=== PATIENT | female | born 2005 | race African-American/Black ===

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

== ENCOUNTER 2023-10-01 14:29 | Outpatient (CLI) | payer OTHER, SELFPAY ==
[2023-10-01] VITALS (8 sets, daily range): BP systolic 134–146; BP diastolic 90–102; PULSE 78–90; BMI 23.1
[2023-10-01 15:22] LABS: Basophils Percent Auto 0.6 % (0.2-1.2); Eosinophils Absolute Auto 0.1 K/mm3 (0-0.3); Eosinophils Percent Auto 1.9 % (0-4.4); Hematocrit 27.9 % (37.0-47.0); Hemoglobin 9.2 g/dL (12.0-15.0); Immature Granulocyte Absolute 0.07 K/mm3 (0.00-0.031); Immature Granulocyte Percent A 1.4 % (0-0.5); Lymphocytes Absolute Auto 1.04 K/mm3 (0.9-3.2); Lymphocytes Percent Auto 20.2 % (18.3-44.2); Mean Corpuscular Hemoglobin 26.6 pg (26-34); Mean Corpuscular Volume 80.6 fl (80-100); Mean Platelet Volume 9.7 fl (7.4-10.4); Monocytes Absolute Auto 0.5 K/mm3 (0.1-0.6); Monocytes Percent Auto 8.9 % (2.6-8.5); Neutrophils Absolute Auto 3.5 K/mm3 (1.3-6.7); Platelet Count Result 217 k/mm3 (150-375); Red Blood Count 3.46 M/mm3 (4.2-5.4); Red Cell Distribution Width 14.4 % (11.5-14.5); White Blood Count 5.2 K/mm3 (4.5-10.0)
[2023-10-01 15:35] LABS: Alanine Aminotransferase 11 U/L (6-35); Albumin Level 3.5 g/dL (3.5-5.1); Alkaline Phosphatase 189 U/L (38-126); Anion Gap 7 mmol/L (8-16); Aspartate Amino Transferase 24 U/L (14-36); Bilirubin,Total 1.3 mg/dL (0.2-1.3); Blood Urea Nitrogen 3 mg/dL (7-17); Calcium 8.6 mg/dL (8.4-10.2); Carbon Dioxide 22 mmol/L (22-30); Chloride 105 mmol/L (98-107); Estimated CRCL calculation 110 ml/min; Estimated Glomerular Filt Rate > 60; Glucose 77 mg/dL (65-110); Potassium 3.3 mmol/L (3.4-5.0); Sodium 134 mmol/L (137-145); Uric Acid 4.2 mg/dL (2.5-7.5)
[2023-10-01 15:42] LABS: Appearance Urine Cloudy (Clear); Bacteria Urine Rare /hpf; Bilirubin Urine Negative (Negative); Blood Urine Negative (Negative); Color Urine Yellow (Yellow); Glucose Urine UA Negative (Negative); Ketones Urine Negative (Negative); Leukocyte Esterase Ur Trace LEU/UL (Negative); Need Manual Microscopic Reviewed; Nitrate Urine Negative (Negative); Non Pathogenic Casts 0-2; Protein Urine Negative (Negative); RBC Urine 0-2 /hpf (0-2); Specific Grav Ur 1.003 (1.001-1.035); Squamous Epithelial Cell Urine Few /hpf (Few); WBC Urine 0-5 /hpf
[2023-10-01 15:46] LABS: Add Urine Microscopic? YES
[2023-10-01 15:59] LABS: Creatinine Urine 24.3 mg/dL; Total Protein Urine Random 15 mg/dL; Ur Ttl Prot Creatinine Ratio 0.62 mg/mg (0-0.20)
--- NOTE | 2023-10-01 16:17 | PC.NURSE ---
1604 called Servando Tavera to give labs and BP updates. Servando Tavera to talk to Dr Perez and call back. 1609 Liang called back pt to follow up in office friday, pt will receive call from office also one time pill 20mEq potassium tab then Ok to DC pt home
[2023-10-01] MEDS: POTASSIUM CHLORIDE 20 MEQ ER TABLET PO (16:46)
== END 2023-10-01 16:51 | disposition home or self-care (01) ==
LOC: ANHOBOP 14:34 → ANHOBPP 14:46
PROVIDERS: Visit Provider Obstetrics & Gynecology
DX: O13.9 Gestational [pregnancy-induced] hypertension without significant proteinuria, unspecified trimester (principal); Z3A.00 Weeks of gestation of pregnancy not specified
CPT/HCPCS: 36415; 59025; 80053; 81001; 82570; 84156; 84550; 85025; 99199; A9270

== ENCOUNTER 2023-10-03 15:21 | Outpatient (RCR) | payer OTHER, SELFPAY ==
[2023-10-03 15:46] VITALS: BP 140/88; PULSE 90
[2023-10-03 15:54] VITALS: BP 140/88; PULSE 88
== END 2024-01-01 23:59 | disposition home or self-care (01) ==
LOC: ANHLDR 15:21
PROVIDERS: Visit Provider Obstetrics & Gynecology
DX: O16.3 Unspecified maternal hypertension, third trimester (principal); Z3A.36 36 weeks gestation of pregnancy
CPT/HCPCS: 59025

== ENCOUNTER 2025-05-26 15:37 | Observation (INO) | payer MEDICAID, SELFPAY ==
[2025-05-26] VITALS (11 sets, daily range): BP systolic 108–124; BP diastolic 58–74; PULSE 78–107; BMI 23.9
[2025-05-26 16:33] LABS: Add Urine Microscopic? YES; Appearance Urine Clear (Clear); Glucose Urine UA Negative (Negative); Leukocyte Esterase Ur Trace LEU/UL (Negative); Nitrate Urine Negative (Negative); Non Pathogenic Casts 0-2; Specific Grav Ur 1.019 (1.001-1.035)
[2025-05-26] MEDS: ACETAMINOPHEN 500 MG TABLET 1000 MG PO (17:40)
[2025-05-26] MEDS: CAFFEINE 200 MG TABLET PO (17:42)
--- NOTE | 2025-05-26 18:54 | OBADM ---
This patient, Gisela Bates, admitted to the OB room OB Post 115 at 1537 for observation. Patient/family oriented to hospital policies and general routines including ID bracelet, bed and alarms, visiting hours, pain management, procedures, bathroom and other care routines, personal items, smoking policy, room service/diet, and visiting hours. Patient/Family are encouraged to report perceived risks to care and to ask questions if they do not understand what they are told or what they should do.
[2025-05-26] MEDS: METOCLOPRAMIDE HCL 10 MG TABLET PO (20:22)
[2025-05-26] MEDS: diphenhydrAMINE HCl CAP 25 MG CAPSULE PO (20:22)
--- NOTE | 2025-05-26 22:36 | PC.NURSE ---
Provider, Dr. Le, notified at 2134 regarding patient status. Provider notified that patient is complaining of a headache of 7/10 and back pain as a 10/10. Provider updated of medications given during stay. Per Dr. Le, do a cervical exam to check for any dilation. If no signs of labor, patient to discharge home and to follow up with him in the office. Patient updated on discharge plan. Patient notes does not have a ride but will call to see if someone can order an Uber. Verified plan with patient and found patient teary eyed and states that headache pain is a 10/10 and back pain is a 10/10. This RN updated Dr. Le at 0. Updated Dr. Le of hx of Pre-eclampsia with previous . Due to blood pressures within normal range, orders to discharge home and follow up in the office on 05/27/2025. Patient updated on plan and voiced understanding and will call an Uber for discharge.
--- NOTE | 2025-06-15 22:14 | PM.OBTRLD ---
OB - Triage/Final Diagnosis Visit Information Comments/Additional reasons for admission: I have assessed the risk for this patient, Gisela Bates, and determined that she would benefit from observation care. Evaluation Laboratory results: Laboratory Tests 05/26/25 16:11 Urine Color Yellow Urine Appearance Clear Urine pH 7.5 Ur Specific [place] 1.019 Urine Protein Negative Urine Glucose (UA) Negative Urine Ketones Negative Ur Blood (Man) Negative Urine Nitrate Negative Urine Bilirubin Negative Urine Urobilinogen 4.0 H Leukocyte Esterase Rfl Trace H Urine RBC 3-5 H Urine WBC 0-5 Ur Squamous Epith Cells Occasional Urine Bacteria None seen Urine Casts 0-2 Final Diagnosis (1) Back pain affecting : Code(s): O99.891 - Other specified diseases and conditions complicating ; M54.9 - Dorsalgia, unspecified Status: Acute
== END 2025-05-26 23:00 | disposition home or self-care (01) ==
PROVIDERS: Admitting Provider Obstetrics & Gynecology; Visit Provider Obstetrics & Gynecology
DX: O99.891 Other specified diseases and conditions complicating pregnancy (principal); M54.9 Dorsalgia, unspecified; Z3A.33 33 weeks gestation of pregnancy
CPT/HCPCS: 81001; A9270; G0378; G0379

== ENCOUNTER 2025-06-07 08:41 | Outpatient (CLI) | payer MEDICAID, SELFPAY ==
[2025-06-07] VITALS (12 sets, daily range): BP systolic 111–125; BP diastolic 62–77; PULSE 78–91
[2025-06-07 10:08] LABS: Add Urine Microscopic? YES; Appearance Urine Clear (Clear); Glucose Urine UA Negative (Negative); Leukocyte Esterase Ur Trace LEU/UL (Negative); Nitrate Urine Negative (Negative); Non Pathogenic Casts 0-2; Specific Grav Ur 1.006 (1.001-1.035)
--- NOTE | 2025-06-07 11:38 | PC.NURSE ---
Spoke to Dr. Perez (operations intelligence for Dr. Le) Discused pt. came in for leaking and back pain. UA insignificant, contractions were 2-7 minutes apart but have become uterine irritability with PO hydration. Pt. has had recurring HAs and back pain given tylenol and Flexeril in the past without relief. Orders received to send pt. home and pt. can have tylenol if needed and needs to continue with PO hydration.
--- NOTE | 2025-06-07 11:56 | LDADM ---
This patient, Gisela Bates, was admitted to OB Post 116 on at 08:41. Plans for labor, pain management and were discussed with patient. Patient/family oriented to hospital policies and general routines including ID bracelet, bed and alarms, visiting hours, pain management, procedures, bathroom and other care routines, personal items, smoking policy, room service/diet and guest tray routines, security routines, and visiting hours. Patient/Family are encouraged to report perceived risks to care and to ask questions if they do not understand what they are told or what they should do. See [facility] for further documentation.
[2025-06-07 12:03] LABS: OBXCEM ROM Plus Negative (Negative)
== END 2025-06-07 13:32 | disposition home or self-care (01) ==
LOC: ANHOBOP 08:46 → ANHOBPP 08:46
PROVIDERS: Visit Provider Obstetrics & Gynecology
DX: O42.90 Premature rupture of membranes, unspecified as to length of time between rupture and onset of labor, unspecified weeks of gestation (principal); Z3A.00 Weeks of gestation of pregnancy not specified
CPT/HCPCS: 81001; 84112; 99199

== ENCOUNTER 2025-07-01 06:11 | Inpatient (IN) | payer MEDICAID, SELFPAY ==
[2025-07-01] VITALS (152 sets, daily range): BP systolic 95–135; BP diastolic 42–108; PULSE 36–153; RESP 17–20; TEMP 36.1–37.3; O2SAT 90–100
--- OUTSIDE RECORDS SUMMARY | 2025-07-01 06:17 | XMS_ITS | Continuity of Care Document ---
Author Organization [facility] Address [address] [place] [address] Assessment No assessment recorded. Plan of Treatment Reminders Order Date Submit Date Provider Last Modified By Organization Details Last Modified Time Details Appointments INDUCTI ON 2024 06:30A Alondra LE MD Not available Not available Not available U/S OB BPP 2024 09:30A M ULTRASOUND Not available Not available Not available NST 2024 10:00A M NST SCHEDULE Not available Not available Not available OB ROUTINE 2024 10:30A M Vincent LE MD Not available Not available Not available Lab None recorde d. Referral None recorde d. Procedures None recorde d. Surgeries None recorde d. Imaging None recorde d. Medication Orders cyclobe nzaprin e 5 mg tablet [address] [place] [address] [id number], [address] [facility], [place], [place], [id number], 05/27/2025 09:39:42 Patient TargetsNo targets recorded. Patient InstructionsNo instructions recorded. Reason for Referral None Reported. Results Created Date Observation Date Name Description Value Unit Range Abnormal Flag Note LastModifiedBy Organization Detail LastModifiedTime 03/17/2003/17/2025 CULTU RE: URINE result report SEE RESULT S BELOW Test: Cultu re: Urine Speci men Sourc e: Urine Voide d Speci men Type: Urine Speci men Date: 2024 1305 Resul t Date: 025 0618 Resul t Statu s: Final resul t Abnor mal: No Ivonne negreteg Lab: [facility] [address] [facility] [address] Tel: CULTU RE ----- ----- ----- --- No growt h in 1 day (dete ction level of 10,00 0 colon ies / ml.) Not Available [facility] (Lab) [address] [facility], [place], [address], 03/19/2025 07:23:20 03/17/2003/17/2025 CBC W/DIF F WBC 5.0 10'3/ uL 3.5-10 .5 Not Available [facility] (Lab) [address] [facility], [place], [address], 03/21/2025 14:27:06 03/17/20 25 03/17/2025 CBC W/DIF F RBC 3.57 10'6/ uL (based on docume nted legal sex) 3.80-5 .20 low Not Available [facility] (Lab) [address] [place], [address], 03/21/2025 14:27:06 03/17/20 25 03/17/2025 CBC W/DIF F HGB 10.5 g/dL (based on docume nted legal sex) 11.6-1 5.4 low Not Available [facility] (Lab) [address] [place], [address], 03/21/2025 14:27:06 03/17/20 25 03/17/2025 CBC W/DIF F HCT 30.2 % (based on docume nted legal sex) 34.0-4 5.0 low Not Available [facility] (Lab) [address] [place], [address], 03/21/2025 14:27:06 03/17/20 25 03/17/2025 CBC W/DIF F MCV 84.6 fL 80.0-9 9.0 Not Available [facility] (Lab) [address] [facility], [place], [address], 03/21/2025 14:27:06 03/17/20 25 03/17/2025 CBC W/DIF F MCH 29.4 pg 27.0-3 4.0 Not Available [facility] (Lab) [address] [facility], [place], [address], 03/21/2025 14:27:06 03/17/20 25 03/17/2025 CBC W/DIF F MCHC 34.8 g/dL 32.0-3 5.5 Not Available [facility] (Lab) [address] [facility], [place], [address], 03/21/2025 14:27:06 03/17/20 25 03/17/2025 CBC W/DIF F RDW 13.3 % 11.0-1 5.0 Not Available [facility] (Lab) [address] [facility], [place], [address], 03/21/2025 14:27:06 03/17/20 25 03/17/2025 CBC W/DIF F plt 235 10'3/ uL 150-40 0 Not Available [facility] (Lab) [address] [facility], [place], [address], 03/21/2025 14:27:06 03/17/20 25 03/17/2025 CBC W/DIF F MPV 10.4 fL 8.8-12 .1 Not Available [facility] (Lab) [address] [facility], [place], [address], 03/21/2025 14:27:06 03/17/20 25 03/17/2025 CBC W/DIF F NRBC's 0.0 % 0.0 Not Available [facility] (Lab) [address] [facility], [place], [address], 03/21/2025 14:27:06 03/17/20 25 03/17/2025 CBC W/DIF F absolute NRBCs 0.0 10'3/ uL no refere nce range establ ished Not Available [facility] (Lab) [address] [facility], [place], [address], 03/21/2025 14:27:06 03/17/20 25 03/17/2025 CBC W/DIF F neutrophils 72.4 % 34.0-7 3.0 Not Available [facility] (Lab) [address] [facility], [place], [address], 03/21/2025 14:27:06 03/17/20 25 03/17/2025 CBC W/DIF F lymphocytes 14.4 % 15.0-5 0.0 low Not Available [facility] (Lab) [address] [facility], [place], [address], 03/21/2025 14:27:06 03/17/20 25 03/17/2025 CBC W/DIF F monocytes 6.6 % 1.0-15 .0 Not Available [facility] (Lab) [address] [facility], [place], [address], 03/21/2025 14:27:06 03/17/20 25 03/17/2025 CBC W/DIF F eosinophils 5.2 % 0.0-8. 0 Not Available [facility] (Lab) [address] [facility], [place], [address], 03/21/2025 14:27:06 03/17/20 25 03/17/2025 CBC W/DIF F basophils 0.4 % 0.0-2. 0 Not Available [facility] (Lab) [address] [facility], [place], [address], 03/21/2025 14:27:06 03/17/20 25 03/17/2025 CBC W/DIF F immature granulocytes 1.0 % no define d refere nce range Immat ure Granu locyt es (IG) repre sents autom ated enume ratio n of Metam yeloc ytes, Myelo cytes and Promy elocy freda when IG is < 5%. Blast s are not inclu ded in IG and repor jluis separ ately if prese nt. Not Available [facility] (Lab) [address] [facility], [place], [address], 03/21/2025 14:27:06 03/17/20 25 03/17/2025 CBC W/DIF F absolute neutrophils 3.6 10'3/ uL 1.5-8. 0 Not Available [facility] (Lab) [address] [facility], [place], [address], 03/21/2025 14:27:06 03/17/20 25 03/17/2025 CBC W/DIF F absolute lymphocytes 0.7 10'3/ uL 1.0-4. 0 low Not Available [facility] (Lab) [address] [facility], [place], [address], 03/21/2025 14:27:06 03/17/20 25 03/17/2025 CBC W/DIF F absolute monocytes 0.3 10'3/ uL 0.2-1. 0 Not Available [facility] (Lab) [address] [facility], [place], [address], 03/21/2025 14:27:06 03/17/20 25 03/17/2025 CBC W/DIF F absolute eosinophils 0.3 10'3/ uL 0.0-0. 6 Not Available [facility] (Lab) [address] [facility], [place], [address], 03/21/2025 14:27:06 03/17/20 25 03/17/2025 CBC W/DIF F absolute basophils 0.0 10'3/ uL 0.0-0. 3 Not Available [facility] (Lab) [address] [facility], [place], [address], 03/21/2025 14:27:06 03/17/20 25 03/17/2025 CBC W/DIF F absolute immature granulocytes 0.1 10'3/ uL 0.00-0 .10 Refer ence range s for nonbi nary/ inter sex or unspe cifie d gende r patie nts have not been estab lishe d. Ivet espinosa refer to the omar wing table for range s estab lishe d for cisge nder patie nts and evalu ate in the clini smita ronaldo xt of the indiv idual patie nt: https ://la bhand book. nm.or g/gen derx Not Available [facility] (Lab) [address], [place], [address], 03/21/2025 14:27:06 03/17/20 25 03/17/2025 HIV 1/2 ANTIG EN/AN TIBOD Y, REFLE X CONFI RMATI ON HIV antigen/anti body Nonrea ctive nonrea ctive HIV-1 antig en and HIV-1 /HIV- 2 antib odies were not detec jluis. No labor atory evide nce of HIV infec tion. Not Available [facility] (Lab) [address], [place], [address], 03/21/2025 14:27:06 03/17/2003/17/2025 HEPAT ITIS B SURFA CE ANTIG EN hepatitis B surface antigen Non-re active non-re active This assay was perfo rmed using [employer] ratio n reage nts and test kits. Value s obtai gayla with other assay metho ds or kits canno t be used inter lee eably . Not Available [facility] (Lab) [address], [place], [address], 03/21/2025 14:27:07 03/17/20 25 03/17/2025 HEPAT ITIS C ANTIB ELOISE SCREE N, REFLE X TO CONFI RMATI ON hepatitis C antibody Non-re active non-re active Antib odies to HCV Not Detec jluis, does not exclu de the possi bilit y of expos ure to HCV. Not Available [facility] (Lab) [address], [place], [address], 03/21/2025 14:27:07 03/17/20 25 03/17/2025 RUBEL LA IGG ANTIB ELOISE, QUANT rubella antibodies, IgG Reacti ve reacti ve Not Available [facility] (Lab) [address] [facility], [place], [address], 03/21/2025 14:27:08 03/17/20 25 03/17/2025 RUBEL LA IGG ANTIB ELOISE, QUANT rubella antibodies, IgG quant 14.2 IU/mL >=10 Non-r eacti ve (Non- Immun e) <10 IU/mL React reyna (Immu ne) > or = 10 IU/mL Not Available [facility] (Lab) [address] [facility], [place], [address], 03/21/2025 14:27:08 03/17/20 25 03/17/2025 TYPE/ RH/SC REEN ABO/Rh type B POS Not Available [facility] (Lab) [address] [facility], [place], [address], 03/21/2025 14:27:08 03/17/20 25 03/17/2025 TYPE/ RH/SC REEN antibody screen NEG Not Available [facility] (Lab) [address] [facility], [place], [address], 03/21/2025 14:27:08 03/17/20 25 03/17/2025 TYPE/ RH/SC REEN exp date 2024 23:59 Not Available [facility] (Lab) [address] [facility], [place], [address], 03/21/2025 14:27:08 03/17/20 25 03/17/2025 HEMOG LOBIN A1C hemoglobin A1C 4.5 % 4.0-5. 6 The Ameri can [employer] freda [employer] iatio n recom mends that a prima ry goal of thera bairon waldrop d be a HBA1C of < 7% and that physi cians yeceniaul d reeva luate the treat ment regim en in patie nts with HBA1C value s consi stent ly > 8%. <5.7% Evie l 5.7 - 6.4% Incre ased risk for diabe freda >=6.5 % Diagn ostic of diabe freda <7.0% Goal of thera py >8.0% Actio n sugge sted Not Available [facility] (Lab) [address] [facility], [place], [address], 03/21/2025 14:27:09 03/17/20 25 03/17/2025 RPR SCREE N, REFLE X TITER /CONF IRMAT ION RPR qualitative Reacti ve nonrea ctive abnormal A react reyna RPR resul t alone does not confi rm the prese nce of anti- Trepo nemal antib odies and shoul d be inter prete d with cauti on. This sampl e will be sent to a refer ence labor charity for Trepo nema palli dum Parti marcelo Agglu tinat ion (TP-P A) testi ng. Not Available [facility] (Lab) [address] [facility], [place], [address], 03/21/2025 14:27:09 03/17/20 25 03/17/2025 RPR SCREE N, REFLE X TITER /CONF IRMAT ION RPR titer 1:8 . none high Not Available [facility] (Lab) [address] [facility], [place], [address], 03/21/2025 14:27:09 03/17/20 25 03/17/2025 SYPHI LIS ANTIB ELOISE, TREPO NEMA PALLI DUM PARTI MARCELO AGGLU TINAT ION, SERUM syphilis Ab by TP-Pa, S Positi ve negati ve abnormal Resul t sugge sts infec tion with T. palli dum at some time in the past, but does not disti nguis h betwe en treat ed and untre ated syphi lis as trepo nemal antib odies can remai n eleva jluis despi te prope r treat ment. RPR testi ng is recom loren d to disti nguis h betwe en treat ed and untre ated syphi lis. For addit ional infor matio n on inter preta tion of the syphi lis rever se algor ithm and resul ts, see: https ://ganesh sena [employer] / it-mm files /Syph ilis_ Serol ogy_A lgori thm.p df ----- ----- ----- ----A DDITI ONAL INFOR VANNA N---- ----- ----- ----- This test is inten ded to be used as a confi rmato ry test on sampl es that have been teste d by [facility] syphi lis test. Test Perfo rmed by: [facility] [place] [address], [place] [address] Lab Direc tor: Jay Manzano nn Ph.D. ; CLIA# [id number] Not Available [facility] (Lab) [address] [facility], [place], [address], 03/21/2025 14:27:10 03/29/2003/29/2025 CT/GC AND TRICH OMONA S VAGIN SILVA (RRNA ), URINE chlamydia trachomatis, PCR Negati ve negati ve Not Available [facility] (Lab) [address] [facility], [place], [address], 03/30/2025 14:21:33 03/29/2003/29/2025 CT/GC AND TRICH OMONA S VAGIN SILVA (RRNA ), URINE neisseria gonorrhoeae, PCR Negati ve negati ve Not Available [facility] (Lab) [address] [facility], [place], [address], 03/30/2025 14:21:33 03/29/2003/29/2025 CT/GC AND TRICH OMONA S VAGIN SILVA (RRNA ), URINE trichomonas vaginalis ribosomal RNA (rrna) Negati ve negati ve Not Available [facility] (Lab) [address] [facility], [place], [address], 03/30/2025 14:21:33 04/20/20 25 04/20/2025 HEMAT OCRIT (HCT) HCT 29.1 % (based on docume nted legal sex) 34.0-4 5.0 low Not Available [facility] (Lab) [address] [facility], [place], [address], 04/23/2025 15:25:44 04/20/20 25 04/20/2025 HEMOG LOBIN (HGB) HGB 9.3 g/dL (based on docume nted legal sex) 11.6-1 5.4 low Not Available [facility] (Lab) [address] [facility], [place], [address], 04/23/2025 15:25:45 04/20/20 25 04/20/2025 HIV 1/2 ANTIG EN/AN TIBOD Y, REFLE X CONFI RMATI ON HIV antigen/anti body Nonrea ctive nonrea ctive HIV-1 antig en and HIV-1 /HIV- 2 antib odies were not detec jluis. No labor atory evide nce of HIV infec tion. Not Available [facility] (Lab) [address] [facility], [place], [address], 04/23/2025 15:25:45 04/20/20 25 04/20/2025 RPR SCREE N, REFLE X TITER /CONF IRMAT ION RPR qualitative Reacti ve nonrea ctive abnormal A react reyna RPR resul t alone does not confi rm the prese nce of anti- Trepo nemal antib odies and shoul d be inter prete d with cauti on. This sampl e will be sent to a refer ence labor atory for Trepo nema palli dum Parti marcelo Agglu tinat ion (TP-P A) testi ng. Not Available [facility] (Lab) [address] [facility], [place], [address], 04/23/2025 15:25:46 04/20/20 25 04/20/2025 RPR SCREE N, REFLE X TITER /CONF IRMAT ION RPR titer 1:8 . none high Not Available [facility] (Lab) [address], [place], [address], 04/23/2025 15:25:46 04/20/20 25 04/20/2025 SYPHI LIS ANTIB ELOISE, TREPO NEMA PALLI DUM PARTI MARCELO AGGLU TINAT ION, SERUM syphilis Ab by TP-Pa, S Positi ve negati ve abnormal Resul t sugge sts infec tion with T. palli dum at some time in the past, but does not disti nguis h betwe en treat ed and untre ated syphi lis as trepo nemal antib odies can remai n eleva jluis despi te prope r treat ment. RPR testcedric fonseca is recom loren d to disti nguis h betwe en treat ed and untre ated syphi lis. For addit ional infor vanna n on inter preta tion of the syphi lis rever se algor ithm and resul ts, see: https ://ganesh sena [employer] / it-mm files /Syph ilis_ Serol ogy_A lgori thm.p df ----- ----- ----- ----A DDITI ONAL INFOR MATNOHEMY N---- ----- ----- ----- This test is inten ded to be used as a confi rmato ry test on sampl es that have been teste d by [facility] syphi lis test. Test Perfo rmed by: [facility] [place] [address], [place] [address] Lab Direc tor: Jay Manzano nn Ph.D. ; CLIA# [id number] Not Available [facility] (Lab) [address] [facility], [place], [address], 04/23/2025 15:25:46 05/27/20 25 05/27/2025 PROTE IN/CR EATIN INE RATIO , URINE creatinine, urine 123.0 mg/dL R-No refer ence range estab lishe d for this assay Not Available [facility] (Lab) [address] [facility], [place], [address], 05/28/2025 10:30:45 05/27/20 25 05/27/2025 PROTE IN/CR EATIN INE RATIO , URINE protein, urine 22 mg/dL R-No refer ence range estab lishe d for this assay Not Available [facility] (Lab) [address] [facility], [place], [address], 05/28/2025 10:30:45 05/27/20 25 05/27/2025 PROTE IN/CR EATIN INE RATIO , URINE protein/crea tinine ratio, urine 0.18 . No Refer ence Range avail able for Rando m Urine s. A prote in to creat inine ratio of >=0.1 9 is a good predi ctor of signi fican t prote inuri a. A level of <0.14 can rule out signi fican t prote inuri a. Not Available [facility] (Lab) [address] [facility], [place], [address], 05/28/2025 10:30:45 03/17/20 25 03/17/2025 US, obste tric, 2nd or 3rd trime ster No observ ation record ed. [email or web address] [address], [place], [address], 03/17/2025 15:45:06 03/17/20 25 03/17/2025 US, obste tric, 2nd or 3rd trime ster No observ ation record ed. [email or web address] [place] [address], [place], [address], 03/17/2025 12:51:02 03/17/20 25 03/17/2025 US, obste tric, 2nd or 3rd trime ster No observ ation record ed. [email or web address] [facility] [address], [place], [address], 04/07/2025 21:57:11 03/17/20 25 03/17/2025 US, obste tric, 2nd or 3rd trime ster No observ ation record ed. [email or web address] [facility] [address], [place], [address], 03/17/2025 23:04:51 03/17/20 25 03/17/2025 US, obste tric, 2nd or 3rd trime ster No observ ation record ed. [email or web address] [facility] [address], [place], [address], 03/17/2025 15:45:46 03/17/20 25 03/17/2025 US, obste tric, 2nd or 3rd trime ster No observ ation record ed. [email or web address] [facility] [address], [place], [address], 03/18/2025 17:16:02 05/18/2005/18/2025 , obste tric, follo w-up No observ ation record ed. [facility] [address], [place], [address], 05/18/2025 18:23:17 05/18/2005/18/2025 US, obste tric, follo w-up No observ ation record ed. [email or web address] [address] [address], [place], [address], 05/20/2025 13:20:22 05/25/2005/25/2025 , obste tric, bioph ysica l profi le + non-s tress test No observ ation record ed. [facility] [address], [place], [address], 05/25/2025 17:34:34 05/25/20 25 05/25/2025 US, obste tric, follo w-up No observ ation record ed. [email or web address] [facility] [address], [place], [address], 05/26/2025 14:44:53 05/25/2005/25/2025 non-s tress test No observ ation record ed. [email or web address] [place] [address], [place], [address], 05/25/2025 18:39:52 05/25/20 non-s tress test No observ ation record ed. [email or web address] [place] [address], [place], [address], 05/25/2025 17:32:07 05/30/2005/30/2025 US, obste tric, bioph ysica l profi le + non-s tress test No observ ation record ed. [email or web address] [place] [address], [place], [address], 05/30/2025 12:42:17 05/30/2005/30/2025 US, obste tric, bioph ysica l profi le + non-s tress test No observ ation record ed. [email or web address] [address] [address], [place], [address], 05/30/2025 17:35:43 05/30/2005/30/2025 non-s tress test No observ ation record ed. [email or web address] [place] [address], [place], [address], 05/30/2025 13:00:42 05/30/20 non-s tress test No observ ation record ed. [email or web address] [place] [address], [place], [address], 05/30/2025 13:02:59 06/06/2006/06/2025 US, obste tric, bioph ysica l profi le + non-s tress test No observ ation record ed. [email or web address] [place] [address], [place], [address], 06/06/2025 14:28:11 06/06/2006/06/2025 US, obstjesús tric, bioph ysica l profi le + non-s tress test No observ ation record ed. [email or web address] [address] [address], [place], [address], 06/06/2025 15:10:23 06/07/2006/07/2025 non-s tress test No observ ation record ed. [email or web address] [place] [address], [place], [address], 2025 20:27:42 06/07/20 non-s tress test No observ ation record ed. [email or web address] Not Available 2024 15:33:58 06/13/2006/13/2025 US, obste tric, follo w-up No observ ation record ed. [email or web address] [facility] [address], [place], [address], 06/14/2025 10:34:08 06/13/2006/13/2025 non-s tress test No observ ation record ed. [email or web address] [place] [address], [place], [address], 06/19/2025 18:04:34 06/13/20 non-s tress test No observ ation record ed. [email or web address] [place] [address], [place], [address], 06/13/2025 18:04:44 06/13/20 25 06/14/2025 US, obste tric, follo w-up No observ ation record ed. [email or web address] [place] [address], [place], [address], 06/14/2025 13:38:03 06/13/20 25 06/14/2025 US, obste tric, bioph ysica l profi le + non-s tress test No observ ation record ed. [email or web address] [place] [address], [place], [address], 06/14/2025 13:38:17 06/15/20 25 2025 non-s tress test No observ ation record ed. [facility] [address], [place], [address], 06/17/2025 09:42:27 06/20/2006/20/2025 US, obste tric, bioph ysica l profi le + non-s tress test No observ ation record ed. [email or web address] [place] [address], [place], [address], 06/20/2025 13:28:54 06/20/20 25 06/20/2025 US, obste tric, follo w-up No observ ation record ed. [email or web address] [facility] [address], [place], [address], 06/20/2025 16:32:26 06/20/20 25 06/20/2025 non-s tress test No observ ation record ed. [email or web address] [place] [address], [place], [address], 06/20/2025 18:00:22 06/20/20 non-s tress test No observ ation record ed. [place] [address], [place], [address], 06/20/2025 17:57:42 06/27/20 25 06/27/2025 US, obste tric, bioph ysica l profi le No observ ation record ed. [email or web address] [facility] [address], [place], [address], 06/28/2025 11:16:29 06/27/2006/27/2025 US, obste tric, bioph ysica l profi le + non-s tress test No observ ation record ed. [facility] [address], [place], [address], 06/27/2025 18:49:37 06/27/2006/27/2025 non-s tress test No observ ation record ed. [facility] [address], [place], [address], 06/27/2025 18:50:27 06/27/20 non-s tress test No observ ation record ed. [email or web address] [place] [address], [place], [address], 06/27/2025 12:29:10 Result Notes None recorded. Problems Name Problem SNOMED Code Status Onset Date Resolution Date Notes Provider Name and Address Organization Details Recorded Time Anemia 259554539 Completed Trino serrano, [facility] 4 13:00:34 Pre-ecla mpsia 237333412 Completed 37w Delivery , 2x/wk antenata l testing Trino Moulton [facility] 4 13:00:34 Group B Streptoc occus carrier [id number] 103 Completed AMP in labor Trino serrano [facility] 4 13:00:33 Pregnanc y 42025348 Completed 202210/27/2023 Jazz serrano [facility] 5 12:31:25 Syphilis 16399932 Completed 2022 no s/s, +fta abs- tx schedule d 06/05,, 2 Trino Moulton [facility], [facility] 4 13:00:34 Infectio n by Analia hidalgo [id number] Completed 2022 2/2 positive - tinidazo le tx 2/5 - RONEN in 4wks Trino Moulton [facility] 4 13:00:34 Gonorrhe a [id number] Completed 2022 PA sent 08/20 for Ceftriax one - RONEN NEGATIVE rTino Moulton [facility] 4 13:00:34 Pregnanc y [id number] Active 2024 Jazz Yonis [facility], [facility] 5 12:31:25 Past pregnanc y history of pre-ecla mpsia [id number] Active 2024 recommen ded ASA previous delivery PTL 36w6d 10/08/23 EDC 10/30/23 antenata l testing Juaan Warner [facility] 5 11:26:48 History of syphilis [id number] Active 2024 treated in previous pregnanc y titers 05/2023 1:32 decrease d to 1:8 03/17 Juana Warner [facility] 5 11:51:07 History of chlamydi al infectio n [id number] Active 2024 Isidro Le MD [address], [place], [address], [facility] 5 12:53:43 Iron deficien cy anemia 42079539 Active 2024 hgg decrease d 03-17 to 9-3 Iron infusion order faxed 05/04 _ pending insuranc e) Juana Timmy serrano [facility] 5 11:03:51 Finding of arrangem ent of fetus 12470227 Active 2024 Transver se Isidro Le MD [address], [place], [address], [facility] 17:33:30 Problem Notes None recorded. Medical Equipment None Reported. Allergies No known drug allergies Medications Name Sig Start Date Stop Date Status Note LastModified by Organization Details LastModified Time fluconazo le 150 mg tablet TAKE 1 TABLET BY MOUTH DAILY AT ONSET OF INFECTIO N FOR 3 DAYS. MAY REPEAT 1 TIME EVERY 3 DAYS 12/10 completed Not Available Not Available Not Available metronida zole 500 mg tablet TAKE 1 TABLET BY MOUTH TWICE DAILY 12/10 completed Not Available Not Available Not Available clotrimaz ole-betam ethasone 1 %-0.05 % topical cream APPLY TOPICALL Y TO THE AFFECTED AND SURROUND ING AREAS TWICE DAILY IN THE MORNING AND IN THE EVENING FOR 2 WEEKS 09/16 completed Not Available Not Available Not Available promethaz ine 25 mg tablet Take 1 tablet every 4 hours by oral route. 05/27 completed Not Available Not Available Not Available Bicillin L-A 2,400,000 unit/4 mL intramusc ular syringe Inject 2.4 million units IM weekly for 3 weeks 09/16 completed Not Available Not Available Not Available clindamyc in 2 % vaginal cream INSERT ONE APPLICAT ORFUL VAGINALL Y AT BEDTIME FOR 7 DAYS 12/10 completed Not Available Not Available Not Available ceftriaxo ne 500 mg solution for injection 500 mg single dose injectio n 09/16 completed Not Available Not Available Not Available Bicillin L-A 1,200,000 unit/2 mL intramusc ular syringe Inject 2.4 million units by intramus cular route. 09/16 completed INJECTIO NS GIVEN IN RIGHT AND LEFT HIP. Not Available Not Available Not Available azithromy jigna 500 mg tablet TAKE 2 TABLETS BY MOUTH 1 TIME 12/10 completed Not Available Not Available Not Available cyclobenz aprine 5 mg tablet TAKE 1 TABLET BY MOUTH THREE TIMES DAILY active Not Available Not Available No t Available tinidazol e 500 mg tablet Take 4 tablets by mouth once. 12/10 completed Not Available Not Available Not Available Tylenol 12/10 completed Not Available Not Available Not Available Slow Release Iron 142 mg (45 mg iron) tablet,ex tended release Take 1 tablet 3 times a day by oral route. 12/10 completed Not Available Not Available Not Available Vitals Date Recorded Body height Body mass index (BMI) Body weight Systolic And Diastolic Provider Name and Address Organization Details Last Updated DateTime 05/27/2025 165.1 cm 23 kg/m2 80321.75 g 120/78 mm[Hg] Jazz Somers [facility] 05/27/2025 09:42:01 Social History Question Answer Notes LastModified by Organizat ion Details LastModified Time Tobacco Smoking Status Never Smoker Jacqueline Eunice serrano, [facility] 03/07/2023 14:21:17 Are You Blind Or Do You Have Difficulty Seeing? No [email or web address] Information n ot available 10/01/2023 What Is Your Level Of Caffeine Consumption? Occasional [email or web address] Information not available 10/01/2023 How Much Tobacco Do You Chew? None [email or web address] Information not available 10/01/2023 In The 14 Days Before Symptom Onset, Have You Had Close Contact With A Laboratory-confirm ed COVID-19 While That Case Was Ill? No Information n ot available 10/01/2023 In The 14 Days Before Symptom Onset, Have You Had Close Contact With A Person Who Is Under Investigation For COVID-19 While That Person Was Ill? No Information not available 10/01/2023 Have You Been To An Area Known To Be High Risk For COVID-19? No [email or web address] Information not available 10/01/2023 Are You Deaf Or Do You Have Serious Difficulty Hearing? No [email or web address] Information not available 10/01/2023 What Type Of Diet Are You Following? REGULAR Information n ot available 10/01/2023 What Is The Highest Grade Or Level Of School You Have Completed Or The Highest Degree You Have Received? [id number] [email or web address] Information not available 10/01/2023 Are There Any Guns Present In Your Home? No [email or web address] Information not available 10/01/2023 Do You Use Protection During Sex? Usually [email or web address] Information not available 10/01/2023 Do You Use Your Seat Belt Or Car Seat Routinely? Yes [email or web address] Information not available 10/01/2023 Do You Have Smoke And Carbon Monoxide Detectors In Your Home? No [email or web address] Information not available 10/01/2023 How Much Tobacco Do You Smoke? No [email or web address] Information not available 10/01/2023 Do You Use Sunscreen Routinely? No [email or web address] Information not available 10/01/2023 Have You Used IV Drugs? No [email or web address] Information not available 10/01/2023 Do You Have Difficulty Walking Or Climbing Stairs? No [email or web address] Information not available 10/01/2023 Sex: Unknown Functional Status Question Answer Note LastModified by Organizat ion Details LastModified Time Do you use any illicit or recreational drugs? No [email or web address] Information not available 10/01/2023 What is your level of alcohol consumption? None [email or web address] Information not available 10/01/2023 Are you able to walk independently without assistance or assistive devices? YESWOREST [email or web address] Information not available 10/01/2023 Are you able to care for yourself independently? Yes [email or web address] Information not available 10/01/2023 Do you have difficulty dressing, bathing, grooming, or toileting? No [email or web address] Information not available 10/01/2023 What is your exercise level? Moderate [email or web address] Information not available 10/01/2023 Mental Status Question Answer Note LastModified by Organization D etails LastModified Time Do you feel stressed (tense, restless, nervous, or anxious, or unable to sleep at night)? [id number] [email or web address] Information not available 10/01/2023 Family History Relationship Description Onset Age of this Age Resolved Age Notes LastModified by Organization Details LastModified Time Father No current problems or disability [email or web address] Not available 12/10 15:37:19 Mother No current problems or disability [email or web address] Not available 04/25 /2025 15:37:19 Medical History Condition Response Allergies (Food, seasonal, environmental ) N Other N Drug/Latex Allergies/Reactions N Blood Transfusion N Breast Cancer N Dermatologic Disorders N Lung Disease N Defects or Inherited Disease N Breast Problem N Gestational Diabetes N Hematologic disorders N Anesthesia Complications N History of STI Y Deep Vein Thrombosis N Polycystic ovary syndrome N Anxiety Disorder N Autoimmune disease N Arthritis N Polyps N Infertility N Acid Reflux (GERD) N History of abnormal pap N Cancer N Varicosities N Stroke N Neurologic/Epilepsy N Endometriosis N High Cholesterol N Fibromyalgia N Headaches N Kidney Disease N Heart Problems N Thyroid Problems N Kidney or Bladder Problems N GI Problems N Eating Disorder N Anemia N Art (IVF or FET) N Psychiatric Illness N Ovarian Cancer N Diabetes N Pulmonary (TB, Asthma) N Hepatitis/Liver Disease N No Past Medical History N Eczema N Urinary Tract Infection N Abuse/Domestic Violence N Asthma N Trauma/Violence N Depression/ depression N Heart Disease N Pre-Eclampsia N Hypertension N Osteoporosis N Thrombophilias N Gynecological History Statement/Question Response Flow Moderate Date of Last Mammogram Date of LMP 10/06/2024 Was last menstrual period normal Y STIs/STDs Yes HPV Vaccine N Duration of Flow (days) 4 Current Control Method Are cycles usually normal Y Frequency of Cycle (Q days) 28 Sexually Active? Y Menses Monthly Y Date of DEXA bone scan Age of first menstrual cycle 14 Date of Last Pap Smear Sexual Problems? N LMP Definite Obstetrics History GPAL:G 2 P 1 0 0 1 Type Value Full Term 1 Living 1 Total 2 Past Encounters Encounter ID Performer Location Encounter Start Date Encounter Closed Date Diagnosis/Indication Diagnosis SNOMED-CT Code Diagnosis ICD10 Code Diagnosis IMO Codes Diagnosis Note [id number] Isidro Le MD [place] [address],[facility] [place] [address] 05/05/2025 16:07:26 05/05/2025 17:26:18 care status 880034187 Z34.83 [id number] MD Clay Aragon [address],[facility] [place] [address] 05/18/2025 15:16:07 05/18/2025 15:56:40 care: obstetric risk [id number] O09.293 Z3A.32 [id number] Isidro Le MD [place] [address],[place] [address] 05/18/2025 15:17:46 05/18/2025 16:51:15 care status 696139016 Z34.83 [id number] Isidro Le MD [place] [address],[place] [address] 05/25/2025 15:01:48 05/25/2025 15:34:08 care: obstetric risk 472810761 O09.293 O09.299 Z3A.33 [id number] Isidro Le MD [place] [address],[place] [address] 05/25/2025 15:07:02 05/25/2025 17:32:49 Past history of pre-eclampsia [id number] 36709 Z87.59 [id number] Isidro eL MD [place] [address],[place] [address] 05/25/2025 15:07:21 05/25/2025 17:10:12 care status 163411993 Z34.83 [id number] Mita Tavera CNM [place] [address],[place] [address] 05/27/2025 09:25:56 05/27/2025 09:44:43 Backache 576069917 M54.9 [id number] Acute headache 164674821 R51.9 [id number] call this afternoon if no relief will try imitrex Health Concerns Section Related Observation LastModified by Organization Detai ls LastModified Time None Recorded Concern Status LastModified by Organization Details LastModified Time None Recorded Payers Encounter Date Sequence Insurance Name Policy Number Policy Vital Covered Member ID Vital Member ID Guarantor Name 05/27/2025 1 [place] [facility] Gisela Bates [id number] Gisela Bates Notes Date Note Type Note Provider Name and Address Organization Details Recorded Time 05/27/2025 text/html OB ProblemReport ed by Patient [address], [place], [address], [place] [facility] 05/27/2025 09:44:23 OBGyn Episode Ob Episode Information Episode Created Date Number of Fetuses Patient Bloodtype Patient rh Status Prepregnancy Weight lbs Domestic Partner Domestic Partner Phone Father Name Single Pointed Operator Status 03/17/20 25 1 B Positive OPEN Fetus Data First Name Last Name Admitted to NICU Weight (g) Sex Living Outcome Pediatric Complications Fetus ID Race Codes Race Delivery Type [id number] Problems Problem Notes + RPR tx spoke with [facility] confirmed pt tx previous RPR 06/05/23, 06/12, & 06/19/23 titter 1:32 decreased to 1:8 per Pat antibody can be + but titer decreasing no tx unless pt sx's rash, lesions sx's rec tx if pt sx's schedule appt for evaluation. RPT labs @ 28wks , fax all labs to health dept [phone] . 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,[employer] [employer] 03/31 pt denies sx's JGBilateral double renal artery Problem Name Start Date End Date Resolution Snomed Code Not e History of syphilis 03/17/2025 [id number] treated in previous pregnancytiters 05/2023 1:32 decreased to 1:8 03/17 Iron deficiency anemia 05/04/2025 [id number] hgg decreased - to 9-3 Iron infusion order faxed 05/04 _ pending insurance) History of chlamydial infection 03/17/2025 [id number] Past history of pre-eclampsia 03/17/2025 [id number] recommended ASAprevious delivery PTL 36w6d 10/08/23 EDC 10/30/23 testing Finding of arrangement of fetus 06/13/2025 [id number] Transverse Jerome Calculation Initial Jerome Date Initial Exam Date Initial Exam Provider Initial Ultrasound Date Last Menstrual Period Date Ultra Sound Weeks Gestation 03/17/2025 12/10/2024 10/06/2024 10 Eighteen To Twenty Week Jerome Update Ultra Sound Date Fundal Height At Umbil Quickening Date Ultra Sound Latest Weeks Gestation Final Jerome Confirmed By Final Jerome Confirmed Date Final Jerome Date Ultra Sound Latest Days Gestation 0 07/08/20 25 0 Pre- Flowsheet Flowsheet Date 03/17/2025 Solorzano Score Blood Edema Fundus Height Fundus Units Glucose Ketones Leukocytes Nitrite Labor Signs Protein Cervic Dilation Cervic Effacement Cervic Station Type Weight in lbs Pre/Post Dialysis Refused Weight 131.024673808737 BP Diastolic BP Location Tested BP Systolic BP Type 71 L arm 103 sitting Fetus Heart Rate Present A 145 Fetus Movement A Yes Comments this patient is a 19-year-ol d multiparous female at 12 weeks' gestation who presents for initial care. She has a history of term vaginal births. She has a history of preeclampsia in her previous as well as a gonorrhea/ chlamydia and syphilis infection. Her medical, surgical history is unremarkable. She was given precautions recommendations for . We talked about vaccines in . Talked about care in detail. She is having genetic testing. She had a normal 12 week ultrasound. To begin routine care. Flowsheet Date 03/29/2025 Solorzano Score Blood Edema Fundus Height Fundus Units Glucose Ketones Leukocytes Nitrite Labor Signs Protein Cervic Dilation Cervic Effacement Cervic Station Type Weight in lbs Pre/Post Dialysis Refused Weight 131.560239918013 BP Diastolic BP Location Tested BP Systolic BP Type 66 L arm 98 sitting Fetus Heart Rate Present A 148 Present Fetus Movement A Yes Comments no complaints, no problems, routine care, no contractions, no vaginal bleeding, no loss of fluid, no cramping Flowsheet Date 04/20/2025 Solorzano Score Blood Edema Fundus Height Fundus Units Glucose Ketones Leukocytes Nitrite Labor Signs Protein Cervic Dilation Cervic Effacement Cervic Station Type Weight in lbs Pre/Post Dialysis Refused 133.957829125185 BP Diastolic BP Location Tested BP Systolic BP Type 65 L arm 102 sitting Fetus Heart Rate Present A 149 Present Fetus Movement A Yes Comments no complaints, no problems, routine care, no contractions, no vaginal bleeding, no loss of fluid, no cramping negative test of cure at last visit for gonorrhea chlamydia Trichomonas, repeat RPR today along with diabetes screening. Flowsheet Date 05/05/2025 Solorzano Score Blood Edema Fundus Height Fundus Units Glucose Ketones Leukocytes Nitrite Labor Signs Protein Cervic Dilation Cervic Effacement Cervic Station Type Weight in lbs Pre/Post Dialysis Refused 135.15698329568 BP Diastolic BP Location Tested BP Systolic BP Type 74 L arm 116 sitting Fetus Heart Rate Present A 138 Present Fetus Movement A Yes Comments complaining of pelvic pain a nd low back pain. To fit for support belt. Patient to get iron infusions. They are going to contact her shortly. stable titers for syphilis Flowsheet Date 05/18/2025 Solorzano Score Blood Edema Fundus Height Fundus Units Glucose Ketones Leukocytes Nitrite Labor Signs Protein Cervic Dilation Cervic Effacement Cervic Station Type Weight in lbs Pre/Post Dialysis Refused BP Diastolic BP Location Tested BP Systolic BP Type Fetus Heart Rate Present Fetus Movement Comments Flowsheet Date 05/18/2025 Solorzano Score Blood Edema Fundus Height Fundus Units Glucose Ketones Leukocytes Nitrite Labor Signs Protein Cervic Dilation Cervic Effacement Cervic Station Type Weight in lbs Pre/Post Dialysis Refused 135.18441906438 BP Diastolic BP Location Tested BP Systolic BP Type 74 L arm 115 sitting Fetus Heart Rate Present A 136 Present Fetus Movement A Yes Comments To start testing f or preeclampsia history. No complaints today. To arrange iron infusion now. Insurance concerns. Flowsheet Date 05/25/2025 Solorzano Score Blood Edema Fundus Height Fundus Units Glucose Ketones Leukocytes Nitrite Labor Signs Protein Cervic Dilation Cervic Effacement Cervic Station Type Weight in lbs Pre/Post Dialysis Refused BP Diastolic BP Location Tested BP Systolic BP Type Fetus Heart Rate Present Fetus Movement Comments Flowsheet Date 05/25/2025 Solorzano Score Blood Edema Fundus Height Fundus Units Glucose Ketones Leukocytes Nitrite Labor Signs Protein Cervic Dilation Cervic Effacement Cervic Station Type Weight in lbs Pre/Post Dialysis Refused Weight 139.86392891736 BP Diastolic BP Location Tested BP Systolic BP Type 76 L arm 112 sitting Fetus Heart Rate Present Fetus Movement A Yes Comments Flowsheet Date 05/25/2025 Solorzano Score Blood Edema Fundus Height Fundus Units Glucose Ketones Leukocytes Nitrite Labor Signs Protein Cervic Dilation Cervic Effacement Cervic Station Type Weight in lbs Pre/Post Dialysis Refused Weight 149.12085117868 BP Diastolic BP Location Tested BP Systolic BP Type 70 L arm 124 sitting Fetus Heart Rate Present A 137 Fetus Movement A Yes Comments no complaints, no problems, routine care, no contractions, no vaginal bleeding, no loss of fluid, no cramping Flowsheet Date 05/27/2025 Solorzano Score Blood Edema Fundus Height Fundus Units Glucose Ketones Leukocytes Nitrite Labor Signs Protein Cervic Dilation Cervic Effacement Cervic Station Type Weight in lbs Pre/Post Dialysis Refused Weight 138.028733300558 BP Diastolic BP Location Tested BP Systolic BP Type 78 L arm 120 sitting Fetus Heart Rate Present A 139 Fetus Movement A Yes Comments was at [facility] yesterday wi th ruiz and back pain sent home with ruiz, rates it a 6, also low back pain, check on maternity support belt. will try flexeril to call this afternoon, would like to readmit but pt has limited transportation+FM, no other sxs, bp normotensive Flowsheet Date 05/30/2025 Solorzano Score Blood Edema Fundus Height Fundus Units Glucose Ketones Leukocytes Nitrite Labor Signs Protein Cervic Dilation Cervic Effacement Cervic Station Type Weight in lbs Pre/Post Dialysis Refused BP Diastolic BP Location Tested BP Systolic BP Type Fetus Heart Rate Present Fetus Movement Comments Flowsheet Date 05/30/2025 Solorzano Score Blood Edema Fundus Height Fundus Units Glucose Ketones Leukocytes Nitrite Labor Signs Protein Cervic Dilation Cervic Effacement Cervic Station Type Weight in lbs Pre/Post Dialysis Refused 139.928200717190 BP Diastolic BP Location Tested BP Systolic BP Type 74 L arm 119 sitting Fetus Heart Rate Present Fetus Movement A Yes Comments Flowsheet Date 05/30/2025 Solorzano Score Blood Edema Fundus Height Fundus Units Glucose Ketones Leukocytes Nitrite Labor Signs Protein Cervic Dilation Cervic Effacement Cervic Station Type Weight in lbs Pre/Post Dialysis Refused 139.758500974691 BP Diastolic BP Location Tested BP Systolic BP Type 74 L arm 119 sitting Fetus Heart Rate Present A 145 Fetus Movement A Yes Comments no complaints, no problems, routine care, no contractions, no vaginal bleeding, no loss of fluid, no cramping Flowsheet Date 06/06/2025 Solorzano Score Blood Edema Fundus Height Fundus Units Glucose Ketones Leukocytes Nitrite Labor Signs Protein Cervic Dilation Cervic Effacement Cervic Station Type Weight in lbs Pre/Post Dialysis Refused BP Diastolic BP Location Tested BP Systolic BP Type Fetus Heart Rate Present Fetus Movement Comments Flowsheet Date 06/06/2025 Solorzano Score Blood Edema Fundus Height Fundus Units Glucose Ketones Leukocytes Nitrite Labor Signs Protein Cervic Dilation Cervic Effacement Cervic Station Type Weight in lbs Pre/Post Dialysis Refused BP Diastolic BP Location Tested BP Systolic BP Type Fetus Heart Rate Present Fetus Movement Comments Flowsheet Date 06/06/2025 Solorzano Score Blood Edema Fundus Height Fundus Units Glucose Ketones Leukocytes Nitrite Labor Signs Protein Cervic Dilation Cervic Effacement Cervic Station Type Weight in lbs Pre/Post Dialysis Refused 142.038070536069 BP Diastolic BP Location Tested BP Systolic BP Type 69 L arm 109 sitting Fetus Heart Rate Present A 144 Fetus Movement A Yes Comments no complaints, no problems, routine care, no contractions, no vaginal bleeding, no loss of fluid, no cramping Flowsheet Date 06/13/2025 Solorzano Score Blood Edema Fundus Height Fundus Units Glucose Ketones Leukocytes Nitrite Labor Signs Protein Cervic Dilation Cervic Effacement Cervic Station Type Weight in lbs Pre/Post Dialysis Refused BP Diastolic BP Location Tested BP Systolic BP Type Fetus Heart Rate Present Fetus Movement Comments Flowsheet Date 06/13/2025 Solorzano Score Blood Edema Fundus Height Fundus Units Glucose Ketones Leukocytes Nitrite Labor Signs Protein Cervic Dilation Cervic Effacement Cervic Station Type Weight in lbs Pre/Post Dialysis Refused 144.492317512522 BP Diastolic BP Location Tested BP Systolic BP Type 65 L arm 98 sitting Fetus Heart Rate Present Fetus Movement A Yes Comments Flowsheet Date 06/13/2025 Solorzano Score Blood Edema Fundus Height Fundus Units Glucose Ketones Leukocytes Nitrite Labor Signs Protein Cervic Dilation Cervic Effacement Cervic Station Type Weight in lbs Pre/Post Dialysis Refused 144.462183105407 BP Diastolic BP Location Tested BP Systolic BP Type 65 L arm 98 sitting Fetus Heart Rate Present Fetus Movement A Yes Comments no complaints, no problems, routine care, no contractions, no vaginal bleeding, no loss of fluid, no cramping Flowsheet Date 06/20/2025 Solorzano Score Blood Edema Fundus Height Fundus Units Glucose Ketones Leukocytes Nitrite Labor Signs Protein Cervic Dilation Cervic Effacement Cervic Station Type Weight in lbs Pre/Post Dialysis Refused BP Diastolic BP Location Tested BP Systolic BP Type Fetus Heart Rate Present Fetus Movement Comments Flowsheet Date 06/20/2025 Solorzano Score Blood Edema Fundus Height Fundus Units Glucose Ketones Leukocytes Nitrite Labor Signs Protein Cervic Dilation Cervic Effacement Cervic Station Type Weight in lbs Pre/Post Dialysis Refused Weight 144.91324361770 BP Diastolic BP Location Tested BP Systolic BP Type 64 L arm 104 sitting Fetus Heart Rate Present Fetus Movement A Yes Comments Flowsheet Date 06/20/2025 Solorzano Score Blood Edema Fundus Height Fundus Units Glucose Ketones Leukocytes Nitrite Labor Signs Protein Cervic Dilation Cervic Effacement Cervic Station Type Weight in lbs Pre/Post Dialysis Refused 144.111648733978 BP Diastolic BP Location Tested BP Systolic BP Type 64 L arm 104 sitting Fetus Heart Rate Present A 145 Fetus Movement A Yes Comments no complaints, no problems, routine care, no contractions, no vaginal bleeding, no loss of fluid, no cramping Flowsheet Date 06/27/2025 Solorzano Score Blood Edema Fundus Height Fundus Units Glucose Ketones Leukocytes Nitrite Labor Signs Protein Cervic Dilation Cervic Effacement Cervic Station Type Weight in lbs Pre/Post Dialysis Refused BP Diastolic BP Location Tested BP Systolic BP Type Fetus Heart Rate Present Fetus Movement Comments Flowsheet Date 06/27/2025 Solorzano Score Blood Edema Fundus Height Fundus Units Glucose Ketones Leukocytes Nitrite Labor Signs Protein Cervic Dilation Cervic Effacement Cervic Station Type Weight in lbs Pre/Post Dialysis Refused 147.518545606172 BP Diastolic BP Location Tested BP Systolic BP Type 70 L arm 104 sitting Fetus Heart Rate Present Fetus Movement A Yes Comments Flowsheet Date 06/27/2025 Solorzano Score Blood Edema Fundus Height Fundus Units Glucose Ketones Leukocytes Nitrite Labor Signs Protein Cervic Dilation Cervic Effacement Cervic Station Type Weight in lbs Pre/Post Dialysis Refused 147.318971620825 BP Diastolic BP Location Tested BP Systolic BP Type 70 L arm 104 sitting Fetus Heart Rate Present A 145 Fetus Movement A Yes Comments no complaints, no problems, routine care, no contractions, no vaginal bleeding, no loss of fluid, no cramping Menstrual History Last Menstrual Date Menses Monthly On Bcp Conception Prior Menses Frequency Hcg Plus Date Menarche Onset Age 0210/06/2024 true Delivery Information Delivery Date Delivery Type Labor Anesthesia Weeks Gestation Incision Type Labor Labor Length Hrs Delivered By Post Complications Tubal Sterilization Discharge Date Comments Discharge Information Feeding Method Contraceptive Method Maternal HG B and HCT Levels
--- OUTSIDE RECORDS SUMMARY | 2025-07-01 06:17 | XMS_ITS | Continuity of Care Document ---
Author Organization [facility] Address [address] [place] [address] Assessment Encounter Date Assessment Date Assessment LastModified by Organization Details LastModified Time 04/20/2025 04/20/2025 Patient is ___weeks . Discussed plan. [email or web address] Not available 04/20/2025 14:38:46 Plan of Treatment Reminders Order Date Submit Date Provider Last Modified By Organization Details Last Modified Time Details Appointments INDUCTI ON 2024 06:30A M Vincent LE MD Not available Not [...] d. Imaging None recorde d. Medication Orders None recorde d. Patient TargetsNo targets recorded. Patient InstructionsNo instructions [...] s: Final resul t Abnor mal: No Resul penelopeg Lab: [facility] [address] [facility] [address] Tel: CULTU RE ----- ----- ----- --- No growt h in 1 day (dete ction level of 10,00 0 colon ies / ml.) Not Available [facility] (Lab) [address] [facility], [place], [address], 03/19/2025 07:23:20 03/17/20 25 03/17/2025 CBC W/DIF F WBC 5.0 10'3/ uL 3.5-10 .5 Not Available [facility] (Lab) [address] [facility], [place], [address], 03/21/2025 14:27:06 03/17/20 25 03/17/2025 CBC W/DIF F RBC 3.57 10'6/ uL (based on docume nted legal sex) 3.80-5 .20 low Not Available [facility] (Lab) [address] [facility], [place], [address], 03/21/2025 14:27:06 03/17/20 25 03/17/2025 CBC W/DIF F HGB 10.5 g/dL (based on docume nted legal sex) 11.6-1 5.4 low Not Available [facility] (Lab) [address] [facility], [place], [address], 03/21/2025 14:27:06 03/17/20 25 03/17/2025 CBC W/DIF F HCT 30.2 % (based on docume nted legal sex) 34.0-4 5.0 low Not Available [facility] (Lab) [address] [facility], [place], [address], 03/21/2025 14:27:06 03/17/20 25 03/17/2025 CBC W/DIF F MCV 84.6 fL 80.0-9 9.0 Not Available [facility] (Lab) [address] [facility], [place], [address], 03/21/2025 14:27:06 03/17/20 25 03/17/2025 CBC W/DIF F MCH 29.4 pg 27.0-3 4.0 Not Available [facility] (Lab) [address] [facility], [place], [address], 03/21/2025 14:27:06 03/17/20 25 03/17/2025 CBC W/DIF F MCHC 34.8 g/dL 32.0-3 5.5 Not Available [facility] (Lab) [address] [facility], [place], [address], 03/21/2025 14:27:06 03/17/20 25 03/17/2025 CBC W/DIF F RDW 13.3 % 11.0-1 5.0 Not Available [facility] (Lab) [address] [facility], [place], [address], 03/21/2025 14:27:06 03/17/20 25 03/17/2025 CBC W/DIF F plt 235 10'3/ uL 150-40 0 Not Available [facility] (Lab) [address] [facility], [place], [address], 03/21/2025 14:27:06 03/17/20 25 03/17/2025 CBC W/DIF F MPV 10.4 fL 8.8-12 .1 Not Available [facility] (Lab) [address] [facility], [place], [address], 03/21/2025 14:27:06 03/17/20 25 03/17/2025 CBC W/DIF F NRBC's 0.0 % 0.0 Not Available [facility] (Lab) [address] [facility], [place], [address], 03/21/2025 14:27:06 03/17/20 25 03/17/2025 CBC W/DIF F absolute NRBCs 0.0 10'3/ uL no refere nce range establ ished Not Available [facility] (Lab) [address] [facility], [place], [address], 03/21/2025 14:27:06 03/17/20 25 03/17/2025 CBC W/DIF F neutrophils 72.4 % 34.0-7 3.0 Not Available [facility] (Lab) [address] [facility], [place], [address], 03/21/2025 14:27:06 03/17/20 25 03/17/2025 CBC W/DIF F lymphocytes 14.4 % 15.0-5 0.0 low Not Available [facility] (Lab) [address] [facility], [place], [address], 03/21/2025 14:27:06 03/17/20 25 03/17/2025 CBC W/DIF F monocytes 6.6 % 1.0-15 .0 Not Available [facility] (Lab) [address] [facility], [place], [address], 03/21/2025 14:27:06 03/17/20 25 03/17/2025 CBC W/DIF F eosinophils 5.2 % 0.0-8. 0 Not Available [facility] (Lab) [address] [facility], [place], [address], 03/21/2025 14:27:06 03/17/20 25 03/17/2025 CBC W/DIF F basophils 0.4 % 0.0-2. 0 Not Available [facility] (Lab) [address] [facility], [place], [address], 03/21/2025 14:27:06 03/17/2003/17/2025 CBC W/DIF F immature granulocytes 1.0 % no define d refere nce range Immat ure Granu locyt es (IG) repre sents autom ated enume ratio n of Metam yeloc ytes, Myelo cytes and Promy elocy freda when IG is < 5%. Blast s are not inclu ded in IG and repor jluis separ ately if prese nt. Not Available [facility] (Lab) [address] [facility], [place], [address], 03/21/2025 14:27:06 03/17/20 25 03/17/2025 CBC W/DIF F absolute neutrophils 3.6 10'3/ uL 1.5-8. 0 Not Available [facility] (Lab) [address] [facility], [place], [address], 03/21/2025 14:27:06 03/17/20 25 03/17/2025 CBC W/DIF F absolute lymphocytes 0.7 10'3/ uL 1.0-4. 0 low Not Available [facility] (Lab) [address] [facility], [place], [address], 03/21/2025 14:27:06 03/17/20 25 03/17/2025 CBC W/DIF F absolute monocytes 0.3 10'3/ uL 0.2-1. 0 Not Available [facility] (Lab) [address] [facility], [place], [address], 03/21/2025 14:27:06 03/17/20 25 03/17/2025 CBC W/DIF F absolute eosinophils 0.3 10'3/ uL 0.0-0. 6 Not Available [facility] (Lab) [address] [facility], [place], [address], 03/21/2025 14:27:06 03/17/20 25 03/17/2025 CBC W/DIF F absolute basophils 0.0 10'3/ uL 0.0-0. 3 Not Available [facility] (Lab) [address] [facility], [place], [address], 03/21/2025 14:27:06 03/17/20 25 03/17/2025 CBC W/DIF F absolute immature granulocytes 0.1 10'3/ uL 0.00-0 .10 Refer ence range s for nonbi nary/ inter sex or unspe cifie d gende r patie nts have not been estab lishe d. Pleas e refer to the follo wing table for range s estab lishe d for cisge nder patie nts and evalu ate in the clini smita ronaldo xt of the indiv idual patie nt: https ://alexi grover book. nm.or g/gen derx Not Available [facility] (Lab) [address], [place], [address], 03/21/2025 14:27:06 03/17/2003/17/2025 HIV 1/2 ANTIG EN/AN TIBOD Y, REFLE X CONFI RMATI ON HIV antigen/anti body Nonrea ctive nonrea ctive HIV-1 antig en and HIV-1 /HIV- 2 antib odies were not detec jluis. No labor atory evide nce of HIV infec tion. Not Available [facility] (Lab) [address], [place], [address], 03/21/2025 14:27:06 03/17/2003/17/2025 HEPAT ITIS B SURFA CE ANTIG EN hepatitis B surface antigen Non-re active non-re active This assay was perfo rmed using [facility] [employer] [facility] [employer] ratio n reage nts and test kits. Value s obtai gayla with other assay metho ds or kits canno t be used inter lee eably . Not Available [facility] (Lab) [address], [place], [address], 03/21/2025 14:27:07 03/17/20 25 03/17/2025 HEPAT ITIS C ANTIB ELOISE SCREE N, REFLE X TO CONFI RMATI ON hepatitis C antibody Non-re active non-re active Antib odies to HCV Not Detec jluis, does not exclu de the possi bilit y of expos ure to HCV. Not Available [facility] (Lab) [address], [place], [address], 03/21/2025 14:27:07 03/17/20 25 03/17/2025 RUBEL LA IGG ANTIB ELOISE, QUANT rubella antibodies, IgG Reacti ve reacti ve Not Available [facility] (Lab) [address], [place], [address], 03/21/2025 14:27:08 03/17/20 25 03/17/2025 RUBEL LA IGG ANTIB ELOISE, QUANT rubella antibodies, IgG quant 14.2 IU/mL >=10 Non-r eacti ve (Non- Immun e) <10 IU/mL React reyna (Immu ne) > or = 10 IU/mL Not Available [facility] (Lab) [address] [facility], [place], [address], 03/21/2025 14:27:08 03/17/20 25 03/17/2025 TYPE/ RH/SC REEN ABO/Rh type B POS Not Available [facility] (Lab) [address] [facility], [place], [address], 03/21/2025 14:27:08 03/17/20 25 03/17/2025 TYPE/ RH/SC REEN antibody screen NEG Not Available [facility] (Lab) [address] [facility], [place], [address], 03/21/2025 14:27:08 03/17/20 25 03/17/2025 TYPE/ RH/SC REEN exp date 2024 23:59 Not Available [facility] (Lab) [address] [facility], [place], [address], 03/21/2025 14:27:08 03/17/20 25 03/17/2025 HEMOG LOBIN A1C hemoglobin A1C 4.5 % 4.0-5. 6 The Ameri can Diabe freda [employer] iatio n recom mends that a prima ry goal of thera bairon waldrop d be a HBA1C of < 7% and that physi cians shoul d reeva luate the treat ment regim en in patie nts with HBA1C value s consi stent ly > 8%. <5.7% Evie l 5.7 - 6.4% Incre ased risk for diabe freda >=6.5 % Diagn ostic of diabe freda <7.0% Goal of thera py >8.0% Actio n sugge sted Not Available [facility] (Lab) [address] [facility], [place], [address], 03/21/2025 14:27:09 03/17/20 25 03/17/2025 RPR SCREE N, REFLE X TITER /CONF IRMAT ION RPR qualitative Reacti ve nonrea ctive abnormal A react reyna RPR resul t alone does not confi rm the prese nce of anti- Trepo nemal antib odies and shoul d be inter prete d with cauti on. This sampl e will be sent to a refer ence rosana nash for Trepo nema palli dum Parti marcelo Agglu tinat ion (TP-P A) testi ng. Not Available [facility] (Lab) [address] [facility], [place], [address], 03/21/2025 14:27:09 03/17/20 25 03/17/2025 RPR SCREE N, REFLE X TITER /CONF IRMAT ION RPR titer 1:8 . none high Not Available [facility] (Lab) [address] [facility], [place], [address], 03/21/2025 14:27:09 03/17/20 25 03/17/2025 SYPHI LIS [...] and resul ts, see: https ://ganesh sena Baifendian iclab sCookBritecom / it-mm files /Syph ilis_ Serol ogy_A lgori thm.p df ----- ----- ----- ----A DDITI ONAL INFOR SHAJI N---- ----- ----- ----- This test is inten ded to be used as a confi rmato ry test on sampl es that have been teste d by [employer] [facility] syphi lis test. Test Perfo rmed by: [facility] [place] [address], [place] [address] Lab Direc tor: Jay Manzano nn Ph.D. ; CLIA# [id number] Not Available [facility] (Lab) [address] [facility], [place], [address], 03/21/2025 14:27:10 03/29/2003/29/2025 CT/GC AND TRICH OMONA S VAGIN SILVA (RRNA ), URINE chlamydia trachomatis, PCR Negati ve negati ve Not Available [facility] (Lab) [address] [facility], [place], [address], 03/30/2025 14:21:33 03/29/20 25 03/29/2025 CT/GC AND TRICH OMONA S VAGIN SILVA (RRNA ), URINE neisseria gonorrhoeae, PCR Negati ve negati ve Not Available [facility] (Lab) [address] [facility], [place], [address], 03/30/2025 14:21:33 03/29/20 25 03/29/2025 CT/GC AND TRICH OMONA S VAGIN SILVA (RRNA ), URINE trichomonas vaginalis ribosomal RNA (rrna) Negati ve negati ve Not Available [facility] (Lab) [address] [facility], [place], [address], 03/30/2025 14:21:33 04/20/20 25 04/20/2025 HEMAT OCRIT (HCT) HCT 29.1 % (based on docume nted legal sex) 34.0-4 5.0 low Not Available [facility] (Lab) [address] [facility], [place], [address], 04/23/2025 15:25:44 04/20/20 25 04/20/2025 HEMOG LOBIN (HGB) HGB 9.3 g/dL (based on docume nted legal sex) 11.6-1 5.4 low Not Available [facility] (Lab) [address] [facility], [place], [address], 04/23/2025 15:25:45 04/20/2004/20/2025 HIV 1/2 ANTIG EN/AN TIBOD Y, REFLE X CONFI RMATI ON HIV antigen/anti body Nonrea ctive nonrea ctive HIV-1 antig en and HIV-1 /HIV- 2 antib odies were not detec jluis. No labor atory evide nce of HIV infec tion. Not Available [facility] (Lab) [address] [facility], [place], [address], 04/23/2025 15:25:45 04/20/20 25 04/20/2025 RPR SCREE [...] ion (TP-P A) testi ng. Not Available [facility] (Lab) [address] [facility], [place], [address], 04/23/2025 15:25:46 04/20/20 25 04/20/2025 RPR SCREE N, REFLE X TITER /CONF IRMAT ION RPR titer 1:8 . none high Not Available [facility] (Lab) [address] [place], [address], 04/23/2025 15:25:46 04/20/20 25 04/20/2025 SYPHI LIS [...] ated syphi lis. For addit ional infor matsuellen n on inter preta tion of the syphi lis rever se algor ithm and resul ts, see: https ://ganesh sena [employer] / it-mm files /Syph ilis_ Serol ogy_A lgori thm.p df ----- ----- ----- ----A DDITI ONAL INFOR MATSUELLEN N---- ----- ----- ----- This test is inten ded to be used as a confi rmato ry test on sampl es that have been teste d by [employer] [employer] [facility] syphi lis test. Test Perfo rmed by: [facility] [place] [address] [facility] [place] [address] Lab Direc tor: Jay Manzano nn Ph.D. ; CLIA# [id number] Not Available [facility] (Lab) [address] [facility], [place], [address], 04/23/2025 15:25:46 03/17/2003/17/2025 US, obste tric, 2nd or 3rd trime ster No observ ation record ed. [email or web address] [address], [place], [address], 03/17/2025 15:45:06 03/17/20 25 03/17/2025 US, obste tric, 2nd or 3rd trime ster No observ ation record ed. [email or web address] [place] [address], [place], [address], 03/17/2025 12:51:02 03/17/20 25 03/17/2025 US, obste tric, 2nd or 3rd trime ster No observ ation record ed. [email or web address] St[address] [facility] [address] [address], [place], [address], 04/07/2025 21:57:11 03/17/20 25 03/17/2025 US, obste tric, 2nd or 3rd trime ster No observ ation record ed. Staci [address] [facility] [address], [place], [address], 03/17/2025 23:04:51 03/17/20 25 03/17/2025 US, obste tric, 2nd or 3rd trime ster No observ ation record ed. [email or web address] [facility] [address], [place], [address], 03/17/2025 15:45:46 03/17/20 25 03/17/2025 US, obste tric, 2nd or 3rd trime ster No observ ation record ed. [email or web address] [facility] [address], [place], [address], 03/18/2025 17:16:02 05/18/20 25 05/18/2025 US, obste tric, follo w-up No observ ation record ed. [email or web address] [place] [address], [place], [address], 05/18/2025 18:23:17 05/18/20 25 05/18/2025 US, obste tric, follo w-up No observ ation record ed. [email or web address] [facility] [address], [place], [address], 05/20/2025 13:20:22 05/25/2005/25/2025 US, obste tric, bioph ysica l profi le + non-s tress test No observ ation record ed. [email or web address] [place] [address], [place], [address], 05/25/2025 17:34:34 05/25/2005/25/2025 US, obste tric, follo w-up No observ ation record ed. [email or web address] [facility] [address], [place], [address], 05/26/2025 14:44:53 05/25/2005/25/2025 non-s tress test No observ ation record ed. [email or web address] [place] [address], [place], [address], 05/25/2025 18:39:52 05/25/20 non-s tress test No observ ation record ed. [place] [address], [place], [address], 05/25/2025 17:32:07 05/30/2005/30/2025 US, obste tric, bioph ysica l profi le + non-s tress test No observ ation record ed. [email or web address] [place] [address], [place], [address], 05/30/2025 12:42:17 05/30/2005/30/2025 US, obste tric, bioph ysica l profi le + non-s tress test No observ ation record ed. [email or web address] [facility] [address], [place], [address], 05/30/2025 17:35:43 05/30/2005/30/2025 non-s tress test No observ ation record ed. [email or web address] [place] [address], [place], [address], 05/30/2025 13:00:42 05/30/20 non-s tress test No observ ation record ed. [email or web address] [place] [address], [place], [address], 05/30/2025 13:02:59 06/06/2006/06/2025 US, obste tric, bioph ysica l profi le + non-s tress test No observ ation record ed. [email or web address] [place] [address], [place], [address], 06/06/2025 14:28:11 06/06/2006/06/2025 US, obste tric, bioph ysica l profi le + non-s tress test No observ ation record ed. [email or web address] [address], [place], [address], 06/06/2025 15:10:23 06/07/2006/07/2025 non-s tress test No observ ation record ed. [email or web address] [place] [address], [place], [address], 2025 20:27:42 06/07/20 non-s tress test No observ ation record ed. [email or web address] Not Available 2024 15:33:58 06/13/2006/13/2025 US, obste tric, follo w-up No observ ation record ed. [email or web address] [facility] [address], [place], [address], 06/14/2025 10:34:08 06/13/20 25 06/13/2025 non-s tress test No observ ation record ed. [email or web address] [place] [address], [place], [address], 06/19/2025 18:04:34 06/13/20 non-s tress test No observ ation record ed. [email or web address] [place] [address], [place], [address], 06/13/2025 18:04:44 06/13/2006/14/2025 US, obstjesús tric, follo w-up No observ ation record ed. [facility] [address], [place], [address], 06/14/2025 13:38:03 06/13/2006/14/2025 US, obstjesús tric, bioph ysica l profi le + non-s tress test No observ ation record ed. [facility] [address], [place], [address], 06/14/2025 13:38:17 06/15/2006/07/2025 non-s tress test No observ ation record ed. [facility] [address], [place], [address], 06/17/2025 09:42:27 06/20/2006/20/2025 US, lucretia dimas, bioph ysica l profi le + non-s tress test No observ ation record ed. [email or web address] [place] [address], [place], [address], 06/20/2025 13:28:54 06/20/2006/20/2025 US, obste tric, follo w-up No observ ation record ed. [email or web address] [facility] [address] [place] [address] [address], [place], [address], 06/20/2025 16:32:26 06/20/20 25 06/20/2025 non-s tress test No observ ation record ed. [email or web address] [place] [address], [place], [address], 06/20/2025 18:00:22 06/20/20 25 non-s tress test No observ ation record ed. [address], [place], [address], 06/20/2025 17:57:42 06/27/20 25 06/27/2025 US, obste tric, bioph ysica l profi le No observ ation record ed. [email or web address] [facility] [address], [place], [address], 06/28/2025 11:16:29 06/27/20 25 06/27/2025 US, obste tric, bioph ysica l profi le + non-s tress test No observ ation record ed. [facility] [address], [place], [address], 06/27/2025 18:49:37 06/27/20 25 06/27/2025 non-s tress test No observ ation record ed. [facility] [address], [place], [address], 06/27/2025 18:50:27 06/27/20 25 non-s tress test No observ ation record ed. [address], [place], [address], 06/27/2025 12:29:10 Result Notes None recorded. Problems Name Problem SNOMED Code Status Onset Date Resolution Date Notes Provider Name and Address Organization Details Recorded Time Anemia 497745778 Completed Trino serrano, [facility] 13:00:34 Pre-ecla mpsia 736712870 Completed 37w Delivery , 2x/wk antenata l testing Trino Moulton [facility] 4 13:00:34 Group B Streptoc occus carrier 4538228088 103 Completed AMP in labor Trino Moulton [facility] 4 13:00:33 Pregnanc y 24923520 Completed 202210/27/2023 Jazz Somers [facility] 5 12:31:25 Syphilis 13503123 Completed 2022 no s/s, +fta abs- tx schedule d 06/05,, 2 Trino Moulton [facility] 4 13:00:34 Infectio n by Trichomo gwen [id number] Completed 2022 2/2 positive - tinidazo le tx 2/5 - [facility] 4 13:00:34 Gonorrhe a 88848864 Completed 2022 PA sent 08/20 for Ceftriax one - [facility] 4 13:00:34 Pregnanc y 13528888 Active 2024 Jazz Somers [facility] 5 12:31:25 Past pregnanc y history of pre-ecla mpsia 1375504840 17560 Active 2024 recommen ded ASA previous delivery PTL 36w6d 10/08/23 EDC 10/30/23 antenata l testing Juana Warner [facility] 5 11:26:48 History of syphilis 9036909519 021558 Active 2024 treated in previous pregnanc y titers 05/2023 1:32 decrease d to 1:8 03/17 Juana Warner null, [facility] 5 11:51:07 History of chlamydi al infectio n 105861759 Active 2024 Isidro Le MD [address], [place], [address], [facility] 5 12:53:43 Iron deficien cy anemia 14153011 Active 2024 hgg decrease d 731 to 9-3 Iron infusion order faxed 05/04 _ pending insuranc e) Juaan Timmy serrano, [facility] 5 11:03:51 Finding of arrangem ent of fetus 24609373 Active 2024 Transver se Isidro Le MD [address], [place], [address], [facility] 5 17:33:30 Problem Notes None recorded. Medical Equipment [...] Available Not Available Vitals Date Recorded Body weight Body mass index (BMI) Body height Systolic And Diastolic Provider Name and Address Organization Details Last Updated DateTime 04/20/2025 27804.785 21 g 22.1 kg/m2 165.1 cm 102/65 mm[Hg] Jazz Somers [facility] 04/20/2025 14:39:33 Social History Question Answer Notes LastModified by Organizat ion Details LastModified Time Tobacco Smoking Status Never Smoker Jacqueline Eunice serrano, [facility] 03/07/2023 14:21:17 Are You Blind Or Do You Have Difficulty Seeing? No [email or web address] Information n ot available 10/01/2023 What Is Your Level Of Caffeine Consumption? Occasional [email or web address] Information not available 10/01/2023 How Much Tobacco Do You Chew? None [email or web address] Information not available 10/01/2023 In The 14 Days Before Symptom Onset, Have You Had Close Contact With A Laboratory-confirm ed COVID-19 While That Case Was Ill? No [email or web address] Information n ot available 10/01/2023 In The 14 Days Before Symptom Onset, Have You Had Close Contact With A Person Who Is Under Investigation For COVID-19 While That Person Was Ill? No [email or web address] Information not available 10/01/2023 Have You Been To An Area Known To Be High Risk For COVID-19? No [email or web address] Information not available 10/01/2023 Are You Deaf Or Do You Have Serious Difficulty Hearing? No [email or web address] Information not available 10/01/2023 What Type Of Diet Are You Following? REGULAR [email or web address] Information n ot available 10/01/2023 What Is The Highest Grade Or Level Of School You Have Completed Or The Highest Degree You Have Received? BH01043-5 [email or web address] Information not available 10/01/2023 Are There Any Guns Present In Your Home? No [email or web address] Information not available 10/01/2023 Do You Use Protection During Sex? Usually [email or web address] Information not available 10/01/2023 Do You Use Your Seat Belt Or Car Seat Routinely? Yes [email or web address] Information not available 10/01/2023 Do You Have Smoke And Carbon Monoxide Detectors In Your Home? No [email or web address] Information not available 10/01/2023 How Much Tobacco Do You Smoke? No [email or web address] Information not available 10/01/2023 Do You Use Sunscreen Routinely? No [email or web address] Information not available 10/01/2023 Have You Used IV Drugs? No Information not available 10/01/2023 Do You Have Difficulty Walking Or Climbing Stairs? No [email or web address] Information not available 10/01/2023 Sex: Unknown Functional Status Question Answer Note LastModified by Organizat ion Details LastModified Time Do you use any illicit or recreational drugs? No Information not available 10/01/2023 What is your level of alcohol consumption? None [email or web address] Information not available 10/01/2023 Are you able to walk independently without assistance or assistive devices? YESWOREST [email or web address] Information not available 10/01/2023 Are you able to care for yourself independently? Yes [email or web address] Information not available 10/01/2023 Do you have difficulty dressing, bathing, grooming, or toileting? No [email or web address] Information not available 10/01/2023 What is your exercise level? Moderate [email or web address] Information not available 10/01/2023 Mental Status Question Answer Note LastModified by Organization D etails LastModified Time Do you feel stressed (tense, restless, nervous, or anxious, or unable to sleep at night)? [id number] [email or web address] Information not available 10/01/2023 Family History Relationship Description Onset Age of this Age Resolved Age Notes LastModified by Organization Details LastModified Time Father No current problems or disability [email or web address] Not available 12/10 15:37:19 Mother No current problems or disability [email or web address] Not available 12/10 15:37:19 Medical History Condition Response Allergies (Food, seasonal, environmental ) N Other N Drug/Latex Allergies/Reactions N Breast Cancer N Blood Transfusion N Dermatologic Disorders N Lung Disease N [...] ICD10 Code Diagnosis IMO Codes Diagnosis Note [id number] Isidro Le MD [place] [address] [address] 03/29/2025 10:42:45 03/29/2025 12:17:53 care status [id number] Z34.82 [id number] Isidro Le MD [place] [address] [address] 04/20/2025 14:14:57 04/20/2025 15:23:54 care status [id number] Z34.83 [id number] Health Concerns Section Related Observation LastModified by Organization Detai ls LastModified Time None Recorded Concern Status LastModified by Organization Details LastModified Time None Recorded Payers Encounter Date Sequence Insurance Name Policy Number Policy Vital Covered Member ID Vital Member ID Guarantor Name 04/20/2025 1 [facility] (MEDICAID HMO) [id number] Gisela Bates [id number] Gisela Bates Notes Date Note Type Note Provider Name and Address Organization Details Recorded Time 04/20/2025 text/html Generic HPI TemplateReported by Patient Isidro Le MD [address], [place], [address], [facility] 04/20/2025 15:22:28 OBGyn Episode Ob Episode Information Episode Created Date Number of Fetuses Patient Bloodtype Patient rh Status Prepregnancy Weight lbs Domestic Partner Domestic Partner Phone Father Name Convict Guard Status 03/17/20 25 1 B Positive OPEN Fetus Data First Name Last Name Admitted to NICU Weight (g) Sex Living Outcome Pediatric Complications Fetus ID Race Codes Race Delivery Type [id number] Problems Problem Notes + RPR tx spoke [...] , fax all labs to health dept [phone] . 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 for OB visit 03/29 HARRIS Nazario 03/31 pt denies sx's JGBilateral double renal artery Problem Name Start Date End Date Resolution Snomed Code Not e History of syphilis 03/17/2025 [id number] treated in previous pregnancytiters 05/2023 1:32 decreased to 1:8 03/17 Iron deficiency anemia 05/04/2025 [id number] hgg decreased to 9-3 Iron infusion order faxed 05/04 _ pending insurance) History of chlamydial infection 03/17/2025 [id number] Past history of pre-eclampsia 03/17/2025 [id number] recommended ASAprevious delivery PTL 36w6d 10/08/23 EDC 10/30/23 testing Finding of arrangement of fetus 06/13/2025 [id number] Transverse Jerome Calculation Initial Jerome Date Initial [...] Weight in lbs Pre/Post Dialysis Refused Weight 131.946215864365 BP Diastolic BP Location Tested BP Systolic [...] Weight in lbs Pre/Post Dialysis Refused Weight 131.461536234249 BP Diastolic BP Location Tested BP Systolic [...] Type Weight in lbs Pre/Post Dialysis Refused 133.002442021645 BP Diastolic BP Location Tested BP Systolic [...] Type Weight in lbs Pre/Post Dialysis Refused 135.43006333485 BP Diastolic BP Location Tested BP Systolic [...] Type Weight in lbs Pre/Post Dialysis Refused 135.78459945264 BP Diastolic BP Location Tested BP Systolic [...] Weight in lbs Pre/Post Dialysis Refused Weight 139.69895109855 BP Diastolic BP Location Tested BP Systolic BP Type 76 L arm 112 sitting Fetus Heart Rate Present Fetus Movement A Yes Comments Flowsheet Date 05/25/2025 Solorzano Score Blood Edema Fundus Height Fundus Units Glucose Ketones Leukocytes Nitrite Labor Signs Protein Cervic Dilation Cervic Effacement Cervic Station Type Weight in lbs Pre/Post Dialysis Refused Weight 149.60477206555 BP Diastolic BP Location Tested BP Systolic [...] Weight in lbs Pre/Post Dialysis Refused Weight 138.058132320509 BP Diastolic BP Location Tested BP Systolic BP Type 78 L arm 120 sitting Fetus Heart Rate Present A 139 Fetus Movement A Yes Comments was at [place] yesterday wi th ruiz and back pain [...] Type Weight in lbs Pre/Post Dialysis Refused 139.304554247729 BP Diastolic BP Location Tested BP Systolic BP Type 74 L arm 119 sitting Fetus Heart Rate Present Fetus Movement A Yes Comments Flowsheet Date 05/30/2025 Solorzano Score Blood Edema Fundus Height Fundus Units Glucose Ketones Leukocytes Nitrite Labor Signs Protein Cervic Dilation Cervic Effacement Cervic Station Type Weight in lbs Pre/Post Dialysis Refused 139.100639170964 BP Diastolic BP Location Tested BP Systolic [...] Type Weight in lbs Pre/Post Dialysis Refused 142.355397856933 BP Diastolic BP Location Tested BP Systolic [...] Type Weight in lbs Pre/Post Dialysis Refused 144.477916792293 BP Diastolic BP Location Tested BP Systolic BP Type 65 L arm 98 sitting Fetus Heart Rate Present Fetus Movement A Yes Comments Flowsheet Date 06/13/2025 Solorzano Score Blood Edema Fundus Height Fundus Units Glucose Ketones Leukocytes Nitrite Labor Signs Protein Cervic Dilation Cervic Effacement Cervic Station Type Weight in lbs Pre/Post Dialysis Refused 144.143352153905 BP Diastolic BP Location Tested BP Systolic [...] Weight in lbs Pre/Post Dialysis Refused Weight 144.56205521919 BP Diastolic BP Location Tested BP Systolic BP Type 64 L arm 104 sitting Fetus Heart Rate Present Fetus Movement A Yes Comments Flowsheet Date 06/20/2025 Solorzano Score Blood Edema Fundus Height Fundus Units Glucose Ketones Leukocytes Nitrite Labor Signs Protein Cervic Dilation Cervic Effacement Cervic Station Type Weight in lbs Pre/Post Dialysis Refused 144.538595498530 BP Diastolic BP Location Tested BP Systolic [...] Type Weight in lbs Pre/Post Dialysis Refused 147.892485243800 BP Diastolic BP Location Tested BP Systolic BP Type 70 L arm 104 sitting Fetus Heart Rate Present Fetus Movement A Yes Comments Flowsheet Date 06/27/2025 Solorzano Score Blood Edema Fundus Height Fundus Units Glucose Ketones Leukocytes Nitrite Labor Signs Protein Cervic Dilation Cervic Effacement Cervic Station Type Weight in lbs Pre/Post Dialysis Refused 147.228508616071 BP Diastolic BP Location Tested BP Systolic [...]
--- OUTSIDE RECORDS SUMMARY | 2025-07-01 06:18 | XMS_ITS | Continuity of Care Document ---
Author Organization [facility], [facility] Address [address] [place] [address] [address] Assessment No assessment recorded. Plan of Treatment [...] recorde d. Surgeries None recorde d. Imaging non-str ess test 2024 025 [email or web address] [address], [address], [place], [address], 05/30/2025 13:02:53 Medication Orders None recorde d. Patient TargetsNo [...] Final resul t Abnor mal: No Resul ting Lab: [facility] [address] [facility] [address] [facility] [address] Tel: CULTU RE ----- ----- ----- --- No growt h in 1 day (dete ction level of 10,00 0 colon ies / ml.) Not Available [facility] (Lab) [address] [facility], [place], [address], 03/19/2025 07:23:20 03/17/20 25 03/17/2025 CBC W/DIF F WBC 5.0 10'3/ uL 3.5-10 .5 Not Available [facility] (Lab) [address] [facility], [place], [address], 03/21/2025 14:27:06 03/17/20 25 03/17/2025 CBC W/DIF F RBC 3.57 10'6/ uL (based on docume nted legal sex) 3.80-5 .20 low Not Available [facility] (Lab) [address] [facility], [place], [address], 03/21/2025 14:27:06 03/17/20 25 03/17/2025 CBC W/DIF F HGB 10.5 g/dL (based on docume nted legal sex) 11.6-1 5.4 low Not Available [facility] (Lab) [address] [facility], [place], [address], 03/21/2025 14:27:06 03/17/20 25 03/17/2025 CBC W/DIF F HCT 30.2 % (based on docume nted legal sex) 34.0-4 5.0 low Not Available [facility] (Lab) [address] [facility], [place], [address], 03/21/2025 14:27:06 03/17/20 25 03/17/2025 CBC W/DIF F MCV 84.6 fL 80.0-9 9.0 Not Available [facility] (Lab) [address] [facility], [place], [address], 03/21/2025 14:27:06 03/17/20 25 03/17/2025 CBC W/DIF F MCH 29.4 pg 27.0-3 4.0 Not Available [facility] (Lab) [address] [facility], [place], [address], 03/21/2025 14:27:06 03/17/20 25 03/17/2025 CBC W/DIF F MCHC 34.8 g/dL 32.0-3 5.5 Not Available [facility] (Lab) [address] [facility], [place], [address], 03/21/2025 14:27:06 03/17/20 25 03/17/2025 CBC W/DIF F RDW 13.3 % 11.0-1 5.0 Not Available [facility] (Lab) [address] [facility], [place], [address], 03/21/2025 14:27:06 03/17/20 25 03/17/2025 CBC W/DIF F plt 235 10'3/ uL 150-40 0 Not Available [facility] (Lab) [address] [facility], [place], [address], 03/21/2025 14:27:06 03/17/20 25 03/17/2025 CBC W/DIF F MPV 10.4 fL 8.8-12 .1 Not Available [facility] (Lab) [address] [facility], [place], [address], 03/21/2025 14:27:06 03/17/20 25 03/17/2025 CBC W/DIF F NRBC's 0.0 % 0.0 Not Available [facility] (Lab) [address] [facility], [place], [address], 03/21/2025 14:27:06 03/17/20 25 03/17/2025 CBC W/DIF F absolute NRBCs 0.0 10'3/ uL no refere nce range establ ished Not Available [facility] (Lab) [address] [facility], [place], [address], 03/21/2025 14:27:06 03/17/20 25 03/17/2025 CBC W/DIF F neutrophils 72.4 % 34.0-7 3.0 Not Available [facility] (Lab) [address] [place], [address], 03/21/2025 14:27:06 03/17/20 25 03/17/2025 CBC W/DIF F lymphocytes 14.4 % 15.0-5 0.0 low Not Available [facility] (Lab) [address] [facility], [place], [address], 03/21/2025 14:27:06 03/17/20 25 03/17/2025 CBC W/DIF F monocytes 6.6 % 1.0-15 .0 Not Available [facility] (Lab) [address] [facility], [place], [address], 03/21/2025 14:27:06 03/17/20 25 03/17/2025 CBC W/DIF F eosinophils 5.2 % 0.0-8. 0 Not Available [facility] (Lab) [address] [place], [address], 03/21/2025 14:27:06 03/17/20 25 03/17/2025 CBC W/DIF F basophils 0.4 % 0.0-2. 0 Not Available [facility] (Lab) [address] [place], [address], 03/21/2025 14:27:06 03/17/20 25 03/17/2025 CBC W/DIF [...] separ ately if prese nt. Not Available [facility] (Lab) [address] [facility], [place], [address], 03/21/2025 14:27:06 03/17/20 25 03/17/2025 CBC W/DIF F absolute neutrophils 3.6 10'3/ uL 1.5-8. 0 Not Available [facility] (Lab) [address] [facility], [place], [address], 03/21/2025 14:27:06 03/17/20 25 03/17/2025 CBC W/DIF F absolute lymphocytes 0.7 10'3/ uL 1.0-4. 0 low Not Available [facility] (Lab) [address] [facility], [place], [address], 03/21/2025 14:27:06 03/17/20 25 03/17/2025 CBC W/DIF F absolute monocytes 0.3 10'3/ uL 0.2-1. 0 Not Available [facility] (Lab) [address] [facility], [place], [address], 03/21/2025 14:27:06 03/17/20 25 03/17/2025 CBC W/DIF F absolute eosinophils 0.3 10'3/ uL 0.0-0. 6 Not Available [facility] (Lab) [address] [facility], [place], [address], 03/21/2025 14:27:06 03/17/20 25 03/17/2025 CBC W/DIF F absolute basophils 0.0 10'3/ uL 0.0-0. 3 Not Available [facility] (Lab) [address] [facility], [place], [address], 03/21/2025 14:27:06 03/17/20 25 03/17/2025 CBC W/DIF F absolute immature granulocytes 0.1 10'3/ uL 0.00-0 .10 Refer ence range s for nonbi nary/ inter sex or unspe cifie d gende r patie nts have not been estab lishe d. Ivet e refer to the omar wing table for range s estab lishe d for cisge nder patie nts and evalu ate in the clini smita ronaldo xt of the indiv idual patie nt: https ://la bhand book. nm.or g/gen derx Not Available [facility] (Lab) [address], [place], [address], 03/21/2025 14:27:06 03/17/20 25 03/17/2025 HIV 1/2 ANTIG EN/AN TIBOD Y, REFLE X CONFI RMATI ON HIV antigen/anti body Nonrea ctive nonrea ctive HIV-1 antig en and HIV-1 /HIV- 2 antib odies were not detec jluis. No labor atory evide nce of HIV infec tion. Not Available [facility] (Lab) [address], [place], [address], 03/21/2025 14:27:06 03/17/20 25 03/17/2025 HEPAT ITIS B SURFA CE ANTIG EN hepatitis B surface antigen Non-re active non-re active This assay was perfo rmed using [facility] [employer] ratio n reage nts and test kits. Value s obtai gayla with other assay metho ds or kits canno t be used inter lee eably . Not Available [facility] (Lab) [address], [place], [address], 03/21/2025 14:27:07 03/17/20 25 03/17/2025 HEPAT ITIS C ANTIB ELOISE SCREE N, REFLE X TO CONFI RMATI ON hepatitis C antibody Non-re active non-re active Antib odies to HCV Not Detec jluis, does not exclu de the possi bilit y of expos ure to HCV. Not Available [facility] (Lab) [address] [place], [address], 03/21/2025 14:27:07 03/17/20 25 03/17/2025 RUBEL LA IGG ANTIB ELOISE, QUANT rubella antibodies, IgG Reacti ve reacti ve Not Available [facility] (Lab) [address] [facility], [place], [address], 03/21/2025 14:27:08 03/17/20 25 03/17/2025 RUBEL LA IGG ANTIB ELOISE, QUANT rubella antibodies, IgG quant 14.2 IU/mL >=10 Non-r eacti ve (Non- Immun e) <10 IU/mL React reyna (Immu ne) > or = 10 IU/mL Not Available [facility] (Lab) [address] [facility], [place], [address], 03/21/2025 14:27:08 03/17/20 25 03/17/2025 TYPE/ RH/SC REEN ABO/Rh type B POS Not Available [facility] (Lab) [address] [facility], [place], [address], 03/21/2025 14:27:08 03/17/20 25 03/17/2025 TYPE/ RH/SC REEN antibody screen NEG Not Available [facility] (Lab) [address] [facility], [place], [address], 03/21/2025 14:27:08 03/17/20 25 03/17/2025 TYPE/ RH/SC REEN exp date 2024 23:59 Not Available [facility] (Lab) [address] [facility], [place], [address], 03/21/2025 14:27:08 03/17/20 25 03/17/2025 HEMOG LOBIN [...] >8.0% Actio n sugge sted Not Available [facility] (Lab) [address] [place], [address], 03/21/2025 14:27:09 03/17/20 25 03/17/2025 RPR SCREE [...] ion (TP-P A) testi ng. Not Available [facility] (Lab) [address] [facility], [place], [address], 03/21/2025 14:27:09 03/17/20 25 03/17/2025 RPR SCREE N, REFLE X TITER /CONF IRMAT ION RPR titer 1:8 . none high Not Available [facility] (Lab) [address] [facility], [place], [address], 03/21/2025 14:27:09 03/17/20 25 03/17/2025 SYPHI LIS [...] of the [facility]phi lis rever [facility] and [facility], see: https :[email or web address] [email or web address] AdoTube / it-mm files /Syph ilis_ Serol ogy_A lgori thm.p df ----- ----- ----- ----A DDITI ONAL INFOR MATNOHEMY N---- ----- ----- ----- This test is inten ded to be used as a confi rmato ry test on sampl es that have been teste d by [facility] syphi lis test. Test Perfo rmed by: [facility] [place] [address], [place] [address] Lab Direc tor: Jay Manzano nn Ph.D. ; CLIA# [id number] Not Available [facility] (Lab) [address] [facility], [place], [address], 03/21/2025 14:27:10 03/29/2003/29/2025 CT/GC AND TRICH OMONA S VAGIN SILVA (RRNA ), URINE chlamydia trachomatis, PCR Negati ve negati ve Not Available [facility] (Lab) [address] [place], [address], 03/30/2025 14:21:33 03/29/20 25 03/29/2025 CT/GC AND TRICH OMONA S VAGIN SILVA (RRNA ), URINE neisseria gonorrhoeae, PCR Negati ve negati ve Not Available [facility] (Lab) [address] [facility], [place], [address], 03/30/2025 14:21:33 03/29/20 25 03/29/2025 CT/GC AND TRICH OMONA S VAGIN SILVA (RRNA ), URINE trichomonas vaginalis ribosomal RNA (rrna) Negati ve negati ve Not Available [facility] (Lab) [address] [place], [address], 03/30/2025 14:21:33 04/20/20 25 04/20/2025 HEMAT OCRIT (HCT) HCT 29.1 % (based on docume nted legal sex) 34.0-4 5.0 low Not Available [facility] (Lab) [address] [facility], [place], [address], 04/23/2025 15:25:44 04/20/20 25 04/20/2025 HEMOG LOBIN (HGB) HGB 9.3 g/dL (based on docume nted legal sex) 11.6-1 5.4 low Not Available [facility] (Lab) [address] [facility], [place], [address], 04/23/2025 15:25:45 04/20/20 25 04/20/2025 HIV 1/2 ANTIG EN/AN TIBOD Y, REFLE X CONFI RMATI ON HIV antigen/anti body Nonrea ctive nonrea ctive HIV-1 antig en and HIV-1 /HIV- 2 antib odies were not detec jluis. No labor atory evide nce of HIV infec tion. Not Available [facility] (Lab) [address] [facility], [place], [address], 04/23/2025 15:25:45 04/20/20 25 04/20/2025 RPR SCREE [...] ion (TP-P A) testi ng. Not Available [facility] (Lab) [address] [facility], [place], [address], 04/23/2025 15:25:46 04/20/20 25 04/20/2025 RPR SCREE N, REFLE X TITER /CONF IRMAT ION RPR titer 1:8 . none high Not Available [facility] (Lab) [address], [place], [address], 04/23/2025 15:25:46 04/20/20 25 04/20/2025 SYPHI LIS [...] syphi lis. For addit ional infor vanna quiroz on inter preta tion of the syphi lis rever [facility], see: https ://ganesh sena AdoTube / it-mm files /Syph ilis_ Serol ogy_A lgori m.p df ----- ----- ----- ----A DDITI ONAL INFOR VANNA N---- ----- ----- ----- This test is inten ded to be used as a confi rmato ry test on sampl es that have been teste d by [facility] syphi lis test. Test Perfo rmed by: [facility] [place] [address] , [place] [address] Lab Direc tor: Jay Manzano nn Ph.D. ; CLIA# [id number] Not Available [facility] (Lab) [address], [place], [address], 04/23/2025 15:25:46 05/27/20 25 05/27/2025 PROTE IN/CR EATIN INE RATIO , URINE creatinine, urine 123.0 mg/dL R-No refer ence range estab lishe d for this assay Not Available [facility] (Lab) [address] [facility], [place], [address], 05/28/2025 10:30:45 05/27/20 25 05/27/2025 PROTE IN/CR EATIN INE RATIO , URINE protein, urine 22 mg/dL R-No refer ence range estab lishe d for this assay Not Available [facility] (Lab) [address] [facility], [place], [address], 05/28/2025 10:30:45 05/27/20 25 05/27/2025 PROTE IN/CR [...] fican t prote inuri a. Not Available [facility] (Lab) [address] [facility], [place], [address], 05/28/2025 10:30:45 03/17/20 25 03/17/2025 US, obste tric, 2nd or 3rd trime ster No observ ation record ed. [email or web address] [address], [place], [address], 03/17/2025 15:45:06 03/17/20 25 03/17/2025 US, obste tric, 2nd or 3rd trime ster No observ ation record ed. [email or web address] [address], [place], [address], 03/17/2025 12:51:02 03/17/20 25 03/17/2025 US, obste tric, 2nd or 3rd trime ster No observ ation record ed. [email or web address] [address], [place], [address], 04/07/2025 21:57:11 03/17/20 25 03/17/2025 US, obste tric, 2nd or 3rd trime ster No observ ation record ed. [email or web address] [address], [place], [address], 03/17/2025 23:04:51 03/17/20 25 03/17/2025 US, obste tric, 2nd or 3rd trime ster No observ ation record ed. [email or web address] [address], [place], [address], 03/17/2025 15:45:46 03/17/20 25 03/17/2025 US, obste tric, 2nd or 3rd trime ster No observ ation record ed. [email or web address] [address], [place], [address], 03/18/2025 17:16:02 05/18/2005/18/2025 , obste tric, follo w-up No observ ation record ed. [facility] [address], [place], [address], 05/18/2025 18:23:17 05/18/2005/18/2025 US, obste tric, follo w-up No observ ation record ed. [email or web address] [address], [place], [address], 05/20/2025 13:20:22 05/25/2005/25/2025 , obste tric, bioph ysica l profi le + non-s tress test No observ ation record ed. [facility] [address], [place], [address], 05/25/2025 17:34:34 05/25/20 25 05/25/2025 US, obste tric, follo w-up No observ ation record ed. [address], [place], [address], 05/26/2025 14:44:53 05/25/2005/25/2025 non-s tress test No observ ation record ed. [email or web address] [address], [place], [address], 05/25/2025 18:39:52 05/25/20 non-s tress test No observ ation record ed. [address], [place], [address], 05/25/2025 17:32:07 05/30/2005/30/2025 US, obste tric, bioph ysica l profi le + non-s tress test No observ ation record ed. [email or web address] [address], [place], [address], 05/30/2025 12:42:17 05/30/2005/30/2025 US, obste tric, bioph ysica l profi le + non-s tress test No observ ation record ed. [email or web address] [address], [place], [address], 05/30/2025 17:35:43 05/30/2005/30/2025 non-s tress test No observ ation record ed. [email or web address] [address], [place], [address], 05/30/2025 13:00:42 05/30/20 non-s tress test No observ ation record ed. [email or web address] [address], [place], [address], 05/30/2025 13:02:59 06/06/2006/06/2025 US, obste tric, bioph ysica l profi le + non-s tress test No observ ation record ed. [email or web address] [address], [place], [address], 06/06/2025 14:28:11 06/06/2006/06/2025 US, lucretia tric, bioph ysica l profi le + non-s tress test No observ ation record ed. [email or web address] [address], [place], [address], 06/06/2025 15:10:23 06/07/2006/07/2025 non-s tress test No observ ation record ed. [email or web address] [address], [place], [address], 2025 20:27:42 06/07/20 non-s tress test No observ ation record ed. [email or web address] Not Available 2024 15:33:58 06/13/2006/13/2025 , obste tric, follo w-up No observ ation record ed. [email or web address] [address], [place], [address], 06/14/2025 10:34:08 06/13/2006/13/2025 non-s tress test No observ ation record ed. PATRICIA [address], [place], [address], 06/19/2025 18:04:34 06/13/20 non-s tress test No observ ation record ed. [email or web address] [address], [place], [address], 06/13/2025 18:04:44 06/13/2006/14/2025 US, obste tric, follo w-up No observ ation record ed. [email or web address] [address], [place], [address], 06/14/2025 13:38:03 06/13/20 25 06/14/2025 US, obste tric, bioph ysica l profi le + non-s tress test No observ ation record ed. [email or web address] [address], [place], [address], 06/14/2025 13:38:17 06/15/20 25 2025 non-s tress test No observ ation record ed. [facility] [address], [place], [address], 06/17/2025 09:42:27 06/20/2006/20/2025 US, obste tric, bioph ysica l profi le + non-s tress test No observ ation record ed. [email or web address] [address], [place], [address], 06/20/2025 13:28:54 06/20/20 25 06/20/2025 US, obste tric, follo w-up No observ ation record ed. [email or web address] [address], [place], [address], 06/20/2025 16:32:26 06/20/20 25 06/20/2025 non-s tress test No observ ation record ed. [email or web address] [address], [place], [address], 06/20/2025 18:00:22 06/20/20 non-s tress test No observ ation record ed. [email or web address] [address], [place], [address], 06/20/2025 17:57:42 06/27/20 25 06/27/2025 US, obste tric, bioph ysica l profi le No observ ation record ed. [email or web address] [address], [place], [address], 06/28/2025 11:16:29 06/27/2006/27/2025 US, obste tric, bioph ysica l profi le + non-s tress test No observ ation record ed. [facility] [address], [place], [address], 06/27/2025 18:49:37 06/27/2006/27/2025 non-s tress test No observ ation record ed. [facility] [address], [place], [address], 06/27/2025 18:50:27 06/27/20 non-s tress test No observ ation record ed. [email or web address] [address], [place], [address], 06/27/2025 12:29:10 Result Notes None recorded. Problems Name Problem SNOMED Code Status Onset Date Resolution Date Notes Provider Name and Address Organization Details Recorded Time Anemia 703964701 Completed Trino serrano, [facility] 4 13:00:34 Pre-ecla mpsia 720491321 Completed 37w Delivery , 2x/wk antenata l testing Trino Moulton [facility] 4 13:00:34 Group B Streptoc occus carrier [id number] 103 Completed AMP in labor Trino serrano [facility] 4 13:00:33 Pregnanc y 14186273 Completed 202210/27/2023 Jazz serrano, [facility] 5 12:31:25 Syphilis 98930881 Completed 2022 no s/s, +fta abs- tx schedule d 06/05,, 2 Trino Moulton [facility] 4 13:00:34 Infectio n by Analia hidalgo [id number] Completed 2022 2/2 positive - tinidazo le tx 2/5 - RONEN in 4wks Trino Moulton [facility] 4 13:00:34 Gonorrhe a 40329790 Completed 2022 PA sent 08/20 for Ceftriax one - RONEN NEGATIVE Trino Moulton [facility] 4 13:00:34 Pregnanc y 09855517 Active 2024 Jazz Yonis [facility] 5 12:31:25 Past pregnanc y history of pre-ecla mpsia 5993890755 41159 Active 2024 recommen ded ASA previous delivery PTL 36w6d 10/08/23 EDC 10/30/23 antenata l testing Juana Warner [facility], [facility] 5 11:26:48 History of syphilis [id number] 551557 Active 2024 treated in previous pregnanc y titers 05/2023 1:32 decrease d to 1:8 03/17 Juana Warner [facility] 5 11:51:07 History of chlamydi al infectio n 774615589 Active 2024 Isidro Le MD [address], [place], [address], [facility] 5 12:53:43 Iron deficien cy anemia 85984015 Active 2024 hgg decrease d 03-17 to 9-3 Iron infusion order faxed 05/04 _ pending insuranc e) Juana Timmy [facility], [facility] 5 11:03:51 Finding of arrangem ent of fetus 49979413 Active 2024 Transver se Isidro Le MD [address], [place], [address], [facility] 17:33:30 Problem Notes None recorded. Medical [...] Available Vitals Date Recorded Body weight Body weight Systolic And Diastolic Systolic And Diastolic Provider Name and Address Organization Details Last Updated DateTime 05/30/2025 28843.339 43 g 90060.339 43 g 119/74 mm[Hg] 119/74 mm[Hg] Jazz Somers [facility] 05/30/2025 12:59:27 Social History Question Answer Notes LastModified by Organizat ion Details LastModified Time Tobacco Smoking Status Never Smoker Jacqueline Dawson maggie, [facility] 03/07/2023 14:21:17 Are You Blind Or Do You Have Difficulty Seeing? No [email or web address] Information n ot available 10/01/2023 What Is Your Level Of Caffeine Consumption? Occasional Information not available 10/01/2023 How Much Tobacco Do You Chew? None [email or web address] Information not available 10/01/2023 In The 14 Days Before Symptom Onset, Have You Had Close Contact With A Laboratory-confirm ed COVID-19 While That Case Was Ill? No [email or web address] Information n ot available 10/01/2023 In The 14 Days Before Symptom Onset, Have You Had Close Contact With A Person Who Is Under Investigation For COVID-19 While That Person Was Ill? No [email or web address] Information not available 10/01/2023 Have You Been To An Area Known To Be High Risk For COVID-19? No [email or web address] Information not available 10/01/2023 Are You Deaf Or Do You Have Serious Difficulty Hearing? No [email or web address] Information not available 10/01/2023 What Type Of Diet Are You Following? REGULAR Information n ot available 10/01/2023 What Is The Highest Grade Or Level Of School You Have Completed Or The Highest Degree You Have Received? [id number] Information not available 10/01/2023 Are There Any Guns Present In Your Home? No [email or web address] Information not available 10/01/2023 Do You Use Protection During Sex? Usually [email or web address] Information not available 10/01/2023 Do You Use Your Seat Belt Or Car Seat Routinely? Yes [email or web address] Information not available 10/01/2023 Do You Have Smoke And Carbon Monoxide Detectors In Your Home? No [email or web address] Information not available 10/01/2023 How Much Tobacco Do You Smoke? No [email or web address] Information not available 10/01/2023 Do You Use Sunscreen Routinely? No [email or web address] Information not available 10/01/2023 Have You Used IV Drugs? No [email or web address] Information not available 10/01/2023 Do You Have Difficulty Walking Or Climbing Stairs? No [email or web address] Information not available 10/01/2023 Sex: Unknown Functional Status Question Answer Note LastModified by Organizat ion Details LastModified Time Do you use any illicit or recreational drugs? No [email or web address] Information not available 10/01/2023 What is your level of alcohol consumption? None [email or web address] Information not available 10/01/2023 Are you able to walk independently without assistance or assistive devices? YESWOREST [email or web address] Information not available 10/01/2023 Are you able to care for yourself independently? Yes Information not available 10/01/2023 Do you have difficulty dressing, bathing, grooming, or toileting? No [email or web address] Information not available 10/01/2023 What is your exercise level? Moderate [email or web address] Information not available 10/01/2023 Mental Status Question Answer Note LastModified by Organization D etails LastModified Time Do you feel stressed (tense, restless, nervous, or anxious, or unable to sleep at night)? [id number] [email or web address] Information not available 10/01/2023 Family History Relationship [...] ICD10 Code Diagnosis IMO Codes Diagnosis Note [id number] Isidro Le MD [facility] [address],[place] [address] 05/05/2025 16:07:26 05/05/2025 17:26:18 care status 515782384 Z34.83 [id number] Isidro Le MD [facility] [address],[facility] [place] [address] 05/18/2025 15:16:07 05/18/2025 15:56:40 care: obstetric risk [id number] O09.293 Z3A.32 8482492 [id number] Isidro Le MD [facility] [address] [place] [address] 05/18/2025 15:17:46 05/18/2025 16:51:15 care status 073208233 Z34.83 [id number] Isidro Le MD [facility] [address],[place] [address] 05/25/2025 15:01:48 05/25/2025 15:34:08 care: obstetric risk 676226692 O09.293 O09.299 Z3A.33 1590203 [id number] Isidro Le MD [facility] [address],[place] [address] 05/25/2025 15:07:02 05/25/2025 17:32:49 Past history of pre-eclampsia [id number] 84046 Z87.59 139071 [id number] Isidro Le MD [facility] [address],[place] [address] 05/25/2025 15:07:21 05/25/2025 17:10:12 care status 904649614 Z34.83 14688942 [id number] Mita Tavera [facility] [address],[place] [address] 05/27/2025 09:25:56 05/27/2025 09:44:43 Backache 684770384 M54.9 [id number] Acute headache 548957788 R51.9 [id number] call this afternoon if no relief will try imitrex [id number] Isidro Le MD [facility] [address],[place] [address] 05/30/2025 11:35:55 05/30/2025 12:10:04 care: obstetric risk 007429192 O09.293 Z3A.34 6641436 [id number] Isidro Le MD [facility] [address],[place] [address] 05/30/2025 11:36:32 05/30/2025 13:02:53 Pre-eclampsia 038989401 O14.90 494998 [id number] Isidro Le MD [facility] [address] [address] 05/30/2025 11:36:55 05/30/2025 13:17:39 care status 345763076 Z34.83 [id number] Health Concerns Section Related Observation LastModified by Organization Detai ls LastModified Time None Recorded Concern Status LastModified by Organization Details LastModified Time None Recorded Payers Encounter Date Sequence Insurance Name Policy Number Policy Vital Covered Member ID Vital Member ID Guarantor Name 05/30/2025 1 MEDICAID-[place]: [facility] [place] [facility] PUBLIC AID Gisela Bates [id number] Gisela Bates Notes Date Note Type Note Provider Name and Address Organization Details Recorded Time 05/30/2025 text/html Generic HPI TemplateReported by Patient Isidro Le MD [address], [place], [address], [facility] 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 RPT labs @ 28wks , fax all labs to health dept [phone] . 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 03/31 pt denies sx's JGBilateral double renal artery Problem Name Start Date End Date Resolution Snomed Code Not e History of syphilis 03/17/2025 [id number] treated in previous pregnancytiters 05/2023 1:32 decreased to 1:8 03/17 Iron deficiency anemia 05/04/2025 61811591 hgg decreased to 9-3 Iron infusion order faxed 05/04 _ pending insurance) History of chlamydial infection 03/17/2025 [id number] Past history of pre-eclampsia 03/17/2025 [id number] recommended ASAprevious delivery PTL 36w6d 10/08/23 EDC 10/30/23 testing Finding of arrangement of fetus 06/13/2025 [id number] Transverse Jerome Calculation Initial Jerome Date Initial [...] Weight in lbs Pre/Post Dialysis Refused Weight 131.786540957616 BP Diastolic BP Location Tested BP Systolic [...] Weight in lbs Pre/Post Dialysis Refused Weight 131.818750541443 BP Diastolic BP Location Tested BP Systolic [...] Type Weight in lbs Pre/Post Dialysis Refused 133.800940436819 BP Diastolic BP Location Tested BP Systolic [...] Type Weight in lbs Pre/Post Dialysis Refused 135.80570055164 BP Diastolic BP Location Tested BP Systolic [...] Type Weight in lbs Pre/Post Dialysis Refused 135.35431447615 BP Diastolic BP Location Tested BP Systolic [...] Weight in lbs Pre/Post Dialysis Refused Weight 139.53232804602 BP Diastolic BP Location Tested BP Systolic BP Type 76 L arm 112 sitting Fetus Heart Rate Present Fetus Movement A Yes Comments Flowsheet Date 05/25/2025 Solorzano Score Blood Edema Fundus Height Fundus Units Glucose Ketones Leukocytes Nitrite Labor Signs Protein Cervic Dilation Cervic Effacement Cervic Station Type Weight in lbs Pre/Post Dialysis Refused Weight 149.68684806272 BP Diastolic BP Location Tested BP Systolic [...] Weight in lbs Pre/Post Dialysis Refused Weight 138.366360968542 BP Diastolic BP Location Tested BP Systolic BP Type 78 L arm 120 sitting Fetus Heart Rate Present A 139 Fetus Movement A Yes Comments was at [place] yesterday wi th ruiz and back pain [...] Type Weight in lbs Pre/Post Dialysis Refused 139.324404936434 BP Diastolic BP Location Tested BP Systolic BP Type 74 L arm 119 sitting Fetus Heart Rate Present Fetus Movement A Yes Comments Flowsheet Date 05/30/2025 Solorzano Score Blood Edema Fundus Height Fundus Units Glucose Ketones Leukocytes Nitrite Labor Signs Protein Cervic Dilation Cervic Effacement Cervic Station Type Weight in lbs Pre/Post Dialysis Refused 139.799367175251 BP Diastolic BP Location Tested BP Systolic [...] Type Weight in lbs Pre/Post Dialysis Refused 142.565881769457 BP Diastolic BP Location Tested BP Systolic [...] Type Weight in lbs Pre/Post Dialysis Refused 144.932607675163 BP Diastolic BP Location Tested BP Systolic BP Type 65 L arm 98 sitting Fetus Heart Rate Present Fetus Movement A Yes Comments Flowsheet Date 06/13/2025 Solorzano Score Blood Edema Fundus Height Fundus Units Glucose Ketones Leukocytes Nitrite Labor Signs Protein Cervic Dilation Cervic Effacement Cervic Station Type Weight in lbs Pre/Post Dialysis Refused 144.137880213050 BP Diastolic BP Location Tested BP Systolic [...] Weight in lbs Pre/Post Dialysis Refused Weight 144.30869978168 BP Diastolic BP Location Tested BP Systolic BP Type 64 L arm 104 sitting Fetus Heart Rate Present Fetus Movement A Yes Comments Flowsheet Date 06/20/2025 Solorzano Score Blood Edema Fundus Height Fundus Units Glucose Ketones Leukocytes Nitrite Labor Signs Protein Cervic Dilation Cervic Effacement Cervic Station Type Weight in lbs Pre/Post Dialysis Refused 144.945347376139 BP Diastolic BP Location Tested BP Systolic [...] Type Weight in lbs Pre/Post Dialysis Refused 147.024441450396 BP Diastolic BP Location Tested BP Systolic BP Type 70 L arm 104 sitting Fetus Heart Rate Present Fetus Movement A Yes Comments Flowsheet Date 06/27/2025 Solorzano Score Blood Edema Fundus Height Fundus Units Glucose Ketones Leukocytes Nitrite Labor Signs Protein Cervic Dilation Cervic Effacement Cervic Station Type Weight in lbs Pre/Post Dialysis Refused 147.517580785414 BP Diastolic BP Location Tested BP Systolic [...]
--- OUTSIDE RECORDS SUMMARY | 2025-07-01 06:18 | XMS_ITS | Continuity of Care Document ---
[facility] Address [address] [place] [address] Assessment Encounter Date Assessment Date Assessment LastModified by Organization Details LastModified Time 05/25/2025 05/25/2025 Patient is ___weeks . Discussed plan. [email or web address] Not available 05/25/2025 16:10:21 Plan of Treatment Reminders Order Date Submit [...] Resul ting Lab: [facility] [address] [facility] [address] Tel: CULTU RE ----- ----- ----- --- No growt h in 1 day (dete ction level of 10,00 0 colon ies / ml.) Not Available [facility] (Lab) [address] [facility], [place], [address], 03/19/2025 07:23:20 03/17/20 25 03/17/2025 CBC W/DIF F WBC 5.0 10'3/ uL 3.5-10 .5 Not Available [facility] (Lab) [address] [facility] [address] [facility], [place], [address], 03/21/2025 14:27:06 03/17/20 25 03/17/2025 CBC W/DIF F RBC 3.57 10'6/ uL (based on docume nted legal sex) 3.80-5 .20 low Not Available [facility] (Lab) [address] [facility] [facility], [place], [address], 03/21/2025 14:27:06 03/17/20 25 03/17/2025 CBC W/DIF F HGB 10.5 g/dL (based on docume nted legal sex) 11.6-1 5.4 low Not Available [facility] (Lab) [address] [place], [address], 03/21/2025 14:27:06 03/17/20 25 03/17/2025 CBC W/DIF F HCT 30.2 % (based on docume nted legal sex) 34.0-4 5.0 low Not Available [facility] (Lab) [address] [facility] [facility], [place], [address], 03/21/2025 14:27:06 03/17/20 25 03/17/2025 CBC W/DIF F MCV 84.6 fL 80.0-9 9.0 Not Available [facility] (Lab) [address] [facility], [place], [address], 03/21/2025 14:27:06 03/17/20 25 03/17/2025 CBC W/DIF F MCH 29.4 pg 27.0-3 4.0 Not Available [facility] (Lab) [address] [facility] [address] [facility], [place], [address], 03/21/2025 14:27:06 03/17/20 25 03/17/2025 CBC W/DIF F MCHC 34.8 g/dL 32.0-3 5.5 Not Available [facility] (Lab) [address] [facility] [facility], [place], [address], 03/21/2025 14:27:06 03/17/20 25 03/17/2025 CBC W/DIF F RDW 13.3 % 11.0-1 5.0 Not Available [facility] (Lab) [address] [facility] [facility], [place], [address], 03/21/2025 14:27:06 03/17/20 25 03/17/2025 CBC W/DIF F plt 235 10'3/ uL 150-40 0 Not Available [facility] (Lab) [address] [facility], [place], [address], 03/21/2025 14:27:06 03/17/20 25 03/17/2025 CBC W/DIF F MPV 10.4 fL 8.8-12 .1 Not Available [facility] (Lab) [address] [facility], [place], [address], 03/21/2025 14:27:06 03/17/20 25 03/17/2025 CBC W/DIF F NRBC's 0.0 % 0.0 Not Available [facility] (Lab) [address] [facility] [address] [facility], [place], [address], 03/21/2025 14:27:06 03/17/20 25 03/17/2025 CBC W/DIF F absolute NRBCs 0.0 10'3/ uL no refere nce range establ ished Not Available [facility] (Lab) [address] [facility] [address] [facility], [place], [address], 03/21/2025 14:27:06 03/17/20 25 03/17/2025 CBC W/DIF F neutrophils 72.4 % 34.0-7 3.0 Not Available [facility] (Lab) [address] [facility] [facility], [place], [address], 03/21/2025 14:27:06 03/17/20 25 03/17/2025 CBC W/DIF F lymphocytes 14.4 % 15.0-5 0.0 low Not Available [facility] (Lab) [address] [facility] [address] [facility], [place], [address], 03/21/2025 14:27:06 03/17/20 25 03/17/2025 CBC W/DIF F monocytes 6.6 % 1.0-15 .0 Not Available [facility] (Lab) [address] [facility], [place], [address], 03/21/2025 14:27:06 03/17/20 25 03/17/2025 CBC W/DIF F eosinophils 5.2 % 0.0-8. 0 Not Available [facility] (Lab) [address] [place], [address], 03/21/2025 14:27:06 03/17/20 25 03/17/2025 CBC W/DIF F basophils 0.4 % 0.0-2. 0 Not Available [facility] (Lab) [address] [facility], [place], [address], 03/21/2025 14:27:06 03/17/20 25 03/17/2025 CBC W/DIF [...] separ ately if prese nt. Not Available [facility] (Lab) [address] [facility] [address] [facility], [place], [address], 03/21/2025 14:27:06 03/17/20 25 03/17/2025 CBC W/DIF F absolute neutrophils 3.6 10'3/ uL 1.5-8. 0 Not Available [facility] (Lab) [address] [facility] [address] [facility], [place], [address], 03/21/2025 14:27:06 03/17/20 25 03/17/2025 CBC W/DIF F absolute lymphocytes 0.7 10'3/ uL 1.0-4. 0 low Not Available [facility] (Lab) [address] [facility] [facility], [place], [address], 03/21/2025 14:27:06 03/17/20 25 03/17/2025 CBC W/DIF F absolute monocytes 0.3 10'3/ uL 0.2-1. 0 Not Available [facility] (Lab) [address] [facility] [facility], [place], [address], 03/21/2025 14:27:06 03/17/20 25 03/17/2025 CBC W/DIF F absolute eosinophils 0.3 10'3/ uL 0.0-0. 6 Not Available [facility] (Lab) [address] [facility] [facility], [place], [address], 03/21/2025 14:27:06 03/17/20 25 03/17/2025 CBC W/DIF F absolute basophils 0.0 10'3/ uL 0.0-0. 3 Not Available [facility] (Lab) [address] [facility] [address] [facility], [place], [address], 03/21/2025 14:27:06 03/17/20 25 03/17/2025 CBC W/DIF F absolute immature granulocytes 0.1 10'3/ uL 0.00-0 .10 Refer ence range s for nonbi nary/ inter sex or unspe cifie d gende r patie nts have not been estab lishe d. Pleas e refer to the davido wing table for range s estab lishe d for cisge nder patie nts and evalu ate in the clini smita ronaldo xt of the indiv idual patie nt: https ://alexi urenaand book. nm.or g/gen derx Not Available [facility] (Lab) [address], [place], [address], 03/21/2025 14:27:06 03/17/2003/17/2025 HIV 1/2 ANTIG EN/AN TIBOD Y, REFLE X CONFI RMATI ON HIV antigen/anti body Nonrea ctive nonrea ctive HIV-1 antig en and HIV-1 /HIV- 2 antib odies were not detec jluis. No labor atory evide nce of HIV infec tion. Not Available [facility] (Lab) [address], [place], [address], 03/21/2025 14:27:06 03/17/2003/17/2025 HEPAT ITIS B SURFA CE ANTIG EN hepatitis B surface antigen Non-re active non-re active This assay was perfo rmed using [facility] [employer] [facility] [employer] ratio n reage nts and test kits. Value s obtai gayla with other assay metho ds or kits canno t be used inter ele eably . Not Available [facility] (Lab) [address], [place], [address], 03/21/2025 14:27:07 03/17/20 25 03/17/2025 HEPAT ITIS C ANTIB ELOISE SCREE N, REFLE X TO CONFI RMATI ON hepatitis C antibody Non-re active non-re active Antib odies to HCV Not Detec jluis, does not exclu de the possi bilit y of expos ure to HCV. Not Available [facility] (Lab) [address], [place], [address], 03/21/2025 14:27:07 03/17/20 25 03/17/2025 RUBEL LA IGG ANTIB ELOISE, QUANT rubella antibodies, IgG Reacti ve reacti ve Not Available [facility] (Lab) [address] , [place], [address], 03/21/2025 14:27:08 03/17/20 25 03/17/2025 RUBEL LA IGG ANTIB ELOISE, QUANT rubella antibodies, IgG quant 14.2 IU/mL >=10 Non-r eacti ve (Non- Immun e) <10 IU/mL React reyna (Immu ne) > or = 10 IU/mL Not Available [facility] (Lab) [address], [place], [address], 03/21/2025 14:27:08 03/17/20 25 03/17/2025 TYPE/ RH/SC REEN ABO/Rh type B POS Not Available [facility] (Lab) [address], [place], [address], 03/21/2025 14:27:08 03/17/20 25 03/17/2025 TYPE/ RH/SC REEN antibody screen NEG Not Available [facility] (Lab) [address], [place], [address], 03/21/2025 14:27:08 03/17/20 25 03/17/2025 TYPE/ RH/SC REEN exp date 2024 23:59 Not Available [facility] (Lab) [address] [facility] [address] [facility], [place], [address], 03/21/2025 14:27:08 03/17/20 25 03/17/2025 HEMOG LOBIN [...] >8.0% Actio n sugge sted Not Available [facility] (Lab) [address], [place], [address], 03/21/2025 14:27:09 03/17/20 25 03/17/2025 RPR SCREE [...] ion (TP-P A) testi ng. Not Available [facility] (Lab) [address], [place], [address], 03/21/2025 14:27:09 03/17/20 25 03/17/2025 RPR SCREE N, REFLE X TITER /CONF IRMAT ION RPR titer 1:8 . none high Not Available [facility] (Lab) [address], [place], [address], 03/21/2025 14:27:09 03/17/20 25 03/17/2025 SYPHI LIS [...] and resul ts, see: https ://ganesh sena [employer] iclab [employer] / it-mm files /Syph ilis_ Serol ogy_A lgori thm.p df ----- ----- ----- ----A DDITI ONAL INFOR SHAJI N---- ----- ----- ----- This test is inten ded to be used as a confi rmato ry test on sampl es that have been teste d by [facility] syphi lis test. Test Perfo rmed by: [facility] [place] [address], [place] [address] Lab Direc tor: Jay Manzano nn Ph.D. ; CLIA# [id number] Not Available [facility] (Lab) [address], [place], [address], 03/21/2025 14:27:10 03/29/2003/29/2025 CT/GC AND TRICH OMONA S VAGIN SILVA (RRNA ), URINE chlamydia trachomatis, PCR Negati ve negati ve Not Available [facility] (Lab) [address], [place], [address], 03/30/2025 14:21:33 03/29/20 25 03/29/2025 CT/GC AND TRICH OMONA S VAGIN SILVA (RRNA ), URINE neisseria gonorrhoeae, PCR Negati ve negati ve Not Available [facility] (Lab) [address] [facility], [place], [address], 03/30/2025 14:21:33 03/29/20 25 03/29/2025 CT/GC AND TRICH OMONA S VAGIN SILVA (RRNA ), URINE trichomonas vaginalis ribosomal RNA (rrna) Negati ve negati ve Not Available [facility] (Lab) [address], [place], [address], 03/30/2025 14:21:33 04/20/20 25 04/20/2025 HEMAT OCRIT (HCT) HCT 29.1 % (based on docume nted legal sex) 34.0-4 5.0 low Not Available [facility] (Lab) [address] [facility], [place], [address], 04/23/2025 15:25:44 04/20/2004/20/2025 HEMOG LOBIN (HGB) HGB 9.3 g/dL (based on docume nted legal sex) 11.6-1 5.4 low Not Available [facility] (Lab) [address], [place], [address], 04/23/2025 15:25:45 04/20/2004/20/2025 HIV 1/2 ANTIG EN/AN TIBOD Y, REFLE X CONFI RMATI ON HIV antigen/anti body Nonrea ctive nonrea ctive HIV-1 antig en and HIV-1 /HIV- 2 antib odies were not detec jluis. No labor atory evide nce of HIV infec tion. Not Available [facility] (Lab) [address], [place], [address], 04/23/2025 15:25:45 04/20/2004/20/2025 RPR SCREE N, REFLE X TITER /CONF [...] ion (TP-P A) testi ng. Not Available [facility] (Lab) [address], [place], [address], 04/23/2025 15:25:46 04/20/20 25 04/20/2025 RPR SCREE N, REFLE X TITER /CONF IRMAT ION RPR titer 1:8 . none high Not Available [facility] (Lab) [address], [place], [address], 04/23/2025 15:25:46 04/20/20 25 04/20/2025 SYPHI LIS [...] and resul ts, see: https ://ganesh sena [employer] / it-mm files /Syph ilis_ Serol ogy_A lgori thm.p df ----- ----- ----- ----A DDITI ONAL INFOR MATSUELLEN N---- ----- ----- ----- This test is inten ded to be used as a confi rmato ry test on sampl es that have been teste d by [facility] syphi lis test. Test Perfo rmed by: [facility] [place] [address] , [place] [address] Lab Direc tor: Jay Manzano nn Ph.D. ; CLIA# [id number] Not Available [facility] (Lab) [address], [place], [address], 04/23/2025 15:25:46 03/17/2003/17/2025 US, obste tric, 2nd or 3rd trime ster No observ ation record ed. [email or web address] [address], [place], [address], 03/17/2025 15:45:06 03/17/20 25 03/17/2025 US, obste tric, 2nd or 3rd trime ster No observ ation record ed. [email or web address] [facility] [address], [place], [address], 03/17/2025 12:51:02 03/17/20 25 03/17/2025 US, obste tric, 2nd or 3rd trime ster No observ ation record ed. [email or web address] [facility] [address] [address], [place], [address], 04/07/2025 21:57:11 03/17/20 25 03/17/2025 US, obste tric, 2nd or 3rd trime ster No observ ation record ed. [facility] [address], [place], [address], 03/17/2025 23:04:51 03/17/20 25 03/17/2025 US, obste tric, 2nd or 3rd trime ster No observ ation record ed. [email or web address] [facility] [address], [place], [address], 03/17/2025 15:45:46 03/17/20 25 03/17/2025 US, obste tric, 2nd or 3rd trime ster No observ ation record ed. [email or web address] [facility] [address], [place], [address], 03/18/2025 17:16:02 05/18/20 25 05/18/2025 US, obste tric, follo w-up No observ ation record ed. [email or web address] [facility] [address], [place], [address], 05/18/2025 18:23:17 05/18/20 25 05/18/2025 US, obste tric, follo w-up No observ ation record ed. [email or web address] [facility] [address], [place], [address], 05/20/2025 13:20:22 05/25/2005/25/2025 US, obste tric, bioph ysica l profi le + non-s tress test No observ ation record ed. [email or web address] [facility] [address], [place], [address], 05/25/2025 17:34:34 05/25/2005/25/2025 US, obste tric, follo w-up No observ ation record ed. [email or web address] [facility] [address], [place], [address], 05/26/2025 14:44:53 05/25/2005/25/2025 non-s tress test No observ ation record ed. [email or web address] [facility] [address], [place], [address], 05/25/2025 18:39:52 05/25/20 non-s tress test No observ ation record ed. [facility] [address], [place], [address], 05/25/2025 17:32:07 05/30/2005/30/2025 US, obste tric, bioph ysica l profi le + non-s tress test No observ ation record ed. [email or web address] [facility] [address], [place], [address], 05/30/2025 12:42:17 05/30/2005/30/2025 US, obste tric, bioph ysica l profi le + non-s tress test No observ ation record ed. [email or web address] [facility] [address], [place], [address], 05/30/2025 17:35:43 05/30/2005/30/2025 non-s tress test No observ ation record ed. [email or web address] [facility] [address], [place], [address], 05/30/2025 13:00:42 05/30/20 non-s tress test No observ ation record ed. [email or web address] [facility] [address], [place], [address], 05/30/2025 13:02:59 06/06/2006/06/2025 US, obste tric, bioph ysica l profi le + non-s tress test No observ ation record ed. [email or web address] [address], [place], [address], 06/06/2025 14:28:11 06/06/2006/06/2025 US, obste tric, bioph ysica l profi le + non-s tress test No observ ation record ed. [email or web address] [facility] [address], [place], [address], 06/06/2025 15:10:23 06/07/20 25 2025 non-s tress test No observ ation record ed. [email or web address] [facility] [address], [place], [address], 2025 20:27:42 06/07/20 non-s tress test No observ ation record ed. [email or web address] Not Available 2024 15:33:58 06/13/2006/13/2025 US, obste tric, follo w-up No observ ation record ed. [email or web address] [facility] [address], [place], [address], 06/14/2025 10:34:08 06/13/20 25 06/13/2025 non-s tress test No observ ation record ed. [email or web address] [facility] [address], [place], [address], 06/19/2025 18:04:34 06/13/20 non-s tress test No observ ation record ed. [email or web address] [facility] [address], [place], [address], 06/13/2025 18:04:44 06/13/2006/14/2025 US, obste tric, follo w-up No observ ation record ed. [facility] [address], [place], [address], 06/14/2025 13:38:03 06/13/2006/14/2025 US, obste tric, bioph ysica l profi le + non-s tress test No observ ation record ed. [facility] [address], [place], [address], 06/14/2025 13:38:17 06/15/2006/07/2025 non-s tress test No observ ation record ed. [facility] [address], [place], [address], 06/17/2025 09:42:27 06/20/2006/20/2025 US, obstjesús tric, bioph ysica l profi le + non-s tress test No observ ation record ed. [email or web address] [address], [place], [address], 06/20/2025 13:28:54 06/20/2006/20/2025 US, obste tric, follo w-up No observ ation record ed. [email or web address] [facility] [address] [place] [address] [address], [place], [address], 06/20/2025 16:32:26 11/03/06/20/2025 non-s tress test No observ ation record ed. [email or web address] [facility] [address], [place], [address], 06/20/2025 18:00:22 06/20/20 25 non-s tress test No observ ation record ed. [address], [place], [address], 06/20/2025 17:57:42 06/27/20 25 06/27/2025 US, obste tric, bioph ysica l profi le No observ ation record ed. [email or web address] [facility] [address], [place], [address], 06/28/2025 11:16:29 06/27/20 25 06/27/2025 US, obste tric, bioph ysica l profi le + non-s tress test No observ ation record ed. [facility] [address], [place], [address], 06/27/2025 18:49:37 06/27/20 25 06/27/2025 non-s tress test No observ ation record ed. [facility] [address], [place], [address], 06/27/2025 18:50:27 06/27/20 25 non-s tress test No observ ation record ed. [address], [place], [address], 06/27/2025 12:29:10 Result Notes None recorded. Problems Name Problem SNOMED Code Status Onset Date Resolution Date Notes Provider Name and Address Organization Details Recorded Time Anemia 868335888 Completed Trino serrano, [facility] 13:00:34 Pre-ecla mpsia 427041487 Completed 37w Delivery , 2x/wk antenata l testing Trino [facility] 4 13:00:34 Group B Streptoc occus carrier [id number] 103 Completed AMP in labor Trino Moulton [facility] 4 13:00:33 Pregnanc y 99904731 Completed 202210/27/2023 Jazz Somers [facility] 5 12:31:25 Syphilis 37150426 Completed 2022 no s/s, +fta abs- tx schedule d 06/05,, 2 Trino Moulton [facility] 4 13:00:34 Infectio n by Trichomo gwen [id number] Completed 2022 2/2 positive - tinidazo le tx 2/5 - [facility] 4 13:00:34 Gonorrhe a 73354988 Completed 2022 PA sent 08/20 for Ceftriax one - [facility] 13:00:34 Pregnanc y 24157874 Active 2024 Jazz Somers [facility] 5 12:31:25 Past pregnanc y history of pre-ecla mpsia 5047499652 67290 Active 2024 recommen ded ASA previous delivery PTL 36w6d 10/08/23 EDC 10/30/23 antenata l testing Juana Warner [facility] 5 11:26:48 History of syphilis 9664919879 328677 Active 2024 treated in previous pregnanc y titers 05/2023 1:32 decrease d to 1:8 03/17 Juana Green null, [facility] 5 11:51:07 History of chlamydi al infectio n 904257615 Active 2024 Isidro Le MD [address], [place], [address], [facility] 5 12:53:43 Iron deficien cy anemia 87843837 Active 2024 hgg decrease d 731 to 9-3 Iron infusion order faxed 05/04 _ pending insuranc e) Juana serrano, [facility] 5 11:03:51 Finding of arrangem ent of fetus 43039466 Active 2024 Transver se Isidro Le MD [address], [place], [address], [facility] 5 17:33:30 Problem Notes None recorded. [...] height Body mass index (BMI) Body weight Body height Body weight Systolic And Diastolic Systolic And Diastolic Provider Name and Address Organization Details Last Updated DateTime 165.1 cm 24.8 kg/m2 33932.2 6 g 165.1 cm 12865.3 4 g 124/70 mm[Hg] 112/76 mm[Hg] Christine Lamb [facility] 17:29:22 Social History Question Answer Notes LastModified by Organizat ion Details LastModified Time Tobacco Smoking Status Never Smoker Jacqueline Eunice serrano [facility] 03/07/2023 14:21:17 Are You Blind Or Do You Have Difficulty Seeing? No [email or web address] Information n ot available 10/01/2023 What Is Your Level Of Caffeine Consumption? Occasional [email or web address] Information not available 10/01/2023 How Much Tobacco Do You Chew? None [email or web address] Information not available 10/01/2023 In The 14 Days Before Symptom Onset, Have You Had Close Contact With A Laboratory-confirm ed COVID-19 While That Case Was Ill? No [email or web address] Information n ot available 10/01/2023 In The 14 Days Before Symptom Onset, Have You Had Close Contact With A Person Who Is Under Investigation For COVID-19 While That Person Was Ill? No [email or web address] Information not available 10/01/2023 Have You Been To An Area Known To Be High Risk For COVID-19? No Information not available 10/01/2023 Are You Deaf Or Do You Have Serious Difficulty Hearing? No [email or web address] Information not available 10/01/2023 What Type Of Diet Are You Following? REGULAR [email or web address] Information n ot available 10/01/2023 What Is The Highest Grade Or Level Of School You Have Completed Or The Highest Degree You Have Received? [id number] [email or web address] Information not available 10/01/2023 Are There Any Guns Present In Your Home? No [email or web address] Information not available 10/01/2023 Do You Use Protection During Sex? Usually [email or web address] Information not available 10/01/2023 Do You Use Your Seat Belt Or Car Seat Routinely? Yes [email or web address] Information not available 10/01/2023 Do You Have Smoke And Carbon Monoxide Detectors In Your Home? No Information not available 10/01/2023 How Much Tobacco Do You Smoke? No [email or web address] Information not available 10/01/2023 Do You Use Sunscreen Routinely? No [email or web address] Information not available 10/01/2023 Have You Used IV Drugs? No [email or web address] Information not available 10/01/2023 Do You Have Difficulty Walking Or Climbing Stairs? No [email or web address] Information not available 10/01/2023 Sex: Unknown Functional Status Question Answer Note LastModified by Organizat ion Details LastModified Time Do you use any illicit or recreational drugs? No [email or web address] Information not available 10/01/2023 What is your level of alcohol consumption? None Information not available 10/01/2023 Are you able to walk independently without assistance or assistive devices? YESWOREST [email or web address] Information not available 10/01/2023 Are you able to care for yourself independently? Yes [email or web address] Information not available 10/01/2023 Do you have difficulty dressing, bathing, grooming, or toileting? No Information not available 10/01/2023 What is your exercise level? Moderate [email or web address] Information not available 10/01/2023 Mental Status Question Answer Note LastModified by Organization D etails LastModified Time Do you feel stressed (tense, restless, nervous, or anxious, or unable to sleep at night)? [id number] [email or web address] Information not available 10/01/2023 Family History Relationship Description Onset Age of this Age Resolved Age Notes LastModified by Organization Details LastModified Time Father No current problems or disability [email or web address] Not available 12/10 15:37:19 Mother No current problems or disability [email or web address] Not available 12/10 15:37:19 Medical History Condition Response Allergies (Food, seasonal, environmental ) N Other N Breast Cancer N Drug/Latex Allergies/Reactions N Blood Transfusion N Dermatologic Disorders N Lung Disease N Defects or Inherited Disease N Breast Problem N Gestational Diabetes N Hematologic disorders N Anesthesia Complications N History of STI Y Deep Vein Thrombosis N Polycystic ovary syndrome N Anxiety Disorder N Autoimmune disease N Arthritis N Infertility N Polyps N Acid Reflux (GERD) N History of abnormal pap N Cancer N Stroke N Varicosities N Neurologic/Epilepsy N Endometriosis N High Cholesterol N Headaches N Fibromyalgia N Kidney Disease N Heart Problems N Kidney or Bladder Problems N Thyroid Problems N GI Problems N Eating Disorder [...] ICD10 Code Diagnosis IMO Codes Diagnosis Note [id number] MD Clay Aragon [address],[place] [address] 05/05/2025 16:07:26 05/05/2025 17:26:18 care status [id number] Z34.83 [id number] MD Clay Aragon [address],[place] [address] 05/18/2025 15:16:07 05/18/2025 15:56:40 care: obstetric risk [id number] O09.293 Z3A.32 [id number] MD Clay Aragon [address],[place] [address] 05/18/2025 15:17:46 05/18/2025 16:51:15 care status [id number] Z34.83 [id number] MD Clay Aragon [address],[place] [address] 05/25/2025 15:01:48 05/25/2025 15:34:08 care: obstetric risk [id number] O09.293 O09.299 Z3A.33 [id number] MD Clay Aragon [address],[place] [address] 05/25/2025 15:07:02 05/25/2025 17:32:49 Past history of pre-eclampsia [id number] Z87.59 [id number] MD Clay Aragon 2015 [address],[place] [address] 05/25/2025 15:07:21 05/25/2025 17:10:12 care status [id number] Z34.83 [id number] Health Concerns Section Related Observation LastModified by Organization Detai ls LastModified Time None Recorded Concern Status LastModified by Organization Details LastModified Time None Recorded Payers Encounter Date Sequence Insurance Name Policy Number Policy Vital Covered Member ID Vital Member ID Guarantor Name 05/25/2025 1 [place]: [employer] Gisela Fitzgeraldver [id number] Gisela Bates Notes Date Note Type Note Provider Name and Address Organization Details Recorded Time 05/25/2025 text/html Generic HPI TemplateReported by Patient Isidro Le MD [address], [place], [address], [facility] 05/25/2025 17:09:10 OBGyn Episode Ob Episode Information Episode Created Date Number of Fetuses Patient Bloodtype Patient rh Status Prepregnancy Weight lbs Domestic Partner Domestic Partner Phone Father Name Plc Engineer Status 03/17/20 25 1 B Positive OPEN Fetus Data First Name Last Name Admitted to NICU Weight (g) Sex Living Outcome Pediatric Complications Fetus ID Race Codes Race Delivery Type [id number] Problems Problem Notes + RPR tx spoke [...] , fax all labs to health dept [phone] . 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 Problem Name Start Date End Date Resolution Snomed Code Not e History of syphilis 03/17/2025 [id number] treated in previous pregnancytiters 05/2023 1:32 decreased to 1:8 03/17 Iron deficiency anemia 05/04/2025 [id number] hgg decreased to 9-3 Iron infusion order faxed 05/04 _ pending insurance) History of chlamydial infection 03/17/2025 [id number] Past history of pre-eclampsia 03/17/2025 [id number] recommended ASAprevious delivery PTL 36w6d 10/08/23 EDC 10/30/23 testing Finding of arrangement of fetus 06/13/2025 [id number] Transverse Jerome Calculation Initial Jerome Date Initial [...] Latest Days Gestation 0 07/08/20 25 0 Pre-froilan Flowsheet Flowsheet Date 03/17/2025 Solorzano Score Blood Edema Fundus Height Fundus Units Glucose Ketones Leukocytes Nitrite Labor Signs Protein Cervic Dilation Cervic Effacement Cervic Station Type Weight in lbs Pre/Post Dialysis Refused Weight 131.885007998808 BP Diastolic BP Location Tested BP Systolic [...] Weight in lbs Pre/Post Dialysis Refused Weight 131.598762073966 BP Diastolic BP Location Tested BP Systolic [...] Type Weight in lbs Pre/Post Dialysis Refused 133.125326928327 BP Diastolic BP Location Tested BP Systolic [...] Type Weight in lbs Pre/Post Dialysis Refused 135.27355387515 BP Diastolic BP Location Tested BP Systolic [...] Type Weight in lbs Pre/Post Dialysis Refused 135.72999028821 BP Diastolic BP Location Tested BP Systolic [...] Weight in lbs Pre/Post Dialysis Refused Weight 139.59096376152 BP Diastolic BP Location Tested BP Systolic BP Type 76 L arm 112 sitting Fetus Heart Rate Present Fetus Movement A Yes Comments Flowsheet Date 05/25/2025 Solorzano Score Blood Edema Fundus Height Fundus Units Glucose Ketones Leukocytes Nitrite Labor Signs Protein Cervic Dilation Cervic Effacement Cervic Station Type Weight in lbs Pre/Post Dialysis Refused Weight 149.86145670853 BP Diastolic BP Location Tested BP Systolic [...] Weight in lbs Pre/Post Dialysis Refused Weight 138.652985424563 BP Diastolic BP Location Tested BP Systolic BP Type 78 L arm 120 sitting Fetus Heart Rate Present A 139 Fetus Movement A Yes Comments was at [place] yesterday wi th ruiz and back pain [...] Type Weight in lbs Pre/Post Dialysis Refused 139.884591056958 BP Diastolic BP Location Tested BP Systolic BP Type 74 L arm 119 sitting Fetus Heart Rate Present Fetus Movement A Yes Comments Flowsheet Date 05/30/2025 Solorzano Score Blood Edema Fundus Height Fundus Units Glucose Ketones Leukocytes Nitrite Labor Signs Protein Cervic Dilation Cervic Effacement Cervic Station Type Weight in lbs Pre/Post Dialysis Refused 139.233697008299 BP Diastolic BP Location Tested BP Systolic [...] Type Weight in lbs Pre/Post Dialysis Refused 142.743035264418 BP Diastolic BP Location Tested BP Systolic [...] Type Weight in lbs Pre/Post Dialysis Refused 144.396315046109 BP Diastolic BP Location Tested BP Systolic BP Type 65 L arm 98 sitting Fetus Heart Rate Present Fetus Movement A Yes Comments Flowsheet Date 06/13/2025 Solorzano Score Blood Edema Fundus Height Fundus Units Glucose Ketones Leukocytes Nitrite Labor Signs Protein Cervic Dilation Cervic Effacement Cervic Station Type Weight in lbs Pre/Post Dialysis Refused 144.434836171016 BP Diastolic BP Location Tested BP Systolic [...] Weight in lbs Pre/Post Dialysis Refused Weight 144.22793561765 BP Diastolic BP Location Tested BP Systolic BP Type 64 L arm 104 sitting Fetus Heart Rate Present Fetus Movement A Yes Comments Flowsheet Date 06/20/2025 Solorzano Score Blood Edema Fundus Height Fundus Units Glucose Ketones Leukocytes Nitrite Labor Signs Protein Cervic Dilation Cervic Effacement Cervic Station Type Weight in lbs Pre/Post Dialysis Refused 144.183984365657 BP Diastolic BP Location Tested BP Systolic [...] Type Weight in lbs Pre/Post Dialysis Refused 147.054495267705 BP Diastolic BP Location Tested BP Systolic BP Type 70 L arm 104 sitting Fetus Heart Rate Present Fetus Movement A Yes Comments Flowsheet Date 06/27/2025 Solorzano Score Blood Edema Fundus Height Fundus Units Glucose Ketones Leukocytes Nitrite Labor Signs Protein Cervic Dilation Cervic Effacement Cervic Station Type Weight in lbs Pre/Post Dialysis Refused 147.338123530869 BP Diastolic BP Location Tested BP Systolic [...]
--- OUTSIDE RECORDS SUMMARY | 2025-07-01 06:18 | XMS_ITS | Continuity of Care Document ---
Author Organization [facility], [facility] Address [address] [place] [address] Assessment Encounter Date Assessment Date Assessment LastModified by Organization Details LastModified Time 06/06/2025 06/06/2025 Patient is ___weeks . Discussed plan. [email or web address] Not available 06/06/2025 15:13:13 Plan of Treatment Reminders Order Date Submit [...] LAB [address] [facility] [address] Tel: CULTU RE ----- ----- ----- --- No growt h in 1 day (dete ction level of 10,00 0 colon ies / ml.) Not Available [facility] (Lab) [address] [facility], [place], [address], 03/19/2025 07:23:20 03/17/20 25 03/17/2025 CBC W/DIF F WBC 5.0 10'3/ uL 3.5-10 .5 Not Available [facility] (Lab) [address] [facility], [place], [address], 03/21/2025 14:27:06 03/17/20 25 03/17/2025 CBC W/DIF F RBC 3.57 10'6/ uL (based on docume nted legal sex) 3.80-5 .20 low Not Available [facility] (Lab) [address] [facility], [place], [address], 03/21/2025 14:27:06 03/17/20 25 03/17/2025 CBC W/DIF F HGB 10.5 g/dL (based on docume nted legal sex) 11.6-1 5.4 low Not Available [facility] (Lab) [address] [facility], [place], [address], 03/21/2025 14:27:06 03/17/20 25 03/17/2025 CBC W/DIF F HCT 30.2 % (based on docume nted legal sex) 34.0-4 5.0 low Not Available [facility] (Lab) [address] [facility], [place], [address], 03/21/2025 14:27:06 03/17/20 25 03/17/2025 CBC W/DIF F MCV 84.6 fL 80.0-9 9.0 Not Available [facility] (Lab) [address] [facility], [place], [address], 03/21/2025 14:27:06 03/17/20 25 03/17/2025 CBC W/DIF F MCH 29.4 pg 27.0-3 4.0 Not Available [facility] (Lab) [address] [facility], [place], [address], 03/21/2025 14:27:06 03/17/20 25 03/17/2025 CBC W/DIF F MCHC 34.8 g/dL 32.0-3 5.5 Not Available [facility] (Lab) [address] [facility], [place], [address], 03/21/2025 14:27:06 03/17/20 25 03/17/2025 CBC W/DIF F RDW 13.3 % 11.0-1 5.0 Not Available [facility] (Lab) [address] [facility], [place], [address], 03/21/2025 14:27:06 03/17/20 25 03/17/2025 CBC W/DIF F plt 235 10'3/ uL 150-40 0 Not Available [facility] (Lab) [address] [facility], [place], [address], 03/21/2025 14:27:06 03/17/20 25 03/17/2025 CBC W/DIF F MPV 10.4 fL 8.8-12 .1 Not Available [facility] (Lab) [address] [facility], [place], [address], 03/21/2025 14:27:06 03/17/20 25 03/17/2025 CBC W/DIF F NRBC's 0.0 % 0.0 Not Available [facility] (Lab) [address] [facility], [place], [address], 03/21/2025 14:27:06 03/17/20 25 03/17/2025 CBC W/DIF F absolute NRBCs 0.0 10'3/ uL no refere nce range establ ished Not Available [facility] (Lab) [address] [facility], [place], [address], 03/21/2025 14:27:06 03/17/20 25 03/17/2025 CBC W/DIF F neutrophils 72.4 % 34.0-7 3.0 Not Available [facility] (Lab) [address] [facility], [place], [address], 03/21/2025 14:27:06 03/17/20 25 03/17/2025 CBC W/DIF F lymphocytes 14.4 % 15.0-5 0.0 low Not Available [facility] (Lab) [address] [facility], [place], [address], 03/21/2025 14:27:06 03/17/20 25 03/17/2025 CBC W/DIF F monocytes 6.6 % 1.0-15 .0 Not Available [facility] (Lab) [address] [facility], [place], [address], 03/21/2025 14:27:06 03/17/20 25 03/17/2025 CBC W/DIF F eosinophils 5.2 % 0.0-8. 0 Not Available [facility] (Lab) [address] [facility], [place], [address], 03/21/2025 14:27:06 03/17/20 25 03/17/2025 CBC W/DIF F basophils 0.4 % 0.0-2. 0 Not Available [facility] (Lab) [address] [facility], [place], [address], 03/21/2025 14:27:06 03/17/2003/17/2025 CBC W/DIF F immature granulocytes 1.0 % no define d refere nce range Immat ure Granu locyt es (IG) repre sents autom ated enume ratio n of Metam yeloc ytes, Myelo cytes and Promy elocy freda when IG is < 5%. Blast s are not inclu ded in IG and repor jluis separ ately if prese nt. Not Available [facility] (Lab) [address] [facility], [place], [address], 03/21/2025 14:27:06 03/17/20 25 03/17/2025 CBC W/DIF F absolute neutrophils 3.6 10'3/ uL 1.5-8. 0 Not Available [facility] (Lab) [address] [facility], [place], [address], 03/21/2025 14:27:06 03/17/20 25 03/17/2025 CBC W/DIF F absolute lymphocytes 0.7 10'3/ uL 1.0-4. 0 low Not Available [facility] (Lab) [address] [facility], [place], [address], 03/21/2025 14:27:06 03/17/20 25 03/17/2025 CBC W/DIF F absolute monocytes 0.3 10'3/ uL 0.2-1. 0 Not Available [facility] (Lab) [address] [facility], [place], [address], 03/21/2025 14:27:06 03/17/20 25 03/17/2025 CBC W/DIF F absolute eosinophils 0.3 10'3/ uL 0.0-0. 6 Not Available [facility] (Lab) [address] [facility], [place], [address], 03/21/2025 14:27:06 03/17/20 25 03/17/2025 CBC W/DIF F absolute basophils 0.0 10'3/ uL 0.0-0. 3 Not Available [facility] (Lab) [address] [facility], [place], [address], 03/21/2025 14:27:06 03/17/20 25 03/17/2025 CBC W/DIF [...] grover book. nm.or g/gen derx Not Available [facility] (Lab) [address], [place], [address], 03/21/2025 14:27:06 03/17/2003/17/2025 HIV 1/2 ANTIG EN/AN TIBOD Y, REFLE X CONFI RMATI ON HIV antigen/anti body Nonrea ctive nonrea ctive HIV-1 antig en and HIV-1 /HIV- 2 antib odies were not detec jluis. No labor atory evide nce of HIV infec tion. Not Available [facility] (Lab) [address], [place], [address], 03/21/2025 14:27:06 03/17/2003/17/2025 HEPAT ITIS B SURFA CE ANTIG EN hepatitis B surface antigen Non-re active non-re active This assay was perfo rmed using [facility] [employer] ratio n reage nts and test kits. Value s obtai gayla with other assay metho ds or kits canno t be used inter lee eably . Not Available [facility] (Lab) [address], [place], [address], 03/21/2025 14:27:07 03/17/20 25 03/17/2025 HEPAT ITIS C ANTIB ELOISE SCREE N, REFLE X TO CONFI RMATI ON hepatitis C antibody Non-re active non-re active Antib odies to HCV Not Detec jluis, does not exclu de the possi bilit y of expos ure to HCV. Not Available [facility] (Lab) [address], [place], [address], 03/21/2025 14:27:07 03/17/20 25 03/17/2025 RUBEL LA IGG ANTIB ELOISE, QUANT rubella antibodies, IgG Reacti ve reacti ve Not Available [facility] (Lab) [address], [place], [address], 03/21/2025 14:27:08 03/17/20 25 03/17/2025 RUBEL LA IGG ANTIB ELOISE, QUANT rubella antibodies, IgG quant 14.2 IU/mL >=10 Non-r eacti ve (Non- Immun e) <10 IU/mL React reyna (Immu ne) > or = 10 IU/mL Not Available [facility] (Lab) [address] [facility], [place], [address], 03/21/2025 14:27:08 03/17/20 25 03/17/2025 TYPE/ RH/SC REEN ABO/Rh type B POS Not Available [facility] (Lab) [address] [facility], [place], [address], 03/21/2025 14:27:08 03/17/20 25 03/17/2025 TYPE/ RH/SC REEN antibody screen NEG Not Available [facility] (Lab) [address] [facility], [place], [address], 03/21/2025 14:27:08 03/17/20 25 03/17/2025 TYPE/ RH/SC REEN exp date 2024 23:59 Not Available [facility] (Lab) [address] [facility], [place], [address], 03/21/2025 14:27:08 03/17/20 25 03/17/2025 HEMOG LOBIN [...] >8.0% Actio n sugge sted Not Available [facility] (Lab) [address] [facility], [place], [address], 03/21/2025 14:27:09 03/17/20 25 03/17/2025 RPR SCREE [...] ion (TP-P A) testi ng. Not Available [facility] (Lab) [address] [facility], [place], [address], 03/21/2025 14:27:09 03/17/20 25 03/17/2025 RPR SCREE N, REFLE X TITER /CONF IRMAT ION RPR titer 1:8 . none high Not Available [facility] (Lab) [address] [facility], [place], [address], 03/21/2025 14:27:09 03/17/20 25 03/17/2025 SYPHI LIS [...] and resul ts, see: https ://ganesh sena [employer] iclab sThe [employer] / it-mm files /Syph ilis_ Serol ogy_A lgori thm.p df ----- ----- ----- ----A DDITI ONAL INFOR SHAJI N---- ----- ----- ----- This test is inten ded to be used as a confi rmato ry test on sampl es that have been teste d by [facility] syphi lis test. Test Perfo rmed by: [facility] [place] [address], [place] [address] Lab Direc tor: Jay Manzano nn Ph.D. ; CLIA# [id number] Not Available [facility] (Lab) [address] [facility], [place], [address], 03/21/2025 14:27:10 03/29/2003/29/2025 CT/GC AND TRICH OMONA S VAGIN SILVA (RRNA ), URINE chlamydia trachomatis, PCR Negati ve negati ve Not Available [facility] (Lab) [address] [facility], [place], [address], 03/30/2025 14:21:33 03/29/20 25 03/29/2025 CT/GC AND TRICH OMONA S VAGIN SILVA (RRNA ), URINE neisseria gonorrhoeae, PCR Negati ve negati ve Not Available [facility] (Lab) [address] [facility], [place], [address], 03/30/2025 14:21:33 03/29/20 25 03/29/2025 CT/GC AND TRICH OMONA S VAGIN SILVA (RRNA ), URINE trichomonas vaginalis ribosomal RNA (rrna) Negati ve negati ve Not Available [facility] (Lab) [address] [facility], [place], [address], 03/30/2025 14:21:33 04/20/20 25 04/20/2025 HEMAT OCRIT (HCT) HCT 29.1 % (based on docume nted legal sex) 34.0-4 5.0 low Not Available [facility] (Lab) [address] [facility], [place], [address], 04/23/2025 15:25:44 04/20/20 25 04/20/2025 HEMOG LOBIN (HGB) HGB 9.3 g/dL (based on docume nted legal sex) 11.6-1 5.4 low Not Available [facility] (Lab) [address] [facility], [place], [address], 04/23/2025 15:25:45 04/20/2004/20/2025 HIV 1/2 ANTIG EN/AN TIBOD Y, REFLE X CONFI RMATI ON HIV antigen/anti body Nonrea ctive nonrea ctive HIV-1 antig en and HIV-1 /HIV- 2 antib odies were not detec jluis. No labor atory evide nce of HIV infec tion. Not Available [facility] (Lab) [address] [facility], [place], [address], 04/23/2025 15:25:45 04/20/20 25 04/20/2025 RPR SCREE [...] ion (TP-P A) testi ng. Not Available [facility] (Lab) [address] [facility], [place], [address], 04/23/2025 15:25:46 04/20/20 25 04/20/2025 RPR SCREE N, REFLE X TITER /CONF IRMAT ION RPR titer 1:8 . none high Not Available [facility] (Lab) [address] [place], [address], 04/23/2025 15:25:46 04/20/20 25 04/20/2025 SYPHI LIS [...] and resul ts, see: https ://ganesh sena [employer] / it-mm files /Syph ilis_ Serol ogy_A lgori thm.p df ----- ----- ----- ----A DDITI ONAL INFOR MATNOHEMY N---- ----- ----- ----- This test is inten ded to be used as a confi rmato ry test on sampl es that have been teste d by [facility] syphi lis test. Test Perfo rmed by: [facility] [place] [address] [place] [address] Lab Direc tor: Jay Manzano nn Ph.D. ; CLIA# [id number] Not Available [facility] (Lab) [address] [facility], [place], [address], 04/23/2025 15:25:46 05/27/20 25 05/27/2025 PROTE IN/CR EATIN INE RATIO , URINE creatinine, urine 123.0 mg/dL R-No refer ence range estab lishe d for this assay Not Available [facility] (Lab) [address], [place], [address], 05/28/2025 10:30:45 05/27/20 25 05/27/2025 PROTE IN/CR EATIN INE RATIO , URINE protein, urine 22 mg/dL R-No refer ence range estab lishe d for this assay Not Available [facility] (Lab) [address] [facility], [place], [address], 05/28/2025 10:30:45 05/27/20 25 05/27/2025 PROTE IN/CR [...] fican t prote inuri a. Not Available [facility] (Lab) [address] [facility], [place], [address], 05/28/2025 10:30:45 06/06/20 25 06/06/2025 CT/GC AND TRICH OMONA S VAGIN SILVA (RRNA ), URINE chlamydia trachomatis, PCR Negati ve negati ve Not Available [facility] (Lab) [address] [facility], [place], [address], 06/09/2025 16:13:50 06/06/20 25 06/06/2025 CT/GC AND TRICH OMONA S VAGIN SILVA (RRNA ), URINE neisseria gonorrhoeae, PCR Negati ve negati ve Not Available [facility] (Lab) [address] [facility], [place], [address], 06/09/2025 16:13:50 06/06/20 25 06/06/2025 CT/GC AND TRICH OMONA S VAGIN SILVA (RRNA ), URINE trichomonas vaginalis ribosomal RNA (rrna) Negati ve negati ve Not Available [facility] (Lab) [address] [facility], [place], [address], 06/09/2025 16:13:50 06/06/20 25 06/06/2025 CULTU RE: GROUP B STREP SCREE N, REFLE X SUSCE PTIBI LITY result report SEE RESULT S BELOW Test: Cultu re: Group B Strep , Refle x Susce ptibi lity ([facility]/ [facility] ) Speci men Sourc e: Vagin a/Rec brannon Speci men Type: Vagin al/Re ctal Speci men Date: 06/06 1619 Resul t Date: 06/09 1508 Resul t Statu s: Final resul t Abnor mal: No Resul ting Lab: [facility] [address] [facility] [address] Tel: CULTU RE ----- ----- ----- --- No Group B strep isola jluis at 2 days (shelia ctive broth enhan cemen t) Not Available [facility] (Lab) [address], [place], [address], 06/09/2025 16:13:50 03/17/20 25 03/17/2025 US, obste tric, 2nd or 3rd trime ster No observ ation record ed. [email or web address] [address], [place], [address], 03/17/2025 15:45:06 03/17/20 25 03/17/2025 US, obste tric, 2nd or 3rd trime ster No observ ation record ed. [email or web address] [facility] [address], [place], [address], 03/17/2025 12:51:02 03/17/20 25 03/17/2025 US, obste tric, 2nd or 3rd trime ster No observ ation record ed. [email or web address] [facility] [address], [place], [address], 04/07/2025 21:57:11 03/17/20 25 03/17/2025 US, obste tric, 2nd or 3rd trime ster No observ ation record ed. [email or web address] [facility] [address], [place], [address], 03/17/2025 23:04:51 03/17/20 25 03/17/2025 US, obste tric, 2nd or 3rd trime ster No observ ation record ed. [email or web address] [facility] [address], [place], [address], 03/17/2025 15:45:46 03/17/20 25 03/17/2025 US, obste tric, 2nd or 3rd trime ster No observ ation record ed. [email or web address] [facility] [address], [place], [address], 03/18/2025 17:16:02 05/18/2005/18/2025 US, obste tric, follo w-up No observ ation record ed. [facility] [address], [place], [address], 05/18/2025 18:23:17 05/18/2005/18/2025 US, obste tric, follo w-up No observ ation record ed. [email or web address] [facility] [address], [place], [address], 05/20/2025 13:20:22 05/25/2005/25/2025 , obste tric, bioph ysica l profi le + non-s tress test No observ ation record ed. [facility] [address], [place], [address], 05/25/2025 17:34:34 05/25/20 25 05/25/2025 US, obste tric, follo w-up No observ ation record ed. [email or web address] [facility] [address], [place], [address], 05/26/2025 14:44:53 05/25/2005/25/2025 non-s tress test No observ ation record ed. [email or web address] [facility] [address], [place], [address], 05/25/2025 18:39:52 05/25/20 non-s tress test No observ ation record ed. [facility] [address], [place], [address], 05/25/2025 17:32:07 05/30/2005/30/2025 US, obste tric, bioph ysica l profi le + non-s tress test No observ ation record ed. [email or web address] [facility] [address], [place], [address], 05/30/2025 12:42:17 05/30/2005/30/2025 US, obste tric, bioph ysica l profi le + non-s tress test No observ ation record ed. [email or web address] [facility] [address], [place], [address], 05/30/2025 17:35:43 05/30/2005/30/2025 non-s tress test No observ ation record ed. [email or web address] [facility] [address], [place], [address], 05/30/2025 13:00:42 05/30/20 non-s tress test No observ ation record ed. [email or web address] [facility] [address], [place], [address], 05/30/2025 13:02:59 06/06/2006/06/2025 US, obste tric, bioph ysica l profi le + non-s tress test No observ ation record ed. [email or web address] [facility] [address], [place], [address], 06/06/2025 14:28:11 06/06/2006/06/2025 , lucretia dimas, bioph ysica l profi le + non-s tress test No observ ation record ed. [email or web address] [facility] [address], [place], [address], 06/06/2025 15:10:23 06/07/2006/07/2025 non-s tress test No observ ation record ed. [email or web address] [facility] [address], [place], [address], 2025 20:27:42 06/07/20 non-s tress test No observ ation record ed. [email or web address] Not Available 2024 15:33:58 06/13/2006/13/2025 , obste tric, follo w-up No observ ation record ed. [email or web address] [facility] [address], [place], [address], 06/14/2025 10:34:08 06/13/2006/13/2025 non-s tress test No observ ation record ed. PATRICIA [facility] [address], [place], [address], 06/19/2025 18:04:34 06/13/20 non-s tress test No observ ation record ed. [email or web address] [facility] [address], [place], [address], 06/13/2025 18:04:44 06/13/2006/14/2025 US, obste tric, follo w-up No observ ation record ed. [email or web address] [facility] [address], [place], [address], 06/14/2025 13:38:03 06/13/20 25 06/14/2025 US, obste tric, bioph ysica l profi le + non-s tress test No observ ation record ed. [email or web address] [facility] [address], [place], [address], 06/14/2025 13:38:17 06/15/20 25 2025 non-s tress test No observ ation record ed. [facility] [address], [place], [address], 06/17/2025 09:42:27 06/20/2006/20/2025 US, lucretia tric, bioph ysica l profi le + non-s tress test No observ ation record ed. [email or web address] [facility] [address], [place], [address], 06/20/2025 13:28:54 06/20/20 25 06/20/2025 US, obstjesús tric, follo w-up No observ ation record ed. [facility] [address], [place], [address], 06/20/2025 16:32:26 06/20/20 25 06/20/2025 non-s tress test No observ ation record ed. [email or web address] [facility] [address], [place], [address], 06/20/2025 18:00:22 06/20/20 non-s tress test No observ ation record ed. [facility] [address], [place], [address], 06/20/2025 17:57:42 06/27/20 25 06/27/2025 US, obste tric, bioph ysica l profi le No observ ation record ed. [email or web address] [facility] [address], [place], [address], 06/28/2025 11:16:29 06/27/2006/27/2025 US, obste tric, bioph ysica l profi le + non-s tress test No observ ation record ed. [facility] [address], [place], [address], 06/27/2025 18:49:37 06/27/20 25 06/27/2025 non-s tress test No observ ation record ed. [facility] [address], [place], [address], 06/27/2025 18:50:27 06/27/20 non-s tress test No observ ation record ed. [email or web address] [facility] [address], [place], [address], 06/27/2025 12:29:10 Result Notes None recorded. Problems Name Problem SNOMED Code Status Onset Date Resolution Date Notes Provider Name and Address Organization Details Recorded Time Anemia 312245610 Completed Trino serrano, [facility] 4 13:00:34 Pre-ecla mpsia 722040913 Completed 37w Delivery , 2x/wk antenata l testing Trino serrano, [facility] 4 13:00:34 Group B Streptoc occus carrier [id number] 103 Completed AMP in labor Trino serrano, [facility] 4 13:00:33 Pregnanc y 34831694 Completed 202210/27/2023 Jazz serrano, [facility] 5 12:31:25 Syphilis 09970713 Completed 2022 no s/s, +fta abs- tx schedule d 06/05,, 2 Britaney Saige [facility] 4 13:00:34 Infectio n by Analia hidalgo [id number] Completed 2022 2/2 positive - tinidazo le tx 2/5 - RONEN in 4wks Trino Moulton [facility] 4 13:00:34 Gonorrhe a 91939665 Completed 2022 PA sent 08/20 for Ceftriax one - RONEN NEGATIVE Trino Moulton [facility] 4 13:00:34 Pregnanc y 40765866 Active 2024 Jazz Yonis [facility] 5 12:31:25 Past pregnanc y history of pre-ecla mpsia 2937867198 44255 Active 2024 recommen ded ASA previous delivery PTL 36w6d 10/08/23 EDC 10/30/23 antenata l testing Juana Warner [facility] 5 11:26:48 History of syphilis [id number] 994741 Active 2024 treated in previous pregnanc y titers 05/2023 1:32 decrease d to 1:8 03/17 [facility] 11:51:07 History of chlamydi al infectio n 978496270 Active 2024 Isidro Le MD [address], [place], [address], [place] [facility] 5 12:53:43 Iron deficien cy anemia 23734940 Active 2024 hgg decrease d 03-17 to 9-3 Iron infusion order faxed 05/04 _ pending insuranc e) Juana Warner [facility], [facility] 5 11:03:51 Finding of arrangem ent of fetus 61424435 Active 2024 Transver se Isidro Le MD [address], [place], [address], [facility] 17:33:30 Problem Notes None recorded. Medical [...] Not Available Vitals Date Recorded Body weight Systolic And Diastolic Provider Name and Address Organization Details Last Updated DateTime 06/06/2025 01761.75315 g 109/69 mm[Hg] Jzaz Somers [facility] 06/06/2025 15:13:54 Social History Question Answer Notes LastModified by Organizat ion Details LastModified Time Tobacco Smoking Status Never Smoker Jacqueline Eunice serrano, [facility] 03/07/2023 14:21:17 Are You Blind Or Do You Have Difficulty Seeing? No [email or web address] Information n ot available 10/01/2023 What Is Your Level Of Caffeine Consumption? Occasional [email or web address] Information not available 10/01/2023 How Much Tobacco Do You Chew? None [email or web address] Information not available 10/01/2023 In The 14 Days Before Symptom Onset, Have You Had Close Contact With A Laboratory-confirm ed COVID-19 While That Case Was Ill? No [email or web address] Information n ot available 10/01/2023 In The 14 Days Before Symptom Onset, Have You Had Close Contact With A Person Who Is Under Investigation For COVID-19 While That Person Was Ill? No Information not available 10/01/2023 Have You Been To An Area Known To Be High Risk For COVID-19? No [email or web address] Information not available 10/01/2023 Are You Deaf Or Do You Have Serious Difficulty Hearing? No [email or web address] Information not available 10/01/2023 What Type Of Diet Are You Following? REGULAR [email or web address] Information n ot available 10/01/2023 What Is The Highest Grade Or Level Of School You Have Completed Or The Highest Degree You Have Received? [id number] [email or web address] Information not available 10/01/2023 Are There Any Guns Present In Your Home? No [email or web address] Information not available 10/01/2023 Do You Use Protection During Sex? Usually [email or web address] Information not available 10/01/2023 Do You Use Your Seat Belt Or Car Seat Routinely? Yes [email or web address] Information not available 10/01/2023 Do You Have Smoke And Carbon Monoxide Detectors In Your Home? No [email or web address] Information not available 10/01/2023 How Much Tobacco Do You Smoke? No Information not available 10/01/2023 Do You Use Sunscreen Routinely? No [email or web address] Information not available 10/01/2023 Have You Used IV Drugs? No [email or web address] Information not available 10/01/2023 Do You Have Difficulty Walking Or Climbing Stairs? No [email or web address] Information not available 10/01/2023 Sex: Unknown Functional Status Question Answer Note LastModified by Organizat ion Details LastModified Time Do you use any illicit or recreational drugs? No Information not available 10/01/2023 What is your level of alcohol consumption? None [email or web address] Information not available 10/01/2023 Are you able to walk independently without assistance or assistive devices? YESWOREST [email or web address] Information not available 10/01/2023 Are you able to care for yourself independently? Yes [email or web address] Information not available 10/01/2023 Do you have difficulty dressing, bathing, grooming, or toileting? No Information not available 10/01/2023 What is your exercise level? Moderate Information not available 10/01/2023 Mental Status Question Answer Note LastModified by Organization D etails LastModified Time Do you feel stressed (tense, restless, nervous, or anxious, or unable to sleep at night)? [id number] [email or web address] Information not available 10/01/2023 Family History Relationship [...] ICD10 Code Diagnosis IMO Codes Diagnosis Note [id number] Isidro Le MD [place] [address],[facility] [place] [address] 05/18/2025 15:16:07 05/18/2025 15:56:40 care: obstetric risk 064029904 O09.293 Z3A.32 [id number] MD Clay Aragon [address] [place] [address] 05/18/2025 15:17:46 05/18/2025 16:51:15 care status 343197432 Z34.83 [id number] MD Clay Aragon [address] [place] [address] 05/25/2025 15:01:48 05/25/2025 15:34:08 care: obstetric risk 660465778 O09.293 O09.299 Z3A.33 [id number] [id number] Isidro Le MD [place] [address],[place] [address] 05/25/2025 15:07:02 05/25/2025 17:32:49 Past history of pre-eclampsia 1099470123 53081 Z87.59 [id number] Isidro Le MD [place] [address],[place] [address] 05/25/2025 15:07:21 05/25/2025 17:10:12 care status 549213111 Z34.83 [id number] Mita Tavera [facility] [address],[place] [address] 05/27/2025 09:25:56 05/27/2025 09:44:43 Backache 349136936 M54.9 [id number] Acute headache 245876060 R51.9 [id number] call this afternoon if no relief will try imitrex [id number] Isidro Le MD [place] [address] 05/30/2025 11:35:55 05/30/2025 12:10:04 care: obstetric risk 885835342 O09.293 Z3A.34 6488797 [id number] Isidro Le MD [place] [address],[place] [address] 05/30/2025 11:36:32 05/30/2025 13:02:53 Pre-eclampsia 730883745 O14.90 399554 [id number] Isidro Le MD [place] [address],[place] [address] 05/30/2025 11:36:55 05/30/2025 13:17:39 care status 904940606 Z34.83 [id number] MD Clay Aragon [address],[facility] [place] [address] 06/06/2025 13:30:49 06/06/2025 14:28:09 care: obstetric risk 997760345 O09.293 Z3A.35 9735095 [id number] Isidro Le MD [place] [address],[place] [address] 06/06/2025 13:31:14 2025 10:42:54 Past history of pre-eclampsia 3841874644 88399 Z87.59 [id number] [id number] Isidro Le MD [place] [address],[place] [address] 06/06/2025 13:31:30 06/06/2025 15:34:03 care status 497732439 Z34.83 [id number] Health Concerns Section Related Observation LastModified by Organization Detai ls LastModified Time None Recorded Concern Status LastModified by Organization Details LastModified Time None Recorded Payers Encounter Date Sequence Insurance Name Policy Number Policy Vital Covered Member ID Vital Member ID Guarantor Name 06/06/2025 1 [place] [facility] [employer] Gisela Bates [id number] Gisela Bates Notes Date Note Type Note Provider Name and Address Organization Details Recorded Time 06/06/2025 text/html Generic HPI TemplateReported by Patient Isidro Le MD [address], [place], [address], [facility] 06/06/2025 15:32:26 OBGyn Episode Ob Episode Information Episode Created Date Number of Fetuses Patient Bloodtype Patient rh Status Prepregnancy Weight lbs Domestic Partner Domestic Partner Phone Father Name Abrasive Sawyer Status 03/17/20 25 1 B Positive OPEN Fetus Data First Name Last Name Admitted to NICU Weight (g) Sex Living Outcome Pediatric Complications Fetus ID Race Codes Race Delivery Type [id number] Problems Problem Notes + RPR tx spoke with [facility] Dept confirmed pt tx previous RPR 06/05/23, 06/12, & 06/19/23 titter 1:32 decreased to 1:8 per Noami antibody can be + but titer decreasing no tx unless pt sx's rash, lesions sx's rec tx if pt sx's schedule appt for evaluation. RPT labs @ 28wks , [phone] . 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 03/31 pt denies sx's JGBilateral double renal artery Problem Name Start Date End Date Resolution Snomed Code Not e History of syphilis 03/17/2025 [id number] treated in previous pregnancytiters 05/2023 1:32 decreased to 1:8 03/17 Iron deficiency anemia 05/04/2025 51324305 hgg decreased to 9-3 Iron infusion order faxed 05/04 _ pending insurance) History of chlamydial infection 03/17/2025 [id number] Past history of pre-eclampsia 03/17/2025 [id number] recommended ASAprevious delivery PTL 36w6d 10/08/23 EDC 10/30/23 testing Finding of arrangement of fetus 06/13/2025 [id number] Transverse Jerome Calculation Initial Jerome Date Initial [...] Weight in lbs Pre/Post Dialysis Refused Weight 131.477440512377 BP Diastolic BP Location Tested BP Systolic [...] Weight in lbs Pre/Post Dialysis Refused Weight 131.524567550230 BP Diastolic BP Location Tested BP Systolic [...] Type Weight in lbs Pre/Post Dialysis Refused 133.099173093355 BP Diastolic BP Location Tested BP Systolic [...] Type Weight in lbs Pre/Post Dialysis Refused 135.50959290520 BP Diastolic BP Location Tested BP Systolic [...] Type Weight in lbs Pre/Post Dialysis Refused 135.64652962527 BP Diastolic BP Location Tested BP Systolic [...] Weight in lbs Pre/Post Dialysis Refused Weight 139.10444145105 BP Diastolic BP Location Tested BP Systolic BP Type 76 L arm 112 sitting Fetus Heart Rate Present Fetus Movement A Yes Comments Flowsheet Date 05/25/2025 Solorzano Score Blood Edema Fundus Height Fundus Units Glucose Ketones Leukocytes Nitrite Labor Signs Protein Cervic Dilation Cervic Effacement Cervic Station Type Weight in lbs Pre/Post Dialysis Refused Weight 149.81231546452 BP Diastolic BP Location Tested BP Systolic [...] Weight in lbs Pre/Post Dialysis Refused Weight 138.533744572177 BP Diastolic BP Location Tested BP Systolic BP Type 78 L arm 120 sitting Fetus Heart Rate Present A 139 Fetus Movement A Yes Comments was at [facility] yesterday wi th ruiz and back pain [...] Type Weight in lbs Pre/Post Dialysis Refused 139.280263049268 BP Diastolic BP Location Tested BP Systolic BP Type 74 L arm 119 sitting Fetus Heart Rate Present Fetus Movement A Yes Comments Flowsheet Date 05/30/2025 Solorzano Score Blood Edema Fundus Height Fundus Units Glucose Ketones Leukocytes Nitrite Labor Signs Protein Cervic Dilation Cervic Effacement Cervic Station Type Weight in lbs Pre/Post Dialysis Refused 139.400164607529 BP Diastolic BP Location Tested BP Systolic [...] Type Weight in lbs Pre/Post Dialysis Refused 142.756613067810 BP Diastolic BP Location Tested BP Systolic [...] Type Weight in lbs Pre/Post Dialysis Refused 144.425812909706 BP Diastolic BP Location Tested BP Systolic BP Type 65 L arm 98 sitting Fetus Heart Rate Present Fetus Movement A Yes Comments Flowsheet Date 06/13/2025 Solorzano Score Blood Edema Fundus Height Fundus Units Glucose Ketones Leukocytes Nitrite Labor Signs Protein Cervic Dilation Cervic Effacement Cervic Station Type Weight in lbs Pre/Post Dialysis Refused 144.280976634039 BP Diastolic BP Location Tested BP Systolic [...] Weight in lbs Pre/Post Dialysis Refused Weight 144.20174364937 BP Diastolic BP Location Tested BP Systolic BP Type 64 L arm 104 sitting Fetus Heart Rate Present Fetus Movement A Yes Comments Flowsheet Date 06/20/2025 Solorzano Score Blood Edema Fundus Height Fundus Units Glucose Ketones Leukocytes Nitrite Labor Signs Protein Cervic Dilation Cervic Effacement Cervic Station Type Weight in lbs Pre/Post Dialysis Refused 144.548430621168 BP Diastolic BP Location Tested BP Systolic [...] Type Weight in lbs Pre/Post Dialysis Refused 147.729123193887 BP Diastolic BP Location Tested BP Systolic BP Type 70 L arm 104 sitting Fetus Heart Rate Present Fetus Movement A Yes Comments Flowsheet Date 06/27/2025 Solorzano Score Blood Edema Fundus Height Fundus Units Glucose Ketones Leukocytes Nitrite Labor Signs Protein Cervic Dilation Cervic Effacement Cervic Station Type Weight in lbs Pre/Post Dialysis Refused 147.461629290849 BP Diastolic BP Location Tested BP Systolic [...]
--- OUTSIDE RECORDS SUMMARY | 2025-07-01 06:18 | XMS_ITS | Continuity of Care Document ---
Author Organization [facility] [place] [facility] Address [address] [place] [address] Assessment Encounter Date Assessment Date Assessment LastModified by Organization Details LastModified Time 06/27/2025 06/27/2025 Patient is ___weeks . Discussed plan. [email or web address] Not available 06/27/2025 11:34:27 Plan of Treatment Reminders Order Date Submit [...] Resul penelopeg Lab: [facility] [address] [facility] [address] Tel: CULTU RE ----- ----- ----- --- No growt h in 1 day (dete ction level of 10,00 0 colon ies / ml.) Not Available [facility] (Lab) [address], [place], [address], 03/19/2025 07:23:20 03/17/20 25 03/17/2025 CBC W/DIF F WBC 5.0 10'3/ uL 3.5-[address] [facility] (Lab) [address], [place], [address], 03/21/2025 14:27:06 03/17/20 25 03/17/2025 CBC W/DIF F RBC 3.57 10'6/ uL (based on docume nted legal sex) 3.80-5 [address] [facility] (Lab) [address], [place], [address], 03/21/2025 14:27:06 03/17/20 25 03/17/2025 CBC W/DIF F HGB 10.5 g/dL (based on docume nted legal sex) 11.6-1 [address] [facility] (Lab) [address], [place], [address], 03/21/2025 14:27:06 03/17/20 25 03/17/2025 CBC W/DIF F HCT 30.2 % (based on docume nted legal sex) 34.0-[address] [facility] (Lab) [address], [place], [address], 03/21/2025 14:27:06 03/17/20 25 03/17/2025 CBC W/DIF F MCV 84.6 fL 80.0-[address] [facility] (Lab) [address] [facility] [address], [place], [address], 03/21/2025 14:27:06 03/17/20 25 03/17/2025 CBC W/DIF F MCH 29.4 pg 27.0-[address] [facility] (Lab) [address], [place], [address], 03/21/2025 14:27:06 03/17/20 25 03/17/2025 CBC W/DIF F MCHC 34.8 g/dL 32.0-[address] [facility] (Lab) [address], [place], [address], 03/21/2025 14:27:06 03/17/20 25 03/17/2025 CBC W/DIF F RDW 13.3 % 11.0-[address] [facility] (Lab) [address] [facility] [address] [facility], [place], [address], 03/21/2025 14:27:06 03/17/20 25 03/17/2025 CBC W/DIF F plt 235 10'3/ uL 150-[address] [facility] (Lab) [address], [place], [address], 03/21/2025 14:27:06 03/17/20 25 03/17/2025 CBC W/DIF F MPV 10.4 fL 8.8-[address] [facility] (Lab) [address], [place], [address], 03/21/2025 14:27:06 03/17/20 25 03/17/2025 CBC W/DIF F NRBC's 0.0 % 0.[address] [facility] (Lab) [address], [place], [address], 03/21/2025 14:27:06 03/17/20 25 03/17/2025 CBC W/DIF F absolute NRBCs 0.0 10'3/ uL no refere nce range establ ished Not Available [facility] (Lab) [address] [facility] [address] [facility], [place], [address], 03/21/2025 14:27:06 03/17/20 25 03/17/2025 CBC W/DIF F neutrophils 72.4 % 34.0-[address] [facility] (Lab) [address] [facility] [address] [facility], [place], [address], 03/21/2025 14:27:06 03/17/20 25 03/17/2025 CBC W/DIF F lymphocytes 14.4 % 15.0-5 0[address] [facility] (Lab) [address], [place], [address], 03/21/2025 14:27:06 03/17/20 25 03/17/2025 CBC W/DIF F monocytes 6.6 % 1.0-[address] [facility] (Lab) [address] [facility] [address], [place], [address], 03/21/2025 14:27:06 03/17/20 25 03/17/2025 CBC W/DIF F eosinophils 5.2 % 0.0-8. [address] [facility] (Lab) [address], [place], [address], 03/21/2025 14:27:06 03/17/20 25 03/17/2025 CBC W/DIF F basophils 0.4 % 0.0-2. [address] [facility] (Lab) [address] [facility] [address] [facility], [place], [address], 03/21/2025 14:27:06 03/17/2003/17/2025 CBC W/DIF F immature granulocytes 1.0 % no define d refere nce range Immat ure Granu locyt es (IG) repre sents autom ated enume ratio n of Metam yeloc ytes, Myelo cytes and Promy elocy freda when IG is < 5%. Blast s are not inclu ded in IG and repor jluis separ ately if prese nt. Not Available [facility] (Lab) [address], [place], [address], 03/21/2025 14:27:06 03/17/20 25 03/17/2025 CBC W/DIF F absolute neutrophils 3.6 10'3/ uL 1.5-8. [address] [facility] (Lab) [address] [facility] [address] [facility], [place], [address], 03/21/2025 14:27:06 03/17/20 25 03/17/2025 CBC W/DIF F absolute lymphocytes 0.7 10'3/ uL 1.0-4. [address] [facility] (Lab) [address] [facility], [place], [address], 03/21/2025 14:27:06 03/17/20 25 03/17/2025 CBC W/DIF F absolute monocytes 0.3 10'3/ uL 0.2-1. [address] [facility] (Lab) [address] [facility] [address] [facility], [place], [address], 03/21/2025 14:27:06 03/17/20 25 03/17/2025 CBC W/DIF F absolute eosinophils 0.3 10'3/ uL 0.0-0. [address] [facility] (Lab) [address] [facility] [address], [place], [address], 03/21/2025 14:27:06 03/17/20 25 03/17/2025 CBC W/DIF F absolute basophils 0.0 10'3/ uL 0.0-0. [address] [facility] (Lab) [address], [place], [address], 03/21/2025 14:27:06 03/17/20 25 03/17/2025 CBC W/DIF [...] grover book. nm.or g/gen derx Not Available [facility] (Lab) [address], [place], [address], 03/21/2025 14:27:06 03/17/2003/17/2025 HIV 1/2 ANTIG EN/AN TIBOD Y, REFLE X CONFI RMATI ON HIV antigen/anti body Nonrea ctive nonrea ctive HIV-1 antig en and HIV-1 /HIV- 2 antib odies were not detec jluis. No labor atory evide nce of HIV infec tion. Not Available [facility] (Lab) [address], [place], [address], 03/21/2025 14:27:06 03/17/2003/17/2025 HEPAT ITIS B SURFA CE ANTIG EN hepatitis B surface antigen Non-re active non-re active This assay was perfo rmed using [facility] [employer] [facility] [facility] [employer] ratio n reage nts and test kits. Value s obtai gayla with other assay metho ds or kits canno t be used inter lee eably . Not Available [facility] (Lab) [address], [place], [address], 03/21/2025 14:27:07 03/17/20 25 03/17/2025 HEPAT ITIS C ANTIB ELOISE SCREE N, REFLE X TO CONFI RMATI ON hepatitis C antibody Non-re active non-re active Antib odies to HCV Not Detec jluis, does not exclu de the possi bilit y of expos ure to HCV. Not Available [facility] (Lab) [address], [place], [address], 03/21/2025 14:27:07 03/17/20 25 03/17/2025 RUBEL LA IGG ANTIB ELOISE, QUANT rubella antibodies, IgG Reacti ve reacti ve Not Available [facility] (Lab) [address], [place], [address], 03/21/2025 14:27:08 03/17/20 25 03/17/2025 RUBEL LA IGG ANTIB ELOISE, QUANT rubella antibodies, IgG quant 14.2 IU/mL >=10 Non-r eacti ve (Non- Immun e) <10 IU/mL React reyna (Immu ne) > or = 10 IU/mL Not Available [facility] (Lab) [address], [place], [address], 03/21/2025 14:27:08 03/17/20 25 03/17/2025 TYPE/ RH/SC REEN ABO/Rh type B POS Not Available [facility] (Lab) [address], [place], [address], 03/21/2025 14:27:08 03/17/20 25 03/17/2025 TYPE/ RH/SC REEN antibody screen NEG Not Available [facility] (Lab) [address], [place], [address], 03/21/2025 14:27:08 03/17/20 25 03/17/2025 TYPE/ RH/SC REEN exp date 2024 23:[address] [facility] (Lab) [address], [place], [address], 03/21/2025 14:27:08 03/17/20 25 03/17/2025 HEMOG LOBIN [...] s consi stent ly > 8%. <5.7% Evei l 5.7 - 6.4% Incre ased risk for diabe freda >=6.5 % Diagn ostic of diabe freda <7.0% Goal of thera py >8.0% Actio n sugge sted Not Available [facility] (Lab) [address], [place], [address], 03/21/2025 14:27:09 03/17/20 25 03/17/2025 RPR SCREE [...] ion (TP-P A) testi ng. Not Available [facility] (Lab) [address], [place], [address], 03/21/2025 14:27:09 03/17/20 25 03/17/2025 RPR SCREE N, REFLE X TITER /CONF IRMAT ION RPR titer 1:8 . none high Not Available [facility] (Lab) [address], [place], [address], 03/21/2025 14:27:09 03/17/20 25 03/17/2025 SYPHI LIS [...] nemal antib odies can remai n eleva jlius despi te prope r treat ment. RPR testi ng is recom loren d to disti nguis h betwe en treat ed and untre ated syphi lis. For addit ional infor matio n on inter preta tion of the syphi lis rever se algor ithm and resul ts, see: https ://ganesh sena [facility] s[employer]medxcom / it-mm files /Syph ilis_ Serol ogy_A lgori thm.p df ----- ----- ----- ----A DDITI ONAL INFOR SHAJI N---- ----- ----- ----- This test is inten ded to be used as a confi rmato ry test on sampl es that have been teste d by [facility] syphi lis test. Test Perfo rmed by: [facility] [place] [address], [place] [address] Lab Direc tor: Jay Manzano nn Ph.D. ; CLIA# [id number] [facility] (Lab) [address], [place], [address], 03/21/2025 14:27:10 03/29/2003/29/2025 CT/GC AND TRICH OMONA S VAGIN SILVA (RRNA ), URINE chlamydia trachomatis, PCR Negati ve negati ve Not Available [facility] (Lab) [address], [place], [address], 03/30/2025 14:21:33 03/29/20 25 03/29/2025 CT/GC AND TRICH OMONA S VAGIN SILVA (RRNA ), URINE neisseria gonorrhoeae, PCR Negati ve negati ve Not Available [facility] (Lab) [address], [place], [address], 03/30/2025 14:21:33 03/29/20 25 03/29/2025 CT/GC AND TRICH OMONA S VAGIN SILVA (RRNA ), URINE trichomonas vaginalis ribosomal RNA (rrna) Negati ve negati ve Not Available [facility] (Lab) [address], [place], [address], 03/30/2025 14:21:33 04/20/20 25 04/20/2025 HEMAT OCRIT (HCT) HCT 29.1 % (based on docume nted legal sex) 34.0-[address] [facility] (Lab) [address], [place], [address], 04/23/2025 15:25:44 04/20/20 25 04/20/2025 HEMOG LOBIN (HGB) HGB 9.3 g/dL (based on docume nted legal sex) 11.6-1 [address] [facility] (Lab) [address], [place], [address], 04/23/2025 15:25:45 04/20/2004/20/2025 HIV 1/2 ANTIG EN/AN TIBOD Y, REFLE X CONFI RMATI ON HIV antigen/anti body Nonrea ctive nonrea ctive HIV-1 antig en and HIV-1 /HIV- 2 antib odies were not detec jluis. No labor atory evide nce of HIV infec tion. Not Available [facility] (Lab) [address], [place], [address], 04/23/2025 15:25:45 04/20/20 25 04/20/2025 RPR SCREE [...] ion (TP-P A) testi ng. Not Available [facility] (Lab) [address], [place], [address], 04/23/2025 15:25:46 04/20/20 25 04/20/2025 RPR SCREE N, REFLE X TITER /CONF IRMAT ION RPR titer 1:8 . none high Not Available [facility] ([facility] [address] [facility] [place], [address], 04/23/2025 15:25:46 04/20/20 25 04/20/2025 SYPHI LIS [...] and resul ts, see: https ://ganesh sena [employer] / it-mm files /Syph ilis_ Serol ogy_A lgori thm.p df ----- ----- ----- ----A DDITI ONAL INFOR MATNOHEMY N---- ----- ----- ----- This test is inten ded to be used as a confi rmato ry test on sampl es that have been teste d by [facility] syphi lis test. Test Perfo rmed by: [facility] [place] [address] [place] [address] Lab Direc tor: Jay Manzano nn Ph.D. ; CLIA# [id number] [facility] (Lab) [address], [place], [address], 04/23/2025 15:25:46 05/27/20 25 05/27/2025 PROTE IN/CR EATIN INE RATIO , URINE creatinine, urine 123.0 mg/dL R-No refer ence range estab lishe d for this assay Not Available [facility] (Lab) [address], [place], [address], 05/28/2025 10:30:45 05/27/20 25 05/27/2025 PROTE IN/CR EATIN INE RATIO , URINE protein, urine 22 mg/dL R-No refer ence range estab lishe d for this assay Not Available [facility] (Lab) [address], [place], [address], 05/28/2025 10:30:45 05/27/20 25 05/27/2025 PROTE IN/CR [...] fican t prote inuri a. Not Available [facility] (Lab) [address], [place], [address], 05/28/2025 10:30:45 06/06/20 25 06/06/2025 CT/GC AND TRICH OMONA S VAGIN SILVA (RRNA ), URINE chlamydia trachomatis, PCR Negati ve negati ve Not Available [facility] (Lab) [address] [facility], [place], [address], 06/09/2025 16:13:50 06/06/20 25 06/06/2025 CT/GC AND TRICH OMONA S VAGIN SILVA (RRNA ), URINE neisseria gonorrhoeae, PCR Negati ve negati ve Not Available [facility] (Lab) [address], [place], [address], 06/09/2025 16:13:50 06/06/20 25 06/06/2025 CT/GC AND TRICH OMONA S VAGIN SILVA (RRNA ), URINE trichomonas vaginalis ribosomal RNA (rrna) Negati ve negati ve Not Available [facility] (Lab) [address] [facility], [place], [address], 06/09/2025 16:13:50 06/06/20 25 06/06/2025 CULTU RE: [...] t Abnor mal: No Resul ting Lab: [facility] [address] [facility] [address] Tel: CULTU RE ----- ----- ----- --- No Group B strep isola jluis at 2 days (shelia ctive broth enhan cemen t) Not Available [facility] (Lab) [address], [place], [address], 06/09/2025 16:13:50 03/17/20 25 03/17/2025 US, obste tric, 2nd or 3rd trime ster No observ ation record ed. [email or web address] [facility] [address], [place], [address], 03/17/2025 15:45:06 03/17/20 25 03/17/2025 US, obste tric, 2nd or 3rd trime ster No observ ation record ed. [email or web address] [place] [address], [place], [address], 03/17/2025 12:51:02 03/17/20 25 03/17/2025 US, obste tric, 2nd or 3rd trime ster No observ ation record ed. [email or web address] [facility] [address], [place], [address], 04/07/2025 21:57:11 03/17/20 25 03/17/2025 US, obste tric, 2nd or 3rd trime ster No observ ation record ed. [email or web address] [facility] [address], [place], [address], 03/17/2025 23:04:51 03/17/20 25 03/17/2025 US, obste tric, 2nd or 3rd trime ster No observ ation record ed. [email or web address] [facility] [address], [place], [address], 03/17/2025 15:45:46 03/17/20 25 03/17/2025 US, obste tric, 2nd or 3rd trime ster No observ ation record ed. [email or web address] [facility] [address], [place], [address], 03/18/2025 17:16:02 05/18/2005/18/2025 US, obste tric, follo w-up No observ ation record ed. [facility] [address], [place], [address], 05/18/2025 18:23:17 05/18/2005/18/2025 US, obste tric, follo w-up No observ ation record ed. [email or web address] [facility] [address], [place], [address], 05/20/2025 13:20:22 05/25/2005/25/2025 , obste tric, bioph ysica l profi le + non-s tress test No observ ation record ed. [facility] [address], [place], [address], 05/25/2025 17:34:34 05/25/20 25 05/25/2025 US, obste tric, follo w-up No observ ation record ed. [email or web address] [facility] [address], [place], [address], 05/26/2025 14:44:53 05/25/2005/25/2025 non-s tress test No observ ation record ed. [email or web address] [place] [address], [place], [address], 05/25/2025 18:39:52 05/25/20 non-s tress test No observ ation record ed. [email or web address] [facility] [address], [place], [address], 05/25/2025 17:32:07 05/30/2005/30/2025 US, obste tric, bioph ysica l profi le + non-s tress test No observ ation record ed. [email or web address] [facility] [address], [place], [address], 05/30/2025 12:42:17 05/30/2005/30/2025 US, obste tric, bioph ysica l profi le + non-s tress test No observ ation record ed. [email or web address] [facility] [address], [place], [address], 05/30/2025 17:35:43 05/30/2005/30/2025 non-s tress test No observ ation record ed. [email or web address] [facility] [address], [place], [address], 05/30/2025 13:00:42 05/30/20 non-s tress test No observ ation record ed. [email or web address] [facility] [address], [place], [address], 05/30/2025 13:02:59 06/06/2006/06/2025 US, obste tric, bioph ysica l profi le + non-s tress test No observ ation record ed. [email or web address] [place] [address], [place], [address], 06/06/2025 14:28:11 06/06/2006/06/2025 , lucretia dimas, bioph ysica l profi le + non-s tress test No observ ation record ed. [email or web address] [facility] [address], [place], [address], 06/06/2025 15:10:23 06/07/2006/07/2025 non-s tress test No observ ation record ed. [email or web address] [place] [address], [place], [address], 2025 20:27:42 06/07/20 non-s tress test No observ ation record ed. [email or web address] Not Available 2024 15:33:58 06/13/2006/13/2025 , obste tric, follo w-up No observ ation record ed. [email or web address] [facility] [address], [place], [address], 06/14/2025 10:34:08 06/13/2006/13/2025 non-s tress test No observ ation record ed. PATRICIA [place] [address], [place], [address], 06/19/2025 18:04:34 06/13/20 non-s tress test No observ ation record ed. [email or web address] [place] [address], [place], [address], 06/13/2025 18:04:44 06/13/2006/14/2025 US, obste tric, follo w-up No observ ation record ed. [email or web address] [place] [address], [place], [address], 06/14/2025 13:38:03 06/13/20 25 06/14/2025 US, obste tric, bioph ysica l profi le + non-s tress test No observ ation record ed. [email or web address] [place] [address], [place], [address], 06/14/2025 13:38:17 06/15/20 25 2025 non-s tress test No observ ation record ed. [facility] [address], [place], [address], 06/17/2025 09:42:27 06/20/2006/20/2025 US, lucretia tric, bioph ysica l profi le + non-s tress test No observ ation record ed. [email or web address] [place] [address], [place], [address], 06/20/2025 13:28:54 06/20/20 25 06/20/2025 US, obstjesús tric, follo w-up No observ ation record ed. [facility] [address], [place], [address], 06/20/2025 16:32:26 06/20/20 25 06/20/2025 non-s tress test No observ ation record ed. [email or web address] [place] [address], [place], [address], 06/20/2025 18:00:22 06/20/20 non-s tress test No observ ation record ed. [email or web address] [place] [address], [place], [address], 06/20/2025 17:57:42 06/27/20 25 06/27/2025 US, obste tric, bioph ysica l profi le No observ ation record ed. [email or web address] [facility] [address], [place], [address], 06/28/2025 11:16:29 06/27/2006/27/2025 US, obste tric, bioph ysica l profi le + non-s tress test No observ ation record ed. [facility] [address], [place], [address], 06/27/2025 18:49:37 06/27/20 25 06/27/2025 non-s tress test No observ ation record ed. [facility] [address], [place], [address], 06/27/2025 18:50:27 06/27/20 non-s tress test No observ ation record ed. [email or web address] [place] [address], [place], [address], 06/27/2025 12:29:10 Result Notes None recorded. Problems Name Problem SNOMED Code Status Onset Date Resolution Date Notes Provider Name and Address Organization Details Recorded Time Anemia 828056550 Completed Trino serrano, [facility] 4 13:00:34 Pre-ecla mpsia 685946384 Completed 37w Delivery , 2x/wk antenata l testing Trino serrano, [facility] 4 13:00:34 Group B Streptoc occus carrier [id number] 103 Completed AMP in labor Trino serrano, [facility] 4 13:00:33 Pregnanc y 39706787 Completed 202210/27/2023 Jazz serrano, [facility] 5 12:31:25 Syphilis 85650532 Completed 2022 no s/s, +fta abs- tx schedule d 06/05,, [address] [facility] 4 13:00:34 Infectio n by Analia hidalgo [id number] Completed 2022 2/2 positive - tinidazo le tx 2/5 - RONEN in 4wks Trino M[place]ton [facility] 4 13:00:34 Gonorrhe a 92138783 Completed 2022 PA sent 08/20 for Ceftriax one - RONEN NEGATIVE Trino [place] [facility] 4 13:00:34 Pregnanc y 13541469 Active [address] [facility] 5 12:31:25 Past pregnanc y history of pre-ecla mpsia 4696169837 96313 Active 2024 recommen ded ASA previous delivery PTL 36w6d 10/08/23 EDC 10/30/23 antenata l testing Juana [place] [facility] 5 11:26:48 History of syphilis [id number] 386580 Active 2024 treated in previous pregnanc y titers 05/2023 1:32 decrease d to 1:8 03/17 [facility] 11:51:07 History of chlamydi al infectio n 414764133 Active 2024 Isidro Le MD [address], [place], [address], [place] [facility] 5 12:53:43 Iron deficien cy anemia 99177409 Active 2024 hgg decrease d 03-17 to 9-3 Iron infusion order faxed 05/04 _ pending insuranc e) Juana Warner [facility], [facility] 5 11:03:51 Finding of arrangem ent of fetus 88795240 Active 2024 Transver se Isidro Le MD [address], [place], [address], [facility] 17:33:30 Problem Notes None recorded. [...] and Address Organization Details Last Updated DateTime 06/27/2025 17783.21577 g 104/70 mm[Hg] Jazz Somers [facility] 06/27/2025 11:35:18 Date Recorded Body weight Systolic And Diastolic Provider Name and Address Organization Details Last Updated DateTime 06/27/2025 70774.49567 g 104/70 mm[Hg] Christine Hickmanjagjit [facility] 06/27/2025 12:27:23 Social History Question Answer Notes LastModified by Organizat ion Details LastModified Time Tobacco Smoking Status Never Smoker [facility] 14:21:17 Are You Blind Or Do You Have Difficulty Seeing? No [email or web address] Information n ot available 10/01/2023 What Is Your Level Of Caffeine Consumption? Occasional [email or web address] Information not available 10/01/2023 How Much Tobacco Do You Chew? None Information not available 10/01/2023 In The 14 Days Before Symptom Onset, Have You Had Close Contact With A Laboratory-confirm ed COVID-19 While That Case Was Ill? No [email or web address] Information n ot available 10/01/2023 In The [...] Do You Have Serious Difficulty Hearing? No [email or web address] Information not available 10/01/2023 What Type Of Diet Are You Following? REGULAR [email or web address] Information n ot available 10/01/2023 What Is The Highest Grade Or Level Of School You Have Completed Or The Highest Degree You Have Received? SD33599-2 [email or web address] Information not available 10/01/2023 Are There Any Guns Present In Your Home? No Information not available 10/01/2023 Do You Use Protection During Sex? Usually [email or web address] Information not available 10/01/2023 Do You Use Your Seat Belt Or Car Seat Routinely? Yes [email or web address] Information not available 10/01/2023 Do You Have Smoke And Carbon Monoxide Detectors In Your Home? No [email or web address] Information not available 10/01/2023 How Much Tobacco Do You Smoke? No [email or web address] Information not available 10/01/2023 Do You Use Sunscreen Routinely? No [email or web address] Information not available 10/01/2023 Have You Used IV Drugs? No [email or web address] Information not available 10/01/2023 Do You Have Difficulty Walking Or Climbing Stairs? No [email or web address] Information not available 10/01/2023 Sex: Unknown Functional Status Question Answer Note LastModified by Organizat ion Details LastModified Time Do you use any illicit or recreational drugs? No [email or web address] Information not available 10/01/2023 What is your level of alcohol consumption? None [email or web address] Information not available 10/01/2023 Are you able to walk independently without assistance or assistive devices? YESWOREST [email or web address] Information not available 10/01/2023 Are you able to care for yourself independently? Yes [email or web address] Information not available 10/01/2023 Do you have difficulty dressing, bathing, grooming, or toileting? No [email or web address] Information not available 10/01/2023 What is your exercise level? Moderate [email or web address] Information not available 10/01/2023 Mental Status Question Answer Note LastModified by Organization D etails LastModified Time Do you feel stressed (tense, restless, nervous, or anxious, or unable to sleep at night)? [id number] [email or web address] Information not available 10/01/2023 Family History Relationship [...] ICD10 Code Diagnosis IMO Codes Diagnosis Note [id number] Mita Tavera CNM [place] [address] [address] 05/27/2025 09:25:56 05/27/2025 09:44:43 Backache 436498964 M54.9 [id number] Acute headache 148757465 R51.9 [id number] call this afternoon if no relief will try imitrex [id number] Isidro Le MD [place] [address],[place] [address] 05/30/2025 11:35:55 05/30/2025 12:10:04 care: obstetric risk 175330133 O09.293 Z3A.34 3578086 [id number] MD Clay Aragon [address],[place] [address] 05/30/2025 11:36:32 05/30/2025 13:02:53 Pre-eclampsia 400388191 O14.90 777875 [id number] MD Clay Aragon [address],[place] [address] 05/30/2025 11:36:55 05/30/2025 13:17:39 care status 585916557 Z34.83 72575325 [id number] Isidro Le MD [place] [address],[place] [address] 06/06/2025 13:30:49 06/06/2025 14:28:09 care: obstetric risk 431058073 O09.293 Z3A.35 7949064 [id number] MD Clay Aragon [address],[place] [address] 06/06/2025 13:31:14 2025 10:42:54 Past history of pre-eclampsia 4860257791 34450 Z87.59 877659 [id number] Isidro Le MD [place] [address],[place] [address] 06/06/2025 13:31:30 06/06/2025 15:34:03 care status 822999950 Z34.83 [id number] MD Clay Aragon [address],[place] [address] 06/13/2025 15:39:53 06/14/2025 09:09:52 care: obstetric risk 795746186 O09.293 Z3A.36 6735445 [id number] BLACK YUN MD [place] [address],[place] [address] 06/13/2025 15:40:02 06/14/2025 09:09:28 Past history of pre-eclampsia 9258907514 74716 Z87.59 199791 [id number] MD Clay Aragon [address],[place] [address] 06/13/2025 15:40:14 06/13/2025 17:38:16 care status 635545101 Z34.83 53003109 [id number] MD Clay Aragon [address],[place] [address] 06/20/2025 10:15:50 06/20/2025 11:10:24 care: obstetric risk 755669485 O09.293 Z3A.37 3054176 [id number] MD Clay Aragon [address],[place] [address] 06/20/2025 10:16:00 06/21/2025 08:20:28 Past history of pre-eclampsia 3920751700 10199 Z87.59 056977 [id number] MD Clay Aragon [address],[place] [address] 06/20/2025 10:16:11 06/20/2025 12:23:37 care status 254275581 Z34.83 02209710 [id number] MD Clay Aragon [address],[place] [address] 06/27/2025 09:52:18 06/27/2025 12:01:46 care: obstetric risk 418657400 O09.293 Z3A.38 8235811 [id number] Clay Mckeon [address],[place] [address] 06/27/2025 09:52:35 06/27/2025 12:29:08 Past history of pre-eclampsia 2840636193 84962 Z87.59 [id number] [id number] MD Clay Aragon [address] [address] 06/27/2025 09:52:44 06/27/2025 12:01:08 care status 464697285 Z34.83 [id number] Health Concerns Section Related Observation LastModified by Organization Detai ls LastModified Time None Recorded Concern Status LastModified by Organization Details LastModified Time None Recorded Payers Encounter Date Sequence Insurance Name Policy Number Policy Vital Covered Member ID Vital Member ID Guarantor Name 06/27/2025 1 [facility] (MEDICAID HMO) [id number] Gisela L S Bates [id number] Gisela L S Bates Notes Date Note Type Note Provider Name and Address Organization Details Recorded Time 06/27/2025 text/html Generic HPI TemplateReported by Patient Isidro Le MD [address], [place], [address], [facility] 06/27/2025 11:59:22 OBGyn Episode Ob Episode Information Episode Created Date Number of Fetuses Patient Bloodtype Patient rh Status Prepregnancy Weight lbs Domestic Partner Domestic Partner Phone Father Name Supervisor Ovens Status 03/17/20 25 1 B Positive OPEN Fetus Data First Name Last Name Admitted to NICU Weight (g) Sex Living Outcome Pediatric Complications Fetus ID Race Codes Race Delivery Type [id number] Problems Problem Notes + RPR tx spoke with [facility] confirmed pt tx previous RPR 06/05/23, 06/12, & 06/19/23 titter 1:32 decreased to 1:8 per Pat antibody can be + but titer decreasing no tx unless pt sx's rash, lesions sx's rec tx if pt sx's schedule appt for evaluation. RPT labs @ 28wks , fax all labs to health dept [phone] . 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 pt denies sx's JGBilateral double renal artery Problem Name Start Date End Date Resolution Snomed Code Not e History of syphilis 03/17/2025 [id number] treated in previous pregnancytiters 05/2023 1:32 decreased to 1:8 03/17 Iron deficiency anemia 05/04/2025 36374413 hgg decreased 7 -31 to 9-3 Iron infusion order faxed 05/04 _ pending insurance) History of chlamydial infection 03/17/2025 [id number] Past history of pre-eclampsia 03/17/2025 [id number] recommended ASAprevious delivery PTL 36w6d 10/08/23 EDC 10/30/23 testing Finding of arrangement of fetus 06/13/2025 [id number] Transverse Jerome Calculation Initial Jerome Date Initial [...] Weight in lbs Pre/Post Dialysis Refused Weight 131.971431904301 BP Diastolic BP Location Tested BP Systolic [...] Weight in lbs Pre/Post Dialysis Refused Weight 131.988575733470 BP Diastolic BP Location Tested BP Systolic [...] Type Weight in lbs Pre/Post Dialysis Refused 133.661720776835 BP Diastolic BP Location Tested BP Systolic [...] Type Weight in lbs Pre/Post Dialysis Refused 135.36217140244 BP Diastolic BP Location Tested BP Systolic [...] Type Weight in lbs Pre/Post Dialysis Refused 135.11727239327 BP Diastolic BP Location Tested BP Systolic [...] Weight in lbs Pre/Post Dialysis Refused Weight 139.62166300597 BP Diastolic BP Location Tested BP Systolic BP Type 76 L arm 112 sitting Fetus Heart Rate Present Fetus Movement A Yes Comments Flowsheet Date 05/25/2025 Solorzano Score Blood Edema Fundus Height Fundus Units Glucose Ketones Leukocytes Nitrite Labor Signs Protein Cervic Dilation Cervic Effacement Cervic Station Type Weight in lbs Pre/Post Dialysis Refused Weight 149.93930145732 BP Diastolic BP Location Tested BP Systolic [...] Weight in lbs Pre/Post Dialysis Refused Weight 138.503566284324 BP Diastolic BP Location Tested BP Systolic BP Type 78 L arm 120 sitting Fetus Heart Rate Present A 139 Fetus Movement A Yes Comments was at [place] yesterday wi th ruiz and back pain [...] Type Weight in lbs Pre/Post Dialysis Refused 139.524943740243 BP Diastolic BP Location Tested BP Systolic BP Type 74 L arm 119 sitting Fetus Heart Rate Present Fetus Movement A Yes Comments Flowsheet Date 05/30/2025 Solorzano Score Blood Edema Fundus Height Fundus Units Glucose Ketones Leukocytes Nitrite Labor Signs Protein Cervic Dilation Cervic Effacement Cervic Station Type Weight in lbs Pre/Post Dialysis Refused 139.912278875405 BP Diastolic BP Location Tested BP Systolic [...] Type Weight in lbs Pre/Post Dialysis Refused 142.421947460820 BP Diastolic BP Location Tested BP Systolic [...] Type Weight in lbs Pre/Post Dialysis Refused 144.183986791625 BP Diastolic BP Location Tested BP Systolic BP Type 65 L arm 98 sitting Fetus Heart Rate Present Fetus Movement A Yes Comments Flowsheet Date 06/13/2025 Solorzano Score Blood Edema Fundus Height Fundus Units Glucose Ketones Leukocytes Nitrite Labor Signs Protein Cervic Dilation Cervic Effacement Cervic Station Type Weight in lbs Pre/Post Dialysis Refused 144.686396784872 BP Diastolic BP Location Tested BP Systolic [...] Weight in lbs Pre/Post Dialysis Refused Weight 144.27920932180 BP Diastolic BP Location Tested BP Systolic BP Type 64 L arm 104 sitting Fetus Heart Rate Present Fetus Movement A Yes Comments Flowsheet Date 06/20/2025 Solorzano Score Blood Edema Fundus Height Fundus Units Glucose Ketones Leukocytes Nitrite Labor Signs Protein Cervic Dilation Cervic Effacement Cervic Station Type Weight in lbs Pre/Post Dialysis Refused 144.067121543451 BP Diastolic BP Location Tested BP Systolic [...] Type Weight in lbs Pre/Post Dialysis Refused 147.711452266902 BP Diastolic BP Location Tested BP Systolic BP Type 70 L arm 104 sitting Fetus Heart Rate Present Fetus Movement A Yes Comments Flowsheet Date 06/27/2025 Solorzano Score Blood Edema Fundus Height Fundus Units Glucose Ketones Leukocytes Nitrite Labor Signs Protein Cervic Dilation Cervic Effacement Cervic Station Type Weight in lbs Pre/Post Dialysis Refused 147.695766590969 BP Diastolic BP Location Tested BP Systolic [...]
--- OUTSIDE RECORDS SUMMARY | 2025-07-01 06:18 | XMS_ITS | Continuity of Care Document ---
Author Organization [facility], [facility] Address [address] [address] Assessment No assessment recorded. Plan of Treatment [...] d. Imaging non-str ess test 2024 025 [id number] [place], [address], [place], [address], 06/27/2025 12:29:08 Medication Orders None recorde d. Patient TargetsNo [...] Resul ting Lab: [facility] [address] [facility] [address] Tel: CULTU RE ----- ----- ----- --- No growt h in 1 day (dete ction level of 10,00 0 colon ies / ml.) Not Available [facility] (Lab) [address], [place], [address], 03/19/2025 07:23:20 03/17/20 25 03/17/2025 CBC W/DIF F WBC 5.0 10'3/ uL 3.5-10 .5 Not Available [facility] (Lab) [address], [place], [address], 03/21/2025 14:27:06 03/17/20 25 03/17/2025 CBC W/DIF F RBC 3.57 10'6/ uL (based on docume nted legal sex) 3.80-5 .20 low Not Available [facility] (Lab) [address], [place], [address], 03/21/2025 14:27:06 03/17/20 25 03/17/2025 CBC W/DIF F HGB 10.5 g/dL (based on docume nted legal sex) 11.6-1 5.4 low Not Available [facility] (Lab) [address], [place], [address], 03/21/2025 14:27:06 03/17/20 25 03/17/2025 CBC W/DIF F HCT 30.2 % (based on docume nted legal sex) 34.0-4 5.0 low Not Available [facility] (Lab) [address], [place], [address], 03/21/2025 14:27:06 03/17/20 25 03/17/2025 CBC W/DIF F MCV 84.6 fL 80.0-9 9.0 Not Available [facility] (Lab) [address], [place], [address], 03/21/2025 14:27:06 03/17/20 25 03/17/2025 CBC W/DIF F MCH 29.4 pg 27.0-3 4.0 Not Available [facility] (Lab) [address], [place], [address], 03/21/2025 14:27:06 03/17/20 25 03/17/2025 CBC W/DIF F MCHC 34.8 g/dL 32.0-3 5.5 Not Available [facility] (Lab) [address], [place], [address], 03/21/2025 14:27:06 03/17/20 25 03/17/2025 CBC W/DIF F RDW 13.3 % 11.0-1 5.0 Not Available [facility] (Lab) [address], [place], [address], 03/21/2025 14:27:06 03/17/20 25 03/17/2025 CBC W/DIF F plt 235 10'3/ uL 150-40 0 Not Available [facility] (Lab) [address], [place], [address], 03/21/2025 14:27:06 03/17/20 25 03/17/2025 CBC W/DIF F MPV 10.4 fL 8.8-12 .1 Not Available [facility] (Lab) [address], [place], [address], 03/21/2025 14:27:06 03/17/20 25 03/17/2025 CBC W/DIF F NRBC's 0.0 % 0.0 Not Available [facility] (Lab) [address], [place], [address], 03/21/2025 14:27:06 03/17/20 25 03/17/2025 CBC W/DIF F absolute NRBCs 0.0 10'3/ uL no refere nce range establ ished Not Available [facility] (Lab) [address], [place], [address], 03/21/2025 14:27:06 03/17/20 25 03/17/2025 CBC W/DIF F neutrophils 72.4 % 34.0-7 3.0 Not Available [facility] (Lab) [address] [place], [address], 03/21/2025 14:27:06 03/17/20 25 03/17/2025 CBC W/DIF F lymphocytes 14.4 % 15.0-5 0.0 low Not Available [facility] (Lab) [address], [place], [address], 03/21/2025 14:27:06 03/17/20 25 03/17/2025 CBC W/DIF F monocytes 6.6 % 1.0-15 .0 Not Available [facility] (Lab) [address], [place], [address], 03/21/2025 14:27:06 03/17/20 25 03/17/2025 CBC W/DIF F eosinophils 5.2 % 0.0-8. 0 Not Available [facility] (Lab) [address], [place], [address], 03/21/2025 14:27:06 03/17/20 25 03/17/2025 CBC W/DIF F basophils 0.4 % 0.0-2. 0 Not Available [facility] (Lab) [address], [place], [address], 03/21/2025 14:27:06 03/17/20 25 03/17/2025 CBC W/DIF [...] separ ately if prese nt. Not Available [facility] (Lab) [address], [place], [address], 03/21/2025 14:27:06 03/17/20 25 03/17/2025 CBC W/DIF F absolute neutrophils 3.6 10'3/ uL 1.5-8. 0 Not Available [facility] (Lab) [address], [place], [address], 03/21/2025 14:27:06 03/17/20 25 03/17/2025 CBC W/DIF F absolute lymphocytes 0.7 10'3/ uL 1.0-4. 0 low Not Available [facility] (Lab) [address], [place], [address], 03/21/2025 14:27:06 03/17/20 25 03/17/2025 CBC W/DIF F absolute monocytes 0.3 10'3/ uL 0.2-1. 0 Not Available [facility] (Lab) [address], [place], [address], 03/21/2025 14:27:06 03/17/20 25 03/17/2025 CBC W/DIF F absolute eosinophils 0.3 10'3/ uL 0.0-0. 6 Not Available [facility] (Lab) [address], [place], [address], 03/21/2025 14:27:06 03/17/20 25 03/17/2025 CBC W/DIF F absolute basophils 0.0 10'3/ uL 0.0-0. 3 Not Available [facility] (Lab) [address], [place], [address], 03/21/2025 14:27:06 03/17/20 25 03/17/2025 CBC W/DIF [...] bhand book. nm.or g/gen derx Not Available [facility] (Lab) [address], [place], [address], 03/21/2025 14:27:06 03/17/2003/17/2025 HIV 1/2 ANTIG EN/AN TIBOD Y, REFLE X CONFI RMATI ON HIV antigen/anti body Nonrea ctive nonrea ctive HIV-1 antig en and HIV-1 /HIV- 2 antib odies were not detec jluis. No labor atory evide nce of HIV infec tion. Not Available [facility] (Lab) [address], [place], [address], 03/21/2025 14:27:06 03/17/20 25 03/17/2025 HEPAT ITIS B SURFA CE ANTIG EN hepatitis B surface antigen Non-re active non-re active This assay was perfo rmed using [facility] [employer] ratio n reage nts and test kits. Value s obtai gayla with other assay metho ds or kits canno t be used inter lee eably . Not Available [facility] (Lab) [address], [place], [address], 03/21/2025 14:27:07 03/17/20 25 03/17/2025 HEPAT ITIS C ANTIB ELOISE SCREE N, REFLE X TO CONFI RMATI ON hepatitis C antibody Non-re active non-re active Antib odies to HCV Not Detec jluis, does not exclu de the possi bilit y of expos ure to HCV. Not Available [facility] (Lab) [address] [place], [address], 03/21/2025 14:27:07 03/17/20 25 03/17/2025 RUBEL LA IGG ANTIB ELOISE, QUANT rubella antibodies, IgG Reacti ve reacti ve Not Available [facility] (Lab) [address], [place], [address], 03/21/2025 14:27:08 03/17/20 25 03/17/2025 RUBEL LA IGG ANTIB ELOISE, QUANT rubella antibodies, IgG quant 14.2 IU/mL >=10 Non-r eacti ve (Non- Immun e) <10 IU/mL React reyna (Immu ne) > or = 10 IU/mL Not Available [facility] (Lab) [address], [place], [address], 03/21/2025 14:27:08 03/17/20 25 03/17/2025 TYPE/ RH/SC REEN ABO/Rh type B POS Not Available [facility] (Lab) [address], [place], [address], 03/21/2025 14:27:08 03/17/20 25 03/17/2025 TYPE/ RH/SC REEN antibody screen NEG Not Available [facility] (Lab) [address], [place], [address], 03/21/2025 14:27:08 03/17/20 25 03/17/2025 TYPE/ RH/SC REEN exp date 2024 23:59 Not Available [facility] (Lab) [address], [place], [address], 03/21/2025 14:27:08 03/17/20 25 03/17/2025 HEMOG LOBIN [...] >8.0% Actio n sugge sted Not Available [facility] (Lab) [address], [place], [address], 03/21/2025 14:27:09 03/17/20 25 03/17/2025 RPR SCREE [...] ion (TP-P A) testi ng. Not Available [facility] (Lab) [address], [place], [address], 03/21/2025 14:27:09 03/17/20 25 03/17/2025 RPR SCREE N, REFLE X TITER /CONF IRMAT ION RPR titer 1:8 . none high Not Available [facility] (Lab) [address], [place], [address], 03/21/2025 14:27:09 03/17/20 25 03/17/2025 SYPHI LIS [...] of the syphi lis rever se algor [facility] and resul ts, see: https ://ganesh sena [employer] / it-mm files /Syph ilis_ Serol ogy_A lgori thm.p df ----- ----- ----- ----A DDITI ONAL INFOR MATNOHEMY N---- ----- ----- ----- This test is inten ded to be used as a confi rmato ry test on sampl es that have been teste d by [facility] syphi lis test. Test Perfo rmed by: [facility] [place] [address], [place] [address] Lab Direc tor: Jay Manzano nn Ph.D. ; CLIA# [id number] Not Available [facility] (Lab) [address], [place], [address], 03/21/2025 14:27:10 03/29/2003/29/2025 CT/GC AND TRICH OMONA S VAGIN SILVA (RRNA ), URINE chlamydia trachomatis, PCR Negati ve negati ve Not Available [facility] (Lab) [address] [place], [address], 03/30/2025 14:21:33 03/29/2003/29/2025 CT/GC AND TRICH OMONA S VAGIN SILVA (RRNA ), URINE neisseria gonorrhoeae, PCR Negati ve negati ve Not Available [facility] (Lab) [address] [place], [address], 03/30/2025 14:21:33 03/29/20 25 03/29/2025 CT/GC AND TRICH OMONA S VAGIN SILVA (RRNA ), URINE trichomonas vaginalis ribosomal RNA (rrna) Negati ve negati ve Not Available [facility] (Lab) [address] [place], [address], 03/30/2025 14:21:33 04/20/2004/2004/20/2025 HEMAT OCRIT (HCT) HCT 29.1 % (based on docume nted legal sex) 34.0-4 5.0 low Not Available [facility] (Lab) [address], [place], [address], 04/23/2025 15:25:44 04/20/20 25 04/20/2025 HEMOG LOBIN (HGB) HGB 9.3 g/dL (based on docume nted legal sex) 11.6-1 5.4 low Not Available [facility] (Lab) [address], [place], [address], 04/23/2025 15:25:45 04/20/20 25 04/20/2025 HIV 1/2 ANTIG EN/AN TIBOD Y, REFLE X CONFI RMATI ON HIV antigen/anti body Nonrea ctive nonrea ctive HIV-1 antig en and HIV-1 /HIV- 2 antib odies were not detec jluis. No labor atory evide nce of HIV infec tion. Not Available [facility] (Lab) [address], [place], [address], 04/23/2025 15:25:45 04/20/20 25 04/20/2025 RPR SCREE [...] ion (TP-P A) testi ng. Not Available [facility] (Lab) [address], [place], [address], 04/23/2025 15:25:46 04/20/20 25 04/20/2025 RPR SCREE N, REFLE X TITER /CONF IRMAT ION RPR titer 1:8 . none high Not Available [facility] (Lab) [address], [place], [address], 04/23/2025 15:25:46 04/20/20 25 04/20/2025 SYPHI LIS [...] of the syphi lis rever se algor [facility] and resul ts, see: https ://ganesh sena [employer] / it-mm files /Syph ilis_ Serol ogy_A lgori thm.p df ----- ----- ----- ----A DDITI ONAL INFOR MATNOHEMY N---- ----- ----- ----- This test is inten ded to be used as a confi rmato ry test on sampl es that have been teste d by [facility] syphi lis test. Test Perfo rmed by: [facility] [place] [address] [place] [address] Lab Direc tor: Jay Manzano nn Ph.D. ; CLIA# [id number] Not Available [facility] (Lab) [address], [place], [address], 04/23/2025 15:25:46 05/27/2005/27/2025 PROTE IN/CR EATIN INE RATIO , URINE creatinine, urine 123.0 mg/dL R-No refer ence range estab lishe d for this assay Not Available [facility] (Lab) [address], [place], [address], 05/28/2025 10:30:45 05/27/20 25 05/27/2025 PROTE IN/CR EATIN INE RATIO , URINE protein, urine 22 mg/dL R-No refer ence range estab lishe d for this assay Not Available [facility] (Lab) [address], [place], [address], 05/28/2025 10:30:45 05/27/20 25 05/27/2025 PROTE IN/CR [...] fican t prote inuri a. Not Available [facility] (Lab) [address], [place], [address], 05/28/2025 10:30:45 06/06/20 25 06/06/2025 CT/GC AND TRICH OMONA S VAGIN SILVA (RRNA ), URINE chlamydia trachomatis, PCR Negati ve negati ve Not Available [facility] (Lab) [address], [place], [address], 06/09/2025 16:13:50 06/06/20 25 06/06/2025 CT/GC AND TRICH OMONA S VAGIN SILVA (RRNA ), URINE neisseria gonorrhoeae, PCR Negati ve negati ve Not Available [facility] (Lab) [address], [place], [address], 06/09/2025 16:13:50 06/06/20 25 06/06/2025 CT/GC AND TRICH OMONA S VAGIN SILVA (RRNA ), URINE trichomonas vaginalis ribosomal RNA (rrna) Negati ve negati ve Not Available [facility] (Lab) [address], [place], [address], 06/09/2025 16:13:50 06/06/20 25 06/06/2025 CULTU RE: [...] Resul ting Lab: [facility] [address] [facility] [address] Tel: CULTU RE ----- ----- ----- --- No Group B strep isola jluis at 2 days (shelia ctive broth enhan cemen t) Not Available [facility] (Lab) [address], [place], [address], 06/09/2025 16:13:50 03/17/20 25 03/17/2025 US, obste tric, 2nd or 3rd trime ster No observ ation record ed. [email or web address] [address], [place], [address], 03/17/2025 15:45:06 03/17/20 25 03/17/2025 US, obste tric, 2nd or 3rd trime ster No observ ation record ed. [email or web address] [place] [address], [place], [address], 03/17/2025 12:51:02 03/17/20 25 03/17/2025 US, obste tric, 2nd or 3rd trime ster No observ ation record ed. [email or web address] [address], [place], [address], 04/07/2025 21:57:11 03/17/20 25 03/17/2025 US, obste tric, 2nd or 3rd trime ster No observ ation record ed. [email or web address] [address], [place], [address], 03/17/2025 23:04:51 03/17/20 25 03/17/2025 US, obste tric, 2nd or 3rd trime ster No observ ation record ed. [email or web address] [address], [place], [address], 03/17/2025 15:45:46 03/17/20 25 03/17/2025 US, obste tric, 2nd or 3rd trime ster No observ ation record ed. [email or web address] [address], [place], [address], 03/18/2025 17:16:02 05/18/2005/18/2025 , obste tric, follo w-up No observ ation record ed. [facility] [address], [place], [address], 05/18/2025 18:23:17 05/18/2005/18/2025 US, obste tric, follo w-up No observ ation record ed. [email or web address] [address], [place], [address], 05/20/2025 13:20:22 05/25/2005/25/2025 , obste tric, bioph ysica l profi le + non-s tress test No observ ation record ed. [facility] [address], [place], [address], 05/25/2025 17:34:34 05/25/20 25 05/25/2025 US, obste tric, follo w-up No observ ation record ed. [email or web address] [address], [place], [address], 05/26/2025 14:44:53 05/25/2005/25/2025 non-s tress test No observ ation record ed. [email or web address] [place] [address], [place], [address], 05/25/2025 18:39:52 05/25/20 non-s tress test No observ ation record ed. [email or web address] [place] [address], [place], [address], 05/25/2025 17:32:07 05/30/2005/30/2025 US, obste tric, bioph ysica l profi le + non-s tress test No observ ation record ed. [email or web address] [place] [address], [place], [address], 05/30/2025 12:42:17 05/30/2005/30/2025 US, obste tric, bioph ysica l profi le + non-s tress test No observ ation record ed. [email or web address] [address] [place] [address] [address], [place], [address], 05/30/2025 17:35:43 05/30/2005/30/2025 non-s tress test No observ ation record ed. [email or web address] [place] [address], [place], [address], 05/30/2025 13:00:42 05/30/20 non-s tress test No observ ation record ed. [email or web address] [place] [address], [place], [address], 05/30/2025 13:02:59 06/06/2006/06/2025 US, obste tric, bioph ysica l profi le + non-s tress test No observ ation record ed. [email or web address] [place] [address], [place], [address], 06/06/2025 14:28:11 06/06/2006/06/2025 US, lucretia tric, bioph ysica l profi le + non-s tress test No observ ation record ed. [email or web address] [address], [place], [address], 06/06/2025 15:10:23 06/07/2006/07/2025 non-s tress test No observ ation record ed. [email or web address] [place] [address], [place], [address], 2025 20:27:42 06/07/20 non-s tress test No observ ation record ed. [email or web address] Not Available 2024 15:33:58 06/13/2006/13/2025 US, obste tric, follo w-up No observ ation record ed. [email or web address] [address], [place], [address], 06/14/2025 10:34:08 06/13/2006/13/2025 non-s tress test No observ ation record ed. [email or web address] [place] [address], [place], [address], 06/19/2025 18:04:34 06/13/20 non-s tress test No observ ation record ed. [email or web address] [place] [address], [place], [address], 06/13/2025 18:04:44 06/13/2006/14/2025 US, obste tric, follo w-up No observ ation record ed. [email or web address] [place] [address], [place], [address], 06/14/2025 13:38:03 06/13/20 25 06/14/2025 US, obste tric, bioph ysica l profi le + non-s tress test No observ ation record ed. [email or web address] [place] [address], [place], [address], 06/14/2025 13:38:17 06/15/20 25 2025 non-s tress test No observ ation record ed. [facility] [address], [place], [address], 06/17/2025 09:42:27 06/20/2006/20/2025 US, obste tric, bioph ysica l profi le + non-s tress test No observ ation record ed. [email or web address] [place] [address], [place], [address], 06/20/2025 13:28:54 06/20/20 25 06/20/2025 US, obste tric, follo w-up No observ ation record ed. [email or web address] [address], [place], [address], 06/20/2025 16:32:26 06/20/20 25 06/20/2025 non-s tress test No observ ation record ed. [email or web address] [place] [address], [place], [address], 06/20/2025 18:00:22 06/20/20 non-s tress test No observ ation record ed. [email or web address] [place] [address], [place], [address], 06/20/2025 17:57:42 06/27/20 25 06/27/2025 US, obste tric, bioph ysica l profi le No observ ation record ed. [email or web address] [address] [place] [address] [address], [place], [address], 06/28/2025 11:16:29 06/27/2006/27/2025 US, obste tric, bioph ysica l profi le + non-s tress test No observ ation record ed. [facility] [address], [place], [address], 06/27/2025 18:49:37 06/27/2006/27/2025 non-s tress test No observ ation record ed. [facility] [address], [place], [address], 06/27/2025 18:50:27 06/27/20 non-s tress test No observ ation record ed. [email or web address] [place] [address] [address], [place], [address], 06/27/2025 12:29:10 Result Notes None recorded. Problems Name Problem SNOMED Code Status Onset Date Resolution Date Notes Provider Name and Address Organization Details Recorded Time Anemia 400390242 Completed Trino serrano, [facility] 4 13:00:34 Pre-ecla mpsia 437286668 Completed 37w Delivery , 2x/wk antenata l testing Trino [facility] 4 13:00:34 Group B Streptoc occus carrier [id number] 103 Completed AMP in labor Trino serrano [facility] 4 13:00:33 Pregnanc y 12976305 Completed 202210/27/2023 Jazz serrano, [facility] 5 12:31:25 Syphilis 75155601 Completed 2022 no s/s, +fta abs- tx schedule d 06/05,, 2 Trino [facility], [facility] 4 13:00:34 Infectio n by Analia hidalgo [id number] Completed 2022 2/2 positive - tinidazo le tx 2/5 - RONEN in 4wks Trino M[place]ton [facility] 4 13:00:34 Gonorrhe a 80303187 Completed 2022 PA sent 08/20 for Ceftriax one - RONEN NEGATIVE Trino Moulton [facility] 4 13:00:34 Pregnanc y 71204713 Active 2024 Jazz Yonis [facility], [facility] 5 12:31:25 Past pregnanc y history of pre-ecla mpsia [id number] 06470 Active 2024 recommen ded ASA previous delivery PTL 36w6d 10/08/23 EDC 10/30/23 antenata l testing Juana Warner [facility] 5 11:26:48 History of syphilis 2033720025 826804 Active 2024 treated in previous pregnanc y titers 05/2023 1:32 decrease d to 1:8 03/17 [facility] 11:51:07 History of chlamydi al infectio n 946628894 Active 2024 Isidro Le MD [address], [place], [address], [facility] 5 12:53:43 Iron deficien cy anemia 01499778 Active 2024 hgg decrease d 03-17 to 9-3 Iron infusion order faxed 05/04 _ pending insuranc e) Juana Timmy serrano, [facility] 5 11:03:51 Finding of arrangem ent of fetus 10134997 Active 2024 Transver se Isidro Le MD [address], [place], [address], [facility] 17:33:30 Problem Notes None recorded. Medical [...] Address Organization Details Last Updated DateTime 06/27/2025 51890.50934 g 104/70 mm[Hg] Jazz Somers [facility] 06/27/2025 11:35:18 Date Recorded Body weight Systolic And Diastolic Provider Name and Address Organization Details Last Updated DateTime 06/27/2025 55870.05819 g 104/70 mm[Hg] Christine Hickmanjagjit [facility] 06/27/2025 12:27:23 Social History Question Answer Notes LastModified by Organizat ion Details LastModified Time Tobacco Smoking Status Never Smoker [facility]queline [facility] 03/07/2023 14:21:17 Are You Blind Or Do You Have Difficulty Seeing? No [email or web address] Information n ot available 10/01/2023 What Is Your Level Of Caffeine Consumption? Occasional [email or web address] Information not available 10/01/2023 How Much Tobacco Do You Chew? None [email or web address] Information not available 10/01/2023 In The 14 Days Before Symptom Onset, Have You Had Close Contact With A Laboratory-confirm ed COVID-19 While That Case Was Ill? No [email or web address] Information n ot available 10/01/2023 In The 14 Days Before Symptom Onset, Have You Had Close Contact With A Person Who Is Under Investigation For COVID-19 While That Person Was Ill? No [email or web address] Information not available 10/01/2023 Have You Been To An Area Known To Be High Risk For COVID-19? No [email or web address] Information not available 10/01/2023 Are You Deaf Or Do You Have Serious Difficulty Hearing? No Information not available 10/01/2023 What Type Of Diet Are You Following? REGULAR [email or web address] Information n ot available 10/01/2023 What Is The Highest Grade Or Level Of School You Have Completed Or The Highest Degree You Have Received? [id number] [email or web address] Information not available 10/01/2023 Are There Any Guns Present In Your Home? No [email or web address] Information not available 10/01/2023 Do You Use Protection During Sex? Usually [email or web address] Information not available 10/01/2023 Do You Use Your Seat Belt Or Car Seat Routinely? Yes [email or web address] Information not available 10/01/2023 Do You Have Smoke And Carbon Monoxide Detectors In Your Home? No [email or web address] Information not available 10/01/2023 How Much Tobacco Do You Smoke? No [email or web address] Information not available 10/01/2023 Do You Use Sunscreen Routinely? No [email or web address] Information not available 10/01/2023 Have You Used IV Drugs? No [email or web address] Information not available 10/01/2023 Do You Have Difficulty Walking Or Climbing Stairs? No [email or web address] Information not available 10/01/2023 Sex: Unknown Functional Status Question Answer Note LastModified by Organizat ion Details LastModified Time Do you use any illicit or recreational drugs? No [email or web address] Information not available 10/01/2023 What is your level of alcohol consumption? None Information not available 10/01/2023 Are you able to walk independently without assistance or assistive devices? YESWOREST [email or web address] Information not available 10/01/2023 Are you able to care for yourself independently? Yes [email or web address] Information not available 10/01/2023 Do you have difficulty dressing, bathing, grooming, or toileting? No [email or web address] Information not available 10/01/2023 What is your exercise level? Moderate [email or web address] Information not available 10/01/2023 Mental Status Question Answer Note LastModified by Organization D etails LastModified Time Do you feel stressed (tense, restless, nervous, or anxious, or unable to sleep at night)? [id number] [email or web address] Information not available 10/01/2023 Family History Relationship [...] ICD10 Code Diagnosis IMO Codes Diagnosis [facility] [id number] [facility] [address] [address] 05/27/2025 09:25:56 05/27/2025 09:44:43 Backache 581588384 M54.9 [id number] Acute headache 557237928 R51.9 [id number] call this afternoon if no relief will try imitrex [id number] MD Clay Aragon [address],[place] [address] 05/30/2025 11:35:55 05/30/2025 12:10:04 care: obstetric risk 624421988 O09.293 Z3A.34 6227667 [id number] MD Clay Aragon [address],[place] [address] 05/30/2025 11:36:32 05/30/2025 13:02:53 Pre-eclampsia 340107153 O14.90 [id number] MD Clay Aragon [address],[place] [address] 05/30/2025 11:36:55 05/30/2025 13:17:39 care status 494013372 Z34.83 93043304 [id number] MD Clay Aragon [address],[place] [address] 06/06/2025 13:30:49 06/06/2025 14:28:09 care: obstetric risk 963613741 O09.293 Z3A.35 1640806 [id number] MD Clay Aragon [address],[place] [address] 06/06/2025 13:31:14 2025 10:42:54 Past history of pre-eclampsia [id number] 87807 Z87.59 019669 [id number] MD Clay Aragon [address],[place] [address] 06/06/2025 13:31:30 06/06/2025 15:34:03 care status 619754110 Z34.83 94428581 [id number] MD Clay Aragon [address],[place] [address] 06/13/2025 15:39:53 06/14/2025 09:09:52 care: obstetric risk 459858136 O09.293 Z3A.36 [id number] BLACK YUN MD [place] [address],[place] [address] 06/13/2025 15:40:02 06/14/2025 09:09:28 Past history of pre-eclampsia 0071508492 45574 Z87.59 370224 [id number] MD Clay Aragon [address],[place] [address] 06/13/2025 15:40:14 06/13/2025 17:38:16 care status 177980223 Z34.83 [id number] MD Clay Aragon [address],[place] [address] 06/20/2025 10:15:50 06/20/2025 11:10:24 care: obstetric risk 596180701 O09.293 Z3A.37 6207408 [id number] MD Clay Aragon [address],[place] [address] 06/20/2025 10:16:00 06/21/2025 08:20:28 Past history of pre-eclampsia 9670891926 10932 Z87.59 560105 [id number] MD Clay Aragon [address],[place] [address] 06/20/2025 10:16:11 06/20/2025 12:23:37 care status 913215066 Z34.83 68861383 [id number] MD Clay Aragon [address],[place] [address] 06/27/2025 09:52:18 06/27/2025 12:01:46 care: obstetric risk 087768945 O09.293 Z3A.38 6018357 [id number] Clay Mckeon [address],[place] [address] 06/27/2025 09:52:35 06/27/2025 12:29:08 Past history of pre-eclampsia 7027871787 52727 Z87.59 [id number] [id number] MD Clay Aragon [address] [address] 06/27/2025 09:52:44 06/27/2025 12:01:08 care status 044775663 Z34.83 [id number] Health Concerns Section Related Observation LastModified by Organization Detai ls LastModified Time None Recorded Concern Status LastModified by Organization Details LastModified Time None Recorded Payers Encounter Date Sequence Insurance Name Policy Number Policy Vital Covered Member ID Vital Member ID Guarantor Name 06/27/2025 1 [facility] (MEDICAID HMO) [id number] Gisela L S Btaes [id number] Gisela L S Bates Notes Date Note Type Note Provider Name and Address Organization Details Recorded Time 06/27/2025 text/html Generic HPI TemplateReported by Patient Isidro Le MD [address], [place], [address], [facility] 06/27/2025 11:59:22 OBGyn Episode Ob Episode Information Episode Created Date Number of Fetuses Patient Bloodtype Patient rh Status Prepregnancy Weight lbs Domestic Partner Domestic Partner Phone Father Name Reed Polisher Status 03/17/20 25 1 B Positive OPEN Fetus Data First Name Last Name Admitted to NICU Weight (g) Sex Living Outcome Pediatric Complications Fetus ID Race Codes Race Delivery Type [id number] Problems Problem Notes + RPR tx spoke with [facility] confirmed pt tx previous RPR 06/05/23, 06/12, & 06/19/23 titter 1:32 decreased to 1:8 per Pat antibody can be + but titer decreasing no tx unless pt sx's rash, lesions sx's rec tx if pt sx's schedule appt for evaluation. RPT labs @ 28wks , fax all labs to health dept [phone] . 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 03/31 pt denies sx's JGBilateral double renal artery Problem Name Start Date End Date Resolution Snomed Code Not e History of syphilis 03/17/2025 [id number] treated in previous pregnancytiters 05/2023 1:32 decreased to 1:8 03/17 Iron deficiency anemia 05/04/2025 [id number] hgg decreased to 9-3 Iron infusion order faxed 05/04 _ pending insurance) History of chlamydial infection 03/17/2025 [id number] Past history of pre-eclampsia 03/17/2025 [id number] recommended ASAprevious delivery PTL 36w6d 10/08/23 EDC 10/30/23 testing Finding of arrangement of fetus 06/13/2025 [id number] Transverse Jerome Calculation Initial Jerome Date Initial [...] Weight in lbs Pre/Post Dialysis Refused Weight 131.307294105807 BP Diastolic BP Location Tested BP Systolic [...] Weight in lbs Pre/Post Dialysis Refused Weight 131.090856819003 BP Diastolic BP Location Tested BP Systolic [...] Type Weight in lbs Pre/Post Dialysis Refused 133.752871023695 BP Diastolic BP Location Tested BP Systolic [...] Type Weight in lbs Pre/Post Dialysis Refused 135.50590080283 BP Diastolic BP Location Tested BP Systolic [...] Type Weight in lbs Pre/Post Dialysis Refused 135.45639418673 BP Diastolic BP Location Tested BP Systolic [...] Weight in lbs Pre/Post Dialysis Refused Weight 139.03557716631 BP Diastolic BP Location Tested BP Systolic BP Type 76 L arm 112 sitting Fetus Heart Rate Present Fetus Movement A Yes Comments Flowsheet Date 05/25/2025 Solorzano Score Blood Edema Fundus Height Fundus Units Glucose Ketones Leukocytes Nitrite Labor Signs Protein Cervic Dilation Cervic Effacement Cervic Station Type Weight in lbs Pre/Post Dialysis Refused Weight 149.84421663733 BP Diastolic BP Location Tested BP Systolic [...] Weight in lbs Pre/Post Dialysis Refused Weight 138.846854843055 BP Diastolic BP Location Tested BP Systolic BP Type 78 L arm 120 sitting Fetus Heart Rate Present A 139 Fetus Movement A Yes Comments was at [place] yesterday wi th ruiz and back pain [...] Type Weight in lbs Pre/Post Dialysis Refused 139.165263608620 BP Diastolic BP Location Tested BP Systolic BP Type 74 L arm 119 sitting Fetus Heart Rate Present Fetus Movement A Yes Comments Flowsheet Date 05/30/2025 Solorzano Score Blood Edema Fundus Height Fundus Units Glucose Ketones Leukocytes Nitrite Labor Signs Protein Cervic Dilation Cervic Effacement Cervic Station Type Weight in lbs Pre/Post Dialysis Refused 139.233682300954 BP Diastolic BP Location Tested BP Systolic [...] Type Weight in lbs Pre/Post Dialysis Refused 142.394449879779 BP Diastolic BP Location Tested BP Systolic [...] Type Weight in lbs Pre/Post Dialysis Refused 144.766152053396 BP Diastolic BP Location Tested BP Systolic BP Type 65 L arm 98 sitting Fetus Heart Rate Present Fetus Movement A Yes Comments Flowsheet Date 06/13/2025 Solorzano Score Blood Edema Fundus Height Fundus Units Glucose Ketones Leukocytes Nitrite Labor Signs Protein Cervic Dilation Cervic Effacement Cervic Station Type Weight in lbs Pre/Post Dialysis Refused 144.787806511088 BP Diastolic BP Location Tested BP Systolic [...] Weight in lbs Pre/Post Dialysis Refused Weight 144.98842903666 BP Diastolic BP Location Tested BP Systolic BP Type 64 L arm 104 sitting Fetus Heart Rate Present Fetus Movement A Yes Comments Flowsheet Date 06/20/2025 Solorzano Score Blood Edema Fundus Height Fundus Units Glucose Ketones Leukocytes Nitrite Labor Signs Protein Cervic Dilation Cervic Effacement Cervic Station Type Weight in lbs Pre/Post Dialysis Refused 144.019758268645 BP Diastolic BP Location Tested BP Systolic [...] Type Weight in lbs Pre/Post Dialysis Refused 147.817608068482 BP Diastolic BP Location Tested BP Systolic BP Type 70 L arm 104 sitting Fetus Heart Rate Present Fetus Movement A Yes Comments Flowsheet Date 06/27/2025 Solorzano Score Blood Edema Fundus Height Fundus Units Glucose Ketones Leukocytes Nitrite Labor Signs Protein Cervic Dilation Cervic Effacement Cervic Station Type Weight in lbs Pre/Post Dialysis Refused 147.360722617897 BP Diastolic BP Location Tested BP Systolic [...]
--- OUTSIDE RECORDS SUMMARY | 2025-07-01 06:18 | XMS_ITS | Continuity of Care Document ---
Author Organization [facility] Address [address] [place] [address] Assessment Encounter Date Assessment Date Assessment LastModified by Organization Details LastModified Time 05/30/2025 05/30/2025 Patient is ___weeks . Discussed plan. [email or web address] Not available 05/30/2025 12:36:14 Plan of Treatment Reminders Order Date Submit [...] LAB [address] [facility] [place] [address] Tel: CULTU RE ----- ----- ----- --- No growt h in 1 day (dete ction level of 10,00 0 colon ies / ml.) Not Available [facility] (Lab) [address] [facility], [place], [address], 03/19/2025 07:23:20 03/17/20 25 03/17/2025 CBC W/DIF F WBC 5.0 10'3/ uL 3.5-10 .5 Not Available [facility] (Lab) [address] [facility], [place], [address], 03/21/2025 14:27:06 03/17/20 25 03/17/2025 CBC W/DIF F RBC 3.57 10'6/ uL (based on docume nted legal sex) 3.80-5 .20 low Not Available [facility] (Lab) [address] [facility], [place], [address], 03/21/2025 14:27:06 03/17/20 25 03/17/2025 CBC W/DIF F HGB 10.5 g/dL (based on docume nted legal sex) 11.6-1 5.4 low Not Available [facility] (Lab) [address] [facility], [place], [address], 03/21/2025 14:27:06 03/17/20 25 03/17/2025 CBC W/DIF F HCT 30.2 % (based on docume nted legal sex) 34.0-4 5.0 low Not Available [facility] (Lab) [address] [facility], [place], [address], 03/21/2025 14:27:06 03/17/20 25 03/17/2025 CBC W/DIF F MCV 84.6 fL 80.0-9 9.0 Not Available [facility] (Lab) [address] [facility], [place], [address], 03/21/2025 14:27:06 03/17/20 25 03/17/2025 CBC W/DIF F MCH 29.4 pg 27.0-3 4.0 Not Available [facility] (Lab) [address] [facility], [place], [address], 03/21/2025 14:27:06 03/17/20 25 03/17/2025 CBC W/DIF F MCHC 34.8 g/dL 32.0-3 5.5 Not Available [facility] (Lab) [address] [facility], [place], [address], 03/21/2025 14:27:06 03/17/20 25 03/17/2025 CBC W/DIF F RDW 13.3 % 11.0-1 5.0 Not Available [facility] (Lab) [address] [facility], [place], [address], 03/21/2025 14:27:06 03/17/20 25 03/17/2025 CBC W/DIF F plt 235 10'3/ uL 150-40 0 Not Available [facility] (Lab) [address] [facility], [place], [address], 03/21/2025 14:27:06 03/17/20 25 03/17/2025 CBC W/DIF F MPV 10.4 fL 8.8-12 .1 Not Available [facility] (Lab) [address] [facility], [place], [address], 03/21/2025 14:27:06 03/17/20 25 03/17/2025 CBC W/DIF F NRBC's 0.0 % 0.0 Not Available [facility] (Lab) [address] [facility], [place], [address], 03/21/2025 14:27:06 03/17/20 25 03/17/2025 CBC W/DIF F absolute NRBCs 0.0 10'3/ uL no refere nce range establ ished Not Available [facility] (Lab) [address] [facility], [place], [address], 03/21/2025 14:27:06 03/17/20 25 03/17/2025 CBC W/DIF F neutrophils 72.4 % 34.0-7 3.0 Not Available [facility] (Lab) [address] [facility], [place], [address], 03/21/2025 14:27:06 03/17/20 25 03/17/2025 CBC W/DIF F lymphocytes 14.4 % 15.0-5 0.0 low Not Available [facility] (Lab) [address] [facility], [place], [address], 03/21/2025 14:27:06 03/17/20 25 03/17/2025 CBC W/DIF F monocytes 6.6 % 1.0-15 .0 Not Available [facility] (Lab) [address] [facility], [place], [address], 03/21/2025 14:27:06 03/17/20 25 03/17/2025 CBC W/DIF F eosinophils 5.2 % 0.0-8. 0 Not Available [facility] (Lab) [address] [facility], [place], [address], 03/21/2025 14:27:06 03/17/20 25 03/17/2025 CBC W/DIF F basophils 0.4 % 0.0-2. 0 Not Available [facility] (Lab) [address] [facility], [place], [address], 03/21/2025 14:27:06 03/17/2003/17/2025 CBC W/DIF F immature granulocytes 1.0 % no define d refere nce range Immat ure Granu locyt es (IG) repre sents autom ated enume ratio n of Metam yeloc ytes, Myelo cytes and Promy elocy freda when IG is < 5%. Blast s are not inclu ded in IG and repor jluis separ ately if prese nt. Not Available [facility] (Lab) [address] [facility], [place], [address], 03/21/2025 14:27:06 03/17/20 25 03/17/2025 CBC W/DIF F absolute neutrophils 3.6 10'3/ uL 1.5-8. 0 Not Available [facility] (Lab) [address] [facility], [place], [address], 03/21/2025 14:27:06 03/17/20 25 03/17/2025 CBC W/DIF F absolute lymphocytes 0.7 10'3/ uL 1.0-4. 0 low Not Available [facility] (Lab) [address] [facility], [place], [address], 03/21/2025 14:27:06 03/17/20 25 03/17/2025 CBC W/DIF F absolute monocytes 0.3 10'3/ uL 0.2-1. 0 Not Available [facility] (Lab) [address] [facility], [place], [address], 03/21/2025 14:27:06 03/17/20 25 03/17/2025 CBC W/DIF F absolute eosinophils 0.3 10'3/ uL 0.0-0. 6 Not Available [facility] (Lab) [address] [facility], [place], [address], 03/21/2025 14:27:06 03/17/20 25 03/17/2025 CBC W/DIF F absolute basophils 0.0 10'3/ uL 0.0-0. 3 Not Available [facility] (Lab) [address] [facility], [place], [address], 03/21/2025 14:27:06 03/17/20 25 03/17/2025 CBC W/DIF [...] grover book. nm.or g/gen derx Not Available [facility] (Lab) [address], [place], [address], 03/21/2025 14:27:06 03/17/2003/17/2025 HIV 1/2 ANTIG EN/AN TIBOD Y, REFLE X CONFI RMATI ON HIV antigen/anti body Nonrea ctive nonrea ctive HIV-1 antig en and HIV-1 /HIV- 2 antib odies were not detec jluis. No labor atory evide nce of HIV infec tion. Not Available [facility] (Lab) [address], [place], [address], 03/21/2025 14:27:06 03/17/2003/17/2025 HEPAT ITIS B SURFA CE ANTIG EN hepatitis B surface antigen Non-re active non-re active This assay was perfo rmed using [facility] [employer] ratio n reage nts and test kits. Value s obtai gayla with other assay metho ds or kits canno t be used inter lee eably . Not Available [facility] (Lab) [address], [place], [address], 03/21/2025 14:27:07 03/17/20 25 03/17/2025 HEPAT ITIS C ANTIB ELOISE SCREE N, REFLE X TO CONFI RMATI ON hepatitis C antibody Non-re active non-re active Antib odies to HCV Not Detec jluis, does not exclu de the possi bilit y of expos ure to HCV. Not Available [facility] (Lab) [address], [place], [address], 03/21/2025 14:27:07 03/17/20 25 03/17/2025 RUBEL LA IGG ANTIB ELOISE, QUANT rubella antibodies, IgG Reacti ve reacti ve Not Available [facility] (Lab) [address], [place], [address], 03/21/2025 14:27:08 03/17/20 25 03/17/2025 RUBEL LA IGG ANTIB ELOISE, QUANT rubella antibodies, IgG quant 14.2 IU/mL >=10 Non-r eacti ve (Non- Immun e) <10 IU/mL React reyna (Immu ne) > or = 10 IU/mL Not Available [facility] (Lab) [address] [facility], [place], [address], 03/21/2025 14:27:08 03/17/20 25 03/17/2025 TYPE/ RH/SC REEN ABO/Rh type B POS Not Available [facility] (Lab) [address] [facility], [place], [address], 03/21/2025 14:27:08 03/17/20 25 03/17/2025 TYPE/ RH/SC REEN antibody screen NEG Not Available [facility] (Lab) [address] [facility], [place], [address], 03/21/2025 14:27:08 03/17/20 25 03/17/2025 TYPE/ RH/SC REEN exp date 2024 23:59 Not Available [facility] (Lab) [address] [facility], [place], [address], 03/21/2025 14:27:08 03/17/20 25 03/17/2025 HEMOG LOBIN [...] >8.0% Actio n sugge sted Not Available [facility] (Lab) [address] [facility], [place], [address], 03/21/2025 14:27:09 03/17/20 25 03/17/2025 RPR SCREE [...] ion (TP-P A) testi ng. Not Available [facility] (Lab) [address] [facility], [place], [address], 03/21/2025 14:27:09 03/17/20 25 03/17/2025 RPR SCREE N, REFLE X TITER /CONF IRMAT ION RPR titer 1:8 . none high Not Available [facility] (Lab) [address] [facility], [place], [address], 03/21/2025 14:27:09 03/17/20 25 03/17/2025 SYPHI LIS [...] and resul ts, see: https ://ganesh sena [email or web address] iclab sHeath Robinson Museumcom / it-mm files /Syph ilis_ Serol ogy_A lgori thm.p df ----- ----- ----- ----A DDITI ONAL INFOR SHAJI N---- ----- ----- ----- This test is inten ded to be used as a confi rmato ry test on sampl es that have been teste d by [facility] syphi lis test. Test Perfo rmed by: [facility] - [place] [address], [place] [address] Lab Direc tor: Jay Mnazano nn Ph.D. ; CLIA# [id number] Not Available [facility] (Lab) [address] [facility], [place], [address], 03/21/2025 14:27:10 03/29/2003/29/2025 CT/GC AND TRICH OMONA S VAGIN SILVA (RRNA ), URINE chlamydia trachomatis, PCR Negati ve negati ve Not Available [facility] (Lab) [address] [facility], [place], [address], 03/30/2025 14:21:33 03/29/20 25 03/29/2025 CT/GC AND TRICH OMONA S VAGIN SILVA (RRNA ), URINE neisseria gonorrhoeae, PCR Negati ve negati ve Not Available [facility] (Lab) [address] [facility], [place], [address], 03/30/2025 14:21:33 03/29/20 25 03/29/2025 CT/GC AND TRICH OMONA S VAGIN SILVA (RRNA ), URINE trichomonas vaginalis ribosomal RNA (rrna) Negati ve negati ve Not Available [facility] (Lab) [address] [facility], [place], [address], 03/30/2025 14:21:33 04/20/20 25 04/20/2025 HEMAT OCRIT (HCT) HCT 29.1 % (based on docume nted legal sex) 34.0-4 5.0 low Not Available [facility] (Lab) [address] [facility], [place], [address], 04/23/2025 15:25:44 04/20/20 25 04/20/2025 HEMOG LOBIN (HGB) HGB 9.3 g/dL (based on docume nted legal sex) 11.6-1 5.4 low Not Available [facility] (Lab) [address] [facility], [place], [address], 04/23/2025 15:25:45 04/20/2004/20/2025 HIV 1/2 ANTIG EN/AN TIBOD Y, REFLE X CONFI RMATI ON HIV antigen/anti body Nonrea ctive nonrea ctive HIV-1 antig en and HIV-1 /HIV- 2 antib odies were not detec jluis. No labor atory evide nce of HIV infec tion. Not Available [facility] (Lab) [address] [facility], [place], [address], 04/23/2025 15:25:45 04/20/20 25 04/20/2025 RPR SCREE [...] ion (TP-P A) testi ng. Not Available [facility] (Lab) [address] [facility], [place], [address], 04/23/2025 15:25:46 04/20/20 25 04/20/2025 RPR SCREE N, REFLE X TITER /CONF IRMAT ION RPR titer 1:8 . none high Not Available [facility] (Lab) [address] [place], [address], 04/23/2025 15:25:46 04/20/20 25 04/20/2025 SYPHI LIS [...] and resul ts, see: https ://ganesh sena [employer] / it-mm files /Syph ilis_ Serol ogy_A lgori thm.p df ----- ----- ----- ----A DDITI ONAL INFOR MATNOHEMY N---- ----- ----- ----- This test is inten ded to be used as a confi rmato ry test on sampl es that have been teste d by [facility] syphi lis test. Test Perfo rmed by: [facility] - [place] [address] [place] [address] Lab Direc tor: Jay Manzano nn Ph.D. ; CLIA# [id number] Not Available [facility] (Lab) [address] [facility], [place], [address], 04/23/2025 15:25:46 05/27/20 25 05/27/2025 PROTE IN/CR EATIN INE RATIO , URINE creatinine, urine 123.0 mg/dL R-No refer ence range estab lishe d for this assay Not Available [facility] (Lab) [address], [place], [address], 05/28/2025 10:30:45 05/27/20 25 05/27/2025 PROTE IN/CR EATIN INE RATIO , URINE protein, urine 22 mg/dL R-No refer ence range estab lishe d for this assay Not Available [facility] (Lab) [address] [facility], [place], [address], 05/28/2025 10:30:45 05/27/20 25 05/27/2025 PROTE IN/CR [...] fican t prote inuri a. Not Available [facility] (Lab) [address] [facility], [place], [address], 05/28/2025 10:30:45 03/17/20 25 03/17/2025 US, obste tric, 2nd or 3rd trime ster No observ ation record ed. [email or web address] [facility] [address], [place], [address], 03/17/2025 15:45:06 03/17/20 25 03/17/2025 US, obste tric, 2nd or 3rd trime ster No observ ation record ed. [email or web address] [place] [address], [place], [address], 03/17/2025 12:51:02 03/17/20 25 03/17/2025 US, obste tric, 2nd or 3rd trime ster No observ ation record ed. [email or web address] [facility] [address], [place], [address], 04/07/2025 21:57:11 03/17/20 25 03/17/2025 US, obste tric, 2nd or 3rd trime ster No observ ation record ed. [facility] [address], [place], [address], 03/17/2025 23:04:51 03/17/20 25 03/17/2025 US, obste tric, 2nd or 3rd trime ster No observ ation record ed. [email or web address] [facility] [address], [place], [address], 03/17/2025 15:45:46 03/17/20 25 03/17/2025 US, obste tric, 2nd or 3rd trime ster No observ ation record ed. [facility] [address], [place], [address], 03/18/2025 17:16:02 05/18/2005/18/2025 , obste tric, follo w-up No observ ation record ed. [facility] [address], [place], [address], 05/18/2025 18:23:17 05/18/2005/18/2025 , obste tric, follo w-up No observ ation record ed. [email or web address] [facility] [address], [place], [address], 05/20/2025 13:20:22 05/25/2005/25/2025 , obste tric, bioph ysica l profi le + non-s tress test No observ ation record ed. [facility] [address], [place], [address], 05/25/2025 17:34:34 05/25/2005/25/2025 US, obste tric, follo w-up No observ ation record ed. [email or web address] [facility] [address], [place], [address], 05/26/2025 14:44:53 05/25/2005/25/2025 non-s tress test No observ ation record ed. [email or web address] [facility] [address], [place], [address], 05/25/2025 18:39:52 05/25/20 non-s tress test No observ ation record ed. [email or web address] [facility] [address], [place], [address], 05/25/2025 17:32:07 05/30/2005/30/2025 US, obste tric, bioph ysica l profi le + non-s tress test No observ ation record ed. [email or web address] [facility] [address], [place], [address], 05/30/2025 12:42:17 05/30/2005/30/2025 US, obste tric, bioph ysica l profi le + non-s tress test No observ ation record ed. [email or web address] [facility] [address] [place] [address] [address], [place], [address], 05/30/2025 17:35:43 05/30/2005/30/2025 non-s tress test No observ ation record ed. [email or web address] [facility] [address], [place], [address], 05/30/2025 13:00:42 05/30/20 non-s tress test No observ ation record ed. [email or web address] [facility] [address], [place], [address], 05/30/2025 13:02:59 06/06/2006/06/2025 US, obste tric, bioph ysica l profi le + non-s tress test No observ ation record ed. [email or web address] [facility] [address], [place], [address], 06/06/2025 14:28:11 06/06/2006/06/2025 , lucretia dimas, bioph ysica l profi le + non-s tress test No observ ation record ed. [email or web address] [facility] [address], [place], [address], 06/06/2025 15:10:23 06/07/2006/07/2025 non-s tress test No observ ation record ed. [email or web address] [facility] [address], [place], [address], 2025 20:27:42 06/07/20 non-s tress test No observ ation record ed. [email or web address] Not Available 2024 15:33:58 06/13/2006/13/2025 , obste tric, follo w-up No observ ation record ed. [email or web address] [facility] [address], [place], [address], 06/14/2025 10:34:08 06/13/2006/13/2025 non-s tress test No observ ation record ed. PATRICIA [facility] [address], [place], [address], 06/19/2025 18:04:34 06/13/20 non-s tress test No observ ation record ed. [email or web address] [facility] [address], [place], [address], 06/13/2025 18:04:44 06/13/2006/14/2025 , obste tric, follo w-up No observ ation record ed. [email or web address] [facility] [address], [place], [address], 06/14/2025 13:38:03 06/13/20 25 06/14/2025 US, obste tric, bioph ysica l profi le + non-s tress test No observ ation record ed. [email or web address] [facility] [address], [place], [address], 06/14/2025 13:38:17 06/15/20 25 2025 non-s tress test No observ ation record ed. [facility] [address], [place], [address], 06/17/2025 09:42:27 06/20/2006/20/2025 US, obstjesús tric, bioph ysica l profi le + non-s tress test No observ ation record ed. [email or web address] [facility] [address], [place], [address], 06/20/2025 13:28:54 06/20/20 25 06/20/2025 US, obste tric, follo w-up No observ ation record ed. [email or web address] [facility] [address], [place], [address], 06/20/2025 16:32:26 06/20/20 25 06/20/2025 non-s tress test No observ ation record ed. [email or web address] [facility] [address], [place], [address], 06/20/2025 18:00:22 06/20/20 non-s tress test No observ ation record ed. [email or web address] [facility] [address], [place], [address], 06/20/2025 17:57:42 06/27/20 25 06/27/2025 US, obste tric, bioph ysica l profi le No observ ation record ed. [email or web address] [facility] [address], [place], [address], 06/28/2025 11:16:29 06/27/2006/27/2025 US, obste tric, bioph ysica l profi le + non-s tress test No observ ation record ed. [facility] [address], [place], [address], 06/27/2025 18:49:37 06/27/2006/27/2025 non-s tress test No observ ation record ed. [facility] [address], [place], [address], 06/27/2025 18:50:27 06/27/20 non-s tress test No observ ation record ed. [email or web address] [facility] [address], [place], [address], 06/27/2025 12:29:10 Result Notes None recorded. Problems Name Problem SNOMED Code Status Onset Date Resolution Date Notes Provider Name and Address Organization Details Recorded Time Anemia 095549849 Completed Trino Moulton [facility], [facility] 4 13:00:34 Pre-ecla mpsia 168518943 Completed 37w Delivery , 2x/wk antenata l testing Trino Moulton [facility] 4 13:00:34 Group B Streptoc occus carrier 6785676235 103 Completed AMP in labor Trino Moulton [facility] 4 13:00:33 Pregnanc y 16180670 Completed 202210/27/20[facility] 12:31:25 Syphilis 87326296 Completed 2022 no s/s, +fta abs- tx schedule d 06/05,, 2 Trino Moulton [facility] 4 13:00:34 Infectio n by Trichomo gwen [id number] Completed 2022 2/2 positive - tinidazo le tx 2/5 - RONEN in 4wks Trino Moulton [facility] 4 13:00:34 Gonorrhe a 95745929 Completed 2022 PA sent 08/20 for Ceftriax one - RONEN NEGATIVE Trino Moulton [facility] 4 13:00:34 Pregnanc y 64270464 Active 2024 Jazz Somers [facility] 5 12:31:25 Past pregnanc y history of pre-ecla mpsia 0059159202 57060 Active 2024 recommen ded ASA previous delivery PTL 36w6d 10/08/23 EDC 10/30/23 antenata l testing Juana Warner [facility] 5 11:26:48 History of syphilis 9607365161 100984 Active 2024 treated in previous pregnanc y titers 05/2023 1:32 decrease d to 1:8 03/17 Juana Warner [facility] 5 11:51:07 History of chlamydi al infectio n 937476700 Active 2024 Isidro Le MD [address], [place], [address], [place] [facility] 5 12:53:43 Iron deficien cy anemia 05279789 Active 2024 hgg decrease d 03-17 to 9-3 Iron infusion order faxed 05/04 _ pending insuranc e) Juana Warner [facility] 5 11:03:51 Finding of arrangem ent of fetus 39264797 Active 2024 Criss Le MD [address], [place], [address], [place] - [facility] 17:33:30 Problem Notes None recorded. Medical [...] Address Organization Details Last Updated DateTime 05/30/2025 91400.339 43 g 03329.339 43 g 119/74 mm[Hg] 119/74 mm[Hg] Jazz Somers [facility] 05/30/2025 12:59:27 Social History Question Answer Notes LastModified by Organizat ion Details LastModified Time Tobacco Smoking Status Never Smoker Jacqueline Dawson maggie, [facility] 03/07/2023 14:21:17 Are You Blind Or Do You Have Difficulty Seeing? No [email or web address] Information n ot available 10/01/2023 What Is Your Level Of Caffeine Consumption? Occasional [email or web address] Information not available 10/01/2023 How Much Tobacco Do You Chew? None [email or web address] Information not available 10/01/2023 In The 14 Days Before Symptom Onset, Have You Had Close Contact With A Laboratory-confirm ed COVID-19 While That Case Was Ill? No [email or web address] Information n ot available 10/01/2023 In The 14 Days Before Symptom Onset, Have You Had Close Contact With A Person Who Is Under Investigation For COVID-19 While That Person Was Ill? No [email or web address] Information not available 10/01/2023 Have You Been To An Area Known To Be High Risk For COVID-19? No [email or web address] Information not available 10/01/2023 Are You Deaf Or Do You Have Serious Difficulty Hearing? No [email or web address] Information not available 10/01/2023 What Type Of Diet Are You Following? REGULAR [email or web address] Information n ot available 10/01/2023 What Is The Highest Grade Or Level Of School You Have Completed Or The Highest Degree You Have Received? [id number] [email or web address] Information not available 10/01/2023 Are There Any Guns Present In Your Home? No [email or web address] Information not available 10/01/2023 Do You Use Protection During Sex? Usually [email or web address] Information not available 10/01/2023 Do You Use Your Seat Belt Or Car Seat Routinely? Yes [email or web address] Information not available 10/01/2023 Do You Have Smoke And Carbon Monoxide Detectors In Your Home? No [email or web address] Information not available 10/01/2023 How Much Tobacco Do You Smoke? No [email or web address] Information not available 10/01/2023 Do You Use Sunscreen Routinely? No [email or web address] Information not available 10/01/2023 Have You Used IV Drugs? No [email or web address] Information not available 10/01/2023 Do You Have Difficulty Walking Or Climbing Stairs? No [email or web address] Information not available 10/01/2023 Sex: Unknown Functional Status Question Answer Note LastModified by Organizat ion Details LastModified Time Do you use any illicit or recreational drugs? No [email or web address] Information not available 10/01/2023 What is your level of alcohol consumption? None [email or web address] Information not available 10/01/2023 Are you able to walk independently without assistance or assistive devices? YESWOREST [email or web address] Information not available 10/01/2023 Are you able to care for yourself independently? Yes [email or web address] Information not available 10/01/2023 Do you have difficulty dressing, bathing, grooming, or toileting? No [email or web address] Information not available 10/01/2023 What is your exercise level? Moderate [email or web address] Information not available 10/01/2023 Mental Status Question Answer Note LastModified by Organization D etails LastModified Time Do you feel stressed (tense, restless, nervous, or anxious, or unable to sleep at night)? [id number] [email or web address] Information not available 10/01/2023 Family History Relationship [...] ICD10 Code Diagnosis IMO Codes Diagnosis Note [id number] Isidro Le MD [facility] [address] [address] 05/05/2025 16:07:26 05/05/2025 17:26:18 care status [id number] Z34.83 [id number] Isidro Le MD [facility] [address],[place] [address] 05/18/2025 15:16:07 05/18/2025 15:56:40 care: obstetric risk [id number] O09.293 Z3A.32 [id number] Isidro Le MD [facility] [address],[place] [address] 05/18/2025 15:17:46 05/18/2025 16:51:15 care status [id number] Z34.83 [id number] Isidro Le MD [facility] [address],[place] [address] 05/25/2025 15:01:48 05/25/2025 15:34:08 care: obstetric risk [id number] O09.293 O09.299 Z3A.33 [id number] MD Clay Aragon [address],[place] [address] 05/25/2025 15:07:02 05/25/2025 17:32:49 Past history of pre-eclampsia [id number] Z87.59 [id number] Isidro Le MD [facility] [address],[place] [address] 05/25/2025 15:07:21 05/25/2025 17:10:12 care status [id number] Z34.83 [id number] Mita Tavera [facility] [address],[place] [address] 05/27/2025 09:25:56 05/27/2025 09:44:43 Backache [id number] M54.9 [id number] Acute headache 585708417 R51.9 [id number] call this afternoon if no relief will try imitrex [id number] Isidro Le MD [facility] [address],[place] [address] 05/30/2025 11:35:55 05/30/2025 12:10:04 care: obstetric risk [id number] O09.293 Z3A.34 [id number] MD Clay Aragon [address],[place] [address] 05/30/2025 11:36:32 05/30/2025 13:02:53 Pre-eclampsia [id number] O14.90 [id number] Isidro Le MD [facility] [address] [address] 05/30/2025 11:36:55 05/30/2025 13:17:39 care status [id number] Z34.83 [id number] Health Concerns Section Related Observation LastModified by Organization Detai ls LastModified Time None Recorded Concern Status LastModified by Organization Details LastModified Time None Recorded Payers Encounter Date Sequence Insurance Name Policy Number Policy Vital Covered Member ID Vital Member ID Guarantor Name 05/30/2025 1 [place] [facility] Gisela Fitzgeraldver [id number] Gisela Bates Notes Date Note Type Note Provider Name and Address Organization Details Recorded Time 05/30/2025 text/html Generic HPI TemplateReported by Patient Isidro Le MD [address], [place], [address], [facility] 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 RPT labs @ 28wks , fax all labs to health dept [phone] . 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 WE[employer]HER 03/31 pt denies sx's JGBilateral double renal artery Problem Name Start Date End Date Resolution Snomed Code Not e History of syphilis 03/17/2025 [id number] treated in previous pregnancytiters 05/2023 1:32 decreased to 1:8 03/17 Iron deficiency anemia 05/04/2025 [id number] hgg decreased 7 -31 to 9-3 Iron infusion order faxed 05/04 _ pending insurance) History of chlamydial infection 03/17/2025 [id number] Past history of pre-eclampsia 03/17/2025 [id number] recommended ASAprevious delivery PTL 36w6d 10/08/23 EDC 10/30/23 testing Finding of arrangement of fetus 06/13/2025 [id number] Transverse Jerome Calculation Initial Jerome Date Initial [...] Weight in lbs Pre/Post Dialysis Refused Weight 131.681351521106 BP Diastolic BP Location Tested BP Systolic [...] Weight in lbs Pre/Post Dialysis Refused Weight 131.428412743620 BP Diastolic BP Location Tested BP Systolic [...] Type Weight in lbs Pre/Post Dialysis Refused 133.627106140829 BP Diastolic BP Location Tested BP Systolic [...] Type Weight in lbs Pre/Post Dialysis Refused 135.87742298306 BP Diastolic BP Location Tested BP Systolic [...] Type Weight in lbs Pre/Post Dialysis Refused 135.47263314812 BP Diastolic BP Location Tested BP Systolic [...] Weight in lbs Pre/Post Dialysis Refused Weight 139.22437932842 BP Diastolic BP Location Tested BP Systolic BP Type 76 L arm 112 sitting Fetus Heart Rate Present Fetus Movement A Yes Comments Flowsheet Date 05/25/2025 Solorzano Score Blood Edema Fundus Height Fundus Units Glucose Ketones Leukocytes Nitrite Labor Signs Protein Cervic Dilation Cervic Effacement Cervic Station Type Weight in lbs Pre/Post Dialysis Refused Weight 149.43650836146 BP Diastolic BP Location Tested BP Systolic [...] Weight in lbs Pre/Post Dialysis Refused Weight 138.289368381688 BP Diastolic BP Location Tested BP Systolic BP Type 78 L arm 120 sitting Fetus Heart Rate Present A 139 Fetus Movement A Yes Comments was at [facility] yesterday wi th ruiz and back pain [...] Type Weight in lbs Pre/Post Dialysis Refused 139.503762386651 BP Diastolic BP Location Tested BP Systolic BP Type 74 L arm 119 sitting Fetus Heart Rate Present Fetus Movement A Yes Comments Flowsheet Date 05/30/2025 Solorzano Score Blood Edema Fundus Height Fundus Units Glucose Ketones Leukocytes Nitrite Labor Signs Protein Cervic Dilation Cervic Effacement Cervic Station Type Weight in lbs Pre/Post Dialysis Refused 139.467370872754 BP Diastolic BP Location Tested BP Systolic [...] Type Weight in lbs Pre/Post Dialysis Refused 142.197501187515 BP Diastolic BP Location Tested BP Systolic [...] Type Weight in lbs Pre/Post Dialysis Refused 144.962016639182 BP Diastolic BP Location Tested BP Systolic BP Type 65 L arm 98 sitting Fetus Heart Rate Present Fetus Movement A Yes Comments Flowsheet Date 06/13/2025 Solorzano Score Blood Edema Fundus Height Fundus Units Glucose Ketones Leukocytes Nitrite Labor Signs Protein Cervic Dilation Cervic Effacement Cervic Station Type Weight in lbs Pre/Post Dialysis Refused 144.896801684500 BP Diastolic BP Location Tested BP Systolic [...] Weight in lbs Pre/Post Dialysis Refused Weight 144.85607146370 BP Diastolic BP Location Tested BP Systolic BP Type 64 L arm 104 sitting Fetus Heart Rate Present Fetus Movement A Yes Comments Flowsheet Date 06/20/2025 Solorzano Score Blood Edema Fundus Height Fundus Units Glucose Ketones Leukocytes Nitrite Labor Signs Protein Cervic Dilation Cervic Effacement Cervic Station Type Weight in lbs Pre/Post Dialysis Refused 144.102383844863 BP Diastolic BP Location Tested BP Systolic [...] Type Weight in lbs Pre/Post Dialysis Refused 147.667273252802 BP Diastolic BP Location Tested BP Systolic BP Type 70 L arm 104 sitting Fetus Heart Rate Present Fetus Movement A Yes Comments Flowsheet Date 06/27/2025 Solorzano Score Blood Edema Fundus Height Fundus Units Glucose Ketones Leukocytes Nitrite Labor Signs Protein Cervic Dilation Cervic Effacement Cervic Station Type Weight in lbs Pre/Post Dialysis Refused 147.165434402512 BP Diastolic BP Location Tested BP Systolic [...]
--- OUTSIDE RECORDS SUMMARY | 2025-07-01 06:18 | XMS_ITS | Continuity of Care Document ---
Author Organization [facility] [place] [facility] Address [address] [place] [address] [place] [address] Assessment No assessment recorded. Plan of Treatment [...] recorde d. Surgeries None recorde d. Imaging US, obstetr ic, biophys ical profile + non-str ess test 2024 025 [email or web address] [facility] [address], [place], [address], 06/06/2025 15:21:42 Medication Orders None recorde d. Patient TargetsNo targets recorded. Patient InstructionsNo instructions recorded. Reason for Referral None Reported. Results Created Date Observation Date Name Description Value Unit Range Abnormal Flag Note LastModifiedBy Organization Detail LastModifiedTime 03/17/20 25 03/17/2025 CULTU RE: URINE result report SEE RESULT S BELOW Test: Cultu re: Urine Speci men Sourc e: Urine Voide d Speci men Type: Urine Speci men Date: 2024 1305 Resul t Date: 025 0618 Resul t Statu s: Final resul t Abnor mal: No Resul ting Lab: [facility] [address] [facility] [address] Tel: CULTU RE ----- ----- ----- --- No growt h in 1 day (dete ction level of 10,00 0 colon ies / ml.) Not Available [facility] (Lab) [address] [facility], [place], [address], 03/19/2025 07:23:20 03/17/2003/17/2025 CBC W/DIF F WBC 5.0 10'3/ uL 3.5-10 .5 Not Available [facility] (Lab) [address] [facility], [place], [address], 03/21/2025 14:27:06 03/17/20 25 03/17/2025 CBC W/DIF F RBC 3.57 10'6/ uL (based on docume nted legal sex) 3.80-5 .20 low Not Available [facility] (Lab) [address] [facility], [place], [address], 03/21/2025 14:27:06 03/17/20 25 03/17/2025 CBC W/DIF F HGB 10.5 g/dL (based on docume nted legal sex) 11.6-1 5.4 low Not Available [facility] (Lab) [address] [place], [address], 03/21/2025 14:27:06 03/17/20 25 03/17/2025 CBC W/DIF F HCT 30.2 % (based on docume nted legal sex) 34.0-4 5.0 low Not Available [facility] (Lab) [address] [facility], [place], [address], 03/21/2025 14:27:06 03/17/20 25 03/17/2025 CBC W/DIF F MCV 84.6 fL 80.0-9 9.0 Not Available [facility] (Lab) [address], [place], [address], 03/21/2025 14:27:06 03/17/20 25 03/17/2025 CBC W/DIF F MCH 29.4 pg 27.0-3 4.0 Not Available [facility] (Lab) [address], [place], [address], 03/21/2025 14:27:06 03/17/20 25 03/17/2025 CBC W/DIF F MCHC 34.8 g/dL 32.0-3 5.5 Not Available [facility] (Lab) [address], [place], [address], 03/21/2025 14:27:06 03/17/20 25 03/17/2025 CBC W/DIF F RDW 13.3 % 11.0-1 5.0 Not Available [facility] (Lab) [address], [place], [address], 03/21/2025 14:27:06 03/17/20 25 03/17/2025 CBC W/DIF F plt 235 10'3/ uL 150-40 0 Not Available [facility] (Lab) [address], [place], [address], 03/21/2025 14:27:06 03/17/20 25 03/17/2025 CBC W/DIF F MPV 10.4 fL 8.8-12 .1 Not Available [facility] (Lab) [address] [facility], [place], [address], 03/21/2025 14:27:06 03/17/20 25 03/17/2025 CBC W/DIF F NRBC's 0.0 % 0.0 Not Available [facility] (Lab) [address] [place], [address], 03/21/2025 14:27:06 03/17/20 25 03/17/2025 CBC W/DIF F absolute NRBCs 0.0 10'3/ uL no refere nce range establ ished Not Available [facility] (Lab) [address] [facility], [place], [address], 03/21/2025 14:27:06 03/17/20 25 03/17/2025 CBC W/DIF F neutrophils 72.4 % 34.0-7 3.0 Not Available [facility] (Lab) [address], [place], [address], 03/21/2025 14:27:06 03/17/20 25 03/17/2025 CBC W/DIF F lymphocytes 14.4 % 15.0-5 0.0 low Not Available [facility] (Lab) [address] [facility], [place], [address], 03/21/2025 14:27:06 03/17/20 25 03/17/2025 CBC W/DIF F monocytes 6.6 % 1.0-15 .0 Not Available [facility] (Lab) [address] [facility], [place], [address], 03/21/2025 14:27:06 03/17/20 25 03/17/2025 CBC W/DIF F eosinophils 5.2 % 0.0-8. 0 Not Available [facility] (Lab) [address] [place], [address], 03/21/2025 14:27:06 03/17/20 25 03/17/2025 CBC W/DIF F basophils 0.4 % 0.0-2. 0 Not Available [facility] (Lab) [address] [place], [address], 03/21/2025 14:27:06 03/17/20 25 03/17/2025 CBC W/DIF [...] separ ately if prese nt. Not Available [facility] (Lab) [address] [facility], [place], [address], 03/21/2025 14:27:06 03/17/20 25 03/17/2025 CBC W/DIF F absolute neutrophils 3.6 10'3/ uL 1.5-8. 0 Not Available [facility] (Lab) [address] [facility], [place], [address], 03/21/2025 14:27:06 03/17/20 25 03/17/2025 CBC W/DIF F absolute lymphocytes 0.7 10'3/ uL 1.0-4. 0 low Not Available [facility] (Lab) [address], [place], [address], 03/21/2025 14:27:06 03/17/20 25 03/17/2025 CBC W/DIF F absolute monocytes 0.3 10'3/ uL 0.2-1. 0 Not Available [facility] (Lab) [address], [place], [address], 03/21/2025 14:27:06 03/17/20 25 03/17/2025 CBC W/DIF F absolute eosinophils 0.3 10'3/ uL 0.0-0. 6 Not Available [facility] (Lab) [address], [place], [address], 03/21/2025 14:27:06 03/17/20 25 03/17/2025 CBC W/DIF F absolute basophils 0.0 10'3/ uL 0.0-0. 3 Not Available [facility] (Lab) [address] [facility], [place], [address], 03/21/2025 14:27:06 03/17/20 25 03/17/2025 CBC W/DIF [...] bhand book. nm.or g/gen derx Not Available [facility] (Lab) [address], [place], [address], 03/21/2025 14:27:06 03/17/20 25 03/17/2025 HIV 1/2 ANTIG EN/AN TIBOD Y, REFLE X CONFI RMATI ON HIV antigen/anti body Nonrea ctive nonrea ctive HIV-1 antig en and HIV-1 /HIV- 2 antib odies were not detec jluis. No labor atory evide nce of HIV infec tion. Not Available [facility] (Lab) [address], [place], [address], 03/21/2025 14:27:06 03/17/2003/17/2025 HEPAT ITIS B SURFA CE ANTIG EN hepatitis B surface antigen Non-re active non-re active This assay was perfo rmed using [facility] [employer] ratio n reage nts and test kits. Value s obtai gayla with other assay metho ds or kits canno t be used inter lee eably . Not Available [facility] (Lab) [address], [place], [address], 03/21/2025 14:27:07 03/17/20 25 03/17/2025 HEPAT ITIS C ANTIB ELOISE SCREE N, REFLE X TO CONFI RMATI ON hepatitis C antibody Non-re active non-re active Antib odies to HCV Not Detec jluis, does not exclu de the possi bilit y of expos ure to HCV. Not Available [facility] (Lab) [address], [place], [address], 03/21/2025 14:27:07 03/17/20 25 03/17/2025 RUBEL LA IGG ANTIB ELOISE, QUANT rubella antibodies, IgG Reacti ve reacti ve Not Available [facility] (Lab) [address] [facility], [place], [address], 03/21/2025 14:27:08 03/17/20 25 03/17/2025 RUBEL LA IGG ANTIB ELOISE, QUANT rubella antibodies, IgG quant 14.2 IU/mL >=10 Non-r eacti ve (Non- Immun e) <10 IU/mL React reyna (Immu ne) > or = 10 IU/mL Not Available [facility] (Lab) [address] [facility], [place], [address], 03/21/2025 14:27:08 03/17/20 25 03/17/2025 TYPE/ RH/SC REEN ABO/Rh type B POS Not Available [facility] (Lab) [address], [place], [address], 03/21/2025 14:27:08 03/17/20 25 03/17/2025 TYPE/ RH/SC REEN antibody screen NEG Not Available [facility] (Lab) [address] [facility], [place], [address], 03/21/2025 14:27:08 03/17/20 25 03/17/2025 TYPE/ RH/SC REEN exp date 2024 23:59 Not Available [facility] (Lab) [address] [facility], [place], [address], 03/21/2025 14:27:08 03/17/20 25 03/17/2025 HEMOG LOBIN A1C hemoglobin A1C 4.5 % 4.0-5. 6 The Ameri can [employer]abe freda [employer] iatio n recom mends that a prima ry goal of thera bairon waldrop d be a HBA1C of < 7% and that physi ciaamerico waldrop d reeva luate the treat ment regim en in patie nts with HBA1C value s consi stent ly > 8%. <5.7% Evie l 5.7 - 6.4% Incre ased risk for diabe freda >=6.5 % Diagn ostic of diabe freda <7.0% Goal of thera py >8.0% Actio n sugge sted Not Available [facility] (Lab) [address] [facility], [place], [address], 03/21/2025 14:27:09 03/17/20 25 03/17/2025 RPR SCREE [...] ion (TP-P A) testi ng. Not Available [facility] (Lab) [address] [facility], [place], [address], 03/21/2025 14:27:09 03/17/20 25 03/17/2025 RPR SCREE N, REFLE X TITER /CONF IRMAT ION RPR titer 1:8 . none high Not Available [facility] (Lab) [address] [facility], [place], [address], 03/21/2025 14:27:09 03/17/20 25 03/17/2025 SYPHI LIS [...] and resul ts, see: https ://ganesh sena Whois / it-mm files /Syph ilis_ Serol ogy_A lgori thm.p df ----- ----- ----- ----A DDITI ONAL INFOR MATIO N---- ----- ----- ----- This test is inten ded to be used as a confi rmato ry test on sampl es that have been teste d by [facility] syphi lis test. Test Perfo rmed by: [facility] [place] [address], [place] [address] Lab Direc tor: Jay Manzano nn Ph.D. ; CLIA# [id number] Not Available [facility] (Lab) [address] [facility], [place], [address], 03/21/2025 14:27:10 03/29/20 25 03/29/2025 CT/GC AND TRICH OMONA S VAGIN SILVA (RRNA ), URINE chlamydia trachomatis, PCR Negati ve negati ve Not Available [facility] (Lab) [address] [facility], [place], [address], 03/30/2025 14:21:33 03/29/20 25 03/29/2025 CT/GC AND TRICH OMONA S VAGIN SILVA (RRNA ), URINE neisseria gonorrhoeae, PCR Negati ve negati ve Not Available [facility] (Lab) [address] [facility], [place], [address], 03/30/2025 14:21:33 03/29/20 25 03/29/2025 CT/GC AND TRICH OMONA S VAGIN SILVA (RRNA ), URINE trichomonas vaginalis ribosomal RNA (rrna) Negati ve negati ve Not Available [facility] (Lab) [address] [place], [address], 03/30/2025 14:21:33 04/20/20 25 04/20/2025 HEMAT OCRIT (HCT) HCT 29.1 % (based on docume nted legal sex) 34.0-4 5.0 low Not Available [facility] (Lab) [address] [facility], [place], [address], 04/23/2025 15:25:44 04/20/20 25 04/20/2025 HEMOG LOBIN (HGB) HGB 9.3 g/dL (based on docume nted legal sex) 11.6-1 5.4 low Not Available [facility] (Lab) [address] [facility], [place], [address], 04/23/2025 15:25:45 04/20/20 25 04/20/2025 HIV 1/2 ANTIG EN/AN TIBOD Y, REFLE X CONFI RMATI ON HIV antigen/anti body Nonrea ctive nonrea ctive HIV-1 antig en and HIV-1 /HIV- 2 antib odies were not detec jluis. No labor atory evide nce of HIV infec tion. Not Available [facility] (Lab) [address] [facility], [place], [address], 04/23/2025 15:25:45 04/20/20 25 04/20/2025 RPR SCREE [...] ion (TP-P A) testi ng. Not Available [facility] (Lab) [address] [facility], [place], [address], 04/23/2025 15:25:46 04/20/20 25 04/20/2025 RPR SCREE N, REFLE X TITER /CONF IRMAT ION RPR titer 1:8 . none high Not Available [facility] (Lab) [address] [facility], [place], [address], 04/23/2025 15:25:46 04/20/20 25 04/20/2025 SYPHI LIS [...] tion of the syphi lis rever se [facility] and resul ts, see: https ://ganesh sena Whois / it-mm files /Syph ilis_ Serol ogy_A lgori thm.p df ----- ----- ----- ----A DDITI ONAL INFOR MATNOHEMY N---- ----- ----- ----- This test is inten ded to be used as a confi rmato ry test on sampl es that have been teste d by [facility] syphi lis test. Test Perfo rmed by: [facility] [place] [address] [place] [address] Lab Direc tor: Jay Manzano nn Ph.D. ; CLIA# [id number] Not Available [facility] (Lab) [address], [place], [address], 04/23/2025 15:25:46 05/27/20 25 05/27/2025 PROTE IN/CR EATIN INE RATIO , URINE creatinine, urine 123.0 mg/dL R-No refer ence range estab lishe d for this assay Not Available [facility] (Lab) [address], [place], [address], 05/28/2025 10:30:45 05/27/20 25 05/27/2025 PROTE IN/CR EATIN INE RATIO , URINE protein, urine 22 mg/dL R-No refer ence range estab lishe d for this assay Not Available [facility] (Lab) [address], [place], [address], 05/28/2025 10:30:45 05/27/20 25 05/27/2025 PROTE IN/CR [...] fican t prote inuri a. Not Available [facility] (Lab) [address], [place], [address], 05/28/2025 10:30:45 06/06/20 25 06/06/2025 CT/GC AND TRICH OMONA S VAGIN SILVA (RRNA ), URINE chlamydia trachomatis, PCR Negati ve negati ve Not Available [facility] (Lab) [address] [facility], [place], [address], 06/09/2025 16:13:50 06/06/20 25 06/06/2025 CT/GC AND TRICH OMONA S VAGIN SILVA (RRNA ), URINE neisseria gonorrhoeae, PCR Negati ve negati ve Not Available [facility] (Lab) [address], [place], [address], 06/09/2025 16:13:50 06/06/20 25 06/06/2025 CT/GC AND TRICH OMONA S VAGIN SILVA (RRNA ), URINE trichomonas vaginalis ribosomal RNA (rrna) Negati ve negati ve Not Available [facility] (Lab) [address] [facility], [place], [address], 06/09/2025 16:13:50 06/06/20 25 06/06/2025 CULTU RE: [...] Resul ting Lab: [facility] [address] [facility] [address] Tel: CULTU RE ----- ----- ----- --- No Group B strep isola jluis at 2 days (shelia ctive broth enhan cemen t) Not Available [facility] (Lab) [address], [place], [address], 06/09/2025 16:13:50 03/17/20 25 03/17/2025 US, obste tric, 2nd or 3rd trime ster No observ ation record ed. [email or web address] [address] [address], [place], [address], 03/17/2025 15:45:06 03/17/20 25 03/17/2025 US, obste tric, 2nd or 3rd trime ster No observ ation record ed. [email or web address] [facility] [address], [place], [address], 03/17/2025 12:51:02 03/17/20 25 03/17/2025 US, obste tric, 2nd or 3rd trime ster No observ ation record ed. [email or web address] [facility] [address], [place], [address], 04/07/2025 21:57:11 03/17/20 25 03/17/2025 US, obste tric, 2nd or 3rd trime ster No observ ation record ed. [email or web address] [facility] [address], [place], [address], 03/17/2025 23:04:51 03/17/20 25 03/17/2025 US, obste tric, 2nd or 3rd trime ster No observ ation record ed. [email or web address] [facility] [address], [place], [address], 03/17/2025 15:45:46 03/17/20 25 03/17/2025 US, obste tric, 2nd or 3rd trime ster No observ ation record ed. [email or web address] [facility] [address], [place], [address], 03/18/2025 17:16:02 05/18/2005/18/2025 US, obste tric, follo w-up No observ ation record ed. [facility] [address], [place], [address], 05/18/2025 18:23:17 05/18/2005/18/2025 US, obste tric, follo w-up No observ ation record ed. [email or web address] [facility] [address], [place], [address], 05/20/2025 13:20:22 05/25/2005/25/2025 US, obste tric, bioph ysica l profi le + non-s tress test No observ ation record ed. [facility] [address], [place], [address], 05/25/2025 17:34:34 05/25/20 25 05/25/2025 US, obste tric, follo w-up No observ ation record ed. [email or web address] [facility] [address], [place], [address], 05/26/2025 14:44:53 05/25/2005/25/2025 non-s tress test No observ ation record ed. [email or web address] [facility] [address], [place], [address], 05/25/2025 18:39:52 05/25/20 non-s tress test No observ ation record ed. [email or web address] [facility] [address], [place], [address], 05/25/2025 17:32:07 05/30/2005/30/2025 US, obste tric, bioph ysica l profi le + non-s tress test No observ ation record ed. [email or web address] [facility] [address], [place], [address], 05/30/2025 12:42:17 05/30/2005/30/2025 US, obste tric, bioph ysica l profi le + non-s tress test No observ ation record ed. [email or web address] [facility] [address], [place], [address], 05/30/2025 17:35:43 05/30/2005/30/2025 non-s tress test No observ ation record ed. [email or web address] [facility] [address], [place], [address], 05/30/2025 13:00:42 05/30/20 non-s tress test No observ ation record ed. [email or web address] [facility] [address], [place], [address], 05/30/2025 13:02:59 06/06/2006/06/2025 US, obste tric, bioph ysica l profi le + non-s tress test No observ ation record ed. [email or web address] [facility] [address], [place], [address], 06/06/2025 14:28:11 06/06/2006/06/2025 US, obste tric, bioph ysica l profi le + non-s tress test No observ ation record ed. [email or web address] [facility] [address], [place], [address], 06/06/2025 15:10:23 06/07/2006/07/2025 non-s tress test No observ ation record ed. [email or web address] [facility] [address], [place], [address], 2025 20:27:42 06/07/20 non-s tress test No observ ation record ed. [email or web address] Not Available 2024 15:33:58 06/13/2006/13/2025 US, obste tric, follo w-up No observ ation record ed. [email or web address] [facility] [address], [place], [address], 06/14/2025 10:34:08 06/13/2006/13/2025 non-s tress test No observ ation record ed. PATRICIA [facility] [address], [place], [address], 06/19/2025 18:04:34 06/13/20 non-s tress test No observ ation record ed. [email or web address] [facility] [address], [place], [address], 06/13/2025 18:04:44 06/13/20 25 06/14/2025 US, obste tric, follo w-up No observ ation record ed. [email or web address] [facility] [address], [place], [address], 06/14/2025 13:38:03 06/13/20 25 06/14/2025 US, lucretia dimas, bioph ysica l profi le + non-s tress test No observ ation record ed. [email or web address] [facility] [address], [place], [address], 06/14/2025 13:38:17 06/15/20 25 2025 non-s tress test No observ ation record ed. [facility] [address], [place], [address], 06/17/2025 09:42:27 06/20/2006/20/2025 US, lucretia dimas, bioph ysica l profi le + non-s tress test No observ ation record ed. [email or web address] [facility] [address], [place], [address], 06/20/2025 13:28:54 06/20/20 25 06/20/2025 US, lucretia dimas, follo w-up No observ ation record ed. [email or web address] [facility] [address], [place], [address], 06/20/2025 16:32:26 06/20/20 25 06/20/2025 non-s tress test No observ ation record ed. [email or web address] [facility] [address], [place], [address], 06/20/2025 18:00:22 06/20/20 non-s tress test No observ ation record ed. [facility] [address], [place], [address], 06/20/2025 17:57:42 06/27/20 25 06/27/2025 US, lucretia dimas, bioph ysica l profi le No observ ation record ed. [email or web address] [facility] [address], [place], [address], 06/28/2025 11:16:29 06/27/2006/27/2025 US, obste tric, bioph ysica l profi le + non-s tress test No observ ation record ed. [facility] [address], [place], [address], 06/27/2025 18:49:37 06/27/2006/27/2025 non-s tress test No observ ation record ed. [facility] [address], [place], [address], 06/27/2025 18:50:27 06/27/20 non-s tress test No observ ation record ed. [email or web address] [facility] [address], [place], [address], 06/27/2025 12:29:10 Result Notes None recorded. Problems Name Problem SNOMED Code Status Onset Date Resolution Date Notes Provider Name and Address Organization Details Recorded Time Anemia 478356253 Completed Trino serrano, [facility] 4 13:00:34 Pre-ecla mpsia 420766545 Completed 37w Delivery , 2x/wk antenata l testing Trino [facility] 4 13:00:34 Group B Streptoc occus carrier 7956052030 103 Completed AMP in labor Trino serrano [facility] 4 13:00:33 Pregnanc y 07272770 Completed 202210/27/2023 Jazz serrano [facility] 5 12:31:25 Syphilis 02696173 Completed 2022 no s/s, +fta abs- tx schedule d 06/05,,0 2 Trino Moulton [facility], [facility] 4 13:00:34 Infectio n by Analia hidalgo [id number] Completed 2022 2/2 positive - tinidazo le tx 2/5 - RONEN in 4wks Trino [facility] 4 13:00:34 Gonorrhe a 76529904 Completed 2022 PA sent 08/20 for Ceftriax one - [facility] 4 13:00:34 Pregnanc y 43176685 Active 2024 Jazz Yonis [facility], [facility] 5 12:31:25 Past pregnanc y history of pre-ecla mpsia 1025260380 05344 Active 2024 recommen ded ASA previous delivery PTL 36w6d 10/08/23 EDC 10/30/23 antenata l testing Juana Timmy [facility] 5 11:26:48 History of syphilis 2011182413 504418 Active 2024 treated in previous pregnanc y titers 05/2023 1:32 decrease d to 1:8 03/17 Juana serrano [facility] 5 11:51:07 History of chlamydi al infectio n 880712620 Active 2024 Isidro Le MD [address], [place], [address], [place] [facility] 5 12:53:43 Iron deficien cy anemia 52332837 Active 2024 hgg decrease d 03-17 to 9-3 Iron infusion order faxed 05/04 _ pending insuranc e) Juana serrano, [facility] 11:03:51 Finding of arrangem ent of fetus 65907429 Active 2024 Transver se Isidro Le MD [address], [place], [address], [facility] 17:33:30 Problem Notes None recorded. Medical [...] Address Organization Details Last Updated DateTime 06/06/2025 76202.07504 g 109/69 mm[Hg] Jazz Somers [facility] 06/06/2025 15:13:54 Social History Question Answer Notes LastModified by Organizat ion Details LastModified Time Tobacco Smoking Status Never Smoker Jacqueline Dawson maggie, [facility] 03/07/2023 14:21:17 Are You Blind Or Do You Have Difficulty Seeing? No [email or web address] Information n ot available 10/01/2023 What Is Your Level Of Caffeine Consumption? Occasional [email or web address] Information not available 10/01/2023 How Much Tobacco Do You Chew? None [email or web address] Information not available 10/01/2023 In The 14 Days Before Symptom Onset, Have You Had Close Contact With A Laboratory-confirm ed COVID-19 While That Case Was Ill? No [email or web address] Information n ot available 10/01/2023 In The 14 Days Before Symptom Onset, Have You Had Close Contact With A Person Who Is Under Investigation For COVID-19 While That Person Was Ill? No [email or web address] Information not available 10/01/2023 Have You Been To An Area Known To Be High Risk For COVID-19? No [email or web address] Information not available 10/01/2023 Are You Deaf Or Do You Have Serious Difficulty Hearing? No Information not available 10/01/2023 What Type Of Diet Are You Following? REGULAR [email or web address] Information n ot available 10/01/2023 What Is The Highest Grade Or Level Of School You Have Completed Or The Highest Degree You Have Received? [id number] [email or web address] Information not available 10/01/2023 Are There Any Guns Present In Your Home? No [email or web address] Information not available 10/01/2023 Do You Use Protection During Sex? Usually [email or web address] Information not available 10/01/2023 Do You Use Your Seat Belt Or Car Seat Routinely? Yes [email or web address] Information not available 10/01/2023 Do You Have Smoke And Carbon Monoxide Detectors In Your Home? No [email or web address] Information not available 10/01/2023 How Much Tobacco Do You Smoke? No [email or web address] Information not available 10/01/2023 Do You Use Sunscreen Routinely? No [email or web address] Information not available 10/01/2023 Have You Used IV Drugs? No [email or web address] Information not available 10/01/2023 Do You Have Difficulty Walking Or Climbing Stairs? No [email or web address] Information not available 10/01/2023 Sex: Unknown Functional Status Question Answer Note LastModified by Organizat ion Details LastModified Time Do you use any illicit or recreational drugs? No [email or web address] Information not available 10/01/2023 What is your level of alcohol consumption? None [email or web address] Information not available 10/01/2023 Are you able to walk independently without assistance or assistive devices? YESWOREST [email or web address] Information not available 10/01/2023 Are you able to care for yourself independently? Yes [email or web address] Information not available 10/01/2023 Do you have difficulty dressing, bathing, grooming, or toileting? No [email or web address] Information not available 10/01/2023 What is your exercise level? Moderate [email or web address] Information not available 10/01/2023 Mental Status Question Answer Note LastModified by Organization D etails LastModified Time Do you feel stressed (tense, restless, nervous, or anxious, or unable to sleep at night)? [id number] [email or web address] Information not available 10/01/2023 Family History Relationship Description Onset Age of this Age Resolved Age Notes LastModified by Organization Details LastModified Time Father No current problems or disability [email or web address] Not available 12/10 15:37:19 Mother No current problems or disability [email or web address] Not available 12/10 15:37:19 Medical History Condition Response Other N Blood Transfusion N Dermatologic Disorders N Gestational Diabetes N Anxiety Disorder N Autoimmune disease N Arthritis N Polyps N Infertility N Acid Reflux (GERD) N Cancer N Varicosities N Stroke N Neurologic/Epilepsy N Fibromyalgia N Headaches N Kidney Disease N Heart Problems N Kidney or Bladder Problems N Eating Disorder N Art (IVF or FET) N Hepatitis/Liver Disease N No Past Medical History N Urinary Tract Infection N Asthma N Trauma/Violence N Thrombophilias N Allergies (Food, seasonal, environmental ) N Breast Cancer N Drug/Latex Allergies/Reactions N Lung Disease N Defects or Inherited Disease N Breast Problem N Hematologic disorders N Anesthesia Complications N History of STI Y Deep Vein Thrombosis N Polycystic ovary syndrome N History of abnormal pap N Endometriosis N High Cholesterol N Thyroid Problems N GI Problems N Anemia N Psychiatric Illness N Ovarian Cancer N Diabetes N Pulmonary (TB, Asthma) N Eczema N Abuse/Domestic Violence N Depression/ depression N Heart Disease N Pre-Eclampsia N Hypertension N Osteoporosis N Gynecological History Statement/Question Response Flow Moderate [...] ICD10 Code Diagnosis IMO Codes Diagnosis Note [id number] Isidro Le MD [facility] [address],[facility] [place] [address] 05/18/2025 15:16:07 05/18/2025 15:56:40 care: obstetric risk [id number] O09.293 Z3A.32 [id number] [id number] Isidro Le MD [facility] [address],[facility] [place] [address] 05/18/2025 15:17:46 05/18/2025 16:51:15 care status 011056775 Z34.83 [id number] Isidro Le MD [facility] [address] [place] [address] 05/25/2025 15:01:48 05/25/2025 15:34:08 care: obstetric risk [id number] O09.293 O09.299 Z3A.33 [id number] Isidro Le MD [facility] [address],[place] [address] 05/25/2025 15:07:02 05/25/2025 17:32:49 Past history of pre-eclampsia [id number] Z87.59 [id number] Isidro Le MD [facility] [address],[place] [address] 05/25/2025 15:07:21 05/25/2025 17:10:12 care status 092047299 Z34.83 [id number] [facility] [address],[place] [address] 05/27/2025 09:25:56 05/27/2025 09:44:43 Backache 213635068 M54.9 [id number] Acute headache 090230250 R51.9 [id number] call this afternoon if no relief will try imitrex [id number] Isidro Le MD [facility] [address],[place] [address] 05/30/2025 11:35:55 05/30/2025 12:10:04 care: obstetric risk [id number] O09.293 Z3A.34 [id number] MD Clay Aragon [address],[place] [address] 05/30/2025 11:36:32 05/30/2025 13:02:53 Pre-eclampsia 889013281 O14.90 353653 [id number] Isidro Le MD [facility] [address],[place] [address] 05/30/2025 11:36:55 05/30/2025 13:17:39 care status 960028913 Z34.83 [id number] Isidro Le MD [facility] [address],[place] [address] 06/06/2025 13:30:49 06/06/2025 14:28:09 care: obstetric risk 493148893 O09.293 Z3A.35 2818435 [id number] Isidro Le MD [facility] [address],[place] [address] 06/06/2025 13:31:14 2025 10:42:54 Past history of pre-eclampsia 0135687382 95317 Z87.59 [id number] Isidro Le MD [facility] [address],[place] [address] 06/06/2025 13:31:30 06/06/2025 15:34:03 care status 631300497 Z34.83 [id number] Health Concerns Section Related Observation LastModified by Organization Detai ls LastModified Time None Recorded Concern Status LastModified by Organization Details LastModified Time None Recorded Payers Encounter Date Sequence Insurance Name Policy Number Policy Vital Covered Member ID Vital Member ID Guarantor Name 06/06/2025 1 [place] [employer] Gisela Bates [id number] Gisela Batse Notes Date Note Type Note Provider Name and Address Organization Details Recorded Time 06/06/2025 text/html Generic HPI TemplateReported by Patient Isidro Le MD [address], [place], [address], [facility] 06/06/2025 15:32:26 OBGyn Episode Ob Episode Information Episode Created Date Number of Fetuses Patient Bloodtype Patient rh Status Prepregnancy Weight lbs Domestic Partner Domestic Partner Phone Father Name Cardroom Manager Status 03/17/20 25 1 B Positive OPEN Fetus Data First Name Last Name Admitted to NICU Weight (g) Sex Living Outcome Pediatric Complications Fetus ID Race Codes Race Delivery Type [id number] Problems Problem Notes + RPR tx spoke with Sh[facility] confirmed pt tx previous RPR 06/05/23, 06/12, & 06/19/23 titter 1:32 decreased to 1:8 per Noami antibody can be + but titer decreasing no tx unless pt sx's rash, lesions sx's rec tx if pt sx's schedule appt for evaluation. RPT labs @ 28wks , fax all labs to health dept [phone] . 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,[employer] 03/31 pt denies sx's JGBilateral double renal artery Problem Name Start Date End Date Resolution Snomed Code Not e History of syphilis 03/17/2025 [id number] treated in previous pregnancytiters 05/2023 1:32 decreased to 1:8 03/17 Iron deficiency anemia 05/04/2025 [id number] hgg decreased to 9-3 Iron infusion order faxed 05/04 _ pending insurance) History of chlamydial infection 03/17/2025 [id number] Past history of pre-eclampsia 03/17/2025 [id number] recommended ASAprevious delivery PTL 36w6d 10/08/23 EDC 10/30/23 testing Finding of arrangement of fetus 06/13/2025 [id number] Transverse Jerome Calculation Initial Jerome Date Initial [...] Weight in lbs Pre/Post Dialysis Refused Weight 131.063227100876 BP Diastolic BP Location Tested BP Systolic [...] Weight in lbs Pre/Post Dialysis Refused Weight 131.174274327879 BP Diastolic BP Location Tested BP Systolic [...] Type Weight in lbs Pre/Post Dialysis Refused 133.399716992856 BP Diastolic BP Location Tested BP Systolic [...] Type Weight in lbs Pre/Post Dialysis Refused 135.48728781108 BP Diastolic BP Location Tested BP Systolic [...] Type Weight in lbs Pre/Post Dialysis Refused 135.56974777794 BP Diastolic BP Location Tested BP Systolic [...] Weight in lbs Pre/Post Dialysis Refused Weight 139.81618808715 BP Diastolic BP Location Tested BP Systolic BP Type 76 L arm 112 sitting Fetus Heart Rate Present Fetus Movement A Yes Comments Flowsheet Date 05/25/2025 Solorzano Score Blood Edema Fundus Height Fundus Units Glucose Ketones Leukocytes Nitrite Labor Signs Protein Cervic Dilation Cervic Effacement Cervic Station Type Weight in lbs Pre/Post Dialysis Refused Weight 149.95773812906 BP Diastolic BP Location Tested BP Systolic [...] Weight in lbs Pre/Post Dialysis Refused Weight 138.090031384354 BP Diastolic BP Location Tested BP Systolic BP Type 78 L arm 120 sitting Fetus Heart Rate Present A 139 Fetus Movement A Yes Comments was at [facility] yesterday wi th ruiz and back pain [...] Type Weight in lbs Pre/Post Dialysis Refused 139.945181443461 BP Diastolic BP Location Tested BP Systolic BP Type 74 L arm 119 sitting Fetus Heart Rate Present Fetus Movement A Yes Comments Flowsheet Date 05/30/2025 Solorzano Score Blood Edema Fundus Height Fundus Units Glucose Ketones Leukocytes Nitrite Labor Signs Protein Cervic Dilation Cervic Effacement Cervic Station Type Weight in lbs Pre/Post Dialysis Refused 139.747270278603 BP Diastolic BP Location Tested BP Systolic [...] Type Weight in lbs Pre/Post Dialysis Refused 142.119914159297 BP Diastolic BP Location Tested BP Systolic [...] Type Weight in lbs Pre/Post Dialysis Refused 144.068151301604 BP Diastolic BP Location Tested BP Systolic BP Type 65 L arm 98 sitting Fetus Heart Rate Present Fetus Movement A Yes Comments Flowsheet Date 06/13/2025 Solorzano Score Blood Edema Fundus Height Fundus Units Glucose Ketones Leukocytes Nitrite Labor Signs Protein Cervic Dilation Cervic Effacement Cervic Station Type Weight in lbs Pre/Post Dialysis Refused 144.438537208407 BP Diastolic BP Location Tested BP Systolic [...] Weight in lbs Pre/Post Dialysis Refused Weight 144.38485751540 BP Diastolic BP Location Tested BP Systolic BP Type 64 L arm 104 sitting Fetus Heart Rate Present Fetus Movement A Yes Comments Flowsheet Date 06/20/2025 Solorzano Score Blood Edema Fundus Height Fundus Units Glucose Ketones Leukocytes Nitrite Labor Signs Protein Cervic Dilation Cervic Effacement Cervic Station Type Weight in lbs Pre/Post Dialysis Refused 144.105839023820 BP Diastolic BP Location Tested BP Systolic [...] Type Weight in lbs Pre/Post Dialysis Refused 147.120217300354 BP Diastolic BP Location Tested BP Systolic BP Type 70 L arm 104 sitting Fetus Heart Rate Present Fetus Movement A Yes Comments Flowsheet Date 06/27/2025 Solorzano Score Blood Edema Fundus Height Fundus Units Glucose Ketones Leukocytes Nitrite Labor Signs Protein Cervic Dilation Cervic Effacement Cervic Station Type Weight in lbs Pre/Post Dialysis Refused 147.670053538941 BP Diastolic BP Location Tested BP Systolic [...]
--- OUTSIDE RECORDS SUMMARY | 2025-07-01 06:18 | XMS_ITS | Continuity of Care Document ---
Author Organization [facility] Address [address] [place] [address] Assessment Encounter Date Assessment Date Assessment LastModified by Organization Details LastModified Time 05/05/2025 05/05/2025 Patient is ___weeks . Discussed plan. [email or web address] Not available 05/05/2025 16:49:24 Plan of Treatment Reminders Order Date Submit [...] Resul penelopeg Lab: [facility] [address] [facility] [address] Tel: CULTU RE ----- ----- ----- --- No growt h in 1 day (dete ction level of 10,00 0 colon ies / ml.) Not Available [facility] (Lab) [address], [place], [address], 03/19/2025 07:23:20 03/17/20 25 03/17/2025 CBC W/DIF F WBC 5.0 10'3/ uL 3.5-10 .5 Not Available [facility] (Lab) [address], [place], [address], 03/21/2025 14:27:06 03/17/20 25 03/17/2025 CBC W/DIF F RBC 3.57 10'6/ uL (based on docume nted legal sex) 3.80-5 .20 low Not Available [facility] (Lab) [address], [place], [address], 03/21/2025 14:27:06 03/17/20 25 03/17/2025 CBC W/DIF F HGB 10.5 g/dL (based on docume nted legal sex) 11.6-1 5.4 low Not Available [facility] (Lab) [address], [place], [address], 03/21/2025 14:27:06 03/17/20 25 03/17/2025 CBC W/DIF F HCT 30.2 % (based on docume nted legal sex) 34.0-4 5.0 low Not Available [facility] (Lab) [address], [place], [address], 03/21/2025 14:27:06 03/17/20 25 03/17/2025 CBC W/DIF F MCV 84.6 fL 80.0-9 9.0 Not Available [facility] (Lab) [address], [place], [address], 03/21/2025 14:27:06 03/17/20 25 03/17/2025 CBC W/DIF F MCH 29.4 pg 27.0-3 4.0 Not Available [facility] (Lab) [address], [place], [address], 03/21/2025 14:27:06 03/17/20 25 03/17/2025 CBC W/DIF F MCHC 34.8 g/dL 32.0-3 5.5 Not Available [facility] (Lab) [address], [place], [address], 03/21/2025 14:27:06 03/17/20 25 03/17/2025 CBC W/DIF F RDW 13.3 % 11.0-1 5.0 Not Available [facility] (Lab) [address], [place], [address], 03/21/2025 14:27:06 03/17/20 25 03/17/2025 CBC W/DIF F plt 235 10'3/ uL 150-40 0 Not Available [facility] (Lab) [address], [place], [address], 03/21/2025 14:27:06 03/17/20 25 03/17/2025 CBC W/DIF F MPV 10.4 fL 8.8-12 .1 Not Available [facility] (Lab) [address], [place], [address], 03/21/2025 14:27:06 03/17/20 25 03/17/2025 CBC W/DIF F NRBC's 0.0 % 0.0 Not Available [facility] (Lab) [address], [place], [address], 03/21/2025 14:27:06 03/17/20 25 03/17/2025 CBC W/DIF F absolute NRBCs 0.0 10'3/ uL no refere nce range establ ished Not Available [facility] (Lab) [address], [place], [address], 03/21/2025 14:27:06 03/17/20 25 03/17/2025 CBC W/DIF F neutrophils 72.4 % 34.0-7 3.0 Not Available [facility] (Lab) [address], [place], [address], 03/21/2025 14:27:06 03/17/20 25 03/17/2025 CBC W/DIF F lymphocytes 14.4 % 15.0-5 0.0 low Not Available [facility] (Lab) [address], [place], [address], 03/21/2025 14:27:06 03/17/20 25 03/17/2025 CBC W/DIF F monocytes 6.6 % 1.0-15 .0 Not Available [facility] (Lab) [address], [place], [address], 03/21/2025 14:27:06 03/17/20 25 03/17/2025 CBC W/DIF F eosinophils 5.2 % 0.0-8. 0 Not Available [facility] (Lab) [address], [place], [address], 03/21/2025 14:27:06 03/17/20 25 03/17/2025 CBC W/DIF F basophils 0.4 % 0.0-2. 0 Not Available [facility] (Lab) [address], [place], [address], 03/21/2025 14:27:06 03/17/2003/17/2025 CBC W/DIF F immature granulocytes 1.0 % no define d refere nce range Immat ure Granu locyt es (IG) repre sents autom ated enume ratio n of Metam yeloc ytes, Myelo cytes and Promy elocy freda when IG is < 5%. Blast s are not inclu ded in IG and repor jluis separ ately if prese nt. Not Available [facility] (Lab) [address], [place], [address], 03/21/2025 14:27:06 03/17/20 25 03/17/2025 CBC W/DIF F absolute neutrophils 3.6 10'3/ uL 1.5-8. 0 Not Available [facility] (Lab) [address], [place], [address], 03/21/2025 14:27:06 03/17/20 25 03/17/2025 CBC W/DIF F absolute lymphocytes 0.7 10'3/ uL 1.0-4. 0 low Not Available [facility] (Lab) [address], [place], [address], 03/21/2025 14:27:06 03/17/20 25 03/17/2025 CBC W/DIF F absolute monocytes 0.3 10'3/ uL 0.2-1. 0 Not Available [facility] (Lab) [address], [place], [address], 03/21/2025 14:27:06 03/17/20 25 03/17/2025 CBC W/DIF F absolute eosinophils 0.3 10'3/ uL 0.0-0. 6 Not Available [facility] (Lab) [address], [place], [address], 03/21/2025 14:27:06 03/17/20 25 03/17/2025 CBC W/DIF F absolute basophils 0.0 10'3/ uL 0.0-0. 3 Not Available [facility] (Lab) [address], [place], [address], 03/21/2025 14:27:06 03/17/20 25 03/17/2025 CBC W/DIF [...] grover book. nm.or g/gen derx Not Available [facility] (Lab) [address], [place], [address], 03/21/2025 14:27:06 03/17/2003/17/2025 HIV 1/2 ANTIG EN/AN TIBOD Y, REFLE X CONFI RMATI ON HIV antigen/anti body Nonrea ctive nonrea ctive HIV-1 antig en and HIV-1 /HIV- 2 antib odies were not detec jluis. No labor atory evide nce of HIV infec tion. Not Available [facility] (Lab) [address], [place], [address], 03/21/2025 14:27:06 03/17/2003/17/2025 HEPAT ITIS B SURFA CE ANTIG EN hepatitis B surface antigen Non-re active non-re active This assay was perfo rmed using [facility] [employer] ratio n reage nts and test kits. Value s obtai gayla with other assay metho ds or kits canno t be used inter lee eably . Not Available [facility] (Lab) [address], [place], [address], 03/21/2025 14:27:07 03/17/20 25 03/17/2025 HEPAT ITIS C ANTIB ELOISE SCREE N, REFLE X TO CONFI RMATI ON hepatitis C antibody Non-re active non-re active Antib odies to HCV Not Detec jluis, does not exclu de the possi bilit y of expos ure to HCV. Not Available [facility] (Lab) [address], [place], [address], 03/21/2025 14:27:07 03/17/20 25 03/17/2025 RUBEL LA IGG ANTIB ELOISE, QUANT rubella antibodies, IgG Reacti ve reacti ve Not Available [facility] (Lab) [address], [place], [address], 03/21/2025 14:27:08 03/17/20 25 03/17/2025 RUBEL LA IGG ANTIB ELOISE, QUANT rubella antibodies, IgG quant 14.2 IU/mL >=10 Non-r eacti ve (Non- Immun e) <10 IU/mL React reyna (Immu ne) > or = 10 IU/mL Not Available [facility] (Lab) [address], [place], [address], 03/21/2025 14:27:08 03/17/20 25 03/17/2025 TYPE/ RH/SC REEN ABO/Rh type B POS Not Available [facility] (Lab) [address], [place], [address], 03/21/2025 14:27:08 03/17/20 25 03/17/2025 TYPE/ RH/SC REEN antibody screen NEG Not Available [facility] (Lab) [address], [place], [address], 03/21/2025 14:27:08 03/17/20 25 03/17/2025 TYPE/ RH/SC REEN exp date 2024 23:59 Not Available [facility] (Lab) [address], [place], [address], 03/21/2025 14:27:08 03/17/20 25 03/17/2025 HEMOG LOBIN [...] >8.0% Actio n sugge sted Not Available [facility] (Lab) [address], [place], [address], 03/21/2025 14:27:09 03/17/20 25 03/17/2025 RPR SCREE [...] ion (TP-P A) testi ng. Not Available [facility] (Lab) [address], [place], [address], 03/21/2025 14:27:09 03/17/20 25 03/17/2025 RPR SCREE N, REFLE X TITER /CONF IRMAT ION RPR titer 1:8 . none high Not Available [facility] (Lab) [address], [place], [address], 03/21/2025 14:27:09 03/17/20 25 03/17/2025 SYPHI LIS [...] and resul ts, see: https ://ganesh sena [employer] / it-mm files /Syph ilis_ Serol ogy_A lgori thm.p df ----- ----- ----- ----A DDITI ONAL INFOR SHAJI N---- ----- ----- ----- This test is inten ded to be used as a confi rmato ry test on sampl es that have been teste d by [facility] syphi lis test. Test Perfo rmed by: [facility] - [place] [address], [place] [address] Lab Direc tor: Jay Manzano nn Ph.D. ; CLIA# [id number] Not Available [facility] (Lab) [address], [place], [address], 03/21/2025 14:27:10 03/29/2003/29/2025 CT/GC AND TRICH OMONA S VAGIN SILVA (RRNA ), URINE chlamydia trachomatis, PCR Negati ve negati ve Not Available [facility] (Lab) [address], [place], [address], 03/30/2025 14:21:33 03/29/20 25 03/29/2025 CT/GC AND TRICH OMONA S VAGIN SILVA (RRNA ), URINE neisseria gonorrhoeae, PCR Negati ve negati ve Not Available [facility] (Lab) [address], [place], [address], 03/30/2025 14:21:33 03/29/20 25 03/29/2025 CT/GC AND TRICH OMONA S VAGIN SILVA (RRNA ), URINE trichomonas vaginalis ribosomal RNA (rrna) Negati ve negati ve Not Available [facility] (Lab) [address], [place], [address], 03/30/2025 14:21:33 04/20/20 25 04/20/2025 HEMAT OCRIT (HCT) HCT 29.1 % (based on docume nted legal sex) 34.0-4 5.0 low Not Available [facility] (Lab) [address], [place], [address], 04/23/2025 15:25:44 04/20/20 25 04/20/2025 HEMOG LOBIN (HGB) HGB 9.3 g/dL (based on docume nted legal sex) 11.6-1 5.4 low Not Available [facility] (Lab) [address], [place], [address], 04/23/2025 15:25:45 04/20/2004/20/2025 HIV 1/2 ANTIG EN/AN TIBOD Y, REFLE X CONFI RMATI ON HIV antigen/anti body Nonrea ctive nonrea ctive HIV-1 antig en and HIV-1 /HIV- 2 antib odies were not detec jluis. No labor atory evide nce of HIV infec tion. Not Available [facility] (Lab) [address], [place], [address], 04/23/2025 15:25:45 04/20/20 25 04/20/2025 RPR SCREE [...] ion (TP-P A) testi ng. Not Available [facility] (Lab) [address], [place], [address], 04/23/2025 15:25:46 04/20/20 25 04/20/2025 RPR SCREE N, REFLE X TITER /CONF IRMAT ION RPR titer 1:8 . none high Not Available [facility] (Lab) [address] [place], [address], 04/23/2025 15:25:46 04/20/20 25 04/20/2025 SYPHI LIS [...] and resul ts, see: https ://ganesh sena [employer] / it-mm files /Syph ilis_ Serol ogy_A lgori thm.p df ----- ----- ----- ----A DDITI ONAL INFOR MATSUELLEN N---- ----- ----- ----- This test is inten ded to be used as a confi rmato ry test on sampl es that have been teste d by [facility] syphi lis test. Test Perfo rmed by: [facility] - [place] [address] [facility] [place] [address] Lab Direc tor: Jay Manzano nn Ph.D. ; CLIA# [id number] Not Available [facility] (Lab) [address], [place], [address], 04/23/2025 15:25:46 03/17/2003/17/2025 US, obste tric, 2nd or 3rd trime ster No observ ation record ed. [email or web address] [address], [place], [address], 03/17/2025 15:45:06 03/17/20 25 03/17/2025 US, obste tric, 2nd or 3rd trime ster No observ ation record ed. [email or web address] [address] [facility] [address], [place], [address], 03/17/2025 12:51:02 03/17/20 25 03/17/2025 US, obste tric, 2nd or 3rd trime ster No observ ation record ed. [email or web address] [facility] [address], [place], [address], 04/07/2025 21:57:11 03/17/20 25 03/17/2025 US, obste tric, 2nd or 3rd trime ster No observ ation record ed. Staci [address], [place], [address], 03/17/2025 23:04:51 03/17/20 25 03/17/2025 US, obste tric, 2nd or 3rd trime ster No observ ation record ed. [email or web address] [facility] [address], [place], [address], 03/17/2025 15:45:46 03/17/20 25 03/17/2025 US, obste tric, 2nd or 3rd trime ster No observ ation record ed. [email or web address] [facility] [address], [place], [address], 03/18/2025 17:16:02 05/18/20 25 05/18/2025 US, obste tric, follo w-up No observ ation record ed. [email or web address] [facility] [address], [place], [address], 05/18/2025 18:23:17 05/18/20 25 05/18/2025 US, obste tric, follo w-up No observ ation record ed. [email or web address] [facility] [address], [place], [address], 05/20/2025 13:20:22 05/25/2005/25/2025 US, obste tric, bioph ysica l profi le + non-s tress test No observ ation record ed. [email or web address] [facility] [address], [place], [address], 05/25/2025 17:34:34 05/25/2005/25/2025 US, obste tric, follo w-up No observ ation record ed. [email or web address] [address], [place], [address], 05/26/2025 14:44:53 05/25/2005/25/2025 non-s tress test No observ ation record ed. [email or web address] [facility] [address], [place], [address], 05/25/2025 18:39:52 05/25/20 non-s tress test No observ ation record ed. [facility] [address], [place], [address], 05/25/2025 17:32:07 05/30/2005/30/2025 US, obste tric, bioph ysica l profi le + non-s tress test No observ ation record ed. [email or web address] [facility] [address], [place], [address], 05/30/2025 12:42:17 05/30/2005/30/2025 US, obste tric, bioph ysica l profi le + non-s tress test No observ ation record ed. [email or web address] [address], [place], [address], 05/30/2025 17:35:43 05/30/2005/30/2025 non-s tress test No observ ation record ed. [email or web address] [facility] [address], [place], [address], 05/30/2025 13:00:42 05/30/20 non-s tress test No observ ation record ed. [email or web address] [facility] [address], [place], [address], 05/30/2025 13:02:59 06/06/2006/06/2025 US, obste tric, bioph ysica l profi le + non-s tress test No observ ation record ed. [email or web address] [address] [facility] [address], [place], [address], 06/06/2025 14:28:11 06/06/2006/06/2025 US, obste tric, bioph ysica l profi le + non-s tress test No observ ation record ed. [email or web address] [address], [place], [address], 06/06/2025 15:10:23 06/07/2006/07/2025 non-s tress test No observ ation record ed. [email or web address] [facility] [address], [place], [address], 2025 20:27:42 06/07/20 non-s tress test No observ ation record ed. [email or web address] Not Available 2024 15:33:58 06/13/2006/13/2025 US, obste tric, follo w-up No observ ation record ed. [email or web address] [facility] [address], [place], [address], 06/14/2025 10:34:08 06/13/20 25 06/13/2025 non-s tress test No observ ation record ed. [email or web address] [facility] [address], [place], [address], 06/19/2025 18:04:34 06/13/20 non-s tress test No observ ation record ed. [email or web address] [facility] [address], [place], [address], 06/13/2025 18:04:44 06/13/2006/14/2025 US, obstjesús tric, follo w-up No observ ation record ed. [facility] [address], [place], [address], 06/14/2025 13:38:03 06/13/2006/14/2025 US, obstjesús tric, bioph ysica l profi le + non-s tress test No observ ation record ed. [facility] [address], [place], [address], 06/14/2025 13:38:17 06/15/2006/07/2025 non-s tress test No observ ation record ed. [facility] [address], [place], [address], 06/17/2025 09:42:27 06/20/2006/20/2025 US, lucretia dimas, bioph ysica l profi le + non-s tress test No observ ation record ed. [email or web address] [facility] [address], [place], [address], 06/20/2025 13:28:54 06/20/2006/20/2025 US, obste tric, follo w-up No observ ation record ed. [email or web address] [address] [place] [address] [address], [place], [address], 06/20/2025 16:32:26 06/20/20 25 06/20/2025 non-s tress test No observ ation record ed. [email or web address] [facility] [address], [place], [address], 06/20/2025 18:00:22 06/20/20 25 non-s tress test No observ ation record ed. [address], [place], [address], 06/20/2025 17:57:42 06/27/20 25 06/27/2025 US, obste tric, bioph ysica l profi le No observ ation record ed. [email or web address] [facility] [address], [place], [address], 06/28/2025 11:16:29 06/27/20 25 06/27/2025 US, obste tric, bioph ysica l profi le + non-s tress test No observ ation record ed. [facility] [address], [place], [address], 06/27/2025 18:49:37 06/27/20 25 06/27/2025 non-s tress test No observ ation record ed. [facility] [address], [place], [address], 06/27/2025 18:50:27 06/27/20 25 non-s tress test No observ ation record ed. [address], [place], [address], 06/27/2025 12:29:10 Result Notes None recorded. Problems Name Problem SNOMED Code Status Onset Date Resolution Date Notes Provider Name and Address Organization Details Recorded Time Anemia 278229249 Completed Trino serrano, [facility] 13:00:34 Pre-ecla mpsia 395344670 Completed 37w Delivery , 2x/wk antenata l testing Trino [facility] 4 13:00:34 Group B Streptoc occus carrier 6504210426 103 Completed AMP in labor Trino [facility] 4 13:00:33 Pregnanc y 68299023 Completed 202210/27/2023 Jazz Somers [facility] 5 12:31:25 Syphilis 05821943 Completed 2022 no s/s, +fta abs- tx schedule d 06/05,, 2 Trino [facility] 4 13:00:34 Infectio n by Trichomo gwen [id number] Completed 2022 2/2 positive - tinidazo le tx 2/5 - RONEN [facility]wks [facility] 4 13:00:34 Gonorrhe a 76636994 Completed 2022 PA sent 08/20 [facility]riax [facility] 4 13:00:34 Pregnanc y 48612919 Active 2024 Jazz Somers [facility] 5 12:31:25 Past pregnanc y history of pre-ecla mpsia 1729838402 87501 Active 2024 recommen ded ASA previous delivery PTL 36w6d 10/08/23 EDC 10/30/23 antenata l testing Juana Warner [facility] 5 11:26:48 History of syphilis 9566111820 157274 Active 2024 treated in previous pregnanc y titers 05/2023 1:32 decrease d to 1:8 03/17 Juana Warner null, [facility] 5 11:51:07 History of chlamydi al infectio n 843931593 Active 2024 Isidro Le MD [address], [place], [address], [facility] 5 12:53:43 Iron deficien cy anemia 38615171 Active 2024 hgg decrease d 731 to 9-3 Iron infusion order faxed 05/04 _ pending insuranc e) Juana Timmy serrano, [facility] 5 11:03:51 Finding of arrangem ent of fetus 17577048 Active 2024 Transver se Isidro Le MD [address], [place], [address], [facility] 5 17:33:30 Problem Notes None recorded. [...] and Address Organization Details Last Updated DateTime 05/05/2025 10711.42814 g 116/74 mm[Hg] Jazz Somers [facility] 05/05/2025 16:50:57 Social History Question Answer Notes LastModified by Organizat ion Details LastModified Time Tobacco Smoking Status Never Smoker Jacqueline serrano, [facility] 03/07/2023 14:21:17 Are You Blind Or Do You Have Difficulty Seeing? No [email or web address] Information n ot available 10/01/2023 What Is Your Level Of Caffeine Consumption? Occasional [email or web address] Information not available 10/01/2023 How Much Tobacco Do You Chew? None [email or web address] Information not available 10/01/2023 In The 14 Days Before Symptom Onset, Have You Had Close Contact With A Laboratory-confirm ed COVID-19 While That Case Was Ill? No [email or web address] Information n ot available 10/01/2023 In The 14 Days Before Symptom Onset, Have You Had Close Contact With A Person Who Is Under Investigation For COVID-19 While That Person Was Ill? No [email or web address] Information not available 10/01/2023 Have You Been To An Area Known To Be High Risk For COVID-19? No [email or web address] Information not available 10/01/2023 Are You Deaf Or Do You Have Serious Difficulty Hearing? No [email or web address] Information not available 10/01/2023 What Type Of Diet Are You Following? REGULAR Information n ot available 10/01/2023 What Is The Highest Grade Or Level Of School You Have Completed Or The Highest Degree You Have Received? CS07340-4 [email or web address] Information not available 10/01/2023 Are There Any Guns Present In Your Home? No Information not available 10/01/2023 Do You Use Protection During Sex? Usually Information not available 10/01/2023 Do You Use Your Seat Belt Or Car Seat Routinely? Yes [email or web address] Information not available 10/01/2023 Do You Have Smoke And Carbon Monoxide Detectors In Your Home? No [email or web address] Information not available 10/01/2023 How Much Tobacco Do You Smoke? No [email or web address] Information not available 10/01/2023 Do You Use Sunscreen Routinely? No [email or web address] Information not available 10/01/2023 Have You Used IV Drugs? No [email or web address] Information not available 10/01/2023 Do You Have Difficulty Walking Or Climbing Stairs? No [email or web address] Information not available 10/01/2023 Sex: Unknown Functional Status Question Answer Note LastModified by Organizat ion Details LastModified Time Do you use any illicit or recreational drugs? No [email or web address] Information not available 10/01/2023 What is your level of alcohol consumption? None [email or web address] Information not available 10/01/2023 Are you able to walk independently without assistance or assistive devices? YESWOREST [email or web address] Information not available 10/01/2023 Are you able to care for yourself independently? Yes [email or web address] Information not available 10/01/2023 Do you have difficulty dressing, bathing, grooming, or toileting? No [email or web address] Information not available 10/01/2023 What is your exercise level? Moderate [email or web address] Information not available 10/01/2023 Mental Status Question Answer Note LastModified by Organization D etails LastModified Time Do you feel stressed (tense, restless, nervous, or anxious, or unable to sleep at night)? [id number] [email or web address] Information not available 10/01/2023 Family History Relationship [...] N Breast Cancer N Blood Transfusion N Lung Disease N Dermatologic Disorders N Defects or Inherited Disease N Breast Problem N Gestational Diabetes N Hematologic disorders N Anesthesia Complications N History of STI Y Deep Vein Thrombosis N Polycystic ovary syndrome N Anxiety Disorder N Autoimmune disease N Arthritis N Polyps N Infertility N History of abnormal pap N Acid Reflux (GERD) N Cancer N [...] ICD10 Code Diagnosis IMO Codes Diagnosis Note [id number] Isidro Le MD [facility] [place] [address] [address] 04/20/2025 14:14:57 04/20/2025 15:23:54 care status [id number] Z34.83 [id number] Isidro Le MD [facility] [address] [address] 05/05/2025 16:07:26 05/05/2025 17:26:18 care status [id number] Z34.83 [id number] Health Concerns Section Related Observation LastModified by Organization Detai ls LastModified Time None Recorded Concern Status LastModified by Organization Details LastModified Time None Recorded Payers Encounter Date Sequence Insurance Name Policy Number Policy Vital Covered Member ID Vital Member ID Guarantor Name 05/05/2025 1 [facility] (MEDICAID HMO) [id number] Gisela Bates [id number] Gisela Bates Notes Date Note Type Note Provider Name and Address Organization Details Recorded Time 05/05/2025 text/html Generic HPI TemplateReported by Patient Isidro Le MD [address], [place], [address], [facility] 05/05/2025 17:21:17 OBGyn Episode Ob Episode Information Episode Created Date Number of Fetuses Patient Bloodtype Patient rh Status Prepregnancy Weight lbs Domestic Partner Domestic Partner Phone Father Name [employer] Operator Status 03/17/20 25 1 B Positive OPEN Fetus Data First Name Last Name Admitted to NICU Weight (g) Sex Living Outcome Pediatric Complications Fetus ID Race Codes Race Delivery Type [id number] Problems Problem Notes + RPR tx spoke [...] , fax all labs to health dept [phone] . 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 03/31 pt denies sx's JGBilateral double renal artery Problem Name Start Date End Date Resolution Snomed Code Not e History of syphilis 03/17/2025 [id number] treated in previous pregnancytiters 05/2023 1:32 decreased to 1:8 03/17 Iron deficiency anemia 05/04/2025 [id number] hgg decreased - to 9-3 Iron infusion order faxed 05/04 _ pending insurance) History of chlamydial infection 03/17/2025 [id number] Past history of pre-eclampsia 03/17/2025 [id number] recommended ASAprevious delivery PTL 36w6d 10/08/23 EDC 10/30/23 testing Finding of arrangement of fetus 06/13/2025 [id number] Transverse Jerome Calculation Initial Jerome Date Initial [...] Weight in lbs Pre/Post Dialysis Refused Weight 131.210270811408 BP Diastolic BP Location Tested BP Systolic [...] Weight in lbs Pre/Post Dialysis Refused Weight 131.936563008412 BP Diastolic BP Location Tested BP Systolic [...] Type Weight in lbs Pre/Post Dialysis Refused 133.370613191766 BP Diastolic BP Location Tested BP Systolic [...] Type Weight in lbs Pre/Post Dialysis Refused 135.45405131370 BP Diastolic BP Location Tested BP Systolic [...] Type Weight in lbs Pre/Post Dialysis Refused 135.35589591821 BP Diastolic BP Location Tested BP Systolic [...] Weight in lbs Pre/Post Dialysis Refused Weight 139.82588642676 BP Diastolic BP Location Tested BP Systolic BP Type 76 L arm 112 sitting Fetus Heart Rate Present Fetus Movement A Yes Comments Flowsheet Date 05/25/2025 Solorzano Score Blood Edema Fundus Height Fundus Units Glucose Ketones Leukocytes Nitrite Labor Signs Protein Cervic Dilation Cervic Effacement Cervic Station Type Weight in lbs Pre/Post Dialysis Refused Weight 149.98889987840 BP Diastolic BP Location Tested BP Systolic [...] Weight in lbs Pre/Post Dialysis Refused Weight 138.459191542994 BP Diastolic BP Location Tested BP Systolic BP Type 78 L arm 120 sitting Fetus Heart Rate Present A 139 Fetus Movement A Yes Comments was at [facility] yesterday wi th ruiz and back pain [...] Type Weight in lbs Pre/Post Dialysis Refused 139.817192298756 BP Diastolic BP Location Tested BP Systolic BP Type 74 L arm 119 sitting Fetus Heart Rate Present Fetus Movement A Yes Comments Flowsheet Date 05/30/2025 Solorzano Score Blood Edema Fundus Height Fundus Units Glucose Ketones Leukocytes Nitrite Labor Signs Protein Cervic Dilation Cervic Effacement Cervic Station Type Weight in lbs Pre/Post Dialysis Refused 139.561790505714 BP Diastolic BP Location Tested BP Systolic [...] Type Weight in lbs Pre/Post Dialysis Refused 142.283899860229 BP Diastolic BP Location Tested BP Systolic [...] Type Weight in lbs Pre/Post Dialysis Refused 144.269211811707 BP Diastolic BP Location Tested BP Systolic BP Type 65 L arm 98 sitting Fetus Heart Rate Present Fetus Movement A Yes Comments Flowsheet Date 06/13/2025 Solorzano Score Blood Edema Fundus Height Fundus Units Glucose Ketones Leukocytes Nitrite Labor Signs Protein Cervic Dilation Cervic Effacement Cervic Station Type Weight in lbs Pre/Post Dialysis Refused 144.119614631561 BP Diastolic BP Location Tested BP Systolic [...] Weight in lbs Pre/Post Dialysis Refused Weight 144.12335956209 BP Diastolic BP Location Tested BP Systolic BP Type 64 L arm 104 sitting Fetus Heart Rate Present Fetus Movement A Yes Comments Flowsheet Date 06/20/2025 Solorzano Score Blood Edema Fundus Height Fundus Units Glucose Ketones Leukocytes Nitrite Labor Signs Protein Cervic Dilation Cervic Effacement Cervic Station Type Weight in lbs Pre/Post Dialysis Refused 144.905435391756 BP Diastolic BP Location Tested BP Systolic [...] Type Weight in lbs Pre/Post Dialysis Refused 147.975081554717 BP Diastolic BP Location Tested BP Systolic BP Type 70 L arm 104 sitting Fetus Heart Rate Present Fetus Movement A Yes Comments Flowsheet Date 06/27/2025 Solorzano Score Blood Edema Fundus Height Fundus Units Glucose Ketones Leukocytes Nitrite Labor Signs Protein Cervic Dilation Cervic Effacement Cervic Station Type Weight in lbs Pre/Post Dialysis Refused 147.340600187822 BP Diastolic BP Location Tested BP Systolic [...]
--- OUTSIDE RECORDS SUMMARY | 2025-07-01 06:18 | XMS_ITS | Continuity of Care Document ---
Author Organization [facility], [facility] Address [address] [place] [place] [address] Assessment No assessment recorded. Plan of Treatment [...] d. Imaging non-str ess test 2024 025 [id number] [address], [address], [place], [address], 06/21/2025 08:20:28 Medication Orders None recorde d. Patient TargetsNo [...] Resul ting Lab: [facility] [address] [facility] [address] Tel: CULTU RE ----- ----- ----- --- No growt h in 1 day (dete ction level of 10,00 0 colon ies / ml.) Not Available [facility] (Lab) [address], [place], [address], 03/19/2025 07:23:20 03/17/20 25 03/17/2025 CBC W/DIF F WBC 5.0 10'3/ uL 3.5-10 .5 Not Available [facility] (Lab) [address], [place], [address], 03/21/2025 14:27:06 03/17/20 25 03/17/2025 CBC W/DIF F RBC 3.57 10'6/ uL (based on docume nted legal sex) 3.80-5 .20 low Not Available [facility] (Lab) [address], [place], [address], 03/21/2025 14:27:06 03/17/20 25 03/17/2025 CBC W/DIF F HGB 10.5 g/dL (based on docume nted legal sex) 11.6-1 5.4 low Not Available [facility] (Lab) [address], [place], [address], 03/21/2025 14:27:06 03/17/20 25 03/17/2025 CBC W/DIF F HCT 30.2 % (based on docume nted legal sex) 34.0-4 5.0 low Not Available [facility] (Lab) [address], [place], [address], 03/21/2025 14:27:06 03/17/20 25 03/17/2025 CBC W/DIF F MCV 84.6 fL 80.0-9 9.0 Not Available [facility] (Lab) [address], [place], [address], 03/21/2025 14:27:06 03/17/20 25 03/17/2025 CBC W/DIF F MCH 29.4 pg 27.0-3 4.0 Not Available [facility] (Lab) [address], [place], [address], 03/21/2025 14:27:06 03/17/20 25 03/17/2025 CBC W/DIF F MCHC 34.8 g/dL 32.0-3 5.5 Not Available [facility] (Lab) [address], [place], [address], 03/21/2025 14:27:06 03/17/20 25 03/17/2025 CBC W/DIF F RDW 13.3 % 11.0-1 5.0 Not Available [facility] (Lab) [address], [place], [address], 03/21/2025 14:27:06 03/17/20 25 03/17/2025 CBC W/DIF F plt 235 10'3/ uL 150-40 0 Not Available [facility] (Lab) [address], [place], [address], 03/21/2025 14:27:06 03/17/20 25 03/17/2025 CBC W/DIF F MPV 10.4 fL 8.8-12 .1 Not Available [facility] (Lab) [address], [place], [address], 03/21/2025 14:27:06 03/17/20 25 03/17/2025 CBC W/DIF F NRBC's 0.0 % 0.0 Not Available [facility] (Lab) [address], [place], [address], 03/21/2025 14:27:06 03/17/20 25 03/17/2025 CBC W/DIF F absolute NRBCs 0.0 10'3/ uL no refere nce range establ ished Not Available [facility] (Lab) [address], [place], [address], 03/21/2025 14:27:06 03/17/20 25 03/17/2025 CBC W/DIF F neutrophils 72.4 % 34.0-7 3.0 Not Available [facility] (Lab) [address] [place], [address], 03/21/2025 14:27:06 03/17/20 25 03/17/2025 CBC W/DIF F lymphocytes 14.4 % 15.0-5 0.0 low Not Available [facility] (Lab) [address], [place], [address], 03/21/2025 14:27:06 03/17/20 25 03/17/2025 CBC W/DIF F monocytes 6.6 % 1.0-15 .0 Not Available [facility] (Lab) [address], [place], [address], 03/21/2025 14:27:06 03/17/20 25 03/17/2025 CBC W/DIF F eosinophils 5.2 % 0.0-8. 0 Not Available [facility] (Lab) [address], [place], [address], 03/21/2025 14:27:06 03/17/20 25 03/17/2025 CBC W/DIF F basophils 0.4 % 0.0-2. 0 Not Available [facility] (Lab) [address], [place], [address], 03/21/2025 14:27:06 03/17/20 25 03/17/2025 CBC W/DIF [...] separ ately if prese nt. Not Available [facility] (Lab) [address], [place], [address], 03/21/2025 14:27:06 03/17/20 25 03/17/2025 CBC W/DIF F absolute neutrophils 3.6 10'3/ uL 1.5-8. 0 Not Available [facility] (Lab) [address], [place], [address], 03/21/2025 14:27:06 03/17/20 25 03/17/2025 CBC W/DIF F absolute lymphocytes 0.7 10'3/ uL 1.0-4. 0 low Not Available [facility] (Lab) [address], [place], [address], 03/21/2025 14:27:06 03/17/20 25 03/17/2025 CBC W/DIF F absolute monocytes 0.3 10'3/ uL 0.2-1. 0 Not Available [facility] (Lab) [address], [place], [address], 03/21/2025 14:27:06 03/17/20 25 03/17/2025 CBC W/DIF F absolute eosinophils 0.3 10'3/ uL 0.0-0. 6 Not Available [facility] (Lab) [address], [place], [address], 03/21/2025 14:27:06 03/17/20 25 03/17/2025 CBC W/DIF F absolute basophils 0.0 10'3/ uL 0.0-0. 3 Not Available [facility] (Lab) [address], [place], [address], 03/21/2025 14:27:06 03/17/20 25 03/17/2025 CBC W/DIF [...] bhand book. nm.or g/gen derx Not Available [facility] (Lab) [address], [place], [address], 03/21/2025 14:27:06 03/17/2003/17/2025 HIV 1/2 ANTIG EN/AN TIBOD Y, REFLE X CONFI RMATI ON HIV antigen/anti body Nonrea ctive nonrea ctive HIV-1 antig en and HIV-1 /HIV- 2 antib odies were not detec jluis. No labor atory evide nce of HIV infec tion. Not Available [facility] (Lab) [address], [place], [address], 03/21/2025 14:27:06 03/17/20 25 03/17/2025 HEPAT ITIS B SURFA CE ANTIG EN hepatitis B surface antigen Non-re active non-re active This assay was perfo rmed using [facility] [employer] ratio n reage nts and test kits. Value s obtai gayla with other assay metho ds or kits canno t be used inter lee eably . Not Available [facility] (Lab) [address], [place], [address], 03/21/2025 14:27:07 03/17/20 25 03/17/2025 HEPAT ITIS C ANTIB ELOISE SCREE N, REFLE X TO CONFI RMATI ON hepatitis C antibody Non-re active non-re active Antib odies to HCV Not Detec jluis, does not exclu de the possi bilit y of expos ure to HCV. Not Available [facility] (Lab) [address] [place], [address], 03/21/2025 14:27:07 03/17/20 25 03/17/2025 RUBEL LA IGG ANTIB ELOISE, QUANT rubella antibodies, IgG Reacti ve reacti ve Not Available [facility] (Lab) [address], [place], [address], 03/21/2025 14:27:08 03/17/20 25 03/17/2025 RUBEL LA IGG ANTIB ELOISE, QUANT rubella antibodies, IgG quant 14.2 IU/mL >=10 Non-r eacti ve (Non- Immun e) <10 IU/mL React reyna (Immu ne) > or = 10 IU/mL Not Available [facility] (Lab) [address], [place], [address], 03/21/2025 14:27:08 03/17/20 25 03/17/2025 TYPE/ RH/SC REEN ABO/Rh type B POS Not Available [facility] (Lab) [address], [place], [address], 03/21/2025 14:27:08 03/17/20 25 03/17/2025 TYPE/ RH/SC REEN antibody screen NEG Not Available [facility] (Lab) [address], [place], [address], 03/21/2025 14:27:08 03/17/20 25 03/17/2025 TYPE/ RH/SC REEN exp date 2024 23:59 Not Available [facility] (Lab) [address], [place], [address], 03/21/2025 14:27:08 03/17/20 25 03/17/2025 HEMOG LOBIN [...] >8.0% Actio n sugge sted Not Available [facility] (Lab) [address], [place], [address], 03/21/2025 14:27:09 03/17/20 25 03/17/2025 RPR SCREE [...] ion (TP-P A) testi ng. Not Available [facility] (Lab) [address], [place], [address], 03/21/2025 14:27:09 03/17/20 25 03/17/2025 RPR SCREE N, REFLE X TITER /CONF IRMAT ION RPR titer 1:8 . none high Not Available [facility] (Lab) [address], [place], [address], 03/21/2025 14:27:09 03/17/20 25 03/17/2025 SYPHI LIS [...] of the syphi lis rever se [facility] and resul ts, see: https ://ganesh sena Galavantier / it-mm files /Syph ilis_ Serol ogy_A lgori thm.p df ----- ----- ----- ----A DDITI ONAL INFOR MATNOHEMY N---- ----- ----- ----- This test is inten ded to be used as a confi rmato ry test on sampl es that have been teste d by [facility] syphi lis test. Test Perfo rmed by: [facility] - [place] [address], [place] [address] Lab Direc tor: Jay Manzano nn Ph.D. ; CLIA# [id number] Not Available [facility] (Lab) [address], [place], [address], 03/21/2025 14:27:10 03/29/2003/29/2025 CT/GC AND TRICH OMONA S VAGIN SILVA (RRNA ), URINE chlamydia trachomatis, PCR Negati ve negati ve Not Available [facility] (Lab) [address] [place], [address], 03/30/2025 14:21:33 03/29/2003/29/2025 CT/GC AND TRICH OMONA S VAGIN SILVA (RRNA ), URINE neisseria gonorrhoeae, PCR Negati ve negati ve Not Available [facility] (Lab) [address] [place], [address], 03/30/2025 14:21:33 03/29/20 25 03/29/2025 CT/GC AND TRICH OMONA S VAGIN SILVA (RRNA ), URINE trichomonas vaginalis ribosomal RNA (rrna) Negati ve negati ve Not Available [facility] (Lab) [address] [place], [address], 03/30/2025 14:21:33 04/20/2004/2004/20/2025 HEMAT OCRIT (HCT) HCT 29.1 % (based on docume nted legal sex) 34.0-4 5.0 low Not Available [facility] (Lab) [address], [place], [address], 04/23/2025 15:25:44 04/20/20 25 04/20/2025 HEMOG LOBIN (HGB) HGB 9.3 g/dL (based on docume nted legal sex) 11.6-1 5.4 low Not Available [facility] (Lab) [address], [place], [address], 04/23/2025 15:25:45 04/20/20 25 04/20/2025 HIV 1/2 ANTIG EN/AN TIBOD Y, REFLE X CONFI RMATI ON HIV antigen/anti body Nonrea ctive nonrea ctive HIV-1 antig en and HIV-1 /HIV- 2 antib odies were not detec jluis. No labor atory evide nce of HIV infec tion. Not Available [facility] (Lab) [address], [place], [address], 04/23/2025 15:25:45 04/20/20 25 04/20/2025 RPR SCREE [...] ion (TP-P A) testi ng. Not Available [facility] (Lab) [address], [place], [address], 04/23/2025 15:25:46 04/20/20 25 04/20/2025 RPR SCREE N, REFLE X TITER /CONF IRMAT ION RPR titer 1:8 . none high Not Available [facility] (Lab) [address], [place], [address], 04/23/2025 15:25:46 04/20/20 25 04/20/2025 SYPHI LIS [...] of the syphi lis rever se [facility] and resul ts, see: https ://ganesh sena [employer]av[employer] / it-mm files /Syph ilis_ Serol ogy_A lgori thm.p df ----- ----- ----- ----A DDITI ONAL INFOR MATNOHEMY N---- ----- ----- ----- This test is inten ded to be used as a confi rmato ry test on sampl es that have been teste d by [facility] syphi lis test. Test Perfo rmed by: [facility] - [place] [address] [address] Lab Direc tor: Jay Manzano nn Ph.D. ; CLIA# [id number] Not Available [facility] (Lab) [address], [place], [address], 04/23/2025 15:25:46 05/27/2005/27/2025 PROTE IN/CR EATIN INE RATIO , URINE creatinine, urine 123.0 mg/dL R-No refer ence range estab lishe d for this assay Not Available [facility] (Lab) [address], [place], [address], 05/28/2025 10:30:45 05/27/20 25 05/27/2025 PROTE IN/CR EATIN INE RATIO , URINE protein, urine 22 mg/dL R-No refer ence range estab lishe d for this assay Not Available [facility] (Lab) [address], [place], [address], 05/28/2025 10:30:45 05/27/20 25 05/27/2025 PROTE IN/CR [...] fican t prote inuri a. Not Available [facility] (Lab) [address], [place], [address], 05/28/2025 10:30:45 06/06/20 25 06/06/2025 CT/GC AND TRICH OMONA S VAGIN SILVA (RRNA ), URINE chlamydia trachomatis, PCR Negati ve negati ve Not Available [facility] (Lab) [address], [place], [address], 06/09/2025 16:13:50 06/06/20 25 06/06/2025 CT/GC AND TRICH OMONA S VAGIN SILVA (RRNA ), URINE neisseria gonorrhoeae, PCR Negati ve negati ve Not Available [facility] (Lab) [address], [place], [address], 06/09/2025 16:13:50 06/06/20 25 06/06/2025 CT/GC AND TRICH OMONA S VAGIN SILVA (RRNA ), URINE trichomonas vaginalis ribosomal RNA (rrna) Negati ve negati ve Not Available [facility] (Lab) [address], [place], [address], 06/09/2025 16:13:50 06/06/20 25 06/06/2025 CULTU RE: [...] Resul ting Lab: [facility] [address] [facility] [address] Tel: CULTU RE ----- ----- ----- --- No Group B strep isola jluis at 2 days (shelia ctive broth enhan cemen t) Not Available [facility] (Lab) [address], [place], [address], 06/09/2025 16:13:50 03/17/20 25 03/17/2025 US, obste tric, 2nd or 3rd trime ster No observ ation record ed. [email or web address] [address], [place], [address], 03/17/2025 15:45:06 03/17/20 25 03/17/2025 US, obste tric, 2nd or 3rd trime ster No observ ation record ed. [email or web address] [address], [place], [address], 03/17/2025 12:51:02 03/17/20 25 03/17/2025 US, obste tric, 2nd or 3rd trime ster No observ ation record ed. [email or web address] [address], [place], [address], 04/07/2025 21:57:11 03/17/20 25 03/17/2025 US, obste tric, 2nd or 3rd trime ster No observ ation record ed. [address], [place], [address], 03/17/2025 23:04:51 03/17/20 25 03/17/2025 US, obste tric, 2nd or 3rd trime ster No observ ation record ed. [email or web address] [address], [place], [address], 03/17/2025 15:45:46 03/17/20 25 03/17/2025 US, obste tric, 2nd or 3rd trime ster No observ ation record ed. [email or web address] [address], [place], [address], 03/18/2025 17:16:02 05/18/2005/18/2025 , obste tric, follo w-up No observ ation record ed. [facility] [address], [place], [address], 05/18/2025 18:23:17 05/18/2005/18/2025 US, obste tric, follo w-up No observ ation record ed. [email or web address] [address], [place], [address], 05/20/2025 13:20:22 05/25/2005/25/2025 , obste tric, bioph ysica l profi le + non-s tress test No observ ation record ed. [facility] [address], [place], [address], 05/25/2025 17:34:34 05/25/20 25 05/25/2025 US, obste tric, follo w-up No observ ation record ed. [email or web address] [address], [place], [address], 05/26/2025 14:44:53 05/25/2005/25/2025 non-s tress test No observ ation record ed. [email or web address] [address], [place], [address], 05/25/2025 18:39:52 05/25/20 non-s tress test No observ ation record ed. [email or web address] [address], [place], [address], 05/25/2025 17:32:07 05/30/2005/30/2025 US, obste tric, bioph ysica l profi le + non-s tress test No observ ation record ed. [email or web address] [address], [place], [address], 05/30/2025 12:42:17 05/30/2005/30/2025 US, obste tric, bioph ysica l profi le + non-s tress test No observ ation record ed. [email or web address] [address] [place] [address] [address], [place], [address], 05/30/2025 17:35:43 05/30/2005/30/2025 non-s tress test No observ ation record ed. [email or web address] [address], [place], [address], 05/30/2025 13:00:42 05/30/20 non-s tress test No observ ation record ed. [email or web address] [address], [place], [address], 05/30/2025 13:02:59 06/06/2006/06/2025 US, obste tric, bioph ysica l profi le + non-s tress test No observ ation record ed. [email or web address] [address], [place], [address], 06/06/2025 14:28:11 06/06/2006/06/2025 US, lucretia tric, bioph ysica l profi le + non-s tress test No observ ation record ed. [email or web address] [address], [place], [address], 06/06/2025 15:10:23 06/07/2006/07/2025 non-s tress test No observ ation record ed. [email or web address] [address], [place], [address], 2025 20:27:42 06/07/20 non-s tress test No observ ation record ed. [email or web address] Not Available 2024 15:33:58 06/13/2006/13/2025 US, obste tric, follo w-up No observ ation record ed. [email or web address] [address], [place], [address], 06/14/2025 10:34:08 06/13/2006/13/2025 non-s tress test No observ ation record ed. PATRICIA [address]ine [address], [place], [address], 06/19/2025 18:04:34 06/13/20 non-s tress test No observ ation record ed. [email or web address] [address]ine [address], [place], [address], 06/13/2025 18:04:44 06/13/2006/14/2025 US, obste tric, follo w-up No observ ation record ed. [email or web address] [address], [place], [address], 06/14/2025 13:38:03 06/13/20 25 06/14/2025 US, obste tric, bioph ysica l profi le + non-s tress test No observ ation record ed. [email or web address] [address], [place], [address], 06/14/2025 13:38:17 06/15/20 25 2025 non-s tress test No observ ation record ed. [facility] [address], [place], [address], 06/17/2025 09:42:27 06/20/2006/20/2025 US, obste tric, bioph ysica l profi le + non-s tress test No observ ation record ed. [email or web address] [address]ine [address], [place], [address], 06/20/2025 13:28:54 06/20/20 25 06/20/2025 US, obste tric, follo w-up No observ ation record ed. [email or web address] [address], [place], [address], 06/20/2025 16:32:26 06/20/20 25 06/20/2025 non-s tress test No observ ation record ed. [email or web address] [address]ine [address], [place], [address], 06/20/2025 18:00:22 06/20/20 non-s tress test No observ ation record ed. [email or web address] [address]ine [address], [place], [address], 06/20/2025 17:57:42 06/27/20 25 06/27/2025 US, obste tric, bioph ysica l profi le No observ ation record ed. [email or web address] [address] [place] [address] [address], [place], [address], 06/28/2025 11:16:29 06/27/2006/27/2025 US, obste tric, bioph ysica l profi le + non-s tress test No observ ation record ed. [facility] [address], [place], [address], 06/27/2025 18:49:37 06/27/2006/27/2025 non-s tress test No observ ation record ed. [facility] [address], [place], [address], 06/27/2025 18:50:27 06/27/20 non-s tress test No observ ation record ed. [email or web address] [place] [address] [address], [place], [address], 06/27/2025 12:29:10 Result Notes None recorded. Problems Name Problem SNOMED Code Status Onset Date Resolution Date Notes Provider Name and Address Organization Details Recorded Time Anemia 787016747 Completed Trino serrano, [facility] 4 13:00:34 Pre-ecla mpsia 114020867 Completed 37w Delivery , 2x/wk antenata l testing [facility] 4 13:00:34 Group B Streptoc occus carrier 1549965488 103 Completed AMP in labor Trino serrano [facility] 4 13:00:33 Pregnanc y 21721120 Completed 202210/27/2023 Jazz serrano, [facility] 5 12:31:25 Syphilis 53196825 Completed 2022 no s/s, +fta abs- tx schedule d 06/05,, 2 Trino [facility], [facility] 4 13:00:34 Infectio n by Analia hidalgo [id number] Completed 2022 2/2 positive - tinidazo le tx 2/5 - RONEN in 4wks Trino [facility] 4 13:00:34 Gonorrhe a 62817568 Completed 2022 PA sent 08/20 for Ceftriax one - RONEN NEGATIVE Trino [place] 4 13:00:34 Pregnanc y 41047060 Active 2024 [facility], [facility] 5 12:31:25 Past pregnanc y history of pre-ecla mpsia 8323528625 02754 Active 2024 recommen ded ASA previous delivery PTL 36w6d 10/08/23 EDC 10/30/23 antenata l testing Juana Warner [facility] 5 11:26:48 History of syphilis 1101738638 727920 Active 2024 treated in previous pregnanc y titers 05/2023 1:32 decrease d to 1:8 03/17 [facility] 11:51:07 History of chlamydi al infectio n 095583713 Active 2024 Isidro Le MD [address], [place], [address], [facility] 5 12:53:43 Iron deficien cy anemia 68899026 Active 2024 hgg decrease d 03-17 to 9-3 Iron infusion order faxed 05/04 _ pending insuranc e) Juana Timmy serrano, [facility] 5 11:03:51 Finding of arrangem ent of fetus 99905002 Active 2024 Transver se Isidro Le MD [address], [place], [address], [facility] 17:33:30 Problem Notes None recorded. Medical [...] and Address Organization Details Last Updated DateTime 06/20/2025 03429.19041 g 104/64 mm[Hg] Jazz Somers [facility] 06/20/2025 12:00:20 Date Recorded Body height Body mass index (BMI) Body weight Systolic And Diastolic Provider Name and Address Organization Details Last Updated DateTime 06/20/2025 165.1 cm 24 kg/m2 35854.3 g 104/64 mm[Hg] Christine Lamb [facility] 06/20/2025 17:55:46 Social History Question Answer Notes LastModified by Organizat ion Details LastModified Time Tobacco Smoking Status Never Smoker [facility]queline Dawson [facility] 03/07/2023 14:21:17 Are You Blind Or Do You Have Difficulty Seeing? No [email or web address] Information n ot available 10/01/2023 What Is Your Level Of Caffeine Consumption? Occasional [email or web address] Information not available 10/01/2023 How Much Tobacco Do You Chew? None [email or web address] Information not available 10/01/2023 In The 14 Days Before Symptom Onset, Have You Had Close Contact With A Laboratory-confirm ed COVID-19 While That Case Was Ill? No [email or web address] Information n ot available 10/01/2023 In The 14 Days Before Symptom Onset, Have You Had Close Contact With A Person Who Is Under Investigation For COVID-19 While That Person Was Ill? No [email or web address] Information not available 10/01/2023 Have You Been To An Area Known To Be High Risk For COVID-19? No [email or web address] Information not available 10/01/2023 Are You Deaf Or Do You Have Serious Difficulty Hearing? No [email or web address] Information not available 10/01/2023 What Type Of Diet Are You Following? REGULAR Information n ot available 10/01/2023 What Is The Highest Grade Or Level Of School You Have Completed Or The Highest Degree You Have Received? [id number] [email or web address] Information not available 10/01/2023 Are There Any Guns Present In Your Home? No [email or web address] Information not available 10/01/2023 Do You Use Protection During Sex? Usually [email or web address] Information not available 10/01/2023 Do You Use Your Seat Belt Or Car Seat Routinely? Yes [email or web address] Information not available 10/01/2023 Do You Have Smoke And Carbon Monoxide Detectors In Your Home? No [email or web address] Information not available 10/01/2023 How Much Tobacco Do You Smoke? No [email or web address] Information not available 10/01/2023 Do You Use Sunscreen Routinely? No [email or web address] Information not available 10/01/2023 Have You Used IV Drugs? No [email or web address] Information not available 10/01/2023 Do You Have Difficulty Walking Or Climbing Stairs? No [email or web address] Information not available 10/01/2023 Sex: Unknown Functional Status Question Answer Note LastModified by Organizat ion Details LastModified Time Do you use any illicit or recreational drugs? No [email or web address] Information not available 10/01/2023 What is your level of alcohol consumption? None [email or web address] Information not available 10/01/2023 Are you able to walk independently without assistance or assistive devices? YESWOREST [email or web address] Information not available 10/01/2023 Are you able to care for yourself independently? Yes [email or web address] Information not available 10/01/2023 Do you have difficulty dressing, bathing, grooming, or toileting? No [email or web address] Information not available 10/01/2023 What is your exercise level? Moderate [email or web address] Information not available 10/01/2023 Mental Status Question Answer Note LastModified by Organization D etails LastModified Time Do you feel stressed (tense, restless, nervous, or anxious, or unable to sleep at night)? [id number] [email or web address] Information not available 10/01/2023 Family History Relationship [...] ICD10 Code Diagnosis IMO Codes Diagnosis Note [id number] Isidro Le MD [facility] [address] [address] 05/25/2025 15:01:48 05/25/2025 15:34:08 care: obstetric risk 744482068 O09.293 O09.299 Z3A.33 6927638 [id number] Isidro Le MD [facility] [address],[place] [address] 05/25/2025 15:07:02 05/25/2025 17:32:49 Past history of pre-eclampsia [id number] 42017 Z87.59 887521 [id number] Isidro Le MD [facility] [address],[place] [address] 05/25/2025 15:07:21 05/25/2025 17:10:12 care status 952440828 Z34.83 [id number] Mita Tavera, [facility] [address],[place] [address] 05/27/2025 09:25:56 05/27/2025 09:44:43 Backache 741980038 M54.9 [id number] Acute headache 660273020 R51.9 [id number] call this afternoon if no relief will try imitrex [id number] Isidro Le MD [facility] [address],[place] [address] 05/30/2025 11:35:55 05/30/2025 12:10:04 care: obstetric risk 915079512 O09.293 Z3A.34 1311119 [id number] Isidro Le MD [facility] [address],[place] [address] 05/30/2025 11:36:32 05/30/2025 13:02:53 Pre-eclampsia 593309063 O14.90 902001 [id number] Isidro Le MD [facility] [address],[place] [address] 05/30/2025 11:36:55 05/30/2025 13:17:39 care status 301669576 Z34.83 04151961 [id number] Isidro Le MD [facility] [address],[place] [address] 06/06/2025 13:30:49 06/06/2025 14:28:09 care: obstetric risk 425230486 O09.293 Z3A.35 3301141 [id number] MD Clay Aragon [address],[place] [address] 06/06/2025 13:31:14 2025 10:42:54 Past history of pre-eclampsia 5490131368 64926 Z87.59 030316 [id number] MD Clay Aragon [address],[place] [address] 06/06/2025 13:31:30 06/06/2025 15:34:03 care status 881679074 Z34.83 98195792 [id number] MD Clay Aragon [address],[place] [address] 06/13/2025 15:39:53 06/14/2025 09:09:52 care: obstetric risk 521377696 O09.293 Z3A.36 4660320 [id number] BLACK YUN MD [facility] [address],[place] [address] 06/13/2025 15:40:02 06/14/2025 09:09:28 Past history of pre-eclampsia 4644723346 71793 Z87.59 034520 [id number] MD Clay Aragon [address],[place] [address] 06/13/2025 15:40:14 06/13/2025 17:38:16 care status 671560565 Z34.83 51338490 [id number] MD Clay Aragon [address],[place] [address] 06/20/2025 10:15:50 06/20/2025 11:10:24 care: obstetric risk 136585702 O09.293 Z3A.37 5036700 [id number] MD Clay Aragon [address],[place] [address] 06/20/2025 10:16:00 06/21/2025 08:20:28 Past history of pre-eclampsia 9416514926 07081 Z87.59 [id number] Isidro Le MD [facility] [address] [address] 06/20/2025 10:16:11 06/20/2025 12:23:37 care status 725413851 Z34.83 [id number] Health Concerns Section Related Observation LastModified by Organization Detai ls LastModified Time None Recorded Concern Status LastModified by Organization Details LastModified Time None Recorded Payers Encounter Date Sequence Insurance Name Policy Number Policy Vital Covered Member ID Vital Member ID Guarantor Name 06/20/2025 1 [facility] (MEDICAID HMO) [id number] Gisela Bates [id number] Gisela Bates Notes Date Note Type Note Provider Name and Address Organization Details Recorded Time 06/20/2025 text/html Generic HPI TemplateReported by Patient Isidro Le MD [address], [place], [address], [facility] 06/20/2025 12:18:00 OBGyn Episode Ob Episode Information Episode Created Date Number of Fetuses Patient Bloodtype Patient rh Status Prepregnancy Weight lbs Domestic Partner Domestic Partner Phone Father Name Bell Spinner Status 03/17/20 25 1 B Positive OPEN Fetus Data First Name Last Name Admitted to NICU Weight (g) Sex Living Outcome Pediatric Complications Fetus ID Race Codes Race Delivery Type [id number] Problems Problem Notes + RPR tx spoke with [facility] confirmed pt tx previous RPR 06/05/23, 06/12, & 06/19/23 titter 1:32 decreased to 1:8 per Pat antibody can be + but titer decreasing no tx unless pt sx's rash, lesions sx's rec tx if pt sx's schedule appt for evaluation. RPT labs @ 28wks , fax all labs to health dept [phone] . 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 03/31 pt denies sx's JGBilateral double renal artery Problem Name Start Date End Date Resolution Snomed Code Not e History of syphilis 03/17/2025 [id number] treated in previous pregnancytiters 05/2023 1:32 decreased to 1:8 03/17 Iron deficiency anemia 05/04/2025 71821626 hgg decreased to 9-3 Iron infusion order faxed 05/04 _ pending insurance) History of chlamydial infection 03/17/2025 [id number] Past history of pre-eclampsia 03/17/2025 [id number] recommended ASAprevious delivery PTL 36w6d 10/08/23 EDC 10/30/23 testing Finding of arrangement of fetus 06/13/2025 74502752 Transverse Jerome Calculation Initial Jerome Date Initial [...] Weight in lbs Pre/Post Dialysis Refused Weight 131.013596741186 BP Diastolic BP Location Tested BP Systolic [...] Weight in lbs Pre/Post Dialysis Refused Weight 131.638755667499 BP Diastolic BP Location Tested BP Systolic [...] Type Weight in lbs Pre/Post Dialysis Refused 133.305156667572 BP Diastolic BP Location Tested BP Systolic [...] Type Weight in lbs Pre/Post Dialysis Refused 135.57055526143 BP Diastolic BP Location Tested BP Systolic [...] Type Weight in lbs Pre/Post Dialysis Refused 135.26017548796 BP Diastolic BP Location Tested BP Systolic [...] Weight in lbs Pre/Post Dialysis Refused Weight 139.18987633462 BP Diastolic BP Location Tested BP Systolic BP Type 76 L arm 112 sitting Fetus Heart Rate Present Fetus Movement A Yes Comments Flowsheet Date 05/25/2025 Solorzano Score Blood Edema Fundus Height Fundus Units Glucose Ketones Leukocytes Nitrite Labor Signs Protein Cervic Dilation Cervic Effacement Cervic Station Type Weight in lbs Pre/Post Dialysis Refused Weight 149.44720291955 BP Diastolic BP Location Tested BP Systolic [...] Weight in lbs Pre/Post Dialysis Refused Weight 138.846684124650 BP Diastolic BP Location Tested BP Systolic BP Type 78 L arm 120 sitting Fetus Heart Rate Present A 139 Fetus Movement A Yes Comments was at [facility] yesterday [place] ruiz and back pain sent home with [...] Type Weight in lbs Pre/Post Dialysis Refused 139.257872246517 BP Diastolic BP Location Tested BP Systolic BP Type 74 L arm 119 sitting Fetus Heart Rate Present Fetus Movement A Yes Comments Flowsheet Date 05/30/2025 Solorzano Score Blood Edema Fundus Height Fundus Units Glucose Ketones Leukocytes Nitrite Labor Signs Protein Cervic Dilation Cervic Effacement Cervic Station Type Weight in lbs Pre/Post Dialysis Refused 139.669612197275 BP Diastolic BP Location Tested BP Systolic [...] Type Weight in lbs Pre/Post Dialysis Refused 142.328583061153 BP Diastolic BP Location Tested BP Systolic [...] Type Weight in lbs Pre/Post Dialysis Refused 144.674350651643 BP Diastolic BP Location Tested BP Systolic BP Type 65 L arm 98 sitting Fetus Heart Rate Present Fetus Movement A Yes Comments Flowsheet Date 06/13/2025 Solorzano Score Blood Edema Fundus Height Fundus Units Glucose Ketones Leukocytes Nitrite Labor Signs Protein Cervic Dilation Cervic Effacement Cervic Station Type Weight in lbs Pre/Post Dialysis Refused 144.269524763251 BP Diastolic BP Location Tested BP Systolic [...] Weight in lbs Pre/Post Dialysis Refused Weight 144.07015753394 BP Diastolic BP Location Tested BP Systolic BP Type 64 L arm 104 sitting Fetus Heart Rate Present Fetus Movement A Yes Comments Flowsheet Date 06/20/2025 Solorzano Score Blood Edema Fundus Height Fundus Units Glucose Ketones Leukocytes Nitrite Labor Signs Protein Cervic Dilation Cervic Effacement Cervic Station Type Weight in lbs Pre/Post Dialysis Refused 144.867498686282 BP Diastolic BP Location Tested BP Systolic [...] Type Weight in lbs Pre/Post Dialysis Refused 147.918561718188 BP Diastolic BP Location Tested BP Systolic BP Type 70 L arm 104 sitting Fetus Heart Rate Present Fetus Movement A Yes Comments Flowsheet Date 06/27/2025 Solorzano Score Blood Edema Fundus Height Fundus Units Glucose Ketones Leukocytes Nitrite Labor Signs Protein Cervic Dilation Cervic Effacement Cervic Station Type Weight in lbs Pre/Post Dialysis Refused 147.250806195795 BP Diastolic BP Location Tested BP Systolic [...]
--- OUTSIDE RECORDS SUMMARY | 2025-07-01 06:19 | XMS_ITS | Continuity of Care Document ---
Author Organization [facility] Address [address] [place] [place] [address] Assessment No assessment recorded. Plan of Treatment [...] None recorde d. Imaging US, obstetr ic, follow- up 2024 025 [email or web address] [place], [address], [address], [place], [address], 05/19/2025 11:12:29 Medication Orders None recorde d. Patient TargetsNo [...] Lab: [facility] [address] [facility] [address] Tel: CULTU RE ----- ----- ----- --- No growt h in 1 day (dete ction level of 10,00 0 colon ies / ml.) Not Available [facility] (Lab) [address], [place], [address], 03/19/2025 07:23:20 03/17/20 25 03/17/2025 CBC W/DIF F WBC 5.0 10'3/ uL 3.5-10 .5 Not Available [facility] (Lab) [address], [place], [address], 03/21/2025 14:27:06 03/17/20 25 03/17/2025 CBC W/DIF F RBC 3.57 10'6/ uL (based on docume nted legal sex) 3.80-5 .20 low Not Available [facility] (Lab) [address], [place], [address], 03/21/2025 14:27:06 03/17/20 25 03/17/2025 CBC W/DIF F HGB 10.5 g/dL (based on docume nted legal sex) 11.6-1 5.4 low Not Available [facility] (Lab) [address], [place], [address], 03/21/2025 14:27:06 03/17/20 25 03/17/2025 CBC W/DIF F HCT 30.2 % (based on docume nted legal sex) 34.0-4 5.0 low Not Available [facility] (Lab) [address], [place], [address], 03/21/2025 14:27:06 03/17/20 25 03/17/2025 CBC W/DIF F MCV 84.6 fL 80.0-9 9.0 Not Available [facility] (Lab) [address], [place], [address], 03/21/2025 14:27:06 03/17/20 25 03/17/2025 CBC W/DIF F MCH 29.4 pg 27.0-3 4.0 Not Available [facility] (Lab) [address], [place], [address], 03/21/2025 14:27:06 03/17/20 25 03/17/2025 CBC W/DIF F MCHC 34.8 g/dL 32.0-3 5.5 Not Available [facility] (Lab) [address], [place], [address], 03/21/2025 14:27:06 03/17/20 25 03/17/2025 CBC W/DIF F RDW 13.3 % 11.0-1 5.0 Not Available [facility] (Lab) [address], [place], [address], 03/21/2025 14:27:06 03/17/20 25 03/17/2025 CBC W/DIF F plt 235 10'3/ uL 150-40 0 Not Available [facility] (Lab) [address], [place], [address], 03/21/2025 14:27:06 03/17/20 25 03/17/2025 CBC W/DIF F MPV 10.4 fL 8.8-12 .1 Not Available [facility] (Lab) [address], [place], [address], 03/21/2025 14:27:06 03/17/20 25 03/17/2025 CBC W/DIF F NRBC's 0.0 % 0.0 Not Available [facility] (Lab) [address], [place], [address], 03/21/2025 14:27:06 03/17/20 03/17/2025 CBC W/DIF F absolute NRBCs 0.0 10'3/ uL no refere nce range establ ished Not Available [facility] (Lab) [address], [place], [address], 03/21/2025 14:27:06 03/17/20 25 03/17/2025 CBC W/DIF F neutrophils 72.4 % 34.0-7 3.0 Not Available [facility] (Lab) [address], [place], [address], 03/21/2025 14:27:06 03/17/20 25 03/17/2025 CBC W/DIF F lymphocytes 14.4 % 15.0-5 0.0 low Not Available [facility] (Lab) [address], [place], [address], 03/21/2025 14:27:06 03/17/20 25 03/17/2025 CBC W/DIF F monocytes 6.6 % 1.0-15 .0 Not Available [facility] (Lab) [address], [place], [address], 03/21/2025 14:27:06 03/17/20 25 03/17/2025 CBC W/DIF F eosinophils 5.2 % 0.0-8. 0 Not Available [facility] (Lab) [address] [place], [address], 03/21/2025 14:27:06 03/17/20 25 03/17/2025 CBC W/DIF F basophils 0.4 % 0.0-2. 0 Not Available [facility] (Lab) [address] [place], [address], 03/21/2025 14:27:06 03/17/20 25 03/17/2025 CBC W/DIF [...] separ ately if prese nt. Not Available [facility] (Lab) [address], [place], [address], 03/21/2025 14:27:06 03/17/20 25 03/17/2025 CBC W/DIF F absolute neutrophils 3.6 10'3/ uL 1.5-8. 0 Not Available [facility] (Lab) [address], [place], [address], 03/21/2025 14:27:06 03/17/20 25 03/17/2025 CBC W/DIF F absolute lymphocytes 0.7 10'3/ uL 1.0-4. 0 low Not Available [facility] (Lab) [address], [place], [address], 03/21/2025 14:27:06 03/17/20 25 03/17/2025 CBC W/DIF F absolute monocytes 0.3 10'3/ uL 0.2-1. 0 Not Available [facility] (Lab) [address], [place], [address], 03/21/2025 14:27:06 03/17/20 25 03/17/2025 CBC W/DIF F absolute eosinophils 0.3 10'3/ uL 0.0-0. 6 Not Available [facility] (Lab) [address], [place], [address], 03/21/2025 14:27:06 03/17/20 25 03/17/2025 CBC W/DIF F absolute basophils 0.0 10'3/ uL 0.0-0. 3 Not Available [facility] (Lab) [address], [place], [address], 03/21/2025 14:27:06 03/17/20 25 03/17/2025 CBC W/DIF [...] bhand book. nm.or g/gen derx Not Available [facility] (Lab) [address], [place], [address], 03/21/2025 14:27:06 03/17/2003/17/2025 HIV 1/2 ANTIG EN/AN TIBOD Y, REFLE X CONFI RMATI ON HIV antigen/anti body Nonrea ctive nonrea ctive HIV-1 antig en and HIV-1 /HIV- 2 antib odies were not detec jluis. No labor atory evide nce of HIV infec tion. Not Available [facility] (Lab) [address], [place], [address], 03/21/2025 14:27:06 03/17/20 25 03/17/2025 HEPAT ITIS B SURFA CE ANTIG EN hepatitis B surface antigen Non-re active non-re active This assay was perfo rmed using [facility] [employer] [facility] [facility] [employer] ratio n reage nts and test kits. Value s obtai gayla with other assay metho ds or kits canno t be used inter lee eably . Not Available [facility] (Lab) [address], [place], [address], 03/21/2025 14:27:07 03/17/20 25 03/17/2025 HEPAT ITIS C ANTIB ELOISE SCREE N, REFLE X TO CONFI RMATI ON hepatitis C antibody Non-re active non-re active Antib odies to HCV Not Detec jluis, does not exclu de the possi bilit y of expos ure to HCV. Not Available [facility] (Lab) [address] [place], [address], 03/21/2025 14:27:07 03/17/20 25 03/17/2025 RUBEL LA IGG ANTIB ELOISE, QUANT rubella antibodies, IgG Reacti ve reacti ve Not Available [facility] (Lab) [address], [place], [address], 03/21/2025 14:27:08 03/17/20 25 03/17/2025 RUBEL LA IGG ANTIB ELOISE, QUANT rubella antibodies, IgG quant 14.2 IU/mL >=10 Non-r eacti ve (Non- Immun e) <10 IU/mL React reyna (Immu ne) > or = 10 IU/mL Not Available [facility] (Lab) [address], [place], [address], 03/21/2025 14:27:08 03/17/20 25 03/17/2025 TYPE/ RH/SC REEN ABO/Rh type B POS Not Available [facility] (Lab) [address], [place], [address], 03/21/2025 14:27:08 03/17/20 25 03/17/2025 TYPE/ RH/SC REEN antibody screen NEG Not Available [facility] (Lab) [address], [place], [address], 03/21/2025 14:27:08 03/17/20 25 03/17/2025 TYPE/ RH/SC REEN exp date 2024 23:59 Not Available [facility] (Lab) [address], [place], [address], 03/21/2025 14:27:08 03/17/20 25 03/17/2025 HEMOG LOBIN [...] >8.0% Actio n sugge sted Not Available [facility] (Lab) [address], [place], [address], 03/21/2025 14:27:09 03/17/20 25 03/17/2025 RPR SCREE [...] ion (TP-P A) testi ng. Not Available [facility] (Lab) [address], [place], [address], 03/21/2025 14:27:09 03/17/20 25 03/17/2025 RPR SCREE N, REFLE X TITER /CONF IRMAT ION RPR titer 1:8 . none high Not Available [facility] (Lab) [address], [place], [address], 03/21/2025 14:27:09 03/17/20 25 03/17/2025 SYPHI LIS [...] of the syphi lis rever se algor [facility], see: https :[email or web address] [email or web address] [email or web address] / it-mm files /Syph ilis_ Serol ogy_A lgori thm.p df ----- ----- ----- ----A DDITI ONAL INFOR MATNOHEMY N---- ----- ----- ----- This test is inten ded to be used as a confi rmato ry test on sampl es that have been teste d by [facility] syphi lis test. Test Perfo rmed by: [facility] [place] [address], [place] [address] Lab Direc tor: Jay Manzano nn Ph.D. ; CLIA# [id number] Not Available [facility] (Lab) [address], [place], [address], 03/21/2025 14:27:10 03/29/2003/29/2025 CT/GC AND TRICH OMONA S VAGIN SILVA (RRNA ), URINE chlamydia trachomatis, PCR Negati ve negati ve Not Available [facility] (Lab) [address] [place], [address], 03/30/2025 14:21:33 03/29/20 25 03/29/2025 CT/GC AND TRICH OMONA S VAGIN SILVA (RRNA ), URINE neisseria gonorrhoeae, PCR Negati ve negati ve Not Available [facility] (Lab) [address], [place], [address], 03/30/2025 14:21:33 03/29/20 25 03/29/2025 CT/GC AND TRICH OMONA S VAGIN SILVA (RRNA ), URINE trichomonas vaginalis ribosomal RNA (rrna) Negati ve negati ve Not Available [facility] (Lab) [address] [place], [address], 03/30/2025 14:21:33 04/20/20 25 04/20/2025 HEMAT OCRIT (HCT) HCT 29.1 % (based on docume nted legal sex) 34.0-4 5.0 low Not Available [facility] (Lab) [address], [place], [address], 04/23/2025 15:25:44 04/20/20 25 04/20/2025 HEMOG LOBIN (HGB) HGB 9.3 g/dL (based on docume nted legal sex) 11.6-1 5.4 low Not Available [facility] (Lab) [address], [place], [address], 04/23/2025 15:25:45 04/20/20 25 04/20/2025 HIV 1/2 ANTIG EN/AN TIBOD Y, REFLE X CONFI RMATI ON HIV antigen/anti body Nonrea ctive nonrea ctive HIV-1 antig en and HIV-1 /HIV- 2 antib odies were not detec jluis. No labor atory evide nce of HIV infec tion. Not Available [facility] (Lab) [address], [place], [address], 04/23/2025 15:25:45 04/20/20 25 04/20/2025 RPR SCREE [...] ion (TP-P A) testi ng. Not Available [facility] (Lab) [address], [place], [address], 04/23/2025 15:25:46 04/20/20 25 04/20/2025 RPR SCREE N, REFLE X TITER /CONF IRMAT ION RPR titer 1:8 . none high Not Available [facility] (Lab) [address], [place], [address], 04/23/2025 15:25:46 04/20/20 25 04/20/2025 SYPHI LIS [...] of the syphi lis rever se algor [facility] and resul ts, see: https :[email or web address] sena [email or web address] / it-mm files /Syph ilis_ Serol ogy_A lgori thm.p df ----- ----- ----- ----A DDITI ONAL INFOR VANNA N---- ----- ----- ----- This test is inten ded to be used as a confi rmato ry test on sampl es that have been teste d by [facility] syphi lis test. Test Perfo rmed by: [facility] [place] [address] [place] [address] Lab Direc tor: Jay Manzano nn Ph.D. ; CLIA# [id number] Not Available [facility] (Lab) [address], [place], [address], 04/23/2025 15:25:46 03/17/2003/17/2025 US, obste tric, 2nd or 3rd trime ster No observ ation record ed. [email or web address] [address], [place], [address], 03/17/2025 15:45:06 03/17/20 25 03/17/2025 US, obste tric, 2nd or 3rd trime ster No observ ation record ed. [email or web address] [facility] [address], [place], [address], 03/17/2025 12:51:02 03/17/20 25 03/17/2025 US, obste tric, 2nd or 3rd trime ster No observ ation record ed. [email or web address] [facility] [address], [place], [address], 04/07/2025 21:57:11 03/17/20 25 03/17/2025 US, obste tric, 2nd or 3rd trime ster No observ ation record ed. [email or web address] [facility] [address], [place], [address], 03/17/2025 23:04:51 03/17/20 25 03/17/2025 US, obste tric, 2nd or 3rd trime ster No observ ation record ed. [email or web address] [facility] [address], [place], [address], 03/17/2025 15:45:46 03/17/20 25 03/17/2025 US, obste tric, 2nd or 3rd trime ster No observ ation record ed. [facility] [address], [place], [address], 03/18/2025 17:16:02 05/18/20 25 05/18/2025 US, obste tric, follo w-up No observ ation record ed. [email or web address] [facility] [address], [place], [address], 05/18/2025 18:23:17 05/18/20 25 05/18/2025 US, obste tric, follo w-up No observ ation record ed. [email or web address] [facility] [address], [place], [address], 05/20/2025 13:20:22 05/25/2005/25/2025 US, obste tric, bioph ysica l profi le + non-s tress test No observ ation record ed. [email or web address] [facility] [address], [place], [address], 05/25/2025 17:34:34 05/25/2005/25/2025 US, obste tric, follo w-up No observ ation record ed. [email or web address] [facility] [address], [place], [address], 05/26/2025 14:44:53 05/25/2005/25/2025 non-s tress test No observ ation record ed. [email or web address] [facility] [address], [place], [address], 05/25/2025 18:39:52 05/25/20 non-s tress test No observ ation record ed. [email or web address] [facility] [address], [place], [address], 05/25/2025 17:32:07 05/30/2005/30/2025 US, obste tric, bioph ysica l profi le + non-s tress test No observ ation record ed. [email or web address] [facility] [address], [place], [address], 05/30/2025 12:42:17 05/30/2005/30/2025 US, obste tric, bioph ysica l profi le + non-s tress test No observ ation record ed. [email or web address] [facility] [address], [place], [address], 05/30/2025 17:35:43 05/30/2005/30/2025 non-s tress test No observ ation record ed. [email or web address] [facility] [address], [place], [address], 05/30/2025 13:00:42 05/30/20 non-s tress test No observ ation record ed. [email or web address] [facility] [address], [place], [address], 05/30/2025 13:02:59 06/06/2006/06/2025 US, obste tric, bioph ysica l profi le + non-s tress test No observ ation record ed. [email or web address] [facility] [address], [place], [address], 06/06/2025 14:28:11 06/06/2006/06/2025 US, obste tric, bioph ysica l profi le + non-s tress test No observ ation record ed. [email or web address] [facility] [address], [place], [address], 06/06/2025 15:10:23 06/07/2006/07/2025 non-s tress test No observ ation record ed. [email or web address] [facility] [address], [place], [address], 2025 20:27:42 06/07/20 non-s tress test No observ ation record ed. [email or web address] Not Available 2024 15:33:58 06/13/2006/13/2025 US, obste tric, follo w-up No observ ation record ed. [email or web address] [facility] [address], [place], [address], 06/14/2025 10:34:08 10/27/20 25 06/13/2025 non-s tress test No observ ation record ed. [email or web address] [facility] [address], [place], [address], 06/19/2025 18:04:34 06/13/20 non-s tress test No observ ation record ed. [email or web address] [facility] [address], [place], [address], 06/13/2025 18:04:44 06/13/2006/14/2025 US, obstjesús tric, follo w-up No observ ation record ed. [facility] [address], [place], [address], 06/14/2025 13:38:03 06/13/2006/14/2025 US, obste tric, bioph ysica l profi le + non-s tress test No observ ation record ed. [facility] [address], [place], [address], 06/14/2025 13:38:17 06/15/2006/07/2025 non-s tress test No observ ation record ed. [facility] [address], [place], [address], 06/17/2025 09:42:27 06/20/2006/20/2025 US, obstjesús tric, bioph ysica l profi le + non-s tress test No observ ation record ed. [email or web address] [facility] [address], [place], [address], 06/20/2025 13:28:54 06/20/2006/20/2025 US, obste tric, follo w-up No observ ation record ed. [email or web address] [facility] [address], [place], [address], 06/20/2025 16:32:26 06/20/20 25 06/20/2025 non-s tress test No observ ation record ed. [email or web address] [facility] [address], [place], [address], 06/20/2025 18:00:22 06/20/20 25 non-s tress test No observ ation record ed. [address], [place], [address], 06/20/2025 17:57:42 06/27/20 25 06/27/2025 US, obste tric, bioph ysica l profi le No observ ation record ed. [email or web address] [facility] [address] [address], [place], [address], 06/28/2025 11:16:29 06/27/20 25 06/27/2025 US, obste tric, bioph ysica l profi le + non-s tress test No observ ation [facility] ed[facility] [address], [place], [address], 06/27/2025 18:49:37 06/27/20 25 06/27/2025 non-s tress test No observ ation record ed. [email or web address] [facility] [address], [place], [address], 06/27/2025 18:50:27 06/27/20 25 non-s tress test No observ ation record ed. [address], [place], [address], 06/27/2025 12:29:10 Result Notes None recorded. Problems Name Problem SNOMED Code Status Onset Date Resolution Date Notes Provider Name and Address Organization Details Recorded Time Anemia 965936824 Completed Trino serrano [place] - [facility] 4 13:00:34 Pre-ecla mpsia 418858049 Completed 37w Delivery , 2x/wk antenata l testing Trino Moulton [facility] 4 13:00:34 Group B Streptoc occus carrier 6682819357 103 Completed AMP in labor Trino Moulton [facility] 4 13:00:33 Pregnanc y 33649239 Completed 202210/27/2023 Jazz Somers [facility] 5 12:31:25 Syphilis 01805212 Completed 2022 no s/s, +fta abs- tx schedule d 06/05,, 2 Trino Moulton [facility] 4 13:00:34 Infectio n by Trichomo gwen [id number] Completed 2022 2/2 positive - tinidazo le tx 2/5 [facility] 4 13:00:34 Gonorrhe a 14455623 Completed 2022 PA sent 08/20 for Ceftriax one - RONEN NEGATIVE Trino Moulton [facility] 4 13:00:34 Pregnanc y 70610785 Active 2024 Jazz Somers [facility] 5 12:31:25 Past pregnanc y history of pre-ecla mpsia 9778419414 29385 Active 2024 recommen ded ASA previous delivery PTL 36w6d 10/08/23 EDC 10/30/23 antenata l testing Juana Warner [facility] 5 11:26:48 History of syphilis 8240377097 796978 Active 2024 treated in previous pregnanc y titers 05/2023 1:32 decrease d to 1:8 03/17 Juana serrano, [facility] 5 11:51:07 History of chlamydi al infectio n 950607993 Active 2024 Isidro Le MD [address], [place], [address], [facility] 5 12:53:43 Iron deficien cy anemia 15410573 Active 2024 hgg decrease d 03-17 to 9-3 Iron infusion order faxed 05/04 _ pending insuranc e) Juana serrano, [facility] 5 11:03:51 Finding of arrangem ent of fetus 40695485 Active 2024 Transver se Isidro Le MD [address], [place], [address], [facility] 5 17:33:30 Problem Notes [...] and Address Organization Details Last Updated DateTime 05/18/2025 86458.20836 g 115/74 mm[Hg] Christine Adonis [facility] 05/18/2025 16:06:07 Social History Question Answer Notes LastModified by Organizat ion Details LastModified Time Tobacco Smoking Status Never Smoker Jacqueline Eunice serrano, [facility] 03/07/2023 14:21:17 Are You Blind Or Do You Have Difficulty Seeing? No [email or web address] Information n ot available 10/01/2023 What Is Your Level Of Caffeine Consumption? Occasional [email or web address] Information not available 10/01/2023 How Much Tobacco Do You Chew? None [email or web address] Information not available 10/01/2023 In The 14 Days Before Symptom Onset, Have You Had Close Contact With A Laboratory-confirm ed COVID-19 While That Case Was Ill? No [email or web address] Information n ot available 10/01/2023 In The 14 Days Before Symptom Onset, Have You Had Close Contact With A Person Who Is Under Investigation For COVID-19 While That Person Was Ill? No [email or web address] Information not available 10/01/2023 Have You Been To An Area Known To Be High Risk For COVID-19? No [email or web address] Information not available 10/01/2023 Are You Deaf Or Do You Have Serious Difficulty Hearing? No [email or web address] Information not available 10/01/2023 What Type Of Diet Are You Following? REGULAR [email or web address] Information n ot available 10/01/2023 What Is The Highest Grade Or Level Of School You Have Completed Or The Highest Degree You Have Received? [id number] [email or web address] Information not available 10/01/2023 Are There Any Guns Present In Your Home? No [email or web address] Information not available 10/01/2023 Do You Use Protection During Sex? Usually [email or web address] Information not available 10/01/2023 Do You Use Your Seat Belt Or Car Seat Routinely? Yes Information not available 10/01/2023 Do You Have Smoke And Carbon Monoxide Detectors In Your Home? No [email or web address] Information not available 10/01/2023 How Much Tobacco Do You Smoke? No [email or web address] Information not available 10/01/2023 Do You Use Sunscreen Routinely? No [email or web address] Information not available 10/01/2023 Have You Used IV Drugs? No [email or web address] Information not available 10/01/2023 Do You Have Difficulty Walking Or Climbing Stairs? No [email or web address] Information not available 10/01/2023 Sex: Unknown Functional Status Question Answer Note LastModified by Organizat ion Details LastModified Time Do you use any illicit or recreational drugs? No [email or web address] Information not available 10/01/2023 What is your level of alcohol consumption? None [email or web address] Information not available 10/01/2023 Are you able to walk independently without assistance or assistive devices? YESWOREST [email or web address] Information not available 10/01/2023 Are you able to care for yourself independently? Yes Information not available 10/01/2023 Do you have difficulty dressing, bathing, grooming, or toileting? No [email or web address] Information not available 10/01/2023 What is your exercise level? Moderate [email or web address] Information not available 10/01/2023 Mental Status Question Answer Note LastModified by Organization D etails LastModified Time Do you feel stressed (tense, restless, nervous, or anxious, or unable to sleep at night)? [id number] [email or web address] Information not available 10/01/2023 Family History Relationship [...] ICD10 Code Diagnosis IMO Codes Diagnosis Note [id number] Isidro Le MD [facility] [address],[place] [address] 04/20/2025 14:14:57 04/20/2025 15:23:54 care status [id number] Z34.83 [id number] Isidro Le MD [facility] [address],[place] [address] 05/05/2025 16:07:26 05/05/2025 17:26:18 care status 547116693 Z34.83 [id number] Isidro Le MD [facility] [address],[place] [address] 05/18/2025 15:16:07 05/18/2025 15:56:40 care: obstetric risk 020145645 O09.293 Z3A.32 [id number] Isidro Le MD [facility] [address],[place] [address] 05/18/2025 15:17:46 05/18/2025 16:51:15 care status 119251532 Z34.83 [id number] Health Concerns Section Related Observation LastModified by Organization Detai ls LastModified Time None Recorded Concern Status LastModified by Organization Details LastModified Time None Recorded Payers Encounter Date Sequence Insurance Name Policy Number Policy Vital Covered Member ID Vital Member ID Guarantor Name 05/18/2025 1 *SELF PAY* An maureen Bates Notes Date Note Type Note Provider Name and Address Organization Details Recorded Time 05/18/2025 text/html Generic HPI TemplateReported by Patient Isidro Le MD [address], [place], [address], [facility] 05/18/2025 16:46:49 OBGyn Episode Ob Episode Information Episode Created Date Number of Fetuses Patient Bloodtype Patient rh Status Prepregnancy Weight lbs Domestic Partner Domestic Partner Phone Father Name Entry Level Receptionist Status 03/17/20 25 1 B Positive OPEN Fetus Data First Name Last Name Admitted to NICU Weight (g) Sex Living Outcome Pediatric Complications Fetus ID Race Codes Race Delivery Type [id number] Problems Problem Notes + RPR tx spoke [...] , fax all labs to health dept [phone] . 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 Problem Name Start Date End Date Resolution Snomed Code Not e History of syphilis 03/17/2025 [id number] treated in previous pregnancytiters 05/2023 1:32 decreased to 1:8 03/17 Iron deficiency anemia 05/04/2025 [id number] hgg decreased to 9-3 Iron infusion order faxed 05/04 _ pending insurance) History of chlamydial infection 03/17/2025 [id number] Past history of pre-eclampsia 03/17/2025 [id number] recommended ASAprevious delivery PTL 36w6d 10/08/23 EDC 10/30/23 testing Finding of arrangement of fetus 06/13/2025 [id number] Transverse Jerome Calculation Initial Jerome Date Initial [...] Weight in lbs Pre/Post Dialysis Refused Weight 131.400818361388 BP Diastolic BP Location Tested BP Systolic [...] Weight in lbs Pre/Post Dialysis Refused Weight 131.158688724934 BP Diastolic BP Location Tested BP Systolic [...] Type Weight in lbs Pre/Post Dialysis Refused 133.648804273984 BP Diastolic BP Location Tested BP Systolic [...] Type Weight in lbs Pre/Post Dialysis Refused 135.64487344742 BP Diastolic BP Location Tested BP Systolic [...] Type Weight in lbs Pre/Post Dialysis Refused 135.66369124472 BP Diastolic BP Location Tested BP Systolic [...] Weight in lbs Pre/Post Dialysis Refused Weight 139.05742196905 BP Diastolic BP Location Tested BP Systolic BP Type 76 L arm 112 sitting Fetus Heart Rate Present Fetus Movement A Yes Comments Flowsheet Date 05/25/2025 Solorzano Score Blood Edema Fundus Height Fundus Units Glucose Ketones Leukocytes Nitrite Labor Signs Protein Cervic Dilation Cervic Effacement Cervic Station Type Weight in lbs Pre/Post Dialysis Refused Weight 149.38928568475 BP Diastolic BP Location Tested BP Systolic [...] Weight in lbs Pre/Post Dialysis Refused Weight 138.670858540480 BP Diastolic BP Location Tested BP Systolic BP Type 78 L arm 120 sitting Fetus Heart Rate Present A 139 Fetus Movement A Yes Comments was at [place] yesterday wi th ruiz and back pain [...] Type Weight in lbs Pre/Post Dialysis Refused 139.553348525761 BP Diastolic BP Location Tested BP Systolic BP Type 74 L arm 119 sitting Fetus Heart Rate Present Fetus Movement A Yes Comments Flowsheet Date 05/30/2025 Solorzano Score Blood Edema Fundus Height Fundus Units Glucose Ketones Leukocytes Nitrite Labor Signs Protein Cervic Dilation Cervic Effacement Cervic Station Type Weight in lbs Pre/Post Dialysis Refused 139.840961877946 BP Diastolic BP Location Tested BP Systolic [...] Type Weight in lbs Pre/Post Dialysis Refused 142.197093541517 BP Diastolic BP Location Tested BP Systolic [...] Type Weight in lbs Pre/Post Dialysis Refused 144.498590356128 BP Diastolic BP Location Tested BP Systolic BP Type 65 L arm 98 sitting Fetus Heart Rate Present Fetus Movement A Yes Comments Flowsheet Date 06/13/2025 Solorzano Score Blood Edema Fundus Height Fundus Units Glucose Ketones Leukocytes Nitrite Labor Signs Protein Cervic Dilation Cervic Effacement Cervic Station Type Weight in lbs Pre/Post Dialysis Refused 144.454998329939 BP Diastolic BP Location Tested BP Systolic [...] Weight in lbs Pre/Post Dialysis Refused Weight 144.92892010704 BP Diastolic BP Location Tested BP Systolic BP Type 64 L arm 104 sitting Fetus Heart Rate Present Fetus Movement A Yes Comments Flowsheet Date 06/20/2025 Solorzano Score Blood Edema Fundus Height Fundus Units Glucose Ketones Leukocytes Nitrite Labor Signs Protein Cervic Dilation Cervic Effacement Cervic Station Type Weight in lbs Pre/Post Dialysis Refused 144.718358887676 BP Diastolic BP Location Tested BP Systolic [...] Type Weight in lbs Pre/Post Dialysis Refused 147.667833108170 BP Diastolic BP Location Tested BP Systolic BP Type 70 L arm 104 sitting Fetus Heart Rate Present Fetus Movement A Yes Comments Flowsheet Date 06/27/2025 Solorzano Score Blood Edema Fundus Height Fundus Units Glucose Ketones Leukocytes Nitrite Labor Signs Protein Cervic Dilation Cervic Effacement Cervic Station Type Weight in lbs Pre/Post Dialysis Refused 147.947080534124 BP Diastolic BP Location Tested BP Systolic [...]
--- OUTSIDE RECORDS SUMMARY | 2025-07-01 06:19 | XMS_ITS | Continuity of Care Document ---
Author Organization [facility] Address [address] [place] [address] Assessment Encounter Date Assessment Date Assessment LastModified by Organization Details LastModified Time 05/18/2025 05/18/2025 Patient is ___weeks . Discussed plan. [email or web address] Not available 05/18/2025 16:05:22 Plan of Treatment Reminders Order Date Submit [...] Resul ting Lab: [facility] [address] [facility] [address] Tel: CULTU RE ----- ----- ----- --- No growt h in 1 day (dete ction level of 10,00 0 colon ies / ml.) Not Available [facility] (Lab) [address] [facility], [place], [address], 03/19/2025 07:23:20 03/17/20 25 03/17/2025 CBC W/DIF F WBC 5.0 10'3/ uL 3.5-[address] [facility] (Lab) [address], [place], [address], 03/21/2025 14:27:06 03/17/20 25 03/17/2025 CBC W/DIF F RBC 3.57 10'6/ uL (based on docume nted legal sex) 3.80-5 [address] [facility] (Lab) [address], [place], [address], 03/21/2025 14:27:06 03/17/20 25 03/17/2025 CBC W/DIF F HGB 10.5 g/dL (based on docume nted legal sex) 11.6-1 [address] [facility] (Lab) [address] [place], [address], 03/21/2025 14:27:06 03/17/20 25 03/17/2025 CBC W/DIF F HCT 30.2 % (based on docume nted legal sex) 34.0-[address] [facility] (Lab) [address], [place], [address], 03/21/2025 14:27:06 03/17/20 25 03/17/2025 CBC W/DIF F MCV 84.6 fL 80.0-[address] [facility] (Lab) [address], [place], [address], 03/21/2025 14:27:06 03/17/20 25 03/17/2025 CBC W/DIF F MCH 29.4 pg 27.0-[address] [facility] (Lab) [address], [place], [address], 03/21/2025 14:27:06 03/17/20 25 03/17/2025 CBC W/DIF F MCHC 34.8 g/dL 32.0-[address] [facility] (Lab) [address], [place], [address], 03/21/2025 14:27:06 03/17/20 25 03/17/2025 CBC W/DIF F RDW 13.3 % 11.0-[address] [facility] (Lab) [address], [place], [address], 03/21/2025 14:27:06 03/17/20 25 03/17/2025 CBC W/DIF F plt 235 10'3/ uL 150-[address] [facility] (Lab) [address], [place], [address], 03/21/2025 14:27:06 03/17/20 25 03/17/2025 CBC W/DIF F MPV 10.4 fL 8.8-[address] [facility] (Lab) [address], [place], [address], 03/21/2025 14:27:06 03/17/20 25 03/17/2025 CBC W/DIF F NRBC's 0.0 % 0.[address] [facility] (Lab) [address], [place], [address], 03/21/2025 14:27:06 03/17/20 25 03/17/2025 CBC W/DIF F absolute NRBCs 0.0 10'3/ uL no refere nce range establ ished Not Available [facility] (Lab) [address], [place], [address], 03/21/2025 14:27:06 03/17/20 25 03/17/2025 CBC W/DIF F neutrophils 72.4 % 34.0-[address] [facility] (Lab) [address], [place], [address], 03/21/2025 14:27:06 03/17/20 25 03/17/2025 CBC W/DIF F lymphocytes 14.4 % 15.0-5 0[address] [facility] (Lab) [address], [place], [address], 03/21/2025 14:27:06 03/17/20 25 03/17/2025 CBC W/DIF F monocytes 6.6 % 1.0-[address] [facility] (Lab) [address], [place], [address], 03/21/2025 14:27:06 03/17/20 25 03/17/2025 CBC W/DIF F eosinophils 5.2 % 0.0-8. [address] [facility] (Lab) [address] [place], [address], 03/21/2025 14:27:06 03/17/20 25 03/17/2025 CBC W/DIF F basophils 0.4 % 0.0-2. [address] [facility] (Lab) [address], [place], [address], 03/21/2025 14:27:06 03/17/20 25 03/17/2025 CBC W/DIF [...] ately if prese nt. Not Available [facility] (Lab) [address], [place], [address], 03/21/2025 14:27:06 03/17/20 25 03/17/2025 CBC W/DIF F absolute neutrophils 3.6 10'3/ uL 1.5-8. [address] [facility] (Lab) [address], [place], [address], 03/21/2025 14:27:06 03/17/20 25 03/17/2025 CBC W/DIF F absolute lymphocytes 0.7 10'3/ uL 1.0-4. [address] [facility] (Lab) [address], [place], [address], 03/21/2025 14:27:06 03/17/20 25 03/17/2025 CBC W/DIF F absolute monocytes 0.3 10'3/ uL 0.2-1. [address] [facility] (Lab) [address], [place], [address], 03/21/2025 14:27:06 03/17/20 25 03/17/2025 CBC W/DIF F absolute eosinophils 0.3 10'3/ uL 0.0-0. [address] [facility] (Lab) [address], [place], [address], 03/21/2025 14:27:06 03/17/20 25 03/17/2025 CBC W/DIF F absolute basophils 0.0 10'3/ uL 0.0-0. [address] [facility] (Lab) [address], [place], [address], 03/21/2025 14:27:06 03/17/20 25 03/17/2025 CBC W/DIF [...] urenaand book. nm.or g/gen derx Not Available [facility] (Lab) [address], [place], [address], 03/21/2025 14:27:06 03/17/2003/17/2025 HIV 1/2 ANTIG EN/AN TIBOD Y, REFLE X CONFI RMATI ON HIV antigen/anti body Nonrea ctive nonrea ctive HIV-1 antig en and HIV-1 /HIV- 2 antib odies were not detec jluis. No labor atory evide nce of HIV infec tion. Not Available [facility] (Lab) [address], [place], [address], 03/21/2025 14:27:06 03/17/2003/17/2025 HEPAT ITIS B SURFA CE ANTIG EN hepatitis B surface antigen Non-re active non-re active This assay was perfo rmed using [facility] [employer] ratio n reage nts and test kits. Value s obtai gayla with other assay metho ds or kits canno t be used inter lee eably . Not Available [facility] (Lab) [address], [place], [address], 03/21/2025 14:27:07 03/17/20 25 03/17/2025 HEPAT ITIS C ANTIB ELOISE SCREE N, REFLE X TO CONFI RMATI ON hepatitis C antibody Non-re active non-re active Antib odies to HCV Not Detec jluis, does not exclu de the possi bilit y of expos ure to HCV. Not Available [facility] (Lab) [address], [place], [address], 03/21/2025 14:27:07 03/17/20 25 03/17/2025 RUBEL LA IGG ANTIB ELOISE, QUANT rubella antibodies, IgG Reacti ve reacti ve Not Available [facility] (Lab) [address] , [place], [address], 03/21/2025 14:27:08 03/17/20 25 03/17/2025 RUBEL LA IGG ANTIB EOLISE, QUANT rubella antibodies, IgG quant 14.2 IU/mL >=10 Non-r eacti ve (Non- Immun e) <10 IU/mL React reyna (Immu ne) > or = 10 IU/mL Not Available [facility] (Lab) [address], [place], [address], 03/21/2025 14:27:08 03/17/20 25 03/17/2025 TYPE/ RH/SC REEN ABO/Rh type B POS Not Available [facility] (Lab) [address], [place], [address], 03/21/2025 14:27:08 03/17/20 25 03/17/2025 TYPE/ RH/SC REEN antibody screen NEG Not Available [facility] (Lab) [address], [place], [address], 03/21/2025 14:27:08 03/17/20 25 03/17/2025 TYPE/ RH/SC REEN exp date 2024 23:[address] [facility] (Lab) [address], [place], [address], 03/21/2025 14:27:08 03/17/20 25 03/17/2025 HEMOG LOBIN [...] Actio n sugge sted Not Available [facility] (Lab) [address], [place], [address], 03/21/2025 14:27:09 03/17/20 25 03/17/2025 RPR SCREE [...] (TP-P A) testi ng. Not Available [facility] (Lab) [address], [place], [address], 03/21/2025 14:27:09 03/17/20 25 03/17/2025 RPR SCREE N, REFLE X TITER /CONF IRMAT ION RPR titer 1:8 . none high Not Available [facility] (Lab) [address], [place], [address], 03/21/2025 14:27:09 03/17/20 25 03/17/2025 SYPHI LIS [...] and resul ts, see: https ://ganesh sena [employer] / it-mm files /Syph ilis_ Serol ogy_A lgori thm.p df ----- ----- ----- ----A DDITI ONAL INFOR SHAJI N---- ----- ----- ----- This test is inten ded to be used as a confi rmato ry test on sampl es that have been teste d by [facility] syphi lis test. Test Perfo rmed by: [facility] [place] [address], [place] [address] Lab Direc tor: Jay Manzano nn Ph.D. ; CLIA# [id number] [facility] (Lab) [address], [place], [address], 03/21/2025 14:27:10 03/29/2003/29/2025 CT/GC AND TRICH OMONA S VAGIN SILVA (RRNA ), URINE chlamydia trachomatis, PCR Negati ve negati ve Not Available [facility] (Lab) [address], [place], [address], 03/30/2025 14:21:33 03/29/20 25 03/29/2025 CT/GC AND TRICH OMONA S VAGIN SILVA (RRNA ), URINE neisseria gonorrhoeae, PCR Negati ve negati ve Not Available [facility] (Lab) [address], [place], [address], 03/30/2025 14:21:33 03/29/20 25 03/29/2025 CT/GC AND TRICH OMONA S VAGIN SILVA (RRNA ), URINE trichomonas vaginalis ribosomal RNA (rrna) Negati ve negati ve Not Available [facility] (Lab) [address], [place], [address], 03/30/2025 14:21:33 04/20/20 25 04/20/2025 HEMAT OCRIT (HCT) HCT 29.1 % (based on docume nted legal sex) 34.0-[address] [facility] (Lab) [address], [place], [address], 04/23/2025 15:25:44 04/20/2004/20/2025 HEMOG LOBIN (HGB) HGB 9.3 g/dL (based on docume nted legal sex) 11.6-[address] [facility] (Lab) [address], [place], [address], 04/23/2025 15:25:45 04/20/2004/20/2025 HIV 1/2 ANTIG EN/AN TIBOD Y, REFLE X CONFI RMATI ON HIV antigen/anti body Nonrea ctive nonrea ctive HIV-1 antig en and HIV-1 /HIV- 2 antib odies were not detec jluis. No labor atory evide nce of HIV infec tion. Not Available [facility] (Lab) [address], [place], [address], 04/23/2025 15:25:45 04/20/2004/20/2025 RPR SCREE N, REFLE [...] (TP-P A) testi ng. Not Available [facility] (Lab) [address], [place], [address], 04/23/2025 15:25:46 04/20/20 25 04/20/2025 RPR SCREE N, REFLE X TITER /CONF IRMAT ION RPR titer 1:8 . none high Not Available [facility] (Lab) [address], [place], [address], 04/23/2025 15:25:46 04/20/20 25 04/20/2025 SYPHI LIS [...] and resul ts, see: https ://ganesh sena [employer] / it-mm files /Syph ilis_ Serol ogy_A lgori thm.p df ----- ----- ----- ----A DDITI ONAL INFOR MATSUELLEN N---- ----- ----- ----- This test is inten ded to be used as a confi rmato ry test on sampl es that have been teste d by [facility] syphi lis test. Test Perfo rmed by: [facility] - [place] [address] , [place] [address] Lab Direc tor: Jay Manzano nn Ph.D. ; CLIA# [id number] [facility] (Lab) [address], [place], [address], 04/23/2025 15:25:46 03/17/2003/17/2025 US, obste tric, 2nd or 3rd trime ster No observ ation record ed. [email or web address] [address], [place], [address], 03/17/2025 15:45:06 03/17/20 25 03/17/2025 US, obste tric, 2nd or 3rd trime ster No observ ation record ed. [email or web address] [facility] [address], [place], [address], 03/17/2025 12:51:02 03/17/20 25 03/17/2025 US, obste tric, 2nd or 3rd trime ster No observ ation record ed. [email or web address] Staci [address] [facility] [address], [place], [address], 04/07/2025 21:57:11 03/17/20 25 03/17/2025 US, obste tric, 2nd or 3rd trime ster No observ ation record ed. St[facility] [address], [place], [address], 03/17/2025 23:04:51 03/17/20 25 03/17/2025 US, obste tric, 2nd or 3rd trime ster No observ ation record ed. [email or web address] [facility] [address], [place], [address], 03/17/2025 15:45:46 03/17/20 25 03/17/2025 US, obste tric, 2nd or 3rd trime ster No observ ation record ed. [email or web address] [facility] [address], [place], [address], 03/18/2025 17:16:02 05/18/20 25 05/18/2025 US, obste tric, follo w-up No observ ation record ed. [email or web address] [facility] [address], [place], [address], 05/18/2025 18:23:17 05/18/20 25 05/18/2025 US, obste tric, follo w-up No observ ation record ed. [email or web address] [facility] [address], [place], [address], 05/20/2025 13:20:22 05/25/2005/25/2025 US, obste tric, bioph ysica l profi le + non-s tress test No observ ation record ed. [email or web address] [facility] [address], [place], [address], 05/25/2025 17:34:34 05/25/2005/25/2025 US, obste tric, follo w-up No observ ation record ed. [email or web address] [facility] [address], [place], [address], 05/26/2025 14:44:53 05/25/2005/25/2025 non-s tress test No observ ation record ed. [email or web address] [facility] [address], [place], [address], 05/25/2025 18:39:52 05/25/20 non-s tress test No observ ation record ed. [email or web address] [facility] [address], [place], [address], 05/25/2025 17:32:07 05/30/2005/30/2025 US, obste tric, bioph ysica l profi le + non-s tress test No observ ation record ed. [email or web address] [facility] [address], [place], [address], 05/30/2025 12:42:17 05/30/2005/30/2025 US, obste tric, bioph ysica l profi le + non-s tress test No observ ation record ed. [email or web address] [facility] [address], [place], [address], 05/30/2025 17:35:43 05/30/2005/30/2025 non-s tress test No observ ation record ed. [email or web address] [facility] [address], [place], [address], 05/30/2025 13:00:42 05/30/20 non-s tress test No observ ation record ed. [email or web address] [facility] [address], [place], [address], 05/30/2025 13:02:59 06/06/2006/06/2025 US, obste tric, bioph ysica l profi le + non-s tress test No observ ation record ed. [email or web address] [facility] [address], [place], [address], 06/06/2025 14:28:11 06/06/2006/06/2025 US, obste tric, bioph ysica l profi le + non-s tress test No observ ation record ed. [email or web address] [facility] [address], [place], [address], 06/06/2025 15:10:23 06/07/20 25 2025 non-s tress test No observ ation record ed. [email or web address] [facility] [address], [place], [address], 2025 20:27:42 06/07/20 non-s tress test No observ ation record ed. [email or web address] Not Available 2024 15:33:58 06/13/2006/13/2025 US, obste tric, follo w-up No observ ation record ed. [email or web address] [facility] [address], [place], [address], 06/14/2025 10:34:08 06/13/20 25 06/13/2025 non-s tress test No observ ation record ed. PATRICIA [facility] [address], [place], [address], 06/19/2025 18:04:34 06/13/20 non-s tress test No observ ation record ed. [email or web address] [facility] [address], [place], [address], 06/13/2025 18:04:44 06/13/2006/14/2025 US, obste tric, follo w-up No observ ation record ed. [facility] [address], [place], [address], 06/14/2025 13:38:03 06/13/2006/14/2025 US, obste tric, bioph ysica l profi le + non-s tress test No observ ation record ed. [facility] [address], [place], [address], 06/14/2025 13:38:17 06/15/2006/07/2025 non-s tress test No observ ation record ed. [facility] [address], [place], [address], 06/17/2025 09:42:27 06/20/2006/20/2025 US, obstjesús tric, bioph ysica l profi le + non-s tress test No observ ation record ed. [email or web address] [facility] [address], [place], [address], 06/20/2025 13:28:54 06/20/2006/20/2025 US, obste tric, follo w-up No observ ation record ed. [email or web address] [facility] [address] [place] [address] [address], [place], [address], 06/20/2025 16:32:26 11/03/06/20/2025 non-s tress test No observ ation record ed. [email or web address] [facility] [address], [place], [address], 06/20/2025 18:00:22 06/20/20 25 non-s tress test No observ ation record ed. [address], [place], [address], 06/20/2025 17:57:42 06/27/20 25 06/27/2025 US, obste tric, bioph ysica l profi le No observ ation record ed. [email or web address] [facility] [address], [place], [address], 06/28/2025 11:16:29 06/27/20 25 06/27/2025 US, obste tric, bioph ysica l profi le + non-s tress test No observ ation record ed. [facility] [address], [place], [address], 06/27/2025 18:49:37 06/27/20 25 06/27/2025 non-s tress test No observ ation record ed. [facility] [address], [place], [address], 06/27/2025 18:50:27 06/27/20 25 non-s tress test No observ ation record ed. [address], [place], [address], 06/27/2025 12:29:10 Result Notes None recorded. Problems Name Problem SNOMED Code Status Onset Date Resolution Date Notes Provider Name and Address Organization Details Recorded Time Anemia 700010065 Completed Trino serrano, [facility] 13:00:34 Pre-ecla mpsia 359123694 Completed 37w Delivery , 2x/wk antenata l testing Trino Moulton [facility] 4 13:00:34 Group B Streptoc occus carrier [id number] 103 Completed AMP in labor Trino Moulton [facility] 4 13:00:33 Pregnanc y 10598338 Completed 202210/27/2023 Jazz Somers [facility] 5 12:31:25 Syphilis 62394440 Completed 2022 no s/s, +fta abs- tx schedule d 06/05,, 2 Trino Muolton [facility] 4 13:00:34 Infectio n by Trichomo gwen [id number] Completed 2022 2/2 positive - tinidazo le tx 2/5 - [facility] 4 13:00:34 Gonorrhe a 24358215 Completed 2022 PA sent 08/20 for Ceftriax one - [facility]ONEN NEGATIVE [facility] 13:00:34 Pregnanc y 53101990 Active 2024 Jazz Somers [facility] 5 12:31:25 Past pregnanc y history of pre-ecla mpsia 0718768785 86379 Active 2024 recommen ded ASA previous delivery PTL 36w6d 10/08/23 EDC 10/30/23 antenata l testing Juana Warner [facility] 5 11:26:48 History of syphilis [id number] 026917 Active 2024 treated in previous pregnanc y titers 05/2023 1:32 decrease d to 1:8 03/17 Juana Green null, [facility] 5 11:51:07 History of chlamydi al infectio n 005633685 Active 2024 Isidro Le MD [address], [place], [address], [facility] 5 12:53:43 Iron deficien cy anemia 92712215 Active 2024 hgg decrease d 731 to 9-3 Iron infusion order faxed 05/04 _ pending insuranc e) Juana serrano, [facility] 5 11:03:51 Finding of arrangem ent of fetus 93298813 Active 2024 Transver se Isidro Le MD [address], [place], [address], [facility] 5 17:33:30 Problem Notes None [...] Address Organization Details Last Updated DateTime 05/18/2025 92089.57995 g 115/74 mm[Hg] Christine Lamb [facility] 05/18/2025 16:06:07 Social History Question Answer Notes LastModified by Organizat ion Details LastModified Time Tobacco Smoking Status Never Smoker Jacqueline serrano, [facility] 03/07/2023 14:21:17 Are You Blind Or Do You Have Difficulty Seeing? No [email or web address] Information n ot available 10/01/2023 What Is Your Level Of Caffeine Consumption? Occasional [email or web address] Information not available 10/01/2023 How Much Tobacco Do You Chew? None [email or web address] Information not available 10/01/2023 In The 14 Days Before Symptom Onset, Have You Had Close Contact With A Laboratory-confirm ed COVID-19 While That Case Was Ill? No [email or web address] Information n ot available 10/01/2023 In The 14 Days Before Symptom Onset, Have You Had Close Contact With A Person Who Is Under Investigation For COVID-19 While That Person Was Ill? No [email or web address] Information not available 10/01/2023 Have You Been To An Area Known To Be High Risk For COVID-19? No Information not available 10/01/2023 Are You Deaf Or Do You Have Serious Difficulty Hearing? No [email or web address] Information not available 10/01/2023 What Type Of Diet Are You Following? REGULAR [email or web address] Information n ot available 10/01/2023 What Is The Highest Grade Or Level Of School You Have Completed Or The Highest Degree You Have Received? [id number] [email or web address] Information not available 10/01/2023 Are There Any Guns Present In Your Home? No [email or web address] Information not available 10/01/2023 Do You Use Protection During Sex? Usually [email or web address] Information not available 10/01/2023 Do You Use Your Seat Belt Or Car Seat Routinely? Yes [email or web address] Information not available 10/01/2023 Do You Have Smoke And Carbon Monoxide Detectors In Your Home? No [email or web address] Information not available 10/01/2023 How Much Tobacco Do You Smoke? No [email or web address] Information not available 10/01/2023 Do You Use Sunscreen Routinely? No Information not available 10/01/2023 Have You Used IV Drugs? No [email or web address] Information not available 10/01/2023 Do You Have Difficulty Walking Or Climbing Stairs? No [email or web address] Information not available 10/01/2023 Sex: Unknown Functional Status Question Answer Note LastModified by Organizat ion Details LastModified Time Do you use any illicit or recreational drugs? No [email or web address] Information not available 10/01/2023 What is your level of alcohol consumption? None [email or web address] Information not available 10/01/2023 Are you able to walk independently without assistance or assistive devices? [email or web address] Information not available 10/01/2023 Are you able to care for yourself independently? Yes [email or web address] Information not available 10/01/2023 Do you have difficulty dressing, bathing, grooming, or toileting? No [email or web address] Information not available 10/01/2023 What is your exercise level? Moderate [email or web address] Information not available 10/01/2023 Mental Status Question Answer Note LastModified by Organization D etails LastModified Time Do you feel stressed (tense, restless, nervous, or anxious, or unable to sleep at night)? [id number] [email or web address] Information not available 10/01/2023 Family History Relationship [...] ICD10 Code Diagnosis IMO Codes Diagnosis Note [id number] MD Clay Aragon [address],[facility] [place] [address] 04/20/2025 14:14:57 04/20/2025 15:23:54 care status [id number] Z34.83 [id number] Isidro Le MD Schuyler [address],[place] [address] 05/05/2025 16:07:26 05/05/2025 17:26:18 care status [id number] Z34.83 [id number] Isidro Le MD Schuyler [address],[place] [address] 05/18/2025 15:16:07 05/18/2025 15:56:40 care: obstetric risk [id number] O09.293 Z3A.32 [id number] Isidro Le MD Schuyler [address],[place] [address] 05/18/2025 15:17:46 05/18/2025 16:51:15 care status [id number] Z34.83 [id number] Health Concerns Section Related Observation LastModified by [...] Patient Isidro Le MD [address], [place], [address], [facility] 05/18/2025 16:46:49 OBGyn Episode Ob Episode Information Episode Created Date Number of Fetuses Patient Bloodtype Patient rh Status Prepregnancy Weight lbs Domestic Partner Domestic Partner Phone Father Name Frozen [employer] Status 03/17/20 25 1 B Positive OPEN Fetus Data First Name Last Name Admitted to NICU Weight (g) Sex Living Outcome Pediatric Complications Fetus ID Race Codes Race Delivery Type [id number] Problems Problem Notes + RPR tx spoke [...] , fax all labs to health dept [phone] . 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 03/31 pt denies sx's JGBilateral double renal artery Problem Name Start Date End Date Resolution Snomed Code Not e History of syphilis 03/17/2025 [id number] treated in previous pregnancytiters 05/2023 1:32 decreased to 1:8 03/17 Iron deficiency anemia 05/04/2025 [id number] hgg decreased to 9-3 Iron infusion order faxed 05/04 _ pending insurance) History of chlamydial infection 03/17/2025 [id number] Past history of pre-eclampsia 03/17/2025 [id number] recommended ASAprevious delivery PTL 36w6d 10/08/23 EDC 10/30/23 testing Finding of arrangement of fetus 06/13/2025 [id number] Transverse Jerome Calculation Initial Jerome Date Initial [...] Weight in lbs Pre/Post Dialysis Refused Weight 131.869598137164 BP Diastolic BP Location Tested BP Systolic [...] Weight in lbs Pre/Post Dialysis Refused Weight 131.819829651580 BP Diastolic BP Location Tested BP Systolic [...] Type Weight in lbs Pre/Post Dialysis Refused 133.310829764834 BP Diastolic BP Location Tested BP Systolic [...] Type Weight in lbs Pre/Post Dialysis Refused 135.29801759233 BP Diastolic BP Location Tested BP Systolic [...] Type Weight in lbs Pre/Post Dialysis Refused 135.49204412519 BP Diastolic BP Location Tested BP Systolic [...] Weight in lbs Pre/Post Dialysis Refused Weight 139.37238141945 BP Diastolic BP Location Tested BP Systolic BP Type 76 L arm 112 sitting Fetus Heart Rate Present Fetus Movement A Yes Comments Flowsheet Date 05/25/2025 Solorzano Score Blood Edema Fundus Height Fundus Units Glucose Ketones Leukocytes Nitrite Labor Signs Protein Cervic Dilation Cervic Effacement Cervic Station Type Weight in lbs Pre/Post Dialysis Refused Weight 149.11306586522 BP Diastolic BP Location Tested BP Systolic [...] Weight in lbs Pre/Post Dialysis Refused Weight 138.232450519579 BP Diastolic BP Location Tested BP Systolic BP Type 78 L arm 120 sitting Fetus Heart Rate Present A 139 Fetus Movement A Yes Comments was at [place] yesterday wi th ruiz and back pain [...] Type Weight in lbs Pre/Post Dialysis Refused 139.903692465093 BP Diastolic BP Location Tested BP Systolic BP Type 74 L arm 119 sitting Fetus Heart Rate Present Fetus Movement A Yes Comments Flowsheet Date 05/30/2025 Solorzano Score Blood Edema Fundus Height Fundus Units Glucose Ketones Leukocytes Nitrite Labor Signs Protein Cervic Dilation Cervic Effacement Cervic Station Type Weight in lbs Pre/Post Dialysis Refused 139.403425441115 BP Diastolic BP Location Tested BP Systolic [...] Type Weight in lbs Pre/Post Dialysis Refused 142.160422155218 BP Diastolic BP Location Tested BP Systolic [...] Type Weight in lbs Pre/Post Dialysis Refused 144.499731849379 BP Diastolic BP Location Tested BP Systolic BP Type 65 L arm 98 sitting Fetus Heart Rate Present Fetus Movement A Yes Comments Flowsheet Date 06/13/2025 Solorzano Score Blood Edema Fundus Height Fundus Units Glucose Ketones Leukocytes Nitrite Labor Signs Protein Cervic Dilation Cervic Effacement Cervic Station Type Weight in lbs Pre/Post Dialysis Refused 144.306914863152 BP Diastolic BP Location Tested BP Systolic [...] Weight in lbs Pre/Post Dialysis Refused Weight 144.83294415449 BP Diastolic BP Location Tested BP Systolic BP Type 64 L arm 104 sitting Fetus Heart Rate Present Fetus Movement A Yes Comments Flowsheet Date 06/20/2025 Solorzano Score Blood Edema Fundus Height Fundus Units Glucose Ketones Leukocytes Nitrite Labor Signs Protein Cervic Dilation Cervic Effacement Cervic Station Type Weight in lbs Pre/Post Dialysis Refused 144.093322067883 BP Diastolic BP Location Tested BP Systolic [...] Type Weight in lbs Pre/Post Dialysis Refused 147.282709238702 BP Diastolic BP Location Tested BP Systolic BP Type 70 L arm 104 sitting Fetus Heart Rate Present Fetus Movement A Yes Comments Flowsheet Date 06/27/2025 Solorzano Score Blood Edema Fundus Height Fundus Units Glucose Ketones Leukocytes Nitrite Labor Signs Protein Cervic Dilation Cervic Effacement Cervic Station Type Weight in lbs Pre/Post Dialysis Refused 147.571171114893 BP Diastolic BP Location Tested BP Systolic [...]
--- OUTSIDE RECORDS SUMMARY | 2025-07-01 06:19 | XMS_ITS | Continuity of Care Document ---
Author Organization [facility] Address [address] [place] [address] [place] [address] Assessment No assessment recorded. Plan of Treatment [...] d. Imaging non-str ess test 2024 025 [email or web address] [address], [address], [place], [address], 06/14/2025 09:09:28 Medication Orders None recorde d. Patient TargetsNo [...] Resul ting Lab: [facility] [address] [facility] [address] Tel: CULTU RE ----- ----- ----- --- No growt h in 1 day (dete ction level of 10,00 0 colon ies / ml.) Not Available [facility] (Lab) [address], [place], [address], 03/19/2025 07:23:20 03/17/20 25 03/17/2025 CBC W/DIF F WBC 5.0 10'3/ uL 3.5-10 .5 Not Available [facility] (Lab) [address], [place], [address], 03/21/2025 14:27:06 03/17/20 25 03/17/2025 CBC W/DIF F RBC 3.57 10'6/ uL (based on docume nted legal sex) 3.80-5 .20 low Not Available [facility] (Lab) [address], [place], [address], 03/21/2025 14:27:06 03/17/20 25 03/17/2025 CBC W/DIF F HGB 10.5 g/dL (based on docume nted legal sex) 11.6-1 5.4 low Not Available [facility] (Lab) [address], [place], [address], 03/21/2025 14:27:06 03/17/20 25 03/17/2025 CBC W/DIF F HCT 30.2 % (based on docume nted legal sex) 34.0-4 5.0 low Not Available [facility] (Lab) [address], [place], [address], 03/21/2025 14:27:06 03/17/20 25 03/17/2025 CBC W/DIF F MCV 84.6 fL 80.0-9 9.0 Not Available [facility] (Lab) [address], [place], [address], 03/21/2025 14:27:06 03/17/20 25 03/17/2025 CBC W/DIF F MCH 29.4 pg 27.0-3 4.0 Not Available [facility] (Lab) [address], [place], [address], 03/21/2025 14:27:06 03/17/20 25 03/17/2025 CBC W/DIF F MCHC 34.8 g/dL 32.0-3 5.5 Not Available [facility] (Lab) [address], [place], [address], 03/21/2025 14:27:06 03/17/20 25 03/17/2025 CBC W/DIF F RDW 13.3 % 11.0-1 5.0 Not Available [facility] (Lab) [address], [place], [address], 03/21/2025 14:27:06 03/17/20 25 03/17/2025 CBC W/DIF F plt 235 10'3/ uL 150-40 0 Not Available [facility] (Lab) [address], [place], [address], 03/21/2025 14:27:06 03/17/20 25 03/17/2025 CBC W/DIF F MPV 10.4 fL 8.8-12 .1 Not Available [facility] (Lab) [address], [place], [address], 03/21/2025 14:27:06 03/17/20 25 03/17/2025 CBC W/DIF F NRBC's 0.0 % 0.0 Not Available [facility] (Lab) [address], [place], [address], 03/21/2025 14:27:06 03/17/20 25 03/17/2025 CBC W/DIF F absolute NRBCs 0.0 10'3/ uL no refere nce range establ ished Not Available [facility] (Lab) [address], [place], [address], 03/21/2025 14:27:06 03/17/20 25 03/17/2025 CBC W/DIF F neutrophils 72.4 % 34.0-7 3.0 Not Available [facility] (Lab) [address] [place], [address], 03/21/2025 14:27:06 03/17/20 25 03/17/2025 CBC W/DIF F lymphocytes 14.4 % 15.0-5 0.0 low Not Available [facility] (Lab) [address] [facility] [facility], [place], [address], 03/21/2025 14:27:06 03/17/20 25 03/17/2025 CBC W/DIF F monocytes 6.6 % 1.0-15 .0 Not Available [facility] (Lab) [address] [facility] [address], [place], [address], 03/21/2025 14:27:06 03/17/20 25 03/17/2025 CBC W/DIF F eosinophils 5.2 % 0.0-8. 0 Not Available [facility] (Lab) [address], [place], [address], 03/21/2025 14:27:06 03/17/20 25 03/17/2025 CBC W/DIF F basophils 0.4 % 0.0-2. 0 Not Available [facility] (Lab) [address], [place], [address], 03/21/2025 14:27:06 03/17/20 25 03/17/2025 CBC W/DIF [...] separ ately if prese nt. Not Available [facility] (Lab) [address] [facility] [address], [place], [address], 03/21/2025 14:27:06 03/17/20 25 03/17/2025 CBC W/DIF F absolute neutrophils 3.6 10'3/ uL 1.5-8. 0 Not Available [facility] (Lab) [address] [facility] [facility], [place], [address], 03/21/2025 14:27:06 03/17/20 25 03/17/2025 CBC W/DIF F absolute lymphocytes 0.7 10'3/ uL 1.0-4. 0 low Not Available [facility] (Lab) [address], [place], [address], 03/21/2025 14:27:06 03/17/20 25 03/17/2025 CBC W/DIF F absolute monocytes 0.3 10'3/ uL 0.2-1. 0 Not Available [facility] (Lab) [address] [facility], [place], [address], 03/21/2025 14:27:06 03/17/20 25 03/17/2025 CBC W/DIF F absolute eosinophils 0.3 10'3/ uL 0.0-0. 6 Not Available [facility] (Lab) [address] [facility] [facility], [place], [address], 03/21/2025 14:27:06 03/17/20 25 03/17/2025 CBC W/DIF F absolute basophils 0.0 10'3/ uL 0.0-0. 3 Not Available [facility] (Lab) [address] [facility] [facility] [address], [place], [address], 03/21/2025 14:27:06 03/17/20 25 03/17/2025 CBC W/DIF [...] bhand book. nm.or g/gen derx Not Available [facility] (Lab) [address], [place], [address], 03/21/2025 14:27:06 03/17/2003/17/2025 HIV 1/2 ANTIG EN/AN TIBOD Y, REFLE X CONFI RMATI ON HIV antigen/anti body Nonrea ctive nonrea ctive HIV-1 antig en and HIV-1 /HIV- 2 antib odies were not detec jluis. No labor atory evide nce of HIV infec tion. Not Available [facility] (Lab) [address], [place], [address], 03/21/2025 14:27:06 03/17/20 25 03/17/2025 HEPAT ITIS B SURFA CE ANTIG EN hepatitis B surface antigen Non-re active non-re active This assay was perfo rmed using [facility] [employer] ratio n reage nts and test kits. Value s obtai gayla with other assay metho ds or kits canno t be used inter lee eably . Not Available [facility] (Lab) [address], [place], [address], 03/21/2025 14:27:07 03/17/20 25 03/17/2025 HEPAT ITIS C ANTIB ELOISE SCREE N, REFLE X TO CONFI RMATI ON hepatitis C antibody Non-re active non-re active Antib odies to HCV Not Detec jluis, does not exclu de the possi bilit y of expos ure to HCV. Not Available [facility] (Lab) [address] [place], [address], 03/21/2025 14:27:07 03/17/20 25 03/17/2025 RUBEL LA IGG ANTIB ELOISE, QUANT rubella antibodies, IgG Reacti ve reacti ve Not Available [facility] (Lab) [address] [facility], [place], [address], 03/21/2025 14:27:08 03/17/20 25 03/17/2025 RUBEL LA IGG ANTIB ELOISE, QUANT rubella antibodies, IgG quant 14.2 IU/mL >=10 Non-r eacti ve (Non- Immun e) <10 IU/mL React reyna (Immu ne) > or = 10 IU/mL Not Available [facility] (Lab) [address] [facility] [facility], [place], [address], 03/21/2025 14:27:08 03/17/20 25 03/17/2025 TYPE/ RH/SC REEN ABO/Rh type B POS Not Available [facility] (Lab) [address], [place], [address], 03/21/2025 14:27:08 03/17/20 25 03/17/2025 TYPE/ RH/SC REEN antibody screen NEG Not Available [facility] (Lab) [address], [place], [address], 03/21/2025 14:27:08 03/17/20 25 03/17/2025 TYPE/ RH/SC REEN exp date 2024 23:59 Not Available [facility] (Lab) [address], [place], [address], 03/21/2025 14:27:08 03/17/20 25 03/17/2025 HEMOG LOBIN [...] >8.0% Actio n sugge sted Not Available [facility] (Lab) [address], [place], [address], 03/21/2025 14:27:09 03/17/20 25 03/17/2025 RPR SCREE [...] ion (TP-P A) testi ng. Not Available [facility] (Lab) [address], [place], [address], 03/21/2025 14:27:09 03/17/20 25 03/17/2025 RPR SCREE N, REFLE X TITER /CONF IRMAT ION RPR titer 1:8 . none high Not Available [facility] (Lab) [address], [place], [address], 03/21/2025 14:27:09 03/17/20 25 03/17/2025 SYPHI LIS [...] of the syphi lis rever [facility] and resul ts, see: https ://ganesh sena [employer] / it-mm files /Syph ilis_ Serol ogy_A lgori thm.p df ----- ----- ----- ----A DDITI ONAL INFOR MATNOHEMY N---- ----- ----- ----- This test is inten ded to be used as a confi rmato ry test on sampl es that have been teste d by [facility] syphi lis test. Test Perfo rmed by: [facility] - [place] [address], [place] [address] Lab Direc tor: Jay Manzano nn Ph.D. ; CLIA# [id number] Not Available [facility] (Lab) [address] [facility] [facility], [place], [address], 03/21/2025 14:27:10 03/29/2003/29/2025 CT/GC AND TRICH OMONA S VAGIN SILVA (RRNA ), URINE chlamydia trachomatis, PCR Negati ve negati ve Not Available [facility] (Lab) [address] [place], [address], 03/30/2025 14:21:33 03/29/2003/29/2025 CT/GC AND TRICH OMONA S VAGIN SILVA (RRNA ), URINE neisseria gonorrhoeae, PCR Negati ve negati ve Not Available [facility] (Lab) [address] [place], [address], 03/30/2025 14:21:33 03/29/20 25 03/29/2025 CT/GC AND TRICH OMONA S VAGIN SILVA (RRNA ), URINE trichomonas vaginalis ribosomal RNA (rrna) Negati ve negati ve Not Available [facility] (Lab) [address] [place], [address], 03/30/2025 14:21:33 04/20/2004/2004/20/2025 HEMAT OCRIT (HCT) HCT 29.1 % (based on docume nted legal sex) 34.0-4 5.0 low Not Available [facility] (Lab) [address] [facility], [place], [address], 04/23/2025 15:25:44 04/20/20 25 04/20/2025 HEMOG LOBIN (HGB) HGB 9.3 g/dL (based on docume nted legal sex) 11.6-1 5.4 low Not Available [facility] (Lab) [address] [facility] [address] [facility] [address], [place], [address], 04/23/2025 15:25:45 04/20/20 25 04/20/2025 HIV 1/2 ANTIG EN/AN TIBOD Y, REFLE X CONFI RMATI ON HIV antigen/anti body Nonrea ctive nonrea ctive HIV-1 antig en and HIV-1 /HIV- 2 antib odies were not detec jluis. No labor atory evide nce of HIV infec tion. Not Available [facility] (Lab) [address] [facility] [address], [place], [address], 04/23/2025 15:25:45 04/20/20 25 04/20/2025 RPR SCREE [...] ion (TP-P A) testi ng. Not Available [facility] (Lab) [address], [place], [address], 04/23/2025 15:25:46 04/20/20 25 04/20/2025 RPR SCREE N, REFLE X TITER /CONF IRMAT ION RPR titer 1:8 . none high Not Available [facility] (Lab) [address], [place], [address], 04/23/2025 15:25:46 04/20/20 25 04/20/2025 SYPHI LIS [...] of the syphi lis rever [facility], see: https ://ganesh sena [employer] / it-mm files /Syph ilis_ Serol ogy_A lgori thm.p df ----- ----- ----- ----A DDITI ONAL INFOR MATNOHEMY N---- ----- ----- ----- This test is inten ded to be used as a confi rmato ry test on sampl es that have been teste d by [facility] syphi lis test. Test Perfo rmed by: [facility] - [place] [address] [place] [address] Lab Direc tor: Jay Manzano nn Ph.D. ; CLIA# [id number] Not Available [facility] (Lab) [address], [place], [address], 04/23/2025 15:25:46 05/27/2005/27/2025 PROTE IN/CR EATIN INE RATIO , URINE creatinine, urine 123.0 mg/dL R-No refer ence range estab lishe d for this assay Not Available [facility] (Lab) [address] [facility] [facility], [place], [address], 05/28/2025 10:30:45 05/27/20 25 05/27/2025 PROTE IN/CR EATIN INE RATIO , URINE protein, urine 22 mg/dL R-No refer ence range estab lishe d for this assay Not Available [facility] (Lab) [address] [facility] [facility] [address], [place], [address], 05/28/2025 10:30:45 05/27/20 25 05/27/2025 PROTE IN/CR [...] fican t prote inuri a. Not Available [facility] (Lab) [address], [place], [address], 05/28/2025 10:30:45 06/06/20 25 06/06/2025 CT/GC AND TRICH OMONA S VAGIN SILVA (RRNA ), URINE chlamydia trachomatis, PCR Negati ve negati ve Not Available [facility] (Lab) [address] [facility] [facility] [address], [place], [address], 06/09/2025 16:13:50 06/06/20 25 06/06/2025 CT/GC AND TRICH OMONA S VAGIN SILVA (RRNA ), URINE neisseria gonorrhoeae, PCR Negati ve negati ve Not Available [facility] (Lab) [address] [facility] [facility], [place], [address], 06/09/2025 16:13:50 06/06/20 25 06/06/2025 CT/GC AND TRICH OMONA S VAGIN SILVA (RRNA ), URINE trichomonas vaginalis ribosomal RNA (rrna) Negati ve negati ve Not Available [facility] (Lab) [address] [facility] [address], [place], [address], 06/09/2025 16:13:50 06/06/20 25 06/06/2025 CULTU RE: [...] Resul ting Lab: [facility] [address] [facility] [address] Tel: CULTU RE ----- ----- ----- --- No Group B strep isola jluis at 2 days (shelia ctive broth enhan cemen t) Not Available [facility] (Lab) [address] [facility] [facility] [address], [place], [address], 06/09/2025 16:13:50 03/17/20 25 03/17/2025 US, obste tric, 2nd or 3rd trime ster No observ ation record ed. [email or web address] [address], [place], [address], 03/17/2025 15:45:06 03/17/20 25 03/17/2025 US, obste tric, 2nd or 3rd trime ster No observ ation record ed. [email or web address] [place] [address], [place], [address], 03/17/2025 12:51:02 03/17/20 25 03/17/2025 US, obste tric, 2nd or 3rd trime ster No observ ation record ed. [email or web address] [address], [place], [address], 04/07/2025 21:57:11 03/17/20 25 03/17/2025 US, obste tric, 2nd or 3rd trime ster No observ ation record ed. [email or web address] [address], [place], [address], 03/17/2025 23:04:51 03/17/20 25 03/17/2025 US, obste tric, 2nd or 3rd trime ster No observ ation record ed. [email or web address] [address], [place], [address], 03/17/2025 15:45:46 03/17/20 25 03/17/2025 US, obste tric, 2nd or 3rd trime ster No observ ation record ed. [email or web address] [address], [place], [address], 03/18/2025 17:16:02 05/18/2005/18/2025 , obste tric, follo w-up No observ ation record ed. [facility] [address], [place], [address], 05/18/2025 18:23:17 05/18/2005/18/2025 US, obste tric, follo w-up No observ ation record ed. [email or web address] [address], [place], [address], 05/20/2025 13:20:22 05/25/2005/25/2025 , obste tric, bioph ysica l profi le + non-s tress test No observ ation record ed. [facility] [address], [place], [address], 05/25/2025 17:34:34 05/25/20 25 05/25/2025 US, obste tric, follo w-up No observ ation record ed. [email or web address] [address], [place], [address], 05/26/2025 14:44:53 05/25/2005/25/2025 non-s tress test No observ ation record ed. [email or web address] [place] [address], [place], [address], 05/25/2025 18:39:52 05/25/20 non-s tress test No observ ation record ed. [email or web address] [place] [address], [place], [address], 05/25/2025 17:32:07 05/30/2005/30/2025 US, obste tric, bioph ysica l profi le + non-s tress test No observ ation record ed. [email or web address] [place] [address], [place], [address], 05/30/2025 12:42:17 05/30/2005/30/2025 US, obste tric, bioph ysica l profi le + non-s tress test No observ ation record ed. [email or web address] [address] [place] [address] [address], [place], [address], 05/30/2025 17:35:43 05/30/2005/30/2025 non-s tress test No observ ation record ed. [email or web address] [place] [address], [place], [address], 05/30/2025 13:00:42 05/30/20 non-s tress test No observ ation record ed. [email or web address] [place] [address], [place], [address], 05/30/2025 13:02:59 06/06/2006/06/2025 US, obste tric, bioph ysica l profi le + non-s tress test No observ ation record ed. [email or web address] [place] [address], [place], [address], 06/06/2025 14:28:11 06/06/2006/06/2025 US, lucretia tric, bioph ysica l profi le + non-s tress test No observ ation record ed. [email or web address] [address], [place], [address], 06/06/2025 15:10:23 06/07/2006/07/2025 non-s tress test No observ ation record ed. [email or web address] [place] [address], [place], [address], 2025 20:27:42 06/07/20 non-s tress test No observ ation record ed. [email or web address] Not Available 2024 15:33:58 06/13/2006/13/2025 US, obste tric, follo w-up No observ ation record ed. [email or web address] [address], [place], [address], 06/14/2025 10:34:08 06/13/2006/13/2025 non-s tress test No observ ation record ed. [email or web address] [place] [address], [place], [address], 06/19/2025 18:04:34 06/13/20 non-s tress test No observ ation record ed. [email or web address] [place] [address], [place], [address], 06/13/2025 18:04:44 06/13/2006/14/2025 US, obste tric, follo w-up No observ ation record ed. [email or web address] [place] [address], [place], [address], 06/14/2025 13:38:03 06/13/20 25 06/14/2025 US, obste tric, bioph ysica l profi le + non-s tress test No observ ation record ed. [email or web address] [place] [address], [place], [address], 06/14/2025 13:38:17 06/15/20 25 2025 non-s tress test No observ ation record ed. [facility] [address], [place], [address], 06/17/2025 09:42:27 06/20/2006/20/2025 US, obste tric, bioph ysica l profi le + non-s tress test No observ ation record ed. [email or web address] [place] [address], [place], [address], 06/20/2025 13:28:54 06/20/20 25 06/20/2025 US, obste tric, follo w-up No observ ation record ed. [email or web address] [address], [place], [address], 06/20/2025 16:32:26 06/20/20 25 06/20/2025 non-s tress test No observ ation record ed. [email or web address] [place] [address], [place], [address], 06/20/2025 18:00:22 06/20/20 non-s tress test No observ ation record ed. [email or web address] [place] [address], [place], [address], 06/20/2025 17:57:42 06/27/20 25 06/27/2025 US, obste tric, bioph ysica l profi le No observ ation record ed. [email or web address] [address] [place] [address] [address], [place], [address], 06/28/2025 11:16:29 06/27/2006/27/2025 US, obste tric, bioph ysica l profi le + non-s tress test No observ ation record ed. [facility] [address], [place], [address], 06/27/2025 18:49:37 06/27/2006/27/2025 non-s tress test No observ ation record ed. [facility] [address], [place], [address], 06/27/2025 18:50:27 06/27/20 non-s tress test No observ ation record ed. [email or web address] [place] [address] [address], [place], [address], 06/27/2025 12:29:10 Result Notes None recorded. Problems Name Problem SNOMED Code Status Onset Date Resolution Date Notes Provider Name and Address Organization Details Recorded Time Anemia 330194666 Completed Trino serrano, [facility] 4 13:00:34 Pre-ecla mpsia 929307564 Completed 37w Delivery , 2x/wk antenata l testing Trino [facility] 4 13:00:34 Group B Streptoc occus carrier 2262552321 103 Completed AMP in labor rTino serrano [facility] 4 13:00:33 Pregnanc y 85415794 Completed 202210/27/2023 Jazz serrano, [facility] 5 12:31:25 Syphilis 77611375 Completed 2022 no s/s, +fta abs- tx schedule d 06/05,, 2 Trino [facility], [facility] 4 13:00:34 Infectio n by Analia hidalgo [id number] Completed 2022 2/2 positive - tinidazo le tx 2/5 - RONEN in 4wks Trino [facility] 4 13:00:34 Gonorrhe a 45250184 Completed 2022 PA sent 08/20 for Ceftriax one - RONEN NEGATIVE Trino [facility] 4 13:00:34 Pregnanc y 55436287 Active 2024 [facility], [facility] 5 12:31:25 Past pregnanc y history of pre-ecla mpsia 3799326044 50258 Active 2024 recommen ded ASA previous delivery PTL 36w6d 10/08/23 EDC 10/30/23 antenata l testing Juana Warner [facility] 5 11:26:48 History of syphilis 6093296676 072205 Active 2024 treated in previous pregnanc y titers 05/2023 1:32 decrease d to 1:8 03/17 [facility] 11:51:07 History of chlamydi al infectio n 958731147 Active 2024 Isidro Le MD [address], [place], [address], [facility] 5 12:53:43 Iron deficien cy anemia 88967222 Active 2024 hgg decrease d 03-17 to 9-3 Iron infusion order faxed 05/04 _ pending insuranc e) Juana Timmy serrano, [facility] 5 11:03:51 Finding of arrangem ent of fetus 60538977 Active 2024 Transver se Isidro Le MD [address], [place], [address], [facility] 17:33:30 Problem Notes None recorded. Medical [...] and Address Organization Details Last Updated DateTime 06/13/2025 39127.301 28 g 68645.301 28 g 98/65 mm[Hg] 98/65 mm[Hg] Jazz Somers [facility] 06/13/2025 18:02:09 Social History Question Answer Notes LastModified by Organizat ion Details LastModified Time Tobacco Smoking Status Never Smoker Jacqueline Eunice serrano, [facility] 03/07/2023 14:21:17 Are You Blind Or Do You Have Difficulty Seeing? No Information n ot available 10/01/2023 What Is Your Level Of Caffeine Consumption? Occasional [email or web address] Information not available 10/01/2023 How Much Tobacco Do You Chew? None [email or web address] Information not available 10/01/2023 In The 14 Days Before Symptom Onset, Have You Had Close Contact With A Laboratory-confirm ed COVID-19 While That Case Was Ill? No [email or web address] Information n ot available 10/01/2023 In The 14 Days Before Symptom Onset, Have You Had Close Contact With A Person Who Is Under Investigation For COVID-19 While That Person Was Ill? No [email or web address] Information not available 10/01/2023 Have You Been To An Area Known To Be High Risk For COVID-19? No [email or web address] Information not available 10/01/2023 Are You Deaf Or Do You Have Serious Difficulty Hearing? No [email or web address] Information not available 10/01/2023 What Type Of Diet Are You Following? REGULAR [email or web address] Information n ot available 10/01/2023 What Is The Highest Grade Or Level Of School You Have Completed Or The Highest Degree You Have Received? [id number] [email or web address] Information not available 10/01/2023 Are There Any Guns Present In Your Home? No [email or web address] Information not available 10/01/2023 Do You Use Protection During Sex? Usually [email or web address] Information not available 10/01/2023 Do You Use Your Seat Belt Or Car Seat Routinely? Yes [email or web address] Information not available 10/01/2023 Do You Have Smoke And Carbon Monoxide Detectors In Your Home? No Information not available 10/01/2023 How Much Tobacco Do You Smoke? No [email or web address] Information not available 10/01/2023 Do You Use Sunscreen Routinely? No [email or web address] Information not available 10/01/2023 Have You Used IV Drugs? No Information not available 10/01/2023 Do You Have Difficulty Walking Or Climbing Stairs? No [email or web address] Information not available 10/01/2023 Sex: Unknown Functional Status Question Answer Note LastModified by Organizat ion Details LastModified Time Do you use any illicit or recreational drugs? No [email or web address] Information not available 10/01/2023 What is your level of alcohol consumption? None [email or web address] Information not available 10/01/2023 Are you able to walk independently without assistance or assistive devices? YESWOREST [email or web address] Information not available 10/01/2023 Are you able to care for yourself independently? Yes [email or web address] Information not available 10/01/2023 Do you have difficulty dressing, bathing, grooming, or toileting? No [email or web address] Information not available 10/01/2023 What is your exercise level? Moderate [email or web address] Information not available 10/01/2023 Mental Status Question Answer Note LastModified by Organization [employer] LastModified Time Do you feel stressed (tense, restless, nervous, or anxious, or unable to sleep at night)? [id number] [email or web address] Information not available 10/01/2023 Family History Relationship [...] ICD10 Code Diagnosis IMO Codes Diagnosis Note [id number] MD Clay Aragon [address],[facility] [place] [address] 05/18/2025 15:16:07 05/18/2025 15:56:40 care: obstetric risk [id number] O09.293 Z3A.32 [id number] MD Clay Aragon [address],[facility] [place] [address] 05/18/2025 15:17:46 05/18/2025 16:51:15 care status [id number] Z34.83 [id number] MD Clay Aragon [address],[place] [address] 05/25/2025 15:01:48 05/25/2025 15:34:08 care: obstetric risk 456659205 O09.293 O09.299 Z3A.33 [id number] MD Clay Aragon [address],[place] [address] 05/25/2025 15:07:02 05/25/2025 17:32:49 Past history of pre-eclampsia [id number] 68163 Z87.59 [id number] Isidro Le MD [place] [address],[place] [address] 05/25/2025 15:07:21 05/25/2025 17:10:12 care status [id number] Z34.83 [id number] [facility] [address],[place] [address] 05/27/2025 09:25:56 05/27/2025 09:44:43 Backache 732178112 M54.9 [id number] Acute headache 411806810 R51.9 [id number] call this afternoon if no relief will try imitrex [id number] MD Clay Aragon [address],[place] [address] 05/30/2025 11:35:55 05/30/2025 12:10:04 care: obstetric risk 606339875 O09.293 Z3A.34 5672604 [id number] Isidro Le MD [place] [address],[place] [address] 05/30/2025 11:36:32 05/30/2025 13:02:53 Pre-eclampsia 634604459 O14.90 [id number] MD Clay Aragon [address],[place] [address] 05/30/2025 11:36:55 05/30/2025 13:17:39 care status 147874431 Z34.83 [id number] Isidro Le MD [place] [address],[place] [address] 06/06/2025 13:30:49 06/06/2025 14:28:09 care: obstetric risk 425123662 O09.293 Z3A.35 [id number] [id number] MD Clay Aragon [address],[place] [address] 06/06/2025 13:31:14 2025 10:42:54 Past history of pre-eclampsia 4545232322 13561 Z87.59 [id number] MD Clay Aragon [address],[place] [address] 06/06/2025 13:31:30 06/06/2025 15:34:03 care status 182230588 Z34.83 [id number] MD Clay Aragon [address],[place] [address] 06/13/2025 15:39:53 06/14/2025 09:09:52 care: obstetric risk 175655745 O09.293 Z3A.36 [id number] BLACK YUN MD [place] [address],[place] [address] 06/13/2025 15:40:02 06/14/2025 09:09:28 Past history of pre-eclampsia 8018746478 88892 Z87.59 [id number] MD Clay Aragon [address],[place] [address] 06/13/2025 15:40:14 06/13/2025 17:38:16 care status 285862822 Z34.83 [id number] Health Concerns Section Related Observation LastModified by Organization Detai ls LastModified Time None Recorded Concern Status LastModified by Organization Details LastModified Time None Recorded Payers Encounter Date Sequence Insurance Name Policy Number Policy Vital Covered Member ID Vital Member ID Guarantor Name 06/13/2025 1 [place] [facility] [place] [facility] A[facility] Gisela Bates [id number] Gisela Maxime Bates Notes Date Note Type Note Provider Name and Address Organization Details Recorded Time 06/13/2025 text/html Generic HPI TemplateReported by Patient Isidro Le MD [address], [place], [address], [place] [facility] 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 RPT labs @ 28wks , fax all labs to health dept [phone] . 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,[employer] REPA[employer]ER 03/31 pt denies sx's JGBilateral double renal artery Problem Name Start Date End Date Resolution Snomed Code Not e History of syphilis 03/17/2025 [id number] treated in previous pregnancytiters 05/2023 1:32 decreased to 1:8 03/17 Iron deficiency anemia 05/04/2025 [id number] hgg decreased - to 9-3 Iron infusion order faxed 05/04 _ pending insurance) History of chlamydial infection 03/17/2025 [id number] Past history of pre-eclampsia 03/17/2025 [id number] recommended ASAprevious delivery PTL 36w6d 10/08/23 EDC 10/30/23 testing Finding of arrangement of fetus 06/13/2025 [id number] Transverse Jerome Calculation Initial Jerome Date Initial [...] Weight in lbs Pre/Post Dialysis Refused Weight 131.911092115873 BP Diastolic BP Location Tested BP Systolic [...] Weight in lbs Pre/Post Dialysis Refused Weight 131.541621302688 BP Diastolic BP Location Tested BP Systolic [...] Type Weight in lbs Pre/Post Dialysis Refused 133.869285324600 BP Diastolic BP Location Tested BP Systolic [...] Type Weight in lbs Pre/Post Dialysis Refused 135.74333723666 BP Diastolic BP Location Tested BP Systolic [...] Type Weight in lbs Pre/Post Dialysis Refused 135.63245997202 BP Diastolic BP Location Tested BP Systolic [...] Weight in lbs Pre/Post Dialysis Refused Weight 139.67136065047 BP Diastolic BP Location Tested BP Systolic BP Type 76 L arm 112 sitting Fetus Heart Rate Present Fetus Movement A Yes Comments Flowsheet Date 05/25/2025 Solorzano Score Blood Edema Fundus Height Fundus Units Glucose Ketones Leukocytes Nitrite Labor Signs Protein Cervic Dilation Cervic Effacement Cervic Station Type Weight in lbs Pre/Post Dialysis Refused Weight 149.42691275027 BP Diastolic BP Location Tested BP Systolic [...] Weight in lbs Pre/Post Dialysis Refused Weight 138.394667119996 BP Diastolic BP Location Tested BP Systolic BP Type 78 L arm 120 sitting Fetus Heart Rate Present A 139 Fetus Movement A Yes Comments was at [facility] yesterday wi th riuz and back pain sent home with ruiz, [...] Type Weight in lbs Pre/Post Dialysis Refused 139.633395585863 BP Diastolic BP Location Tested BP Systolic BP Type 74 L arm 119 sitting Fetus Heart Rate Present Fetus Movement A Yes Comments Flowsheet Date 05/30/2025 Solorzano Score Blood Edema Fundus Height Fundus Units Glucose Ketones Leukocytes Nitrite Labor Signs Protein Cervic Dilation Cervic Effacement Cervic Station Type Weight in lbs Pre/Post Dialysis Refused 139.883671749568 BP Diastolic BP Location Tested BP Systolic [...] Type Weight in lbs Pre/Post Dialysis Refused 142.368228034616 BP Diastolic BP Location Tested BP Systolic [...] Type Weight in lbs Pre/Post Dialysis Refused 144.205873980992 BP Diastolic BP Location Tested BP Systolic BP Type 65 L arm 98 sitting Fetus Heart Rate Present Fetus Movement A Yes Comments Flowsheet Date 06/13/2025 Solorzano Score Blood Edema Fundus Height Fundus Units Glucose Ketones Leukocytes Nitrite Labor Signs Protein Cervic Dilation Cervic Effacement Cervic Station Type Weight in lbs Pre/Post Dialysis Refused 144.781089839513 BP Diastolic BP Location Tested BP Systolic [...] Weight in lbs Pre/Post Dialysis Refused Weight 144.26602107393 BP Diastolic BP Location Tested BP Systolic BP Type 64 L arm 104 sitting Fetus Heart Rate Present Fetus Movement A Yes Comments Flowsheet Date 06/20/2025 Solorzano Score Blood Edema Fundus Height Fundus Units Glucose Ketones Leukocytes Nitrite Labor Signs Protein Cervic Dilation Cervic Effacement Cervic Station Type Weight in lbs Pre/Post Dialysis Refused 144.451857417252 BP Diastolic BP Location Tested BP Systolic [...] Type Weight in lbs Pre/Post Dialysis Refused 147.606587758191 BP Diastolic BP Location Tested BP Systolic BP Type 70 L arm 104 sitting Fetus Heart Rate Present Fetus Movement A Yes Comments Flowsheet Date 06/27/2025 Solorzano Score Blood Edema Fundus Height Fundus Units Glucose Ketones Leukocytes Nitrite Labor Signs Protein Cervic Dilation Cervic Effacement Cervic Station Type Weight in lbs Pre/Post Dialysis Refused 147.072982524643 BP Diastolic BP Location Tested BP Systolic [...]
--- OUTSIDE RECORDS SUMMARY | 2025-07-01 06:19 | XMS_ITS | Continuity of Care Document ---
Author Organization [facility], [facility] Address [address] [place] [address] Assessment Encounter Date Assessment Date Assessment LastModified by Organization Details LastModified Time 06/20/2025 06/20/2025 Patient is ___weeks . Discussed plan. [email or web address] Not available 06/20/2025 11:59:24 Plan of Treatment Reminders Order Date Submit [...] Resul penelopeg Lab: [facility] [address] [facility] [address] Tel: CULTU RE ----- ----- ----- --- No growt h in 1 day (dete ction level of 10,00 0 colon ies / ml.) Not Available [facility] (Lab) [address] [facility], [place], [address], 03/19/2025 07:23:20 03/17/20 25 03/17/2025 CBC W/DIF F WBC 5.0 10'3/ uL 3.5-10 .5 Not Available [facility] (Lab) [address] [facility] [address], [place], [address], 03/21/2025 14:27:06 03/17/20 25 03/17/2025 CBC W/DIF F RBC 3.57 10'6/ uL (based on docume nted legal sex) 3.80-5 .20 low Not Available [facility] (Lab) [address] [facility] [address], [place], [address], 03/21/2025 14:27:06 03/17/20 25 03/17/2025 CBC W/DIF F HGB 10.5 g/dL (based on docume nted legal sex) 11.6-1 5.4 low Not Available [facility] (Lab) [address] [facility] [address], [place], [address], 03/21/2025 14:27:06 03/17/20 25 03/17/2025 CBC W/DIF F HCT 30.2 % (based on docume nted legal sex) 34.0-4 5.0 low Not Available [facility] (Lab) [address] [facility] [address], [place], [address], 03/21/2025 14:27:06 03/17/20 25 03/17/2025 CBC W/DIF F MCV 84.6 fL 80.0-9 9.0 Not Available [facility] (Lab) [address] [facility] [address], [place], [address], 03/21/2025 14:27:06 03/17/20 25 03/17/2025 CBC W/DIF F MCH 29.4 pg 27.0-3 4.0 Not Available [facility] (Lab) [address] [facility] [address], [place], [address], 03/21/2025 14:27:06 03/17/20 25 03/17/2025 CBC W/DIF F MCHC 34.8 g/dL 32.0-3 5.5 Not Available [facility] (Lab) [address] [facility] [address], [place], [address], 03/21/2025 14:27:06 03/17/20 25 03/17/2025 CBC W/DIF F RDW 13.3 % 11.0-1 5.0 Not Available [facility] (Lab) [address] [facility] [address], [place], [address], 03/21/2025 14:27:06 03/17/20 25 03/17/2025 CBC W/DIF F plt 235 10'3/ uL 150-40 0 Not Available [facility] (Lab) [address] [facility] [address], [place], [address], 03/21/2025 14:27:06 03/17/20 25 03/17/2025 CBC W/DIF F MPV 10.4 fL 8.8-12 .1 Not Available [facility] (Lab) [address] [facility] [address], [place], [address], 03/21/2025 14:27:06 03/17/20 25 03/17/2025 CBC W/DIF F NRBC's 0.0 % 0.0 Not Available [facility] (Lab) [address] [facility] [address], [place], [address], 03/21/2025 14:27:06 03/17/20 25 03/17/2025 CBC W/DIF F absolute NRBCs 0.0 10'3/ uL no refere nce range establ ished Not Available [facility] (Lab) [address] [facility] [address], [place], [address], 03/21/2025 14:27:06 03/17/20 25 03/17/2025 CBC W/DIF F neutrophils 72.4 % 34.0-7 3.0 Not Available [facility] (Lab) [address] [facility] [address], [place], [address], 03/21/2025 14:27:06 03/17/20 25 03/17/2025 CBC W/DIF F lymphocytes 14.4 % 15.0-5 0.0 low Not Available [facility] (Lab) [address] [facility] [address], [place], [address], 03/21/2025 14:27:06 03/17/20 25 03/17/2025 CBC W/DIF F monocytes 6.6 % 1.0-15 .0 Not Available [facility] (Lab) [address] [facility] [address], [place], [address], 03/21/2025 14:27:06 03/17/20 25 03/17/2025 CBC W/DIF F eosinophils 5.2 % 0.0-8. 0 Not Available [facility] (Lab) [address] [facility] [address] [address], [place], [address], 03/21/2025 14:27:06 03/17/20 25 03/17/2025 CBC W/DIF F basophils 0.4 % 0.0-2. 0 Not Available [facility] (Lab) [address] [facility] [address], [place], [address], 03/21/2025 14:27:06 03/17/2003/17/2025 CBC W/DIF F immature granulocytes 1.0 % no define d refere nce range Immat ure Granu locyt es (IG) repre sents autom ated enume ratio n of Metam yeloc ytes, Myelo cytes and Promy elocy freda when IG is < 5%. Blast s are not inclu ded in IG and repor jluis separ ately if prese nt. Not Available [facility] (Lab) [address] [facility] [address], [place], [address], 03/21/2025 14:27:06 03/17/20 25 03/17/2025 CBC W/DIF F absolute neutrophils 3.6 10'3/ uL 1.5-8. 0 Not Available [facility] (Lab) [address] [facility] [address], [place], [address], 03/21/2025 14:27:06 03/17/20 25 03/17/2025 CBC W/DIF F absolute lymphocytes 0.7 10'3/ uL 1.0-4. 0 low Not Available [facility] (Lab) [address] [facility], [place], [address], 03/21/2025 14:27:06 03/17/20 25 03/17/2025 CBC W/DIF F absolute monocytes 0.3 10'3/ uL 0.2-1. 0 Not Available [facility] (Lab) [address] [facility] [address] [address], [place], [address], 03/21/2025 14:27:06 03/17/20 25 03/17/2025 CBC W/DIF F absolute eosinophils 0.3 10'3/ uL 0.0-0. 6 Not Available [facility] (Lab) [address] [facility] [address] [address], [place], [address], 03/21/2025 14:27:06 03/17/20 25 03/17/2025 CBC W/DIF F absolute basophils 0.0 10'3/ uL 0.0-0. 3 Not Available [facility] (Lab) [address] [facility] [address], [place], [address], 03/21/2025 14:27:06 03/17/20 25 03/17/2025 CBC W/DIF [...] book. nm.or g/gen derx Not Available [facility] (Lab) [address], [place], [address], 03/21/2025 14:27:06 03/17/2003/17/2025 HIV 1/2 ANTIG EN/AN TIBOD Y, REFLE X CONFI RMATI ON HIV antigen/anti body Nonrea ctive nonrea ctive HIV-1 antig en and HIV-1 /HIV- 2 antib odies were not detec jluis. No labor atory evide nce of HIV infec tion. Not Available [facility] (Lab) [address], [place], [address], 03/21/2025 14:27:06 03/17/2003/17/2025 HEPAT ITIS B SURFA CE ANTIG EN hepatitis B surface antigen Non-re active non-re active This assay was perfo rmed using [facility] [employer] [facility] [employer] ratio n reage nts and test kits. Value s obtai gayla with other assay metho ds or kits canno t be used inter lee eably . Not Available [facility] (Lab) [address], [place], [address], 03/21/2025 14:27:07 03/17/20 25 03/17/2025 HEPAT ITIS C ANTIB ELOISE SCREE N, REFLE X TO CONFI RMATI ON hepatitis C antibody Non-re active non-re active Antib odies to HCV Not Detec jluis, does not exclu de the possi bilit y of expos ure to HCV. Not Available [facility] (Lab) [address], [place], [address], 03/21/2025 14:27:07 03/17/20 25 03/17/2025 RUBEL LA IGG ANTIB ELOISE, QUANT rubella antibodies, IgG Reacti ve reacti ve Not Available [facility] (Lab) [address], [place], [address], 03/21/2025 14:27:08 03/17/20 25 03/17/2025 RUBEL LA IGG ANTIB ELOISE, QUANT rubella antibodies, IgG quant 14.2 IU/mL >=10 Non-r eacti ve (Non- Immun e) <10 IU/mL React reyna (Immu ne) > or = 10 IU/mL Not Available [facility] (Lab) [address] [facility] [address], [place], [address], 03/21/2025 14:27:08 03/17/20 25 03/17/2025 TYPE/ RH/SC REEN ABO/Rh type B POS Not Available [facility] (Lab) [address], [place], [address], 03/21/2025 14:27:08 03/17/20 25 03/17/2025 TYPE/ RH/SC REEN antibody screen NEG Not Available [facility] (Lab) [address] [facility] [address], [place], [address], 03/21/2025 14:27:08 03/17/20 25 03/17/2025 TYPE/ RH/SC REEN exp date 2024 23:59 Not Available [facility] (Lab) [address] [facility] [address], [place], [address], 03/21/2025 14:27:08 03/17/20 25 03/17/2025 HEMOG LOBIN [...] Actio n sugge sted Not Available [facility] (Lab) [address] [facility] [address], [place], [address], 03/21/2025 14:27:09 03/17/20 25 03/17/2025 RPR SCREE [...] (TP-P A) testi ng. Not Available [facility] (Lab) [address] [facility] [address], [place], [address], 03/21/2025 14:27:09 03/17/20 25 03/17/2025 RPR SCREE N, REFLE X TITER /CONF IRMAT ION RPR titer 1:8 . none high Not Available [facility] (Lab) [address] [facility] [address], [place], [address], 03/21/2025 14:27:09 03/17/20 25 03/17/2025 SYPHI LIS [...] and resul ts, see: https ://ganesh sena [employer] / it-mm files /Syph ilis_ Serol ogy_A lgori thm.p df ----- ----- ----- ----A DDITI ONAL INFOR SHAJI N---- ----- ----- ----- This test is inten ded to be used as a confi rmato ry test on sampl es that have been teste d by [facility] syphi lis test. Test Perfo rmed by: [facility] [place] [address], [place] [address] Lab Direc tor: Jay Manzano nn Ph.D. ; CLIA# [id number] Not Available [facility] (Lab) [address] [facility] [address], [place], [address], 03/21/2025 14:27:10 03/29/2003/29/2025 CT/GC AND TRICH OMONA S VAGIN SILVA (RRNA ), URINE chlamydia trachomatis, PCR Negati ve negati ve Not Available [facility] (Lab) [address] [facility] [address], [place], [address], 03/30/2025 14:21:33 03/29/20 25 03/29/2025 CT/GC AND TRICH OMONA S VAGIN SILVA (RRNA ), URINE neisseria gonorrhoeae, PCR Negati ve negati ve Not Available [facility] (Lab) [address] [facility] [address], [place], [address], 03/30/2025 14:21:33 03/29/20 25 03/29/2025 CT/GC AND TRICH OMONA S VAGIN SILVA (RRNA ), URINE trichomonas vaginalis ribosomal RNA (rrna) Negati ve negati ve Not Available [facility] (Lab) [address] [facility] [address], [place], [address], 03/30/2025 14:21:33 04/20/20 25 04/20/2025 HEMAT OCRIT (HCT) HCT 29.1 % (based on docume nted legal sex) 34.0-4 5.0 low Not Available [facility] (Lab) [address] [facility] [address], [place], [address], 04/23/2025 15:25:44 04/20/20 25 04/20/2025 HEMOG LOBIN (HGB) HGB 9.3 g/dL (based on docume nted legal sex) 11.6-1 5.4 low Not Available [facility] (Lab) [address] [facility] [address], [place], [address], 04/23/2025 15:25:45 04/20/2004/20/2025 HIV 1/2 ANTIG EN/AN TIBOD Y, REFLE X CONFI RMATI ON HIV antigen/anti body Nonrea ctive nonrea ctive HIV-1 antig en and HIV-1 /HIV- 2 antib odies were not detec jluis. No labor atory evide nce of HIV infec tion. Not Available [facility] (Lab) [address] [facility] [address], [place], [address], 04/23/2025 15:25:45 04/20/20 25 04/20/2025 RPR SCREE [...] (TP-P A) testi ng. Not Available [facility] (Lab) [address] [facility] [address], [place], [address], 04/23/2025 15:25:46 04/20/20 25 04/20/2025 RPR SCREE N, REFLE X TITER /CONF IRMAT ION RPR titer 1:8 . none high Not Available [facility] (Lab) [address] [facility] [place], [address], 04/23/2025 15:25:46 04/20/20 25 04/20/2025 SYPHI LIS [...] and resul ts, see: https ://ganesh sena [employer] / it-mm files /Syph ilis_ Serol ogy_A lgori thm.p df ----- ----- ----- ----A DDITI ONAL INFOR MATNOHEMY N---- ----- ----- ----- This test is inten ded to be used as a confi rmato ry test on sampl es that have been teste d by [facility] syphi lis test. Test Perfo rmed by: [facility] [place] [address] [place] [address] Lab Direc tor: Jay Manzano nn Ph.D. ; CLIA# [id number] Not Available [facility] (Lab) [address] [facility] [address], [place], [address], 04/23/2025 15:25:46 05/27/20 25 05/27/2025 PROTE IN/CR EATIN INE RATIO , URINE creatinine, urine 123.0 mg/dL R-No refer ence range estab lishe d for this assay Not Available [facility] (Lab) [address], [place], [address], 05/28/2025 10:30:45 05/27/20 25 05/27/2025 PROTE IN/CR EATIN INE RATIO , URINE protein, urine 22 mg/dL R-No refer ence range estab lishe d for this assay Not Available [facility] (Lab) [address] [facility] [address], [place], [address], 05/28/2025 10:30:45 05/27/20 25 05/27/2025 PROTE IN/CR [...] fican t prote inuri a. Not Available [facility] (Lab) [address] [facility] [address], [place], [address], 05/28/2025 10:30:45 06/06/20 25 06/06/2025 CT/GC AND TRICH OMONA S VAGIN SILVA (RRNA ), URINE chlamydia trachomatis, PCR Negati ve negati ve Not Available [facility] (Lab) [address] [facility] [address], [place], [address], 06/09/2025 16:13:50 06/06/20 25 06/06/2025 CT/GC AND TRICH OMONA S VAGIN SILVA (RRNA ), URINE neisseria gonorrhoeae, PCR Negati ve negati ve Not Available [facility] (Lab) [address] [facility] [address], [place], [address], 06/09/2025 16:13:50 06/06/20 25 06/06/2025 CT/GC AND TRICH OMONA S VAGIN SILVA (RRNA ), URINE trichomonas vaginalis ribosomal RNA (rrna) Negati ve negati ve Not Available [facility] (Lab) [address] [facility] [address], [place], [address], 06/09/2025 16:13:50 06/06/20 25 06/06/2025 CULTU RE: [...] t Abnor mal: No Resul ting Lab: [facility] [address] [facility] [address] Tel: CULTU RE ----- ----- ----- --- No Group B strep isola jluis at 2 days (shelia ctive broth enhan cemen t) Not Available [facility] (Lab) [address], [place], [address], 06/09/2025 16:13:50 03/17/20 25 03/17/2025 US, obste tric, 2nd or 3rd trime ster No observ ation record ed. [email or web address] [facility] [address], [place], [address], 03/17/2025 15:45:06 03/17/20 25 03/17/2025 US, obste tric, 2nd or 3rd trime ster No observ ation record ed. [email or web address] [facility] [address], [place], [address], 03/17/2025 12:51:02 03/17/20 25 03/17/2025 US, obste tric, 2nd or 3rd trime ster No observ ation record ed. [email or web address] [facility] [address], [place], [address], 04/07/2025 21:57:11 03/17/20 25 03/17/2025 US, obste tric, 2nd or 3rd trime ster No observ ation record ed. [facility] [address], [place], [address], 03/17/2025 23:04:51 03/17/20 25 03/17/2025 US, obste tric, 2nd or 3rd trime ster No observ ation record ed. [email or web address] [facility] [address], [place], [address], 03/17/2025 15:45:46 03/17/20 25 03/17/2025 US, obste tric, 2nd or 3rd trime ster No observ ation record ed. [facility] [address], [place], [address], 03/18/2025 17:16:02 05/18/2005/18/2025 US, obste tric, follo w-up No observ ation record ed. [facility] [address], [place], [address], 05/18/2025 18:23:17 05/18/2005/18/2025 US, obste tric, follo w-up No observ ation record ed. [email or web address] [facility] [address], [place], [address], 05/20/2025 13:20:22 05/25/2005/25/2025 , obste tric, bioph ysica l profi le + non-s tress test No observ ation record ed. [facility] [address], [place], [address], 05/25/2025 17:34:34 05/25/20 25 05/25/2025 US, obste tric, follo w-up No observ ation record ed. [email or web address] [facility] [address], [place], [address], 05/26/2025 14:44:53 05/25/2005/25/2025 non-s tress test No observ ation record ed. [email or web address] [facility] [address], [place], [address], 05/25/2025 18:39:52 05/25/20 non-s tress test No observ ation record ed. [email or web address] [facility] [address], [place], [address], 05/25/2025 17:32:07 05/30/2005/30/2025 US, obste tric, bioph ysica l profi le + non-s tress test No observ ation record ed. [email or web address] [facility] [address], [place], [address], 05/30/2025 12:42:17 05/30/2005/30/2025 US, obste tric, bioph ysica l profi le + non-s tress test No observ ation record ed. [email or web address] [facility] [address], [place], [address], 05/30/2025 17:35:43 05/30/2005/30/2025 non-s tress test No observ ation record ed. [email or web address] [facility] [address], [place], [address], 05/30/2025 13:00:42 05/30/20 non-s tress test No observ ation record ed. [email or web address] [facility] [address], [place], [address], 05/30/2025 13:02:59 06/06/2006/06/2025 US, obste tric, bioph ysica l profi le + non-s tress test No observ ation record ed. [email or web address] [facility] [address], [place], [address], 06/06/2025 14:28:11 06/06/2006/06/2025 , lucretia dimas, bioph ysica l profi le + non-s tress test No observ ation record ed. [email or web address] [facility] [address], [place], [address], 06/06/2025 15:10:23 06/07/2006/07/2025 non-s tress test No observ ation record ed. [email or web address] [facility] [address], [place], [address], 2025 20:27:42 06/07/20 non-s tress test No observ ation record ed. [email or web address] Not Available 2024 15:33:58 06/13/2006/13/2025 , obste tric, follo w-up No observ ation record ed. [email or web address] [facility] [address], [place], [address], 06/14/2025 10:34:08 06/13/2006/13/2025 non-s tress test No observ ation record ed. [email or web address] [facility] [address], [place], [address], 06/19/2025 18:04:34 06/13/20 non-s tress test No observ ation record ed. [email or web address] [facility] [address], [place], [address], 06/13/2025 18:04:44 06/13/2006/14/2025 US, obste tric, follo w-up No observ ation record ed. [email or web address] [facility] [address], [place], [address], 06/14/2025 13:38:03 06/13/20 25 06/14/2025 US, obste tric, bioph ysica l profi le + non-s tress test No observ ation record ed. [email or web address] [facility] [address], [place], [address], 06/14/2025 13:38:17 06/15/20 25 2025 non-s tress test No observ ation record ed. [facility] [address], [place], [address], 06/17/2025 09:42:27 06/20/2006/20/2025 US, lucretia tric, bioph ysica l profi le + non-s tress test No observ ation record ed. [email or web address] [facility] [address], [place], [address], 06/20/2025 13:28:54 06/20/20 25 06/20/2025 US, obstjesús tric, follo w-up No observ ation record ed. [email or web address] [facility] [address], [place], [address], 06/20/2025 16:32:26 06/20/20 25 06/20/2025 non-s tress test No observ ation record ed. [email or web address] [facility] [address], [place], [address], 06/20/2025 18:00:22 06/20/20 non-s tress test No observ ation record ed. [email or web address] [facility] [address], [place], [address], 06/20/2025 17:57:42 06/27/20 25 06/27/2025 US, obste tric, bioph ysica l profi le No observ ation record ed. [email or web address] [facility] [address], [place], [address], 06/28/2025 11:16:29 06/27/2006/27/2025 US, obste tric, bioph ysica l profi le + non-s tress test No observ ation record ed. [facility] [address], [place], [address], 06/27/2025 18:49:37 06/27/20 25 06/27/2025 non-s tress test No observ ation record ed. [facility] [address], [place], [address], 06/27/2025 18:50:27 06/27/20 non-s tress test No observ ation record ed. [email or web address] [facility] [address], [place], [address], 06/27/2025 12:29:10 Result Notes None recorded. Problems Name Problem SNOMED Code Status Onset Date Resolution Date Notes Provider Name and Address Organization Details Recorded Time Anemia 088208369 Completed Trino serrano, [facility] 4 13:00:34 Pre-ecla mpsia 984152575 Completed 37w Delivery , 2x/wk antenata l testing Trino serrano, [facility] 4 13:00:34 Group B Streptoc occus carrier [id number] 103 Completed AMP in labor Trino serrano, [facility] 4 13:00:33 Pregnanc y 46376564 Completed 202210/27/2023 Jazz serrano, [facility] 5 12:31:25 Syphilis 08484302 Completed 2022 no s/s, +fta abs- tx schedule d 06/05,, 2 Britaney Saige [facility] 4 13:00:34 Infectio n by Analia hidaglo [id number] Completed 2022 2/2 positive - tinidazo le tx 2/5 - RONEN in 4wks Trino Moulton [facility] 4 13:00:34 Gonorrhe a 15520528 Completed 2022 PA sent 08/20 for Ceftriax one - RONEN NEGATIVE Trino Moulton [facility] 4 13:00:34 Pregnanc y 54624428 Active 2024 Jazz Yonis [facility] 5 12:31:25 Past pregnanc y history of pre-ecla mpsia 3847059072 13898 Active 2024 recommen ded ASA previous delivery PTL 36w6d 10/08/23 EDC 10/30/23 antenata l testing Juana Warner [facility] 5 11:26:48 History of syphilis 8205860410 985323 Active 2024 treated in previous pregnanc y titers 05/2023 1:32 decrease d to 1:8 03/17 [facility] 11:51:07 History of chlamydi al infectio n 661744225 Active 2024 Isidro Le MD [address], [place], [address], [place] [facility] 5 12:53:43 Iron deficien cy anemia 93308399 Active 2024 hgg decrease d 03-17 to 9-3 Iron infusion order faxed 05/04 _ pending insuranc e) [facility], [facility] 5 11:03:51 Finding of arrangem ent of fetus 13663301 Active 2024 Transver se Isidro Le MD [address], [place], [address], [facility] 17:33:30 Problem Notes None recorded. Medical [...] Address Organization Details Last Updated DateTime 06/20/2025 48590.49358 g 104/64 mm[Hg] Jazz Yonis [facility] 06/20/2025 12:00:20 Date Recorded Body height Body mass index (BMI) Body weight Systolic And Diastolic Provider Name and Address Organization Details Last Updated DateTime 06/20/2025 165.1 cm 24 kg/m2 38674.3 g 104/64 mm[Hg] Christine Adonis [facility] 06/20/2025 17:55:46 Social History Question Answer Notes LastModified by Organizat ion Details LastModified Time Tobacco Smoking Status Never Smoker [facility] 03/07/2023 14:21:17 Are You Blind Or Do You Have Difficulty Seeing? No [email or web address] Information n ot available 10/01/2023 What Is Your Level Of Caffeine Consumption? Occasional [email or web address] Information not available 10/01/2023 How Much Tobacco Do You Chew? None [email or web address] Information not available 10/01/2023 In The 14 Days Before Symptom Onset, Have You Had Close Contact With A Laboratory-confirm ed COVID-19 While That Case Was Ill? No [email or web address] Information n ot available 10/01/2023 In The 14 Days Before Symptom Onset, Have You Had Close Contact With A Person Who Is Under Investigation For COVID-19 While That Person Was Ill? No [email or web address] Information not available 10/01/2023 Have You Been To An Area Known To Be High Risk For COVID-19? No [email or web address] Information not available 10/01/2023 Are You Deaf Or Do You Have Serious Difficulty Hearing? No [email or web address] Information not available 10/01/2023 What Type Of Diet Are You Following? REGULAR [email or web address] Information n ot available 10/01/2023 What Is The Highest Grade Or Level Of School You Have Completed Or The Highest Degree You Have Received? [id number] [email or web address] Information not available 10/01/2023 Are There Any Guns Present In Your Home? No [email or web address] Information not available 10/01/2023 Do You Use Protection During Sex? Usually [email or web address] Information not available 10/01/2023 Do You Use Your Seat Belt Or Car Seat Routinely? Yes [email or web address] Information not available 10/01/2023 Do You Have Smoke And Carbon Monoxide Detectors In Your Home? No [email or web address] Information not available 10/01/2023 How Much Tobacco Do You Smoke? No [email or web address] Information not available 10/01/2023 Do You Use Sunscreen Routinely? No [email or web address] Information not available 10/01/2023 Have You Used IV Drugs? No [email or web address] Information not available 10/01/2023 Do You Have Difficulty Walking Or Climbing Stairs? No [email or web address] Information not available 10/01/2023 Sex: Unknown Functional Status Question Answer Note LastModified by Organizat ion Details LastModified Time Do you use any illicit or recreational drugs? No [email or web address] Information not available 10/01/2023 What is your level of alcohol consumption? None [email or web address] Information not available 10/01/2023 Are you able to walk independently without assistance or assistive devices? YESWOREST [id number] Information not available 10/01/2023 Are you able to care for yourself independently? Yes Information not available 10/01/2023 Do you have difficulty dressing, bathing, grooming, or toileting? No [email or web address] Information not available 10/01/2023 What is your exercise level? Moderate [email or web address] Information not available 10/01/2023 Mental Status Question Answer Note LastModified by Organization D etails LastModified Time Do you feel stressed (tense, restless, nervous, or anxious, or unable to sleep at night)? [id number] [email or web address] Information not available 10/01/2023 Family History Relationship [...] ICD10 Code Diagnosis IMO Codes Diagnosis Note [id number] Isidro Le MD [facility] [address] [address] 05/25/2025 15:01:48 05/25/2025 15:34:08 care: obstetric risk [id number] O09.293 O09.299 Z3A.33 [id number] Isidro Le MD [facility] [address],[place] [address] 05/25/2025 15:07:02 05/25/2025 17:32:49 Past history of pre-eclampsia [id number] 95505 Z87.59 [id number] Isidro Le MD [facility] [address],[place] [address] 05/25/2025 15:07:21 05/25/2025 17:10:12 care status 366500009 Z34.83 50710138 [id number] Mita Tavera [facility] [address],[place] [address] 05/27/2025 09:25:56 05/27/2025 09:44:43 Backache 477229882 M54.9 [id number] Acute headache 275252873 R51.9 [id number] call this afternoon if no relief will try imitrex [id number] Isidro Le MD [facility] [address],[place] [address] 05/30/2025 11:35:55 05/30/2025 12:10:04 care: obstetric risk 998967034 O09.293 Z3A.34 6468143 [id number] Isidro Le MD [facility] [address],[place] [address] 05/30/2025 11:36:32 05/30/2025 13:02:53 Pre-eclampsia 966058146 O14.90 797251 [id number] Isidro Le MD [facility] [address],[place] [address] 05/30/2025 11:36:55 05/30/2025 13:17:39 care status 193368854 Z34.83 [id number] MD Clay Aragon [address],[place] [address] 06/06/2025 13:30:49 06/06/2025 14:28:09 care: obstetric risk 091017923 O09.293 Z3A.35 8768508 [id number] MD Clay Aragon [address],[place] [address] 06/06/2025 13:31:14 2025 10:42:54 Past history of pre-eclampsia 4711413558 17812 Z87.59 [id number] [id number] MD Clay Aragon [address],[place] [address] 06/06/2025 13:31:30 06/06/2025 15:34:03 care status 643698628 Z34.83 [id number] [id number] MD Clay Aragon [address],[place] [address] 06/13/2025 15:39:53 06/14/2025 09:09:52 care: obstetric risk 908470486 O09.293 Z3A.36 2954167 [id number] BLACK YUN MD [facility] [address],[place] [address] 06/13/2025 15:40:02 06/14/2025 09:09:28 Past history of pre-eclampsia 3059257721 20582 Z87.59 [id number] [id number] MD Clay Aragon [address],[place] [address] 06/13/2025 15:40:14 06/13/2025 17:38:16 care status 083637581 Z34.83 [id number] MD Clay Aragon [address],[place] [address] 06/20/2025 10:15:50 06/20/2025 11:10:24 care: obstetric risk 373486154 O09.293 Z3A.37 [id number] [id number] MD Clay Aragon [address],[place] [address] 06/20/2025 10:16:00 06/21/2025 08:20:28 Past history of pre-eclampsia 3480618737 93265 Z87.59 [id number] Isidro Le MD [facility] [address] [address] 06/20/2025 10:16:11 06/20/2025 12:23:37 care status 038871745 Z34.83 [id number] Health Concerns Section Related Observation LastModified by Organization Detai ls LastModified Time None Recorded Concern Status LastModified by Organization Details LastModified Time None Recorded Payers Encounter Date Sequence Insurance Name Policy Number Policy Vital Covered Member ID Vital Member ID Guarantor Name 06/20/2025 1 [facility] (MEDICAID HMO) [id number] Gisela Bates [id number] Gisela Bates Notes Date Note Type Note Provider Name and Address Organization Details Recorded Time 06/20/2025 text/html Generic HPI TemplateReported by Patient Isidro Le MD [address], [place], [address], [facility] 06/20/2025 12:18:00 OBGyn Episode Ob Episode Information Episode Created Date Number of Fetuses Patient Bloodtype Patient rh Status Prepregnancy Weight lbs Domestic Partner Domestic Partner Phone Father Name Wood Repatcher Status 03/17/20 25 1 B Positive OPEN Fetus Data First Name Last Name Admitted to NICU Weight (g) Sex Living Outcome Pediatric Complications Fetus ID Race Codes Race Delivery Type [id number] Problems Problem Notes + RPR tx spoke with [facility] confirmed pt tx previous RPR 06/05/23, 06/12, & 06/19/23 titter 1:32 decreased to 1:8 per Pat antibody can be + but titer decreasing no tx unless pt sx's rash, lesions sx's rec tx if pt sx's schedule appt for evaluation. RPT labs @ 28wks , fax all labs to health dept [phone] . 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 03/31 pt denies sx's JGBilateral double renal artery Problem Name Start Date End Date Resolution Snomed Code Not e History of syphilis 03/17/2025 [id number] treated in previous pregnancytiters 05/2023 1:32 decreased to 1:8 03/17 Iron deficiency anemia 05/04/2025 18919949 hgg decreased to 9-3 Iron infusion order faxed 05/04 _ pending insurance) History of chlamydial infection 03/17/2025 [id number] Past history of pre-eclampsia 03/17/2025 [id number] recommended ASAprevious delivery PTL 36w6d 10/08/23 EDC 10/30/23 testing Finding of arrangement of fetus 06/13/2025 [id number] Transverse Jerome Calculation Initial Jerome Date Initial [...] Weight in lbs Pre/Post Dialysis Refused Weight 131.628267150135 BP Diastolic BP Location Tested BP Systolic [...] Weight in lbs Pre/Post Dialysis Refused Weight 131.835708476939 BP Diastolic BP Location Tested BP Systolic [...] Type Weight in lbs Pre/Post Dialysis Refused 133.407784946933 BP Diastolic BP Location Tested BP Systolic [...] Type Weight in lbs Pre/Post Dialysis Refused 135.82836912168 BP Diastolic BP Location Tested BP Systolic [...] Type Weight in lbs Pre/Post Dialysis Refused 135.96498146196 BP Diastolic BP Location Tested BP Systolic [...] Weight in lbs Pre/Post Dialysis Refused Weight 139.54578941234 BP Diastolic BP Location Tested BP Systolic BP Type 76 L arm 112 sitting Fetus Heart Rate Present Fetus Movement A Yes Comments Flowsheet Date 05/25/2025 Solorzano Score Blood Edema Fundus Height Fundus Units Glucose Ketones Leukocytes Nitrite Labor Signs Protein Cervic Dilation Cervic Effacement Cervic Station Type Weight in lbs Pre/Post Dialysis Refused Weight 149.79711344112 BP Diastolic BP Location Tested BP Systolic [...] Weight in lbs Pre/Post Dialysis Refused Weight 138.244175725555 BP Diastolic BP Location Tested BP Systolic BP Type 78 L arm 120 sitting Fetus Heart Rate Present A 139 Fetus Movement A Yes Comments was at [facility] yesterday wi th ruiz and back pain [...] Type Weight in lbs Pre/Post Dialysis Refused 139.367406322191 BP Diastolic BP Location Tested BP Systolic BP Type 74 L arm 119 sitting Fetus Heart Rate Present Fetus Movement A Yes Comments Flowsheet Date 05/30/2025 Solorzano Score Blood Edema Fundus Height Fundus Units Glucose Ketones Leukocytes Nitrite Labor Signs Protein Cervic Dilation Cervic Effacement Cervic Station Type Weight in lbs Pre/Post Dialysis Refused 139.597921924583 BP Diastolic BP Location Tested BP Systolic [...] Type Weight in lbs Pre/Post Dialysis Refused 142.156757224621 BP Diastolic BP Location Tested BP Systolic [...] Type Weight in lbs Pre/Post Dialysis Refused 144.272843297163 BP Diastolic BP Location Tested BP Systolic BP Type 65 L arm 98 sitting Fetus Heart Rate Present Fetus Movement A Yes Comments Flowsheet Date 06/13/2025 Solorzano Score Blood Edema Fundus Height Fundus Units Glucose Ketones Leukocytes Nitrite Labor Signs Protein Cervic Dilation Cervic Effacement Cervic Station Type Weight in lbs Pre/Post Dialysis Refused 144.994232564013 BP Diastolic BP Location Tested BP Systolic [...] Weight in lbs Pre/Post Dialysis Refused Weight 144.08066043786 BP Diastolic BP Location Tested BP Systolic BP Type 64 L arm 104 sitting Fetus Heart Rate Present Fetus Movement A Yes Comments Flowsheet Date 06/20/2025 Solorzano Score Blood Edema Fundus Height Fundus Units Glucose Ketones Leukocytes Nitrite Labor Signs Protein Cervic Dilation Cervic Effacement Cervic Station Type Weight in lbs Pre/Post Dialysis Refused 144.281925695357 BP Diastolic BP Location Tested BP Systolic [...] Type Weight in lbs Pre/Post Dialysis Refused 147.183607329924 BP Diastolic BP Location Tested BP Systolic BP Type 70 L arm 104 sitting Fetus Heart Rate Present Fetus Movement A Yes Comments Flowsheet Date 06/27/2025 Solorzano Score Blood Edema Fundus Height Fundus Units Glucose Ketones Leukocytes Nitrite Labor Signs Protein Cervic Dilation Cervic Effacement Cervic Station Type Weight in lbs Pre/Post Dialysis Refused 147.528298327350 BP Diastolic BP Location Tested BP Systolic [...]
--- OUTSIDE RECORDS SUMMARY | 2025-07-01 06:19 | XMS_ITS | Continuity of Care Document ---
Author Organization [facility], [facility] Address [address] [place] [address] Assessment No assessment recorded. Plan of Treatment [...] d. Imaging non-str ess test 2024 025 [email or web address] [place], [address], [address], [place], [address], 05/25/2025 17:32:49 Medication Orders None recorde d. Patient TargetsNo [...] Resul ting Lab: [facility] [address] [facility] [address] Tel: CULTU RE ----- ----- ----- --- No growt h in 1 day (dete ction level of 10,00 0 colon ies / ml.) Not Available [facility] (Lab) [address], [place], [address], 03/19/2025 07:23:20 03/17/20 25 03/17/2025 CBC W/DIF F WBC 5.0 10'3/ uL 3.5-[address] [facility] (Lab) [address], [place], [address], 03/21/2025 14:27:06 03/17/20 25 03/17/2025 CBC W/DIF F RBC 3.57 10'6/ uL (based on docume nted legal sex) 3.80-5 [address] [facility] (Lab) [address], [place], [address], 03/21/2025 14:27:06 03/17/20 25 03/17/2025 CBC W/DIF F HGB 10.5 g/dL (based on docume nted legal sex) 11.6-1 [address] [facility] (Lab) [address], [place], [address], 03/21/2025 14:27:06 03/17/20 25 03/17/2025 CBC W/DIF F HCT 30.2 % (based on docume nted legal sex) 34.0-[address] [facility] (Lab) [address], [place], [address], 03/21/2025 14:27:06 03/17/20 25 03/17/2025 CBC W/DIF F MCV 84.6 fL 80.0-[address] [facility] (Lab) [address], [place], [address], 03/21/2025 14:27:06 03/17/20 25 03/17/2025 CBC W/DIF F MCH 29.4 pg 27.0-[address] [facility] (Lab) [address], [place], [address], 03/21/2025 14:27:06 03/17/20 25 03/17/2025 CBC W/DIF F MCHC 34.8 g/dL 32.0-[address] [facility] (Lab) [address], [place], [address], 03/21/2025 14:27:06 03/17/20 25 03/17/2025 CBC W/DIF F RDW 13.3 % 11.0-[address] [facility] (Lab) [address], [place], [address], 03/21/2025 14:27:06 03/17/20 25 03/17/2025 CBC W/DIF F plt 235 10'3/ uL 150-[address] [facility] (Lab) [address], [place], [address], 03/21/2025 14:27:06 03/17/20 25 03/17/2025 CBC W/DIF F MPV 10.4 fL 8.8-[address] [facility] (Lab) [address], [place], [address], 03/21/2025 14:27:06 03/17/20 25 03/17/2025 CBC W/DIF F NRBC's 0.0 % 0.[address] [facility] (Lab) [address], [place], [address], 03/21/2025 14:27:06 03/17/20 25 03/17/2025 CBC W/DIF F absolute NRBCs 0.0 10'3/ uL no refere nce range establ ished Not Available [facility] (Lab) [address], [place], [address], 03/21/2025 14:27:06 03/17/20 25 03/17/2025 CBC W/DIF F neutrophils 72.4 % 34.0-[address] [facility] (Lab) [address], [place], [address], 03/21/2025 14:27:06 03/17/20 25 03/17/2025 CBC W/DIF F lymphocytes 14.4 % 15.0-5 0.[address] [facility] (Lab) [address], [place], [address], 03/21/2025 14:27:06 03/17/20 25 03/17/2025 CBC W/DIF F monocytes 6.6 % 1.0-[address] [facility] (Lab) [address], [place], [address], 03/21/2025 14:27:06 03/17/20 25 03/17/2025 CBC W/DIF F eosinophils 5.2 % 0.0-8. [address] [facility] (Lab) [address], [place], [address], 03/21/2025 14:27:06 03/17/20 25 03/17/2025 CBC W/DIF F basophils 0.4 % 0.0-2. [address] [facility] (Lab) [address], [place], [address], 03/21/2025 14:27:06 03/17/20 25 03/17/2025 CBC W/DIF [...] ately if prese nt. Not Available [facility] (Lab) [address], [place], [address], 03/21/2025 14:27:06 03/17/20 25 03/17/2025 CBC W/DIF F absolute neutrophils 3.6 10'3/ uL 1.5-8. [address] [facility] (Lab) [address], [place], [address], 03/21/2025 14:27:06 03/17/20 25 03/17/2025 CBC W/DIF F absolute lymphocytes 0.7 10'3/ uL 1.0-4. [address] [facility] (Lab) [address], [place], [address], 03/21/2025 14:27:06 03/17/20 25 03/17/2025 CBC W/DIF F absolute monocytes 0.3 10'3/ uL 0.2-1. [address] [facility] (Lab) [address], [place], [address], 03/21/2025 14:27:06 03/17/20 25 03/17/2025 CBC W/DIF F absolute eosinophils 0.3 10'3/ uL 0.0-0. [address] [facility] (Lab) [address], [place], [address], 03/21/2025 14:27:06 03/17/20 25 03/17/2025 CBC W/DIF F absolute basophils 0.0 10'3/ uL 0.0-0. [address] [facility] (Lab) [address], [place], [address], 03/21/2025 14:27:06 03/17/20 25 03/17/2025 CBC W/DIF F absolute immature granulocytes 0.1 10'3/ uL 0.00-0 .10 Refer ence range s for nonbi nary/ inter sex or unspe cifie d gende r patie nts have not been estab lishe d. Pleparish e refer to the omar wing table for range s estab lishe d for cisge nder patie nts and evalu ate in the clini smita ronaldo xt of the indiv idual patie nt: https ://la bhand book. nm.or g/gen derx Not Available [facility] (Lab) [address], [place], [address], 03/21/2025 14:27:06 03/17/2003/17/2025 HIV 1/2 ANTIG EN/AN TIBOD Y, REFLE X CONFI RMATI ON HIV antigen/anti body Nonrea ctive nonrea ctive HIV-1 antig en and HIV-1 /HIV- 2 antib odies were not detec jluis. No labor atory evide nce of HIV infec tion. Not Available [facility] (Lab) [address], [place], [address], 03/21/2025 14:27:06 03/17/20 25 03/17/2025 HEPAT ITIS B SURFA CE ANTIG EN hepatitis B surface antigen Non-re active non-re active This assay was perfo rmed using [facility] [employer] [facility] [employer] ratio n reage nts and test kits. Value s obtai gayla with other assay metho ds or kits canno t be used inter lee eably . Not Available [facility] (Lab) [address], [place], [address], 03/21/2025 14:27:07 03/17/20 25 03/17/2025 HEPAT ITIS C ANTIB ELOISE SCREE N, REFLE X TO CONFI RMATI ON hepatitis C antibody Non-re active non-re active Antib odies to HCV Not Detec jluis, does not exclu de the possi bilit y of expos ure to HCV. Not Available [facility] (Lab) [address] [place], [address], 03/21/2025 14:27:07 03/17/20 25 03/17/2025 RUBEL LA IGG ANTIB ELOISE, QUANT rubella antibodies, IgG Reacti ve reacti ve Not Available [facility] (Lab) [address], [place], [address], 03/21/2025 14:27:08 03/17/20 25 03/17/2025 RUBEL LA IGG ANTIB ELOISE, QUANT rubella antibodies, IgG quant 14.2 IU/mL >=10 Non-r eacti ve (Non- Immun e) <10 IU/mL React reyna (Immu ne) > or = 10 IU/mL Not Available [facility] (Lab) [address], [place], [address], 03/21/2025 14:27:08 03/17/20 25 03/17/2025 TYPE/ RH/SC REEN ABO/Rh type B POS Not Available [facility] (Lab) [address], [place], [address], 03/21/2025 14:27:08 03/17/20 25 03/17/2025 TYPE/ RH/SC REEN antibody screen NEG Not Available [facility] (Lab) [address], [place], [address], 03/21/2025 14:27:08 03/17/20 25 03/17/2025 TYPE/ RH/SC REEN exp date 2024 23:[address] [facility] (Lab) [address], [place], [address], 03/21/2025 14:27:08 03/17/20 25 03/17/2025 HEMOG LOBIN [...] Actio n sugge sted Not Available [facility] (Lab) [address], [place], [address], 03/21/2025 14:27:09 03/17/20 25 03/17/2025 RPR SCREE [...] (TP-P A) testi ng. Not Available [facility] (Lab) [address], [place], [address], 03/21/2025 14:27:09 03/17/20 25 03/17/2025 RPR SCREE N, REFLE X TITER /CONF IRMAT ION RPR titer 1:8 . none high Not Available [facility] (Lab) [address], [place], [address], 03/21/2025 14:27:09 03/17/20 25 03/17/2025 SYPHI LIS [...] of the syphi lis rever se [facility]gor [facility] and resul ts, see: https ://ganesh sena semanticlabs / it-mm files /Syph ilis_ Serol ogy_A [...] syphi lis test. Test Perfo rmed by: [facility] [place] [address], [place] [address] Lab Direc tor: Jay Manzano nn Ph.D. ; CLIA# [id number] [facility] (Lab) [address], [place], [address], 03/21/2025 14:27:10 03/29/2003/29/2025 CT/GC AND TRICH OMONA S VAGIN SILVA (RRNA ), URINE chlamydia trachomatis, PCR Negati ve negati ve Not Available [facility] (Lab) [address] [place], [address], 03/30/2025 14:21:33 03/29/20 25 03/29/2025 CT/GC AND TRICH OMONA S VAGIN SIVLA (RRNA ), URINE neisseria gonorrhoeae, PCR Negati ve negati ve Not Available [facility] (Lab) [address] [place], [address], 03/30/2025 14:21:33 03/29/20 25 03/29/2025 CT/GC AND TRICH OMONA S VAGIN SILVA (RRNA ), URINE trichomonas vaginalis ribosomal RNA (rrna) Negati ve negati ve Not Available [facility] (Lab) [address] [place], [address], 03/30/2025 14:21:33 04/20/20 25 04/20/2025 HEMAT OCRIT (HCT) HCT 29.1 % (based on docume nted legal sex) 34.0-[address] [facility] (Lab) [address], [place], [address], 04/23/2025 15:25:44 04/20/20 25 04/20/2025 HEMOG LOBIN (HGB) HGB 9.3 g/dL (based on docume nted legal sex) 11.6-1 [address] [facility] (Lab) [address], [place], [address], 04/23/2025 15:25:45 04/20/20 25 04/20/2025 HIV 1/2 ANTIG EN/AN TIBOD Y, REFLE X CONFI RMATI ON HIV antigen/anti body Nonrea ctive nonrea ctive HIV-1 antig en and HIV-1 /HIV- 2 antib odies were not detec jluis. No labor atory evide nce of HIV infec tion. Not Available [facility] (Lab) [address], [place], [address], 04/23/2025 15:25:45 04/20/20 25 04/20/2025 RPR SCREE [...] (TP-P A) testi ng. Not Available [facility] (Lab) [address], [place], [address], 04/23/2025 15:25:46 04/20/20 25 04/20/2025 RPR SCREE N, REFLE X TITER /CONF IRMAT ION RPR titer 1:8 . none high Not Available [facility] (Lab) [address], [place], [address], 04/23/2025 15:25:46 04/20/2004/20/2025 SYPHI LIS ANTIB ELOISE, TREPO NEMA PALLI [...] of the syphi lis rever se [facility]gor [facility] and resul ts, see: https ://ganesh sena semanticlabs / it-mm files /Syph ilis_ Serol ogy_A [...] syphi lis test. Test Perfo rmed by: [facility] [place] [address] , [place] [address] Lab Direc tor: Jay Manzano nn Ph.D. ; CLIA# [id number] [facility] (Lab) [address], [place], [address], 04/23/2025 15:25:46 03/17/2003/17/2025 US, obste tric, 2nd or 3rd trime ster No observ ation record ed. [email or web address] [address], [place], [address], 03/17/2025 15:45:06 03/17/20 25 03/17/2025 US, obste tric, 2nd or 3rd trime ster No observ ation record ed. [email or web address] [facility] [address], [place], [address], 03/17/2025 12:51:02 03/17/20 25 03/17/2025 US, obste tric, 2nd or 3rd trime ster No observ ation record ed. [email or web address] [facility] [address], [place], [address], 04/07/2025 21:57:11 03/17/20 25 03/17/2025 US, obste tric, 2nd or 3rd trime ster No observ ation record ed. [email or web address] [facility] [address], [place], [address], 03/17/2025 23:04:51 03/17/20 25 03/17/2025 US, obste tric, 2nd or 3rd trime ster No observ ation record ed. [email or web address] [facility] [address], [place], [address], 03/17/2025 15:45:46 03/17/20 25 03/17/2025 US, obste tric, 2nd or 3rd trime ster No observ ation record ed. [email or web address] [facility] [address], [place], [address], 03/18/2025 17:16:02 05/18/20 25 05/18/2025 US, obste tric, follo w-up No observ ation record ed. [email or web address] [place] [address], [place], [address], 05/18/2025 18:23:17 05/18/20 25 05/18/2025 US, obste tric, follo w-up No observ ation record ed. [email or web address] [facility] [address], [place], [address], 05/20/2025 13:20:22 05/25/2005/25/2025 US, obste tric, bioph ysica l profi le + non-s tress test No observ ation record ed. [email or web address] [facility] [address], [place], [address], 05/25/2025 17:34:34 05/25/2005/25/2025 US, obste tric, follo w-up No observ ation record ed. [email or web address] [facility] [address], [place], [address], 05/26/2025 14:44:53 05/25/2005/25/2025 non-s tress test No observ ation record ed. [email or web address] [place] [address], [place], [address], 05/25/2025 18:39:52 05/25/20 non-s tress test No observ ation record ed. [email or web address] [facility] [address], [place], [address], 05/25/2025 17:32:07 05/30/2005/30/2025 US, obste tric, bioph ysica l profi le + non-s tress test No observ ation record ed. [email or web address] [facility] [address], [place], [address], 05/30/2025 12:42:17 05/30/2005/30/2025 US, obste tric, bioph ysica l profi le + non-s tress test No observ ation record ed. [email or web address] [facility] [address], [place], [address], 05/30/2025 17:35:43 05/30/2005/30/2025 non-s tress test No observ ation record ed. [email or web address] [facility] [address], [place], [address], 05/30/2025 13:00:42 05/30/20 non-s tress test No observ ation record ed. [email or web address] [facility] [address], [place], [address], 05/30/2025 13:02:59 06/06/2006/06/2025 US, obste tric, bioph ysica l profi le + non-s tress test No observ ation record ed. [email or web address] [facility] [address], [place], [address], 06/06/2025 14:28:11 06/06/2006/06/2025 US, obste tric, bioph ysica l profi le + non-s tress test No observ ation record ed. [email or web address] [facility] [address], [place], [address], 06/06/2025 15:10:23 06/07/2006/07/2025 non-s tress test No observ ation record ed. [email or web address] [place] [address], [place], [address], 2025 20:27:42 06/07/20 non-s tress test No observ ation record ed. [email or web address] Not Available 2024 15:33:58 06/13/2006/13/2025 US, obste tric, follo w-up No observ ation record ed. [email or web address] [facility] [address], [place], [address], 06/14/2025 10:34:08 06/13/20 25 06/13/2025 non-s tress test No observ ation record ed. [facility] [address], [place], [address], 06/19/2025 18:04:34 06/13/20 non-s tress test No observ ation record ed. [email or web address] [place] [address], [place], [address], 06/13/2025 18:04:44 06/13/2006/14/2025 US, obstjesús tric, follo w-up No observ ation record ed. [facility] [address], [place], [address], 06/14/2025 13:38:03 06/13/2006/14/2025 US, obste tric, bioph ysica l profi le + non-s tress test No observ ation record ed. [facility] [address], [place], [address], 06/14/2025 13:38:17 06/15/2006/07/2025 non-s tress test No observ ation record ed. [facility] [address], [place], [address], 06/17/2025 09:42:27 06/20/2006/20/2025 US, lucretia tric, bioph ysica l profi le + non-s tress test No observ ation record ed. [email or web address] [facility] [address], [place], [address], 06/20/2025 13:28:54 06/20/2006/20/2025 US, obste tric, follo w-up No observ ation record ed. [facility] [address], [place], [address], 06/20/2025 16:32:26 06/20/2012 0706/20/2025 non-s tress test No observ ation record ed. [email or web address] [facility] [address], [place], [address], 06/20/2025 18:00:22 06/20/20 25 non-s tress test No observ ation record ed. [address], [place], [address], 06/20/2025 17:57:42 06/27/20 25 06/27/2025 US, obste tric, bioph ysica l profi le No observ ation record ed. [email or web address] [facility] [address], [place], [address], 06/28/2025 11:16:29 06/27/20 25 06/27/2025 US, obste tric, bioph ysica l profi le + non-s tress test No observ ation record ed. [facility] [address], [place], [address], 06/27/2025 18:49:37 06/27/20 25 06/27/2025 non-s tress test No observ ation record ed. [facility] [address], [place], [address], 06/27/2025 18:50:27 06/27/20 25 non-s tress test No observ ation record ed. [address], [place], [address], 06/27/2025 12:29:10 Result Notes None recorded. Problems Name Problem SNOMED Code Status Onset Date Resolution Date Notes Provider Name and Address Organization Details Recorded Time Anemia 513089247 Completed Trino Moulton [facility] [place] - [facility] 13:00:34 Pre-ecla mpsia 103359946 Completed 37w Delivery , 2x/wk antenata l testing Trino Moulton [facility] 4 13:00:34 Group B Streptoc occus carrier 0911913936 103 Completed [facility] 4 13:00:33 Pregnanc y 08583073 Completed 202210/27/2023 Jazz Somers [facility] 5 12:31:25 Syphilis 97080711 Completed 2022 no s/s, +fta abs- tx schedule d 06/05,, 2 Trino Moulton [facility] 4 13:00:34 Infectio n by Trichomo gwen [id number] Completed 2022 2/2 positive - tinidazo le tx 2/5 - RONEN in 4wks [facility] 13:00:34 Gonorrhe a 72524233 Completed 2022 PA sent 08/20 for Ce[facility]riax one [facility] 13:00:34 Pregnanc y 26432767 Active 2024 Jazz Somers [facility] 5 12:31:25 Past pregnanc y history of pre-ecla mpsia 8650356038 05495 Active 2024 recommen ded ASA previous delivery PTL 36w6d 10/08/23 EDC 10/30/23 antenata l testing Juana Warner [facility] 5 11:26:48 History of syphilis 3053594005 805528 Active 2024 treated in previous pregnanc y titers 05/2023 1:32 decrease d to 1:8 03/17 Juana serrano, [facility] 5 11:51:07 History of chlamydi al infectio n 212037611 Active 2024 Isidro Le MD [address], [place], [address], [facility] 5 12:53:43 Iron deficien cy anemia 99675497 Active 2024 hgg decrease d 03-17 to 9- Iron infusion order faxed 05/04 _ pending insuranc e) Juana serrano, [facility] 5 11:03:51 Finding of arrangem ent of fetus 40617404 Active 2024 Transver se Isidro Le MD [address], [place], [address], [facility] 5 17:33:30 Problem Notes None [...] Last Updated DateTime 165.1 cm 24.8 kg/m2 44067.2 6 g 165.1 cm 45328.3 4 g 124/70 mm[Hg] 112/76 mm[Hg] Christine Lamb [facility] 17:29:22 Social History Question Answer Notes LastModified by Organizat ion Details LastModified Time Tobacco Smoking Status Never Smoker Jacqueline Eunice serrano [facility] 03/07/2023 14:21:17 Are You Blind Or Do You Have Difficulty Seeing? No [email or web address] Information n ot available 10/01/2023 What Is Your Level Of Caffeine Consumption? Occasional [email or web address] Information not available 10/01/2023 How Much Tobacco Do You Chew? None [email or web address] Information not available 10/01/2023 In The 14 Days Before Symptom Onset, Have You Had Close Contact With A Laboratory-confirm ed COVID-19 While That Case Was Ill? No [email or web address] Information n ot available 10/01/2023 In The 14 Days Before Symptom Onset, Have You Had Close Contact With A Person Who Is Under Investigation For COVID-19 While That Person Was Ill? No [email or web address] Information not available 10/01/2023 Have You Been To An Area Known To Be High Risk For COVID-19? No [email or web address] Information not available 10/01/2023 Are You Deaf Or Do You Have Serious Difficulty Hearing? No [email or web address] Information not available 10/01/2023 What Type Of Diet Are You Following? REGULAR [email or web address] Information n ot available 10/01/2023 What Is The Highest Grade Or Level Of School You Have Completed Or The Highest Degree You Have Received? [id number] Information not available 10/01/2023 Are There Any Guns Present In Your Home? No [email or web address] Information not available 10/01/2023 Do You Use Protection During Sex? Usually Information not available 10/01/2023 Do You Use Your Seat Belt Or Car Seat Routinely? Yes [email or web address] Information not available 10/01/2023 Do You Have Smoke And Carbon Monoxide Detectors In Your Home? No [email or web address] Information not available 10/01/2023 How Much Tobacco Do You Smoke? No [email or web address] Information not available 10/01/2023 Do You Use Sunscreen Routinely? No [email or web address] Information not available 10/01/2023 Have You Used IV Drugs? No [email or web address] Information not available 10/01/2023 Do You Have Difficulty Walking Or Climbing Stairs? No [email or web address] Information not available 10/01/2023 Sex: Unknown Functional Status Question Answer Note LastModified by Organizat ion Details LastModified Time Do you use any illicit or recreational drugs? No [email or web address] Information not available 10/01/2023 What is your level of alcohol consumption? None [email or web address] Information not available 10/01/2023 Are you able to walk independently without assistance or assistive devices? [email or web address] Information not available 10/01/2023 Are you able to care for yourself independently? Yes [email or web address] Information not available 10/01/2023 Do you have difficulty dressing, bathing, grooming, or toileting? No [email or web address] Information not available 10/01/2023 What is your exercise level? Moderate [email or web address] Information not available 10/01/2023 Mental Status Question Answer Note LastModified by Organization D etails LastModified Time Do you feel stressed (tense, restless, nervous, or anxious, or unable to sleep at night)? [id number] [email or web address] Information not available 10/01/2023 Family History Relationship [...] N Drug/Latex Allergies/Reactions N Blood Transfusion N Lung Disease N [...] ICD10 Code Diagnosis IMO Codes Diagnosis Note [id number] MD Clay Aragon [address],[place] [address] 05/05/2025 16:07:26 05/05/2025 17:26:18 care status 541665939 Z34.83 [id number] MD [address],[place] [address] 05/18/2025 15:16:07 05/18/2025 15:56:40 care: obstetric risk 830833585 O09.293 Z3A.32 [id number] MD Clay Aragon [address],[place] [address] 05/18/2025 15:17:46 05/18/2025 16:51:15 care status 529758449 Z34.83 [id number] MD Clay Aragon [address],[place] [address] 05/25/2025 15:01:48 05/25/2025 15:34:08 care: obstetric risk 568501522 O09.293 O09.299 Z3A.33 [id number] MD Clay Aragon [address],[place] [address] 05/25/2025 15:07:02 05/25/2025 17:32:49 Past history of pre-eclampsia [id number] Z87.59 [id number] MD Clay Aragon [address],[place] [address] 05/25/2025 15:07:21 05/25/2025 17:10:12 care status [id number] Z34.83 [id number] Health Concerns Section Related Observation LastModified by Organization Detai ls LastModified Time None Recorded Concern Status LastModified by Organization Details LastModified Time None Recorded Payers Encounter Date Sequence Insurance Name Policy Number Policy Vital Covered Member ID Vital Member ID Guarantor Name 05/25/2025 1 [place] [facility] Gisela Bates [id number] Giselachristiane Al Bates Notes Date Note Type Note Provider Name and Address Organization Details Recorded Time 05/25/2025 text/html Generic HPI TemplateReported by Patient Isidro Le MD [address], [place], [address], [facility] 05/25/2025 17:09:10 OBGyn Episode Ob Episode Information Episode Created Date Number of Fetuses Patient Bloodtype Patient rh Status Prepregnancy Weight lbs Domestic Partner Domestic Partner Phone Father Name Ammonia Refrigeration Technician Status 03/17/20 25 1 B Positive OPEN Fetus Data First Name Last Name Admitted to NICU Weight (g) Sex Living Outcome Pediatric Complications Fetus ID Race Codes Race Delivery Type [id number] Problems Problem Notes + RPR tx spoke with [facility] confirmed pt tx previous RPR 06/05/23, 06/12, & 06/19/23 titter 1:32 decreased to 1:8 per Pat antibody can be + but titer decreasing no tx unless pt sx's rash, lesions sx's rec tx if pt sx's schedule appt for evaluation. RPT labs @ 28wks , fax all labs to health dept [phone] . 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 03/31 pt denies sx's JGBilateral double renal artery Problem Name Start Date End Date Resolution Snomed Code Not e History of syphilis 03/17/2025 [id number] treated in previous pregnancytiters 05/2023 1:32 decreased to 1:8 03/17 Iron deficiency anemia 05/04/2025 [id number] hgg decreased to 9-3 Iron infusion order faxed 05/04 _ pending insurance) History of chlamydial infection 03/17/2025 [id number] Past history of pre-eclampsia 03/17/2025 [id number] recommended ASAprevious delivery PTL 36w6d 10/08/23 EDC 10/30/23 testing Finding of arrangement of fetus 06/13/2025 [id number] Transverse Jerome Calculation Initial Jerome Date Initial [...] Weight in lbs Pre/Post Dialysis Refused Weight 131.884544097555 BP Diastolic BP Location Tested BP Systolic [...] Weight in lbs Pre/Post Dialysis Refused Weight 131.328415890613 BP Diastolic BP Location Tested BP Systolic [...] Type Weight in lbs Pre/Post Dialysis Refused 133.322753328869 BP Diastolic BP Location Tested BP Systolic [...] Type Weight in lbs Pre/Post Dialysis Refused 135.02196735614 BP Diastolic BP Location Tested BP Systolic [...] Type Weight in lbs Pre/Post Dialysis Refused 135.07958254232 BP Diastolic BP Location Tested BP Systolic [...] Weight in lbs Pre/Post Dialysis Refused Weight 139.99838554161 BP Diastolic BP Location Tested BP Systolic BP Type 76 L arm 112 sitting Fetus Heart Rate Present Fetus Movement A Yes Comments Flowsheet Date 05/25/2025 Solorzano Score Blood Edema Fundus Height Fundus Units Glucose Ketones Leukocytes Nitrite Labor Signs Protein Cervic Dilation Cervic Effacement Cervic Station Type Weight in lbs Pre/Post Dialysis Refused Weight 149.59764402616 BP Diastolic BP Location Tested BP Systolic [...] Weight in lbs Pre/Post Dialysis Refused Weight 138.169783467002 BP Diastolic BP Location Tested BP Systolic BP Type 78 L arm 120 sitting Fetus Heart Rate Present A 139 Fetus Movement A Yes Comments was at [facility] yesterday wi th ruiz and back pain [...] Type Weight in lbs Pre/Post Dialysis Refused 139.922964122583 BP Diastolic BP Location Tested BP Systolic BP Type 74 L arm 119 sitting Fetus Heart Rate Present Fetus Movement A Yes Comments Flowsheet Date 05/30/2025 Solorzano Score Blood Edema Fundus Height Fundus Units Glucose Ketones Leukocytes Nitrite Labor Signs Protein Cervic Dilation Cervic Effacement Cervic Station Type Weight in lbs Pre/Post Dialysis Refused 139.514429942238 BP Diastolic BP Location Tested BP Systolic [...] Type Weight in lbs Pre/Post Dialysis Refused 142.095870094029 BP Diastolic BP Location Tested BP Systolic [...] Type Weight in lbs Pre/Post Dialysis Refused 144.076094526271 BP Diastolic BP Location Tested BP Systolic BP Type 65 L arm 98 sitting Fetus Heart Rate Present Fetus Movement A Yes Comments Flowsheet Date 06/13/2025 Solorzano Score Blood Edema Fundus Height Fundus Units Glucose Ketones Leukocytes Nitrite Labor Signs Protein Cervic Dilation Cervic Effacement Cervic Station Type Weight in lbs Pre/Post Dialysis Refused 144.410971303800 BP Diastolic BP Location Tested BP Systolic [...] Weight in lbs Pre/Post Dialysis Refused Weight 144.26714051260 BP Diastolic BP Location Tested BP Systolic BP Type 64 L arm 104 sitting Fetus Heart Rate Present Fetus Movement A Yes Comments Flowsheet Date 06/20/2025 Solorzano Score Blood Edema Fundus Height Fundus Units Glucose Ketones Leukocytes Nitrite Labor Signs Protein Cervic Dilation Cervic Effacement Cervic Station Type Weight in lbs Pre/Post Dialysis Refused 144.235295968320 BP Diastolic BP Location Tested BP Systolic [...] Type Weight in lbs Pre/Post Dialysis Refused 147.409424678570 BP Diastolic BP Location Tested BP Systolic BP Type 70 L arm 104 sitting Fetus Heart Rate Present Fetus Movement A Yes Comments Flowsheet Date 06/27/2025 Solorzano Score Blood Edema Fundus Height Fundus Units Glucose Ketones Leukocytes Nitrite Labor Signs Protein Cervic Dilation Cervic Effacement Cervic Station Type Weight in lbs Pre/Post Dialysis Refused 147.191885235978 BP Diastolic BP Location Tested BP Systolic [...]
--- OUTSIDE RECORDS SUMMARY | 2025-07-01 06:19 | XMS_ITS | Continuity of Care Document ---
Author Organization [facility] Address [address] [place] [address] Assessment No assessment recorded. Plan of Treatment [...] + non-str ess test 2024 025 [email or web address] [place] [facility] [address], [address], [place], [address], 06/20/2025 15:43:37 Medication Orders None recorde d. Patient TargetsNo [...] Resul ting Lab: [facility] [address] [facility] [address] Tel: CULTU RE ----- ----- ----- --- No growt h in 1 day (dete ction level of 10,00 0 colon ies / ml.) Not Available [facility] (Lab) [address] [facility], [place], [address], 03/19/2025 07:23:20 03/17/2003/17/2025 CBC W/DIF F WBC 5.0 10'3/ uL 3.5-10 .5 Not Available [facility] (Lab) [address] [facility], [place], [address], 03/21/2025 14:27:06 03/17/20 25 03/17/2025 CBC W/DIF F RBC 3.57 10'6/ uL (based on docume nted legal sex) 3.80-5 .20 low Not Available [facility] (Lab) [address] [facility], [place], [address], 03/21/2025 14:27:06 03/17/20 25 03/17/2025 CBC W/DIF F HGB 10.5 g/dL (based on docume nted legal sex) 11.6-1 5.4 low Not Available [facility] (Lab) [address] [place], [address], 03/21/2025 14:27:06 03/17/20 25 03/17/2025 CBC W/DIF F HCT 30.2 % (based on docume nted legal sex) 34.0-4 5.0 low Not Available [facility] (Lab) [address] [facility], [place], [address], 03/21/2025 14:27:06 03/17/20 25 03/17/2025 CBC W/DIF F MCV 84.6 fL 80.0-9 9.0 Not Available [facility] (Lab) [address], [place], [address], 03/21/2025 14:27:06 03/17/20 25 03/17/2025 CBC W/DIF F MCH 29.4 pg 27.0-3 4.0 Not Available [facility] (Lab) [address], [place], [address], 03/21/2025 14:27:06 03/17/20 25 03/17/2025 CBC W/DIF F MCHC 34.8 g/dL 32.0-3 5.5 Not Available [facility] (Lab) [address], [place], [address], 03/21/2025 14:27:06 03/17/20 25 03/17/2025 CBC W/DIF F RDW 13.3 % 11.0-1 5.0 Not Available [facility] (Lab) [address], [place], [address], 03/21/2025 14:27:06 03/17/20 25 03/17/2025 CBC W/DIF F plt 235 10'3/ uL 150-40 0 Not Available [facility] (Lab) [address], [place], [address], 03/21/2025 14:27:06 03/17/20 25 03/17/2025 CBC W/DIF F MPV 10.4 fL 8.8-12 .1 Not Available [facility] (Lab) [address] [facility], [place], [address], 03/21/2025 14:27:06 03/17/20 25 03/17/2025 CBC W/DIF F NRBC's 0.0 % 0.0 Not Available [facility] (Lab) [address] [place], [address], 03/21/2025 14:27:06 03/17/20 25 03/17/2025 CBC W/DIF F absolute NRBCs 0.0 10'3/ uL no refere nce range establ ished Not Available [facility] (Lab) [address] [facility], [place], [address], 03/21/2025 14:27:06 03/17/20 25 03/17/2025 CBC W/DIF F neutrophils 72.4 % 34.0-7 3.0 Not Available [facility] (Lab) [address] [facility], [place], [address], 03/21/2025 14:27:06 03/17/20 25 03/17/2025 CBC W/DIF F lymphocytes 14.4 % 15.0-5 0.0 low Not Available [facility] (Lab) [address] [facility], [place], [address], 03/21/2025 14:27:06 03/17/20 25 03/17/2025 CBC W/DIF F monocytes 6.6 % 1.0-15 .0 Not Available [facility] (Lab) [address] [facility], [place], [address], 03/21/2025 14:27:06 03/17/20 25 03/17/2025 CBC W/DIF F eosinophils 5.2 % 0.0-8. 0 Not Available [facility] (Lab) [address] [place], [address], 03/21/2025 14:27:06 03/17/20 25 03/17/2025 CBC W/DIF F basophils 0.4 % 0.0-2. 0 Not Available [facility] (Lab) [address] [place], [address], 03/21/2025 14:27:06 03/17/20 25 03/17/2025 CBC W/DIF [...] [facility] (Lab) [address] [facility], [place], [address], 03/21/2025 14:27:06 03/17/20 25 03/17/2025 CBC W/DIF F absolute neutrophils 3.6 10'3/ uL 1.5-8. 0 Not Available [facility] (Lab) [address] [facility], [place], [address], 03/21/2025 14:27:06 03/17/20 25 03/17/2025 CBC W/DIF F absolute lymphocytes 0.7 10'3/ uL 1.0-4. 0 low Not Available [facility] (Lab) [address] [facility], [place], [address], 03/21/2025 14:27:06 03/17/20 25 03/17/2025 CBC W/DIF F absolute monocytes 0.3 10'3/ uL 0.2-1. 0 Not Available [facility] (Lab) [address] [facility], [place], [address], 03/21/2025 14:27:06 03/17/20 25 03/17/2025 CBC W/DIF F absolute eosinophils 0.3 10'3/ uL 0.0-0. 6 Not Available [facility] (Lab) [address] [facility], [place], [address], 03/21/2025 14:27:06 03/17/20 25 03/17/2025 CBC W/DIF F absolute basophils 0.0 10'3/ uL 0.0-0. 3 Not Available [facility] (Lab) [address] [facility], [place], [address], 03/21/2025 14:27:06 03/17/20 25 03/17/2025 CBC W/DIF [...] [facility] (Lab) [address], [place], [address], 03/21/2025 14:27:06 03/17/20 25 03/17/2025 HIV 1/2 ANTIG EN/AN TIBOD Y, REFLE X CONFI RMATI ON HIV antigen/anti body Nonrea ctive nonrea ctive HIV-1 antig en and HIV-1 /HIV- 2 antib odies were not detec jluis. No labor atory evide nce of HIV infec tion. Not Available [facility] (Lab) [address], [place], [address], 03/21/2025 14:27:06 03/17/2003/17/2025 HEPAT ITIS B SURFA [...] [facility] [address], [place], [address], 03/21/2025 14:27:07 03/17/20 25 03/17/2025 HEPAT ITIS C ANTIB ELOISE SCREE N, REFLE X TO CONFI RMATI ON hepatitis C antibody Non-re active non-re active Antib odies to HCV Not Detec jluis, does not exclu de the possi bilit y of expos ure to HCV. Not Available [facility] (Lab) [address], [place], [address], 03/21/2025 14:27:07 03/17/20 25 03/17/2025 RUBEL LA IGG ANTIB ELOISE, QUANT rubella antibodies, IgG Reacti ve reacti ve Not Available [facility] (Lab) [address] [facility], [place], [address], 03/21/2025 14:27:08 03/17/20 25 03/17/2025 RUBEL LA IGG ANTIB ELOISE, QUANT rubella antibodies, IgG quant 14.2 IU/mL >=10 Non-r eacti ve (Non- Immun e) <10 IU/mL React reyna (Immu ne) > or = 10 IU/mL Not Available [facility] (Lab) [address] [facility], [place], [address], 03/21/2025 14:27:08 03/17/20 25 03/17/2025 TYPE/ RH/SC REEN ABO/Rh type B POS Not Available [facility] (Lab) [address] [facility], [place], [address], 03/21/2025 14:27:08 03/17/20 25 03/17/2025 TYPE/ RH/SC REEN antibody screen NEG Not Available [facility] (Lab) [address] [facility], [place], [address], 03/21/2025 14:27:08 03/17/20 25 03/17/2025 TYPE/ RH/SC REEN exp date 2024 23:59 Not Available [facility] (Lab) [address] [facility], [place], [address], 03/21/2025 14:27:08 03/17/20 25 03/17/2025 HEMOG LOBIN [...] [facility] (Lab) [address] [facility], [place], [address], 03/21/2025 14:27:09 03/17/20 25 03/17/2025 RPR SCREE [...] [facility] (Lab) [address] [facility], [place], [address], 03/21/2025 14:27:09 03/17/20 25 03/17/2025 RPR SCREE N, REFLE X TITER /CONF IRMAT ION RPR titer 1:8 . none high Not Available [facility] (Lab) [address] [facility], [place], [address], 03/21/2025 14:27:09 03/17/20 25 03/17/2025 SYPHI LIS [...] and resul ts, see: https ://ganesh sena [facility] ([place]) / it-mm files /Syph ilis_ Serol ogy_A lgori thm.p df ----- ----- ----- ----A DDITI ONAL INFOR MATIO N---- ----- ----- ----- This test is inten ded to be used as a confi rmato ry test on sampl es that have been teste d by [facility] syphi lis test. Test Perfo rmed by: [facility] [place] [address], [place] [address] Lab Direc tor: Jay Manzano nn Ph.D. ; CLIA# [id number] Not Available [facility] (Lab) [address] [facility], [place], [address], 03/21/2025 14:27:10 03/29/20 25 03/29/2025 CT/GC AND TRICH OMONA S VAGIN SILVA (RRNA ), URINE chlamydia trachomatis, PCR Negati ve negati ve Not Available [facility] (Lab) [address] [facility], [place], [address], 03/30/2025 14:21:33 03/29/20 25 03/29/2025 CT/GC AND TRICH OMONA S VAGIN SILVA (RRNA ), URINE neisseria gonorrhoeae, PCR Negati ve negati ve Not Available [facility] (Lab) [address] [facility], [place], [address], 03/30/2025 14:21:33 03/29/20 25 03/29/2025 CT/GC AND TRICH OMONA S VAGIN SILVA (RRNA ), URINE trichomonas vaginalis ribosomal RNA (rrna) Negati ve negati ve Not Available [facility] (Lab) [address] [place], [address], 03/30/2025 14:21:33 04/20/20 25 04/20/2025 HEMAT OCRIT (HCT) HCT 29.1 % (based on docume nted legal sex) 34.0-4 5.0 low Not Available [facility] (Lab) [address] [facility], [place], [address], 04/23/2025 15:25:44 04/20/20 25 04/20/2025 HEMOG LOBIN (HGB) HGB 9.3 g/dL (based on docume nted legal sex) 11.6-1 5.4 low Not Available [facility] (Lab) [address] [facility], [place], [address], 04/23/2025 15:25:45 04/20/20 25 04/20/2025 HIV 1/2 ANTIG EN/AN TIBOD Y, REFLE X CONFI RMATI ON HIV antigen/anti body Nonrea ctive nonrea ctive HIV-1 antig en and HIV-1 /HIV- 2 antib odies were not detec jluis. No labor atory evide nce of HIV infec tion. Not Available [facility] (Lab) [address] [facility], [place], [address], 04/23/2025 15:25:45 04/20/20 25 04/20/2025 RPR SCREE [...] [facility] (Lab) [address] [facility], [place], [address], 04/23/2025 15:25:46 04/20/20 25 04/20/2025 RPR SCREE N, REFLE X TITER /CONF IRMAT ION RPR titer 1:8 . none high Not Available [facility] (Lab) [address] [facility], [place], [address], 04/23/2025 15:25:46 04/20/20 25 04/20/2025 SYPHI LIS [...] of the syphi lis rever se [facility] and resul ts, see: https ://ganesh sena [facility]) / it-mm files /Syph ilis_ Serol ogy_A lgori thm.p df ----- ----- ----- ----A DDITI ONAL INFOR MATNOHEMY N---- ----- ----- ----- This test is inten ded to be used as a confi rmato ry test on sampl es that have been teste d by [facility] syphi lis test. Test Perfo rmed by: [facility] [place] [address] [place] [address] Lab Direc tor: Jay Manzano nn Ph.D. ; CLIA# [id number] Not Available [facility] (Lab) [address] [facility], [place], [address], 04/23/2025 15:25:46 05/27/20 25 05/27/2025 PROTE IN/CR EATIN INE RATIO , URINE creatinine, urine 123.0 mg/dL R-No refer ence range estab lishe d for this assay Not Available [facility] (Lab) [address] [facility], [place], [address], 05/28/2025 10:30:45 05/27/20 25 05/27/2025 PROTE IN/CR EATIN INE RATIO , URINE protein, urine 22 mg/dL R-No refer ence range estab lishe d for this assay Not Available [facility] (Lab) [address] [facility], [place], [address], 05/28/2025 10:30:45 05/27/20 25 05/27/2025 PROTE IN/CR [...] fican t prote inuri a. Not Available [facility] (Lab) [address] [facility], [place], [address], 05/28/2025 10:30:45 06/06/20 25 06/06/2025 CT/GC AND TRICH OMONA S VAGIN SILVA (RRNA ), URINE chlamydia trachomatis, PCR Negati ve negati ve Not Available [facility] (Lab) [address] [facility], [place], [address], 06/09/2025 16:13:50 06/06/20 25 06/06/2025 CT/GC AND TRICH OMONA S VAGIN SILVA (RRNA ), URINE neisseria gonorrhoeae, PCR Negati ve negati ve Not Available [facility] (Lab) [address] [facility], [place], [address], 06/09/2025 16:13:50 06/06/20 25 06/06/2025 CT/GC AND TRICH OMONA S VAGIN SILVA (RRNA ), URINE trichomonas vaginalis ribosomal RNA (rrna) Negati ve negati ve Not Available [facility] (Lab) [address] [facility], [place], [address], 06/09/2025 16:13:50 06/06/20 25 06/06/2025 CULTU RE: [...] Resul ting Lab: [facility] [address] [facility] [address] Tel: CULTU RE ----- ----- ----- --- No Group B strep isola jluis at 2 days (shelia ctive broth enhan cemen t) Not Available [facility] (Lab) [address] [facility], [place], [address], 06/09/2025 16:13:50 03/17/20 25 03/17/2025 US, obste tric, 2nd or 3rd trime ster No observ ation record ed. [email or web address] [address], [place], [address], 03/17/2025 15:45:06 03/17/20 25 03/17/2025 US, obste tric, 2nd or 3rd trime ster No observ ation record ed. [email or web address] [place] [address], [place], [address], 03/17/2025 12:51:02 03/17/20 25 03/17/2025 US, obste tric, 2nd or 3rd trime ster No observ ation record ed. [email or web address] [facility] [address], [place], [address], 04/07/2025 21:57:11 03/17/20 25 03/17/2025 US, obste tric, 2nd or 3rd trime ster No observ ation record ed. [email or web address] [facility] [address], [place], [address], 03/17/2025 23:04:51 03/17/20 25 03/17/2025 US, obste tric, 2nd or 3rd trime ster No observ ation record ed. [email or web address] [facility] [address], [place], [address], 03/17/2025 15:45:46 03/17/20 25 03/17/2025 US, obste tric, 2nd or 3rd trime ster No observ ation record ed. [facility] [address], [place], [address], 03/18/2025 17:16:02 05/18/2005/18/2025 US, obste tric, follo w-up No observ ation record ed. [facility] [address], [place], [address], 05/18/2025 18:23:17 05/18/2005/18/2025 US, obste tric, follo w-up No observ ation record ed. [email or web address] [facility] [address], [place], [address], 05/20/2025 13:20:22 05/25/2005/25/2025 US, obste tric, bioph ysica l profi le + non-s tress test No observ ation record ed. [facility] [address], [place], [address], 05/25/2025 17:34:34 05/25/20 25 05/25/2025 US, obste tric, follo w-up No observ ation record ed. [email or web address] [facility] [address], [place], [address], 05/26/2025 14:44:53 05/25/2005/25/2025 non-s tress test No observ ation record ed. [email or web address] [place] [address], [place], [address], 05/25/2025 18:39:52 05/25/20 non-s tress test No observ ation record ed. [email or web address] [place] [address], [place], [address], 05/25/2025 17:32:07 05/30/2005/30/2025 US, obste tric, bioph ysica l profi le + non-s tress test No observ ation record ed. [email or web address] [place] [address], [place], [address], 05/30/2025 12:42:17 05/30/2005/30/2025 US, obste tric, bioph ysica l profi le + non-s tress test No observ ation record ed. [email or web address] [address] [address], [place], [address], 05/30/2025 17:35:43 05/30/2005/30/2025 non-s tress test No observ ation record ed. [email or web address] [place] [address], [place], [address], 05/30/2025 13:00:42 05/30/20 non-s tress test No observ ation record ed. [email or web address] [place] [address], [place], [address], 05/30/2025 13:02:59 06/06/2006/06/2025 US, obste tric, bioph ysica l profi le + non-s tress test No observ ation record ed. [email or web address] [place] [address], [place], [address], 06/06/2025 14:28:11 06/06/2006/06/2025 US, obste tric, bioph ysica l profi le + non-s tress test No observ ation record ed. [email or web address] [facility] [address], [place], [address], 06/06/2025 15:10:23 06/07/2006/07/2025 non-s tress test No observ ation record ed. [email or web address] [place] [address], [place], [address], 2025 20:27:42 06/07/20 non-s tress test No observ ation record ed. [email or web address] Not Available 2024 15:33:58 06/13/2006/13/2025 US, obste tric, follo w-up No observ ation record ed. [email or web address] [facility] [address], [place], [address], 06/14/2025 10:34:08 06/13/2006/13/2025 non-s tress test No observ ation record ed. PATRICIA [place] [address], [place], [address], 06/19/2025 18:04:34 06/13/20 non-s tress test No observ ation record ed. [email or web address] [place] [address], [place], [address], 06/13/2025 18:04:44 06/13/20 25 06/14/2025 US, obste tric, follo w-up No observ ation record ed. [email or web address] [place] [address], [place], [address], 06/14/2025 13:38:03 06/13/20 25 06/14/2025 US, lucretia dimas, bioph ysica l profi le + non-s tress test No observ ation record ed. [email or web address] [place] [address], [place], [address], 06/14/2025 13:38:17 06/15/20 25 2025 non-s tress test No observ ation record ed. [facility] [address], [place], [address], 06/17/2025 09:42:27 06/20/2006/20/2025 US, lucretia dimas, bioph ysica l profi le + non-s tress test No observ ation record ed. [email or web address] [place] [address], [place], [address], 06/20/2025 13:28:54 06/20/20 25 06/20/2025 US, lucretia dimas, follo w-up No observ ation record ed. [facility] [address], [place], [address], 06/20/2025 16:32:26 06/20/20 25 06/20/2025 non-s tress test No observ ation record ed. [email or web address] [place] [address], [place], [address], 06/20/2025 18:00:22 06/20/20 non-s tress test No observ ation record ed. [email or web address] [place] [address], [place], [address], 06/20/2025 17:57:42 06/27/20 25 06/27/2025 US, lucretia dimas, bioph ysica l profi le No observ ation record ed. [email or web address] [facility] [address], [place], [address], 06/28/2025 11:16:29 06/27/2006/27/2025 US, obste tric, bioph ysica l profi le + non-s tress test No observ ation record ed. [facility] [address], [place], [address], 06/27/2025 18:49:37 06/27/2006/27/2025 non-s tress test No observ ation record ed. [facility] [address], [place], [address], 06/27/2025 18:50:27 06/27/20 non-s tress test No observ ation record ed. [email or web address] [place] [address], [place], [address], 06/27/2025 12:29:10 Result Notes None recorded. Problems Name Problem SNOMED Code Status Onset Date Resolution Date Notes Provider Name and Address Organization Details Recorded Time Anemia 586258732 Completed Trino serrano, [facility] 4 13:00:34 Pre-ecla mpsia 970282607 Completed 37w Delivery , 2x/wk antenata l testing Trino Moulton [facility] 4 13:00:34 Group B Streptoc occus carrier 0313562688 103 Completed AMP in labor Trino serrano [facility] 4 13:00:33 Pregnanc y 51388902 Completed 202210/27/2023 Jazz serrano [facility] 5 12:31:25 Syphilis 76314805 Completed 2022 no s/s, +fta abs- tx schedule d 06/05,,0 2 Trino Moulton [facility], [facility] 4 13:00:34 Infectio n by Analia hidalgo [id number] Completed 2022 2/2 positive - tinidazo le tx 2/5 - RONEN in 4wks Trino Moulton [facility] 4 13:00:34 Gonorrhe a 58349580 Completed 2022 PA sent 08/20 [facility] 4 13:00:34 Pregnanc y 69064009 Active 2024 Jazz Yonis [facility], [facility] 5 12:31:25 Past pregnanc y history of pre-ecla mpsia 8515964105 32923 Active 2024 recommen ded ASA previous delivery PTL 36w6d 10/08/23 EDC 10/30/23 antenata l testing Juana Timmy [facility] 5 11:26:48 History of syphilis 4160891157 812660 Active 2024 treated in previous pregnanc y titers 05/2023 1:32 decrease d to 1:8 03/17 Juana serrano [facility] 5 11:51:07 History of chlamydi al infectio n 760092199 Active 2024 Isidro Le MD [address], [place], [address], [place] [facility] 5 12:53:43 Iron deficien cy anemia 93522737 Active 2024 hgg decrease d 03-17 to 9-3 Iron infusion order faxed 05/04 _ pending insuranc e) Juana serrano, [facility] 11:03:51 Finding of arrangem ent of fetus 56675593 Active 2024 Transver se Isidro Le MD [address], [place], [address], [facility] 17:33:30 Problem Notes None recorded. Medical [...] Address Organization Details Last Updated DateTime 06/20/2025 21714.95296 g 104/64 mm[Hg] Jazz Yonis [facility] 06/20/2025 12:00:20 Date Recorded Body height Body mass index (BMI) Body weight Systolic And Diastolic Provider Name and Address Organization Details Last Updated DateTime 06/20/2025 165.1 cm 24 kg/m2 02442.3 g 104/64 mm[Hg] Christine Lamb [facility] 06/20/2025 17:55:46 Social History Question Answer Notes LastModified by Organizat ion Details LastModified Time Tobacco Smoking Status Never Smoker [facility] 03/07/2023 14:21:17 Are You Blind Or Do You Have Difficulty Seeing? No [email or web address] Information n ot available 10/01/2023 What Is Your Level Of Caffeine Consumption? Occasional [email or web address] Information not available 10/01/2023 How Much Tobacco Do You Chew? None [email or web address] Information not available 10/01/2023 In The 14 Days Before Symptom Onset, Have You Had Close Contact With A Laboratory-confirm ed COVID-19 While That Case Was Ill? No Information n ot available 10/01/2023 In The 14 Days Before Symptom Onset, Have You Had Close Contact With A Person Who Is Under Investigation For COVID-19 While That Person Was Ill? No [email or web address] Information not available 10/01/2023 Have You Been To An Area Known To Be High Risk For COVID-19? No [email or web address] Information not available 10/01/2023 Are You Deaf Or Do You Have Serious Difficulty Hearing? No [email or web address] Information not available 10/01/2023 What Type Of Diet Are You Following? REGULAR [email or web address] Information n ot available 10/01/2023 What Is The Highest Grade Or Level Of School You Have Completed Or The Highest Degree You Have Received? CI07471-8 [email or web address] Information not available 10/01/2023 Are There Any Guns Present In Your Home? No [email or web address] Information not available 10/01/2023 Do You Use Protection During Sex? Usually [email or web address] Information not available 10/01/2023 Do You Use Your Seat Belt Or Car Seat Routinely? Yes [email or web address] Information not available 10/01/2023 Do You Have Smoke And Carbon Monoxide Detectors In Your Home? No [email or web address] Information not available 10/01/2023 How Much Tobacco Do You Smoke? No [email or web address] Information not available 10/01/2023 Do You Use Sunscreen Routinely? No [email or web address] Information not available 10/01/2023 Have You Used IV Drugs? No [email or web address] Information not available 10/01/2023 Do You Have Difficulty Walking Or Climbing Stairs? No [email or web address] Information not available 10/01/2023 Sex: Unknown Functional Status Question Answer Note LastModified by Organizat ion Details LastModified Time Do you use any illicit or recreational drugs? No [email or web address] Information not available 10/01/2023 What is your level of alcohol consumption? None [email or web address] Information not available 10/01/2023 Are you able to walk independently without assistance or assistive devices? YESWOREST [email or web address] Information not available 10/01/2023 Are you able to care for yourself independently? Yes [email or web address] Information not available 10/01/2023 Do you have difficulty dressing, bathing, grooming, or toileting? No Information not available 10/01/2023 What is your exercise level? Moderate [email or web address] Information not available 10/01/2023 Mental Status Question Answer Note LastModified by Organization D etails LastModified Time Do you feel stressed (tense, restless, nervous, or anxious, or unable to sleep at night)? [id number] [email or web address] Information not available 10/01/2023 Family History Relationship [...] ICD10 Code Diagnosis IMO Codes Diagnosis Note [id number] Isidro Le MD [facility] [address] [address] 05/25/2025 15:01:48 05/25/2025 15:34:08 care: obstetric risk [id number] O09.293 O09.299 Z3A.33 9997085 [id number] MD Clay Aragon [address],[place] [address] 05/25/2025 15:07:02 05/25/2025 17:32:49 Past history of pre-eclampsia [id number] 27003 Z87.59 500736 [id number] MD Clay Aragon [address],[place] [address] 05/25/2025 15:07:21 05/25/2025 17:10:12 care status 947494271 Z34.83 [id number] [id number] [facility] [address],[place] [address] 05/27/2025 09:25:56 05/27/2025 09:44:43 Backache 321215705 M54.9 [id number] Acute headache 968018243 R51.9 [id number] call this afternoon if no relief will try imitrex [id number] Isidro Le MD [facility] [address],[place] [address] 05/30/2025 11:35:55 05/30/2025 12:10:04 care: obstetric risk 671322809 O09.293 Z3A.34 7575562 [id number] MD Clay Aragon [address],[place] [address] 05/30/2025 11:36:32 05/30/2025 13:02:53 Pre-eclampsia 382207701 O14.90 608119 [id number] MD Clay Aragon [address],[place] [address] 05/30/2025 11:36:55 05/30/2025 13:17:39 care status 350175370 Z34.83 07343608 [id number] MD Clay Aragon [address],[place] [address] 06/06/2025 13:30:49 06/06/2025 14:28:09 care: obstetric risk 005326662 O09.293 Z3A.35 5414851 [id number] MD Clay Aragon [address],[place] [address] 06/06/2025 13:31:14 2025 10:42:54 Past history of pre-eclampsia 7217290108 34603 Z87.59 915593 [id number] MD Clay Aragon [address],[place] [address] 06/06/2025 13:31:30 06/06/2025 15:34:03 care status 226562919 Z34.83 74056331 [id number] MD Clay Aragon [address],[place] [address] 06/13/2025 15:39:53 06/14/2025 09:09:52 care: obstetric risk 800903159 O09.293 Z3A.36 5987431 [id number] BLACK YUN MD [facility] [address],[place] [address] 06/13/2025 15:40:02 06/14/2025 09:09:28 Past history of pre-eclampsia 3993777557 68243 Z87.59 301217 [id number] MD Clay Aragon [address],[place] [address] 06/13/2025 15:40:14 06/13/2025 17:38:16 care status 111830879 Z34.83 10497586 [id number] MD Clay Aragon [address],[place] [address] 06/20/2025 10:15:50 06/20/2025 11:10:24 care: obstetric risk 993814193 O09.293 Z3A.37 3536042 [id number] MD Clay Aragon [address],[place] [address] 06/20/2025 10:16:00 06/21/2025 08:20:28 Past history of pre-eclampsia 4973380378 60783 Z87.59 873934 [id number] Isidro Le MD [facility] [address] [address] 06/20/2025 10:16:11 06/20/2025 12:23:37 care status 622470626 Z34.83 [id number] Health Concerns Section Related Observation LastModified by Organization Detai ls LastModified Time None Recorded Concern Status LastModified by Organization Details LastModified Time None Recorded Payers Encounter Date Sequence Insurance Name Policy Number Policy Vital Covered Member ID Vital Member ID Guarantor Name 06/20/2025 1 [facility] (MEDICAID HMO) [id number] Gisela Bates [id number] Gisela Bates Notes Date Note Type Note Provider Name and Address Organization Details Recorded Time 06/20/2025 text/html Generic HPI TemplateReported by Patient Isidro Le MD [address], [place], [address], [facility] 06/20/2025 12:18:00 OBGyn Episode Ob Episode Information Episode Created Date Number of Fetuses Patient Bloodtype Patient rh Status Prepregnancy Weight lbs Domestic Partner Domestic Partner Phone Father Name Ocular Care Technologist Status 03/17/20 25 1 B Positive OPEN Fetus Data First Name Last Name Admitted to NICU Weight (g) Sex Living Outcome Pediatric Complications Fetus ID Race Codes Race Delivery Type [id number] Problems Problem Notes + RPR tx spoke [...] , fax all labs to health dept [phone] . 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,[employer] 03/31 pt denies sx's JGBilateral double renal artery Problem Name Start Date End Date Resolution Snomed Code Not e History of syphilis 03/17/2025 [id number] treated in previous pregnancytiters 05/2023 1:32 decreased to 1:8 03/17 Iron deficiency anemia 05/04/2025 [id number] hgg decreased to 9- Iron infusion order faxed 05/04 _ pending insurance) History of chlamydial infection 03/17/2025 [id number] Past history of pre-eclampsia 03/17/2025 [id number] recommended ASAprevious delivery PTL 36w6d 10/08/23 EDC 10/30/23 testing Finding of arrangement of fetus 06/13/2025 [id number] Transverse Jerome Calculation Initial Jerome Date Initial [...] Weight in lbs Pre/Post Dialysis Refused Weight 131.873919392573 BP Diastolic BP Location Tested BP Systolic [...] Weight in lbs Pre/Post Dialysis Refused Weight 131.600249467447 BP Diastolic BP Location Tested BP Systolic [...] Type Weight in lbs Pre/Post Dialysis Refused 133.187396071493 BP Diastolic BP Location Tested BP Systolic [...] Type Weight in lbs Pre/Post Dialysis Refused 135.55430701782 BP Diastolic BP Location Tested BP Systolic [...] Type Weight in lbs Pre/Post Dialysis Refused 135.42898022554 BP Diastolic BP Location Tested BP Systolic [...] Weight in lbs Pre/Post Dialysis Refused Weight 139.06228971207 BP Diastolic BP Location Tested BP Systolic BP Type 76 L arm 112 sitting Fetus Heart Rate Present Fetus Movement A Yes Comments Flowsheet Date 05/25/2025 Solorzano Score Blood Edema Fundus Height Fundus Units Glucose Ketones Leukocytes Nitrite Labor Signs Protein Cervic Dilation Cervic Effacement Cervic Station Type Weight in lbs Pre/Post Dialysis Refused Weight 149.30998026170 BP Diastolic BP Location Tested BP Systolic [...] Weight in lbs Pre/Post Dialysis Refused Weight 138.680403238792 BP Diastolic BP Location Tested BP Systolic BP Type 78 L arm 120 sitting Fetus Heart Rate Present A 139 Fetus Movement A Yes Comments was at [place] yesterday wi th ruiz and back pain [...] Type Weight in lbs Pre/Post Dialysis Refused 139.457419789347 BP Diastolic BP Location Tested BP Systolic BP Type 74 L arm 119 sitting Fetus Heart Rate Present Fetus Movement A Yes Comments Flowsheet Date 05/30/2025 Solorzano Score Blood Edema Fundus Height Fundus Units Glucose Ketones Leukocytes Nitrite Labor Signs Protein Cervic Dilation Cervic Effacement Cervic Station Type Weight in lbs Pre/Post Dialysis Refused 139.737322240361 BP Diastolic BP Location Tested BP Systolic [...] Type Weight in lbs Pre/Post Dialysis Refused 142.253665998807 BP Diastolic BP Location Tested BP Systolic [...] Type Weight in lbs Pre/Post Dialysis Refused 144.132341646043 BP Diastolic BP Location Tested BP Systolic BP Type 65 L arm 98 sitting Fetus Heart Rate Present Fetus Movement A Yes Comments Flowsheet Date 06/13/2025 Solorzano Score Blood Edema Fundus Height Fundus Units Glucose Ketones Leukocytes Nitrite Labor Signs Protein Cervic Dilation Cervic Effacement Cervic Station Type Weight in lbs Pre/Post Dialysis Refused 144.537342359129 BP Diastolic BP Location Tested BP Systolic [...] Weight in lbs Pre/Post Dialysis Refused Weight 144.41990454700 BP Diastolic BP Location Tested BP Systolic BP Type 64 L arm 104 sitting Fetus Heart Rate Present Fetus Movement A Yes Comments Flowsheet Date 06/20/2025 Solorzano Score Blood Edema Fundus Height Fundus Units Glucose Ketones Leukocytes Nitrite Labor Signs Protein Cervic Dilation Cervic Effacement Cervic Station Type Weight in lbs Pre/Post Dialysis Refused 144.210883466821 BP Diastolic BP Location Tested BP Systolic [...] Type Weight in lbs Pre/Post Dialysis Refused 147.905847336371 BP Diastolic BP Location Tested BP Systolic BP Type 70 L arm 104 sitting Fetus Heart Rate Present Fetus Movement A Yes Comments Flowsheet Date 06/27/2025 Solorzano Score Blood Edema Fundus Height Fundus Units Glucose Ketones Leukocytes Nitrite Labor Signs Protein Cervic Dilation Cervic Effacement Cervic Station Type Weight in lbs Pre/Post Dialysis Refused 147.295560222951 BP Diastolic BP Location Tested BP Systolic [...]
--- OUTSIDE RECORDS SUMMARY | 2025-07-01 06:19 | XMS_ITS | Continuity of Care Document ---
Author Organization [facility] Address [address] [place] [address] Assessment Encounter Date Assessment Date Assessment LastModified by Organization Details LastModified Time 06/13/2025 06/13/2025 Patient is ___weeks . Discussed plan. [email or web address] Not available 06/13/2025 17:25:31 Plan of Treatment Reminders Order Date Submit [...] Resul penelopeg Lab: [facility] [address] [facility] [address] Tel: CULTU RE ----- ----- ----- --- No growt h in 1 day (dete ction level of 10,00 0 colon ies / ml.) Not Available [facility] (Lab) [address], [place], [address], 03/19/2025 07:23:20 03/17/20 25 03/17/2025 CBC W/DIF F WBC 5.0 10'3/ uL 3.5-10 .5 Not Available [facility] (Lab) [address] [facility], [place], [address], 03/21/2025 14:27:06 03/17/20 25 03/17/2025 CBC W/DIF F RBC 3.57 10'6/ uL (based on docume nted legal sex) 3.80-5 .20 low Not Available [facility] (Lab) [address] [facility] [address], [place], [address], 03/21/2025 14:27:06 03/17/20 25 03/17/2025 CBC W/DIF F HGB 10.5 g/dL (based on docume nted legal sex) 11.6-1 5.4 low Not Available [facility] (Lab) [address], [place], [address], 03/21/2025 14:27:06 03/17/20 25 03/17/2025 CBC W/DIF F HCT 30.2 % (based on docume nted legal sex) 34.0-4 5.0 low Not Available [facility] (Lab) [address], [place], [address], 03/21/2025 14:27:06 03/17/20 25 03/17/2025 CBC W/DIF F MCV 84.6 fL 80.0-9 9.0 Not Available [facility] (Lab) [address] [facility] [address], [place], [address], 03/21/2025 14:27:06 03/17/20 25 03/17/2025 CBC W/DIF F MCH 29.4 pg 27.0-3 4.0 Not Available [facility] (Lab) [address], [place], [address], 03/21/2025 14:27:06 03/17/20 25 03/17/2025 CBC W/DIF F MCHC 34.8 g/dL 32.0-3 5.5 Not Available [facility] (Lab) [address], [place], [address], 03/21/2025 14:27:06 03/17/20 25 03/17/2025 CBC W/DIF F RDW 13.3 % 11.0-1 5.0 Not Available [facility] (Lab) [address], [place], [address], 03/21/2025 14:27:06 03/17/20 25 03/17/2025 CBC W/DIF F plt 235 10'3/ uL 150-40 0 Not Available [facility] (Lab) [address], [place], [address], 03/21/2025 14:27:06 03/17/20 25 03/17/2025 CBC W/DIF F MPV 10.4 fL 8.8-12 .1 Not Available [facility] (Lab) [address], [place], [address], 03/21/2025 14:27:06 03/17/20 25 03/17/2025 CBC W/DIF F NRBC's 0.0 % 0.0 Not Available [facility] (Lab) [address], [place], [address], 03/21/2025 14:27:06 03/17/20 25 03/17/2025 CBC W/DIF F absolute NRBCs 0.0 10'3/ uL no refere nce range establ ished Not Available [facility] (Lab) [address], [place], [address], 03/21/2025 14:27:06 03/17/20 25 03/17/2025 CBC W/DIF F neutrophils 72.4 % 34.0-7 3.0 Not Available [facility] (Lab) [address], [place], [address], 03/21/2025 14:27:06 03/17/20 25 03/17/2025 CBC W/DIF F lymphocytes 14.4 % 15.0-5 0.0 low Not Available [facility] (Lab) [address], [place], [address], 03/21/2025 14:27:06 03/17/20 25 03/17/2025 CBC W/DIF F monocytes 6.6 % 1.0-15 .0 Not Available [facility] (Lab) [address], [place], [address], 03/21/2025 14:27:06 03/17/20 25 03/17/2025 CBC W/DIF F eosinophils 5.2 % 0.0-8. 0 Not Available [facility] (Lab) [address], [place], [address], 03/21/2025 14:27:06 03/17/20 25 03/17/2025 CBC W/DIF F basophils 0.4 % 0.0-2. 0 Not Available [facility] (Lab) [address], [place], [address], 03/21/2025 14:27:06 03/17/2003/17/2025 CBC W/DIF F immature granulocytes 1.0 % no define d refere nce range Immat ure Granu locyt es (IG) repre sents autom ated enume ratio n of Metam yeloc ytes, Myelo cytes and Promy elocy freda when IG is < 5%. Blast s are not inclu ded in IG and repor jluis separ ately if prese nt. Not Available [facility] (Lab) [address], [place], [address], 03/21/2025 14:27:06 03/17/20 25 03/17/2025 CBC W/DIF F absolute neutrophils 3.6 10'3/ uL 1.5-8. 0 Not Available [facility] (Lab) [address], [place], [address], 03/21/2025 14:27:06 03/17/20 25 03/17/2025 CBC W/DIF F absolute lymphocytes 0.7 10'3/ uL 1.0-4. 0 low Not Available [facility] (Lab) [address], [place], [address], 03/21/2025 14:27:06 03/17/20 25 03/17/2025 CBC W/DIF F absolute monocytes 0.3 10'3/ uL 0.2-1. 0 Not Available [facility] (Lab) [address], [place], [address], 03/21/2025 14:27:06 03/17/20 25 03/17/2025 CBC W/DIF F absolute eosinophils 0.3 10'3/ uL 0.0-0. 6 Not Available [facility] (Lab) [address], [place], [address], 03/21/2025 14:27:06 03/17/20 25 03/17/2025 CBC W/DIF F absolute basophils 0.0 10'3/ uL 0.0-0. 3 Not Available [facility] (Lab) [address], [place], [address], 03/21/2025 14:27:06 03/17/20 25 03/17/2025 CBC W/DIF [...] grover book. nm.or g/gen derx Not Available [facility] (Lab) [address], [place], [address], 03/21/2025 14:27:06 03/17/2003/17/2025 HIV 1/2 ANTIG EN/AN TIBOD Y, REFLE X CONFI RMATI ON HIV antigen/anti body Nonrea ctive nonrea ctive HIV-1 antig en and HIV-1 /HIV- 2 antib odies were not detec jluis. No labor atory evide nce of HIV infec tion. Not Available [facility] (Lab) [address], [place], [address], 03/21/2025 14:27:06 03/17/2003/17/2025 HEPAT ITIS B SURFA CE ANTIG EN hepatitis B surface antigen Non-re active non-re active This assay was perfo rmed using [facility] [employer] ratio n reage nts and test kits. Value s obtai gayla with other assay metho ds or kits canno t be used inter lee eably . Not Available [facility] (Lab) [address], [place], [address], 03/21/2025 14:27:07 03/17/20 25 03/17/2025 HEPAT ITIS C ANTIB ELOISE SCREE N, REFLE X TO CONFI RMATI ON hepatitis C antibody Non-re active non-re active Antib odies to HCV Not Detec jluis, does not exclu de the possi bilit y of expos ure to HCV. Not Available [facility] (Lab) [address], [place], [address], 03/21/2025 14:27:07 03/17/20 25 03/17/2025 RUBEL LA IGG ANTIB ELOISE, QUANT rubella antibodies, IgG Reacti ve reacti ve Not Available [facility] (Lab) [address], [place], [address], 03/21/2025 14:27:08 03/17/20 25 03/17/2025 RUBEL LA IGG ANTIB ELOISE, QUANT rubella antibodies, IgG quant 14.2 IU/mL >=10 Non-r eacti ve (Non- Immun e) <10 IU/mL React reyna (Immu ne) > or = 10 IU/mL Not Available [facility] (Lab) [address], [place], [address], 03/21/2025 14:27:08 03/17/20 25 03/17/2025 TYPE/ RH/SC REEN ABO/Rh type B POS Not Available [facility] (Lab) [address], [place], [address], 03/21/2025 14:27:08 03/17/20 25 03/17/2025 TYPE/ RH/SC REEN antibody screen NEG Not Available [facility] (Lab) [address], [place], [address], 03/21/2025 14:27:08 03/17/20 25 03/17/2025 TYPE/ RH/SC REEN exp date 2024 23:59 Not Available [facility] (Lab) [address], [place], [address], 03/21/2025 14:27:08 03/17/20 25 03/17/2025 HEMOG LOBIN [...] >8.0% Actio n sugge sted Not Available [facility] (Lab) [address], [place], [address], 03/21/2025 14:27:09 03/17/20 25 03/17/2025 RPR SCREE [...] ion (TP-P A) testi ng. Not Available [facility] (Lab) [address], [place], [address], 03/21/2025 14:27:09 03/17/20 25 03/17/2025 RPR SCREE N, REFLE X TITER /CONF IRMAT ION RPR titer 1:8 . none high Not Available [facility] (Lab) [address], [place], [address], 03/21/2025 14:27:09 03/17/20 25 03/17/2025 SYPHI LIS [...] and resul ts, see: https ://ganesh sena [employer] iclab [employer]com / it-mm files /Syph ilis_ Serol ogy_A lgori thm.p df ----- ----- ----- ----A DDITI ONAL INFOR SHAJI N---- ----- ----- ----- This test is inten ded to be used as a confi rmato ry test on sampl es that have been teste d by [facility] syphi lis test. Test Perfo rmed by: [facility] [place] [address], [place] [address] Lab Direc tor: Jay Manzano nn Ph.D. ; CLIA# [id number] Not Available [facility] (Lab) [address], [place], [address], 03/21/2025 14:27:10 03/29/2003/29/2025 CT/GC AND TRICH OMONA S VAGIN SILVA (RRNA ), URINE chlamydia trachomatis, PCR Negati ve negati ve Not Available [facility] (Lab) [address], [place], [address], 03/30/2025 14:21:33 03/29/20 25 03/29/2025 CT/GC AND TRICH OMONA S VAGIN SILVA (RRNA ), URINE neisseria gonorrhoeae, PCR Negati ve negati ve Not Available [facility] (Lab) [address], [place], [address], 03/30/2025 14:21:33 03/29/20 25 03/29/2025 CT/GC AND TRICH OMONA S VAGIN SILVA (RRNA ), URINE trichomonas vaginalis ribosomal RNA (rrna) Negati ve negati ve Not Available [facility] (Lab) [address], [place], [address], 03/30/2025 14:21:33 04/20/20 25 04/20/2025 HEMAT OCRIT (HCT) HCT 29.1 % (based on docume nted legal sex) 34.0-4 5.0 low Not Available [facility] (Lab) [address], [place], [address], 04/23/2025 15:25:44 04/20/20 25 04/20/2025 HEMOG LOBIN (HGB) HGB 9.3 g/dL (based on docume nted legal sex) 11.6-1 5.4 low Not Available [facility] (Lab) [address], [place], [address], 04/23/2025 15:25:45 04/20/2004/20/2025 HIV 1/2 ANTIG EN/AN TIBOD Y, REFLE X CONFI RMATI ON HIV antigen/anti body Nonrea ctive nonrea ctive HIV-1 antig en and HIV-1 /HIV- 2 antib odies were not detec jluis. No labor atory evide nce of HIV infec tion. Not Available [facility] (Lab) [address], [place], [address], 04/23/2025 15:25:45 04/20/20 25 04/20/2025 RPR SCREE [...] ion (TP-P A) testi ng. Not Available [facility] (Lab) [address], [place], [address], 04/23/2025 15:25:46 04/20/20 25 04/20/2025 RPR SCREE N, REFLE X TITER /CONF IRMAT ION RPR titer 1:8 . none high Not Available [facility] (Lab) [address] [place], [address], 04/23/2025 15:25:46 04/20/20 25 04/20/2025 SYPHI LIS [...] nemal antib odies can remai n eleva ljuis despi te prope r treat ment. RPR testi ng is recom loren d to disti nguis h betwe en treat ed and untre ated syphi lis. For addit ional infor matio n on inter preta tion of the syphi lis rever se algor ithm and resul ts, see: https ://ganesh sena [employer] / it-mm files /Syph ilis_ Serol ogy_A lgori thm.p df ----- ----- ----- ----A DDITI ONAL INFOR MATNOHEMY N---- ----- ----- ----- This test is inten ded to be used as a confi rmato ry test on sampl es that have been teste d by [facility] syphi lis test. Test Perfo rmed by: [facility] [place] [address] [place] [address] Lab Direc tor: Jay Manzano nn Ph.D. ; CLIA# [id number] Not Available [facility] (Lab) [address], [place], [address], 04/23/2025 15:25:46 05/27/20 25 05/27/2025 PROTE IN/CR EATIN INE RATIO , URINE creatinine, urine 123.0 mg/dL R-No refer ence range estab lishe d for this assay Not Available [facility] (Lab) [address], [place], [address], 05/28/2025 10:30:45 05/27/20 25 05/27/2025 PROTE IN/CR EATIN INE RATIO , URINE protein, urine 22 mg/dL R-No refer ence range estab lishe d for this assay Not Available [facility] (Lab) [address], [place], [address], 05/28/2025 10:30:45 05/27/20 25 05/27/2025 PROTE IN/CR [...] fican t prote inuri a. Not Available [facility] (Lab) [address], [place], [address], 05/28/2025 10:30:45 06/06/20 25 06/06/2025 CT/GC AND TRICH OMONA S VAGIN SILVA (RRNA ), URINE chlamydia trachomatis, PCR Negati ve negati ve Not Available [facility] (Lab) [address], [place], [address], 06/09/2025 16:13:50 06/06/20 25 06/06/2025 CT/GC AND TRICH OMONA S VAGIN SILVA (RRNA ), URINE neisseria gonorrhoeae, PCR Negati ve negati ve Not Available [facility] (Lab) [address], [place], [address], 06/09/2025 16:13:50 06/06/20 25 06/06/2025 CT/GC AND TRICH OMONA S VAGIN SILVA (RRNA ), URINE trichomonas vaginalis ribosomal RNA (rrna) Negati ve negati ve Not Available [facility] (Lab) [address], [place], [address], 06/09/2025 16:13:50 06/06/20 25 06/06/2025 CULTU RE: [...] t Abnor mal: No Resul ting Lab: [facility] [address] [facility] [address] Tel: CULTU RE ----- ----- ----- --- No Group B strep isola jluis at 2 days (shelia ctive broth enhan cemen t) Not Available [facility] (Lab) [address], [place], [address], 06/09/2025 16:13:50 03/17/20 25 03/17/2025 US, obste tric, 2nd or 3rd trime ster No observ ation record ed. [email or web address] [address], [place], [address], 03/17/2025 15:45:06 03/17/20 25 03/17/2025 US, obste tric, 2nd or 3rd trime ster No observ ation record ed. [email or web address] [place] [address], [place], [address], 03/17/2025 12:51:02 03/17/20 25 03/17/2025 US, obste tric, 2nd or 3rd trime ster No observ ation record ed. [email or web address] [address], [place], [address], 04/07/2025 21:57:11 03/17/20 25 03/17/2025 US, obste tric, 2nd or 3rd trime ster No observ ation record ed. [email or web address] [address] [address], [place], [address], 03/17/2025 23:04:51 03/17/20 25 03/17/2025 US, obste tric, 2nd or 3rd trime ster No observ ation record ed. [email or web address] [facility] [address], [place], [address], 03/17/2025 15:45:46 03/17/20 25 03/17/2025 US, obste tric, 2nd or 3rd trime ster No observ ation record ed. [address] [address], [place], [address], 03/18/2025 17:16:02 05/18/2005/18/2025 US, obste tric, follo w-up No observ ation record ed. [facility] [address], [place], [address], 05/18/2025 18:23:17 05/18/2005/18/2025 US, obste tric, follo w-up No observ ation record ed. [email or web address] [address] [address], [place], [address], 05/20/2025 13:20:22 05/25/2005/25/2025 , obste tric, bioph ysica l profi le + non-s tress test No observ ation record ed. [facility] [address], [place], [address], 05/25/2025 17:34:34 05/25/20 25 05/25/2025 US, obste tric, follo w-up No observ ation record ed. [facility] [address], [place], [address], 05/26/2025 14:44:53 05/25/2005/25/2025 non-s tress test No observ ation record ed. [email or web address] [place] [address], [place], [address], 05/25/2025 18:39:52 05/25/20 non-s tress test No observ ation record ed. [email or web address] [facility] [address], [place], [address], 05/25/2025 17:32:07 05/30/2005/30/2025 US, obste tric, bioph ysica l profi le + non-s tress test No observ ation record ed. [email or web address] [facility] [address], [place], [address], 05/30/2025 12:42:17 05/30/2005/30/2025 US, obste tric, bioph ysica l profi le + non-s tress test No observ ation record ed. [email or web address] [address] [address], [place], [address], 05/30/2025 17:35:43 05/30/2005/30/2025 non-s tress test No observ ation record ed. [email or web address] [place] [address], [place], [address], 05/30/2025 13:00:42 05/30/20 non-s tress test No observ ation record ed. [email or web address] [place] [address], [place], [address], 05/30/2025 13:02:59 06/06/2006/06/2025 US, obste tric, bioph ysica l profi le + non-s tress test No observ ation record ed. [email or web address] [place] [address], [place], [address], 06/06/2025 14:28:11 06/06/2006/06/2025 , lucretia dimas, bioph ysica l profi le + non-s tress test No observ ation record ed. [email or web address] [address] [address], [place], [address], 06/06/2025 15:10:23 06/07/2006/07/2025 non-s tress test No observ ation record ed. [email or web address] [facility] [address], [place], [address], 2025 20:27:42 06/07/20 non-s tress test No observ ation record ed. [email or web address] Not Available 2024 15:33:58 06/13/2006/13/2025 , obste tric, follo w-up No observ ation record ed. [email or web address] [facility] [address], [place], [address], 06/14/2025 10:34:08 06/13/2006/13/2025 non-s tress test No observ ation record ed. PATRICIA [place] [address], [place], [address], 06/19/2025 18:04:34 06/13/20 non-s tress test No observ ation record ed. [email or web address] [place] [address], [place], [address], 06/13/2025 18:04:44 06/13/2006/14/2025 US, obste tric, follo w-up No observ ation record ed. [email or web address] [place] [address], [place], [address], 06/14/2025 13:38:03 06/13/20 25 06/14/2025 US, obste tric, bioph ysica l profi le + non-s tress test No observ ation record ed. [email or web address] [place] [address], [place], [address], 06/14/2025 13:38:17 06/15/20 25 2025 non-s tress test No observ ation record ed. [facility] [address], [place], [address], 06/17/2025 09:42:27 06/20/2006/20/2025 US, lucretia tric, bioph ysica l profi le + non-s tress test No observ ation record ed. [email or web address] [place] [address], [place], [address], 06/20/2025 13:28:54 06/20/20 25 06/20/2025 US, obstjesús tric, follo w-up No observ ation record ed. [email or web address] [address] [address], [place], [address], 06/20/2025 16:32:26 06/20/20 25 06/20/2025 non-s tress test No observ ation record ed. [email or web address] [place] [address], [place], [address], 06/20/2025 18:00:22 06/20/20 non-s tress test No observ ation record ed. [email or web address] [facility] [address], [place], [address], 06/20/2025 17:57:42 06/27/20 25 06/27/2025 US, obste tric, bioph ysica l profi le No observ ation record ed. [email or web address] [facility] [address], [place], [address], 06/28/2025 11:16:29 06/27/2006/27/2025 US, obste tric, bioph ysica l profi le + non-s tress test No observ ation record ed. [facility] [address], [place], [address], 06/27/2025 18:49:37 06/27/20 25 06/27/2025 non-s tress test No observ ation record ed. [facility] [address], [place], [address], 06/27/2025 18:50:27 06/27/20 non-s tress test No observ ation record ed. [email or web address] [facility] [address], [place], [address], 06/27/2025 12:29:10 Result Notes None recorded. Problems Name Problem SNOMED Code Status Onset Date Resolution Date Notes Provider Name and Address Organization Details Recorded Time Anemia 881849748 Completed Trino serrano, [facility] 4 13:00:34 Pre-ecla mpsia 707337689 Completed 37w Delivery , 2x/wk antenata l testing Trino serrano, [facility] 4 13:00:34 Group B Streptoc occus carrier 5180156161 103 Completed AMP in labor Trino serrano, [facility] 4 13:00:33 Pregnanc y 54084445 Completed 202210/27/2023 Jazz serrano, [facility] 5 12:31:25 Syphilis 40723276 Completed 2022 no s/s, +fta abs- tx schedule d 06/05,, 2 Britaney Saige [facility] 4 13:00:34 Infectio n by Analia hidalgo [id number] Completed 2022 2/2 positive - tinidazo le tx 2/5 - RONEN in 4wks Trino Moulton [facility] 4 13:00:34 Gonorrhe a [id number] Completed 2022 PA sent 08/20 for Ceftriax one - RONEN NEGATIVE Trino Moulton [facility] 4 13:00:34 Pregnanc y 78647876 Active 2024 Jazz Yonis [facility] 5 12:31:25 Past pregnanc y history of pre-ecla mpsia 4495490717 80043 Active 2024 recommen ded ASA previous delivery PTL 36w6d 10/08/23 EDC 10/30/23 antenata l testing Juana Warner [facility] 5 11:26:48 History of syphilis [id number] 611519 Active 2024 treated in previous pregnanc y titers 05/2023 1:32 decrease d to 1:8 03/[facility] 11:51:07 History of chlamydi al infectio n 626406920 Active 2024 Isidro Le MD [address], [place], [address], [place] [facility] 5 12:53:43 Iron deficien cy anemia 15657663 Active 2024 hgg decrease d 03-17 to 9-3 Iron infusion order faxed 05/04 _ pending insuranc e) Juana Warner [facility], [facility] 5 11:03:51 Finding of arrangem ent of fetus 54925460 Active 2024 Transver se Isidro Le MD [address], [place], [address], [facility] 17:33:30 Problem Notes None recorded. Medical [...] Address Organization Details Last Updated DateTime 06/13/2025 69424.301 28 g 93516.301 28 g 98/65 mm[Hg] 98/65 mm[Hg] Jazz Somers [facility] 06/13/2025 18:02:09 Social History Question Answer Notes LastModified by Organizat ion Details LastModified Time Tobacco Smoking Status Never Smoker Jacqueline Dawson maggie, [facility] 03/07/2023 14:21:17 Are You Blind Or Do You Have Difficulty Seeing? No [email or web address] Information n ot available 10/01/2023 What Is Your Level Of Caffeine Consumption? Occasional [email or web address] Information not available 10/01/2023 How Much Tobacco Do You Chew? None [email or web address] Information not available 10/01/2023 In The 14 Days Before Symptom Onset, Have You Had Close Contact With A Laboratory-confirm ed COVID-19 While That Case Was Ill? No Information n ot available 10/01/2023 In The 14 Days Before Symptom Onset, Have You Had Close Contact With A Person Who Is Under Investigation For COVID-19 While That Person Was Ill? No [email or web address] Information not available 10/01/2023 Have You Been To An Area Known To Be High Risk For COVID-19? No [email or web address] Information not available 10/01/2023 Are You Deaf Or Do You Have Serious Difficulty Hearing? No [email or web address] Information not available 10/01/2023 What Type Of Diet Are You Following? REGULAR [email or web address] Information n ot available 10/01/2023 What Is The Highest Grade Or Level Of School You Have Completed Or The Highest Degree You Have Received? VP59569-0 [email or web address] Information not available 10/01/2023 Are There Any Guns Present In Your Home? No [email or web address] Information not available 10/01/2023 Do You Use Protection During Sex? Usually [email or web address] Information not available 10/01/2023 Do You Use Your Seat Belt Or Car Seat Routinely? Yes [email or web address] Information not available 10/01/2023 Do You Have Smoke And Carbon Monoxide Detectors In Your Home? No [email or web address] Information not available 10/01/2023 How Much Tobacco Do You Smoke? No [id number] Information not available 10/01/2023 Do You Use Sunscreen Routinely? No [email or web address] Information not available 10/01/2023 Have You Used IV Drugs? No [email or web address] Information not available 10/01/2023 Do You Have Difficulty Walking Or Climbing Stairs? No [email or web address] Information not available 10/01/2023 Sex: Unknown Functional Status Question Answer Note LastModified by Organizat ion Details LastModified Time Do you use any illicit or recreational drugs? No [email or web address] Information not available 10/01/2023 What is your level of alcohol consumption? None [email or web address] Information not available 10/01/2023 Are you able to walk independently without assistance or assistive devices? YESWOREST [email or web address] Information not available 10/01/2023 Are you able to care for yourself independently? Yes [email or web address] Information not available 10/01/2023 Do you have difficulty dressing, bathing, grooming, or toileting? No [email or web address] Information not available 10/01/2023 What is your exercise level? Moderate [email or web address] Information not available 10/01/2023 Mental Status Question Answer Note LastModified by Organization D etails LastModified Time Do you feel stressed (tense, restless, nervous, or anxious, or unable to sleep at night)? [id number] [email or web address] Information not available 10/01/2023 Family History Relationship [...] ICD10 Code Diagnosis IMO Codes Diagnosis Note [id number] Isidro Le MD [facility] [address] [address] 05/18/2025 15:16:07 05/18/2025 15:56:40 care: obstetric risk 559056453 O09.293 Z3A.32 1711120 [id number] Isidro Le MD [facility] [address] [address] 05/18/2025 15:17:46 05/18/2025 16:51:15 care status 081583828 Z34.83 40760731 [id number] Isidro Le MD [facility] [address],[place] [address] 05/25/2025 15:01:48 05/25/2025 15:34:08 care: obstetric risk 931110524 O09.293 O09.299 Z3A.33 8225941 [id number] MD Clay Aragon [address],[place] [address] 05/25/2025 15:07:02 05/25/2025 17:32:49 Past history of pre-eclampsia 8687240330 96535 Z87.59 241153 [id number] Isidro Le MD [facility] [address],[place] [address] 05/25/2025 15:07:21 05/25/2025 17:10:12 care status 243956405 Z34.83 43070384 [id number] [facility] [address],[place] [address] 05/27/2025 09:25:56 05/27/2025 09:44:43 Backache 256359213 M54.9 [id number] Acute headache 177592434 R51.9 [id number] call this afternoon if no relief will try imitrex [id number] Isidro Le MD [facility] [address],[place] [address] 05/30/2025 11:35:55 05/30/2025 12:10:04 care: obstetric risk 242135538 O09.293 Z3A.34 0475064 [id number] MD Clay Aragon [address],[place] [address] 05/30/2025 11:36:32 05/30/2025 13:02:53 Pre-eclampsia 517498574 O14.90 586825 [id number] MD Clay Aragon [address],[place] [address] 05/30/2025 11:36:55 05/30/2025 13:17:39 care status 761262487 Z34.83 31954075 [id number] MD Clay Aragon [address],[place] [address] 06/06/2025 13:30:49 06/06/2025 14:28:09 care: obstetric risk 153474394 O09.293 Z3A.35 9911550 [id number] MD Clay Aragon [address],[place] [address] 06/06/2025 13:31:14 2025 10:42:54 Past history of pre-eclampsia 9750669226 19168 Z87.59 195715 [id number] MD Clay Aragon [address],[place] [address] 06/06/2025 13:31:30 06/06/2025 15:34:03 care status 413475827 Z34.83 15407561 [id number] MD Clay Aragon [address],[place] [address] 06/13/2025 15:39:53 06/14/2025 09:09:52 care: obstetric risk 456156111 O09.293 Z3A.36 7832834 [id number] BLACK YUN MD [facility] [address],[place] [address] 06/13/2025 15:40:02 06/14/2025 09:09:28 Past history of pre-eclampsia 0276630247 44506 Z87.59 965465 [id number] Isidro Le MD [facility] [address],[place] [address] 06/13/2025 15:40:14 06/13/2025 17:38:16 care status 288236267 Z34.83 [id number] Health Concerns Section Related Observation LastModified by Organization Detai ls LastModified Time None Recorded Concern Status LastModified by Organization Details LastModified Time None Recorded Payers Encounter Date Sequence Insurance Name Policy Number Policy Vital Covered Member ID Vital Member ID Guarantor Name 06/13/2025 1 [place] [employer] Gisela Bates [id number] Gisela Bates Notes Date Note Type Note Provider Name and Address Organization Details Recorded Time 06/13/2025 text/html Generic HPI TemplateReported by Patient Isidro Le MD [address], [place], [address], [place] [facility] 06/13/2025 17:37:55 OBGyn Episode Ob Episode Information Episode Created Date Number of Fetuses Patient Bloodtype Patient rh Status Prepregnancy Weight lbs Domestic Partner Domestic Partner Phone Father Name Tray Filler Status 03/17/20 25 1 B Positive OPEN Fetus Data First Name Last Name Admitted to NICU Weight (g) Sex Living Outcome Pediatric Complications Fetus ID Race Codes Race Delivery Type [id number] Problems Problem Notes + RPR tx spoke [...] , fax all labs to health dept [phone] . 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's JGBilateral double renal artery Problem Name Start Date End Date Resolution Snomed Code Not e History of syphilis 03/17/2025 [id number] treated in previous pregnancytiters 05/2023 1:32 decreased to 1:8 03/17 Iron deficiency anemia 05/04/2025 30697653 hgg decreased to 9-3 Iron infusion order faxed 05/04 _ pending insurance) History of chlamydial infection 03/17/2025 180284187 Past history of pre-eclampsia 03/17/2025 [id number] recommended ASAprevious delivery PTL 36w6d 10/08/23 EDC 10/30/23 testing Finding of arrangement of fetus 06/13/2025 [id number] Transverse Jerome Calculation Initial Jeroem Date Initial Exam Date Initial Exam Provider [...] Weight in lbs Pre/Post Dialysis Refused Weight 131.346874760364 BP Diastolic BP Location Tested BP Systolic [...] Weight in lbs Pre/Post Dialysis Refused Weight 131.291118610619 BP Diastolic BP Location Tested BP Systolic [...] Type Weight in lbs Pre/Post Dialysis Refused 133.093167980875 BP Diastolic BP Location Tested BP Systolic [...] Type Weight in lbs Pre/Post Dialysis Refused 135.05093082122 BP Diastolic BP Location Tested BP Systolic [...] Type Weight in lbs Pre/Post Dialysis Refused 135.68871425083 BP Diastolic BP Location Tested BP Systolic [...] Weight in lbs Pre/Post Dialysis Refused Weight 139.10965049815 BP Diastolic BP Location Tested BP Systolic BP Type 76 L arm 112 sitting Fetus Heart Rate Present Fetus Movement A Yes Comments Flowsheet Date 05/25/2025 Solorzano Score Blood Edema Fundus Height Fundus Units Glucose Ketones Leukocytes Nitrite Labor Signs Protein Cervic Dilation Cervic Effacement Cervic Station Type Weight in lbs Pre/Post Dialysis Refused Weight 149.21428253457 BP Diastolic BP Location Tested BP Systolic [...] Weight in lbs Pre/Post Dialysis Refused Weight 138.358567884424 BP Diastolic BP Location Tested BP Systolic BP Type 78 L arm 120 sitting Fetus Heart Rate Present A 139 Fetus Movement A Yes Comments was at [place] yesterday wi th ruiz and back pain [...] Type Weight in lbs Pre/Post Dialysis Refused 139.609085849991 BP Diastolic BP Location Tested BP Systolic BP Type 74 L arm 119 sitting Fetus Heart Rate Present Fetus Movement A Yes Comments Flowsheet Date 05/30/2025 Solorzano Score Blood Edema Fundus Height Fundus Units Glucose Ketones Leukocytes Nitrite Labor Signs Protein Cervic Dilation Cervic Effacement Cervic Station Type Weight in lbs Pre/Post Dialysis Refused 139.985384988652 BP Diastolic BP Location Tested BP Systolic [...] Type Weight in lbs Pre/Post Dialysis Refused 142.476574994849 BP Diastolic BP Location Tested BP Systolic [...] Type Weight in lbs Pre/Post Dialysis Refused 144.535573409755 BP Diastolic BP Location Tested BP Systolic BP Type 65 L arm 98 sitting Fetus Heart Rate Present Fetus Movement A Yes Comments Flowsheet Date 06/13/2025 Solorzano Score Blood Edema Fundus Height Fundus Units Glucose Ketones Leukocytes Nitrite Labor Signs Protein Cervic Dilation Cervic Effacement Cervic Station Type Weight in lbs Pre/Post Dialysis Refused 144.911167928497 BP Diastolic BP Location Tested BP Systolic [...] Weight in lbs Pre/Post Dialysis Refused Weight 144.46448322155 BP Diastolic BP Location Tested BP Systolic BP Type 64 L arm 104 sitting Fetus Heart Rate Present Fetus Movement A Yes Comments Flowsheet Date 06/20/2025 Solorzano Score Blood Edema Fundus Height Fundus Units Glucose Ketones Leukocytes Nitrite Labor Signs Protein Cervic Dilation Cervic Effacement Cervic Station Type Weight in lbs Pre/Post Dialysis Refused 144.170834351859 BP Diastolic BP Location Tested BP Systolic [...] Type Weight in lbs Pre/Post Dialysis Refused 147.773985255638 BP Diastolic BP Location Tested BP Systolic BP Type 70 L arm 104 sitting Fetus Heart Rate Present Fetus Movement A Yes Comments Flowsheet Date 06/27/2025 Solorzano Score Blood Edema Fundus Height Fundus Units Glucose Ketones Leukocytes Nitrite Labor Signs Protein Cervic Dilation Cervic Effacement Cervic Station Type Weight in lbs Pre/Post Dialysis Refused 147.513516993156 BP Diastolic BP Location Tested BP Systolic [...]
--- OUTSIDE RECORDS SUMMARY | 2025-07-01 06:19 | XMS_ITS | Continuity of Care Document ---
Author Organization [facility] Address [address] [place] [address] [place] [address] Assessment No assessment recorded. Plan of Treatment [...] d. Imaging non-str ess test 2024 025 [email or web address] [address], [address], [place], [address], 2025 15:29:52 Medication Orders None recorde d. Patient TargetsNo [...] Resul ting Lab: [facility] [address] [facility] [address] Tel: CULTU RE ----- ----- ----- --- No growt h in 1 day (dete ction level of 10,00 0 colon ies / ml.) Not Available [facility] (Lab) [address] [facility], [place], [address], 03/19/2025 07:23:20 03/17/20 25 03/17/2025 CBC W/DIF F WBC 5.0 10'3/ uL 3.5-10 .5 Not Available [facility] (Lab) [address] [facility], [place], [address], 03/21/2025 14:27:06 03/17/20 25 03/17/2025 CBC W/DIF F RBC 3.57 10'6/ uL (based on docume nted legal sex) 3.80-5 .20 low Not Available [facility] (Lab) [address] [facility], [place], [address], 03/21/2025 14:27:06 03/17/20 25 03/17/2025 CBC W/DIF F HGB 10.5 g/dL (based on docume nted legal sex) 11.6-1 5.4 low Not Available [facility] (Lab) [address] [facility], [place], [address], 03/21/2025 14:27:06 03/17/20 25 03/17/2025 CBC W/DIF F HCT 30.2 % (based on docume nted legal sex) 34.0-4 5.0 low Not Available [facility] (Lab) [address] [facility], [place], [address], 03/21/2025 14:27:06 03/17/20 25 03/17/2025 CBC W/DIF F MCV 84.6 fL 80.0-9 9.0 Not Available [facility] (Lab) [address] [facility], [place], [address], 03/21/2025 14:27:06 03/17/20 25 03/17/2025 CBC W/DIF F MCH 29.4 pg 27.0-3 4.0 Not Available [facility] (Lab) [address] [facility], [place], [address], 03/21/2025 14:27:06 03/17/20 25 03/17/2025 CBC W/DIF F MCHC 34.8 g/dL 32.0-3 5.5 Not Available [facility] (Lab) [address] [facility], [place], [address], 03/21/2025 14:27:06 03/17/20 25 03/17/2025 CBC W/DIF F RDW 13.3 % 11.0-1 5.0 Not Available [facility] (Lab) [address] [facility], [place], [address], 03/21/2025 14:27:06 03/17/20 25 03/17/2025 CBC W/DIF F plt 235 10'3/ uL 150-40 0 Not Available [facility] (Lab) [address] [facility], [place], [address], 03/21/2025 14:27:06 03/17/20 25 03/17/2025 CBC W/DIF F MPV 10.4 fL 8.8-12 .1 Not Available [facility] (Lab) [address] [facility], [place], [address], 03/21/2025 14:27:06 03/17/20 25 03/17/2025 CBC W/DIF F NRBC's 0.0 % 0.0 Not Available [facility] (Lab) [address] [facility], [place], [address], 03/21/2025 14:27:06 03/17/20 25 03/17/2025 CBC W/DIF F absolute NRBCs 0.0 10'3/ uL no refere nce range establ ished Not Available [facility] (Lab) [address] [facility], [place], [address], 03/21/2025 14:27:06 03/17/20 25 03/17/2025 CBC W/DIF F neutrophils 72.4 % 34.0-7 3.0 Not Available [facility] (Lab) [address] [facility], [place], [address], 03/21/2025 14:27:06 03/17/20 25 03/17/2025 CBC W/DIF F lymphocytes 14.4 % 15.0-5 0.0 low Not Available [facility] (Lab) [address] [facility], [place], [address], 03/21/2025 14:27:06 03/17/20 25 03/17/2025 CBC W/DIF F monocytes 6.6 % 1.0-15 .0 Not Available [facility] (Lab) [address] [facility], [place], [address], 03/21/2025 14:27:06 03/17/20 25 03/17/2025 CBC W/DIF F eosinophils 5.2 % 0.0-8. 0 Not Available [facility] (Lab) [address] [facility], [place], [address], 03/21/2025 14:27:06 03/17/20 25 03/17/2025 CBC W/DIF F basophils 0.4 % 0.0-2. 0 Not Available [facility] (Lab) [address] [facility], [place], [address], 03/21/2025 14:27:06 03/17/20 25 03/17/2025 CBC W/DIF [...] separ ately if prese nt. Not Available [facility] (Lab) [address] [facility], [place], [address], 03/21/2025 14:27:06 03/17/20 25 03/17/2025 CBC W/DIF F absolute neutrophils 3.6 10'3/ uL 1.5-8. 0 Not Available [facility] (Lab) [address] [facility], [place], [address], 03/21/2025 14:27:06 03/17/20 25 03/17/2025 CBC W/DIF F absolute lymphocytes 0.7 10'3/ uL 1.0-4. 0 low Not Available [facility] (Lab) [address], [place], [address], 03/21/2025 14:27:06 03/17/20 25 03/17/2025 CBC W/DIF F absolute monocytes 0.3 10'3/ uL 0.2-1. 0 Not Available [facility] (Lab) [address] [facility], [place], [address], 03/21/2025 14:27:06 03/17/20 25 03/17/2025 CBC W/DIF F absolute eosinophils 0.3 10'3/ uL 0.0-0. 6 Not Available [facility] (Lab) [address] [facility], [place], [address], 03/21/2025 14:27:06 03/17/20 25 03/17/2025 CBC W/DIF F absolute basophils 0.0 10'3/ uL 0.0-0. 3 Not Available [facility] (Lab) [address] [facility], [place], [address], 03/21/2025 14:27:06 03/17/20 25 03/17/2025 CBC W/DIF [...] bhand book. nm.or g/gen derx Not Available [facility] (Lab) [address], [place], [address], 03/21/2025 14:27:06 03/17/2003/17/2025 HIV 1/2 ANTIG EN/AN TIBOD Y, REFLE X CONFI RMATI ON HIV antigen/anti body Nonrea ctive nonrea ctive HIV-1 antig en and HIV-1 /HIV- 2 antib odies were not detec jluis. No labor atory evide nce of HIV infec tion. Not Available [facility] (Lab) [address], [place], [address], 03/21/2025 14:27:06 03/17/20 25 03/17/2025 HEPAT ITIS B SURFA CE ANTIG EN hepatitis B surface antigen Non-re active non-re active This assay was perfo rmed using [facility] [employer] [facility] [employer] ratio n reage nts and test kits. Value s obtai gayla with other assay metho ds or kits canno t be used inter lee eably . Not Available [facility] (Lab) [address], [place], [address], 03/21/2025 14:27:07 03/17/20 25 03/17/2025 HEPAT ITIS C ANTIB ELOISE SCREE N, REFLE X TO CONFI RMATI ON hepatitis C antibody Non-re active non-re active Antib odies to HCV Not Detec jluis, does not exclu de the possi bilit y of expos ure to HCV. Not Available [facility] (Lab) [address] [place], [address], 03/21/2025 14:27:07 03/17/20 25 03/17/2025 RUBEL LA IGG ANTIB ELOISE, QUANT rubella antibodies, IgG Reacti ve reacti ve Not Available [facility] (Lab) [address] [facility], [place], [address], 03/21/2025 14:27:08 03/17/20 25 03/17/2025 RUBEL LA IGG ANTIB ELOISE, QUANT rubella antibodies, IgG quant 14.2 IU/mL >=10 Non-r eacti ve (Non- Immun e) <10 IU/mL React reyna (Immu ne) > or = 10 IU/mL Not Available [facility] (Lab) [address] [facility], [place], [address], 03/21/2025 14:27:08 03/17/20 25 03/17/2025 TYPE/ RH/SC REEN ABO/Rh type B POS Not Available [facility] (Lab) [address] [facility], [place], [address], 03/21/2025 14:27:08 03/17/20 25 03/17/2025 TYPE/ RH/SC REEN antibody screen NEG Not Available [facility] (Lab) [address] [facility], [place], [address], 03/21/2025 14:27:08 03/17/20 25 03/17/2025 TYPE/ RH/SC REEN exp date 2024 23:59 Not Available [facility] (Lab) [address] [facility], [place], [address], 03/21/2025 14:27:08 03/17/20 25 03/17/2025 HEMOG LOBIN [...] >8.0% Actio n sugge sted Not Available [facility] (Lab) [address] [facility], [place], [address], 03/21/2025 14:27:09 03/17/20 25 03/17/2025 RPR SCREE [...] ion (TP-P A) testi ng. Not Available [facility] (Lab) [address] [facility], [place], [address], 03/21/2025 14:27:09 03/17/20 25 03/17/2025 RPR SCREE N, REFLE X TITER /CONF IRMAT ION RPR titer 1:8 . none high Not Available [facility] (Lab) [address] [facility], [place], [address], 03/21/2025 14:27:09 03/17/20 25 03/17/2025 SYPHI LIS [...] of the syphi lis rever [facility] and resul ts, see: https ://ganesh sena [employer] / it-mm files /Syph ilis_ Serol ogy_A lgori thm.p df ----- ----- ----- ----A DDITI ONAL INFOR VANNA N---- ----- ----- ----- This test is inten ded to be used as a confi rmato ry test on sampl es that have been teste d by [facility] syphi lis test. Test Perfo rmed by: [facility] - [place] [address], [place] [address] Lab Direc tor: Jay Manzano nn Ph.D. ; CLIA# [id number] Not Available [facility] (Lab) [address] [facility], [place], [address], 03/21/2025 14:27:10 03/29/2003/29/2025 CT/GC AND TRICH OMONA S VAGIN SILVA (RRNA ), URINE chlamydia trachomatis, PCR Negati ve negati ve Not Available [facility] (Lab) [address] [place], [address], 03/30/2025 14:21:33 03/29/20 25 03/29/2025 CT/GC AND TRICH OMONA S VAGIN SILVA (RRNA ), URINE neisseria gonorrhoeae, PCR Negati ve negati ve Not Available [facility] (Lab) [address] [place], [address], 03/30/2025 14:21:33 03/29/20 25 03/29/2025 CT/GC AND TRICH OMONA S VAGIN SILVA (RRNA ), URINE trichomonas vaginalis ribosomal RNA (rrna) Negati ve negati ve Not Available [facility] (Lab) [address] [place], [address], 03/30/2025 14:21:33 04/20/20 25 04/20/2025 HEMAT OCRIT (HCT) HCT 29.1 % (based on docume nted legal sex) 34.0-4 5.0 low Not Available [facility] (Lab) [address] [facility], [place], [address], 04/23/2025 15:25:44 04/20/20 25 04/20/2025 HEMOG LOBIN (HGB) HGB 9.3 g/dL (based on docume nted legal sex) 11.6-1 5.4 low Not Available [facility] (Lab) [address] [facility], [place], [address], 04/23/2025 15:25:45 04/20/20 25 04/20/2025 HIV 1/2 ANTIG EN/AN TIBOD Y, REFLE X CONFI RMATI ON HIV antigen/anti body Nonrea ctive nonrea ctive HIV-1 antig en and HIV-1 /HIV- 2 antib odies were not detec jluis. No labor atory evide nce of HIV infec tion. Not Available [facility] (Lab) [address] [facility], [place], [address], 04/23/2025 15:25:45 04/20/20 25 04/20/2025 RPR SCREE [...] ion (TP-P A) testi ng. Not Available [facility] (Lab) [address] [facility], [place], [address], 04/23/2025 15:25:46 04/20/20 25 04/20/2025 RPR SCREE N, REFLE X TITER /CONF IRMAT ION RPR titer 1:8 . none high Not Available [facility] (Lab) [address], [place], [address], 04/23/2025 15:25:46 04/20/20 25 04/20/2025 SYPHI LIS [...] of the syphi lis rever se [facility], see: https ://ganesh sena [employer] / it-mm files /Syph ilis_ Serol ogy_A lgori thm.p df ----- ----- ----- ----A DDITI ONAL INFOR VANNA N---- ----- ----- ----- This test is inten ded to be used as a confi rmato ry test on sampl es that have been teste d by [facility] syphi lis test. Test Perfo rmed by: [facility] - [place] [address] , [place] [address] Lab Direc tor: Jay Manzano nn Ph.D. ; CLIA# [id number] Not Available [facility] (Lab) [address], [place], [address], 04/23/2025 15:25:46 05/27/20 25 05/27/2025 PROTE IN/CR EATIN INE RATIO , URINE creatinine, urine 123.0 mg/dL R-No refer ence range estab lishe d for this assay Not Available [facility] (Lab) [address] [facility], [place], [address], 05/28/2025 10:30:45 05/27/20 25 05/27/2025 PROTE IN/CR EATIN INE RATIO , URINE protein, urine 22 mg/dL R-No refer ence range estab lishe d for this assay Not Available [facility] (Lab) [address] [facility], [place], [address], 05/28/2025 10:30:45 05/27/20 25 05/27/2025 PROTE IN/CR [...] fican t prote inuri a. Not Available [facility] (Lab) [address] [facility], [place], [address], 05/28/2025 10:30:45 06/06/20 25 06/06/2025 CT/GC AND TRICH OMONA S VAGIN SILVA (RRNA ), URINE chlamydia trachomatis, PCR Negati ve negati ve Not Available [facility] (Lab) [address] [place], [address], 06/09/2025 16:13:50 06/06/20 25 06/06/2025 CT/GC AND TRICH OMONA S VAGIN SILVA (RRNA ), URINE neisseria gonorrhoeae, PCR Negati ve negati ve Not Available [facility] (Lab) [address] [place], [address], 06/09/2025 16:13:50 06/06/20 25 06/06/2025 CT/GC AND TRICH OMONA S VAGIN SILVA (RRNA ), URINE trichomonas vaginalis ribosomal RNA (rrna) Negati ve negati ve Not Available [facility] (Lab) [address] [facility], [place], [address], 06/09/2025 16:13:50 06/06/20 25 06/06/2025 CULTU RE: [...] Resul ting Lab: [facility] [address] [facility] [address] Tel: CULTU RE ----- ----- ----- --- No Group B strep isola jluis at 2 days (shelia ctive broth enhan cemen t) Not Available [facility] (Lab) [address] [facility], [place], [address], 06/09/2025 16:13:50 03/17/20 25 03/17/2025 US, obste tric, 2nd or 3rd trime ster No observ ation record ed. [email or web address] [address], [place], [address], 03/17/2025 15:45:06 03/17/20 25 03/17/2025 US, obste tric, 2nd or 3rd trime ster No observ ation record ed. [email or web address] [place] [address], [place], [address], 03/17/2025 12:51:02 03/17/20 25 03/17/2025 US, obste tric, 2nd or 3rd trime ster No observ ation record ed. [email or web address] [address] [address], [place], [address], 04/07/2025 21:57:11 03/17/20 25 03/17/2025 US, obste tric, 2nd or 3rd trime ster No observ ation record ed. [email or web address] [facility] [address], [place], [address], 03/17/2025 23:04:51 03/17/20 25 03/17/2025 US, obste tric, 2nd or 3rd trime ster No observ ation record ed. [email or web address] [facility] [address], [place], [address], 03/17/2025 15:45:46 03/17/20 25 03/17/2025 US, obste tric, 2nd or 3rd trime ster No observ ation record ed. [address] [address], [place], [address], 03/18/2025 17:16:02 05/18/2005/18/2025 , obste tric, follo w-up No observ ation record ed. [facility] [address], [place], [address], 05/18/2025 18:23:17 05/18/2005/18/2025 US, obste tric, follo w-up No observ ation record ed. [email or web address] [address] [address], [place], [address], 05/20/2025 13:20:22 05/25/2005/25/2025 , obste tric, bioph ysica l profi le + non-s tress test No observ ation record ed. [facility] [address], [place], [address], 05/25/2025 17:34:34 05/25/20 25 05/25/2025 US, obste tric, follo w-up No observ ation record ed. [email or web address] [facility] [address], [place], [address], 05/26/2025 14:44:53 05/25/2005/25/2025 non-s tress test No observ ation record ed. [email or web address] [place] [address], [place], [address], 05/25/2025 18:39:52 05/25/20 non-s tress test No observ ation record ed. [email or web address] [place] [address], [place], [address], 05/25/2025 17:32:07 05/30/2005/30/2025 US, obste tric, bioph ysica l profi le + non-s tress test No observ ation record ed. [email or web address] [place] [address], [place], [address], 05/30/2025 12:42:17 05/30/2005/30/2025 US, obste tric, bioph ysica l profi le + non-s tress test No observ ation record ed. [email or web address] [address] [address], [place], [address], 05/30/2025 17:35:43 05/30/2005/30/2025 non-s tress test No observ ation record ed. [email or web address] [place] [address], [place], [address], 05/30/2025 13:00:42 05/30/20 non-s tress test No observ ation record ed. [email or web address] [place] [address], [place], [address], 05/30/2025 13:02:59 06/06/2006/06/2025 US, obste tric, bioph ysica l profi le + non-s tress test No observ ation record ed. [email or web address] [place] [address], [place], [address], 06/06/2025 14:28:11 06/06/2006/06/2025 US, lucretia tric, bioph ysica l profi le + non-s tress test No observ ation record ed. [email or web address] [address] [address], [place], [address], 06/06/2025 15:10:23 06/07/2006/07/2025 non-s tress test No observ ation record ed. [email or web address] [place] [address], [place], [address], 2025 20:27:42 06/07/20 non-s tress test No observ ation record ed. [email or web address] Not Available 2024 15:33:58 06/13/2006/13/2025 , obste tric, follo w-up No observ ation record ed. [email or web address] [facility] [address], [place], [address], 06/14/2025 10:34:08 06/13/2006/13/2025 non-s tress test No observ ation record ed. PATRICIA [place] [address], [place], [address], 06/19/2025 18:04:34 06/13/20 non-s tress test No observ ation record ed. [email or web address] [place] [address], [place], [address], 06/13/2025 18:04:44 06/13/2006/14/2025 US, obste tric, follo w-up No observ ation record ed. [email or web address] [place] [address], [place], [address], 06/14/2025 13:38:03 06/13/20 25 06/14/2025 US, obste tric, bioph ysica l profi le + non-s tress test No observ ation record ed. [email or web address] [place] [address], [place], [address], 06/14/2025 13:38:17 06/15/20 25 2025 non-s tress test No observ ation record ed. [facility] [address], [place], [address], 06/17/2025 09:42:27 06/20/2006/20/2025 US, obste tric, bioph ysica l profi le + non-s tress test No observ ation record ed. [email or web address] [place] [address], [place], [address], 06/20/2025 13:28:54 06/20/20 25 06/20/2025 US, obste tric, follo w-up No observ ation record ed. [email or web address] [facility] [address], [place], [address], 06/20/2025 16:32:26 06/20/20 25 06/20/2025 non-s tress test No observ ation record ed. [email or web address] [place] [address], [place], [address], 06/20/2025 18:00:22 06/20/20 non-s tress test No observ ation record ed. [email or web address] [place] [address], [place], [address], 06/20/2025 17:57:42 06/27/20 25 06/27/2025 US, obste tric, bioph ysica l profi le No observ ation record ed. [email or web address] [facility] [address], [place], [address], 06/28/2025 11:16:29 06/27/2006/27/2025 US, obste tric, bioph ysica l profi le + non-s tress test No observ ation record ed. [facility] [address], [place], [address], 06/27/2025 18:49:37 06/27/2006/27/2025 non-s tress test No observ ation record ed. [facility] [address], [place], [address], 06/27/2025 18:50:27 06/27/20 non-s tress test No observ ation record ed. [email or web address] [place] [address] [address], [place], [address], 06/27/2025 12:29:10 Result Notes None recorded. Problems Name Problem SNOMED Code Status Onset Date Resolution Date Notes Provider Name and Address Organization Details Recorded Time Anemia 053646639 Completed Trino serrano, [facility] 4 13:00:34 Pre-ecla mpsia 001551258 Completed 37w Delivery , 2x/wk antenata l testing Trino [facility] 4 13:00:34 Group B Streptoc occus carrier 2044220066 103 Completed AMP in labor Trino serrano [facility] 4 13:00:33 Pregnanc y 12822501 Completed 202210/27/2023 Jazz serrano, [facility] 5 12:31:25 Syphilis 71102012 Completed 2022 no s/s, +fta abs- tx schedule d 06/05,, 2 Trino [facility], [facility] 4 13:00:34 Infectio n by Analia hidalgo [id number] Completed 2022 2/2 positive - tinidazo le tx 2/5 - RONEN in 4wks Trino [facility] 4 13:00:34 Gonorrhe a 76428085 Completed 2022 PA sent 08/20 for Ceftriax one - RONEN NEGATIVE Trino [facility] 4 13:00:34 Pregnanc y 55941177 Active 2024 Jazz [facility], [facility] 5 12:31:25 Past pregnanc y history of pre-ecla mpsia 4304547656 90323 Active 2024 recommen ded ASA previous delivery PTL 36w6d 10/08/23 EDC 10/30/23 antenata l testing Juana Warner [facility] 5 11:26:48 History of syphilis 4654687004 174438 Active 2024 treated in previous pregnanc y titers 05/2023 1:32 decrease d to 1:8 03[facility] 11:51:07 History of chlamydi al infectio n 855578604 Active 2024 Isidro Le MD [address], [place], [address], [facility] 5 12:53:43 Iron deficien cy anemia 66827774 Active 2024 hgg decrease d 03-17 to 9-3 Iron infusion order faxed 05/04 _ pending insuranc e) Juana Warner maggie, [facility] 5 11:03:51 Finding of arrangem ent of fetus 46717210 Active 2024 Transver se Isidro Le MD [address], [place], [address], [facility] 17:33:30 Problem Notes None recorded. Medical [...] Address Organization Details Last Updated DateTime 06/06/2025 01158.92925 g 109/69 mm[Hg] Jazz Somers [facility] 06/06/2025 15:13:54 Social History Question Answer Notes LastModified by Organizat ion Details LastModified Time Tobacco Smoking Status Never Smoker Jacqueline Eunice serrano, [facility] 03/07/2023 14:21:17 Are You Blind Or Do You Have Difficulty Seeing? No [email or web address] Information n ot available 10/01/2023 What Is Your Level Of Caffeine Consumption? Occasional [email or web address] Information not available 10/01/2023 How Much Tobacco Do You Chew? None [email or web address] Information not available 10/01/2023 In The 14 Days Before Symptom Onset, Have You Had Close Contact With A Laboratory-confirm ed COVID-19 While That Case Was Ill? No [email or web address] Information n ot available 10/01/2023 In The 14 Days Before Symptom Onset, Have You Had Close Contact With A Person Who Is Under Investigation For COVID-19 While That Person Was Ill? No Information not available 10/01/2023 Have You Been To An Area Known To Be High Risk For COVID-19? No [email or web address] Information not available 10/01/2023 Are You Deaf Or Do You Have Serious Difficulty Hearing? No [email or web address] Information not available 10/01/2023 What Type Of Diet Are You Following? REGULAR [email or web address] Information n ot available 10/01/2023 What Is The Highest Grade Or Level Of School You Have Completed Or The Highest Degree You Have Received? [id number] [email or web address] Information not available 10/01/2023 Are There Any Guns Present In Your Home? No [email or web address] Information not available 10/01/2023 Do You Use Protection During Sex? Usually [email or web address] Information not available 10/01/2023 Do You Use Your Seat Belt Or Car Seat Routinely? Yes [email or web address] Information not available 10/01/2023 Do You Have Smoke And Carbon Monoxide Detectors In Your Home? No [email or web address] Information not available 10/01/2023 How Much Tobacco Do You Smoke? No [email or web address] Information not available 10/01/2023 Do You Use Sunscreen Routinely? No [email or web address] Information not available 10/01/2023 Have You Used IV Drugs? No [email or web address] Information not available 10/01/2023 Do You Have Difficulty Walking Or Climbing Stairs? No [email or web address] Information not available 10/01/2023 Sex: Unknown Functional Status Question Answer Note LastModified by Organizat ion Details LastModified Time Do you use any illicit or recreational drugs? No Information not available 10/01/2023 What is your level of alcohol consumption? None [email or web address] Information not available 10/01/2023 Are you able to walk independently without assistance or assistive devices? YESWOREST [email or web address] Information not available 10/01/2023 Are you able to care for yourself independently? Yes [email or web address] Information not available 10/01/2023 Do you have difficulty dressing, bathing, grooming, or toileting? No [email or web address] Information not available 10/01/2023 What is your exercise level? Moderate Information not available 10/01/2023 Mental Status Question Answer Note LastModified by Organization D etails LastModified Time Do you feel stressed (tense, restless, nervous, or anxious, or unable to sleep at night)? [id number] Information not available 10/01/2023 Family History Relationship [...] ICD10 Code Diagnosis IMO Codes Diagnosis Note [id number] Isidro Le MD [facility] [address] [address] 05/18/2025 15:16:07 05/18/2025 15:56:40 care: obstetric risk [id number] O09.293 Z3A.32 [id number] [id number] Isidro Le MD [facility] [address],[facility] [place] [address] 05/18/2025 15:17:46 05/18/2025 16:51:15 care status 236306195 Z34.83 [id number] Isidro Le MD [facility] [address] [address] 05/25/2025 15:01:48 05/25/2025 15:34:08 care: obstetric risk 889594011 O09.293 O09.299 Z3A.33 1977723 [id number] MD Clay Aragon [address],[place] [address] 05/25/2025 15:07:02 05/25/2025 17:32:49 Past history of pre-eclampsia [id number] 36875 Z87.59 911316 [id number] MD Clay Aragon [address],[place] [address] 05/25/2025 15:07:21 05/25/2025 17:10:12 care status 408210082 Z34.83 [id number] Mita Tavera [facility] [address],[place] [address] 05/27/2025 09:25:56 05/27/2025 09:44:43 Backache 577181267 M54.9 97120260 Acute headache 749148293 R51.9 [id number] call this afternoon if no relief will try imitrex [id number] MD Clay Aragon [address],[place] [address] 05/30/2025 11:35:55 05/30/2025 12:10:04 care: obstetric risk 488905315 O09.293 Z3A.34 0070823 [id number] MD Clay Aragon [address],[place] [address] 05/30/2025 11:36:32 05/30/2025 13:02:53 Pre-eclampsia 451091989 O14.90 152775 [id number] MD Clay Aragon [address] [place] [address] 05/30/2025 11:36:55 05/30/2025 13:17:39 care status 655180048 Z34.83 04276382 [id number] MD Clay Aragon [address],[facility] [address] 06/06/2025 13:30:49 06/06/2025 14:28:09 care: obstetric risk 636393916 O09.293 Z3A.35 1093200 [id number] Isidro Le MD [facility] [address],[place] [address] 06/06/2025 13:31:14 2025 10:42:54 Past history of pre-eclampsia [id number] 14452 Z87.59 640394 [id number] Isidro Le MD [facility] [address],[place] [address] 06/06/2025 13:31:30 06/06/2025 15:34:03 care status 818750158 Z34.83 [id number] Health Concerns Section Related Observation LastModified by Organization Detai ls LastModified Time None Recorded Concern Status LastModified by Organization Details LastModified Time None Recorded Payers Encounter Date Sequence Insurance Name Policy Number Policy Vital Covered Member ID Vital Member ID Guarantor Name 06/06/2025 1 [place]: [facility] Gisela Bates [id number] Gisela Bates Notes Date Note Type Note Provider Name and Address Organization Details Recorded Time 06/06/2025 text/html Generic HPI TemplateReported by Patient Isidro Le MD [address], [place], [address], [facility] 06/06/2025 15:32:26 OBGyn Episode Ob Episode Information Episode Created Date Number of Fetuses Patient Bloodtype Patient rh Status Prepregnancy Weight lbs Domestic Partner Domestic Partner Phone Father Name Fill Technician Status 03/17/20 25 1 B Positive OPEN Fetus Data First Name Last Name Admitted to NICU Weight (g) Sex Living Outcome Pediatric Complications Fetus ID Race Codes Race Delivery Type [id number] Problems Problem Notes + RPR tx spoke with Shilo Stewart [facility] Dept confirmed pt tx previous RPR 06/05/23, 06/12, & 06/19/23 titter 1:32 decreased to 1:8 per Noami antibody can be + but titer decreasing no tx unless pt sx's rash, lesions sx's rec tx if pt sx's schedule appt for evaluation. RPT labs @ 28wks , fax all labs to health dept [phone] . 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 for OB visit 03/29 Jandry,HARRIS 03/31 pt denies sx's JGBilateral double renal artery Problem Name Start Date End Date Resolution Snomed Code Not e History of syphilis 03/17/2025 [id number] treated in previous pregnancytiters 05/2023 1:32 decreased to 1:8 03/17 Iron deficiency anemia 05/04/2025 [id number] hgg decreased to 9-3 Iron infusion order faxed 05/04 _ pending insurance) History of chlamydial infection 03/17/2025 [id number] Past history of pre-eclampsia 03/17/2025 [id number] recommended ASAprevious delivery PTL 36w6d 10/08/23 EDC 10/30/23 testing Finding of arrangement of fetus 06/13/2025 [id number] Transverse Jerome Calculation Initial Jerome Date Initial [...] Weight in lbs Pre/Post Dialysis Refused Weight 131.143660830939 BP Diastolic BP Location Tested BP Systolic [...] Weight in lbs Pre/Post Dialysis Refused Weight 131.576436952402 BP Diastolic BP Location Tested BP Systolic [...] Type Weight in lbs Pre/Post Dialysis Refused 133.895838756237 BP Diastolic BP Location Tested BP Systolic [...] Type Weight in lbs Pre/Post Dialysis Refused 135.14740020142 BP Diastolic BP Location Tested BP Systolic [...] Type Weight in lbs Pre/Post Dialysis Refused 135.47209642891 BP Diastolic BP Location Tested BP Systolic [...] Weight in lbs Pre/Post Dialysis Refused Weight 139.12375732646 BP Diastolic BP Location Tested BP Systolic BP Type 76 L arm 112 sitting Fetus Heart Rate Present Fetus Movement A Yes Comments Flowsheet Date 05/25/2025 Solorzano Score Blood Edema Fundus Height Fundus Units Glucose Ketones Leukocytes Nitrite Labor Signs Protein Cervic Dilation Cervic Effacement Cervic Station Type Weight in lbs Pre/Post Dialysis Refused Weight 149.29249619965 BP Diastolic BP Location Tested BP Systolic [...] Weight in lbs Pre/Post Dialysis Refused Weight 138.944972815586 BP Diastolic BP Location Tested BP Systolic [...] Type Weight in lbs Pre/Post Dialysis Refused 139.640476547059 BP Diastolic BP Location Tested BP Systolic BP Type 74 L arm 119 sitting Fetus Heart Rate Present Fetus Movement A Yes Comments Flowsheet Date 05/30/2025 Solorzano Score Blood Edema Fundus Height Fundus Units Glucose Ketones Leukocytes Nitrite Labor Signs Protein Cervic Dilation Cervic Effacement Cervic Station Type Weight in lbs Pre/Post Dialysis Refused 139.978397741141 BP Diastolic BP Location Tested BP Systolic [...] Type Weight in lbs Pre/Post Dialysis Refused 142.586638377404 BP Diastolic BP Location Tested BP Systolic [...] Type Weight in lbs Pre/Post Dialysis Refused 144.219225071858 BP Diastolic BP Location Tested BP Systolic BP Type 65 L arm 98 sitting Fetus Heart Rate Present Fetus Movement A Yes Comments Flowsheet Date 06/13/2025 Solorzano Score Blood Edema Fundus Height Fundus Units Glucose Ketones Leukocytes Nitrite Labor Signs Protein Cervic Dilation Cervic Effacement Cervic Station Type Weight in lbs Pre/Post Dialysis Refused 144.325211403853 BP Diastolic BP Location Tested BP Systolic [...] Weight in lbs Pre/Post Dialysis Refused Weight 144.95490598294 BP Diastolic BP Location Tested BP Systolic BP Type 64 L arm 104 sitting Fetus Heart Rate Present Fetus Movement A Yes Comments Flowsheet Date 06/20/2025 Solorzano Score Blood Edema Fundus Height Fundus Units Glucose Ketones Leukocytes Nitrite Labor Signs Protein Cervic Dilation Cervic Effacement Cervic Station Type Weight in lbs Pre/Post Dialysis Refused 144.745366937880 BP Diastolic BP Location Tested BP Systolic [...] Type Weight in lbs Pre/Post Dialysis Refused 147.245894809786 BP Diastolic BP Location Tested BP Systolic BP Type 70 L arm 104 sitting Fetus Heart Rate Present Fetus Movement A Yes Comments Flowsheet Date 06/27/2025 Solorzano Score Blood Edema Fundus Height Fundus Units Glucose Ketones Leukocytes Nitrite Labor Signs Protein Cervic Dilation Cervic Effacement Cervic Station Type Weight in lbs Pre/Post Dialysis Refused 147.527823410029 BP Diastolic BP Location Tested BP Systolic [...]
--- OUTSIDE RECORDS SUMMARY | 2025-07-01 06:20 | XMS_ITS | Continuity of Care Document ---
Author Organization [facility] Address [address] [place] [place] [address] Assessment No assessment recorded. Plan of Treatment [...] + non-str ess test 2024 025 [email or web address] [address] [facility] [address], [place], [address], 05/30/2025 16:42:55 Medication Orders None recorde d. Patient TargetsNo [...] Resul ting Lab: [facility] [address] [facility] [address] Tel: CULTU RE ----- ----- ----- --- No growt h in 1 day (dete ction level of 10,00 0 colon ies / ml.) Not Available [facility] (Lab) [address], [place], [address], 03/19/2025 07:23:20 03/17/2003/17/2025 CBC W/DIF F WBC 5.0 10'3/ uL 3.5-10 .5 Not Available [facility] (Lab) [address], [place], [address], 03/21/2025 14:27:06 03/17/20 25 03/17/2025 CBC W/DIF F RBC 3.57 10'6/ uL (based on docume nted legal sex) 3.80-5 .20 low Not Available [facility] (Lab) [address], [place], [address], 03/21/2025 14:27:06 03/17/20 25 03/17/2025 CBC W/DIF F HGB 10.5 g/dL (based on docume nted legal sex) 11.6-1 5.4 low Not Available [facility] (Lab) [address] [place], [address], 03/21/2025 14:27:06 03/17/20 25 03/17/2025 CBC W/DIF F HCT 30.2 % (based on docume nted legal sex) 34.0-4 5.0 low Not Available [facility] (Lab) [address], [place], [address], 03/21/2025 14:27:06 03/17/20 25 03/17/2025 CBC W/DIF F MCV 84.6 fL 80.0-9 9.0 Not Available [facility] (Lab) [address], [place], [address], 03/21/2025 14:27:06 03/17/20 25 03/17/2025 CBC W/DIF F MCH 29.4 pg 27.0-3 4.0 Not Available [facility] (Lab) [address], [place], [address], 03/21/2025 14:27:06 03/17/20 25 03/17/2025 CBC W/DIF F MCHC 34.8 g/dL 32.0-3 5.5 Not Available [facility] (Lab) [address], [place], [address], 03/21/2025 14:27:06 03/17/20 25 03/17/2025 CBC W/DIF F RDW 13.3 % 11.0-1 5.0 Not Available [facility] (Lab) [address], [place], [address], 03/21/2025 14:27:06 03/17/20 25 03/17/2025 CBC W/DIF F plt 235 10'3/ uL 150-40 0 Not Available [facility] (Lab) [address], [place], [address], 03/21/2025 14:27:06 03/17/20 25 03/17/2025 CBC W/DIF F MPV 10.4 fL 8.8-12 .1 Not Available [facility] (Lab) [address], [place], [address], 03/21/2025 14:27:06 03/17/20 25 03/17/2025 CBC W/DIF F NRBC's 0.0 % 0.0 Not Available [facility] (Lab) [address] [place], [address], 03/21/2025 14:27:06 03/17/20 25 03/17/2025 CBC W/DIF F absolute NRBCs 0.0 10'3/ uL no refere nce range establ ished Not Available [facility] (Lab) [address], [place], [address], 03/21/2025 14:27:06 03/17/20 25 03/17/2025 CBC W/DIF F neutrophils 72.4 % 34.0-7 3.0 Not Available [facility] (Lab) [address], [place], [address], 03/21/2025 14:27:06 03/17/20 25 03/17/2025 CBC W/DIF F lymphocytes 14.4 % 15.0-5 0.0 low Not Available [facility] (Lab) [address], [place], [address], 03/21/2025 14:27:06 03/17/20 25 03/17/2025 CBC W/DIF F monocytes 6.6 % 1.0-15 .0 Not Available [facility] (Lab) [address], [place], [address], 03/21/2025 14:27:06 03/17/20 25 03/17/2025 CBC W/DIF F eosinophils 5.2 % 0.0-8. 0 Not Available [facility] (Lab) [address] [place], [address], 03/21/2025 14:27:06 03/17/20 25 03/17/2025 CBC W/DIF F basophils 0.4 % 0.0-2. 0 Not Available [facility] (Lab) [address] [place], [address], 03/21/2025 14:27:06 03/17/20 25 03/17/2025 CBC W/DIF [...] separ ately if prese nt. Not Available [facility] (Lab) [address], [place], [address], 03/21/2025 14:27:06 03/17/20 25 03/17/2025 CBC W/DIF F absolute neutrophils 3.6 10'3/ uL 1.5-8. 0 Not Available [facility] (Lab) [address], [place], [address], 03/21/2025 14:27:06 03/17/20 25 03/17/2025 CBC W/DIF F absolute lymphocytes 0.7 10'3/ uL 1.0-4. 0 low Not Available [facility] (Lab) [address], [place], [address], 03/21/2025 14:27:06 03/17/20 25 03/17/2025 CBC W/DIF F absolute monocytes 0.3 10'3/ uL 0.2-1. 0 Not Available [facility] (Lab) [address], [place], [address], 03/21/2025 14:27:06 03/17/20 25 03/17/2025 CBC W/DIF F absolute eosinophils 0.3 10'3/ uL 0.0-0. 6 Not Available [facility] (Lab) [address], [place], [address], 03/21/2025 14:27:06 03/17/20 25 03/17/2025 CBC W/DIF F absolute basophils 0.0 10'3/ uL 0.0-0. 3 Not Available [facility] (Lab) [address], [place], [address], 03/21/2025 14:27:06 03/17/20 25 03/17/2025 CBC W/DIF [...] bhand book. nm.or g/gen derx Not Available [facility] (Lab) [address], [place], [address], 03/21/2025 14:27:06 03/17/20 25 03/17/2025 HIV 1/2 ANTIG EN/AN TIBOD Y, REFLE X CONFI RMATI ON HIV antigen/anti body Nonrea ctive nonrea ctive HIV-1 antig en and HIV-1 /HIV- 2 antib odies were not detec jluis. No labor atory evide nce of HIV infec tion. Not Available [facility] (Lab) [address], [place], [address], 03/21/2025 14:27:06 03/17/2003/17/2025 HEPAT ITIS B SURFA CE ANTIG EN hepatitis B surface antigen Non-re active non-re active This assay was perfo rmed using [facility] [employer] ratio n reage nts and test kits. Value s obtai gayla with other assay metho ds or kits canno t be used inter lee eably . Not Available [facility] (Lab) [address], [place], [address], 03/21/2025 14:27:07 03/17/20 25 03/17/2025 HEPAT ITIS C ANTIB ELOISE SCREE N, REFLE X TO CONFI RMATI ON hepatitis C antibody Non-re active non-re active Antib odies to HCV Not Detec jluis, does not exclu de the possi bilit y of expos ure to HCV. Not Available [facility] (Lab) [address], [place], [address], 03/21/2025 14:27:07 03/17/20 25 03/17/2025 RUBEL LA IGG ANTIB ELOISE, QUANT rubella antibodies, IgG Reacti ve reacti ve Not Available [facility] (Lab) [address], [place], [address], 03/21/2025 14:27:08 03/17/20 25 03/17/2025 RUBEL LA IGG ANTIB ELOISE, QUANT rubella antibodies, IgG quant 14.2 IU/mL >=10 Non-r eacti ve (Non- Immun e) <10 IU/mL React reyna (Immu ne) > or = 10 IU/mL Not Available [facility] (Lab) [address], [place], [address], 03/21/2025 14:27:08 03/17/20 25 03/17/2025 TYPE/ RH/SC REEN ABO/Rh type B POS Not Available [facility] (Lab) [address], [place], [address], 03/21/2025 14:27:08 03/17/20 25 03/17/2025 TYPE/ RH/SC REEN antibody screen NEG Not Available [facility] (Lab) [address], [place], [address], 03/21/2025 14:27:08 03/17/20 25 03/17/2025 TYPE/ RH/SC REEN exp date 2024 23:59 Not Available [facility] (Lab) [address], [place], [address], 03/21/2025 14:27:08 03/17/20 25 03/17/2025 HEMOG LOBIN [...] >8.0% Actio n sugge sted Not Available [facility] (Lab) [address], [place], [address], 03/21/2025 14:27:09 03/17/20 25 03/17/2025 RPR SCREE [...] ion (TP-P A) testi ng. Not Available [facility] (Lab) [address], [place], [address], 03/21/2025 14:27:09 03/17/20 25 03/17/2025 RPR SCREE N, REFLE X TITER /CONF IRMAT ION RPR titer 1:8 . none high Not Available [facility] (Lab) [address], [place], [address], 03/21/2025 14:27:09 03/17/20 25 03/17/2025 SYPHI LIS [...] and resul ts, see: https ://ganesh sena [employer] / it-mm files /Syph ilis_ Serol ogy_A lgori thm.p df ----- ----- ----- ----A DDITI ONAL INFOR MATIO N---- ----- ----- ----- This test is inten ded to be used as a confi rmato ry test on sampl es that have been teste d by [facility] syphi lis test. Test Perfo rmed by: [facility] [place] [address], [place] [address] Lab Direc tor: Jay Manzano nn Ph.D. ; CLIA# [id number] Not Available [facility] (Lab) [address], [place], [address], 03/21/2025 14:27:10 03/29/20 25 03/29/2025 CT/GC AND TRICH OMONA S VAGIN SILVA (RRNA ), URINE chlamydia trachomatis, PCR Negati ve negati ve Not Available [facility] (Lab) [address], [place], [address], 03/30/2025 14:21:33 03/29/20 25 03/29/2025 CT/GC AND TRICH OMONA S VAGIN SILVA (RRNA ), URINE neisseria gonorrhoeae, PCR Negati ve negati ve Not Available [facility] (Lab) [address], [place], [address], 03/30/2025 14:21:33 03/29/20 25 03/29/2025 CT/GC AND TRICH OMONA S VAGIN SILVA (RRNA ), URINE trichomonas vaginalis ribosomal RNA (rrna) Negati ve negati ve Not Available [facility] (Lab) [address] [place], [address], 03/30/2025 14:21:33 04/20/20 25 04/20/2025 HEMAT OCRIT (HCT) HCT 29.1 % (based on docume nted legal sex) 34.0-4 5.0 low Not Available [facility] (Lab) [address], [place], [address], 04/23/2025 15:25:44 04/20/20 25 04/20/2025 HEMOG LOBIN (HGB) HGB 9.3 g/dL (based on docume nted legal sex) 11.6-1 5.4 low Not Available [facility] (Lab) [address], [place], [address], 04/23/2025 15:25:45 04/20/20 25 04/20/2025 HIV 1/2 ANTIG EN/AN TIBOD Y, REFLE X CONFI RMATI ON HIV antigen/anti body Nonrea ctive nonrea ctive HIV-1 antig en and HIV-1 /HIV- 2 antib odies were not detec jluis. No labor atory evide nce of HIV infec tion. Not Available [facility] (Lab) [address], [place], [address], 04/23/2025 15:25:45 04/20/20 25 04/20/2025 RPR SCREE [...] ion (TP-P A) testi ng. Not Available [facility] (Lab) [address], [place], [address], 04/23/2025 15:25:46 04/20/20 25 04/20/2025 RPR SCREE N, REFLE X TITER /CONF IRMAT ION RPR titer 1:8 . none high Not Available [facility] (Lab) [address], [place], [address], 04/23/2025 15:25:46 04/20/20 25 04/20/2025 SYPHI LIS [...] of the syphi lis rever [facility] and resul ts, see: https ://ganesh sena [employer] / it-mm files /Syph ilis_ Serol ogy_A lgori thm.p df ----- ----- ----- ----A DDITI ONAL INFOR MATNOHEMY N---- ----- ----- ----- This test is inten ded to be used as a confi rmato ry test on sampl es that have been teste d by [facility] syphi lis test. Test Perfo rmed by: [facility] [place] [address] [place] [address] Lab Direc tor: Jay Manzano nn Ph.D. ; CLIA# [id number] Not Available [facility] (Lab) [address], [place], [address], 04/23/2025 15:25:46 05/27/20 25 05/27/2025 PROTE IN/CR EATIN INE RATIO , URINE creatinine, urine 123.0 mg/dL R-No refer ence range estab lishe d for this assay Not Available [facility] (Lab) [address], [place], [address], 05/28/2025 10:30:45 05/27/20 25 05/27/2025 PROTE IN/CR EATIN INE RATIO , URINE protein, urine 22 mg/dL R-No refer ence range estab lishe d for this assay Not Available [facility] (Lab) [address], [place], [address], 05/28/2025 10:30:45 05/27/20 25 05/27/2025 PROTE IN/CR [...] fican t prote inuri a. Not Available [facility] (Lab) [address], [place], [address], 05/28/2025 10:30:45 03/17/20 25 03/17/2025 US, obste tric, 2nd or 3rd trime ster No observ ation record ed. [email or web address] [address], [place], [address], 03/17/2025 15:45:06 03/17/20 25 03/17/2025 US, obste tric, 2nd or 3rd trime ster No observ ation record ed. [email or web address] [address], [place], [address], 03/17/2025 12:51:02 03/17/20 25 03/17/2025 US, obste tric, 2nd or 3rd trime ster No observ ation record ed. [email or web address] [address], [place], [address], 04/07/2025 21:57:11 03/17/20 25 03/17/2025 US, obste tric, 2nd or 3rd trime ster No observ ation record ed. [email or web address] [address], [place], [address], 03/17/2025 23:04:51 03/17/20 25 03/17/2025 US, obste tric, 2nd or 3rd trime ster No observ ation record ed. [email or web address] [address], [place], [address], 03/17/2025 15:45:46 03/17/20 25 03/17/2025 US, obste tric, 2nd or 3rd trime ster No observ ation record ed. [email or web address] [address], [place], [address], 03/18/2025 17:16:02 05/18/20 25 05/18/2025 US, obste tric, follo w-up No observ ation record ed. [facility] [address], [place], [address], 05/18/2025 18:23:17 05/18/20 25 05/18/2025 US, obste tric, follo w-up No observ ation record ed. [email or web address] [address], [place], [address], 05/20/2025 13:20:22 05/25/20 25 05/25/2025 US, obste tric, bioph ysica l profi le + non-s tress test No observ ation record ed. [facility] [address], [place], [address], 05/25/2025 17:34:34 05/25/20 25 05/25/2025 US, obste tric, follo w-up No observ ation record ed. [email or web address] [address], [place], [address], 05/26/2025 14:44:53 05/25/2005/25/2025 non-s tress test No observ ation record ed. [email or web address] [address], [place], [address], 05/25/2025 18:39:52 05/25/20 non-s tress test No observ ation record ed. [email or web address] [address], [place], [address], 05/25/2025 17:32:07 05/30/2005/30/2025 US, obste tric, bioph ysica l profi le + non-s tress test No observ ation record ed. [email or web address] [address], [place], [address], 05/30/2025 12:42:17 05/30/2005/30/2025 US, obste tric, bioph ysica l profi le + non-s tress test No observ ation record ed. [email or web address] [address], [place], [address], 05/30/2025 17:35:43 05/30/2005/30/2025 non-s tress test No observ ation record ed. [email or web address] [address], [place], [address], 05/30/2025 13:00:42 05/30/20 non-s tress test No observ ation record ed. [email or web address] [address], [place], [address], 05/30/2025 13:02:59 06/06/2006/06/2025 US, obste tric, bioph ysica l profi le + non-s tress test No observ ation record ed. [email or web address] [address], [place], [address], 06/06/2025 14:28:11 06/06/2006/06/2025 US, obste tric, bioph ysica l profi le + non-s tress test No observ ation record ed. [email or web address] [address], [place], [address], 06/06/2025 15:10:23 06/07/2006/07/2025 non-s tress test No observ ation record ed. [email or web address] [address], [place], [address], 2025 20:27:42 06/07/20 non-s tress test No observ ation record ed. [email or web address] Not Available 2024 15:33:58 06/13/2006/13/2025 US, obste tric, follo w-up No observ ation record ed. [email or web address] [address], [place], [address], 06/14/2025 10:34:08 06/13/2006/13/2025 non-s tress test No observ ation record ed. PATRICIA [address], [place], [address], 06/19/2025 18:04:34 06/13/20 non-s tress test No observ ation record ed. [email or web address] [address], [place], [address], 06/13/2025 18:04:44 06/13/20 25 06/14/2025 US, obste tric, follo w-up No observ ation record ed. [email or web address] [address], [place], [address], 06/14/2025 13:38:03 06/13/20 25 06/14/2025 US, obste tric, bioph ysica l profi le + non-s tress test No observ ation record ed. [email or web address] [address], [place], [address], 06/14/2025 13:38:17 06/15/20 25 2025 non-s tress test No observ ation record ed. [facility] [address], [place], [address], 06/17/2025 09:42:27 06/20/2006/20/2025 US, obste tric, bioph ysica l profi le + non-s tress test No observ ation record ed. [email or web address] [address], [place], [address], 06/20/2025 13:28:54 06/20/20 25 06/20/2025 US, obste tric, follo w-up No observ ation record ed. [email or web address] [address], [place], [address], 06/20/2025 16:32:26 06/20/20 25 06/20/2025 non-s tress test No observ ation record ed. [email or web address] [address], [place], [address], 06/20/2025 18:00:22 06/20/20 non-s tress test No observ ation record ed. [email or web address] [address], [place], [address], 06/20/2025 17:57:42 06/27/20 25 06/27/2025 US, obste tric, bioph ysica l profi le No observ ation record ed. [email or web address] [address], [place], [address], 06/28/2025 11:16:29 06/27/2006/27/2025 US, obste tric, bioph ysica l profi le + non-s tress test No observ ation record ed. [facility] [address], [place], [address], 06/27/2025 18:49:37 06/27/2006/27/2025 non-s tress test No observ ation record ed. [facility] [address], [place], [address], 06/27/2025 18:50:27 06/27/20 non-s tress test No observ ation record ed. [email or web address] [address], [place], [address], 06/27/2025 12:29:10 Result Notes None recorded. Problems Name Problem SNOMED Code Status Onset Date Resolution Date Notes Provider Name and Address Organization Details Recorded Time Anemia 058521048 Completed Trino Moulton [facility], [facility] 4 13:00:34 Pre-ecla mpsia 544536095 Completed 37w Delivery , 2x/wk antenata l testing Trino Moulton [facility] 4 13:00:34 Group B Streptoc occus carrier 8888822399 103 Completed AMP in labor Trion Moulton [facility] 4 13:00:33 Pregnanc y 35817198 Completed 202210/27/2023 Jazz serrano [facility] 5 12:31:25 Syphilis 81697504 Completed 2022 no s/s, +fta abs- tx schedule d 06/05,, 2 Trino Moulton [facility], [facility] 4 13:00:34 Infectio n by Analia hidalgo [id number] Completed 2022 2/2 positive - tinidazo le tx 2/5 - RONEN in 4wks Trino Moulton [facility] 4 13:00:34 Gonorrhe a 02494314 Completed 2022 PA sent 08/20 for Ceftriax one - RONEN NEGATIVE Trino Moulton [facility] 4 13:00:34 Pregnanc y 70580314 Active 2024 Jazz Yonis [facility], [facility] 5 12:31:25 Past pregnanc y history of pre-ecla mpsia 4293524214 21342 Active 2024 recommen ded ASA previous delivery PTL 36w6d 10/08/23 EDC 10/30/23 antenata l testing Juana Warner [facility] 5 11:26:48 History of syphilis [id number] 660453 Active 2024 treated in previous pregnanc y titers 05/2023 1:32 decrease d to 1:8 03/17 [facility] 11:51:07 History of chlamydi al infectio n 398946533 Active 2024 Isidro Le MD [address], [place], [address], [place] [facility] 5 12:53:43 Iron deficien cy anemia 92978660 Active 2024 hgg decrease d 03-17 to 9-3 Iron infusion order faxed 05/04 _ pending insuranc e) Juana serrano [facility] 5 11:03:51 Finding of arrangem ent of fetus 53030823 Active 2024 Transver se Isidro Le MD [address], [place], [address], [facility] 17:33:30 Problem Notes None recorded. Medical [...] Address Organization Details Last Updated DateTime 05/30/2025 90177.339 43 g 14990.339 43 g 119/74 mm[Hg] 119/74 mm[Hg] Jazz Somers [facility] 05/30/2025 12:59:27 Social History Question Answer Notes LastModified by Organizat ion Details LastModified Time Tobacco Smoking Status Never Smoker Jacqueline Eunice serrano, [facility] 03/07/2023 14:21:17 Are You Blind Or Do You Have Difficulty Seeing? No Information n ot available 10/01/2023 What Is Your Level Of Caffeine Consumption? Occasional [email or web address] Information not available 10/01/2023 How Much Tobacco Do You Chew? None [email or web address] Information not available 10/01/2023 In The 14 Days Before Symptom Onset, Have You Had Close Contact With A Laboratory-confirm ed COVID-19 While That Case Was Ill? No [email or web address] Information n ot available 10/01/2023 In The 14 Days Before Symptom Onset, Have You Had Close Contact With A Person Who Is Under Investigation For COVID-19 While That Person Was Ill? No [email or web address] Information not available 10/01/2023 Have You Been To An Area Known To Be High Risk For COVID-19? No [email or web address] Information not available 10/01/2023 Are You Deaf Or Do You Have Serious Difficulty Hearing? No [email or web address] Information not available 10/01/2023 What Type Of Diet Are You Following? REGULAR [email or web address] Information n ot available 10/01/2023 What Is The Highest Grade Or Level Of School You Have Completed Or The Highest Degree You Have Received? [id number] [email or web address] Information not available 10/01/2023 Are There Any Guns Present In Your Home? No [email or web address] Information not available 10/01/2023 Do You Use Protection During Sex? Usually [email or web address] Information not available 10/01/2023 Do You Use Your Seat Belt Or Car Seat Routinely? Yes [email or web address] Information not available 10/01/2023 Do You Have Smoke And Carbon Monoxide Detectors In Your Home? No [email or web address] Information not available 10/01/2023 How Much Tobacco Do You Smoke? No [email or web address] Information not available 10/01/2023 Do You Use Sunscreen Routinely? No Information not available 10/01/2023 Have You Used IV Drugs? No [email or web address] Information not available 10/01/2023 Do You Have Difficulty Walking Or Climbing Stairs? No [email or web address] Information not available 10/01/2023 Sex: Unknown Functional Status Question Answer Note LastModified by Organizat ion Details LastModified Time Do you use any illicit or recreational drugs? No [email or web address] Information not available 10/01/2023 What is your level of alcohol consumption? None [email or web address] Information not available 10/01/2023 Are you able to walk independently without assistance or assistive devices? YESWOREST [email or web address] Information not available 10/01/2023 Are you able to care for yourself independently? Yes [email or web address] Information not available 10/01/2023 Do you have difficulty dressing, bathing, grooming, or toileting? No [email or web address] Information not available 10/01/2023 What is your exercise level? Moderate [email or web address] Information not available 10/01/2023 Mental Status Question Answer Note LastModified by Organization D etails LastModified Time Do you feel stressed (tense, restless, nervous, or anxious, or unable to sleep at night)? [id number] [email or web address] Information not available 10/01/2023 Family History Relationship [...] ICD10 Code Diagnosis IMO Codes Diagnosis Note [id number] MD Clay Aragon [address],[facility] [place] [address] 05/05/2025 16:07:26 05/05/2025 17:26:18 care status [id number] Z34.83 [id number] MD Clay Aragon [address] [address] 05/18/2025 15:16:07 05/18/2025 15:56:40 care: obstetric risk [id number] O09.293 Z3A.32 [id number] MD Clay Aragon [address],[place] [address] 05/18/2025 15:17:46 05/18/2025 16:51:15 care status [id number] Z34.83 [id number] MD Clay Aragon [address],[place] [address] 05/25/2025 15:01:48 05/25/2025 15:34:08 care: obstetric risk [id number] O09.293 O09.299 Z3A.33 [id number] Isidro Le MD [facility] [address],[place] [address] 05/25/2025 15:07:02 05/25/2025 17:32:49 Past history of pre-eclampsia [id number] Z87.59 [id number] Isidro Le MD [facility] [address],[place] [address] 05/25/2025 15:07:21 05/25/2025 17:10:12 care status [id number] Z34.83 [id number] Mita Tavera [facility] 2016 [address],[place] [address] 05/27/2025 09:25:56 05/27/2025 09:44:43 Backache [id number] M54.9 [id number] Acute headache [id number] R51.9 [id number] call this afternoon if no relief will try imitrex [id number] MD Clay Aragon [address],[place] [address] 05/30/2025 11:35:55 05/30/2025 12:10:04 care: obstetric risk [id number] O09.293 Z3A.34 [id number] MD Clay Aragon [address],[place] [address] 05/30/2025 11:36:32 05/30/2025 13:02:53 Pre-eclampsia [id number] O14.90 [id number] Isidro Le MD [facility] [address] [address] 05/30/2025 11:36:55 05/30/2025 13:17:39 care status [id number] Z34.83 [id number] Health Concerns Section Related Observation LastModified by Organization Detai ls LastModified Time None Recorded Concern Status LastModified by Organization Details LastModified Time None Recorded Payers Encounter Date Sequence Insurance Name Policy Number Policy Vital Covered Member ID Vital Member ID Guarantor Name 05/30/2025 1 [place] [facility] Gisela Bates [id number] Gisela Bates Notes Date Note Type Note Provider Name and Address Organization Details Recorded Time 05/30/2025 text/html Generic HPI TemplateReported by Patient Isidro Le MD [address], [place], [address], [facility] 05/30/2025 13:16:12 OBGyn Episode Ob Episode Information Episode Created Date Number of Fetuses Patient Bloodtype Patient rh Status Prepregnancy Weight lbs Domestic Partner Domestic Partner Phone Father Name Therapeutic Consultant Status 03/17/20 25 1 B Positive OPEN Fetus Data First Name Last Name Admitted to NICU Weight (g) Sex Living Outcome Pediatric Complications Fetus ID Race Codes Race Delivery Type [id number] Problems Problem Notes + RPR tx spoke with [facility] confirmed pt tx previous RPR 06/05/23, 06/12, & 06/19/23 titter 1:32 decreased to 1:8 per Pat antibody can be + but titer decreasing no tx unless pt sx's rash, lesions sx's rec tx if pt sx's schedule appt for evaluation. RPT labs @ 28wks , fax all labs to health dept [phone] . 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 03/31 pt denies sx's JGBilateral double renal artery Problem Name Start Date End Date Resolution Snomed Code Not e History of syphilis 03/17/2025 [id number] treated in previous pregnancytiters 05/2023 1:32 decreased to 1:8 03/17 Iron deficiency anemia 05/04/2025 [id number] hgg decreased to 9-3 Iron infusion order faxed 05/04 _ pending insurance) History of chlamydial infection 03/17/2025 [id number] Past history of pre-eclampsia 03/17/2025 [id number] recommended ASAprevious delivery PTL 36w6d 10/08/23 EDC 10/30/23 testing Finding of arrangement of fetus 06/13/2025 [id number] Transverse Jerome Calculation Initial Jerome Date Initial [...] Weight in lbs Pre/Post Dialysis Refused Weight 131.460080249421 BP Diastolic BP Location Tested BP Systolic [...] Weight in lbs Pre/Post Dialysis Refused Weight 131.643396218587 BP Diastolic BP Location Tested BP Systolic [...] Type Weight in lbs Pre/Post Dialysis Refused 133.522250071564 BP Diastolic BP Location Tested BP Systolic [...] Type Weight in lbs Pre/Post Dialysis Refused 135.15254118288 BP Diastolic BP Location Tested BP Systolic [...] Type Weight in lbs Pre/Post Dialysis Refused 135.60996401967 BP Diastolic BP Location Tested BP Systolic [...] Weight in lbs Pre/Post Dialysis Refused Weight 139.49885139506 BP Diastolic BP Location Tested BP Systolic BP Type 76 L arm 112 sitting Fetus Heart Rate Present Fetus Movement A Yes Comments Flowsheet Date 05/25/2025 Solorzano Score Blood Edema Fundus Height Fundus Units Glucose Ketones Leukocytes Nitrite Labor Signs Protein Cervic Dilation Cervic Effacement Cervic Station Type Weight in lbs Pre/Post Dialysis Refused Weight 149.23211755306 BP Diastolic BP Location Tested BP Systolic [...] Weight in lbs Pre/Post Dialysis Refused Weight 138.711158850705 BP Diastolic BP Location Tested BP Systolic BP Type 78 L arm 120 sitting Fetus Heart Rate Present A 139 Fetus Movement A Yes Comments was at [place] yesterday wi th ruiz and back pain [...] Type Weight in lbs Pre/Post Dialysis Refused 139.328133694890 BP Diastolic BP Location Tested BP Systolic BP Type 74 L arm 119 sitting Fetus Heart Rate Present Fetus Movement A Yes Comments Flowsheet Date 05/30/2025 Solorzano Score Blood Edema Fundus Height Fundus Units Glucose Ketones Leukocytes Nitrite Labor Signs Protein Cervic Dilation Cervic Effacement Cervic Station Type Weight in lbs Pre/Post Dialysis Refused 139.770115408524 BP Diastolic BP Location Tested BP Systolic [...] Type Weight in lbs Pre/Post Dialysis Refused 142.559679055468 BP Diastolic BP Location Tested BP Systolic [...] Type Weight in lbs Pre/Post Dialysis Refused 144.113827494506 BP Diastolic BP Location Tested BP Systolic BP Type 65 L arm 98 sitting Fetus Heart Rate Present Fetus Movement A Yes Comments Flowsheet Date 06/13/2025 Solorzano Score Blood Edema Fundus Height Fundus Units Glucose Ketones Leukocytes Nitrite Labor Signs Protein Cervic Dilation Cervic Effacement Cervic Station Type Weight in lbs Pre/Post Dialysis Refused 144.818983323878 BP Diastolic BP Location Tested BP Systolic [...] Weight in lbs Pre/Post Dialysis Refused Weight 144.28643260228 BP Diastolic BP Location Tested BP Systolic BP Type 64 L arm 104 sitting Fetus Heart Rate Present Fetus Movement A Yes Comments Flowsheet Date 06/20/2025 Solorzano Score Blood Edema Fundus Height Fundus Units Glucose Ketones Leukocytes Nitrite Labor Signs Protein Cervic Dilation Cervic Effacement Cervic Station Type Weight in lbs Pre/Post Dialysis Refused 144.441448170999 BP Diastolic BP Location Tested BP Systolic [...] Type Weight in lbs Pre/Post Dialysis Refused 147.908092223173 BP Diastolic BP Location Tested BP Systolic BP Type 70 L arm 104 sitting Fetus Heart Rate Present Fetus Movement A Yes Comments Flowsheet Date 06/27/2025 Solorzano Score Blood Edema Fundus Height Fundus Units Glucose Ketones Leukocytes Nitrite Labor Signs Protein Cervic Dilation Cervic Effacement Cervic Station Type Weight in lbs Pre/Post Dialysis Refused 147.869414676221 BP Diastolic BP Location Tested BP Systolic [...]
--- OUTSIDE RECORDS SUMMARY | 2025-07-01 06:20 | XMS_ITS | Clinical Summary ---
Author Organization [facility] Address [facility] [place] [address] Care Team Providers Care Golf [employer] Head Former Name Role Phone None, Provider MD Primary Care Provider Unavaila ble Allergies No known active allergies Medications vitamin ( PLUS) 27-1 MG tablet Take 1 tablet by mouth daily. Active Active Problems Problem Noted Date Diagnosed Date 26 weeks gestation of 07/29/2023 Estimated Date of Delivery Comme nts Yes 07/08/2025 Based on Other B asis Encounters Date Type Department Care Team Description 2025 10:28 PM CDT - 06/08/2025 12:29 AM CDT Hospital Encounter [facility] [place] [address] Patsy Rolon MD Contractions (Pt stated she has felt contractions starting at 2200 this evening five minutes apart. ) Discharge Disposition: Home or Self Care (Routine Discharge) 2025 Travel 05/12/2025 12:35 AM CDT - 05/12/2025 5:20 AM CDT Emergency [facility] [place] [address] Huyen Menjivar DO Cough; Shortness Of Breath ; Chest Pain Discharge Disposition: Home or Self Care (Routine Discharge) 05/12/2025 Travel 04/25/2025 7:22 PM CDT - 04/25/2025 10:13 PM CDT Hospital Encounter [facility] [place] [address] Corbin Huang MD (Abdominal pain started around 1800 today) Discharge Disposition: Home or Self Care (Routine Discharge) 04/25/2025 Travel from Last 3 Months Social History Tobacco Use Types Packs/Day Years Used Date Smoking Tobacco: Never Passive Smoke Exposure: Never Smokeless Tobacco: Never Tobacco Cessation:Counseling Given: Not Answered Alcohol Use Standard Drinks/Week Comments Not Currently 0 (1 standard drink = 0.6 oz pur e alcohol) Estimated Date of Delivery Comme nts Yes 07/08/2025 Based on Other B asis Sex and Gender Information Value Date Recorded Sex Assigned at Female 04/25/2025 7:36 PM CDT Legal Sex Female 7:53 PM CDT Gender Identity Female 04/25/2025 7:36 PM CDT Sexual Orientation Straight 04/25/2025 7: 36 PM CDT Last Filed Vital Signs Vital Sign Reading Time Taken Comments Blood Pressure 131/64 06/08/2025 12:00 AM CDT Pulse 100 06/08/2025 12:15 AM CDT Temperature 36.8 C (98.3 F) 2025 10:33 PM CDT Respiratory Rate 18 2025 10:33 PM CDT Oxygen Saturation 100% 2025 11:10 PM CDT Inhaled Oxygen Concentration - - Weight 61.7 kg (136 lb) 05/12/2025 12:29 AM CDT Height 162.6 cm (5' 4) 05/12/2025 12:29 AM CDT Body Mass Index 23.34 05/12/2025 12:29 AM CDT Plan of Treatment Health Maintenance Due Date Last Done Comments Annual Physical 2006 HPV Vaccines (2 - 2-dose series) 10/01/2018 03/31/2018 Meningococcal B Vaccine (1 of 2 - Standard) 2019 COVID-19 Vaccine ( - season) 2025 DTaP, Tdap and Td Vaccines (7 - Td or Tdap) 05/02/2025 05/02/2015, 04/13/2009, 12/10/2004, Additional history exists Influenza Adult (#1) 2025 Chlamydia Screening Females ages 16-24 06/06/2026 06/06/2025, 03/29/2025, 09/16/2023, Additional history exists Cervical Cancer Screening Pap Smear (Age 21 to 29) Every 3 Years 06/06/2028 06/06/2025, 03/29/2025, 09/16/2023 Cervical Cancer Screening 06/06/2028 Hepatitis B Vaccines Completed 03/19/2004, 2003, 2003 Pneumococcal Vaccine: Pediatrics (0 to 5 Years) and At-Risk Patients (6 to 49 Years) Aged Out 09/08/2004, 2003, 2003, Additional history exists No longer eligible based on patient's age to complete this topic Meningococcal Vaccine Aged Out 05/02/2015 No milagro gabriel eligible based on patient's age to complete this topic Hepatitis C Completed 03/17/2025 Hepatitis A Vaccines Aged Out No long er eligible based on patient's age to complete this topic RSV Immunization or 60+ Years (No Doses Required) Completed RSV Immunizations Under 20 Months Aged Out No longer eligible based on patient's age to complete this topic Procedures Procedure Name Priority Date/Time Associated Diagnosis Comments NONSTRESS TEST Routine 2025 11:27 PM CDT URINE BACTERIA CULTURE STAT 11:22 PM CDT URINALYSIS STAT 2025 11:22 PM CDT PLACENTAL ALPHA MICROGLOBULIN-1 Routine 2025 11:14 PM CDT NONSTRESS TEST STAT 2025 11:02 PM CDT CTA CHEST PE PROTOCOL STAT 05/12/2025 4:28 AM CDT POCT URINE (BACK OFFICE) STAT 05/12/2025 1:47 AM CDT HC URINALYSIS AUTO W/O MICRO STAT 05/12/2025 1:37 AM CDT ECG 12-LEAD STAT 05/12/2025 12:30 AM CDT HC MAGNESIUM STAT 05/12/2025 12:27 AM CDT HC TROPONIN QN STAT 05/12/2025 12:27 AM CDT HC COMPREHENSIVE METABOLIC PANEL STAT 05/12/2025 12:27 AM CDT HC CBC AUTO W/AUTO DIFF STAT 05/12/2025 12:27 AM CDT HC CBC AUTO W/AUTO DIFF Routine 04/25/2025 8:48 PM CDT HC COMPREHENSIVE METABOLIC PANEL Routine 04/25/2025 8:48 PM CDT PROTEIN CREAT RATIO URINE Routine 04/25/2025 7:59 PM CDT HC URINALYSIS AUTO W/O MICRO Routine 04/25/2025 7:59 PM CDT CHLAMYDIA GC RNA STAT 07/29/2023 2:15 PM 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) from Last 3 Months or Most Recently Relevant to Health Maintenance Results * nonstress test (2025 11:27 PM CDT) Narrative Patsy Rolon MD - 2025 11:27 PM CDT Patsy Rolon MD 06/08/2025 12:39 AM Non-Stress Test Indication: rule out uterine contractions Gestational Age: 35w4d Baseline: 135 bpm Variability: moderate Accelerations: present Decelerations: absent TOCO: quiet Interpretation: NST reactive Recommendation(s): Discharge home with precautions Comments: Start: 2229 End: 14 I personally reviewed the non-stress test strips PER GRAY DO us Per Gray DO OB GYNE ORDERABLES Final Result * (ABNORMAL) URINALYSIS (2025 11:22 PM CDT) Only the most recent of3 resultswithin the time period is included. SPECIMEN TYPE URINE CLEAN CATCH 2025 11:22 PM T [facility] COLOR (U) LIGHT YELLOW 06/08/2025 12:17 AM T [facility] TRANSPARENCY CLEAR 06/08/2025 12:17 AM T [facility] SPECIFIC GRAVITY (U) 1.006 1.001 - 1.030 06/08/2025 12:17 AM T [facility] U PH 7.0 5.0 - 9.0 06/08/2025 12:17 AM T [facility] LEUKOCYTES (U) 75(A) NEGATIVE 06/08/2025 12:17 AM T [facility] NITRITES NEGATIVE NEGATIVE 06/08/2025 12:17 AM T [facility] PROTEIN RANDOM (U) NEGATIVE <30 MG/DL 06/08/2025 12:17 AM T [facility] GLUCOSE (U) NORMAL NORMAL MG/DL 06/08/2025 12:17 AM T [facility] KETONES MG/DL (U) NEGATIVE NEGATIVE MG/DL 06/08/2025 12:17 AM T [facility] UROBILINOGEN 3.0(A) NORMAL MG/DL 06/08/2025 12:17 AM T [facility] BILIRUBIN (U) NEGATIVE NEGATIVE MG/DL 06/08/2025 12:17 AM T [facility] BLOOD (U) NEGATIVE NEGATIVE 06/08/2025 12:17 AM T [facility] WBC/HPF 3 <6 /HPF 06/08/2025 12:17 AM T [facility] RBC/HPF 2 <6 /HPF 06/08/2025 12:17 AM T [facility] BACTERIA (U) RARE(A) NONE /HPF 06/08/2025 12:17 AM CDT [facility] SQUAMOUS EPITHELIALS RARE /HPF 06/08/2025 12:17 AM CDT [facility] URINE SPECIMEN OBTAINED BY CLEAN CATCH PROCEDURE / Unknown 2025 11:22 PM CDT us Patsy Rolon MD URINE ORDERABLES Final Result [facility] [address] [place] [address], [place] [phone] * CULTURE URINE (2025 11:22 PM CDT) SPEC DESCRIPTION URINE CLEAN CATCH 2025 11:22 PM CDT [facility] SPECIAL REQUESTS NO SPECIAL REQUEST 2025 11:22 PM CDT [facility] CULTURE RESULT NO GROWTH 2 DAYS 06/10/2025 9:01 AM CDT [facility] URINE SPECIMEN OBTAINED BY CLEAN CATCH PROCEDURE / Unknown 2025 11:22 PM CDT 2025 11:51 PM CDT us Patsy Rolon MD MICROBIOLOGY - GENERAL ORDERABLES Final Result [facility] [address] [place] [address], [place] [phone] * PLACENTAL ALPHA MICROGLOBULIN-1 (2025 11:14 PM CDT) lot number [id number] KIT EXPIRATION DATE 10/11/2027 Internal Control: VALID VALID RUPTURE OF MEMBRANES Negative NEGATIVE VAGINAL SPECIMEN VAGINAL STRUCTURE / Unknown 2025 11:14 PM CDT Patsy Rolon MD BODY FLUIDS AND STOOLS ORDERABLES Final Result * CTA CHEST PE PROTOCOL (05/12/2025 4:28 AM CDT) Anatomical Region Laterality Modality Chest Computed Tomogra phy 05/12/2025 4:43 AM CDT Impressions 05/12/2025 4:49 AM CDT IMPRESSION: No acute or significant abnormality in the chest. No evidence of pulmonary emboli. Referred By: Interpreted By: Ro Gaytan MD, 05/12/2025 4:43 AM Narrative 05/12/2025 4:49 AM CDT [place] [address] EXAMINATION: CTA Chest with Intravenous Contrast, Axial Imaging with Coronal and Sagittal 2-D and 3-D MIP reconstructions as well as 3-D Volume Rendered reconstructions, with 3-D images obtained on an independent work station. 80 mL Isovue-370 was administered intravenously for the post-contrast images. This CT exam was performed using one or more of the following dose reduction techniques: automated exposure control, adjustment of the mA and/or kV according to patient size, the use of iterative reconstruction technique, use of ALARA (As Low As Reasonably Achievable) and/or use of Image Gently techniques. INDICATION: Shortness of breath, cough and congestion, chest discomfort. COMPARISON: None. FINDINGS: No evidence of pulmonary emboli. Aorta is age-appropriate without aneurysm. Heart size is normal with no significant pericardial effusion. Thyroid gland appears unremarkable. No pathologic adenopathy is seen in the chest. Tiny 3 mm pleural-based nodule along the lateral right minor fissure on axial image 71 is consistent with a benign perifissural lymph node; no follow-up imaging is recommended. No acute infiltrate, consolidation, pleural effusion, or pneumothorax. Limited included upper abdominal organs are unremarkable. Linear density in the proximal stomach is likely from an ingested radiopaque medication. No acute osseous abnormality. Procedure Note Gaytan, Ro K, MD - 05/12/2025 [facility] [address] [place], [place] [address] EXAMINATION: CTA Chest with Intravenous Contrast, Axial Imaging withCoronal and Sagittal 2-D and 3-D MIP reconstructions as well as 3-D VolumeRendered reconstructions, with 3-D images obtained on an independent workstation. 80 mL Isovue-370 was administered intravenously for thepost-contrast images. This CT exam was performed using one or more of the following dosereduction techniques: automated exposure control, adjustment of the mAand/or kV according to patient size, the use of iterative reconstructiontechnique, use of ALARA (As Low As Reasonably Achievable) and/or use ofImage Gently techniques. INDICATION: Shortness of breath, cough and congestion, chest discomfort. COMPARISON: None. FINDINGS: No evidence of pulmonary emboli. Aorta is age-appropriate withoutaneurysm. Heart size is normal with no significant pericardial effusion.Thyroid gland appears unremarkable. No pathologic adenopathy is seen inthe chest. Tiny 3 mm pleural- based nodule along the lateral right minorfissure on axial image 71 is consistent with a benign perifissural lymphnode; no follow-up imaging is recommended. No acute infiltrate,consolidation, pleural effusion, or pneumothorax. Limited included upper abdominal organs are unremarkable. Linear densityin the proximal stomach is likely from an ingested radiopaque medication.No acute osseous abnormality. IMPRESSION: No acute or significant abnormality in the chest. No evidence of pulmonaryemboli. Referred By: Interpreted By: Ro Gaytan MD, 05/12/2025 4:43 AM Huyen Menjivar DO CT Final Result * (ABNORMAL) POCT urine (05/12/2025 1:47 AM CDT) URINE HCG TEST POSITIVE(A ) Internal Control: VALID 05/12/2025 1:47 AM CDT us Miguel Allred NP POINT OF CARE TEST ORDERABLES Final Result * ECG 12 lead (05/12/2025 12:30 AM CDT) 05/12/2025 12:3 0 AM CDT Narrative [facility] - 05/12/2025 12:[address] 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 [facility] GLUCOSE 94 70 - 99 MG/DL 05/12/2025 1:22 AM T [facility] BUN 5(L) 7 - 18 MG/DL 05/12/2025 1:22 AM T [facility] CREATININE S/P/B 0.61 0.55 - 1.02 MG/DL 05/12/2025 1:22 AM T [facility] SODIUM S/P/B 138 136 - 145 MMOL/L 05/12/2025 1:22 AM T [facility] POTASSIUM S/P/B 3.2(L) 3.5 - 5.1 MMOL/L 05/12/2025 1:22 AM T [facility] CHLORIDE S/P/B 108 97 - 115 MMOL/L 05/12/2025 1:22 AM T [facility] CO2 23.9 21 - 32 MMOL/L 05/12/2025 1:22 AM T [facility] CALCIUM S/P/B 8.3(L) 8.5 - 10.1 MG/DL 05/12/2025 1:22 AM T [facility] BILIRUBIN TOTAL S/P/B 1.8(H) 0.2 - 1.2 MG/DL 05/12/2025 1:22 AM T [facility] Comment: THIS ASSAY IS NOT RECOMMENDED FOR PATIENTS UNDERGOING TREATMENT WITH ELTROMBOPAG DUE TO THE POTENTIAL FOR FALSELY ELEVATED RESULTS. TOTAL PROTEIN S/P/B 6.1(L) 6.4 - 8.2 G/DL 05/12/2025 1:22 AM T [facility] ALBUMIN S/P/B 2.2(L) 3.4 - 5.0 G/DL 05/12/2025 1:22 AM T [facility] AST 12(L) 15 - 37 U/L 05/12/2025 1:22 AM CDT [facility] ALT 16 14 - 55 U/L 05/12/2025 1:22 AM CDT [facility] ALKALINE PHOSPHATASE S/P/B 96 50 - 136 U/L 05/12/2025 1:22 AM CDT [facility] ANION GAP 6.1 2 - 10 MMOL/L 05/12/2025 1:22 AM CDT [facility] BUN CREATININE RATIO 8.2 6 - 26 05/12/2025 1:22 AM CDT [facility] A/G RATIO 0.6(L) 1.0 - 2.0 RATIO 05/12/2025 1:22 AM CDT [facility] GFR ESTIMATE >90 >90 ML/MIN/1.7 3 M2 05/12/2025 1:22 AM CDT [facility] Comment: NOTE: eGFR is not calculated for patients <18 years of age or gender unknown. This is an estimated GFR calculation using the new CKD EPI creatinine equation without race and so does not require a correction factor for race. This estimated GFR should not be used for calculating drug doses. 05/12/2025 12:2 7 AM CDT Miguel Allred NP LABORATORY Final Result [facility] [address] [place] [address], [place] [phone] * (ABNORMAL) CBC W/DIFF AUTOMATED (05/12/2025 12:27 AM CDT) Only the most recent of2 resultswithin the time period is included. WBC 5.93 4.5 - 11.0 x10'3/uL 05/12/2025 1:03 AM CDT [facility] RBC 2.96(L) 4.20 - 5.40 x10'6/uL 05/12/2025 1:03 AM CDT [facility] HGB 8.3(L) 12.0 - 16.0 G/DL 05/12/2025 1:03 AM CDT [facility] HCT 24.9(L) 38.0 - 48.0 % 05/12/2025 1:03 AM CDT [facility] MCV 84.1 81.0 - 99.0 FL 05/12/2025 1:03 AM CDT [facility] MCH 28.0 27.0 - 31.0 PG 05/12/2025 1:03 AM CDT [facility] MCHC 33.3 32.0 - 36.0 G/DL 05/12/2025 1:03 AM CDT [facility] RDW 14.8(H) 11.5 - 14.5 % 05/12/2025 1:03 AM CDT [facility] PLT 246 130 - 400 x10'3/uL 05/12/2025 1:03 AM T [facility] MPV 9.3 9.3 - 12.2 FL 05/12/2025 1:03 AM T [facility] DIFFERENTIAL TYPE AUTOMATED DIFFERENTIAL 05/12/2025 1:03 AM CDT [facility] NEUTROPHILS % 66.8 % 05/12/2025 1:03 AM CDT [facility] LYMPHOCYTES % 16.2 % 05/12/2025 1:03 AM CDT [facility] MONOCYTES % 9.1 % 05/12/2025 1:03 AM CDT [facility] EOSINOPHILS 4.2 % 05/12/2025 1:03 AM CDT [facility] BASOPHILS 0.5 % 05/12/2025 1:03 AM CDT [facility] IMMATURE GRANS % 3.2 % 05/12/20 1:03 AM CDT [facility] ABS. NEUTROPHILS 3.96 1.80 - 7.70 x10'3/uL 05/12/2025 1:03 AM CDT [facility] ABS. LYMPHOCYTES 0.96(L) 1.00 - 4.80 x10'3/uL 05/12/2025 1:03 AM CDT [facility] ABS. MONOCYTES 0.54 0.24 - 0.86 x10'3/uL 05/12/2025 1:03 AM CDT [facility] ABS. EOSINOPHILS 0.25 0.04 - 0.36 x10'3/uL 05/12/2025 1:03 AM CDT [facility] ABS. BASOPHILS 0.03 0.01 - 0.08 x10'3/uL 05/12/2025 1:03 AM CDT [facility] ABS. IMMATURE GRANULOCYTES 0.19 0.00 - 0.49 x10'3/uL 05/12/2025 1:03 AM CDT [facility] 05/12/2025 12:2 7 AM CDT Miguel Allred NP LABORATORY Final Result [facility] [address] [place] [address], * TROPONIN, QUANT (05/12/2025 12:27 AM CDT) TROPONIN I HIGH SENSITIVITY <3 <54 ng/L 05/12/2025 1:22 AM CDT [facility] Comment: HIGH DOSES OF BIOTIN, TROPONIN-SPECIFIC AUTOANTIBODIES, AND ANTIBODY THERAPY CONTAINING HAMA MAY INTERFERE WITH THIS TEST RESULT. CORRELATION TO CLINICAL HISTORY AND PRESENTATION RECOMMENDED. 05/12/2025 12:2 7 AM CDT Miguel Allred SURGICAL ASSIST LABORATORY Final Result Performing Organization Address City/[facility] Co de Phone Number [facility] [address] [place] [address], [place] [phone] * MAGNESIUM (05/12/2025 12:27 AM CDT) MAGNESIUM 1.8 1.8 - 2.4 MG/DL 05/12/2025 1:22 AM CDT [facility] 05/12/2025 12:2 7 AM CDT Miguel Allred SURGICAL ASSIST LABORATORY Final Result Performing Organization Address [facility] de Phone Number [facility] [address] [place] [address], [place] [phone] * (ABNORMAL) PROTEIN CREAT RATIO URINE (04/25/2025 7:59 PM CDT) PROTEIN URINE TOTAL RANDOM 12.5(H) <10 MG/DL 04/25/2025 8:35 PM CDT [facility] CREATININE (U) 33.2 28 - 217 MG/DL 04/25/2025 8:35 PM CDT [facility] PROTEIN/CREATIN INE RATIO 0.4 04/25/2025 8:35 PM CDT [facility] URINE SPECIMEN / Unknown 04/25/2025 7:59 PM CDT us Corbin Huang MD URINE ORDERABLES Final Resul t Performing Organization Address City/[facility] Co de Phone Number [facility] [address] [place] [address], [place] [phone] * (ABNORMAL) CHLAMYDIA GC RNA (07/29/2023 2:15 PM TILE SETTER SUPERVISOR) SPEC DESCRIPTION URINE VOIDED 2022 2:28 PM TILE SETTER SUPERVISOR [facility] CHLAMYDIA RNA TMA NEGATIVE NEGATIVE 023 4:28 AM TILE SETTER SUPERVISOR [facility] Comment:PERFORMED BY NUCLEIC ACID AMPLIFICATION N.GONORRHOEAE RNA TMA POSITIVE(A) NEGATIVE 07/31/2023 4:28 AM TILE SETTER SUPERVISOR [facility] Comment:PERFORMED BY NUCLEIC ACID AMPLIFICATION URINE SPECIMEN / Unknown 07/29/2023 2:15 PM TILE SETTER SUPERVISOR us Porter Quezada MD MICROBIOLOGY - GENERAL ORD ERABLES Final Result [facility] [address] [place] [address], [place] [phone] [facility] [address] [place] [address], [place] [phone] from Last 3 Months or Most Recently Relevant to Health Maintenance Insurance [address] [address] MEDICAID MEDICAID Care Teams Golf [employer] Head Former Relationship Specialty Start Date End Date None, Provider, PCP - General UNKNOWN PHYSICIAN SPECIALTY 07/29/23
--- OUTSIDE RECORDS SUMMARY | 2025-07-01 06:20 | XMS_ITS | Continuity of Care Document ---
Author Organization [facility] Address [address] [place] [address] [place] [address] Assessment No assessment recorded. Plan of Treatment [...] obstetr ic, follow- up 2024 025 [email or web address] [address], [address], [place], [address], 06/14/2025 09:53:11 US, obstetr ic, biophys ical profile + non-str ess test 2024 025 PATRICIA [address], [address], [place], [address], 06/14/2025 13:38:16 Medication Orders None recorde d. Patient TargetsNo [...] Resul ting Lab: [facility] [address] [facility] [address] Tel: CULTU RE ----- ----- ----- --- No growt h in 1 day (dete ction level of 10,00 0 colon ies / ml.) Not Available [facility] (Lab) [address] [facility], [place], [address], 03/19/2025 07:23:20 03/17/20 25 03/17/2025 CBC W/DIF F WBC 5.0 10'3/ uL 3.5-10 .5 Not Available [facility] (Lab) [address] [place], [address], 03/21/2025 14:27:06 03/17/20 25 03/17/2025 CBC W/DIF F RBC 3.57 10'6/ uL (based on docume nted legal sex) 3.80-5 .20 low Not Available [facility] (Lab) [address] [place], [address], 03/21/2025 14:27:06 03/17/20 25 03/17/2025 CBC W/DIF F HGB 10.5 g/dL (based on docume nted legal sex) 11.6-1 5.4 low Not Available [facility] (Lab) [address] [place], [address], 03/21/2025 14:27:06 03/17/20 25 03/17/2025 CBC W/DIF F HCT 30.2 % (based on docume nted legal sex) 34.0-4 5.0 low Not Available [facility] (Lab) [address] [facility], [place], [address], 03/21/2025 14:27:06 03/17/20 25 03/17/2025 CBC W/DIF F MCV 84.6 fL 80.0-9 9.0 Not Available [facility] (Lab) [address], [place], [address], 03/21/2025 14:27:06 03/17/20 25 03/17/2025 CBC W/DIF F MCH 29.4 pg 27.0-3 4.0 Not Available [facility] (Lab) [address], [place], [address], 03/21/2025 14:27:06 03/17/20 25 03/17/2025 CBC W/DIF F MCHC 34.8 g/dL 32.0-3 5.5 Not Available [facility] (Lab) [address] [facility], [place], [address], 03/21/2025 14:27:06 03/17/20 25 03/17/2025 CBC W/DIF F RDW 13.3 % 11.0-1 5.0 Not Available [facility] (Lab) [address] [facility], [place], [address], 03/21/2025 14:27:06 03/17/20 25 03/17/2025 CBC W/DIF F plt 235 10'3/ uL 150-40 0 Not Available [facility] (Lab) [address] [facility], [place], [address], 03/21/2025 14:27:06 03/17/20 25 03/17/2025 CBC W/DIF F MPV 10.4 fL 8.8-12 .1 Not Available [facility] (Lab) [address], [place], [address], 03/21/2025 14:27:06 03/17/20 25 03/17/2025 CBC W/DIF F NRBC's 0.0 % 0.0 Not Available [facility] (Lab) [address], [place], [address], 03/21/2025 14:27:06 03/17/20 25 03/17/2025 CBC W/DIF F absolute NRBCs 0.0 10'3/ uL no refere nce range establ ished Not Available [facility] (Lab) [address], [place], [address], 03/21/2025 14:27:06 03/17/20 25 03/17/2025 CBC W/DIF F neutrophils 72.4 % 34.0-7 3.0 Not Available [facility] (Lab) [address], [place], [address], 03/21/2025 14:27:06 03/17/20 25 03/17/2025 CBC W/DIF F lymphocytes 14.4 % 15.0-5 0.0 low Not Available [facility] (Lab) [address], [place], [address], 03/21/2025 14:27:06 03/17/20 25 03/17/2025 CBC W/DIF F monocytes 6.6 % 1.0-15 .0 Not Available [facility] (Lab) [address], [place], [address], 03/21/2025 14:27:06 03/17/20 25 03/17/2025 CBC W/DIF F eosinophils 5.2 % 0.0-8. 0 Not Available [facility] (Lab) [address] [place], [address], 03/21/2025 14:27:06 03/17/20 25 03/17/2025 CBC W/DIF F basophils 0.4 % 0.0-2. 0 Not Available [facility] (Lab) [address], [place], [address], 03/21/2025 14:27:06 03/17/20 25 03/17/2025 CBC W/DIF [...] separ ately if prese nt. Not Available [facility] (Lab) [address], [place], [address], 03/21/2025 14:27:06 03/17/20 25 03/17/2025 CBC W/DIF F absolute neutrophils 3.6 10'3/ uL 1.5-8. 0 Not Available [facility] (Lab) [address], [place], [address], 03/21/2025 14:27:06 03/17/20 25 03/17/2025 CBC W/DIF F absolute lymphocytes 0.7 10'3/ uL 1.0-4. 0 low Not Available [facility] (Lab) [address], [place], [address], 03/21/2025 14:27:06 03/17/20 25 03/17/2025 CBC W/DIF F absolute monocytes 0.3 10'3/ uL 0.2-1. 0 Not Available [facility] (Lab) [address] , [place], [address], 03/21/2025 14:27:06 03/17/20 25 03/17/2025 CBC W/DIF F absolute eosinophils 0.3 10'3/ uL 0.0-0. 6 Not Available [facility] (Lab) [address], [place], [address], 03/21/2025 14:27:06 03/17/20 25 03/17/2025 CBC W/DIF F absolute basophils 0.0 10'3/ uL 0.0-0. 3 Not Available [facility] (Lab) [address] [facility], [place], [address], 03/21/2025 14:27:06 03/17/20 25 03/17/2025 CBC W/DIF F absolute immature granulocytes 0.1 10'3/ uL 0.00-0 .10 Refer ence range s for nonbi nary/ inter sex or unspe cifie d gende r patie nts have not been estab lishe d. Pleparish e refer to the davido wing table for range s estab lishe d for cisge nder patie nts and evalu ate in the clini smita ronaldo xt of the indiv idual patie nt: https ://la ayannaand book. nm.or g/gen derx Not Available [facility] (Lab) [address] [facility], [place], [address], 03/21/2025 14:27:06 03/17/2003/17/2025 HIV 1/2 ANTIG EN/AN TIBOD Y, REFLE X CONFI RMATI ON HIV antigen/anti body Nonrea ctive nonrea ctive HIV-1 antig en and HIV-1 /HIV- 2 antib odies were not detec jluis. No labor atory evide nce of HIV infec tion. Not Available [facility] (Lab) [address] [facility], [place], [address], 03/21/2025 14:27:06 03/17/2003/17/2025 HEPAT ITIS B SURFA CE ANTIG EN hepatitis B surface antigen Non-re active non-re active This assay was perfo rmed using [employer] ratio n reage nts and test kits. Value s obtai gayla with other assay metho ds or kits canno t be used inter lee eably . Not Available [facility] (Lab) [address] [facility], [place], [address], 03/21/2025 14:27:07 03/17/20 25 03/17/2025 HEPAT ITIS C ANTIB ELOISE SCREE N, REFLE X TO CONFI RMATI ON hepatitis C antibody Non-re active non-re active Antib odies to HCV Not Detec jluis, does not exclu de the possi bilit y of expos ure to HCV. Not Available [facility] (Lab) [address], [place], [address], 03/21/2025 14:27:07 03/17/20 25 03/17/2025 RUBEL LA IGG ANTIB ELOISE, QUANT rubella antibodies, IgG Reacti ve reacti ve Not Available [facility] (Lab) [address], [place], [address], 03/21/2025 14:27:08 03/17/20 25 03/17/2025 RUBEL LA IGG ANTIB ELOISE, QUANT rubella antibodies, IgG quant 14.2 IU/mL >=10 Non-r eacti ve (Non- Immun e) <10 IU/mL React reyna (Immu ne) > or = 10 IU/mL Not Available [facility] (Lab) [address], [place], [address], 03/21/2025 14:27:08 03/17/20 25 03/17/2025 TYPE/ RH/SC REEN ABO/Rh type B POS Not Available [facility] (Lab) [address], [place], [address], 03/21/2025 14:27:08 03/17/20 25 03/17/2025 TYPE/ RH/SC REEN antibody screen NEG Not Available [facility] (Lab) [address], [place], [address], 03/21/2025 14:27:08 03/17/20 25 03/17/2025 TYPE/ RH/SC REEN exp date 2024 23:59 Not Available [facility] (Lab) [address], [place], [address], 03/21/2025 14:27:08 03/17/20 25 03/17/2025 HEMOG LOBIN A1C hemoglobin A1C 4.5 % 4.0-5. 6 The Ameri can Diabe freda [employer] iatio n recom mends that a prima ry goal of thera py shoul d be a HBA1C of < 7% and that physi cians shoul d reeva luate the treat ment regim en in patie nts with HBA1C value s consi stent ly > 8%. <5.7% Evie l 5.7 - 6.4% Incre ased risk for diabe freda >=6.5 % Diagn ostic of diabe freda <7.0% Goal of thera py >8.0% Actio n sugge sted Not Available [facility] (Lab) [address] [facility], [place], [address], 03/21/2025 14:27:09 03/17/2003/17/2025 RPR SCREE N, REFLE X TITER /CONF [...] ion (TP-P A) testi ng. Not Available [facility] (Lab) [address] [facility], [place], [address], 03/21/2025 14:27:09 03/17/2003/17/2025 RPR SCREE N, REFLE X TITER /CONF IRMAT ION RPR titer 1:8 . none high Not Available [facility] (Lab) [address] [facility], [place], [address], 03/21/2025 14:27:09 03/17/2003/17/2025 SYPHI LIS ANTIB ELOISE, TREPO NEMA PALLI [...] fonseca is recom loren d to disti raymundouis h betwe en treat ed and untre ated syphi lis. For addit ional infor matio n on inter preta tion of the syphi lis rever se algor ithm and resul ts, see: https ://ganesh sena [employer] / it-mm files /Syph ilis_ Serol ogy_A lgori thm.p df ----- ----- ----- ----A DDITI ONAL INFOR MATIO N---- ----- ----- ----- This test is inten ded to be used as a confi rmato ry test on sampl es that have been teste d by [facility] syphi lis test. Test Perfo rmed by: [facility] [place] [address] , [place] [address] Lab Direc tor: Jay Manzano nn Ph.D. ; CLIA# [id number] Not Available [facility] (Lab) [address] [place], [address], 03/21/2025 14:27:10 03/29/20 25 03/29/2025 CT/GC AND TRICH OMONA S VAGIN SILVA (RRNA ), URINE chlamydia trachomatis, PCR Negati ve negati ve Not Available [facility] (Lab) [address] [place], [address], 03/30/2025 14:21:33 03/29/2003/29/2025 CT/GC AND TRICH OMONA S VAGIN SILVA (RRNA ), URINE neisseria gonorrhoeae, PCR Negati ve negati ve Not Available [facility] (Lab) [address] [place], [address], 03/30/2025 14:21:33 03/29/20 25 03/29/2025 CT/GC AND TRICH OMONA S VAGIN SILVA (RRNA ), URINE trichomonas vaginalis ribosomal RNA (rrna) Negati ve negati ve Not Available [facility] (Lab) [address] [facility], [place], [address], 03/30/2025 14:21:33 04/20/20 25 04/20/2025 HEMAT OCRIT (HCT) HCT 29.1 % (based on docume nted legal sex) 34.0-4 5.0 low Not Available [facility] (Lab) [address] [facility], [place], [address], 04/23/2025 15:25:44 04/20/20 25 04/20/2025 HEMOG LOBIN (HGB) HGB 9.3 g/dL (based on docume nted legal sex) 11.6-1 5.4 low Not Available [facility] (Lab) [address] [place], [address], 04/23/2025 15:25:45 04/20/20 25 04/20/2025 HIV 1/2 ANTIG EN/AN TIBOD Y, REFLE X CONFI RMATI ON HIV antigen/anti body Nonrea ctive nonrea ctive HIV-1 antig en and HIV-1 /HIV- 2 antib odies were not detec jluis. No labor atory evide nce of HIV infec tion. Not Available [facility] (Lab) [address] [place], [address], 04/23/2025 15:25:45 04/20/20 25 04/20/2025 RPR SCREE [...] ion (TP-P A) testi ng. Not Available [facility] (Lab) [address] [facility], [place], [address], 04/23/2025 15:25:46 04/20/2004/20/2025 RPR SCREE N, REFLE X TITER /CONF IRMAT ION RPR titer 1:8 . none high Not Available [facility] (Lab) [address] [facility], [place], [address], 04/23/2025 15:25:46 04/20/2004/20/2025 SYPHI LIS ANTIB ELOISE, [...] of the syphi lis rever se andres duranm and tahira bal, see: https ://ganesh leary [employer] / it-mm files /Syph ilis_ Serol ogy_A lgori thm.p df ----- ----- ----- ----A DDITI ONAL INFOR MATIO N---- ----- ----- ----- This test is inten ded to be used as a confi rmato ry test on sampl es that have been teste d by [facility] syphi lis test. Test Perfo rmed by: [facility] [place] [address], [place] [address] Lab Direc tor: Jay Manzano nn Ph.D. ; CLIA# [id number] Not Available [facility] (Lab) [address] [facility], [place], [address], 04/23/2025 15:25:46 05/27/20 25 05/27/2025 PROTE IN/CR EATIN INE RATIO , URINE creatinine, urine 123.0 mg/dL R-No refer ence range estab lishe d for this assay Not Available [facility] (Lab) [address] [facility], [place], [address], 05/28/2025 10:30:45 05/27/20 25 05/27/2025 PROTE IN/CR EATIN INE RATIO , URINE protein, urine 22 mg/dL R-No refer ence range estab lishe d for this assay Not Available [facility] (Lab) [address] [facility], [place], [address], 05/28/2025 10:30:45 05/27/20 25 05/27/2025 PROTE IN/CR [...] fican t prote inuri a. Not Available [facility] (Lab) [address] [facility], [place], [address], 05/28/2025 10:30:45 06/06/20 25 06/06/2025 CT/GC AND TRICH OMONA S VAGIN SILVA (RRNA ), URINE chlamydia trachomatis, PCR Negati ve negati ve Not Available [facility] (Lab) [address] [facility], [place], [address], 06/09/2025 16:13:50 06/06/20 25 06/06/2025 CT/GC AND TRICH OMONA S VAGIN SILVA (RRNA ), URINE neisseria gonorrhoeae, PCR Negati ve negati ve Not Available [facility] (Lab) [address] [facility], [place], [address], 06/09/2025 16:13:50 06/06/20 25 06/06/2025 CT/GC AND TRICH OMONA S VAGIN SILVA (RRNA ), URINE trichomonas vaginalis ribosomal RNA (rrna) Negati ve negati ve Not Available [facility] (Lab) [address] [facility], [place], [address], 06/09/2025 16:13:50 06/06/20 25 06/06/2025 CULTU RE: [...] t Abnor mal: No Resul ting Lab: [facility] [address] [facility] [address] Tel: CULTU RE ----- ----- ----- --- No Group B strep isola jluis at 2 days (shelia ctive broth enhan cemen t) Not Available [facility] (Lab) [address] [facility], [place], [address], 06/09/2025 16:13:50 03/17/20 25 03/17/2025 US, obste tric, 2nd or 3rd trime ster No observ ation record ed. [email or web address] [address], [place], [address], 03/17/2025 15:45:06 03/17/20 25 03/17/2025 US, obste tric, 2nd or 3rd trime ster No observ ation record ed. [email or web address] [place] [address], [place], [address], 03/17/2025 12:51:02 03/17/20 25 03/17/2025 US, obste tric, 2nd or 3rd trime ster No observ ation record ed. [email or web address] [address], [place], [address], 04/07/2025 21:57:11 03/17/20 25 03/17/2025 US, obste tric, 2nd or 3rd trime ster No observ ation record ed. [email or web address] [address], [place], [address], 03/17/2025 23:04:51 03/17/20 25 03/17/2025 US, obste tric, 2nd or 3rd trime ster No observ ation record ed. [email or web address] [address], [place], [address], 03/17/2025 15:45:46 03/17/20 25 03/17/2025 US, obste tric, 2nd or 3rd trime ster No observ ation record ed. [email or web address] [address], [place], [address], 03/18/2025 17:16:02 05/18/2005/18/2025 US, obste tric, follo w-up No observ ation record ed. [facility] [address], [place], [address], 05/18/2025 18:23:17 05/18/2005/18/2025 US, obste tric, follo w-up No observ ation record ed. [email or web address] [address], [place], [address], 05/20/2025 13:20:22 05/25/20 25 05/25/2025 , obste tric, bioph ysica l profi le + non-s tress test No observ ation record ed. [facility] [address], [place], [address], 05/25/2025 17:34:34 05/25/2005/25/2025 US, obste tric, follo w-up No observ ation record ed. [email or web address] [address] [address], [place], [address], 05/26/2025 14:44:53 05/25/2005/25/2025 non-s tress test No observ ation record ed. [email or web address] [place] [address], [place], [address], 05/25/2025 18:39:52 05/25/20 non-s tress test No observ ation record ed. [place] [address], [place], [address], 05/25/2025 17:32:07 05/30/2005/30/2025 , obste tric, bioph ysica l profi le + non-s tress test No observ ation record ed. [email or web address] [place] [address], [place], [address], 05/30/2025 12:42:17 05/30/2005/30/2025 US, obste tric, bioph ysica l profi le + non-s tress test No observ ation record ed. [email or web address] [address], [place], [address], 05/30/2025 17:35:43 05/30/2005/30/2025 non-s tress test No observ ation record ed. [email or web address] [address] [address], [place], [address], 05/30/2025 13:00:42 05/30/20 non-s tress test No observ ation record ed. [email or web address] [place] [address], [place], [address], 05/30/2025 13:02:59 06/06/2006/06/2025 US, obste tric, bioph ysica l profi le + non-s tress test No observ ation record ed. [email or web address] [address] [address], [place], [address], 06/06/2025 14:28:11 06/06/2006/06/2025 US, obste tric, bioph ysica l profi le + non-s tress test No observ ation record ed. [email or web address] [address], [place], [address], 06/06/2025 15:10:23 06/07/2006/07/2025 non-s tress test No observ ation record ed. [email or web address] [place] [address], [place], [address], 2025 20:27:42 06/07/20 non-s tress test No observ ation record ed. [email or web address] Not Available 2024 15:33:58 06/13/2006/13/2025 US, obste tric, follo w-up No observ ation record ed. [email or web address] [address], [place], [address], 06/14/2025 10:34:08 06/13/2006/13/2025 non-s tress test No observ ation record ed. PATRICIA [place] [address], [place], [address], 06/19/2025 18:04:34 06/13/20 non-s tress test No observ ation record ed. [email or web address] [place] [address], [place], [address], 06/13/2025 18:04:44 06/13/2006/14/2025 US, obste tric, follo w-up No observ ation record ed. [facility] [address], [place], [address], 06/14/2025 13:38:03 06/13/20 25 06/14/2025 US, obstjesús tric, bioph ysica l profi le + non-s tress test No observ ation record ed. [facility] [address], [place], [address], 06/14/2025 13:38:17 06/15/2006/07/2025 non-s tress test No observ ation record ed. [place] [id number], [place], [address], 06/17/2025 09:42:27 06/20/2006/20/2025 US, lucretia dimas, bioph ysica l profi le + non-s tress test No observ ation record ed. [email or web address] [address] [address], [place], [address], 06/20/2025 13:28:54 06/20/20 25 06/20/2025 US, obste tric, follo w-up No observ ation record ed. [facility] [address], [place], [address], 06/20/2025 16:32:26 06/20/2006/20/2025 non-s tress test No observ ation record ed. [email or web address] [place] [address], [place], [address], 06/20/2025 18:00:22 06/20/20 non-s tress test No observ ation record ed. [address] [address], [place], [address], 06/20/2025 17:57:42 06/27/20 25 06/27/2025 US, obste tric, bioph ysica l profi le No observ ation record ed. vida Dimase [address], [place], [address], 06/28/2025 11:16:29 06/27/20 25 06/27/2025 US, obste tric, bioph ysica l profi le + non-s tress test No observ ation record ed. [facility] [address], [place], [address], 06/27/2025 18:49:37 06/27/20 25 06/27/2025 non-s tress test No observ ation record ed. [facility] [address], [place], [address], 06/27/2025 18:50:27 06/27/20 non-s tress test No observ ation record ed. [email or web address] [place] [address], [place], [address], 06/27/2025 12:29:10 Result Notes None recorded. Problems Name Problem SNOMED Code Status Onset Date Resolution Date Notes Provider Name and Address Organization Details Recorded Time Anemia 605026131 Completed Trino [facility], [facility] 4 13:00:34 Pre-ecla mpsia 848651394 Completed 37w Delivery , 2x/wk antenata l testing [facility] 4 13:00:34 Group B Streptoc occus carrier 5183928765 103 Completed AMP in labor [facility]ino [facility] 4 13:00:33 Pregnanc y 08269812 Completed 202210/27/2023 [facility] 5 12:31:25 Syphilis 52281126 Completed 2022 no s/s, +fta abs- tx schedule d 06/05,, 2 Trino M[facility] 4 13:00:34 Infectio n by Trichomo gwen [id number] Completed 2022 2/2 positive - tinidazo le tx 2/5 - RONEN in 4wks Trino M[facility]ton [facility] 4 13:00:34 Gonorrhe a 69684182 Completed 2022 PA sent 08/20 for Ceftriax one - RONEN NEGATIVE [facility] 4 13:00:34 Pregnanc y 39004860 Active 2024 [facility], [facility] 5 12:31:25 Past pregnanc y history of pre-ecla mpsia 8191800082 60218 Active 2024 recommen ded ASA previous delivery PTL 36w6d 10/08/23 EDC 10/30/23 antenata l testing Juana Warner [facility] 5 11:26:48 History of syphilis 4659107512 583876 Active 2024 treated in previous pregnanc y titers 05/2023 1:32 decrease d to 1:8 03/17 Juana Warner maggie, [facility] 5 11:51:07 History of chlamydi al infectio n 492722911 Active 2024 Isidro Le MD [address], [place], [address], [place] [facility] 5 12:53:43 Iron deficien cy anemia 16102635 Active 2024 hgg decrease d 7-31 to 9-3 Iron infusion order faxed 05/04 _ pending insuranc jesús) Juana serrano, [facility] 11:03:51 Finding of arrangem ent of fetus 44545223 Active 2024 Transver se Isidro Le MD [address], [place], [address], [facility] 17:33:30 Problem Notes None recorded. Medical [...] Address Organization Details Last Updated DateTime 06/13/2025 99810.301 28 g 72672.301 28 g 98/65 mm[Hg] 98/65 mm[Hg] Jazz Somers [facility] 06/13/2025 18:02:09 Social History Question Answer Notes LastModified by Organizat ion Details LastModified Time Tobacco Smoking Status Never Smoker [email or web address]/07/2023 14:21:17 Are You Blind Or Do You Have Difficulty Seeing? No [email or web address] Information n ot available 10/01/2023 What Is Your Level Of Caffeine Consumption? Occasional [email or web address] Information not available 10/01/2023 How Much Tobacco Do You Chew? None [email or web address] Information not available 10/01/2023 In The 14 Days Before Symptom Onset, Have You Had Close Contact With A Laboratory-confirm ed COVID-19 While That Case Was Ill? No [email or web address] Information n ot available 10/01/2023 In The 14 Days Before Symptom Onset, Have You Had Close Contact With A Person Who Is Under Investigation For COVID-19 While That Person Was Ill? No [email or web address] Information not available 10/01/2023 Have You Been To An Area Known To Be High Risk For COVID-19? No [email or web address] Information not available 10/01/2023 Are You Deaf Or Do You Have Serious Difficulty Hearing? No [email or web address] Information not available 10/01/2023 What Type Of Diet Are You Following? REGULAR [email or web address] Information n ot available 10/01/2023 What Is The Highest Grade Or Level Of School You Have Completed Or The Highest Degree You Have Received? [id number] [email or web address] Information not available 10/01/2023 Are There Any Guns Present In Your Home? No Information not available 10/01/2023 Do You Use Protection During Sex? Usually [email or web address] Information not available 10/01/2023 Do You Use Your Seat Belt Or Car Seat Routinely? Yes [email or web address] Information not available 10/01/2023 Do You Have Smoke And Carbon Monoxide Detectors In Your Home? No [email or web address] Information not available 10/01/2023 How Much Tobacco Do You Smoke? No [email or web address] Information not available 10/01/2023 Do You Use Sunscreen Routinely? No [email or web address] Information not available 10/01/2023 Have You Used IV Drugs? No [email or web address] Information not available 10/01/2023 Do You Have Difficulty Walking Or Climbing Stairs? No [email or web address] Information not available 10/01/2023 Sex: Unknown Functional Status Question Answer Note LastModified by Organizat ion Details LastModified Time Do you use any illicit or recreational drugs? No [email or web address] Information not available 10/01/2023 What is your level of alcohol consumption? None Information not available 10/01/2023 Are you able to walk independently without assistance or assistive devices? YESWOREST [email or web address] Information not available 10/01/2023 Are you able to care for yourself independently? Yes [email or web address] Information not available 10/01/2023 Do you have difficulty dressing, bathing, grooming, or toileting? No [email or web address] Information not available 10/01/2023 What is your exercise level? Moderate [email or web address] Information not available 10/01/2023 Mental Status Question Answer Note LastModified by Organization D etails LastModified Time Do you feel stressed (tense, restless, nervous, or anxious, or unable to sleep at night)? [id number] [email or web address] Information not available 10/01/2023 Family History Relationship [...] ICD10 Code Diagnosis IMO Codes Diagnosis Note [id number] Isidro Le MD [place] [address] [address] 05/18/2025 15:16:07 05/18/2025 15:56:40 care: obstetric risk [id number] O09.293 Z3A.32 5242212 [id number] MD Clay Aragon [address],[place] [address] 05/18/2025 15:17:46 05/18/2025 16:51:15 care status 561674768 Z34.83 [id number] MD Clay Aragon [address],[place] [address] 05/25/2025 15:01:48 05/25/2025 15:34:08 care: obstetric risk 254663999 O09.293 O09.299 Z3A.33 [id number] MD Clay Aragon [address],[place] [address] 05/25/2025 15:07:02 05/25/2025 17:32:49 Past history of pre-eclampsia 1286421154 70264 Z87.59 [id number] [id number] MD Clay Aragon [address],[place] [address] 05/25/2025 15:07:21 05/25/2025 17:10:12 care status 938861081 Z34.83 [id number] Mita Tavera [facility] [address],[place] [address] 05/27/2025 09:25:56 05/27/2025 09:44:43 Backache 355974751 M54.9 [id number] Acute headache 719041851 R51.9 [id number] call this afternoon if no relief will try imitrex [id number] Isidro Le MD [place] [address],[place] [address] 05/30/2025 11:35:55 05/30/2025 12:10:04 care: obstetric risk 551013275 O09.293 Z3A.34 4884120 [id number] MD Clay Aragon [address],[place] [address] 05/30/2025 11:36:32 05/30/2025 13:02:53 Pre-eclampsia 643629988 O14.90 [id number] [id number] MD Clay Aragon [address],[place] [address] 05/30/2025 11:36:55 05/30/2025 13:17:39 care status 259844648 Z34.83 76890014 [id number] MD Clay Aragon [address],[place] [address] 06/06/2025 13:30:49 06/06/2025 14:28:09 care: obstetric risk 022774144 O09.293 Z3A.35 9009882 [id number] MD Clay Aragon [address],[place] [address] 06/06/2025 13:31:14 2025 10:42:54 Past history of pre-eclampsia 1102900242 01845 Z87.59 [id number] MD Clay Aragon [address],[place] [address] 06/06/2025 13:31:30 06/06/2025 15:34:03 care status 432075494 Z34.83 46235843 [id number] MD Clay Aragon [address],[place] [address] 06/13/2025 15:39:53 06/14/2025 09:09:52 care: obstetric risk 549030771 O09.293 Z3A.36 [id number] [id number] MD Clay JUÁREZ [address],[place] [address] 06/13/2025 15:40:02 06/14/2025 09:09:28 Past history of pre-eclampsia 9527750432 37119 Z87.59 [id number] [id number] MD Clay Aragon [address],[place] [address] 06/13/2025 15:40:14 06/13/2025 17:38:16 care status 572332538 Z34.83 [id number] Health Concerns Section Related Observation LastModified by Organization Detai ls LastModified Time None Recorded Concern Status LastModified by Organization Details LastModified Time None Recorded Payers Encounter Date Sequence Insurance Name Policy Number Policy Vital Covered Member ID Vital Member ID Guarantor Name 06/13/2025 1 [place] [employer] [facility] Gisela Bates [id number] Gisela Maxime Fitzgeraldver Notes Date Note Type Note Provider Name and Address Organization Details Recorded Time 06/13/2025 text/html Generic HPI TemplateReported by Patient Isidro Le MD [address], [place], [address], [facility] 06/13/2025 17:37:55 OBGyn Episode Ob Episode Information Episode Created Date Number of Fetuses Patient Bloodtype Patient rh Status Prepregnancy Weight lbs Domestic Partner Domestic Partner Phone Father Name Capacity Analyst Status 03/17/20 25 1 B Positive OPEN Fetus Data First Name Last Name Admitted to NICU Weight (g) Sex Living Outcome Pediatric Complications Fetus ID Race Codes Race Delivery Type [id number] Problems Problem Notes + RPR tx spoke with [facility] confirmed pt tx previous RPR 06/05/23, 06/12, & 06/19/23 titter 1:32 decreased to 1:8 per Pat antibody can be + but titer decreasing no tx unless pt sx's rash, lesions sx's rec tx if pt sx's schedule appt for evaluation. RPT labs @ 28wks , fax all labs to health dept [phone] . 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 03/31 pt denies sx's JGBilateral double renal artery Problem Name Start Date End Date Resolution Snomed Code Not e History of syphilis 03/17/2025 [id number] treated in previous pregnancytiters 05/2023 1:32 decreased to 1:8 03/17 Iron deficiency anemia 05/04/2025 52220507 hgg decreased to 9-3 Iron infusion order faxed 05/04 _ pending insurance) History of chlamydial infection 03/17/2025 [id number] Past history of pre-eclampsia 03/17/2025 [id number] recommended ASAprevious delivery PTL 36w6d 10/08/23 EDC 10/30/23 testing Finding of arrangement of fetus 06/13/2025 [id number] Transverse Jerome Calculation Initial Jerome Date Initial [...] Weight in lbs Pre/Post Dialysis Refused Weight 131.368180415922 BP Diastolic BP Location Tested BP Systolic [...] Weight in lbs Pre/Post Dialysis Refused Weight 131.815366445310 BP Diastolic BP Location Tested BP Systolic [...] Type Weight in lbs Pre/Post Dialysis Refused 133.694216084161 BP Diastolic BP Location Tested BP Systolic [...] Type Weight in lbs Pre/Post Dialysis Refused 135.27922771200 BP Diastolic BP Location Tested BP Systolic [...] Type Weight in lbs Pre/Post Dialysis Refused 135.52999640004 BP Diastolic BP Location Tested BP Systolic [...] Weight in lbs Pre/Post Dialysis Refused Weight 139.70747990502 BP Diastolic BP Location Tested BP Systolic BP Type 76 L arm 112 sitting Fetus Heart Rate Present Fetus Movement A Yes Comments Flowsheet Date 05/25/2025 Solorzano Score Blood Edema Fundus Height Fundus Units Glucose Ketones Leukocytes Nitrite Labor Signs Protein Cervic Dilation Cervic Effacement Cervic Station Type Weight in lbs Pre/Post Dialysis Refused Weight 149.86907832712 BP Diastolic BP Location Tested BP Systolic [...] Weight in lbs Pre/Post Dialysis Refused Weight 138.800057043146 BP Diastolic BP Location Tested BP Systolic BP Type 78 L arm 120 sitting Fetus Heart Rate Present A 139 Fetus Movement A Yes Comments was at [place] yesterday wi th ruiz and back pain [...] Type Weight in lbs Pre/Post Dialysis Refused 139.776151398599 BP Diastolic BP Location Tested BP Systolic BP Type 74 L arm 119 sitting Fetus Heart Rate Present Fetus Movement A Yes Comments Flowsheet Date 05/30/2025 Solorzano Score Blood Edema Fundus Height Fundus Units Glucose Ketones Leukocytes Nitrite Labor Signs Protein Cervic Dilation Cervic Effacement Cervic Station Type Weight in lbs Pre/Post Dialysis Refused 139.814255538508 BP Diastolic BP Location Tested BP Systolic [...] Type Weight in lbs Pre/Post Dialysis Refused 142.610150057369 BP Diastolic BP Location Tested BP Systolic [...] Type Weight in lbs Pre/Post Dialysis Refused 144.319748915786 BP Diastolic BP Location Tested BP Systolic BP Type 65 L arm 98 sitting Fetus Heart Rate Present Fetus Movement A Yes Comments Flowsheet Date 06/13/2025 Solorzano Score Blood Edema Fundus Height Fundus Units Glucose Ketones Leukocytes Nitrite Labor Signs Protein Cervic Dilation Cervic Effacement Cervic Station Type Weight in lbs Pre/Post Dialysis Refused 144.742478021037 BP Diastolic BP Location Tested BP Systolic [...] Weight in lbs Pre/Post Dialysis Refused Weight 144.04053513129 BP Diastolic BP Location Tested BP Systolic BP Type 64 L arm 104 sitting Fetus Heart Rate Present Fetus Movement A Yes Comments Flowsheet Date 06/20/2025 Solorzano Score Blood Edema Fundus Height Fundus Units Glucose Ketones Leukocytes Nitrite Labor Signs Protein Cervic Dilation Cervic Effacement Cervic Station Type Weight in lbs Pre/Post Dialysis Refused 144.716287913349 BP Diastolic BP Location Tested BP Systolic [...] Type Weight in lbs Pre/Post Dialysis Refused 147.297096328332 BP Diastolic BP Location Tested BP Systolic BP Type 70 L arm 104 sitting Fetus Heart Rate Present Fetus Movement A Yes Comments Flowsheet Date 06/27/2025 Solorzano Score Blood Edema Fundus Height Fundus Units Glucose Ketones Leukocytes Nitrite Labor Signs Protein Cervic Dilation Cervic Effacement Cervic Station Type Weight in lbs Pre/Post Dialysis Refused 147.608697981385 BP Diastolic BP Location Tested BP Systolic [...]
--- OUTSIDE RECORDS SUMMARY | 2025-07-01 06:20 | XMS_ITS | Data Portability ---
Author Organization [facility] Address [address] [place] [address] [place] [address] Assessment Encounter Date Assessment Date Assessment LastModified [...] d. Imaging non-str ess test 2024 025 [email or web address] [place], [address], [address], [place], [address], 06/27/2025 12:29:08 US, obstetr ic, biophys ical profile + non-str ess test 2024 025 PATRICIA [place], [address], [place], [address], 06/27/2025 18:49:37 non-str ess test 2024 025 [email or web address] [address], [address], [place], [address], 06/21/2025 08:20:28 US, obstetr ic, biophys ical profile + non-str ess test 2024 025 [email or web address] [place], [address], [place], [address], 06/20/2025 15:43:37 Medication Orders None recorde d. Patient TargetsNo targets recorded. Patient InstructionsNo instructions recorded. Reason for Referral None Reported. Results Created Date Observation Date Name Description Value Unit Range Abnormal Flag Note LastModifiedBy Organization Detail LastModifiedTime 05/27/2005/27/2025 PROTE IN/CR EATIN INE RATIO , URINE creatinine, urine 123.0 mg/dL R-No refer ence range estab lishe d for this assay Not Available [facility] (Lab) [address] [facility], [place], [address], 05/28/2025 10:30:45 05/27/20 25 05/27/2025 PROTE IN/CR EATIN INE RATIO , URINE protein, urine 22 mg/dL R-No refer ence range estab lishe d for this assay Not Available [facility] (Lab) [address] [facility], [place], [address], 05/28/2025 10:30:45 05/27/20 25 05/27/2025 PROTE IN/CR [...] fican t prote inuri a. Not Available [facility] (Lab) [address] , [place], [address], 05/28/2025 10:30:45 06/06/20 25 06/06/2025 CT/GC AND TRICH OMONA S VAGIN SILVA (RRNA ), URINE chlamydia trachomatis, PCR Negati ve negati ve Not Available [facility] (Lab) [address] [facility], [place], [address], 06/09/2025 16:13:50 06/06/20 25 06/06/2025 CT/GC AND TRICH OMONA S VAGIN SILVA (RRNA ), URINE neisseria gonorrhoeae, PCR Negati ve negati ve Not Available [facility] (Lab) [address] [facility], [place], [address], 06/09/2025 16:13:50 06/06/20 25 06/06/2025 CT/GC AND TRICH OMONA S VAGIN SILVA (RRNA ), URINE trichomonas vaginalis ribosomal RNA (rrna) Negati ve negati ve Not Available [facility] (Lab) [address] [facility], [place], [address], 06/09/2025 16:13:50 06/06/20 25 06/06/2025 CULTU RE: GROUP B STREP SCREE N, REFLE X SUSCE PTIBI LITY result report SEE RESULT S BELOW Test: Cultu re: Group B Strep , Refle x Susce ptibi lity ([facility] ) Speci men Sourc e: Vagin a/Rec brannon Speci men Type: Vagin al/Re ctal Speci men Date: 06/06 1619 Resul t Date: 06/09 1508 Resul t Statu s: Final resul t Abnor mal: No Resul ting Lab: [facility] [address] [facility] [address] Tel: CULTU RE ----- ----- ----- --- No Group B strep isola jluis at 2 days (shelia ctive broth enhan cemen t) Not Available [facility] (Lab) [address] [place], [address], 06/09/2025 16:13:50 05/25/2005/25/2025 US, obste tric, bioph ysica l profi le + non-s tress test No observ ation record ed. [email or web address] [place] [address], [place], [address], 05/25/2025 17:34:34 05/25/2005/25/2025 US, obste tric, follo w-up No observ ation record ed. Staci [address], [place], [address], 05/26/2025 14:44:53 05/25/2005/25/2025 non-s tress test No observ ation record ed. [email or web address] [place] [address], [place], [address], 05/25/2025 18:39:52 05/25/20 non-s tress test No observ ation record ed. [email or web address] [place] [address], [place], [address], 05/25/2025 17:32:07 05/30/2005/30/2025 US, obste tric, bioph ysica l profi le + non-s tress test No observ ation record ed. [email or web address] [place] [address], [place], [address], 05/30/2025 12:42:17 05/30/2005/30/2025 US, obste tric, bioph ysica l profi le + non-s tress test No observ ation record ed. [email or web address] [facility] [address], [place], [address], 05/30/2025 17:35:43 05/30/2005/30/2025 non-s tress test No observ ation record ed. [email or web address] [place] [address], [place], [address], 05/30/2025 13:00:42 05/30/20 non-s tress test No observ ation record ed. [email or web address] [place] [address], [place], [address], 05/30/2025 13:02:59 06/06/2006/06/2025 US, obste tric, bioph ysica l profi le + non-s tress test No observ ation record ed. [email or web address] [place] [address], [place], [address], 06/06/2025 14:28:11 06/06/2006/06/2025 US, obste tric, bioph ysica l profi le + non-s tress test No observ ation record ed. [email or web address] [address] [address], [place], [address], 06/06/2025 15:10:23 06/07/2006/07/2025 non-s tress test No observ ation record ed. [email or web address] [place] [address], [place], [address], 2025 20:27:42 06/07/20 non-s tress test No observ ation record ed. [email or web address] Not Available 2024 15:33:58 06/13/2006/13/2025 US, obste tric, follo w-up No observ ation record ed. [email or web address] [facility] [address], [place], [address], 06/14/2025 10:34:08 06/13/2006/13/2025 non-s tress test No observ ation record ed. PATRICIA [place] [address], [place], [address], 06/19/2025 18:04:34 06/13/20 non-s tress test No observ ation record ed. [email or web address] [place] [address], [place], [address], 06/13/2025 18:04:44 06/13/2006/14/2025 US, lucretia dimas follo w-up No observ ation record ed. [facility] [address], [place], [address], 06/14/2025 13:38:03 06/13/2006/14/2025 US, lucretia dimas, bioph ysica l profi le + non-s tress test No observ ation record ed. [facility] [address], [place], [address], 06/14/2025 13:38:17 06/15/2006/07/2025 non-s tress test No observ ation record ed. [facility] [address], [place], [address], 06/17/2025 09:42:27 06/20/2006/20/2025 US, lucretia dimas, bioph ysica l profi le + non-s tress test No observ ation record ed. [email or web address] [place] [address], [place], [address], 06/20/2025 13:28:54 06/20/2006/20/2025 US, obstjesús dimas follo w-up No observ ation record ed. Staci [address], [place], [address], 06/20/2025 16:32:26 06/20/20 25 06/20/2025 non-s tress test No observ ation record ed. [email or web address] [place] [address], [place], [address], 06/20/2025 18:00:22 06/20/20 25 non-s tress test No observ ation record ed. [address], [place], [address], 06/20/2025 17:57:42 06/27/20 25 06/27/2025 US, obste tric, bioph ysica l profi le No observ ation record ed. [email or web address] [facility] [address], [place], [address], 06/28/2025 11:16:29 06/27/20 25 06/27/2025 US, obste tric, bioph ysica l profi le + non-s tress test No observ ation record ed. [facility] [address], [place], [address], 06/27/2025 18:49:37 06/27/20 25 06/27/2025 non-s tress test No observ ation record ed. [facility] [address], [place], [address], 06/27/2025 18:50:27 06/27/20 25 non-s tress test No observ ation record ed. [address], [place], [address], 06/27/2025 12:29:10 Result Notes None recorded. Problems Name Problem SNOMED Code Status Onset Date Resolution Date Notes Provider Name and Address Organization Details Recorded Time Anemia 111243864 Completed Trino Moulton [facility], [facility] 13:00:34 Pre-ecla mpsia 185504883 Completed 37w Delivery , 2x/wk antenata l testing Trino Moulton [facility] 4 13:00:34 Group B Streptoc occus carrier 4564396643 103 Completed AMP in labor Trino Moulton [facility] 4 13:00:33 Pregnanc y 72533230 Completed 202210/27/2023 Jazz Somers [facility] 5 12:31:25 Syphilis 84686356 Completed 2022 no s/s, +fta abs- tx schedule d 06/05,, 2 Trino Moulton [facility] 4 13:00:34 Infectio n by Trichomo gwen [id number] Completed 2022 2/2 positive - tinidazo le tx 2/5 - RONEN in 4wks [facility] 4 13:00:34 Gonorrhe a 34522903 Completed 2022 PA sent 08/20 for Ceftriax one - RONEN NEGATIVE Trino Moulton [facility] 4 13:00:34 Pregnanc y 46432409 Active 2024 Jazz Somers [facility] 5 12:31:25 Past pregnanc y history of pre-ecla mpsia 7054469988 82845 Active 2024 recommen ded ASA previous delivery PTL 36w6d 10/08/23 EDC 10/30/23 antenata l testing Juaan Warner [facility] 5 11:26:48 History of syphilis 6977694271 419958 Active 2024 treated in previous pregnanc y titers 05/2023 1:32 decrease d to 1:8 03/17 Juana Warner [facility] 5 11:51:07 History of chlamydi al infectio n 505070612 Active 2024 Isidro Le MD [address], [place], [address], [facility] 5 12:53:43 Iron deficien cy anemia 74384463 Active 2024 hgg decrease d 7-31 to 9-3 Iron infusion order faxed 05/04 _ pending insuranc e) Juana serrano, [facility] 5 11:03:51 Finding of arrangem ent of fetus 61078141 Active 2024 Transver se Isidro Le MD [address], [place], [address], [facility] 5 17:33:30 Problem Notes None [...] Address Organization Details Last Updated DateTime 06/20/2025 30187.34722 g 104/64 mm[Hg] Jazz [facility] 06/20/2025 12:00:20 Date Recorded Body height Body mass index (BMI) Body weight Systolic And Diastolic Provider Name and Address Organization Details Last Updated DateTime 06/20/2025 165.1 cm 24 kg/m2 97611.3 g 104/64 mm[Hg] Christine Lamb [facility] 06/20/2025 17:55:46 Date Recorded Body weight Systolic And Diastolic Provider Name and Address Organization Details Last Updated DateTime 06/27/2025 91314.82344 g 104/70 mm[Hg] Jazz Yonis [facility] 06/27/2025 11:35:18 Date Recorded Body weight Systolic And Diastolic Provider Name and Address Organization Details Last Updated DateTime 06/27/2025 00241.35714 g 104/70 mm[Hg] Christine Lamb [facility] 06/27/2025 12:27:23 Social History Question Answer Notes LastModified by Organizat ion Details LastModified Time Tobacco Smoking Status Never Smoker Jacqueline Dawson maggie, [facility] 03/07/2023 14:21:17 Are You Blind Or Do You Have Difficulty Seeing? No Information n ot available 10/01/2023 What Is Your Level Of Caffeine Consumption? Occasional [email or web address] Information not available 10/01/2023 How Much Tobacco Do You Chew? None [email or web address] Information not available 10/01/2023 In The 14 Days Before Symptom Onset, Have You Had Close Contact With A Laboratory-confirm ed COVID-19 While That Case Was Ill? No [email or web address] Information n ot available 10/01/2023 In The 14 Days Before Symptom Onset, Have You Had Close Contact With A Person Who Is Under Investigation For COVID-19 While That Person Was Ill? No [email or web address] Information not available 10/01/2023 Have You Been To An Area Known To Be High Risk For COVID-19? No [email or web address] Information not available 10/01/2023 Are You Deaf Or Do You Have Serious Difficulty Hearing? No [email or web address] Information not available 10/01/2023 What Type Of Diet Are You Following? REGULAR [email or web address] Information n ot available 10/01/2023 What Is The Highest Grade Or Level Of School You Have Completed Or The Highest Degree You Have Received? [id number] Information not available 10/01/2023 Are There Any Guns Present In Your Home? No [email or web address] Information not available 10/01/2023 Do You Use Protection During Sex? Usually [email or web address] Information not available 10/01/2023 Do You Use Your Seat Belt Or Car Seat Routinely? Yes [email or web address] Information not available 10/01/2023 Do You Have Smoke And Carbon Monoxide Detectors In Your Home? No [email or web address] Information not available 10/01/2023 How Much Tobacco Do You Smoke? No [email or web address] Information not available 10/01/2023 Do You Use Sunscreen Routinely? No [email or web address] Information not available 10/01/2023 Have You Used IV Drugs? No [email or web address] Information not available 10/01/2023 Do You Have Difficulty Walking Or Climbing Stairs? No [email or web address] Information not available 10/01/2023 Sex: Unknown Functional Status Question Answer Note LastModified by Organizat ion Details LastModified Time Do you use any illicit or recreational drugs? No [email or web address] Information not available 10/01/2023 What is your level of alcohol consumption? None Information not available 10/01/2023 Are you able to walk independently without assistance or assistive devices? YESWOREST [email or web address] Information not available 10/01/2023 Are you able to care for yourself independently? Yes [email or web address] Information not available 10/01/2023 Do you have difficulty dressing, bathing, grooming, or toileting? No [email or web address] Information not available 10/01/2023 What is your exercise level? Moderate [email or web address] Information not available 10/01/2023 Mental Status Question Answer Note LastModified by Organization D etails LastModified Time Do you feel stressed (tense, restless, nervous, or anxious, or unable to sleep at night)? [id number] [email or web address] Information not available 10/01/2023 Family History Relationship [...] ICD10 Code Diagnosis IMO Codes Diagnosis Note [id number] Isidro Le MD [place] [address] [address] 03/07/2023 12:55:31 03/07/2023 13:39:54 screening 046032716 Z36.87 [id number] Isidro Le MD [place] [address],[facility] [address] 03/07/2023 12:59:26 03/07/2023 14:57:48 Nausea and vomiting 13529508 R11.2 Amenorrhea 04554717 N91. 2 THIS PATIENT IS A 17-YEAR-OL D FEMALE PRESENTS FOR AMENORRHEA . SHE HAS A POSITIVE TEST. ULTRASOUND REVEALED A 6 WEEK 1 DAY IUP WITH CARDIAC ACTIVITY. SHE IS IN COMPLAININ G OF NAUSEA TODAY. We agreed to prescribe medication for nausea. We talked about and care. Talked about precaution s for . We spent more than 20 minutes face-to-fa ce. More than 50% was counseling . She will follow-up 6 weeks. [id number] Isidro Le MD [place] [address] [address] 05/27/2023 10:55:41 05/27/2023 17:05:54 [id number] MD Clay Aragon [address],[place] [address] 05/27/2023 10:56:16 05/27/2023 13:25:49 Routine care 349791795 Z34.90 Vulvovaginitis 33960235 N76.0 [id number] MD Clay Aragon [address],[place] [address] 06/05/2023 10:51:33 06/05/2023 13:38:20 Syphilis 76958349 A53.9 [id number] MD Clay Aragon [address],[place] [address] 06/12/2023 16:05:55 06/12/2023 17:25:43 Syphilis 58806695 A53.9 Routine an tenatal care 498327725 Z34.90 [id number] MD Clay [place] [address],[place] [address] 06/12/2023 17:07:44 06/12/2023 18:18:31 screening for malformation 072346056 Z36.3 [id number] MD Clay [place] [address],[place] [address] 06/19/2023 10:35:47 06/19/2023 15:32:31 Syphilis 59888789 A53.9 [id number] MD Clay Aragon [address],[place] [address] 07/24/2023 14:24:34 07/24/2023 15:04:46 Anemia of 51539007 O99.019 Routine an tenatal care 576579339 Z34.90 [id number] MD Clay [facility] [address],[place] [address] 07/24/2023 14:48:04 07/24/2023 15:22:43 screening 439670355 Z36.2 Z3A.20 [id number] MD Clay [place] [address],[place] [address] 08/07/2023 12:41:31 08/10/2023 07:13:30 Vulvovaginitis 10336987 N76.0 Chlamydial infection 105 258329 A74.9 Routine an tenatal care 535935166 Z34.90 [id number] Isidro Le MD [place] [address],[place] [address] 08/21/2023 13:49:47 08/21/2023 14:41:30 Recurrent bacterial infection 842353278 A49.9 Routine an tenatal care 465155334 Z34.90 [id number] Isidro Le MD [place] [address],[place] [address] 09/02/2023 12:09:48 09/02/2023 12:39:29 condition affecting obstetrical care of mother 064050584 O99.893 Z3A.31 [id number] Isidro Le MD [place] [address],[place] [address] 09/02/2023 12:10:34 09/02/2023 13:29:13 Routine care 471611919 Z34.90 [id number] sIidro Le MD [place] [address],[place] [address] 09/16/2023 12:37:31 09/16/2023 13:29:46 Routine care 233343758 Z34.90 [id number] Isidro Le MD [place] [address],[place] [address] 10/01/2023 14:06:43 10/01/2023 14:40:27 Pre-existing maternal disease complicating 6242952050 6106 O99.891 Z3A.35 [id number] Mita Tavera [facility] [address],[place] [address] 10/01/2023 14:07:01 10/01/2023 15:21:53 Routine care 655209003 Z34.93 [id number] Isidro Le MD [place] [address],[place] [address] 12/10/2024 13:29:25 12/10/2024 14:01:51 [id number] Isidro Le MD [place] [address],[place] [address] 12/10/2024 13:30:03 12/10/2024 16:11:48 Amenorrhea 70145358 N91.2 [id number] this patient is a 19-year-ol d female who presents for amenorrhea . She is a positive test. Ultrasound revealed a 1st trimester gestation. Patient has no complaints . We talked about early care. Talked about genetic screening. We talked about her ultrasound results. We talked about the 12 week ultrasound that has genetic screening components . She was given recommenda tions on exercise, diet, over-the-c ounter medication s. We reviewed her obstetric history. We reviewed her medical history. We reviewed her social history. She will begin routine care at her next visit. [id number] Isidro Le MD [place] [address],[place] [address] 03/17/2025 10:19:11 03/17/2025 11:50:44 screening for malformation 278556036 Z36.3 Z3A.23 8078569469 [id number] Isidro Le MD [place] [address],[place] [address] 03/17/2025 10:20:05 03/17/2025 12:56:57 care status 061311216 Z34.83 94369045 screening 2437 66801 Z36.89 [id number] Isidro Le MD [place] [address],[place] [address] 03/29/2025 10:42:45 03/29/2025 12:17:53 care status 862278480 Z34.82 37505259 [id number] Isidro Le MD [place] [address],[place] [address] 04/20/2025 14:14:57 04/20/2025 15:23:54 care status 911705012 Z34.83 55457640 [id number] MD Clay Aragon [address],[place] [address] 05/05/2025 16:07:26 05/05/2025 17:26:18 care status 792847124 Z34.83 51382823 [id number] MD Clay [place] [address],[place] [address] 05/18/2025 15:16:07 05/18/2025 15:56:40 care: obstetric risk 876062496 O09.293 Z3A.32 9215403 [id number] MD Clay [place] [address],[place] [address] 05/18/2025 15:17:46 05/18/2025 16:51:15 care status 576239572 Z34.83 83105720 [id number] MD Clay Aragon [address],[place] [address] 05/25/2025 15:01:48 05/25/2025 15:34:08 care: obstetric risk 127619944 O09.293 O09.299 Z3A.33 8425369 [id number] MD Clay Aragon [address],[place] [address] 05/25/2025 15:07:02 05/25/2025 17:32:49 Past history of pre-eclampsia 0542095631 57083 Z87.59 507972 [id number] MD Clay Aragon [address],[place] [address] 05/25/2025 15:07:21 05/25/2025 17:10:12 care status 049025788 Z34.83 95565275 [id number] [facility] [address],[place] [address] 05/27/2025 09:25:56 05/27/2025 09:44:43 Backache 827142640 M54.9 14028143 Acute headache 504654760 R51.9 [id number] call this afternoon if no relief will try imitrex [id number] MD Clay Aragon [address],[place] [address] 05/30/2025 11:35:55 05/30/2025 12:10:04 care: obstetric risk 315983438 O09.293 Z3A.34 7542457 [id number] MD Clay Aragon [address],[place] [address] 05/30/2025 11:36:32 05/30/2025 13:02:53 Pre-eclampsia 627857573 O14.90 534338 [id number] MD Clay Aragon [address],[place] [address] 05/30/2025 11:36:55 05/30/2025 13:17:39 care status 280375896 Z34.83 54228345 [id number] MD Clay Aragon [address],[place] [address] 06/06/2025 13:30:49 06/06/2025 14:28:09 care: obstetric risk 862777667 O09.293 Z3A.35 6933820 [id number] MD Clay Aragon [address],[place] [address] 06/06/2025 13:31:14 2025 10:42:54 Past history of pre-eclampsia 0854356606 86527 Z87.59 188707 [id number] MD Clay Aragon [address],[place] [address] 06/06/2025 13:31:30 06/06/2025 15:34:03 care status 469354134 Z34.83 65385477 [id number] MD Clay Aragon [address],[place] [address] 06/13/2025 15:39:53 06/14/2025 09:09:52 care: obstetric risk 254630273 O09.293 Z3A.36 1760168 [id number] BLACK YUN MD [place] [address],[place] [address] 06/13/2025 15:40:02 06/14/2025 09:09:28 Past history of pre-eclampsia 5874107153 65776 Z87.59 680381 [id number] MD Clay Aragon [address],[place] [address] 06/13/2025 15:40:14 06/13/2025 17:38:16 care status 001421448 Z34.83 95379502 [id number] MD Clay Aragon [address],[place] [address] 06/20/2025 10:15:50 06/20/2025 11:10:24 care: obstetric risk 923367662 O09.293 Z3A.37 0351602 [id number] MD Clay Aragon [address],[place] [address] 06/20/2025 10:16:00 06/21/2025 08:20:28 Past history of pre-eclampsia 2163722289 84532 Z87.59 682093 [id number] MD Clay Aragon [address],[place] [address] 06/20/2025 10:16:11 06/20/2025 12:23:37 care status 038563288 Z34.83 41081160 [id number] MD Clay Aragon [address],[place] [address] 06/27/2025 09:52:18 06/27/2025 12:01:46 care: obstetric risk 156626751 O09.293 Z3A.38 5992576 [id number] MD Clay Aragon [address] [address] 06/27/2025 09:52:35 06/27/2025 12:29:08 Past history of pre-eclampsia 8782736247 80315 Z87.59 [id number] [id number] Isidro Le MD [place] [address] [address] 06/27/2025 09:52:44 06/27/2025 12:01:08 care status 724097954 Z34.83 [id number] Health Concerns Section Related Observation LastModified by Organization Detai ls LastModified Time None Recorded Concern Status LastModified by Organization Details LastModified Time None Recorded Advance Directives Directive None Recorded Payers Insurance Date Sequence Insurance Name Policy Number Policy Vital Covered Member ID Vital Member ID Guarantor Name 06/20/2025 1 [place] [facility] Gisela Bates [id number] Gisela L S Bates 05/23/2025 1 *SELF PAY* An iyah L S Bates 06/26/2025 1 [facility] (MEDICAID HMO) [id number] Gisela L S Bates [id number] Gisela L S Bates 05/23/2025 [place] [facility] Gisela Bates [id number] Gisela L S Bates 05/18/2025 1 [facility] (MEDICAID HMO) [id number] Gisela Bates [id number] Gisela L S Bates Notes Date Note Type Note Provider Name and Address Organization Details Recorded Time 06/20/2025 text/html Generic HPI TemplateReported by Patient Isidro Le MD [address], [place], [address], [facility] 06/20/2025 12:18:00 06/27/2025 text/html Generic HPI TemplateReported by Patient Isidro Le MD [address], [place], [address], [facility] 06/27/2025 11:59:22 OBGyn Episode Ob Episode Information Episode Created Date Number of Fetuses Patient Bloodtype Patient rh Status Prepregnancy Weight lbs Domestic Partner Domestic Partner Phone Father Name Apparel Embroidery Digitizer Status 05/27/20 23 1 B Positive CLOSED Fetus Data First Name Last Name Admitted to NICU Weight (g) Sex Living Outcome Pediatric Complications Fetus ID Race Codes Race Delivery Type [id number] Problems Problem Notes 05/27 - Pt declined carrier screen & NIPT until she discusses with her mom08/21/22 Ceftriaxone injection given to pt. in left hip. [facility]:[id number] lot:[id number] exp:01/2024. diana Phillips. Problem Name Start Date End Date Resolution Snomed Code Not e Gonorrhea 08/07/2023 [id number] PA sent for Ceftriaxone - RONEN NEGATIVE Syphilis 05/27/2023 TREATMENT [id number] no s/s, + fta abs- tx scheduled 06/05,06/12,06/19 Pre-eclampsia [id number] 37w De livery, 2x/wk testing Group B Streptococcus carrier [id number] AMP in labor Anemia [id number] Infection by Trichomonas 08/07/2023 [id number] 2/2 positive - tinidazole tx 2/5 - RONEN in 4wks Jerome Calculation Initial Jerome Date Initial Exam Date Initial Exam Provider Initial Ultrasound Date Last Menstrual Period Date Ultra Sound Weeks Gestation 10/30/2023 05/27/2023 03/07/2023 6 Eighteen To Twenty Week Jerome Update Ultra Sound Date Fundal Height At Umbil Quickening Date Ultra Sound Latest Weeks Gestation Final Jerome Confirmed By Final Jerome Confirmed Date Final Jerome Date Ultra Sound Latest Days Gestation 0 [email or web address] 06/12/2023 10/30/19 24 0 Pre-froilan Flowsheet Flowsheet Date 05/27/2023 Solorzano Score Blood Edema Fundus Height Fundus Units Glucose Ketones Leukocytes Nitrite Labor Signs Protein Cervic Dilation Cervic Effacement Cervic Station Type Weight in lbs Pre/Post Dialysis Refused BP Diastolic BP Location Tested BP Systolic BP Type Fetus Heart Rate Present Fetus Movement Comments Flowsheet Date 05/27/2023 Solorzano Score Blood Edema Fundus Height Fundus Units Glucose Ketones Leukocytes Nitrite Labor Signs Protein Cervic Dilation Cervic Effacement Cervic Station Type Weight in lbs Pre/Post Dialysis Refused Weight 121.449150593885 BP Diastolic BP Location Tested BP Systolic BP Type 69 R arm 107 sitting Fetus Heart Rate Present A 145 Fetus Movement Comments This patient is a 17-year-ol d 1 at 17 weeks' gestation who presents for initial care. She is not vaccinated for COVID. She did not get exposed. We talked about care in detail. She is going to have genetic screening. She is given vaccination recommendations. She will begin routine care. Flowsheet Date 06/03/2023 Solorzano Score Blood Edema Fundus Height Fundus Units Glucose Ketones Leukocytes Nitrite Labor Signs Protein Cervic Dilation Cervic Effacement Cervic Station Type Weight in lbs Pre/Post Dialysis Refused BP Diastolic BP Location Tested BP Systolic BP Type Fetus Heart Rate Present Fetus Movement Comments Flowsheet Date 06/05/2023 Solorzano Score Blood Edema Fundus Height Fundus Units Glucose Ketones Leukocytes Nitrite Labor Signs Protein Cervic Dilation Cervic Effacement Cervic Station Type Weight in lbs Pre/Post Dialysis Refused BP Diastolic BP Location Tested BP Systolic BP Type Fetus Heart Rate Present Fetus Movement Comments Flowsheet Date 06/12/2023 Solorzano Score Blood Edema Fundus Height Fundus Units Glucose Ketones Leukocytes Nitrite Labor Signs Protein Cervic Dilation Cervic Effacement Cervic Station 20 Type Weight in lbs Pre/Post Dialysis Refused Weight 123.339250305193 BP Diastolic BP Location Tested BP Systolic BP Type 70 R arm 111 sitting Fetus Heart Rate Present A 145 Fetus Movement A Yes Comments is being treated for syphili s, partners not been treated. Partner has no transportation. She is going to abstain until he gets treated. Otherwise no problems, no complaints, routine care. Flowsheet Date 06/12/2023 Solorzano Score Blood Edema Fundus Height Fundus Units Glucose Ketones Leukocytes Nitrite Labor Signs Protein Cervic Dilation Cervic Effacement Cervic Station Type Weight in lbs Pre/Post Dialysis Refused BP Diastolic BP Location Tested BP Systolic BP Type Fetus Heart Rate Present Fetus Movement Comments Flowsheet Date 06/19/2023 Solorzano Score Blood Edema Fundus Height Fundus Units Glucose Ketones Leukocytes Nitrite Labor Signs Protein Cervic Dilation Cervic Effacement Cervic Station Type Weight in lbs Pre/Post Dialysis Refused BP Diastolic BP Location Tested BP Systolic BP Type Fetus Heart Rate Present Fetus Movement Comments Flowsheet Date 07/24/2023 Solorzano Score Blood Edema Fundus Height Fundus Units Glucose Ketones Leukocytes Nitrite Labor Signs Protein Cervic Dilation Cervic Effacement Cervic Station 26 Type Weight in lbs Pre/Post Dialysis Refused Weight 131.213358100465 BP Diastolic BP Location Tested BP Systolic BP Type 70 R arm 116 sitting Fetus Heart Rate Present A 145 Fetus Movement A Yes Comments Complaints, no problems, rou mitzy care, [facility], prescribed iron, to complete anatomy scan today Flowsheet Date 07/24/2023 Solorzano Score Blood Edema Fundus Height Fundus Units Glucose Ketones Leukocytes Nitrite Labor Signs Protein Cervic Dilation Cervic Effacement Cervic Station Type Weight in lbs Pre/Post Dialysis Refused BP Diastolic BP Location Tested BP Systolic BP Type Fetus Heart Rate Present Fetus Movement Comments Flowsheet Date 08/07/2023 Solorzano Score Blood Edema Fundus Height Fundus Units Glucose Ketones Leukocytes Nitrite Labor Signs Protein Cervic Dilation Cervic Effacement Cervic Station Type Weight in lbs Pre/Post Dialysis Refused Weight 130.122532220274 BP Diastolic BP Location Tested BP Systolic BP Type 78 R arm 123 sitting Fetus Heart Rate Present A 145 Fetus Movement A Yes Comments pt. states tested positive f or chlamydia about 2 weeks ago at [facility] in [place] and has not received treatment. 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 Diabetes testing today. Repeat gonorrhea chlamydia Trichomonas testing Today by urine. Treated today for vulvovaginitis. Treated for chlamydia as well. Flowsheet Date 08/21/2023 Solorzano Score Blood Edema Fundus Height Fundus Units Glucose Ketones Leukocytes Nitrite Labor Signs Protein Cervic Dilation Cervic Effacement Cervic Station 30 Type Weight in lbs Pre/Post Dialysis Refused Weight 131.098106740815 BP Diastolic BP Location Tested BP Systolic BP Type 74 R arm 114 sitting Fetus Heart Rate Present A 134 Fetus Movement A Yes Comments patient continues to be posi tive for gonorrhea. Treated today. Patient had has been treated remotely. She will likely get reinfected. Very strongly emphasized the need for them both get treated at the same time to abstain for a period of time. To get ultrasound next visit for recurrent infection Flowsheet Date 09/02/2023 Solorzano Score Blood Edema Fundus Height Fundus Units Glucose Ketones Leukocytes Nitrite Labor Signs Protein Cervic Dilation Cervic Effacement Cervic Station Type Weight in lbs Pre/Post Dialysis Refused BP Diastolic BP Location Tested BP Systolic BP Type Fetus Heart Rate Present Fetus Movement Comments Flowsheet Date 09/02/2023 Solorzano Score Blood Edema Fundus Height Fundus Units Glucose Ketones Leukocytes Nitrite Labor Signs Protein Cervic Dilation Cervic Effacement Cervic Station Type Weight in lbs Pre/Post Dialysis Refused Weight 129.206819990526 BP Diastolic BP Location Tested BP Systolic BP Type 86 L arm 128 sitting Fetus Heart Rate Present A 145 Fetus Movement A Yes Comments no complaints, no problems, routine care, needs test of cure, growth ultrasound is normal. Flowsheet Date 09/16/2023 Solorzano Score Blood Edema Fundus Height Fundus Units Glucose Ketones Leukocytes Nitrite Labor Signs Protein Cervic Dilation Cervic Effacement Cervic Station 33.5 Type Weight in lbs Pre/Post Dialysis Refused Weight 135.83147380975 BP Diastolic BP Location Tested BP Systolic BP Type 92 L arm 148 sitting 90 R arm 144 sitting 90 R arm 130 sitting Fetus Heart Rate Present A 145 Fetus Movement A Yes Comments no complaints, no problems, routine care, test of cure today, to follow-up on testing Flowsheet Date 10/01/2023 Solorzano Score Blood Edema Fundus Height Fundus Units Glucose Ketones Leukocytes Nitrite Labor Signs Protein Cervic Dilation Cervic Effacement Cervic Station Type Weight in lbs Pre/Post Dialysis Refused BP Diastolic BP Location Tested BP Systolic BP Type Fetus Heart Rate Present Fetus Movement Comments Flowsheet Date 10/01/2023 Solorzano Score Blood Edema Fundus Height Fundus Units Glucose Ketones Leukocytes Nitrite Labor Signs Protein Cervic Dilation Cervic Effacement Cervic Station neg none none trace Type Weight in lbs Pre/Post Dialysis Refused Weight 134.343740710786 BP Diastolic BP Location Tested BP Systolic BP Type 79 156 90 140 Fetus Heart Rate Present Fetus Movement A Yes Comments denies pih sxs, doing well + FM, cervix FT, soft, to ld for pih labs, efw 75% Menstrual History Last Menstrual Date Menses Monthly On Bcp Conception Prior Menses Frequency Hcg Plus Date Menarche Onset Age Genetic Screening And Infection History Question Response Note Mental Retardation/Autism false Patient's Age Will Be 35 Years Or Older At Estim ated Date of Delivery false Thalassemia (Romanian, Cuban, Mediterranean, Or Background): MCV < 80 false Neural Tube Defect (Meningomyelocele, Spina Bifi da, Or Anencephaly) false Congenital Heart Defect false Down Syndrome false Kd-Sachs (eg, Quaker, Cajun, Zimbabwean-[place]) f alse Lucinda Disease false Sickle Cell Disease Or Trait () false Hemophilia Or Other Blood Disorders false Muscular Dystrophy false Cystic Fibrosis false Sanford's Chorea false Intellectual Disability/Autism false If Yes, Was Person Tested For Fragile X? false Other Inherited Genetic Or Chromosomal Disorder false Maternal Metabolic Disorder (eg, Type 1 Diabetes , PKU) false Patient Or Baby's Father Had A Child With Defects Not Listed Above false Recurrent Loss, Or A Stillbirth false Medications (including Suppl ements, Vitamins, Herbs, OTC Drugs), Illicit/Recreational Drugs, Alcohol false If Yes, Agent(s) And Strength/Dosage false Any Other Genetic History false Live With Someone With TB Or Exposed To TB false Patient Or Partner Has History Of Genital Herpes false Rash Or Viral Illness Since Last Menstrual Perio d false History Of STD, Gonorrhea, Chlamydia, HPV, Syphi lis false Other Infection History false History of HIV false History of Hepatitis false Prior GBS-infected child false Hemoglobinopathy Or Carrier false Other Structural Defect false Recent Travel History Outside of Country false Delivery Information Delivery Date Delivery Type Labor Anesthesia Weeks Gestation Incision Type Labor Labor Length Hrs Delivered By Post Complications Tubal Sterilization Discharge Date Comments Discharge Information Feeding Method Contraceptive Method Maternal HG B and HCT Levels Ob Episode Information Episode Created Date Number of Fetuses Patient Bloodtype Patient rh Status Prepregnancy Weight lbs Domestic Partner Domestic Partner Phone Father Name [employer]ider[employer] Digitizer Status 12/11/19 25 1 CLOSED Fetus Data First Name Last Name Admitted to NICU Weight (g) Sex Living Outcome Pediatric Complications Fetus ID Race Codes Race Delivery Type M Full Term [id number] Vaginal Delivery Jerome Calculation Initial Jerome Date Initial Exam Date Initial Exam Provider Initial Ultrasound Date Last Menstrual Period Date Ultra Sound Weeks Gestation 0 Eighteen To Twenty Week Jerome Update Ultra Sound Date Fundal Height At Umbil Quickening Date Ultra Sound Latest Weeks Gestation Final Jerome Confirmed By Final Jerome Confirmed Date Final Jerome Date Ultra Sound Latest Days Gestation 0 0 Menstrual History Last Menstrual Date Menses Monthly On Bcp Conception Prior Menses Frequency Hcg Plus Date Menarche Onset Age Delivery Information Delivery Date Delivery Type Labor Anesthesia Weeks Gestation Incision Type Labor Labor Length Hrs Delivered By Post Complications Tubal Sterilization Discharge Date Comments 4 unsure o f weight born in [place] Discharge Information Feeding Method Contraceptive Method Maternal HG B and HCT Levels Ob Episode Information Episode Created Date Number of Fetuses Patient Bloodtype Patient rh Status Prepregnancy Weight lbs Domestic Partner Domestic Partner Phone Father Name Apparel Embroidery Digitizer Status 03/17/20 25 1 B Positive OPEN Fetus Data First Name Last Name Admitted to NICU Weight (g) Sex Living Outcome Pediatric Complications Fetus ID Race Codes Race Delivery Type [id number] Problems Problem Notes + RPR tx spoke [...] , fax all labs to health dept [phone] . 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,[employer] 03/31 pt denies sx's JGBilateral double renal artery Problem Name Start Date End Date Resolution Snomed Code Not e History of syphilis 03/17/2025 [id number] treated in previous pregnancytiters 05/2023 1:32 decreased to 1:8 03/17 Iron deficiency anemia 05/04/2025 [id number] hgg decreased - to 9-3 Iron infusion order faxed 05/04 _ pending insurance) History of chlamydial infection 03/17/2025 [id number] Past history of pre-eclampsia 03/17/2025 [id number] recommended ASAprevious delivery PTL [id number] 10/08/23 EDC 10/30/23 testing Finding of arrangement of fetus 06/13/2025 [id number] Transverse Jerome Calculation Initial Jerome Date Initial Exam Date Initial Exam Provider Initial Ultrasound Date Last Menstrual Period Date Ultra Sound Weeks Gestation 03/17/2025 12/10/2024 10/06/2024 10 Eighteen To Twenty Week Jerome Update Ultra Sound Date Fundal Height At Umbil Quickening Date Ultra Sound Latest Weeks Gestation Final Jerome Confirmed By Final Ejrome Confirmed Date Final Jerome Date Ultra Sound Latest Days Gestation 0 07/08/20 25 0 Pre- Flowsheet Flowsheet Date 03/17/2025 Solorzano Score Blood Edema Fundus Height Fundus Units Glucose Ketones Leukocytes Nitrite Labor Signs Protein Cervic Dilation Cervic Effacement Cervic Station Type Weight in lbs Pre/Post Dialysis Refused Weight 131.265305775098 BP Diastolic BP Location Tested BP Systolic [...] Weight in lbs Pre/Post Dialysis Refused Weight 131.663294029263 BP Diastolic BP Location Tested BP Systolic [...] Type Weight in lbs Pre/Post Dialysis Refused 133.657199717405 BP Diastolic BP Location Tested BP Systolic [...] Type Weight in lbs Pre/Post Dialysis Refused 135.97208841566 BP Diastolic BP Location Tested BP Systolic [...] Type Weight in lbs Pre/Post Dialysis Refused 135.17169129369 BP Diastolic BP Location Tested BP Systolic [...] Weight in lbs Pre/Post Dialysis Refused Weight 139.39028023336 BP Diastolic BP Location Tested BP Systolic BP Type 76 L arm 112 sitting Fetus Heart Rate Present Fetus Movement A Yes Comments Flowsheet Date 05/25/2025 Solorzano Score Blood Edema Fundus Height Fundus Units Glucose Ketones Leukocytes Nitrite Labor Signs Protein Cervic Dilation Cervic Effacement Cervic Station Type Weight in lbs Pre/Post Dialysis Refused Weight 149.32585429463 BP Diastolic BP Location Tested BP Systolic [...] Weight in lbs Pre/Post Dialysis Refused Weight 138.844946130971 BP Diastolic BP Location Tested BP Systolic [...] Type Weight in lbs Pre/Post Dialysis Refused 139.127421821931 BP Diastolic BP Location Tested BP Systolic BP Type 74 L arm 119 sitting Fetus Heart Rate Present Fetus Movement A Yes Comments Flowsheet Date 05/30/2025 Solorzano Score Blood Edema Fundus Height Fundus Units Glucose Ketones Leukocytes Nitrite Labor Signs Protein Cervic Dilation Cervic Effacement Cervic Station Type Weight in lbs Pre/Post Dialysis Refused 139.646598386489 BP Diastolic BP Location Tested BP Systolic [...] Type Weight in lbs Pre/Post Dialysis Refused 142.083678602087 BP Diastolic BP Location Tested BP Systolic [...] Type Weight in lbs Pre/Post Dialysis Refused 144.020515764710 BP Diastolic BP Location Tested BP Systolic BP Type 65 L arm 98 sitting Fetus Heart Rate Present Fetus Movement A Yes Comments Flowsheet Date 06/13/2025 Solorzano Score Blood Edema Fundus Height Fundus Units Glucose Ketones Leukocytes Nitrite Labor Signs Protein Cervic Dilation Cervic Effacement Cervic Station Type Weight in lbs Pre/Post Dialysis Refused 144.420695608669 BP Diastolic BP Location Tested BP Systolic [...] Weight in lbs Pre/Post Dialysis Refused Weight 144.93003772737 BP Diastolic BP Location Tested BP Systolic BP Type 64 L arm 104 sitting Fetus Heart Rate Present Fetus Movement A Yes Comments Flowsheet Date 06/20/2025 Solorzano Score Blood Edema Fundus Height Fundus Units Glucose Ketones Leukocytes Nitrite Labor Signs Protein Cervic Dilation Cervic Effacement Cervic Station Type Weight in lbs Pre/Post Dialysis Refused 144.276761787433 BP Diastolic BP Location Tested BP Systolic BP Type 64 L arm 104 sitting Fetus Heart Rate Present A 145 Fetus Movement A Yes Comments no complaints, no problems, routine care, no contractions, no vaginal bleeding, no loss of fluid, no cramping Flowsheet Date 06/27/2025 Solrozano Score Blood Edema Fundus Height Fundus Units [...] Type Weight in lbs Pre/Post Dialysis Refused 147.026167194437 BP Diastolic BP Location Tested BP Systolic BP Type 70 L arm 104 sitting Fetus Heart Rate Present Fetus Movement A Yes Comments Flowsheet Date 06/27/2025 Solorzano Score Blood Edema Fundus Height Fundus Units Glucose Ketones Leukocytes Nitrite Labor Signs Protein Cervic Dilation Cervic Effacement Cervic Station Type Weight in lbs Pre/Post Dialysis Refused 147.753447880935 BP Diastolic BP Location Tested BP Systolic [...]
--- OUTSIDE RECORDS SUMMARY | 2025-07-01 06:20 | XMS_ITS | Continuity of Care Document ---
Author Organization [facility] Address [address] [place] [address] [place] [address] Assessment No assessment recorded. Plan of Treatment [...] profile + non-str ess test 2024 025 [facility], [address], [address], [place], [address], 06/27/2025 18:49:37 Medication Orders None recorde d. Patient TargetsNo [...] Resul ting Lab: [facility] [address] [facility] [address] Tel: CULTU RE ----- ----- ----- --- No growt h in 1 day (dete ction level of 10,00 0 colon ies / ml.) Not Available [facility] (Lab) [address] [facility], [place], [address], 03/19/2025 07:23:20 03/17/2003/17/2025 CBC W/DIF F WBC 5.0 10'3/ uL 3.5-10 .5 Not Available [facility] (Lab) [address] [facility], [place], [address], 03/21/2025 14:27:06 03/17/20 25 03/17/2025 CBC W/DIF F RBC 3.57 10'6/ uL (based on docume nted legal sex) 3.80-5 .20 low Not Available [facility] (Lab) [address] [facility], [place], [address], 03/21/2025 14:27:06 03/17/20 25 03/17/2025 CBC W/DIF F HGB 10.5 g/dL (based on docume nted legal sex) 11.6-1 5.4 low Not Available [facility] (Lab) [address] [place], [address], 03/21/2025 14:27:06 03/17/20 25 03/17/2025 CBC W/DIF F HCT 30.2 % (based on docume nted legal sex) 34.0-4 5.0 low Not Available [facility] (Lab) [address] [facility], [place], [address], 03/21/2025 14:27:06 03/17/20 25 03/17/2025 CBC W/DIF F MCV 84.6 fL 80.0-9 9.0 Not Available [facility] (Lab) [address], [place], [address], 03/21/2025 14:27:06 03/17/20 25 03/17/2025 CBC W/DIF F MCH 29.4 pg 27.0-3 4.0 Not Available [facility] (Lab) [address], [place], [address], 03/21/2025 14:27:06 03/17/20 25 03/17/2025 CBC W/DIF F MCHC 34.8 g/dL 32.0-3 5.5 Not Available [facility] (Lab) [address], [place], [address], 03/21/2025 14:27:06 03/17/20 25 03/17/2025 CBC W/DIF F RDW 13.3 % 11.0-1 5.0 Not Available [facility] (Lab) [address], [place], [address], 03/21/2025 14:27:06 03/17/20 25 03/17/2025 CBC W/DIF F plt 235 10'3/ uL 150-40 0 Not Available [facility] (Lab) [address], [place], [address], 03/21/2025 14:27:06 03/17/20 25 03/17/2025 CBC W/DIF F MPV 10.4 fL 8.8-12 .1 Not Available [facility] (Lab) [address], [place], [address], 03/21/2025 14:27:06 03/17/20 25 03/17/2025 CBC W/DIF F NRBC's 0.0 % 0.0 Not Available [facility] (Lab) [address], [place], [address], 03/21/2025 14:27:06 03/17/20 25 03/17/2025 CBC W/DIF F absolute NRBCs 0.0 10'3/ uL no refere nce range establ ished Not Available [facility] (Lab) [address] [facility], [place], [address], 03/21/2025 14:27:06 03/17/20 25 03/17/2025 CBC W/DIF F neutrophils 72.4 % 34.0-7 3.0 Not Available [facility] (Lab) [address] [facility], [place], [address], 03/21/2025 14:27:06 03/17/20 25 03/17/2025 CBC W/DIF F lymphocytes 14.4 % 15.0-5 0.0 low Not Available [facility] (Lab) [address] [facility], [place], [address], 03/21/2025 14:27:06 03/17/20 25 03/17/2025 CBC W/DIF F monocytes 6.6 % 1.0-15 .0 Not Available [facility] (Lab) [address] [facility], [place], [address], 03/21/2025 14:27:06 03/17/20 25 03/17/2025 CBC W/DIF F eosinophils 5.2 % 0.0-8. 0 Not Available [facility] (Lab) [address] [place], [address], 03/21/2025 14:27:06 03/17/20 25 03/17/2025 CBC W/DIF F basophils 0.4 % 0.0-2. 0 Not Available [facility] (Lab) [address] [facility], [place], [address], 03/21/2025 14:27:06 03/17/20 25 03/17/2025 CBC W/DIF [...] separ ately if prese nt. Not Available [facility] (Lab) [address] [facility], [place], [address], 03/21/2025 14:27:06 03/17/20 25 03/17/2025 CBC W/DIF F absolute neutrophils 3.6 10'3/ uL 1.5-8. 0 Not Available [facility] (Lab) [address] [facility], [place], [address], 03/21/2025 14:27:06 03/17/20 25 03/17/2025 CBC W/DIF F absolute lymphocytes 0.7 10'3/ uL 1.0-4. 0 low Not Available [facility] (Lab) [address] [facility], [place], [address], 03/21/2025 14:27:06 03/17/20 25 03/17/2025 CBC W/DIF F absolute monocytes 0.3 10'3/ uL 0.2-1. 0 Not Available [facility] (Lab) [address] [facility], [place], [address], 03/21/2025 14:27:06 03/17/20 25 03/17/2025 CBC W/DIF F absolute eosinophils 0.3 10'3/ uL 0.0-0. 6 Not Available [facility] (Lab) [address] [facility], [place], [address], 03/21/2025 14:27:06 03/17/20 25 03/17/2025 CBC W/DIF F absolute basophils 0.0 10'3/ uL 0.0-0. 3 Not Available [facility] (Lab) [address] [facility], [place], [address], 03/21/2025 14:27:06 03/17/20 25 03/17/2025 CBC W/DIF [...] bhand book. nm.or g/gen derx Not Available [facility] (Lab) [address], [place], [address], 03/21/2025 14:27:06 03/17/20 25 03/17/2025 HIV 1/2 ANTIG EN/AN TIBOD Y, REFLE X CONFI RMATI ON HIV antigen/anti body Nonrea ctive nonrea ctive HIV-1 antig en and HIV-1 /HIV- 2 antib odies were not detec jluis. No labor atory evide nce of HIV infec tion. Not Available [facility] (Lab) [address], [place], [address], 03/21/2025 14:27:06 03/17/20 25 03/17/2025 HEPAT ITIS B SURFA CE ANTIG EN hepatitis B surface antigen Non-re active non-re active This assay was perfo rmed using [facility] [employer] [facility] [facility] [employer] ratio n reage nts and test kits. Value s obtai gayla with other assay metho ds or kits canno t be used inter lee eably . Not Available [facility] (Lab) [address], [place], [address], 03/21/2025 14:27:07 03/17/20 25 03/17/2025 HEPAT ITIS C ANTIB ELOISE SCREE N, REFLE X TO CONFI RMATI ON hepatitis C antibody Non-re active non-re active Antib odies to HCV Not Detec jluis, does not exclu de the possi bilit y of expos ure to HCV. Not Available [facility] (Lab) [address], [place], [address], 03/21/2025 14:27:07 03/17/20 25 03/17/2025 RUBEL LA IGG ANTIB ELOISE, QUANT rubella antibodies, IgG Reacti ve reacti ve Not Available [facility] (Lab) [address] [facility], [place], [address], 03/21/2025 14:27:08 03/17/20 25 03/17/2025 RUBEL LA IGG ANTIB ELOISE, QUANT rubella antibodies, IgG quant 14.2 IU/mL >=10 Non-r eacti ve (Non- Immun e) <10 IU/mL React reyna (Immu ne) > or = 10 IU/mL Not Available [facility] (Lab) [address] [facility], [place], [address], 03/21/2025 14:27:08 03/17/20 25 03/17/2025 TYPE/ RH/SC REEN ABO/Rh type B POS Not Available [facility] (Lab) [address] [facility], [place], [address], 03/21/2025 14:27:08 03/17/20 25 03/17/2025 TYPE/ RH/SC REEN antibody screen NEG Not Available [facility] (Lab) [address] [facility], [place], [address], 03/21/2025 14:27:08 03/17/20 25 03/17/2025 TYPE/ RH/SC REEN exp date 2024 23:59 Not Available [facility] (Lab) [address] [facility], [place], [address], 03/21/2025 14:27:08 03/17/20 25 03/17/2025 HEMOG LOBIN A1C hemoglobin A1C 4.5 % 4.0-5. 6 The Ameri can [employer] fred[employer] iatio n recom mends that a prima ry goal of thera bairon waldrop d be a HBA1C of < 7% and that physi cians palma d reeva luate the treat ment regim en in patie nts with HBA1C value s consi stent ly > 8%. <5.7% Evie l 5.7 - 6.4% Incre ased risk for diabe freda >=6.5 % Diagn ostic of diabe freda <7.0% Goal of thera py >8.0% Actio n sugge sted Not Available [facility] (Lab) [address] [facility], [place], [address], 03/21/2025 14:27:09 03/17/20 25 03/17/2025 RPR SCREE [...] ion (TP-P A) testi ng. Not Available [facility] (Lab) [address] [facility], [place], [address], 03/21/2025 14:27:09 03/17/20 25 03/17/2025 RPR SCREE N, REFLE X TITER /CONF IRMAT ION RPR titer 1:8 . none high Not Available [facility] (Lab) [address] [facility], [place], [address], 03/21/2025 14:27:09 03/17/20 25 03/17/2025 SYPHI LIS [...] and resul ts, see: https ://ganesh sena [employer] / it-mm files /Syph ilis_ Serol ogy_A lgori thm.p df ----- ----- ----- ----A DDITI ONAL INFOR MATIO N---- ----- ----- ----- This test is inten ded to be used as a confi rmato ry test on sampl es that have been teste d by [facility] syphi lis test. Test Perfo rmed by: [facility] [place] [address], [place] [address] Lab Direc tor: Jay Manzano nn Ph.D. ; CLIA# [id number] Not Available [facility] (Lab) [address] [facility], [place], [address], 03/21/2025 14:27:10 03/29/2003/29/2025 CT/GC AND TRICH OMONA S VAGIN SILVA (RRNA ), URINE chlamydia trachomatis, PCR Negati ve negati ve Not Available [facility] (Lab) [address] [facility], [place], [address], 03/30/2025 14:21:33 03/29/2003/29/2025 CT/GC AND TRICH OMONA S VAGIN SILVA (RRNA ), URINE neisseria gonorrhoeae, PCR Negati ve negati ve Not Available [facility] (Lab) [address] [facility], [place], [address], 03/30/2025 14:21:33 03/29/2003/29/2025 CT/GC AND TRICH OMONA S VAGIN SILVA (RRNA ), URINE trichomonas vaginalis ribosomal RNA (rrna) Negati ve negati ve Not Available [facility] (Lab) [address] [place], [address], 03/30/2025 14:21:33 09/03/20 25 04/20/2025 HEMAT OCRIT (HCT) HCT 29.1 % (based on docume nted legal sex) 34.0-4 5.0 low Not Available [facility] (Lab) [address] [facility], [place], [address], 04/23/2025 15:25:44 04/20/20 25 04/20/2025 HEMOG LOBIN (HGB) HGB 9.3 g/dL (based on docume nted legal sex) 11.6-1 5.4 low Not Available [facility] (Lab) [address] [facility], [place], [address], 04/23/2025 15:25:45 04/20/20 25 04/20/2025 HIV 1/2 ANTIG EN/AN TIBOD Y, REFLE X CONFI RMATI ON HIV antigen/anti body Nonrea ctive nonrea ctive HIV-1 antig en and HIV-1 /HIV- 2 antib odies were not detec jluis. No labor atory evide nce of HIV infec tion. Not Available [facility] (Lab) [address] [facility], [place], [address], 04/23/2025 15:25:45 04/20/20 25 04/20/2025 RPR SCREE [...] ion (TP-P A) testi ng. Not Available [facility] (Lab) [address] [facility], [place], [address], 04/23/2025 15:25:46 04/20/20 25 04/20/2025 RPR SCREE N, REFLE X TITER /CONF IRMAT ION RPR titer 1:8 . none high Not Available [facility] (Lab) [address] [facility], [place], [address], 04/23/2025 15:25:46 04/20/20 25 04/20/2025 SYPHI LIS [...] te prope r treat ment. RPR testcedric ng is recom loren d to disti nguis h betwe en treat ed and untre ated syphi lis. For addit ional infor vanna quiroz on inter preta tion of the syphi lis rever se [facility] and resul ts, see: https ://ganesh sena [employer] / it-mm files /Syph ilis_ Serol ogy_A lgori thm.p df ----- ----- ----- ----A DDITI ONAL INFOR MATNOHEMY N---- ----- ----- ----- This test is inten ded to be used as a confi rmato ry test on sampl es that have been teste d by [facility] syphi lis test. Test Perfo rmed by: [facility] - [place] [address] , [place] [address] Lab Direc tor: Jay Manzano nn Ph.D. ; CLIA# [id number] Not Available [facility] (Lab) [address] [facility], [place], [address], 04/23/2025 15:25:46 05/27/20 25 05/27/2025 PROTE IN/CR EATIN INE RATIO , URINE creatinine, urine 123.0 mg/dL R-No refer ence range estab lishe d for this assay Not Available [facility] (Lab) [address] [facility], [place], [address], 05/28/2025 10:30:45 05/27/20 25 05/27/2025 PROTE IN/CR EATIN INE RATIO , URINE protein, urine 22 mg/dL R-No refer ence range estab lishe d for this assay Not Available [facility] (Lab) [address] [facility], [place], [address], 05/28/2025 10:30:45 05/27/20 25 05/27/2025 PROTE IN/CR [...] fican t prote inuri a. Not Available [facility] (Lab) [address] [facility], [place], [address], 05/28/2025 10:30:45 06/06/20 25 06/06/2025 CT/GC AND TRICH OMONA S VAGIN SILVA (RRNA ), URINE chlamydia trachomatis, PCR Negati ve negati ve Not Available [facility] (Lab) [address] [facility], [place], [address], 06/09/2025 16:13:50 06/06/20 25 06/06/2025 CT/GC AND TRICH OMONA S VAGIN SILVA (RRNA ), URINE neisseria gonorrhoeae, PCR Negati ve negati ve Not Available [facility] (Lab) [address] [facility], [place], [address], 06/09/2025 16:13:50 06/06/20 25 06/06/2025 CT/GC AND TRICH OMONA S VAGIN SILVA (RRNA ), URINE trichomonas vaginalis ribosomal RNA (rrna) Negati ve negati ve Not Available [facility] (Lab) [address] [facility], [place], [address], 06/09/2025 16:13:50 06/06/20 25 06/06/2025 CULTU RE: [...] t Abnor mal: No Resul ting Lab: [facility] [address] [facility] [address] Tel: CULTU RE ----- ----- ----- --- No Group B strep isola jluis at 2 days (shelia ctive broth enhan cemen t) Not Available [facility] (Lab) [address] [facility], [place], [address], 06/09/2025 16:13:50 03/17/20 25 03/17/2025 US, obste tric, 2nd or 3rd trime ster No observ ation record ed. [email or web address] [address], [place], [address], 03/17/2025 15:45:06 03/17/20 25 03/17/2025 US, obste tric, 2nd or 3rd trime ster No observ ation record ed. [email or web address] [place] [address], [place], [address], 03/17/2025 12:51:02 03/17/20 25 03/17/2025 US, obste tric, 2nd or 3rd trime ster No observ ation record ed. [email or web address] [address], [place], [address], 04/07/2025 21:57:11 03/17/20 25 03/17/2025 US, obste tric, 2nd or 3rd trime ster No observ ation record ed. [email or web address] [address], [place], [address], 03/17/2025 23:04:51 03/17/20 25 03/17/2025 US, obste tric, 2nd or 3rd trime ster No observ ation record ed. [email or web address] [address], [place], [address], 03/17/2025 15:45:46 03/17/20 25 03/17/2025 US, obste tric, 2nd or 3rd trime ster No observ ation record ed. [email or web address] [address], [place], [address], 03/18/2025 17:16:02 05/18/2005/18/2025 US, obste tric, follo w-up No observ ation record ed. [facility] [address], [place], [address], 05/18/2025 18:23:17 05/18/2005/18/2025 US, obste tric, follo w-up No observ ation record ed. [email or web address] [address], [place], [address], 05/20/2025 13:20:22 05/25/2005/25/2025 US, obste tric, bioph ysica l profi le + non-s tress test No observ ation record ed. [facility] [address], [place], [address], 05/25/2025 17:34:34 05/25/20 25 05/25/2025 US, obste tric, follo w-up No observ ation record ed. [email or web address] [address], [place], [address], 05/26/2025 14:44:53 05/25/2005/25/2025 non-s tress test No observ ation record ed. [email or web address] [place] [address], [place], [address], 05/25/2025 18:39:52 05/25/20 non-s tress test No observ ation record ed. [email or web address] [place] [address], [place], [address], 05/25/2025 17:32:07 05/30/2005/30/2025 US, obste tric, bioph ysica l profi le + non-s tress test No observ ation record ed. [email or web address] [place] [address], [place], [address], 05/30/2025 12:42:17 05/30/2005/30/2025 US, obste tric, bioph ysica l profi le + non-s tress test No observ ation record ed. [email or web address] [address], [place], [address], 05/30/2025 17:35:43 05/30/2005/30/2025 non-s tress test No observ ation record ed. [email or web address] [place] [address], [place], [address], 05/30/2025 13:00:42 05/30/20 non-s tress test No observ ation record ed. [email or web address] [place] [address], [place], [address], 05/30/2025 13:02:59 06/06/2006/06/2025 US, obste tric, bioph ysica l profi le + non-s tress test No observ ation record ed. [email or web address] [place] [address], [place], [address], 06/06/2025 14:28:11 06/06/2006/06/2025 US, obste tric, bioph ysica l profi le + non-s tress test No observ ation record ed. [email or web address] [address], [place], [address], 06/06/2025 15:10:23 06/07/20 25 2025 non-s tress test No observ ation record ed. [email or web address] [place] [address], [place], [address], 2025 20:27:42 06/07/20 non-s tress test No observ ation record ed. [email or web address] Not Available 2024 15:33:58 06/13/2006/13/2025 US, obste tric, follo w-up No observ ation record ed. [email or web address] [address], [place], [address], 06/14/2025 10:34:08 06/13/2006/13/2025 non-s tress test No observ ation record ed. [email or web address] [place] [address], [place], [address], 06/19/2025 18:04:34 06/13/20 non-s tress test No observ ation record ed. [email or web address] [place] [address], [place], [address], 06/13/2025 18:04:44 06/13/20 25 06/14/2025 US, obste tric, follo w-up No observ ation record ed. [email or web address] [place] [address], [place], [address], 06/14/2025 13:38:03 06/13/20 25 06/14/2025 US, lucretia dimas, bioph ysica l profi le + non-s tress test No observ ation record ed. [email or web address] [place] [address], [place], [address], 06/14/2025 13:38:17 06/15/20 25 2025 non-s tress test No observ ation record ed. [facility] [address], [place], [address], 06/17/2025 09:42:27 06/20/2006/20/2025 US, lucretia dimas, bioph ysica l profi le + non-s tress test No observ ation record ed. [email or web address] [place] [address], [place], [address], 06/20/2025 13:28:54 06/20/20 25 06/20/2025 US, lucretia dimas, follo w-up No observ ation record ed. [email or web address] [address], [place], [address], 06/20/2025 16:32:26 06/20/20 25 06/20/2025 non-s tress test No observ ation record ed. [email or web address] [place] [address], [place], [address], 06/20/2025 18:00:22 06/20/20 non-s tress test No observ ation record ed. [place] [address], [place], [address], 06/20/2025 17:57:42 06/27/20 25 06/27/2025 US, lucretia tric, bioph ysica l profi le No observ ation record ed. [email or web address] [address], [place], [address], 06/28/2025 11:16:29 06/27/2006/27/2025 US, obste tric, bioph ysica l profi le + non-s tress test No observ ation record ed. [facility] [address], [place], [address], 06/27/2025 18:49:37 06/27/2006/27/2025 non-s tress test No observ ation record ed. [facility] [address], [place], [address], 06/27/2025 18:50:27 06/27/20 non-s tress test No observ ation record ed. [email or web address] [place] [address], [place], [address], 06/27/2025 12:29:10 Result Notes None recorded. Problems Name Problem SNOMED Code Status Onset Date Resolution Date Notes Provider Name and Address Organization Details Recorded Time Anemia 379004996 Completed Trino serrano, [facility] 4 13:00:34 Pre-ecla mpsia 560264169 Completed 37w Delivery , 2x/wk antenata l testing Trino [facility] 4 13:00:34 Group B Streptoc occus carrier 2523055382 103 Completed AMP in labor Trino serrano [facility] 4 13:00:33 Pregnanc y 65203897 Completed 202210/27/2023 Jazz serrano [facility] 5 12:31:25 Syphilis 80268618 Completed 2022 no s/s, +fta abs- tx schedule d 06/05,,110 2 Trino [facility] 4 13:00:34 Infectio n by Analia hidalgo [id number] Completed 2022 2/2 positive - tinidazo le tx 2/5 - RONEN in 4wks Trino [facility] [facility] 4 13:00:34 Gonorrhe a 65757760 Completed 2022 PA sent 08/20 for Ceftriax one - [facility] 4 13:00:34 Pregnanc y 44407847 Active 2024 Jazz Yonis [facility], [facility] 5 12:31:25 Past pregnanc y history of pre-ecla mpsia 7396289349 93660 Active 2024 recommen ded ASA previous delivery PTL 36w6d 10/08/23 EDC 10/30/23 antenata l testing Juana Timmy [facility] 5 11:26:48 History of syphilis [id number] 062307 Active 2024 treated in previous pregnanc y titers 05/2023 1:32 decrease d to 1:8 03/17 Juana Timmy serrano [facility] 5 11:51:07 History of chlamydi al infectio n 713795397 Active 2024 Isidro Le MD [address], [place], [address], [place] [facility] 5 12:53:43 Iron deficien cy anemia 66539426 Active 2024 hgg decrease d 03-17 to 9-3 Iron infusion order faxed 05/04 _ pending insuranc e) Juana serrano [facility] 11:03:51 Finding of arrangem ent of fetus 26773319 Active 2024 Transver se Isidro Le MD [address], [place], [address], [facility] 17:33:30 Problem Notes None recorded. Medical [...] Address Organization Details Last Updated DateTime 06/27/2025 65694.26068 g 104/70 mm[Hg] Jazz Yonis [facility] 06/27/2025 11:35:18 Date Recorded Body weight Systolic And Diastolic Provider Name and Address Organization Details Last Updated DateTime 06/27/2025 77623.58719 g 104/70 mm[Hg] Christine Adonis [facility] 06/27/2025 12:27:23 Social History Question Answer Notes LastModified by Organizat ion Details LastModified Time Tobacco Smoking Status Never Smoker [facility]queline [facility] 03/07/2023 14:21:17 Are You Blind Or Do You Have Difficulty Seeing? No [email or web address] Information n ot available 10/01/2023 What Is Your Level Of Caffeine Consumption? Occasional [email or web address] Information not available 10/01/2023 How Much Tobacco Do You Chew? None Information not available 10/01/2023 In The 14 Days Before Symptom Onset, Have You Had Close Contact With A Laboratory-confirm ed COVID-19 While That Case Was Ill? No [email or web address] Information n ot available 10/01/2023 In The 14 Days Before Symptom Onset, Have You Had Close Contact With A Person Who Is Under Investigation For COVID-19 While That Person Was Ill? No [email or web address] Information not available 10/01/2023 Have You Been To An Area Known To Be High Risk For COVID-19? No [email or web address] Information not available 10/01/2023 Are You Deaf Or Do You Have Serious Difficulty Hearing? No [email or web address] Information not available 10/01/2023 What Type Of Diet Are You Following? REGULAR [email or web address] Information n ot available 10/01/2023 What Is The Highest Grade Or Level Of School You Have Completed Or The Highest Degree You Have Received? [id number] [email or web address] Information not available 10/01/2023 Are There Any Guns Present In Your Home? No [email or web address] Information not available 10/01/2023 Do You Use Protection During Sex? Usually [email or web address] Information not available 10/01/2023 Do You Use Your Seat Belt Or Car Seat Routinely? Yes [email or web address] Information not available 10/01/2023 Do You Have Smoke And Carbon Monoxide Detectors In Your Home? No Information not available 10/01/2023 How Much Tobacco Do You Smoke? No [email or web address] Information not available 10/01/2023 Do You Use Sunscreen Routinely? No [email or web address] Information not available 10/01/2023 Have You Used IV Drugs? No Information not available 10/01/2023 Do You Have Difficulty Walking Or Climbing Stairs? No [email or web address] Information not available 10/01/2023 Sex: Unknown Functional Status Question Answer Note LastModified by Organizat ion Details LastModified Time Do you use any illicit or recreational drugs? No [email or web address] Information not available 10/01/2023 What is your level of alcohol consumption? None [email or web address] Information not available 10/01/2023 Are you able to walk independently without assistance or assistive devices? YESWOREST [email or web address] Information not available 10/01/2023 Are you able to care for yourself independently? Yes [email or web address] Information not available 10/01/2023 Do you have difficulty dressing, bathing, grooming, or toileting? No [email or web address] Information not available 10/01/2023 What is your exercise level? Moderate Information not available 10/01/2023 Mental Status Question Answer Note LastModified by Organization D etails LastModified Time Do you feel stressed (tense, restless, nervous, or anxious, or unable to sleep at night)? [id number] [email or web address] Information not available 10/01/2023 Family History Relationship [...] ICD10 Code Diagnosis IMO Codes Diagnosis Note [id number] Mita Tavera CNM [place] [address] [address] 05/27/2025 09:25:56 05/27/2025 09:44:43 Backache 905402543 M54.9 [id number] Acute headache 811605773 R51.9 [id number] call this afternoon if no relief will try imitrex [id number] MD Clay Aragon [address],[place] [address] 05/30/2025 11:35:55 05/30/2025 12:10:04 care: obstetric risk [id number] O09.293 Z3A.34 7218050 [id number] MD Clay Aragon [address],[place] [address] 05/30/2025 11:36:32 05/30/2025 13:02:53 Pre-eclampsia 602769179 O14.90 [id number] MD Clay Aragon [address],[place] [address] 05/30/2025 11:36:55 05/30/2025 13:17:39 care status 083287614 Z34.83 [id number] MD Clay Aragon [address],[place] [address] 06/06/2025 13:30:49 06/06/2025 14:28:09 care: obstetric risk 485659878 O09.293 Z3A.35 2943808 [id number] MD Clay Aragon [address],[place] [address] 06/06/2025 13:31:14 2025 10:42:54 Past history of pre-eclampsia [id number] 74107 Z87.59 272352 [id number] MD Clay Aragon [address],[place] [address] 06/06/2025 13:31:30 06/06/2025 15:34:03 care status 078757654 Z34.83 [id number] MD Clay Aragon [address],[place] [address] 06/13/2025 15:39:53 06/14/2025 09:09:52 care: obstetric risk 658294221 O09.293 Z3A.36 7733245 [id number] BLACK YUN MD [place] [address],[place] [address] 06/13/2025 15:40:02 06/14/2025 09:09:28 Past history of pre-eclampsia 6335725607 16164 Z87.59 [id number] MD Clay Aragon [address],[place] [address] 06/13/2025 15:40:14 06/13/2025 17:38:16 care status 385163757 Z34.83 31017928 [id number] MD Clay Aragon [address],[place] [address] 06/20/2025 10:15:50 06/20/2025 11:10:24 care: obstetric risk 265150300 O09.293 Z3A.37 5184085 [id number] MD Clay Aragon [address],[place] [address] 06/20/2025 10:16:00 06/21/2025 08:20:28 Past history of pre-eclampsia 2726774226 45989 Z87.59 663441 [id number] MD Clay Aragon [address],[place] [address] 06/20/2025 10:16:11 06/20/2025 12:23:37 care status 245900518 Z34.83 71594556 [id number] MD Clay Aragon [address],[place] [address] 06/27/2025 09:52:18 06/27/2025 12:01:46 care: obstetric risk 448609465 O09.293 Z3A.38 2751570 [id number] MD Clay Aragon [address],[place] [address] 06/27/2025 09:52:35 06/27/2025 12:29:08 Past history of pre-eclampsia 9996302761 35935 Z87.59 [id number] Isidro Le MD [place] [address] [address] 06/27/2025 09:52:44 06/27/2025 12:01:08 care status 835616680 Z34.83 [id number] Health Concerns Section Related Observation LastModified by Organization Detai ls LastModified Time None Recorded Concern Status LastModified by Organization Details LastModified Time None Recorded Payers Encounter Date Sequence Insurance Name Policy Number Policy Vital Covered Member ID Vital Member ID Guarantor Name 06/27/2025 1 [facility] (MEDICAID HMO) [id number] Gisela Bates [id number] Gisela Bates Notes Date Note Type Note Provider Name and Address Organization Details Recorded Time 06/27/2025 text/html Generic HPI TemplateReported by Patient Isidro Le MD [address], [place], [address], [facility] 06/27/2025 11:59:22 OBGyn Episode Ob Episode Information Episode Created Date Number of Fetuses Patient Bloodtype Patient rh Status Prepregnancy Weight lbs Domestic Partner Domestic Partner Phone Father Name Teacher Drama Status 03/17/20 25 1 B Positive OPEN Fetus Data First Name Last Name Admitted to NICU Weight (g) Sex Living Outcome Pediatric Complications Fetus ID Race Codes Race Delivery Type [id number] Problems Problem Notes + RPR tx spoke with [facility] confirmed pt tx previous RPR 06/05/23, 06/12, & 06/19/23 titter 1:32 decreased to 1:8 per Pat antibody can be + but titer decreasing no tx unless pt sx's rash, lesions sx's rec tx if pt sx's schedule appt for evaluation. RPT labs @ 28wks , fax all labs to health dept [phone] . 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 03/31 pt denies sx's JGBilateral double renal artery Problem Name Start Date End Date Resolution Snomed Code Not e History of syphilis 03/17/2025 [id number] treated in previous pregnancytiters 05/2023 1:32 decreased to 1:8 03/17 Iron deficiency anemia 05/04/2025 74279931 hgg decreased to 9-3 Iron infusion order faxed 05/04 _ pending insurance) History of chlamydial infection 03/17/2025 [id number] Past history of pre-eclampsia 03/17/2025 [id number] recommended ASAprevious delivery PTL 36w6d 10/08/23 EDC 10/30/23 testing Finding of arrangement of fetus 06/13/2025 [id number] Transverse Jerome Calculation Initial Jerome Date Initial [...] Weight in lbs Pre/Post Dialysis Refused Weight 131.838594836051 BP Diastolic BP Location Tested BP Systolic [...] Weight in lbs Pre/Post Dialysis Refused Weight 131.021507648658 BP Diastolic BP Location Tested BP Systolic [...] Type Weight in lbs Pre/Post Dialysis Refused 133.015967167292 BP Diastolic BP Location Tested BP Systolic [...] Type Weight in lbs Pre/Post Dialysis Refused 135.36922030337 BP Diastolic BP Location Tested BP Systolic [...] Type Weight in lbs Pre/Post Dialysis Refused 135.06235417713 BP Diastolic BP Location Tested BP Systolic [...] Weight in lbs Pre/Post Dialysis Refused Weight 139.12080850559 BP Diastolic BP Location Tested BP Systolic BP Type 76 L arm 112 sitting Fetus Heart Rate Present Fetus Movement A Yes Comments Flowsheet Date 05/25/2025 Solorzano Score Blood Edema Fundus Height Fundus Units Glucose Ketones Leukocytes Nitrite Labor Signs Protein Cervic Dilation Cervic Effacement Cervic Station Type Weight in lbs Pre/Post Dialysis Refused Weight 149.05257551381 BP Diastolic BP Location Tested BP Systolic [...] Weight in lbs Pre/Post Dialysis Refused Weight 138.408311390633 BP Diastolic BP Location Tested BP Systolic BP Type 78 L arm 120 sitting Fetus Heart Rate Present A 139 Fetus Movement A Yes Comments was at [place] yesterday wi th ruiz and back pain [...] Type Weight in lbs Pre/Post Dialysis Refused 139.888925458808 BP Diastolic BP Location Tested BP Systolic BP Type 74 L arm 119 sitting Fetus Heart Rate Present Fetus Movement A Yes Comments Flowsheet Date 05/30/2025 Solorzano Score Blood Edema Fundus Height Fundus Units Glucose Ketones Leukocytes Nitrite Labor Signs Protein Cervic Dilation Cervic Effacement Cervic Station Type Weight in lbs Pre/Post Dialysis Refused 139.187143971555 BP Diastolic BP Location Tested BP Systolic [...] Type Weight in lbs Pre/Post Dialysis Refused 142.605245905152 BP Diastolic BP Location Tested BP Systolic [...] Type Weight in lbs Pre/Post Dialysis Refused 144.405028059738 BP Diastolic BP Location Tested BP Systolic BP Type 65 L arm 98 sitting Fetus Heart Rate Present Fetus Movement A Yes Comments Flowsheet Date 06/13/2025 Solorzano Score Blood Edema Fundus Height Fundus Units Glucose Ketones Leukocytes Nitrite Labor Signs Protein Cervic Dilation Cervic Effacement Cervic Station Type Weight in lbs Pre/Post Dialysis Refused 144.681356874148 BP Diastolic BP Location Tested BP Systolic [...] Weight in lbs Pre/Post Dialysis Refused Weight 144.29204165954 BP Diastolic BP Location Tested BP Systolic BP Type 64 L arm 104 sitting Fetus Heart Rate Present Fetus Movement A Yes Comments Flowsheet Date 06/20/2025 Solorzano Score Blood Edema Fundus Height Fundus Units Glucose Ketones Leukocytes Nitrite Labor Signs Protein Cervic Dilation Cervic Effacement Cervic Station Type Weight in lbs Pre/Post Dialysis Refused 144.785635096004 BP Diastolic BP Location Tested BP Systolic [...] Type Weight in lbs Pre/Post Dialysis Refused 147.032053304994 BP Diastolic BP Location Tested BP Systolic BP Type 70 L arm 104 sitting Fetus Heart Rate Present Fetus Movement A Yes Comments Flowsheet Date 06/27/2025 Solorzano Score Blood Edema Fundus Height Fundus Units Glucose Ketones Leukocytes Nitrite Labor Signs Protein Cervic Dilation Cervic Effacement Cervic Station Type Weight in lbs Pre/Post Dialysis Refused 147.709890302142 BP Diastolic BP Location Tested BP Systolic [...]
[2025-07-01 07:09] LABS: Hematocrit 30.3 % (37.0-47.0); Hemoglobin 10.0 g/dL (12.0-15.0); Immature Granulocyte Percent A 2.4 % (0-0.5); Lymphocytes Absolute Auto 0.98 K/mm3 (0.9-3.2); Mean Corpuscular HGB Conc 33.0 g/dl (32-36); Mean Corpuscular Hemoglobin 29.2 pg (26-34); Mean Corpuscular Volume 88.6 fl (80-100); Nucleated Red Blood Cells Absolute Auto 0.000 K/mm3 (0.0-0.012); Nucleated Red Blood Cells Perc 0.0 % (0.0-0.2); Platelet Count Result 176 k/mm3 (150-375); Red Blood Count 3.42 M/mm3 (4.2-5.4); White Blood Count 4.2 K/mm3 (4.5-10.0)
[2025-07-01] MEDS: OXYTOCIN 30 UNITS/NS 500 ML 30 UNITS/500 ML BAG IV CONT (07:53)
[2025-07-01] MEDS: LACTATED RINGERS 1,000 ML 125 ML IV CONT ×2 (07:54→16:17)
--- NOTE | 2025-07-01 08:00 | LDADM ---
This patient, Gisela Bates, was admitted to Labor/Delivery/Recovery 107 on 07/01/25 at 06:11. Plans for labor, pain management and were discussed with patient. Patient/family oriented to hospital policies and general routines including ID bracelet, bed and alarms, visiting hours, pain management, procedures, bathroom and other care routines, personal items, smoking policy, room service/diet and guest tray routines, security routines, and visiting hours. Patient/Family are encouraged to report perceived risks to care and to ask questions if they do not understand what they are told or what they should do. See OBIX for further documentation.
--- NOTE | 2025-07-01 08:27 | WPDOBADMIT ---
Obstetrics - Admit Note Admission Note: record reviewed. No pertinent additions to the history and/or any subsequent changes in the physical findings that are not consistent with the expected course of the were found. Additions to the history and/or subsequent changes in the physical findings follow. Admit for IOL, SV 0.5/50/soft
[2025-07-01 10:39] LABS: Syphilis IgG/IgM Antibody Reactive (Nonreactive)
--- NOTE | 2025-07-01 10:59 | P.PNAN_ITS ---
Anes - Eval Pre Procedure Procedure: labor pain management Date/Time: 07/01/25 10:59 Surgeon: Rey Preop Diagnosis: pain during labor Pre Op Diagnosis: IOL Patient Data Age: 20 Gender: F Height: Weight: Last Vital Signs Pulse 85 07/01/25 10:31 BP 131/78 07/01/25 10:31 Allergies Allergy/AdvReac Type Severity Reaction Status Date / Time No Known Allergies Allergy Verified 06/29/25 13:34 Home Medications ?Medication ?Instructions ?Recorded ?Confirmed ?Type vitamins-iron fumarate 65 1 tablet PO DAILY 1 06/29/25 History mg iron-folic acid 1 mg tablet (Mynatal-Z) Laboratory Tests 07/01/25 06:48 WBC 4.2 L K/mm3 (4.5-10.0) RBC 3.42 L M/mm3 (4.2-5.4) Hgb 10.0 L g/dL (12.0-15.0) Hct 30.3 L % (37.0-47.0) MCV 88.6 fl (80-100) MCH 29.2 pg (26-34) MCHC 33.0 g/dl (32-36) RDW 17.7 H % (11.5-14.5) Plt Count 176 k/mm3 (150-375) MPV 9.2 fl (7.4-10.4) Immature Gran % (Auto) 2.4 H % (0-0.5) Neut % (Auto) 61.4 % (45.5-73.1) Lymph % (Auto) 23.2 % (18.3-44.2) [place] % (Auto) 8.5 % (2.6-8.5) Eos % (Auto) 4.0 % (0-4.4) Baso % (Auto) 0.5 % (0.2-1.2) Lymph # (Auto) 0.98 K/mm3 (0.9-3.2) [place] # (Auto) 0.4 K/mm3 (0.1-0.6) Eos # (Auto) 0.2 K/mm3 (0-0.3) Baso # (Auto) 0.0 K/mm3 (0.0-0.1) Abs Immat Gran (auto) 0.10 H K/mm3 (0.00-0.031) Absolute Neuts (auto) 2.6 K/mm3 (1.3-6.7) Absolute Nucleated RBC 0.000 K/mm3 (0.0-0.012) Nucleated RBC % 0.0 % (0.0-0.2) Syphilis IgG/IgM Ab Reactive A (Nonreactive) RPR Pending Treponema pallidum Ab Pending Blood Type B Positive Antibody Screen Negative Patient hx anesthesia problems: none Family hx anesthesia problems: none Results Review: All pre-operative results and documents have been reviewed as part of the pre- operative evaluation. [facility] Past Medical History Medical History (Updated 06/15/25 @ 22:14 by Isidro Le MD) No active medical problems Social History Social History (Updated 02/16/22 @ 02:05 by Marion Parmar MD) Smoking status: Never smoker Substance use: never Lack of Transportation: No Lack of Food: Never True Current Housing: I Do Not Have Housing Concerned About Future Housing: No Difficulty Paying Gas/Electric Bills: No Difficulty Paying for Meds: No Currently Unemployed: YES Education: Trade/Vocational Certificate Difficulty w/ Childcare or Family Care: No Spiritual care concerns: No Exam Day of Procedure 07/01/25 10:59
--- NOTE | 2025-07-01 13:36 | PM.OBPNLAB ---
Pain Control Date/time seen: 07/01/25 13:36 Comments: pt comfortable with epidural SVE /-[address] navarro aware
[2025-07-01 14:48] LABS: Reference Lab Test Name RPR TITER
--- NOTE | 2025-07-01 18:11 | PM.OBPRVD ---
OB - Vaginal Delivery Note Procedure Delivery date: 07/01/25 Induction method: Per Misoprostol Protocol Delivery augmentation: Rupture of Membranes Delivery monitor: External FHT and External Uterine Route of delivery: Episiotomy description: None Laceration Description: None Specimen: No Quantitative Blood Loss (ml): 25 Anesthesia type: Epidural Complications: None [place] Baby Date of : 07/01/25 Time of : 18:01 Gestational Age by Date: 39 Infant gender: Male Weight (pounds): 8 Weight (ounces): 1 presentation: vertex position: Right Occiput Anterior Placenta delivery description: Spontaneous and Expressed Cord Vessel Description: 3 Vessels, Tight (x1) and Clamped/Cut score one minute: 8 score five minutes: 9
[2025-07-01] MEDS: OXYTOCIN 30 UNITS/NS 500 ML 30 UNITS/500 ML BAG 125 UNITS IV CONT (18:47)
--- NOTE | 2025-07-01 21:08 | OBPPTRN ---
Patient transferred to post room #288 via wheelchair. Oriented to unit, room, information board, rooming in, admission packet and security measures. Patient verbalizes understanding.
[2025-07-01] MEDS: ACETAMINOPHEN 325 MG TABLET 650 MG PO (21:43)
[2025-07-02] MEDS: IBUPROFEN 600 MG TABLET PO ×3 (00:45→16:14)
[2025-07-02 00:55] VITALS: BP 121/78; PULSE 79; RESP 18; TEMP 36.6; O2SAT 100
[2025-07-02 04:30] VITALS: BP 106/66; PULSE 67; RESP 15; TEMP 36.7; O2SAT 95
[2025-07-02 05:37] LABS: Hematocrit 32.1 % (37.0-47.0); Hemoglobin 10.7 g/dL (12.0-15.0)
--- NOTE | 2025-07-02 08:14 | P.PNOB_ITS ---
OB - PN: Subj Subjective Date/time seen: 07/02/25 08:14 Interval history: pp day 1 bottle feeding no complaints OB - PN: Obj Data Labs 07/02/25 04:44 Labs: Laboratory Results - last 24 hr 07/01/25 07/01/25 07/01/25 06:48 06:48 06:48 Hgb Hct Syphilis IgG/IgM Ab Reactive A Ref Lab Test Name Rpr titer Treponemal antibody Ref Lab Test Result 07/02/25 04:44 Hgb 10.7 L Hct 32.1 L Syphilis IgG/IgM Ab Ref Lab Test Name Ref Lab Test Result OB - PN A/P Plan day: 1 Plan: routine care Time Spent With Patient Time: Total time spent is greater than 50% in coordination of care (as documented) at patient's floor/unit and/or counseling patient: Review of Systems 2 Review of Systems: All systems reviewed & are unremarkable except as noted in HPI and below Exam 2 Const: General: cooperative, healthy appearing and comfortable Chest: Chest palpation & inspection: normal inspection of the chest Resp: Effort & Inspection: normal respiratory effort Skin: General skin exam: normal color Neuro: General: patient oriented x3 Psych: Appearance: grossly normal
[2025-07-02 08:40] VITALS: BP 105/72; PULSE 68; RESP 16; TEMP 37; O2SAT 100
[2025-07-02] MEDS: DOCUSATE SODIUM 100 MG CAPSULE PO (09:31)
[2025-07-02] MEDS: ACETAMINOPHEN 325 MG TABLET 650 MG PO ×2 (09:31→16:14)
[2025-07-02 11:40] VITALS: BP 109/63; PULSE 79; RESP 16; TEMP 36.6; O2SAT 98
--- NOTE | 2025-07-02 13:25 | WPDANLDPN2 ---
Anes-Prog Note L&D Date/Time: 07/02/25 13:25 Comfortable throughout: labor and delivery Neuraxial method: epidural Epidural/Spinal procedure site: clean & non-tender Neuro status: Neuro function grossly intact. Cardiovascular status: normal Respiratory status: normal Airway patency: baseline Mental status: baseline Post-Op hydration status: normal Vital Signs: Last Vital Signs Temp 97.8 F 07/02/25 11:40 Pulse 79 07/02/25 11:40 Resp 16 07/02/25 11:40 BP 109/63 07/02/25 11:40 Pulse Ox 98 07/02/25 11:40 O2 Del Method Room Air 07/02/25 11:40 Pain score (VAS): 0 I/O: Intake & Output 07/01/25 07/02/25 07/02/25 23:59 07:59 15:59 Intake Total 0 Output Total 125 Balance -125 0 Post-procedural complaints: none Patient feedback: Patient satisfied with anesthetic care.
--- NOTE | 2025-07-02 15:50 | PCCCNOTE ---
Recvd consult requesting additional resources. Met with pt., pt's 1 year old son, and pt's father Sanchez at baseline. Pt. reports she and her two children will be staying with Sanchez in [place]. Pt. reports her friend Monique is supportive and will assist as needed. Pt. reports having baby supplies, and already established with WIC and [facility] [place]. Pt. denies any prior DCFS involvement, or drug use during . resources provided to pt. RN reports have already provided pt. with [facility] resources as assessment indicated. Pt. denies further needs. RN Laura aware of visit.
[2025-07-02 19:10] VITALS: BP 125/70; PULSE 65; RESP 16; TEMP 37.2; O2SAT 99
[2025-07-03 07:20] VITALS: BP 125/74; PULSE 62; RESP 16; TEMP 36.8; O2SAT 100
--- NOTE | 2025-07-03 08:59 | P.PNOB_ITS ---
OB - PN: Subj Subjective Date/time seen: 07/03/25 08:59 Interval history: pp day 1 bottle feeding no complaints Patient comments: no complaints, pain well controlled and tolerating diet OB - PN: Obj Data Labs 07/02/25 04:44 OB - PN A/P Plan day: 2 Plan: routine care and discharge home Time Spent With Patient Time: Total time spent is greater than 50% in coordination of care (as documented) at patient's floor/unit and/or counseling patient: Exam 2 Const: General: comfortable and no acute distress Resp: Effort & Inspection: normal respiratory effort Auscultation: no rales, no rhonchi and no wheezes Cardio: Rate: regular rate Heart sounds: no click, no murmurs and no rubs GI: GI Palp: Yes Soft to palpation and No Tenderness to palpation present (GI) Auscultation: normal bowel sounds Extrem: General: normal to inspection, no pedal edema and no calf tenderness
--- NOTE | 2025-07-03 09:00 | P.DS_ITS ---
DS: Admitting Diagnosis Discharge Date 07/03/2025 Admitting Diagnosis Term OB - DS: Summary OB Procedures : None OB Procedures Intrapartum: Spontaneous Vag Delivery OB Procedures: : None Peripartum Data Laceration Description: None Episiotomy description: None Time Spent with Patient Time attestation: Total time spent providing and/or coordinating discharge services: Discharge Plan Discharge Discharging Clinician: Isidro Le Patient Disposition: Home Activity: pelvic rest Diet: regular Patient Instructions: Antibiotic Form Patient Language: Portuguese Stand Alone Forms: General Discharge Information Follow-up/Referrals: Isidro Le MD [Physician, [employer]] Discharge Medications: Continued Mynatal-Z 65 mg iron- 1 mg tablet 1 tablet PO DAILY Patient Comments: has not been taking last week. Date of admission: 07/01/25 06:11 Primary Care Provider: PHYSICIAN,MICROBIOLOGY LAB MANAGER Admitting Provider: Isidro Le Attending physician on admission: Isidro Le Condition: Stable
[2025-07-03] MEDS: IBUPROFEN 600 MG TABLET PO ×2 (09:31→15:31)
[2025-07-03] MEDS: ACETAMINOPHEN 325 MG TABLET 650 MG PO ×2 (09:31→15:30)
[2025-07-03] MEDS: DOCUSATE SODIUM 100 MG CAPSULE PO (09:31)
--- NOTE | 2025-07-03 10:50 | PC.NURSE ---
Patient viewed the discharge video Mother & Baby Care, The First Two Weeks. Patient was given the opportunity and encouraged to ask questions. Patient verbalized understanding of information shared and has been given the mother/baby guide for home reference.
[2025-07-05 11:39] VITALS: BP 121/77; PULSE 70; RESP 18; TEMP 36.7; O2SAT 100
== END 2025-07-03 15:36 | disposition home or self-care (01) | DRG 560 ==
LOC: ANHLDR 06:16 → ANHOB2 21:22
PROVIDERS: Advanced Practice Midwife; Admitting Provider Obstetrics & Gynecology; Visit Provider Obstetrics & Gynecology
DX: O69.1XX0 Labor and delivery complicated by cord around neck, with compression, not applicable or unspecified (principal); Z37.0 Single live birth; Z3A.39 39 weeks gestation of pregnancy
CPT/HCPCS: 36415; 85014; 85018; 85025; 86593; 86850; 86900; 86901; A9270; J2003; J2590; J2795; J7120